=== PATIENT | female | born 1945 | race Caucasian/White ===

== ENCOUNTER 2022-12-27 10:17 | Emergency (ER) | payer MEDICARE, OTHER, SELFPAY ==
[2022-12-27 10:28] VITALS: BP 146/67; PULSE 82; RESP 16; TEMP 36.1; O2SAT 96; BMI 36.3
--- NOTE | 2022-12-27 10:46 | ED.GENADULT ---
HPI - General Adult General Chief complaint: Laceration/Wound Stated complaint: Gash on top of head Time Seen by Provider: 12/27/22 10:20 Source: patient Mode of arrival: ambulatory Limitations: no limitations History of Present Illness HPI narrative: 77-year-old female coming in today with laceration to the scalp. She states she was taking a nap when an object fell on her head. Patient has a shelf directly above her bed where she had a 5 lb concrete object on it. Her cat jumped on the shelf and not the object over falling directly on top of her head. This occurred approximately 2 hours ago. She has a mild headache at the site of the laceration, no dizziness, changes in vision or hearing. No speech changes. She denies any vomiting. She is not on any blood thinners. Related Data Home Medications Medication Instructions Recorded Confirmed atorvastatin 20 mg tablet 20 mg PO DAILY 12/27/22 12/27/22 bupropion HCl 100 mg tablet PO 12/27/22 cetirizine 5 mg tablet PO 12/27/22 cyanocobalamin (vitamin B-12) 2,000 mcg PO DAILY 12/27/22 12/27/22 1,000 mcg tablet diclofenac sodium 1 % topical gel 4 g topical QID PRN pain 12/27/22 12/27/22 docusate sodium 100 mg capsule 100 mg PO QPM 12/27/22 12/27/22 fluticasone propionate 50 1 spray intranasal BID 12/27/22 12/27/22 mcg/actuation nasal spray,suspension furosemide 20 mg tablet PO 12/27/22 gabapentin 600 mg tablet 1,200 mg PO BID 12/27/22 12/27/22 levothyroxine 137 mcg tablet 137 mcg PO DAILY 12/27/22 12/27/22 losartan 50 mg tablet 50 mg PO DAILY 12/27/22 12/27/22 melatonin 3 mg tablet 4.5 mg PO QPM insomnia 12/27/22 12/27/22 multivitamin with minerals-folic 1 tab PO DAILY 12/27/22 12/27/22 acid 80 mcg chewable tablet (Centrum Adult 50 Plus) omeprazole 40 mg capsule,delayed 40 mg PO DAILY 12/27/22 12/27/22 release tramadol 50 mg tablet 50 mg PO QAM 12/27/22 12/27/22 umeclidinium 62.5 mcg/actuation 1 inh inhalation DAILY 12/27/22 12/27/22 blister powder for inhalation (Incruse Ellipta) venlafaxine 75 mg tablet PO 12/27/22 Allergies Allergy/AdvReac Type Severity Reaction Status Date / Time droperidol Allergy Unknown Verified 12/27/22 10:25 Polyglactin Allergy Unknown Verified 12/27/22 10:25 Sulfa (Sulfonamide Allergy Unknown Verified 12/27/22 10:25 Antibiotics) Reglan Allergy Unknown Uncoded 01/24/22 11:09 Review of Systems Status of ROS: Reports: 10 or more systems reviewed and unremarkable except as noted in History and below [facility] Social History Smoking Status: Never smoker Do you use any of these nicotine containing products: None Second hand tobacco smoke exposure: No How often do you have a drink containing alcohol: monthly or less How many standard drinks containing alcohol do you have on a typical day: 1 or 2 AUDIT-C Alcohol total score: 1 Non-prescribed substance use: denies use service: No Exam Narrative: Exam Narrative: Well-nourished well-developed elderly patient in no acute distress. Alert and oriented x3. Answers questions appropriately. Mood and affect are appropriate. Thoughts are goal oriented and rational. No tangential or magical thinking noted. Patient speaks in full sentences without needing to catch her breath. Edentulous. HEENT: Normocephalic. Pupils are equally round reactive to light. Extraocular muscles are intact. Conjunctivae are moist without any icterus noted. Moist mucous membranes. On the left parietal scalp patient has a 1 in long laceration through the skin and into the subcutaneous tissue. No scalp is visible. Skin is not gaping open. Skin: Well perfused without any obvious rashes. Const: Vital Signs, click to edit/add: Vital Signs - 24 hr 12/27/22 10:28 Temperature 97.0 F L Pulse Rate [Pulse Oximeter] 82 Respiratory Rate 16 Blood Pressure [Ri ght Upper Arm] 146/67 H Pulse Oximetry 96 Oxygen Delivery Me thod Room Air Course Course Hospital Course: Wound was irrigated and anesthetized with lidocaine with epinephrine. Five miguelito were placed without complications or difficulty. Vital Signs Vital signs: Initial Vital Signs Temperature 97.0 F L 12/27/22 10:28 Temperature Source Temporal Artery Scan 12/27/22 10:28 Pulse Rate 82 12/27/22 10:28 Pulse Rhythm Regular 12/27/22 10:28 Pulse Strength 3+ Normal 12/27/22 10:28 Respiratory Rate 16 12/27/22 10:28 Blood Pressure 146/67 H 12/27/22 10:28 Blood Pressure Mean 93 12/27/22 10:28 Blood Pressure Position Sitting 12/27/22 10:28 Pulse Oximetry 96 12/27/22 10:28 Oxygen Delivery Method Room Air 12/27/22 10:28 Vital Signs Temperature 97.0 F L 12/27/22 10:28 Pulse Rate 82 12/27/22 10:28 Respiratory Rate 16 12/27/22 10:28 Blood Pressure 146/67 H 12/27/22 10:28 Pulse Oximetry 96 12/27/22 10:28 Oxygen Delivery Method Room Air 12/27/22 10:28 Temperature 97.0 F L 12/27/22 10:28 Pulse Rate 82 12/27/22 10:28 Respiratory Rate 16 12/27/22 10:28 Blood Pressure 146/67 H 12/27/22 10:28 Pulse Oximetry 96 12/27/22 10:28 Oxygen Delivery Method Room Air 12/27/22 10:28 Medical Decision Making MDM Narrative Medical decision making narrative: 77-year-old female laceration of the scalp treated per above. Tetanus shot was updated today as well. We discussed wound hygiene, signs and symptoms of infections reasons for follow-up. Stable removal in approximately 1 week. Discharge Plan Discharge Clinical Impression: Laceration Patient Disposition: Home, Self-Care Condition: Improved Additional Instructions: Keep head clean and dry. Okay to shower and wash her head like he normally would but avoid soaking such as going swimming. Watch for signs of infection which include redness of the area around the laceration, drainage. You should have your miguelito removed by your primary care provider in approximately 1 week. Prescriptions: No Action atorvastatin 20 mg tablet 20 mg PO DAILY bupropion HCl 100 mg tablet PO Centrum Adult 50 Plus 80 mcg tablet,chewable 1 tab PO DAILY losartan 50 mg tablet 50 mg PO DAILY levothyroxine 137 mcg tablet 137 mcg PO DAILY gabapentin 600 mg tablet 1,200 mg PO BID venlafaxine 75 mg tablet PO cetirizine 5 mg tablet PO cyanocobalamin (vitamin B-12) 1,000 mcg tablet 2,000 mcg PO DAILY melatonin 3 mg tablet 4.5 mg PO QPM omeprazole 40 mg capsule,delayed release(DR/EC) 40 mg PO DAILY tramadol 50 mg tablet 50 mg PO QAM docusate sodium 100 mg capsule 100 mg PO QPM furosemide 20 mg tablet PO fluticasone propionate 50 mcg/actuation spray,suspension 1 spray INTRANASAL BID diclofenac sodium 1 % gel 4 g topical QID PRN (Reason: pain) Incruse Ellipta 62.5 mcg/actuation blister with device 1 inh INHALATION DAILY Stand Alone Forms: [facility] Info Instructions
[2022-12-27] MEDS: TETANUS/DIPHTH/PERTUSSIS 0.5 ML SYRINGE IM (11:17)
== END 2022-12-27 11:42 | disposition home or self-care (01) ==
PROVIDERS: Emergency Provider Family Medicine
DX: S01.01XA Laceration without foreign body of scalp, initial encounter (principal); W22.8XXA Striking against or struck by other objects, initial encounter
CPT/HCPCS: 12001; 90471; 90715; 99283; 99284

== ENCOUNTER 2023-02-06 09:29 | Outpatient (CLI) | payer MEDICARE, OTHER, SELFPAY | END 2023-02-06 09:30 | disposition home or self-care (01) | PROVIDERS: PCP Family Medicine; Visit Provider Family Medicine | DX: I10 Essential (primary) hypertension (principal); E78.5 Hyperlipidemia, unspecified; E03.9 Hypothyroidism, unspecified | CPT/HCPCS: 80053; 80061; 84443 ==

== ENCOUNTER 2023-03-22 08:16 | Emergency (ER) | payer MEDICARE, OTHER, SELFPAY ==
[2023-03-22 08:28] VITALS: BP 139/62; PULSE 81; RESP 18; TEMP 36.2; O2SAT 98; BMI 36.0
--- NOTE | 2023-03-22 08:40 | CRLHL7_ITS ---
For Patients: As a result of the Century Cures Act, medical imaging exams and procedure reports are released immediately into your electronic medical record. You may view this report before your referring provider. If you have questions, please contact your health care provider. INDICATION: .DECREASED STOMA OUTPUT TECHNIQUE: CT abdomen and pelvis without contrast. COMPARISON: September 2021. FINDINGS: Lower chest: Calcified granuloma. Dense mitral calcification. ABDOMEN: Liver: Normal attenuation. Gallbladder and biliary: Cholecystectomy. Normal caliber bile ducts. Spleen: Normal size and attenuation. Pancreas: The noncontrast pancreas is homogeneous in attenuation without peripancreatic inflammatory changes or ductal dilatation. Adrenal glands: Normal adrenal glands. Kidneys and ureters: Normal attenuation. No radio-opaque calculi. No hydroureteronephrosis. GI tract: Iam-en-Y gastric bypass. Excluded stomach contains fluid. Fluid-filled distended and dilated loops of small bowel measuring up to 4.6 cm extending towards the patient`s right lower quadrant ileostomy. This becomes decompressed as the small-bowel traverses the ostomy site. Small amount of mesenteric edema abutting the bowel just prior to the ostomy. No pneumatosis Koko`s pouch. Vascular structures: Normal caliber aorta with atherosclerotic calcifications. Lymph nodes: No lymphadenopathy in the abdomen or pelvis by size criteria. Peritoneum: No free air or focal drainable collections. Diastasis of the rectus abdominis musculature. PELVIS: Genitourinary system: Urinary bladder is relatively decompressed. Atrophic uterus. SKELETAL STRUCTURES AND SOFT TISSUES: Lumbar spondylosis. IMPRESSION: Fluid-filled distended and dilated loops of small bowel measuring up to 4.6 cm extending towards the patient`s right lower quadrant ileostomy. This becomes decompressed as the small-bowel traverses the ostomy site. Small amount of mesenteric edema abutting the bowel just prior to the ostomy. 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 No pneumatosis. Please note that all CT scans at this facility use dose modulation, iterative reconstruction, and/or weight-based dosing when appropriate to reduce radiation dose to as low as reasonably achievable. Dictated by Hill Yen MD @ 03/22/2023 12:19:36 PM (Electronically Signed)
--- NOTE | 2023-03-22 08:57 | ED_ITS ---
HPI - General Adult General Date Seen: 03/22/23 Chief complaint: Abdominal Pain Stated complaint: Blockage, stoma pain Time Seen by Provider: 03/22/23 08:25 Source: patient and RN notes reviewed Mode of arrival: ambulatory Limitations: no limitations History of Present Illness HPI narrative: Patient is a 77-year-old woman with a history of ostomy. She notes for the past couple of days she has had worsening abdominal pain associated with no output from her stoma. She says she has had a blockage in the past, thought maybe if she took some stool softener she would improve but she is not improved. She does not believe she has had a fever, she has not had vomiting. Diffuse abdominal pain which she now describes as severe. History of atrial fibrillation although I do not see any anticoagulation. Other medical history and medications reviewed. She is status post total colectomy. She does not smoke or drink. Related Data Home Medications Medication Instructions Recorded Confirmed cyanocobalamin (vitamin B-12) 2,000 mcg PO DAILY@1200 12/27/22 03/22/23 1,000 mcg tablet diclofenac sodium 1 % topical gel 4 g topical QID PRN pain 12/27/22 03/22/23 docusate sodium 100 mg capsule 100 mg PO HS 12/27/22 03/22/23 fluticasone propionate 50 2 spray intranasal DAILY PRN 12/27/22 03/22/23 mcg/actuation nasal spray,suspension melatonin 3 mg tablet 4.5 mg PO HS insomnia 12/27/22 03/22/23 multivitamin with minerals-folic 2 tab PO DAILY@1200 12/27/22 03/22/23 acid 80 mcg chewable tablet (Centrum Adult 50 Plus) omeprazole 40 mg capsule,delayed 40 mg PO DAILY 12/27/22 03/22/23 release venlafaxine 75 mg tablet 75 mg PO TID 12/27/22 03/22/23 acetaminophen 500 mg tablet 1,000 mg PO 3XD 03/22/23 03/22/23 atorvastatin 20 mg tablet 20 mg PO HS 03/22/23 03/22/23 cetirizine 5 mg tablet 5 mg PO Q48H 03/22/23 03/22/23 cholecalciferol (vitamin D3) 50 50 mcg PO DAILY@1200 03/22/23 03/22/23 mcg (2,000 unit) capsule furosemide 20 mg tablet 20 mg PO MOFR 03/22/23 03/22/23 losartan 50 mg tablet 50 mg PO HS 03/22/23 03/22/23 Previous Rx's Medication Instructions Recorded bupropion HCl 100 mg tablet 100 mg PO BID #180 tabs 02/06/23 gabapentin 600 mg tablet 900 mg (1.5 x 600 mg) PO TID #405 02/06/23 tabs hydrocortisone 2.5 % topical cream 1 applic topical BID PRN rash #28 02/06/23 grams levothyroxine 137 mcg tablet 137 mcg PO DAILY #90 tabs 02/06/23 tramadol 50 mg tablet 50 mg PO QAM #90 tabs 02/06/23 Allergies Allergy/AdvReac Type Severity Reaction Status Date / Time droperidol Allergy Unknown Verified 03/22/23 08:38 metoclopramide [From Reglan] Allergy Unknown Verified 03/22/23 08:55 Polyglactin Allergy Unknown Verified 03/22/23 08:38 Sulfa (Sulfonamide Allergy Unknown Verified 03/22/23 08:38 Antibiotics) Review of Systems Status of ROS: Reports: 10 or more systems reviewed and unremarkable except as noted in History and below [facility] Medical History Small bowel obstruction ?K56.609 - Unspecified intestinal obstruction, unspecified as to partial versus complete obstruction (ICD-10) POLST (Physician Orders for Life-Sustaining Treatment) (~08/26/21) ?Z78.9 - Other specified health status (ICD-10) History of renal stone ?Z87.442 - Personal history of urinary calculi (ICD-10) History of DVT (deep vein thrombosis) ?Z86.718 - Personal history of other venous thrombosis and embolism (ICD-10) History of ischemic bowel disease (~2005) ?Z87.19 - Personal history of other diseases of the digestive system (ICD-10) Bleeding gastric varices (~2012) ?I86.4 - Gastric varices (ICD-10) Surgical History S/P bunionectomy ?Z98.890 - Other specified postprocedural states (ICD-10) S/P repair of ventral hernia ?Z98.890 - Other specified postprocedural states (ICD-10) ?Z87.19 - Personal history of other diseases of the digestive system (ICD-10) H/O thumb surgery ?Z98.890 - Other specified postprocedural states (ICD-10) S/P carpal tunnel release ?Z98.890 - Other specified postprocedural states (ICD-10) Status post bilateral knee replacements (~2014) ?Z96.653 - Presence of artificial knee joint, bilateral (ICD-10) S/P colectomy ?Z90.49 - Acquired absence of other specified parts of digestive tract (ICD- 10) S/P gastric bypass ?Z98.84 - Bariatric surgery status (ICD-10) Social History What is your current living situation?: I presently have a place to live Problems where you live: no known problems In the past 12 months, utilities in danger of being shut off: no In past 12 months, lack of transportation kept you from medical appts, meetings, work, or getting things needed for daily living: no In the past 12 mos, have been you worried that your food would run out before you had money to buy more?: never true In the past 12 mos, the food you bought just didn't last and you didn't have money to buy more?: sometimes true Smoking Status: Never smoker Do you use any of these nicotine containing products: None Second hand tobacco smoke exposure: No How often do you have a drink containing alcohol: monthly or less How many standard drinks containing alcohol do you have on a typical day: 1 or 2 AUDIT-C Alcohol total score: 1 Non-prescribed substance use: denies use How often does anyone, including family, friends and others, physically hurt you : never How often does anyone, including family, friends and others, insult or talk down to you: never How often does anyone, including family, friends and others, threaten you with harm: never How often does anyone, including family, friends and others, scream or curse at you: never Little interest or pleasure in doing things: several days Feeling down, depressed, or hopeless: several days service: No Exam Narrative: Exam Narrative: Vital signs as noted above. In general, an alert, nontoxic woman. Head: Normocephalic, atraumatic. Eyes: Pupils are equal reactive. Extraocular movements are full. Conjunctivae are normal. ENT: Mucous membranes are moist. Throat is normal. Neck: Supple without lymphadenopathy. Heart: Regular rate and rhythm. No murmur or rub. Lungs: Clear bilaterally. No increased work of breathing, crackles or wheezes. Abdomen: Nondistended. Diffuse tenderness without rebound guarding or rigidity. No ostomy output noted. Extremities: Well perfused. No edema. No calf tenderness. Pulses intact. Neurologic: Patient is alert and oriented to person and place. Speech is fluent. Face is symmetric. Moves all extremities equally. Affect: Normal. Skin: Warm and dry. Well perfused. Const: Vital Signs, click to edit/add: Vital Signs - 24 hr 03/22/23 08:28 03/22/23 10:12 03/22/23 12:33 Temperature 97.1 F L 98.2 F Pulse Rate [Right Pulse Oximeter] 81 86 84 Respiratory Rate 18 18 20 Blood Pressure [Ri ght Upper Arm] 139/62 137/65 129/56 L Pulse Oximetry 98 94 95 Oxygen Delivery Me thod Room Air Room Air Room Air Documenting provider has reviewed patient's vital signs: yes Course Course ED Course: Will place an IV, normal saline, Zofran, morphine. CT scan as well as labs ordered. Diagnostic considerations include likely bowel obstruction, rule out ischemic bowel or other acute process. Labs are fairly reassuring, white blood cell count is normal at 10.4, hemoglobin is 12.2. Metabolic panel is normal, LFT show mild elevations in transaminases, normal bilirubin and alk phos. CRP mildly elevated at 3.3, lipase is 292, TSH was elevated at 6.1 but free T4 is normal at 1.26. UA is unremarkable. Patient did have good pain control with the morphine, she did require a 2nd dose later in her ER stay. CT scan by my review showed fluid-filled dilated loops of small bowel with some air-fluid levels. Final radiology read is as follows:FINDINGS: Lower chest: Calcified granuloma. Dense mitral calcification. ABDOMEN: Liver: Normal attenuation. Gallbladder and biliary: Cholecystectomy. Normal caliber bile ducts. Spleen: Normal size and attenuation. Pancreas: The noncontrast pancreas is homogeneous in attenuation without peripancreatic inflammatory changes or ductal dilatation. Adrenal glands: Normal adrenal glands. Kidneys and ureters: Normal attenuation. No radio-opaque calculi. No hydroureteronephrosis. GI tract: Iam-en-Y gastric bypass. Excluded stomach contains fluid. Fluid- filled distended and dilated loops of small bowel measuring up to 4.6 cm extending towards the patient`s right lower quadrant ileostomy. This becomes decompressed as the small-bowel traverses the ostomy site. Small amount of mesenteric edema abutting the bowel just prior to the ostomy. No pneumatosis Koko`s pouch. Vascular structures: Normal caliber aorta with atherosclerotic calcifications. Lymph nodes: No lymphadenopathy in the abdomen or pelvis by size criteria. Peritoneum: No free air or focal drainable collections. Diastasis of the rectus abdominis musculature. PELVIS: Genitourinary system: Urinary bladder is relatively decompressed. Atrophic uterus. SKELETAL STRUCTURES AND SOFT TISSUES: Lumbar spondylosis. IMPRESSION: Fluid-filled distended and dilated loops of small bowel measuring up to 4.6 cm extending towards the patient`s right lower quadrant ileostomy. This becomes decompressed as the small-bowel traverses the ostomy site. Small amount of mesenteric edema abutting the bowel just prior to the ostomy. 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 No pneumatosis. Case was discussed with Dr. Lind concrete block maker for General surgery. She reviewed the images and patient's medical history, feels that she would be an overly complex surgical patient for our hospital and would be better served at a larger center with colorectal surgery. Patient's surgery was originally done at [place], they were on divert and do not anticipate beds in the near future. We were able to find a bed at [facility], I spoke with the on-call surgeon and colorectal surgery group who feel she is appropriate for transfer there. She has been hemodynamically stable, no vomiting, no other complaints. Stable for transfer. Vital Signs Vital signs: Initial Vital Signs Temperature 97.1 F L 03/22/23 08:28 Temperature Source Temporal Artery Scan 03/22/23 08:28 Pulse Rate 81 03/22/23 08:28 Pulse Rhythm Regular 03/22/23 08:28 Respiratory Rate 18 03/22/23 08:28 Blood Pressure 139/62 03/22/23 08:28 Blood Pressure Mean 87 03/22/23 08:28 Pulse Oximetry 98 03/22/23 08:28 Oxygen Delivery Method Room Air 03/22/23 08:28 Vital Signs Temperature 97.1 F L 03/22/23 08:28 Pulse Rate 81 03/22/23 08:28 Respiratory Rate 18 03/22/23 08:28 Blood Pressure 139/62 03/22/23 08:28 Pulse Oximetry 98 03/22/23 08:28 Oxygen Delivery Method Room Air 03/22/23 08:28 Temperature 98.2 F 03/22/23 10:12 Pulse Rate 84 03/22/23 12:33 Respiratory Rate 20 03/22/23 12:33 Blood Pressure 129/56 L 03/22/23 12:33 Pulse Oximetry 95 03/22/23 12:33 Oxygen Delivery Method Room Air 03/22/23 12:33 Medications Administered Medications: Discontinued Medications Generic Name Dose Route Start Last Admin Trade Name Freq PRN Reason Stop Dose Admin Sodium Chloride 1,000 mls @ 1,000 mls/hr 03/22/23 08:45 03/22/23 10:35 0.9 % Sodium Chloride 1000 Ml IV 03/22/23 09:44 Infused .Q1H CECILIA Infusion Morphine Sulfate 4 mg 03/22/23 08:46 03/22/23 09:22 Morphine 4 Mg/Ml Inj IVP 03/22/23 08:47 4 mg ONCE ONE Administration Morphine Sulfate 4 mg 03/22/23 13:47 03/22/23 13:55 Morphine 4 Mg/Ml Inj IVP 03/22/23 13:48 4 mg ONCE ONE Administration Ondansetron HCl 4 mg 03/22/23 08:46 03/22/23 09:22 Ondansetron 2 Mg/Ml Inj IVP 03/22/23 08:47 4 mg ONCE ONE Administration Medical Decision Making Lab Data Labs: Lab Results 03/22/23 03/22/23 Range/Units 09:26 11:40 WBC 10.37 (4.50-11.00) K/uL RBC 3.91 L (4.00-5.20) m/uL Hgb 12.2 (12.0-16.0) gm/dL Hct 37.6 (33.0-51.0) % MCV 96 (80-100) fL MCH 31 (26-34) pg MCHC 32 (32-36) gm/dL RDW Coeff of [place] 13.5 (11.5-15.5) % Plt Count 268 (140-440) K/uL Neut % (Auto) 84.4 H (42.0-72.0) % Lymph % (Auto) 8.9 L (20-44) % [place] % (Auto) 6.2 (0.0-11.0) % Eos % (Auto) 0.2 (0.0-7.0) % Baso % (Auto) 0.2 (0.0-3.0) % Neut # (Auto) 8.80 H (1.7-7.0) K/uL Lymph # (Auto) 0.90 (0.90-2.90) K/uL [place] # (Auto) 0.60 (0.00-0.90) K/UL Eos # (Auto) 0.02 (0.00-0.50) K/uL Baso # (Auto) 0.02 (0.00-0.30) K/uL Abs Immat Gran (auto) 0.01 (0.00-0.30) K/uL Imm/Tot Granulo (auto) 0.1 % Sodium 138 (135-149) mmol/L Potassium 4.5 (3.6-5.1) mmol/L Chloride 101 (96-114) mmol/L Carbon Dioxide 28 (20-32) mmol/L Anion Gap 9 (7-15) mEq/L BUN 21 (7-30) mg/dL Creatinine 0.8 (0.5-1.5) mg/dL Estimated Creat Clear 41.33 Estimated GFR 76 ml/min Glucose 136 H (60-115) mg/dL Lactate 1.1 (0.5-1.9) mmol/L Calcium 9.1 (8.4-10.6) mg/dL Total Bilirubin 0.6 (0.1-1.5) mg/dL Direct Bilirubin 0.0 (0.0-0.5) mg/dL AST 53 H (12-35) U/L ALT 44 H (4-35) U/L Alkaline Phosphatase 97 (40-150) U/L C-Reactive Protein 3.3 H (0.5-1.0) mg/dL Total Protein 7.5 (6.0-8.3) g/dL Albumin 4.2 (3.3-5.0) g/dL Lipase 292 (23-300) U/L TSH 6.130 H (0.270-4.200) uIU/mL Free T4 1.26 (0.70-1.85) ng/dL Urine Color Yellow (Yellow) Urine Appearance Clear (Clear) Urine pH 5.5 (5.0-8.5) Ur Specific [place] >= 1.030 (1.000-1.030) Urine Protein Negative (Negative) Urine Glucose (UA) Negative (Negative) Urine Ketones Negative (Negative) Urine Blood Negative (Negative) Urine Nitrite Negative (Negative) Urine Bilirubin Negative (Negative) Urine Urobilinogen 0.2 (0.2-1.0) Ur Leukocyte Esterase Negative (Negative) Urine RBC 2-5 A (0-2) Urine WBC 2-5 (0-5) Ur Squamous Epith Cells Few (None-Few) Urine Bacteria None (None) Discharge Plan Discharge Clinical Impression: Complication of ostomy, SBO (small bowel obstruction) Patient Disposition: Xfer Other Discharge Location: [facility] Condition: Improved Prescriptions: No Action bupropion HCl 100 mg tablet 100 mg PO BID Qty: 180 3RF gabapentin 600 mg tablet 900 mg PO TID Qty: 405 3RF hydrocortisone 2.5 % cream 1 applic topical BID PRN (Reason: rash) Qty: 28 3RF levothyroxine 137 mcg tablet 137 mcg PO DAILY Qty: 90 3RF tramadol 50 mg tablet 50 mg PO QAM Qty: 90 1RF acetaminophen 500 mg tablet 1,000 mg PO 3XD cetirizine 5 mg tablet 5 mg PO Q48H Rx Instructions: EVERY OTHER DAY AT HS cholecalciferol (vitamin D3) 50 mcg (2,000 unit) capsule 50 mcg PO DAILY@1200 losartan 50 mg tablet 50 mg PO HS atorvastatin 20 mg tablet 20 mg PO HS furosemide 20 mg tablet 20 mg PO MOFR Rx Instructions: MON AND FRI Centrum Adult 50 Plus 80 mcg tablet,chewable 2 tab PO DAILY@1200 venlafaxine 75 mg tablet 75 mg PO TID cyanocobalamin (vitamin B-12) 1,000 mcg tablet 2,000 mcg PO DAILY@1200 melatonin 3 mg tablet 4.5 mg PO HS omeprazole 40 mg capsule,delayed release(DR/EC) 40 mg PO DAILY docusate sodium 100 mg capsule 100 mg PO HS fluticasone propionate 50 mcg/actuation spray,suspension 2 spray INTRANASAL DAILY PRN diclofenac sodium 1 % gel 4 g topical QID PRN (Reason: pain) Stand Alone Forms: MyHealth Info Instructions
[2023-03-22] MEDS: 0.9 % SODIUM CHLORIDE 1000 ml 1,000 ML IV (09:17)
[2023-03-22] MEDS: MORPHINE 4 MG/ML INJ IVP ×2 (09:22→13:55)
[2023-03-22] MEDS: ONDANSETRON 2 MG/ML inj 4 MG IVP (09:22)
[2023-03-22 09:30] LABS: Lactate Sepsis w/Reflex* 1.1 mmol/L (0.5-1.9)
[2023-03-22 09:37] LABS: Basophils Absolute Auto 0.02 K/uL (0.00-0.30); Basophils Percent Auto 0.2 % (0.0-3.0); Eosinophils Absolute Auto 0.02 K/uL (0.00-0.50); Eosinophils Percent Auto 0.2 % (0.0-7.0); Hematocrit 37.6 % (33.0-51.0); Hemoglobin* 12.2 gm/dL (12.0-16.0); Immature Granulocytes Abs Auto 0.01 K/uL (0.00-0.30); Immature Granulocytes Pct Auto 0.1 %; Lymphocytes Percent Auto 8.9 % (20-44); Mean Corpuscular HGB Conc 32 gm/dL (32-36); Mean Corpuscular Hemoglobin 31 pg (26-34); Mean Corpuscular Volume 96 fL (80-100); Monocytes Percent Auto 6.2 % (0.0-11.0); Neutrophils Percent Auto 84.4 % (42.0-72.0); Platelet Count* 268 K/uL (140-440); RDW Coefficient of Variation % 13.5 % (11.5-15.5); Red Blood Count 3.91 m/uL (4.00-5.20); White Blood Count* 10.37 K/uL (4.50-11.00)
[2023-03-22 09:40] LABS: Slide Review Reflex No
--- NOTE | 2023-03-22 09:48 | ED.NURSE ---
pt had IV that infiltrated in right AC, was complaining of pain.
[2023-03-22 09:52] LABS: Albumin* 4.2 g/dL (3.3-5.0); Chloride* 101 mmol/L (96-114); Sodium* 138 mmol/L (135-149)
[2023-03-22 09:53] LABS: Potassium* 4.5 mmol/L (3.6-5.1)
[2023-03-22 09:54] LABS: Anion Gap 9 mEq/L (7-15); Carbon Dioxide* 28 mmol/L (20-32); Creatinine* 0.8 mg/dL (0.5-1.5); Est. Creatinine Clearance* 41.33; Estimated Glomerular Filt Rate 76 ml/min
[2023-03-22 09:55] LABS: Alkaline Phosphatase* 97 U/L (40-150); Aspartate Amino Transferase* 53 U/L (12-35); Bilirubin Total* 0.6 mg/dL (0.1-1.5); Blood Urea Nitrogen* 21 mg/dL (7-30); Lipase* 292 U/L (23-300); Total Protein* 7.5 g/dL (6.0-8.3)
[2023-03-22 09:56] LABS: Alanine Aminotransferase* 44 U/L (4-35); Calcium* 9.1 mg/dL (8.4-10.6); Glucose* 136 mg/dL (60-115)
[2023-03-22 09:58] LABS: C Reactive Protein* 3.3 mg/dL (0.5-1.0)
[2023-03-22 10:12] VITALS: BP 137/65; PULSE 86; RESP 18; TEMP 36.8; O2SAT 94
[2023-03-22 11:20] LABS: Free T4 Free Thyroxine* 1.26 ng/dL (0.70-1.85)
[2023-03-22 12:09] LABS: Appearance Urine Clear (Clear); Bilirubin Urine Negative (Negative); Blood Urine Negative (Negative); Color Urine Yellow (Yellow); Glucose Urine Negative (Negative); Ketones Urine Negative (Negative); Leukocyte Esterase Urine Negative (Negative); Nitrite Urine Negative (Negative); Protein Urine Negative (Negative); Specific Gravity Urine >= 1.030 (1.000-1.030); Urobilinogen Urine 0.2 (0.2-1.0); pH Urine 5.5 (5.0-8.5)
[2023-03-22 12:32] LABS: Squamous Epithelial Cell Urine Few (None-Few)
[2023-03-22 12:33] VITALS: BP 129/56; PULSE 84; RESP 20; O2SAT 95
[2023-03-22 14:25] VITALS: BP 119/65; PULSE 82; RESP 20; TEMP 36.7; O2SAT 95
--- NOTE | 2023-03-22 15:34 | ED.NURSE ---
Pt report given to EMS.
--- NOTE | 2023-03-22 15:57 | ED.NURSE ---
Pt report given to med surg nurse at [place].
== END 2023-03-22 15:20 | disposition other institution (70) ==
PROVIDERS: Emergency Provider Emergency Medicine; PCP Family Medicine
DX: K56.609 Unspecified intestinal obstruction, unspecified as to partial versus complete obstruction (principal); T85.698A Other mechanical complication of other specified internal prosthetic devices, implants and grafts, initial encounter
CPT/HCPCS: 36415; 74176; 80048; 80076; 81001; 83605; 83690; 84439; 84443; 85025; 86140; 99284; 99285; J2270; J2405; J7030

== ENCOUNTER 2023-03-22 15:04 | Outpatient (CLI) | payer MEDICARE, OTHER, SELFPAY | END 2023-03-22 15:05 | disposition home or self-care (01) | LOC: AMB 03-23 14:26 | PROVIDERS: PCP Family Medicine; Visit Provider Emergency Medicine | DX: K56.609 Unspecified intestinal obstruction, unspecified as to partial versus complete obstruction (principal) | CPT/HCPCS: A0425; A0426 ==

== ENCOUNTER 2023-05-24 15:09 | Emergency (ER) | payer MEDICARE, OTHER, SELFPAY ==
[2023-05-24] VITALS (27 sets, daily range): BP systolic 115–178; BP diastolic 65–115; PULSE 77–87; RESP 18–20; TEMP 36.1; O2SAT 87–99; BMI 37.2
--- NOTE | 2023-05-24 16:19 | CRLHL7_ITS ---
For Patients: As a result of the Century Cures Act, medical imaging exams and procedure reports are released immediately into your electronic medical record. You may view this report before your referring provider. If you have questions, please contact your health care provider. INDICATION: MID ABD PAIN, HX OBSTRUCTION. TECHNIQUE: CT abdomen and pelvis acquired with 100 cc Isovue 370 IV contrast. COMPARISON: None. FINDINGS: Lower chest: The right lower lobe calcified granuloma. Liver: Unremarkable. Normal in size and attenuation. No suspicious masses. Gallbladder and bile ducts: Gallbladder is absent. Mild intra and extrahepatic ductal dilatation likely related to reservoir effect. Pancreas: Unremarkable. No mass or inflammation. Spleen: Unremarkable. Normal in size. No masses. Adrenal glands: Unremarkable. No nodules. Kidneys: Unremarkable. No suspicious masses, stones, or hydronephrosis. GI tract: Status post gastric bypass. Postsurgical changes from colectomy. Right lower quadrant ileostomy. There is abrupt narrowing of the small bowel at the right abdominal wall at the site of the ileostomy. Proximally there is dilated loops of bowel with fecalization of the bowel content consistent with delayed transit. Bowel loops measure up to 4.7 centimeters in diameter. Gradual tapering to normal diameter proximally. Vasculature: Abdominal aorta is normal in caliber. Mesenteric arteries are patent. Lymph nodes: No lymphadenopathy. Peritoneum/Abdominal Wall: mild mesenteric edema is noted. Midline surgical scar. Ventral abdominal fat and bowel containing hernia. Small parastomal fat containing hernia. No intra-abdominal free air or free fluid. The Pelvis: Unremarkable. Bones: Scoliosis. Diffuse degenerative changes. IMPRESSION: 1. small-bowel obstruction with transition point at the right lower quadrant abdominal wall at the site of the ileostomy. There is fecalization of the bowel contents proximal to this with mild dilation of the small bowel loops consistent with delayed transit. 2. Postsurgical changes from gastric bypass and colectomy. Please note that all CT scans at this facility use dose modulation, iterative reconstruction, and/or weight-based dosing when appropriate to reduce radiation dose to as low as reasonably achievable. Dictated by Rick Barnett MD @ 05/24/2023 7:00:07 PM (Electronically Signed)
--- NOTE | 2023-05-24 16:23 | ED.GENADULT ---
HPI - General Adult General Chief complaint: Abdominal Pain <Tala Bell MD - Last Filed: 05/29/23 10:51> Stated complaint: Stoma pain <Tala Bell MD - Last Filed: 05/29/23 10:51> Time Seen by Provider: 05/24/23 15:56 <Tala Bell MD - Last Filed: 05/29/23 10:51> Source: patient <Tala Bell MD - Last Filed: 05/29/23 10:51> Mode of arrival: ambulatory <Tala Bell MD - Last Filed: 05/29/23 10:51> Limitations: no limitations <Tala Bell MD - Last Filed: 05/29/23 10:51> History of Present Illness HPI narrative: [age] Year old female presenting today with abdominal pain. States that she had potato soup for dinner last night and that it caused abdominal discomfort located across the middle of the abdomen. She states that since then the pain has been getting worse. She feels nauseated, denies vomiting. States that she has not eaten anything today. Also states that there has been no output from her ileostomy bag since 8:00 a.m. today which is now a total of 8 hours. She states that this is unusual. She denies any urinary symptoms. No fevers or chills. No seems to make the abdominal pain better or worse. Patient does state that she had a bowel obstruction last March which required surgical intervention, this feels very similar to that. At that time, she was transferred to [facility] due to her complex city and our lack of a colorectal surgeon. She has gotten care at [place] in the past but [place] was on divert at that time. She has been having intermittent abdominal discomfort on and off and was seen in the clinic in the [address] was done. I did review the results of that scan, no acute findings were found at that time. It sounds like in the early 1999s patient had a colectomy secondary to ischemic bowel with placement of ileostomy. 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 At [facility] she had an open lysis of adhesions and removal of a bezoar and a mesh that was causing part of the obstruction. It sounds like she may need a probable ileostomy revision at this time. Lastly, she has also had a gastric bypass. <Tala Bell MD - Last Filed: 05/29/23 10:51> Related Data Home medications: Home Medications Medication Instructions Recorded Confirmed cyanocobalamin (vitamin B-12) 2,000 mcg PO DAILY@1200 12/27/22 03/22/23 1,000 mcg tablet diclofenac sodium 1 % topical gel 4 g topical QID PRN pain 12/27/22 03/22/23 docusate sodium 100 mg capsule 100 mg PO HS 12/27/22 03/22/23 fluticasone propionate 50 2 spray intranasal DAILY PRN 12/27/22 03/22/23 mcg/actuation nasal spray,suspension melatonin 3 mg tablet 4.5 mg PO HS insomnia 12/27/22 03/22/23 multivitamin with minerals-folic 2 tab PO DAILY@1200 12/27/22 03/22/23 acid 80 mcg chewable tablet (Centrum Adult 50 Plus) omeprazole 40 mg capsule,delayed 40 mg PO DAILY 12/27/22 03/22/23 release venlafaxine 75 mg tablet 75 mg PO TID 12/27/22 03/22/23 acetaminophen 500 mg tablet 1,000 mg PO 3XD 03/22/23 03/22/23 atorvastatin 20 mg tablet 20 mg PO HS 03/22/23 03/22/23 cetirizine 5 mg tablet 5 mg PO Q48H 03/22/23 03/22/23 cholecalciferol (vitamin D3) 50 50 mcg PO DAILY@1200 03/22/23 03/22/23 mcg (2,000 unit) capsule furosemide 20 mg tablet 20 mg PO MOFR 03/22/23 03/22/23 losartan 50 mg tablet 50 mg PO HS 03/22/23 03/22/23 Previous Rx's Medication Instructions Recorded bupropion HCl 100 mg tablet 100 mg PO BID #180 tabs 02/06/23 gabapentin 600 mg tablet 900 mg (1.5 x 600 mg) PO TID #405 02/06/23 tabs hydrocortisone 2.5 % topical cream 1 applic topical BID PRN rash #28 02/06/23 grams levothyroxine 137 mcg tablet 137 mcg PO DAILY #90 tabs 02/06/23 tramadol 50 mg tablet 50 mg PO QAM #90 tabs 02/06/23 <Tala Bell MD - Last Filed: 05/29/23 10:51> Allergies/adverse reactions: Allergies Allergy/AdvReac Type Severity Reaction Status Date / Time droperidol Allergy Unknown Verified 05/24/23 17:29 metoclopramide [From Reglan] Allergy Unknown Verified 05/24/23 17:29 Polyglactin Allergy Unknown Verified 05/24/23 17:29 Sulfa (Sulfonamide Allergy Unknown Verified 05/24/23 17:29 Antibiotics) <Tala Bell MD - Last Filed: 05/29/23 10:51> Review of Systems Status of ROS: Reports: 10 or more systems reviewed and unremarkable except as noted in History and below <Tala Bell MD - Last Filed: 05/29/23 10:51> [facility] Medical History: Medical History Small bowel obstruction ?K56.609 - Unspecified intestinal obstruction, unspecified as to partial versus complete obstruction (ICD-10) POLST (Physician Orders for Life-Sustaining Treatment) (~08/26/21) ?Z78.9 - Other specified health status (ICD-10) History of renal stone ?Z87.442 - Personal history of urinary calculi (ICD-10) History of DVT (deep vein thrombosis) ?Z86.718 - Personal history of other venous thrombosis and embolism (ICD-10) History of ischemic bowel disease (~2005) ?Z87.19 - Personal history of other diseases of the digestive system (ICD-10) Bleeding gastric varices (~2012) ?I86.4 - Gastric varices (ICD-10) <Tala Bell MD - Last Filed: 05/29/23 10:51> Surgical History: Surgical History S/P bunionectomy ?Z98.890 - Other specified postprocedural states (ICD-10) S/P repair of ventral hernia ?Z98.890 - Other specified postprocedural states (ICD-10) ?Z87.19 - Personal history of other diseases of the digestive system (ICD-10) H/O thumb surgery ?Z98.890 - Other specified postprocedural states (ICD-10) S/P carpal tunnel release ?Z98.890 - Other specified postprocedural states (ICD-10) Status post bilateral knee replacements (~2015) ?Z96.653 - Presence of artificial knee joint, bilateral (ICD-10) S/P colectomy ?Z90.49 - Acquired absence of other specified parts of digestive tract (ICD-10) S/P gastric bypass ?Z98.84 - Bariatric surgery status (ICD-10) <Tala Bell MD - Last Filed: 05/29/23 10:51> Social History: Social History What is your current living situation?: I presently have a place to live Problems where you live: no known problems In the past 12 months, utilities in danger of being shut off: no In past 12 months, lack of transportation kept you from medical appts, meetings, work, or getting things needed for daily living: no In the past 12 mos, have been you worried that your food would run out before you had money to buy more?: never true In the past 12 mos, the food you bought just didn't last and you didn't have money to buy more?: sometimes true Smoking Status: Never smoker Do you use any of these nicotine containing products: None Second hand tobacco smoke exposure: No How often do you have a drink containing alcohol: monthly or less How many standard drinks containing alcohol do you have on a typical day: 1 or 2 AUDIT-C Alcohol total score: 1 Non-prescribed substance use: denies use How often does anyone, including family, friends and others, physically hurt you: never How often does anyone, including family, friends and others, insult or talk down to you: never How often does anyone, including family, friends and others, threaten you with harm: never How often does anyone, including family, friends and others, scream or curse at you: never Little interest or pleasure in doing things: several days Feeling down, depressed, or hopeless: several days service: No <Tala Bell MD - Last Filed: 05/29/23 10:51> Exam Narrative: Exam Narrative: Well-nourished well-developed patient in no acute distress. Alert and oriented x3. Answers questions appropriately. Mood and affect are appropriate. Thoughts are goal oriented and rational. No tangential or magical thinking noted. Patient speaks in full sentences without needing to catch her breath. Speech is slightly slurred. HEENT: Normocephalic atraumatic. Pupils are equally round reactive to light. Extraocular muscles are intact. Conjunctivae are moist without any icterus noted. Moist mucous membranes. Neck is soft. Cardiovascular: Heart is regular rate and rhythm S1 and S2 are present with a loud 4/6 systolic murmur. Lungs: Clear to auscultation bilaterally no wheezes rhonchi or rales are appreciated. Patient takes deep breaths without any discomfort. Abdomen: Soft and nondistended with hypoactive bowel sounds. No guarding or rebound. No masses or organomegaly appreciated. She has diffuse tenderness in the periumbilical region, around the stoma. Stoma is in place without any evidence of infection. There is a minimal amount of stool in the bag. Extremities: Bilateral lower extremities are without edema. Skin: Well perfused without any obvious rashes. <Tala Bell MD - Last Filed: 05/29/23 10:51> Const: Vital Signs, click to edit/add: Vital Signs - 24 hr 05/25/23 00:01 05/25/23 00:01 05/25/23 00:01 Pulse Rate Respiratory Rate Blood Pressure 160/74 H 160/74 H 160/74 H Pulse Oximetry Oxygen Delivery Me thod Oxygen Flow Rate 05/25/23 00:01 05/25/23 00:19 05/25/23 00:21 Pulse Rate 80 79 Respiratory Rate Blood Pressure 160/74 H 172/75 H Pulse Oximetry 99 98 Oxygen Delivery Me thod Oxygen Flow Rate 05/25/23 00:30 05/25/23 00:41 05/25/23 00:45 Pulse Rate 80 81 78 Respiratory Rate Blood Pressure Pulse Oximetry 99 95 94 Oxygen Delivery Me thod Oxygen Flow Rate 05/25/23 01:00 05/25/23 01:01 05/25/23 01:01 Pulse Rate 82 83 83 Respiratory Rate Blood Pressure 183/77 H 183/77 H Pulse Oximetry 94 92 92 Oxygen Delivery Me thod Oxygen Flow Rate 05/25/23 01:01 05/25/23 01:01 05/25/23 01:15 Pulse Rate 83 83 79 Respiratory Rate Blood Pressure 183/77 H 183/77 H Pulse Oximetry 92 92 93 Oxygen Delivery Me thod Oxygen Flow Rate 05/25/23 01:22 05/25/23 01:42 05/25/23 01:45 Pulse Rate 81 87 78 Respiratory Rate Blood Pressure 139/56 L Pulse Oximetry 94 97 98 Oxygen Delivery Me thod Oxygen Flow Rate 05/25/23 02:00 05/25/23 02:02 05/25/23 02:15 Pulse Rate 76 76 77 Respiratory Rate Blood Pressure 137/51 L Pulse Oximetry 98 98 99 Oxygen Delivery Me thod Oxygen Flow Rate 05/25/23 02:30 05/25/23 02:31 05/25/23 02:45 Pulse Rate 78 80 76 Respiratory Rate Blood Pressure 140/66 H Pulse Oximetry 99 99 99 Oxygen Delivery Me thod Oxygen Flow Rate 05/25/23 03:00 05/25/23 03:02 05/25/23 03:15 Pulse Rate 80 79 78 Respiratory Rate Blood Pressure 123/113 H Pulse Oximetry 97 99 98 Oxygen Delivery Me thod Oxygen Flow Rate 05/25/23 03:30 05/25/23 03:32 05/25/23 03:45 Pulse Rate 78 80 78 Respiratory Rate Blood Pressure 168/93 H Pulse Oximetry 98 99 100 Oxygen Delivery Me thod Oxygen Flow Rate 05/25/23 04:00 05/25/23 04:02 05/25/23 04:15 Pulse Rate 78 78 79 Respiratory Rate Blood Pressure 193/103 H Pulse Oximetry 99 99 94 Oxygen Delivery Me thod Oxygen Flow Rate 05/25/23 04:30 05/25/23 04:32 05/25/23 04:45 Pulse Rate 78 79 82 Respiratory Rate Blood Pressure 165/62 H Pulse Oximetry 94 94 94 Oxygen Delivery Me thod Nasal Cannula Oxygen Flow Rate 2 05/25/23 05:30 05/25/23 05:35 05/25/23 05:45 Pulse Rate 82 85 83 Respiratory Rate Blood Pressure 135/72 Pulse Oximetry 91 91 91 Oxygen Delivery Me thod Oxygen Flow Rate 05/25/23 06:00 05/25/23 06:02 05/25/23 06:15 Pulse Rate 87 85 81 Respiratory Rate Blood Pressure 120/55 L Pulse Oximetry 90 91 91 Oxygen Delivery Me thod Oxygen Flow Rate 05/25/23 06:30 05/25/23 06:31 05/25/23 06:32 Pulse Rate 82 83 84 Respiratory Rate Blood Pressure 97/57 L Pulse Oximetry 92 95 94 Oxygen Delivery Me thod Oxygen Flow Rate 05/25/23 06:45 05/25/23 07:00 05/25/23 07:03 Pulse Rate 83 82 83 Respiratory Rate 18 Blood Pressure 125/59 L Pulse Oximetry 90 89 91 Oxygen Delivery Me thod Nasal Cannula Oxygen Flow Rate 2 05/25/23 07:15 05/25/23 07:43 05/25/23 07:45 Pulse Rate 84 84 88 Respiratory Rate Blood Pressure Pulse Oximetry 91 96 96 Oxygen Delivery Me thod Oxygen Flow Rate 05/25/23 08:05 05/25/23 08:07 05/25/23 08:42 Pulse Rate 92 81 Respiratory Rate Blood Pressure 151/74 H Pulse Oximetry 96 100 Oxygen Delivery Me thod Oxygen Flow Rate 05/25/23 08:45 05/25/23 09:00 05/25/23 09:04 Pulse Rate 82 84 78 Respiratory Rate Blood Pressure 138/60 Pulse Oximetry 100 99 98 Oxygen Delivery Me thod Oxygen Flow Rate 05/25/23 09:09 05/25/23 09:15 Pulse Rate 76 80 Respiratory Rate 16 Blood Pressure 130/53 L Pulse Oximetry 99 98 Oxygen Delivery Me thod Nasal Cannula Oxygen Flow Rate 2 <Tala Bell MD - Last Filed: 05/29/23 10:51> Vital Signs, click to edit/add: Vital Signs - 24 hr 05/25/23 00:01 05/25/23 00:01 05/25/23 00:01 Pulse Rate Respiratory Rate Blood Pressure 160/74 H 160/74 H 160/74 H Pulse Oximetry Oxygen Delivery Me thod Oxygen Flow Rate 05/25/23 00:01 05/25/23 00:19 05/25/23 00:21 Pulse Rate 80 79 Respiratory Rate Blood Pressure 160/74 H 172/75 H Pulse Oximetry 99 98 Oxygen Delivery Me thod Oxygen Flow Rate 05/25/23 00:30 05/25/23 00:41 05/25/23 00:45 Pulse Rate 80 81 78 Respiratory Rate Blood Pressure Pulse Oximetry 99 95 94 Oxygen Delivery Me thod Oxygen Flow Rate 05/25/23 01:00 05/25/23 01:01 05/25/23 01:01 Pulse Rate 82 83 83 Respiratory Rate Blood Pressure 183/77 H 183/77 H Pulse Oximetry 94 92 92 Oxygen Delivery Me thod Oxygen Flow Rate 05/25/23 01:01 05/25/23 01:01 05/25/23 01:15 Pulse Rate 83 83 79 Respiratory Rate Blood Pressure 183/77 H 183/77 H Pulse Oximetry 92 92 93 Oxygen Delivery Me thod Oxygen Flow Rate 05/25/23 01:22 05/25/23 01:42 05/25/23 01:45 Pulse Rate 81 87 78 Respiratory Rate Blood Pressure 139/56 L Pulse Oximetry 94 97 98 Oxygen Delivery Me thod Oxygen Flow Rate 05/25/23 02:00 05/25/23 02:02 05/25/23 02:15 Pulse Rate 76 76 77 Respiratory Rate Blood Pressure 137/51 L Pulse Oximetry 98 98 99 Oxygen Delivery Me thod Oxygen Flow Rate 05/25/23 02:30 05/25/23 02:31 05/25/23 02:45 Pulse Rate 78 80 76 Respiratory Rate Blood Pressure 140/66 H Pulse Oximetry 99 99 99 Oxygen Delivery Me thod Oxygen Flow Rate 05/25/23 03:00 05/25/23 03:02 05/25/23 03:15 Pulse Rate 80 79 78 Respiratory Rate Blood Pressure 123/113 H Pulse Oximetry 97 99 98 Oxygen Delivery Me thod Oxygen Flow Rate 05/25/23 03:30 05/25/23 03:32 05/25/23 03:45 Pulse Rate 78 80 78 Respiratory Rate Blood Pressure 168/93 H Pulse Oximetry 98 99 100 Oxygen Delivery Me thod Oxygen Flow Rate 05/25/23 04:00 05/25/23 04:02 05/25/23 04:15 Pulse Rate 78 78 79 Respiratory Rate Blood Pressure 193/103 H Pulse Oximetry 99 99 94 Oxygen Delivery Me thod Oxygen Flow Rate 05/25/23 04:30 05/25/23 04:32 05/25/23 04:45 Pulse Rate 78 79 82 Respiratory Rate Blood Pressure 165/62 H Pulse Oximetry 94 94 94 Oxygen Delivery Me thod Nasal Cannula Oxygen Flow Rate 2 05/25/23 05:30 05/25/23 05:35 05/25/23 05:45 Pulse Rate 82 85 83 Respiratory Rate Blood Pressure 135/72 Pulse Oximetry 91 91 91 Oxygen Delivery Me thod Oxygen Flow Rate 05/25/23 06:00 05/25/23 06:02 05/25/23 06:15 Pulse Rate 87 85 81 Respiratory Rate Blood Pressure 120/55 L Pulse Oximetry 90 91 91 Oxygen Delivery Me thod Oxygen Flow Rate 05/25/23 06:30 05/25/23 06:31 05/25/23 06:32 Pulse Rate 82 83 84 Respiratory Rate Blood Pressure 97/57 L Pulse Oximetry 92 95 94 Oxygen Delivery Me thod Oxygen Flow Rate 05/25/23 06:45 05/25/23 07:00 05/25/23 07:03 Pulse Rate 83 82 83 Respiratory Rate 18 Blood Pressure 125/59 L Pulse Oximetry 90 89 91 Oxygen Delivery Me thod Nasal Cannula Oxygen Flow Rate 2 05/25/23 07:15 05/25/23 07:43 05/25/23 07:45 Pulse Rate 84 84 88 Respiratory Rate Blood Pressure Pulse Oximetry 91 96 96 Oxygen Delivery Me thod Oxygen Flow Rate 05/25/23 08:05 05/25/23 08:07 05/25/23 08:42 Pulse Rate 92 81 Respiratory Rate Blood Pressure 151/74 H Pulse Oximetry 96 100 Oxygen Delivery Me thod Oxygen Flow Rate 05/25/23 08:45 05/25/23 09:00 05/25/23 09:04 Pulse Rate 82 84 78 Respiratory Rate Blood Pressure 138/60 Pulse Oximetry 100 99 98 Oxygen Delivery Me thod Oxygen Flow Rate 05/25/23 09:09 05/25/23 09:15 Pulse Rate 76 80 Respiratory Rate 16 Blood Pressure 130/53 L Pulse Oximetry 99 98 Oxygen Delivery Me thod Nasal Cannula Oxygen Flow Rate 2 <Tiara Yousif MD - Last Filed: 05/25/23 23:52> Vital Signs, click to edit/add: Vital Signs - 24 hr 05/25/23 00:01 05/25/23 00:01 05/25/23 00:01 Pulse Rate Respiratory Rate Blood Pressure 160/74 H 160/74 H 160/74 H Pulse Oximetry Oxygen Delivery Me thod Oxygen Flow Rate 05/25/23 00:01 05/25/23 00:19 05/25/23 00:21 Pulse Rate 80 79 Respiratory Rate Blood Pressure 160/74 H 172/75 H Pulse Oximetry 99 98 Oxygen Delivery Me thod Oxygen Flow Rate 05/25/23 00:30 05/25/23 00:41 05/25/23 00:45 Pulse Rate 80 81 78 Respiratory Rate Blood Pressure Pulse Oximetry 99 95 94 Oxygen Delivery Me thod Oxygen Flow Rate 05/25/23 01:00 05/25/23 01:01 05/25/23 01:01 Pulse Rate 82 83 83 Respiratory Rate Blood Pressure 183/77 H 183/77 H Pulse Oximetry 94 92 92 Oxygen Delivery Me thod Oxygen Flow Rate 05/25/23 01:01 05/25/23 01:01 05/25/23 01:15 Pulse Rate 83 83 79 Respiratory Rate Blood Pressure 183/77 H 183/77 H Pulse Oximetry 92 92 93 Oxygen Delivery Me thod Oxygen Flow Rate 05/25/23 01:22 05/25/23 01:42 05/25/23 01:45 Pulse Rate 81 87 78 Respiratory Rate Blood Pressure 139/56 L Pulse Oximetry 94 97 98 Oxygen Delivery Me thod Oxygen Flow Rate 05/25/23 02:00 05/25/23 02:02 05/25/23 02:15 Pulse Rate 76 76 77 Respiratory Rate Blood Pressure 137/51 L Pulse Oximetry 98 98 99 Oxygen Delivery Me thod Oxygen Flow Rate 05/25/23 02:30 05/25/23 02:31 05/25/23 02:45 Pulse Rate 78 80 76 Respiratory Rate Blood Pressure 140/66 H Pulse Oximetry 99 99 99 Oxygen Delivery Me thod Oxygen Flow Rate 05/25/23 03:00 05/25/23 03:02 05/25/23 03:15 Pulse Rate 80 79 78 Respiratory Rate Blood Pressure 123/113 H Pulse Oximetry 97 99 98 Oxygen Delivery Me thod Oxygen Flow Rate 05/25/23 03:30 05/25/23 03:32 05/25/23 03:45 Pulse Rate 78 80 78 Respiratory Rate Blood Pressure 168/93 H Pulse Oximetry 98 99 100 Oxygen Delivery Me thod Oxygen Flow Rate 05/25/23 04:00 05/25/23 04:02 05/25/23 04:15 Pulse Rate 78 78 79 Respiratory Rate Blood Pressure 193/103 H Pulse Oximetry 99 99 94 Oxygen Delivery Me thod Oxygen Flow Rate 05/25/23 04:30 05/25/23 04:32 05/25/23 04:45 Pulse Rate 78 79 82 Respiratory Rate Blood Pressure 165/62 H Pulse Oximetry 94 94 94 Oxygen Delivery Me thod Nasal Cannula Oxygen Flow Rate 2 05/25/23 05:30 05/25/23 05:35 05/25/23 05:45 Pulse Rate 82 85 83 Respiratory Rate Blood Pressure 135/72 Pulse Oximetry 91 91 91 Oxygen Delivery Me thod Oxygen Flow Rate 05/25/23 06:00 05/25/23 06:02 05/25/23 06:15 Pulse Rate 87 85 81 Respiratory Rate Blood Pressure 120/55 L Pulse Oximetry 90 91 91 Oxygen Delivery Me thod Oxygen Flow Rate 05/25/23 06:30 05/25/23 06:31 05/25/23 06:32 Pulse Rate 82 83 84 Respiratory Rate Blood Pressure 97/57 L Pulse Oximetry 92 95 94 Oxygen Delivery Me thod Oxygen Flow Rate 05/25/23 06:45 05/25/23 07:00 05/25/23 07:03 Pulse Rate 83 82 83 Respiratory Rate 18 Blood Pressure 125/59 L Pulse Oximetry 90 89 91 Oxygen Delivery Me thod Nasal Cannula Oxygen Flow Rate 2 05/25/23 07:15 05/25/23 07:43 05/25/23 07:45 Pulse Rate 84 84 88 Respiratory Rate Blood Pressure Pulse Oximetry 91 96 96 Oxygen Delivery Me thod Oxygen Flow Rate 05/25/23 08:05 05/25/23 08:07 05/25/23 08:42 Pulse Rate 92 81 Respiratory Rate Blood Pressure 151/74 H Pulse Oximetry 96 100 Oxygen Delivery Me thod Oxygen Flow Rate 05/25/23 08:45 05/25/23 09:00 05/25/23 09:04 Pulse Rate 82 84 78 Respiratory Rate Blood Pressure 138/60 Pulse Oximetry 100 99 98 Oxygen Delivery Me thod Oxygen Flow Rate 05/25/23 09:09 05/25/23 09:15 Pulse Rate 76 80 Respiratory Rate 16 Blood Pressure 130/53 L Pulse Oximetry 99 98 Oxygen Delivery Me thod Nasal Cannula Oxygen Flow Rate 2 <Prabha Michaud MD - Last Filed: 05/25/23 09:30> Course Course ED Course: IV is established and patient given IV morphine and Zofran. UA shows 1+ leukocyte esterase and wbc's. Normal lactate. CBC and chemistries unremarkable. LFTs unremarkable. She Normal CRP. Normal lipase at 180. Abdominal CT done showing small-bowel obstruction with a transition point at the site of the ileostomy. Because of this I did insert my sterile, gloved finger into the ileostomy and found no obvious evidence of obstruction. Discussed this case with Dr. Garcia, surgeon on-call today, who recommends the patient be transferred secondary to complexity. We have called every major hospital system in the [facility] including [facility], [place], [facility], [place], [facility], [facility], [facility], hospitals in [place] and [place] - and there are no beds available to transfer the patient to. I did speak to Dr. Montenegro at [facility] - she is aware that the patient is on their wait list. In the meantime we have started her on Dilaudid every 2 hours, maintenance normal saline and she has been NPO. We did attempt an NG tube unfortunately, her nose is so tortuous that we were unsuccessful despite more than 1 attempt. Patient has been hemodynamically stable, after dose of the lot her oxygen saturation did drop into the upper 80s so she was placed on oxygen. Her lab work will be repeated at the 8 hour elisa to make sure she is not developing infection. <Tala Bell MD - Last Filed: 05/29/23 10:51> Reevaluation(s) Time of Reevaluation #1: 01:11 <Tiara Yousif MD - Last Filed: 05/25/23 23:52> Reevaluation #1: Dr. Yousif- I assumed care from Dr. Bell. Shortly after my acceptance, there seemed to call from Dr. Escoto from [place], hospitalist. After discussion, patient has been accepted for transfer. Anticipate call in 10-15 minutes. We will arrange ALS ground transfer. Patient is complaining of increased pain. I reviewed her pain control orders and do find that they would be underdosed for someone her age and size. I have ordered a 0.5 mg IV x1 bolus of Dilaudid and have increased her p.r.n. dosing from point to every 2 hours to 0.5 mg every 2 hours. Labs and imaging reviewed. I have also reviewed the repeat labs that were ordered and have not detected any major abnormalities other than a mild increase in CRP level. No significant leukocytosis or signs of hemorrhage. [id number]: I have received word from our EMS team that due to road conditions, transfers being planned at 10:00 a.m.. Will transfer care to incoming day shift partner. No additional issues overnight, pain control did improve with increased Dilaudid. Continues on maintenance fluid. <Tiara Yousif MD - Last Filed: 05/25/23 23:52> Reevaluation #2: Dr. Michaud: I assumed care from Dr. Yousif. Patient currently awaiting transfer to [facility] for management of recurrent small-bowel obstruction. Patient's pain has been controlled with Dilaudid. Patient is now departing at 0925. EMS will use fentanyl if needed for discomfort. <Prabha Michaud MD - Last Filed: 05/25/23 09:30> Vital Signs Vital signs: Initial Vital Signs Temperature 97.0 F L 05/24/23 15:18 Temperature Source Temporal Artery Scan 05/24/23 15:18 Pulse Rate 81 05/24/23 15:18 Respiratory Rate 20 05/24/23 15:18 Blood Pressure 144/76 H 05/24/23 15:18 Blood Pressure Mean 98 05/24/23 15:18 Blood Pressure Position Sitting 05/24/23 15:18 Pulse Oximetry 97 05/24/23 15:18 Oxygen Delivery Method Room Air 05/24/23 15:18 Vital Signs Temperature 97.0 F L 05/24/23 15:18 Pulse Rate 81 05/24/23 15:18 Respiratory Rate 20 05/24/23 15:18 Blood Pressure 144/76 H 05/24/23 15:18 Pulse Oximetry 97 05/24/23 15:18 Oxygen Delivery Method Room Air 05/24/23 15:18 Temperature 97.0 F L 05/24/23 15:18 Pulse Rate 80 05/25/23 09:15 Respiratory Rate 16 05/25/23 09:09 Blood Pressure 130/53 L 05/25/23 09:09 Pulse Oximetry 98 05/25/23 09:15 Oxygen Delivery Method Nasal Cannula 05/25/23 09:09 Oxygen Flow Rate 2 05/25/23 09:09 <Tala Bell MD - Last Filed: 05/29/23 10:51> Initial Vital Signs Temperature 97.0 F L 05/24/23 15:18 Temperature Source Temporal Artery Scan 05/24/23 15:18 Pulse Rate 81 05/24/23 15:18 Respiratory Rate 20 05/24/23 15:18 Blood Pressure 144/76 H 05/24/23 15:18 Blood Pressure Mean 98 05/24/23 15:18 Blood Pressure Position Sitting 05/24/23 15:18 Pulse Oximetry 97 05/24/23 15:18 Oxygen Delivery Method Room Air 05/24/23 15:18 Vital Signs Temperature 97.0 F L 05/24/23 15:18 Pulse Rate 81 05/24/23 15:18 Respiratory Rate 20 05/24/23 15:18 Blood Pressure 144/76 H 05/24/23 15:18 Pulse Oximetry 97 05/24/23 15:18 Oxygen Delivery Method Room Air 05/24/23 15:18 Temperature 97.0 F L 05/24/23 15:18 Pulse Rate 80 05/25/23 09:15 Respiratory Rate 16 05/25/23 09:09 Blood Pressure 130/53 L 05/25/23 09:09 Pulse Oximetry 98 05/25/23 09:15 Oxygen Delivery Method Nasal Cannula 05/25/23 09:09 Oxygen Flow Rate 2 05/25/23 09:09 <Tiara Yousif MD - Last Filed: 05/25/23 23:52> Initial Vital Signs Temperature 97.0 F L 05/24/23 15:18 Temperature Source Temporal Artery Scan 05/24/23 15:18 Pulse Rate 81 05/24/23 15:18 Respiratory Rate 20 05/24/23 15:18 Blood Pressure 144/76 H 05/24/23 15:18 Blood Pressure Mean 98 05/24/23 15:18 Blood Pressure Position Sitting 05/24/23 15:18 Pulse Oximetry 97 05/24/23 15:18 Oxygen Delivery Method Room Air 05/24/23 15:18 Vital Signs Temperature 97.0 F L 05/24/23 15:18 Pulse Rate 81 05/24/23 15:18 Respiratory Rate 20 05/24/23 15:18 Blood Pressure 144/76 H 05/24/23 15:18 Pulse Oximetry 97 05/24/23 15:18 Oxygen Delivery Method Room Air 05/24/23 15:18 Temperature 97.0 F L 05/24/23 15:18 Pulse Rate 80 05/25/23 09:15 Respiratory Rate 16 05/25/23 09:09 Blood Pressure 130/53 L 05/25/23 09:09 Pulse Oximetry 98 05/25/23 09:15 Oxygen Delivery Method Nasal Cannula 05/25/23 09:09 Oxygen Flow Rate 2 05/25/23 09:09 <Prabha Michaud MD - Last Filed: 05/25/23 09:30> Medications Administered Medications: Discontinued Medications Generic Name Dose Route Start Last Admin Trade Name Freq PRN Reason Stop Dose Admin Hydromorphone HCl 0.2 mg 05/24/23 21:25 05/24/23 23:58 Hydromorphone 0.5 Mg/0.5 Ml Inj IVP 0.2 mg Q2H PRN Administration Pain Hydromorphone HCl 0.5 mg 05/25/23 01:10 05/25/23 07:42 Hydromorphone 0.5 Mg/0.5 Ml Inj IVP 0.5 mg Q2H PRN Administration Pain Hydromorphone HCl 0.5 mg 05/25/23 01:10 05/25/23 01:45 Hydromorphone 0.5 Mg/0.5 Ml Inj IVP 05/25/23 01:11 0.5 mg ONCE ONE Administration Sodium Chloride 1,000 mls @ 125 mls/hr 05/24/23 21:25 05/25/23 06:30 0.9 % Sodium Chloride 1000 Ml IV 125 mls/hr .Q8H CECILIA Administration Morphine Sulfate 2 mg 05/24/23 16:19 05/24/23 17:26 Morphine 2 Mg/Ml Inj IVP 05/24/23 16:20 2 mg ONCE ONE Administration Morphine Sulfate 2 mg 05/24/23 19:51 05/24/23 20:27 Morphine 2 Mg/Ml Inj IVP 05/24/23 19:52 2 mg ONCE ONE Administration Ondansetron HCl 4 mg 05/24/23 16:19 05/24/23 17:26 Ondansetron 2 Mg/Ml Inj IVP 05/24/23 16:20 4 mg ONCE ONE Administration <Tala Bell MD - Last Filed: 05/29/23 10:51> Discontinued Medications Generic Name Dose Route Start Last Admin Trade Name Freq PRN Reason Stop Dose Admin Hydromorphone HCl 0.2 mg 05/24/23 21:25 05/24/23 23:58 Hydromorphone 0.5 Mg/0.5 Ml Inj IVP 0.2 mg Q2H PRN Administration Pain Hydromorphone HCl 0.5 mg 05/25/23 01:10 05/25/23 07:42 Hydromorphone 0.5 Mg/0.5 Ml Inj IVP 0.5 mg Q2H PRN Administration Pain Hydromorphone HCl 0.5 mg 05/25/23 01:10 05/25/23 01:45 Hydromorphone 0.5 Mg/0.5 Ml Inj IVP 05/25/23 01:11 0.5 mg ONCE ONE Administration Sodium Chloride 1,000 mls @ 125 mls/hr 05/24/23 21:25 05/25/23 06:30 0.9 % Sodium Chloride 1000 Ml IV 125 mls/hr .Q8H CECILIA Administration Morphine Sulfate 2 mg 05/24/23 16:19 05/24/23 17:26 Morphine 2 Mg/Ml Inj IVP 05/24/23 16:20 2 mg ONCE ONE Administration Morphine Sulfate 2 mg 05/24/23 19:51 05/24/23 20:27 Morphine 2 Mg/Ml Inj IVP 05/24/23 19:52 2 mg ONCE ONE Administration Ondansetron HCl 4 mg 05/24/23 16:19 05/24/23 17:26 Ondansetron 2 Mg/Ml Inj IVP 05/24/23 16:20 4 mg ONCE ONE Administration <Tiara Yousif MD - Last Filed: 05/25/23 23:52> Discontinued Medications Generic Name Dose Route Start Last Admin Trade Name Freq PRN Reason Stop Dose Admin Hydromorphone HCl 0.2 mg 05/24/23 21:25 05/24/23 23:58 Hydromorphone 0.5 Mg/0.5 Ml Inj IVP 0.2 mg Q2H PRN Administration Pain Hydromorphone HCl 0.5 mg 05/25/23 01:10 05/25/23 07:42 Hydromorphone 0.5 Mg/0.5 Ml Inj IVP 0.5 mg Q2H PRN Administration Pain Hydromorphone HCl 0.5 mg 05/25/23 01:10 05/25/23 01:45 Hydromorphone 0.5 Mg/0.5 Ml Inj IVP 05/25/23 01:11 0.5 mg ONCE ONE Administration Sodium Chloride 1,000 mls @ 125 mls/hr 05/24/23 21:25 05/25/23 06:30 0.9 % Sodium Chloride 1000 Ml IV 125 mls/hr .Q8H CECILIA Administration Morphine Sulfate 2 mg 05/24/23 16:19 05/24/23 17:26 Morphine 2 Mg/Ml Inj IVP 05/24/23 16:20 2 mg ONCE ONE Administration Morphine Sulfate 2 mg 05/24/23 19:51 05/24/23 20:27 Morphine 2 Mg/Ml Inj IVP 05/24/23 19:52 2 mg ONCE ONE Administration Ondansetron HCl 4 mg 05/24/23 16:19 05/24/23 17:26 Ondansetron 2 Mg/Ml Inj IVP 05/24/23 16:20 4 mg ONCE ONE Administration <Prabha Michaud MD - Last Filed: 05/25/23 09:30> Medical Decision Making MDM Narrative Medical decision making narrative: Asymptomatic UTI <Tala Bell MD - Last Filed: 05/29/23 10:51> Lab Data Labs: Lab Results 05/24/23 05/24/23 05/24/23 Range/Units 16:30 16:45 23:54 WBC 7.49 7.71 (4.50-11.00) K/uL RBC 3.72 L 3.53 L (4.00-5.20) m/uL Hgb 11.3 L 11.0 L (12.0-16.0) gm/dL Hct 35.3 33.7 (33.0-51.0) % MCV 95 96 (80-100) fL MCH 30 31 (26-34) pg MCHC 32 33 (32-36) gm/dL RDW Coeff of [place]ed[place] 14.8 14.8 (11.5-15.5) % Plt Count 293 262 (140-440) K/uL Neut % (Auto) 73.3 H 70.2 (42.0-72.0) % Lymph % (Auto) 18.6 L 20.2 (20-44) % [place] % (Auto) 7.2 8.4 (0.0-11.0) % Eos % (Auto) 0.3 0.3 (0.0-7.0) % Baso % (Auto) 0.5 0.3 (0.0-3.0) % Neut # (Auto) 5.50 5.41 (1.7-7.0) K/uL Lymph # (Auto) 1.40 1.56 (0.90-2.90) K/uL [place] # (Auto) 0.50 0.60 (0.00-0.90) K/UL Eos # (Auto) 0.02 0.02 (0.00-0.50) K/uL Baso # (Auto) 0.04 0.02 (0.00-0.30) K/uL Abs Immat Gran (auto) 0.01 0.05 (0.00-0.30) K/uL Imm/Tot Granulo (auto) 0.1 0.6 % Sodium 136 (135-149) mmol/L Potassium 4.4 (3.6-5.1) mmol/L Chloride 105 (96-114) mmol/L Carbon Dioxide 23 (20-32) mmol/L Anion Gap 8 (7-15) mEq/L BUN 16 (7-30) mg/dL Creatinine 1.0 (0.5-1.5) mg/dL Estimated Creat Clear 39.59 Estimated GFR 58 ml/min Glucose 108 (60-115) mg/dL Lactate 1.0 (0.5-1.9) mmol/L Calcium 9.3 (8.4-10.6) mg/dL Total Bilirubin 0.4 (0.1-1.5) mg/dL Direct Bilirubin 0.1 (0.0-0.5) mg/dL AST 42 H (12-35) U/L ALT 26 (4-35) U/L Alkaline Phosphatase 99 (40-150) U/L C-Reactive Protein 0.8 1.8 H (0.5-1.0) mg/dL Total Protein 7.6 (6.0-8.3) g/dL Albumin 4.2 (3.3-5.0) g/dL Lipase 180 (23-300) U/L Urine Color Yellow (Yellow) Urine Appearance Clear (Clear) Urine pH 5.0 (5.0-8.5) Ur Specific [place] 1.025 (1.000-1.030) Urine Protein Negative (Negative) Urine Glucose (UA) Negative (Negative) Urine Ketones Negative (Negative) Urine Blood Negative (Negative) Urine Nitrite Negative (Negative) Urine Bilirubin Negative (Negative) Urine Urobilinogen 0.2 (0.2-1.0) Ur Leukocyte Esterase 1+ A (Negative) Urine RBC 0-2 (0-2) Urine WBC 5-10 A (0-5) Urine WBC Clumps Few A (None) Ur Squamous Epith Cells Few (None-Few) Urine Bacteria Few A (None) Hyaline Casts Few (None-Few) <Tala Bell MD - Last Filed: 05/29/23 10:51> Lab Results 05/24/23 05/24/23 05/24/23 Range/Units 16:30 16:45 23:54 WBC 7.49 7.71 (4.50-11.00) K/uL RBC 3.72 L 3.53 L (4.00-5.20) m/uL Hgb 11.3 L 11.0 L (12.0-16.0) gm/dL Hct 35.3 33.7 (33.0-51.0) % MCV 95 96 (80-100) fL MCH 30 31 (26-34) pg MCHC 32 33 (32-36) gm/dL RDW Coeff of [place]ed[place] 14.8 14.8 (11.5-15.5) % Plt Count 293 262 (140-440) K/uL Neut % (Auto) 73.3 H 70.2 (42.0-72.0) % Lymph % (Auto) 18.6 L 20.2 (20-44) % [place] % (Auto) 7.2 8.4 (0.0-11.0) % Eos % (Auto) 0.3 0.3 (0.0-7.0) % Baso % (Auto) 0.5 0.3 (0.0-3.0) % Neut # (Auto) 5.50 5.41 (1.7-7.0) K/uL Lymph # (Auto) 1.40 1.56 (0.90-2.90) K/uL [place] # (Auto) 0.50 0.60 (0.00-0.90) K/UL Eos # (Auto) 0.02 0.02 (0.00-0.50) K/uL Baso # (Auto) 0.04 0.02 (0.00-0.30) K/uL Abs Immat Gran (auto) 0.01 0.05 (0.00-0.30) K/uL Imm/Tot Granulo (auto) 0.1 0.6 % Sodium 136 (135-149) mmol/L Potassium 4.4 (3.6-5.1) mmol/L Chloride 105 (96-114) mmol/L Carbon Dioxide 23 (20-32) mmol/L Anion Gap 8 (7-15) mEq/L BUN 16 (7-30) mg/dL Creatinine 1.0 (0.5-1.5) mg/dL Estimated Creat Clear 39.59 Estimated GFR 58 ml/min Glucose 108 (60-115) mg/dL Lactate 1.0 (0.5-1.9) mmol/L Calcium 9.3 (8.4-10.6) mg/dL Total Bilirubin 0.4 (0.1-1.5) mg/dL Direct Bilirubin 0.1 (0.0-0.5) mg/dL AST 42 H (12-35) U/L ALT 26 (4-35) U/L Alkaline Phosphatase 99 (40-150) U/L C-Reactive Protein 0.8 1.8 H (0.5-1.0) mg/dL Total Protein 7.6 (6.0-8.3) g/dL Albumin 4.2 (3.3-5.0) g/dL Lipase 180 (23-300) U/L Urine Color Yellow (Yellow) Urine Appearance Clear (Clear) Urine pH 5.0 (5.0-8.5) Ur Specific [place] 1.025 (1.000-1.030) Urine Protein Negative (Negative) Urine Glucose (UA) Negative (Negative) Urine Ketones Negative (Negative) Urine Blood Negative (Negative) Urine Nitrite Negative (Negative) Urine Bilirubin Negative (Negative) Urine Urobilinogen 0.2 (0.2-1.0) Ur Leukocyte Esterase 1+ A (Negative) Urine RBC 0-2 (0-2) Urine WBC 5-10 A (0-5) Urine WBC Clumps Few A (None) Ur Squamous Epith Cells Few (None-Few) Urine Bacteria Few A (None) Hyaline Casts Few (None-Few) <Tiara Yousif MD - Last Filed: 05/25/23 23:52> Lab Results 05/24/23 05/24/23 05/24/23 Range/Units 16:30 16:45 23:54 WBC 7.49 7.71 (4.50-11.00) K/uL RBC 3.72 L 3.53 L (4.00-5.20) m/uL Hgb 11.3 L 11.0 L (12.0-16.0) gm/dL Hct 35.3 33.7 (33.0-51.0) % MCV 95 96 (80-100) fL MCH 30 31 (26-34) pg MCHC 32 33 (32-36) gm/dL RDW Coeff of [place]ed[place] 14.8 14.8 (11.5-15.5) % Plt Count 293 262 (140-440) K/uL Neut % (Auto) 73.3 H 70.2 (42.0-72.0) % Lymph % (Auto) 18.6 L 20.2 (20-44) % [place] % (Auto) 7.2 8.4 (0.0-11.0) % Eos % (Auto) 0.3 0.3 (0.0-7.0) % Baso % (Auto) 0.5 0.3 (0.0-3.0) % Neut # (Auto) 5.50 5.41 (1.7-7.0) K/uL Lymph # (Auto) 1.40 1.56 (0.90-2.90) K/uL [place] # (Auto) 0.50 0.60 (0.00-0.90) K/UL Eos # (Auto) 0.02 0.02 (0.00-0.50) K/uL Baso # (Auto) 0.04 0.02 (0.00-0.30) K/uL Abs Immat Gran (auto) 0.01 0.05 (0.00-0.30) K/uL Imm/Tot Granulo (auto) 0.1 0.6 % Sodium 136 (135-149) mmol/L Potassium 4.4 (3.6-5.1) mmol/L Chloride 105 (96-114) mmol/L Carbon Dioxide 23 (20-32) mmol/L Anion Gap 8 (7-15) mEq/L BUN 16 (7-30) mg/dL Creatinine 1.0 (0.5-1.5) mg/dL Estimated Creat Clear 39.59 Estimated GFR 58 ml/min Glucose 108 (60-115) mg/dL Lactate 1.0 (0.5-1.9) mmol/L Calcium 9.3 (8.4-10.6) mg/dL Total Bilirubin 0.4 (0.1-1.5) mg/dL Direct Bilirubin 0.1 (0.0-0.5) mg/dL AST 42 H (12-35) U/L ALT 26 (4-35) U/L Alkaline Phosphatase 99 (40-150) U/L C-Reactive Protein 0.8 1.8 H (0.5-1.0) mg/dL Total Protein 7.6 (6.0-8.3) g/dL Albumin 4.2 (3.3-5.0) g/dL Lipase 180 (23-300) U/L Urine Color Yellow (Yellow) Urine Appearance Clear (Clear) Urine pH 5.0 (5.0-8.5) Ur Specific [place] 1.025 (1.000-1.030) Urine Protein Negative (Negative) Urine Glucose (UA) Negative (Negative) Urine Ketones Negative (Negative) Urine Blood Negative (Negative) Urine Nitrite Negative (Negative) Urine Bilirubin Negative (Negative) Urine Urobilinogen 0.2 (0.2-1.0) Ur Leukocyte Esterase 1+ A (Negative) Urine RBC 0-2 (0-2) Urine WBC 5-10 A (0-5) Urine WBC Clumps Few A (None) Ur Squamous Epith Cells Few (None-Few) Urine Bacteria Few A (None) Hyaline Casts Few (None-Few) <Prabha Michaud MD - Last Filed: 05/25/23 09:30> Imaging Data CT scan - abdomen: Attestation: I have reviewed the pertinent imaging results. <Tala Bell MD - Last Filed: 05/29/23 10:51> Radiologist's impression: CT abdomen and pelvis acquired with 100 cc Isovue 370 IV contrast. COMPARISON: None. FINDINGS: Lower chest: The right lower lobe calcified granuloma. Liver: Unremarkable. Normal in size and attenuation. No suspicious masses. Gallbladder and bile ducts: Gallbladder is absent. Mild intra and extrahepatic ductal dilatation likely related to reservoir effect. Pancreas: Unremarkable. No mass or inflammation. Spleen: Unremarkable. Normal in size. No masses. Adrenal glands: Unremarkable. No nodules. Kidneys: Unremarkable. No suspicious masses, stones, or hydronephrosis. GI tract: Status post gastric bypass. Postsurgical changes from colectomy. Right lower quadrant ileostomy. There is abrupt narrowing of the small bowel at the right abdominal wall at the site of the ileostomy. Proximally there is dilated loops of bowel with fecalization of the bowel content consistent with delayed transit. Bowel loops measure up to 4.7 centimeters in diameter. Gradual tapering to normal diameter proximally. Vasculature: Abdominal aorta is normal in caliber. Mesenteric arteries are patent. Lymph nodes: No lymphadenopathy. Peritoneum/Abdominal Wall: mild mesenteric edema is noted. Midline surgical scar. Ventral abdominal fat and bowel containing hernia. Small parastomal fat containing hernia. No intra-abdominal free air or free fluid. The Pelvis: Unremarkable. Bones: Scoliosis. Diffuse degenerative changes. IMPRESSION: 1. small-bowel obstruction with transition point at the right lower quadrant abdominal wall at the site of the ileostomy. There is fecalization of the bowel contents proximal to this with mild dilation of the small bowel loops consistent with delayed transit. 2. Postsurgical changes from gastric bypass and colectomy. <Tala Bell MD - Last Filed: 05/29/23 10:51> Discharge Plan Discharge Patient Disposition: Xfer Other <Tala Bell MD - Last Filed: 05/29/23 10:51> Discharge Location: [facility] <Tala Bell MD - Last Filed: 05/29/23 10:51> Prescriptions: No Action bupropion HCl 100 mg tablet 100 mg PO BID Qty: 180 3RF gabapentin 600 mg tablet 900 mg PO TID Qty: 405 3RF hydrocortisone 2.5 % cream 1 applic topical BID PRN (Reason: rash) Qty: 28 3RF levothyroxine 137 mcg tablet 137 mcg PO DAILY Qty: 90 3RF tramadol 50 mg tablet 50 mg PO QAM Qty: 90 1RF acetaminophen 500 mg tablet 1,000 mg PO 3XD cetirizine 5 mg tablet 5 mg PO Q48H Rx Instructions: EVERY OTHER DAY AT HS cholecalciferol (vitamin D3) 50 mcg (2,000 unit) capsule 50 mcg PO DAILY@1200 losartan 50 mg tablet 50 mg PO HS atorvastatin 20 mg tablet 20 mg PO HS furosemide 20 mg tablet 20 mg PO MOFR Rx Instructions: MON AND FRI Centrum Adult 50 Plus 80 mcg tablet,chewable 2 tab PO DAILY@1200 venlafaxine 75 mg tablet 75 mg PO TID cyanocobalamin (vitamin B-12) 1,000 mcg tablet 2,000 mcg PO DAILY@1200 melatonin 3 mg tablet 4.5 mg PO HS omeprazole 40 mg capsule,delayed release(DR/EC) 40 mg PO DAILY docusate sodium 100 mg capsule 100 mg PO HS fluticasone propionate 50 mcg/actuation spray,suspension 2 spray INTRANASAL DAILY PRN diclofenac sodium 1 % gel 4 g topical QID PRN (Reason: pain) <Tala Bell MD - Last Filed: 05/29/23 10:51> Stand Alone Forms: MyHealth Info Instructions <Tala Bell MD - Last Filed: 05/29/23 10:51>
--- OUTSIDE RECORDS SUMMARY | 2023-05-24 16:32 | XMS_ITS | Encounter Summary ---
Author Name Unknown Organization [place] Address [address] [place] [address] Care Team Providers Care Traffic Agent Name Role Phone Juan Rojas MD Primary Care Provider Reason for Visit * Reason Onset Date Comments Post-Op - General Surgery 04/04/2023 Can [facility] remove miguelito? Encounter Details Date Type Department Care Team (Late st Contact Info) Description 04/04/2023 Telephone [facility] [place] [address] [place] [address] Cody Villarreal MD [address] [place] [address] Post-Op - General Surgery (Can home health remove miguelito? ) Social History Tobacco Use Types Packs/Day Years Used Date Smoking Tobacco: Never Alcohol Use Standard Drinks/Week Comments Yes 0 (1 standard drink = 0.6 oz pur e alcohol) rare Adolescent Education Answer Date Record ed Getting School Help Needed Not on file 03/22 Sex and Gender Information Value Date Recorded Sex Assigned at Not on file Gender Identity Not on file Sexual Orientation Not on file documented as of this encounter Miscellaneous Notes * Telephone Encounter - Katherin Alan RN - 04/04/2023 10:58 AM CST Called Radha back with PA recommendations: Ok for home care to remove miguelito on 04/06. Replace with full length 1/2 steri- strips; leave in place for one week. THOMAS Mcfarland verbalizes understanding and agrees to the play. She/patient will call PRN Katherin Alna, RN-BSN ING TECHNICIAN * Telephone Encounter - Carol Acuna - 04/04/2023 9:20 AM CST Name of caller: Patient and Radha Home care Nurse Reason for Call: Wants to get an order for home care to remove miguelito Surgeon: Dr. Villarreal Recent Surgery: Yes. If yes, when & what type: Diagnostic laparoscopy, converted to open laparostomy, extensive lysis of adhesions, removal of small bowel phytobezoar through small bowel enterotomy, repair of small bowel enterotomy, revision of ileostomy fascial exit, peritoneal lavage, 03/23 Best phone number to reach pt at is: [phone] Ok to leave a message with medical info? Yes. Pharmacy preferred (if calling for a refill): N/A ING TECHNICIAN documented in this encounter Plan of Treatment Not on file documented as of this encounter Visit Diagnoses Not on filedocumented in this encounter Care Teams Traffic Agent Relationship Specialty Start Date End Date Juan Rojas MD [facility] - [address] [facility] [place] [id number] PCP - General Family Medicine 03/23/23 documented as of this encounter
--- OUTSIDE RECORDS SUMMARY | 2023-05-24 16:32 | XMS_ITS | Encounter Summary ---
Author Name Unknown Organization [place] Address [address] [facility] [place] [address] Care Team Providers Care Fitness Attendant Name Role Phone Juan Rojas MD Primary Care Provider [phone] Reason for Visit * Reason Onset Date Comments Post-Op - General Surgery 03/28/2023 Need w ound vac supplies and orders. Encounter Details Date Type Department Care Team (Late st Contact Info) Description 03/28/2023 Telephone [facility] [address] [facility] [place] [address] Cody Villarreal MD [address] [place] [address] Post-Op - General Surgery (Need wound vac supplies and orders. ) Social History Tobacco Use Types Packs/Day [...] Telephone Encounter - Katherin Alan RN - 03/28/2023 10:59 AM CST Called Jyoti to discuss. Per AVS and chart note from Daisy Pedraza PA-C: Wound care and dressings Instructions to care for your wound at home: Leave Provena wound vac (purple dressing) in place until Sat. Then gently removed entire dressing. Cover you staple line incision with gauze and tape if you haveany drainage after removal. If you need to replace your Ostomy bag before Sat, you may need to also remove the Provena vac as well. Reiterated that the current provena vac should stay in place until Monday, unless the bag needs to be changed (full). Remove on Monday and then continue to cover incision with gauze and tape, if still draining. Call PRN She verbalized understanding of this and agree to call PRN Katherin Aaln RN-BSN ETING INSTRUCTOR * Telephone Encounter - Carol Acuna - 03/28/2023 9:09 AM CST Name of caller: caregiver, Jyoti [facility] home care Reason for Call: Need orders for care of wound vac and supplies. I will fax hospital records per her request. Surgeon: Dr. Villarreal Recent Surgery: Yes. If yes, when & what type: Diagnostic laparoscopy, converted to open laparostomy, extensive lysis of adhesions, removal of small bowel phytobezoar through small bowel enterotomy, repair of small bowel enterotomy, revision of ileostomy fascial exit, peritoneal lavage 03/23/23 Best phone number to reach pt at is: [phone] Ok to leave a message with medical info? Yes. Pharmacy preferred (if calling for a refill): [facility] mail order. ETING INSTRUCTOR documented in this encounter Plan of Treatment Not on file documented as of this encounter Visit Diagnoses Not on filedocumented in this encounter Care Teams Fitness Attendant Relationship Specialty Start Date End Date Juan Rojas MD [facility] [place] [id number] [address] [place] [id number] PCP - General Family Medicine 03/23/23 documented as of this encounter
--- OUTSIDE RECORDS SUMMARY | 2023-05-24 16:32 | XMS_ITS | Referral Summary ---
Author Name Unknown Organization [facility] Address [address] [place] [address] Care Team Providers Care Family Nurse Practitioner Name Role Phone Juan Rojas MD Primary Care Provider [phone] Encounters Date Type Department Care Team Description 04/10/2023 Telephone [facility] [address] [place] [phone] Daisy Pedraza PA-C 04/04/2023 Telephone [facility] [address] [place] [phone] Cody Villarreal MD Post-Op - General Surgery (Can home health remove miguelito? ) 03/28/2023 Telephone [facility] [address] [place] [phone] Cody Villarreal MD Post-Op - General Surgery (Need wound vac supplies and orders. ) 03/22/2023 3:53 PM DIRECTOR OF MARKETING OPERATIONS - 03/27/2023 1:40 PM DIRECTOR OF MARKETING OPERATIONS Hospital Encounter [facility] Ortho Spine [address] [place] [phone] Fransisco Licea MD Dorn, Karen T, MD SBO (small bowel obstruction) (H) (Primary Dx) Discharge Disposition: Home or Self Care 03/23/2023 6:26 PM DIRECTOR OF MARKETING OPERATIONS Anesthesia Event [facility] PeriOp [facility] [address] [place] [phone] Richy Scott MD Osborn, Ronald D, DO 03/23/2023 5:30 PM DIRECTOR OF MARKETING OPERATIONS - 03/23/2023 7:25 PM DIRECTOR OF MARKETING OPERATIONS Surgery [facility] [address] [place] [address] Cody Villarreal MD LAPAROSCOPY, DIAGNOSTIC, BY GENERAL SURGERY, convert to open, lysis of adhesions, partial mesh explantation, repair of small bowel enterotomy 03/22/2023 Telephone [facility] - General Medicine & Pediatrics [address] [place] [phone] Louise Younger PA-C from Last 3 Months Allergies Active Allergy Reactions Criticality Noted Date Comments Droperidol Hallucination 03/22/2023 Metoclopramide Hallucination 03/22/2023 Sulfa Antibiotics Rash Low 03/22/2023 Patient experienced a rash while using Sulfa-cream product 5 or 6 years ago Medications Medication Sig Dispensed Refills Start Date End Date Status atorvastatin (LIPITOR) 20 MG tablet Take 20 mg by mouth daily 0 Active buPROPion (WELLBUTRIN) 100 MG tablet Take 100 mg by mouth 2 times daily 0 Active cetirizine (ZYRTEC) 10 MG tablet Take 10 mg by mouth daily 0 Active levothyroxine (SYNTHROID/LEVOTHROI D) 137 MCG tablet Take 137 mcg by mouth daily 0 Active gabapentin (NEURONTIN) 300 MG capsule Take 900 mg by mouth 3 times daily 0 Active losartan (COZAAR) 25 MG tablet Take 50 mg by mouth daily 0 Active omeprazole (PRILOSEC) [address] capsule Take 40 mg by mouth daily 0 Active venlafaxine (EFFEXOR) 75 MG tablet Take 75 mg by mouth 3 times daily 0 Active cyanocobalamin (VITAMIN B-12) 1000 MCG tablet Take 2,000 mcg by mouth daily 0 Active vitamin D3 (CHOLECALCIFEROL) 50 mcg (2000 units) tablet Take 1 tablet by mouth daily 0 Active traMADol (ULTRAM) 25 mg TABS half-tab Take 25 mg by mouth every 6 hours as needed for moderate to severe pain 0 Active hydrochlorothiazide (HYDRODIURIL) 12.5 MG tablet Take 12.5 mg by mouth daily 0 Active multivitamin (CENTRUM SILVER) tablet Take 2 tablets by mouth daily 0 Active acetaminophen (TYLENOL) 500 MG tablet Take 500 mg by mouth every 8 hours as needed for mild pain 0 Active oxyCODONE (ROXICODONE) 5 MG tabletIndications:SB O (small bowel obstruction) (H) Take 0.5-1 tablets (2.5-5 mg) by mouth every 4 hours as needed for severe pain 10 tablet 0 03/27/2023 Active Active Problems Problem Noted Date Diagnosed Date Acute kidney failure, unspecified 03/25/2023 SBO (small bowel obstruction) 03/22/2023 Social History Tobacco Use Types Packs/Day Years Used Date Smoking Tobacco: Never Tobacco Cessation:Counseling Given: Not Answered Alcohol Use Standard Drinks/Week Comments Yes 0 (1 standard drink = 0.6 oz pur e alcohol) rare Adolescent Education Answer Date Record ed Getting School Help Needed Not on file 03/22 Sex and Gender Information Value Date Recorded Sex Assigned at Not on file Gender Identity Not on file Sexual Orientation Not on file Last Filed Vital Signs Vital Sign Reading Time Taken Comments Blood Pressure 155/66 03/27/2023 8:11 AM DIRECTOR OF MARKETING OPERATIONS Pulse 90 03/27/2023 8:11 AM DIRECTOR OF MARKETING OPERATIONS Temperature 36.5 ??C (97.7 ??F) 03/27/2023 8:11 AM CS T Respiratory Rate 18 03/27/2023 8:11 AM DIRECTOR OF MARKETING OPERATIONS Oxygen Saturation 93% 03/27/2023 8:11 AM DIRECTOR OF MARKETING OPERATIONS Inhaled Oxygen Concentration - - Weight 98.3 kg (216 lb 11.4 oz) 03/22/2023 3:57 PM DIRECTOR OF MARKETING OPERATIONS Height 160 cm (5' 3) 03/22/2023 5:00 PM DIRECTOR OF MARKETING OPERATIONS Body Mass Index 38.39 03/22/2023 3:57 PM DIRECTOR OF MARKETING OPERATIONS Plan of Treatment Not on file Procedures Procedure Name Priority Date/Time Associated Diagnosis Comments CBC WITH PLATELETS & DIFFERENTIAL Routine 03/27/2023 6:31 AM DIRECTOR OF MARKETING OPERATIONS RBC AND PLATELET MORPHOLOGY Routine 03/27/2023 6:31 AM DIRECTOR OF MARKETING OPERATIONS CBC WITH PLATELETS AND DIFFERENTIAL Routine 03/27/2023 6:31 AM DIRECTOR OF MARKETING OPERATIONS BASIC METABOLIC PANEL Routine 03/27/2023 6:31 AM DIRECTOR OF MARKETING OPERATIONS MAGNESIUM Routine 03/27/2023 6:31 AM DIRECTOR OF MARKETING OPERATIONS CBC WITH PLATELETS & DIFFERENTIAL Routine 03/26/2023 6:54 AM DIRECTOR OF MARKETING OPERATIONS CBC WITH PLATELETS AND DIFFERENTIAL Routine 03/26/2023 6:54 AM DIRECTOR OF MARKETING OPERATIONS MAGNESIUM Routine 03/26/2023 6:54 AM DIRECTOR OF MARKETING OPERATIONS BASIC METABOLIC PANEL Routine 03/26/2023 6:54 AM DIRECTOR OF MARKETING OPERATIONS GLUCOSE BY METER Routine 03/25/2023 4:56 PM DIRECTOR OF MARKETING OPERATIONS US RENAL COMPLETE NON-VASCULAR Routine 03/25/2023 11:14 AM DIRECTOR OF MARKETING OPERATIONS CBC WITH PLATELETS & DIFFERENTIAL Routine 03/25/2023 6:54 AM DIRECTOR OF MARKETING OPERATIONS CBC WITH PLATELETS AND DIFFERENTIAL Routine 03/25/2023 6:54 AM DIRECTOR OF MARKETING OPERATIONS BASIC METABOLIC PANEL Routine 03/25/2023 6:54 AM DIRECTOR OF MARKETING OPERATIONS MAGNESIUM Routine 03/25/2023 6:54 AM DIRECTOR OF MARKETING OPERATIONS EKG 12-LEAD, TRACING ONLY Routine 03/24/2023 3:35 PM DIRECTOR OF MARKETING OPERATIONS CBC WITH PLATELETS & DIFFERENTIAL Routine 03/24/2023 7:04 AM DIRECTOR OF MARKETING OPERATIONS CBC WITH PLATELETS AND DIFFERENTIAL Routine 03/24/2023 7:04 AM DIRECTOR OF MARKETING OPERATIONS PHOSPHORUS Routine 03/24/2023 7:04 AM DIRECTOR OF MARKETING OPERATIONS HEPATIC FUNCTION PANEL Routine 7:04 AM DIRECTOR OF MARKETING OPERATIONS BASIC METABOLIC PANEL Routine 03/24/2023 7:04 AM DIRECTOR OF MARKETING OPERATIONS MAGNESIUM Routine 03/24/2023 7:04 AM DIRECTOR OF MARKETING OPERATIONS XR ABDOMEN PORT 1 VIEW Routine 12:29 AM DIRECTOR OF MARKETING OPERATIONS ANE AIRWAY ETT PERFORMABLE Routine 03/23/2023 6:36 PM DIRECTOR OF MARKETING OPERATIONS LAPAROSCOPY, DIAGNOSTIC, BY GENERAL SURGERY 03/23/2023 6:19 PM DIRECTOR OF MARKETING OPERATIONS SBO (small bowel obstruction) (H) POTASSIUM Routine 03/23/2023 6:19 AM DIRECTOR OF MARKETING OPERATIONS MAGNESIUM Routine 03/23/2023 6:19 AM DIRECTOR OF MARKETING OPERATIONS CBC WITH PLATELETS Routine 03/23/2023 6: 19 AM DIRECTOR OF MARKETING OPERATIONS COMPREHENSIVE METABOLIC PANEL Routine 03/23/2023 6:19 AM DIRECTOR OF MARKETING OPERATIONS LACTIC ACID WHOLE BLOOD STAT 03/22/2023 5:05 PM DIRECTOR OF MARKETING OPERATIONS CBC WITH PLATELETS STAT 03/22/2023 5: 05 PM DIRECTOR OF MARKETING OPERATIONS BASIC METABOLIC PANEL STAT 03/22/2023 5:05 PM DIRECTOR OF MARKETING OPERATIONS LAB RESULT - HIM SCAN 03/22/2023 12:00 AM DIRECTOR OF MARKETING OPERATIONS CT IMAGING - HIM SCAN 03/22/2023 12:00 AM DIRECTOR OF MARKETING OPERATIONS from Last 3 Months Results * (ABNORMAL) RBC and Platelet Morphology (03/27/2023 6:31 AM DIRECTOR OF MARKETING OPERATIONS) Platelet Assessment Platelets Clumped(A) Automated Count Confirmed. Platelet morphology is normal. 03/27/2023 7:27 AM DIRECTOR OF MARKETING OPERATIONS [facility] Acanthocytes 03/27/2023 7:27 AM DIRECTOR OF MARKETING OPERATIONS [facility] Merrill Rods 03/27/2023 7:27 AM DIRECTOR OF MARKETING OPERATIONS [facility] Basophilic Stippling 03/27/2023 7:27 AM DIRECTOR OF MARKETING OPERATIONS [facility] Bite Cells 03/27/2023 7:27 AM DIRECTOR OF MARKETING OPERATIONS [facility] Blister Cells 03/27/2023 7:27 AM DIRECTOR OF MARKETING OPERATIONS [facility] Raya Cells 03/27/2023 7:27 AM DIRECTOR OF MARKETING OPERATIONS [facility] Elliptocytes 03/27/2023 7:27 AM DIRECTOR OF MARKETING OPERATIONS [facility] Hgb C Crystals 03/27/2023 7:27 AM DIRECTOR OF MARKETING OPERATIONS [facility] Bagley-Manti Bodies 03/27/2023 7:27 AM DIRECTOR OF MARKETING OPERATIONS [facility] Hypersegmented Neutrophils 03/27/2023 7:27 AM DIRECTOR OF MARKETING OPERATIONS [facility] Polychromasia 03/27/2023 7:27 AM DIRECTOR OF MARKETING OPERATIONS [facility] RBC agglutination 023 7:27 AM DIRECTOR OF MARKETING OPERATIONS [facility] RBC Fragments 03/27/2023 7:27 AM DIRECTOR OF MARKETING OPERATIONS [facility] Reactive Lymphocytes 03/27/2023 7:27 AM DIRECTOR OF MARKETING OPERATIONS [facility] Rouleaux 03/27/2023 7:27 AM DIRECTOR OF MARKETING OPERATIONS [facility] Sickle Cells 03/27/2023 7:27 AM DIRECTOR OF MARKETING OPERATIONS [facility] Smudge Cells 03/27/2023 7:27 AM DIRECTOR OF MARKETING OPERATIONS [facility] Spherocytes 03/27/2023 7:27 AM DIRECTOR OF MARKETING OPERATIONS [facility] Stomatocytes 03/27/2023 7:27 AM DIRECTOR OF MARKETING OPERATIONS [facility] Target Cells 03/27/2023 7:27 AM DIRECTOR OF MARKETING OPERATIONS [facility] Teardrop Cells 03/27/2023 7:27 AM DIRECTOR OF MARKETING OPERATIONS [facility] Toxic Neutrophils 023 7:27 AM DIRECTOR OF MARKETING OPERATIONS [facility] RBC Morphology Confirmed RBC Indices 03/27/2023 7:27 AM DIRECTOR OF MARKETING OPERATIONS [facility] Blood STRUCTURE OF RIGHT UPPER LIMB / Unknown Venipuncture / Unknown 03/27/2023 6:31 AM DIRECTOR OF MARKETING OPERATIONS 03/27/2023 6:39 AM DIRECTOR OF MARKETING OPERATIONS Bernice Stearns MD LAB - BLOOD ORDER MILE [facility] Acute Care Lab [address] Lab (1st floor, no room number) [place] [address] [phone] * (ABNORMAL) CBC with platelets and differential (03/27/2023 6:31 AM DIRECTOR OF MARKETING OPERATIONS) Only the most recent of4 resultswithin the time period is included. WBC Count 6.9 4.0 - 11.0 10e3/uL 03/27/2023 7:29 AM DIRECTOR OF MARKETING OPERATIONS [facility] RBC Count 2.95(L) 3.80 - 5.20 10e6/uL 03/27/2023 7:29 AM DIRECTOR OF MARKETING OPERATIONS [facility] Hemoglobin 9.2(L) 11.7 - 15.7 g/dL 03/27/2023 7:29 AM DIRECTOR OF MARKETING OPERATIONS [facility] Hematocrit 29.6(L) 35.0 - 47.0 % 03/27/2023 7:29 AM DIRECTOR OF MARKETING OPERATIONS [facility] MCV 100 78 - 100 fL 03/27/2023 7:29 AM DIRECTOR OF MARKETING OPERATIONS [facility] MCH 31.2 26.5 - 33.0 pg 03/27/2023 7:29 AM DIRECTOR OF MARKETING OPERATIONS [facility] MCHC 31.1(L) 31.5 - 36.5 g/dL 03/27/2023 7:29 AM DIRECTOR OF MARKETING OPERATIONS [facility] RDW 13.9 10.0 - 15.0 % 03/27/2023 7:29 AM DIRECTOR OF MARKETING OPERATIONS LABORATORY Platelet Count 03/27/2023 7:29 AM DIRECTOR OF MARKETING OPERATIONS [facility] Comment:Platelets Clumped-Pl atelet Count Not Available % Neutrophils 62 % 03/27/2023 7:29 AM DIRECTOR OF MARKETING OPERATIONS [facility] % Lymphocytes 21 % 03/27/2023 7:29 AM DIRECTOR OF MARKETING OPERATIONS [facility] % Monocytes 14 % 03/27/2023 7:29 AM DIRECTOR OF MARKETING OPERATIONS LABORATORY % Eosinophils 1 % 03/27/2023 7:29 AM DIRECTOR OF MARKETING OPERATIONS LABORATORY % Basophils 1 % 03/27/2023 7:29 AM DIRECTOR OF MARKETING OPERATIONS [facility] % Immature Granulocytes 1 % 03/27/2023 7:29 AM DIRECTOR OF MARKETING OPERATIONS LABORATORY NRBCs per 100 WBC 0 <1 /100 023 7:29 AM DIRECTOR OF MARKETING OPERATIONS LABORATORY Absolute Neutrophils 4.4 1.6 - 8.3 10e3/uL 03/27/2023 7:29 AM DIRECTOR OF MARKETING OPERATIONS LABORATORY Absolute Lymphocytes 1.4 0.8 - 5.3 10e3/uL 03/27/2023 7:29 AM DIRECTOR OF MARKETING OPERATIONS LABORATORY Absolute Monocytes 0.9 0.0 - 1.3 10e3/uL 03/27/2023 7:29 AM DIRECTOR OF MARKETING OPERATIONS LABORATORY Absolute Eosinophils 0.0 0.0 - 0.7 10e3/uL 03/27/2023 7:29 AM DIRECTOR OF MARKETING OPERATIONS LABORATORY Absolute Basophils 0.0 0.0 - 0.2 10e3/uL 03/27/2023 7:29 AM [facility] Absolute Immature Granulocytes 0.1 <=0.4 10e3/uL 03/27/2023 7:29 AM [facility] Absolute NRBCs 0.0 10e3/uL 03/27/2023 7:29 AM [facility] Blood STRUCTURE OF RIGHT UPPER LIMB / Unknown Venipuncture / Unknown 03/27/2023 6:31 AM DIRECTOR OF MARKETING OPERATIONS 03/27/2023 6:39 AM DIRECTOR OF MARKETING OPERATIONS Bernice Stearns MD LAB - BLOOD ORDER MILE LAB[facility] Acute Care Lab [address] Lab (1st floor, no room number) [place] [address], [facility] [phone] * (ABNORMAL) Magnesium (03/27/2023 6:31 AM DIRECTOR OF MARKETING OPERATIONS) Only the most recent of5 resultswithin the time period is included. Magnesium 1.6(L) 1.7 - 2.3 mg/dL 03/27/2023 6:59 AM DIRECTOR OF MARKETING OPERATIONS LABORATORY Blood STRUCTURE OF RIGHT UPPER LIMB / Unknown Venipuncture / Unknown 03/27/2023 6:31 AM DIRECTOR OF MARKETING OPERATIONS 03/27/2023 6:39 AM DIRECTOR OF MARKETING OPERATIONS Fransisco Licea MD LAB - BLOOD ORDERA BLES Performing Organization Address City/[facility]/ZIP Co de Phone Number [facility] Acute Care Lab [address] Lab (1st floor, no room number) [place] [address], [facility] [phone] * (ABNORMAL) Basic metabolic panel (03/27/2023 6:31 AM DIRECTOR OF MARKETING OPERATIONS) Only the most recent of5 resultswithin the time period is included. Sodium 134(L) 135 - 145 mmol/L 03/27/2023 6:59 AM DIRECTOR OF MARKETING OPERATIONS LABORATORY Comment:Reference intervals for this test were updated on 01/24/2023 to more accurately reflect our healthy population. There may be differences in the flagging of prior results with similar values performed with this method. Interpretation of those prior results can be made in the context of the updated reference intervals. Potassium 4.1 3.4 - 5.3 mmol/L 03/27/2023 6:59 AM DIRECTOR OF MARKETING OPERATIONS LABORATORY Chloride 101 98 - 107 mmol/L 03/27/2023 6:59 AM DIRECTOR OF MARKETING OPERATIONS LABORATORY Carbon Dioxide (CO2) 24 22 - 29 mmol/L 03/27/2023 6:59 AM [facility] Anion Gap 9 7 - 15 mmol/L 03/27/2023 6:59 AM [facility] Urea Nitrogen 15.5 8.0 - 23.0 mg/dL 03/27/2023 6:59 AM [facility] Creatinine 0.84 0.51 - 0.95 mg/dL 03/27/2023 6:59 AM [facility] GFR Estimate 72 >60 mL/min/1. 73m2 03/27/2023 6:59 AM [facility] Calcium 8.5(L) 8.8 - 10.2 mg/dL 03/27/2023 6:59 AM [facility] Glucose 102(H) 70 - 99 mg/dL 03/27/2023 6:59 AM [facility] Blood STRUCTURE OF RIGHT UPPER LIMB / Unknown Venipuncture / Unknown 03/27/2023 6:31 AM DIRECTOR OF MARKETING OPERATIONS 03/27/2023 6:39 AM DIRECTOR OF MARKETING OPERATIONS Bernice Stearns MD LAB - BLOOD ORDER MILE [facility] Care [facility] [address] Lab (1st floor, no room number) [place] [address], [facility] [phone] * (ABNORMAL) Glucose by meter (03/25/2023 4:56 PM DIRECTOR OF MARKETING OPERATIONS) [facility] GLUCOSE BY METER POCT 119(H) 70 - 99 mg/dL 03/25/2023 5:04 PM DIRECTOR OF MARKETING OPERATIONS LABORATORY POC Blood, Capillary BLOOD SPECIMEN / Unknown 03/25/2023 4:56 PM DIRECTOR OF MARKETING OPERATIONS 03/25/2023 5:04 PM DIRECTOR OF MARKETING OPERATIONS Fransisco Licea MD LAB - BEAKER POCT [facility] Acute Care Lab [address] Lab (1st floor, no room number) [place] [address], [place] [phone] * US Renal Complete Non-Vascular (03/25/2023 11:14 AM DIRECTOR OF MARKETING OPERATIONS) Anatomical Region Laterality Modality Abdomen/Pelvis Ultrasound 03/25/2023 11:1 4 AM DIRECTOR OF MARKETING OPERATIONS Impressions 03/25/2023 3:04 PM DIRECTOR OF MARKETING OPERATIONS IMPRESSION: 1. ??Normal kidney ultrasound. Narrative 03/25/2023 3:04 PM DIRECTOR OF MARKETING OPERATIONS EXAM: US RENAL COMPLETE NON-VASCULAR LOCATION: [facility] DATE: 03/25/2023 INDICATION: BRICE post op abdominal surgery, rule out obstruction COMPARISON: None. TECHNIQUE: Routine Bilateral Renal and Bladder Ultrasound. FINDINGS: RIGHT KIDNEY: 10.2 cm. Normal without hydronephrosis or masses. LEFT KIDNEY: 11.1 cm. Normal without hydronephrosis or masses. BLADDER: Normal. Procedure Note Kirby Diamond MD - 03/25/2023 EXAM: US RENAL COMPLETE NON-VASCULAR LOCATION: [facility] DATE: 03/25/2023 INDICATION: BRICE post op abdominal surgery, rule out obstruction COMPARISON: None. TECHNIQUE: Routine Bilateral Renal and Bladder Ultrasound. FINDINGS: RIGHT KIDNEY: 10.2 cm. Normal without hydronephrosis or masses. LEFT KIDNEY: 11.1 cm. Normal without hydronephrosis or masses. BLADDER: Normal. IMPRESSION: 1. Normal kidney ultrasound. Bernice Stearns MD IMG US ORDERABLES * EKG 12-lead, tracing only (03/24/2023 3:35 PM DIRECTOR OF MARKETING OPERATIONS) Systolic Blood Pressure mmHg RADIOLOGY RESULTS Diastolic Blood Pressure mmHg RADIOLOGY RESULTS Ventricular Rate 102 BPM RAD IOLOGY RESULTS Atrial Rate 102 BPM RADIOLOG Y RESULTS CO Interval 178 ms RADIOLOG Y RESULTS QRS Duration 88 ms RADIOLO GY RESULTS QT 354 ms RADIOLOGY RESULTS QTc 461 ms RADIOLOGY RESULTS P [place] 72 degrees RADIOLOGY RESULTS R AXIS 75 degrees RADIOLOGY RESULTS T [place] 74 degrees RADIOLOGY RESULTS Interpretation ECG Sinus tachycardia Possible Left atrial enlargement Cannot rule out Anterior infarct , age undetermined Abnormal ECG No previous ECGs available IVCD in inferior leads Confirmed by MD TERRI, MERRILL ([id number]), make up editor Tremaine Brown ([id number]) on 03/27/2023 11:15:18 AM RADIOLOGY RESULTS 03/24/2023 3:35 PM DIRECTOR OF MARKETING OPERATIONS 03/27/2023 11:15 AM DIRECTOR OF MARKETING OPERATIONS Bernice Stearns MD ECG ORDERABLES RADIOLOGY RESULTS * (ABNORMAL) Phosphorus (03/24/2023 7:04 AM DIRECTOR OF MARKETING OPERATIONS) Phosphorus 4.7(H) 2.5 - 4.5 mg/dL 03/24/2023 7:44 AM DIRECTOR OF MARKETING OPERATIONS [facility] Blood BLOOD SPECIMEN / Unknown Venipuncture / Unknown 03/24/2023 7:04 AM DIRECTOR OF MARKETING OPERATIONS 03/24/2023 7:22 AM DIRECTOR OF MARKETING OPERATIONS Cody Villarreal MD LAB - BLOOD ORDERABL ES [facility] Acute Care Lab [address] Lab (1st floor, no room number) [place] [address], [facility] [phone] * (ABNORMAL) Hepatic function panel (03/24/2023 7:04 AM DIRECTOR OF MARKETING OPERATIONS) Protein Total 6.1(L) 6.4 - 8.3 g/dL 03/24/2023 7:44 AM DIRECTOR OF MARKETING OPERATIONS [facility] Albumin 3.2(L) 3.5 - 5.2 g/dL 03/24/2023 7:44 AM DIRECTOR OF MARKETING OPERATIONS [facility] Bilirubin Total 0.8 <=1.2 mg/dL 03/24/2023 7:44 AM DIRECTOR OF MARKETING OPERATIONS [facility] Alkaline Phosphatase 113 40 - 150 U/L 03/24/2023 7:44 AM DIRECTOR OF MARKETING OPERATIONS [facility] Comment:Reference intervals for this test were updated on 03/14/2023 to more accurately reflect our healthy population. There may be differences in the flagging of prior results with similar values performed with this method. Interpretation of those prior results can be made in the context of the updated reference intervals. AST 64(H) 0 - 45 U/L 03/24/2023 7:44 AM DIRECTOR OF MARKETING OPERATIONS [facility] Comment:Reference intervals for this test were updated on 10/10/2022 to more accurately reflect our healthy population. There may be differences in the flagging of prior results with similar values performed with this method. Interpretation of those prior results can be made in the context of the updated reference intervals. ALT 58(H) 0 - 50 U/L 03/24/2023 7:44 AM DIRECTOR OF MARKETING OPERATIONS [facility] Comment:Reference intervals for this test were updated on 10/10/2022 to more accurately reflect our healthy population. There may be differences in the flagging of prior results with similar values performed with this method. Interpretation of those prior results can be made in the context of the updated reference intervals. Bilirubin Direct 0.35(H) 0.00 - 0.30 mg/dL 03/24/2023 7:44 AM DIRECTOR OF MARKETING OPERATIONS [facility] Blood BLOOD SPECIMEN / Unknown Venipuncture / Unknown 03/24/2023 7:04 AM DIRECTOR OF MARKETING OPERATIONS 03/24/2023 7:22 AM DIRECTOR OF MARKETING OPERATIONS Cody Villarreal MD LAB - BLOOD ORDERABL ES LAB[facility]AT[facility] [address] [facility], no room number) [place] [address], [facility] [phone] * XR Abdomen Port 1 View (03/24/2023 12:29 AM DIRECTOR OF MARKETING OPERATIONS) Anatomical Region Laterality Modality Abdomen/Pelvis Digital Radiogra phy 03/24/2023 12:2 9 AM DIRECTOR OF MARKETING OPERATIONS Impressions 03/24/2023 12:31 AM DIRECTOR OF MARKETING OPERATIONS IMPRESSION: NG tube side-port is at the EG junction and should be advanced approximately 8 cm. Prior postoperative changes. Normal bowel gas pattern. Significant thoracolumbar curvature convex to the left. Narrative 03/24/2023 12:31 AM DIRECTOR OF MARKETING OPERATIONS EXAM: XR ABDOMEN PORT 1 VIEW LOCATION: [facility] DATE: 03/24/2023 INDICATION: confirm NG placement for decompression COMPARISON: None. Procedure Note Davy Arnold MD - 03/24/2023 EXAM: XR ABDOMEN PORT 1 VIEW LOCATION: [facility] DATE: 03/24/2023 INDICATION: confirm NG placement for decompression COMPARISON: None. IMPRESSION: NG tube side-port is at the EG junction and should be advancedapproximately 8 cm. Prior postoperative changes. Normal bowel gas pattern.Significant thoracolumbar curvature convex to the left. Cody Villarreal MD IMG DIAGNOSTIC IMAGI NG ORDERABLES * ANE AIRWAY ETT PERFORMABLE (03/23/2023 6:36 PM DIRECTOR OF MARKETING OPERATIONS) Narrative Nura Garces APRN AUTO BODY STRAIGHTENER - 03/23/2023 6:36 PM DIRECTOR OF MARKETING OPERATIONS uNra Garces APRN AUTO BODY STRAIGHTENER ? 03/23/2023 ??6:48 PM Airway ? Patient location during procedure: OR ? Procedure Start/Stop Times: 03/23/2023 6:36 PM Staff - ? AUTO BODY STRAIGHTENER: Nura Garces APRN CRNA ? Performed By: AUTO BODY STRAIGHTENER Consent for Airway ? Urgency: elective Indications and Patient Condition ? Indications for airway management: jaswant-procedural ? Induction type:intravenous ? Mask difficulty assessment: 0 - not attempted Final Airway Details ? Final airway type: endotracheal airway ? Successful airway: ETT - single and Oral Endotracheal Airway Details ? ETT size (mm): 7.0 ? Cuffed: yes ? Successful intubation technique: direct laryngoscopy ? DL Blade Type: Prakash 2 ? Grade View of Cords: 1 ? Adjucts: stylet ? Position: Right ? Measured from: lips ? Secured at (cm): 22 ? Bite block used: None Post intubation assessment ? Placement verified by: capnometry, equal breath sounds and chest rise ? Number of attempts at approach: 1 ? Secured with: tape ? Ease of procedure: easy ? Dentition: Intact and Unchanged Medication(s) Administered Medication Administration Time: 03/23/2023 6:36 PM Richy Scott MD CO ANESTHESIA * Potassium (03/23/2023 6:19 AM DIRECTOR OF MARKETING OPERATIONS) Potassium 4.3 3.4 - 5.3 mmol/L 03/23/2023 7:32 AM DIRECTOR OF MARKETING OPERATIONS [facility] Blood STRUCTURE OF LEFT UPPER LIMB / Unknown Venipuncture / Unknown 03/23/2023 6:19 AM DIRECTOR OF MARKETING OPERATIONS 03/23/2023 6:34 AM DIRECTOR OF MARKETING OPERATIONS Bernice Stearns MD LAB - BLOOD ORDER [facility] [address] Lab (1st floor, no room number) [place] [address], [facility] [phone] * (ABNORMAL) Comprehensive metabolic panel (03/23/2023 6:19 AM DIRECTOR OF MARKETING OPERATIONS) Sodium 137 135 - 145 mmol/L 03/23/2023 6:55 AM [facility] Comment:Reference intervals for this test were updated on 01/24/2023 to more accurately reflect our healthy population. There may be differences in the flagging of prior results with similar values performed with this method. Interpretation of those prior results can be made in the context of the updated reference intervals. Potassium 4.3 3.4 - 5.3 mmol/L 03/23/2023 6:55 AM [facility] Carbon Dioxide (CO2) 24 22 - 29 mmol/L 03/23/2023 6:55 AM [facility] Anion Gap 10 7 - 15 mmol/L 03/23/2023 6:55 AM [facility] Urea Nitrogen 20.3 8.0 - 23.0 mg/dL 03/23/2023 6:55 AM [facility] Creatinine 0.91 0.51 - 0.95 mg/dL 03/23/2023 6:55 AM [facility] GFR Estimate 65 >60 mL/min/1. 73m2 03/23/2023 6:55 AM [facility] Calcium 8.4(L) 8.8 - 10.2 mg/dL 03/23/2023 6:55 AM [facility] Chloride 103 98 - 107 mmol/L 03/23/2023 6:55 AM [facility] Glucose 102(H) 70 - 99 mg/dL 03/23/2023 6:55 AM [facility] Alkaline Phosphatase 140 40 - 150 U/L 03/23/2023 6:55 AM [facility] Comment:Reference intervals for this test were updated on 03/14/2023 to more accurately reflect our healthy population. There may be differences in the flagging of prior results with similar values performed with this method. Interpretation of those prior results can be made in the context of the updated reference intervals. AST 114(H) 0 - 45 U/L 03/23/2023 6:55 AM DIRECTOR OF MARKETING OPERATIONS [facility] Comment:Reference intervals for this test were updated on 10/10/2022 to more accurately reflect our healthy population. There may be differences in the flagging of prior results with similar values performed with this method. Interpretation of those prior results can be made in the context of the updated reference intervals. ALT 95(H) 0 - 50 U/L 03/23/2023 6:55 AM DIRECTOR OF MARKETING OPERATIONS [facility] Comment:Reference intervals for this test were updated on 10/10/2022 to more accurately reflect our healthy population. There may be differences in the flagging of prior results with similar values performed with this method. Interpretation of those prior results can be made in the context of the updated reference intervals. Protein Total 6.7 6.4 - 8.3 g/dL 03/23/2023 6:55 AM DIRECTOR OF MARKETING OPERATIONS [facility] Albumin 3.7 3.5 - 5.2 g/dL 03/23/2023 6:55 AM DIRECTOR OF MARKETING OPERATIONS [facility] Bilirubin Total 0.7 <=1.2 mg/dL 03/23/2023 6:55 AM DIRECTOR OF MARKETING OPERATIONS [facility] Blood STRUCTURE OF LEFT UPPER LIMB / Unknown Venipuncture / Unknown 03/23/2023 6:19 AM DIRECTOR OF MARKETING OPERATIONS 03/23/2023 6:34 AM DIRECTOR OF MARKETING OPERATIONS Radha Blood MD LAB - BLOOD ORDERABL ES [facility] [address] [facility] Lab (1st floor, no room number) [place] [address], [facility] [phone] * (ABNORMAL) CBC with platelets (03/23/2023 6:19 AM DIRECTOR OF MARKETING OPERATIONS) Only the most recent of2 resultswithin the time period is included. WBC Count 9.4 4.0 - 11.0 10e3/uL 03/23/2023 6:37 AM DIRECTOR OF MARKETING OPERATIONS [facility] RBC Count 3.76(L) 3.80 - 5.20 10e6/uL 03/23/2023 6:37 AM DIRECTOR OF MARKETING OPERATIONS [facility] Hemoglobin 11.8 11.7 - 15.7 g/dL 03/23/2023 6:37 AM DIRECTOR OF MARKETING OPERATIONS [facility] Hematocrit 36.6 35.0 - 47.0 % 03/23/2023 6:37 AM DIRECTOR OF MARKETING OPERATIONS [facility] MCV 97 78 - 100 fL 03/23/2023 6:37 AM DIRECTOR OF MARKETING OPERATIONS [facility] MCH 31.4 26.5 - 33.0 pg 03/23/2023 6:37 AM DIRECTOR OF MARKETING OPERATIONS [facility] MCHC 32.2 31.5 - 36.5 g/dL 03/23/2023 6:37 AM DIRECTOR OF MARKETING OPERATIONS [facility] RDW 13.6 10.0 - 15.0 % 03/23/2023 6:37 AM DIRECTOR OF MARKETING OPERATIONS [facility] Platelet Count 256 150 - 450 10e3/uL 03/23/2023 6:37 AM DIRECTOR OF MARKETING OPERATIONS [facility] Blood STRUCTURE OF LEFT UPPER LIMB / Unknown Venipuncture / Unknown 03/23/2023 6:19 AM DIRECTOR OF MARKETING OPERATIONS 03/23/2023 6:34 AM DIRECTOR OF MARKETING OPERATIONS Radha Blood MD LAB - BLOOD ORDERABL ES [facility] Acute [facility] Lab [address] Lab (1st floor, no room number) [place] [address], [facility] [phone] * Lactic acid whole blood (03/22/2023 5:05 PM DIRECTOR OF MARKETING OPERATIONS) Lactic Acid 0.9 0.7 - 2.0 mmol/L 03/22/2023 5:22 PM DIRECTOR OF MARKETING OPERATIONS [facility] Blood STRUCTURE OF RIGHT UPPER LIMB / Unknown Venipuncture / Unknown 03/22/2023 5:05 PM DIRECTOR OF MARKETING OPERATIONS 03/22/2023 5:11 PM DIRECTOR OF MARKETING OPERATIONS Radha Blood MD LAB - BLOOD ORDERABL ES [facility] Acute [facility] Lab [address] Lab (1st floor, no room number) [place] [address], [facility] [phone] * LAB RESULT - HIM SCAN (03/22/2023 12:00 AM DIRECTOR OF MARKETING OPERATIONS) 03/22/2023 Provider Outside NON-BEAKER LAB TE STING * CT IMAGING - HIM SCAN (03/22/2023 12:00 AM DIRECTOR OF MARKETING OPERATIONS) Anatomical Region Laterality Modality Computed Tomogra phy 03/22/[address] ORDERABLES from Last 3 Months Advance Directives For more information, please contact: [phone] Latest Code Status on File Code Status Date Activated Date Inactivated Comments Full Code 03/22/2023 6:21 PM 03/27/2023 3:49 PM All basic and advanced life-sustaining interventions are performed as appropriate Question Answer Comments Code status determined by: Discussion with patient/ legal decision maker Care Teams Family Nurse Practitioner Relationship Specialty Start Date End Date Juan Rojas MD [facility] [address] [place] [address] PCP - General Family Medicine 03/23/23
--- OUTSIDE RECORDS SUMMARY | 2023-05-24 16:32 | XMS_ITS | Encounter Summary ---
Author Name Unknown Organization [facility] Address [address] [place] [address] Care Team Providers Care Aquaculturist Name Role Phone Juan Rojas MD Primary Care Provider [phone] Encounter Details Date Type Department Care Team (Late st Contact Info) Description 04/10/2023 Telephone [facility] [place] [address] [place] [id number] Daisy Pedraza PA-C [address] [place], [place] [id number] Social History Tobacco Use Types Packs/Day Years [...] encounter Miscellaneous Notes * Telephone Encounter - Daisy Pedraza PA-C - 04/10/2023 12:44 PM MEDICAL RECORD CLERK [facility] Post op call note Gail Huynh was called for an update regarding her recovery. She underwent Diagnostic laparoscopy, converted to open laparostomy, extensive lysis of adhesions, removal of small bowel phytobezoar through small bowel enterotomy, repair of small bowel enterotomy, revision of ileostomy fascial exit, peritoneal lavage by Dr Villarreal on 03/23/2023. She is still very tired but otherwise is doing well. She is eating a normal diet and has good output from her ostomy. She had no issues with her Provena wound vac and had her miguelito removed by Home Health Rn. She states her wounds are healing well. She was instructed to slowly and gradually resume all normal activities. She states all of her questions were answered. She understands our discussion. She agrees to follow up as needed or to call our office with any concerns. Daisy Pedraza PA-C CAL RECORD CLERK documented in this encounter Plan of Treatment Not on file documented as of this encounter Visit Diagnoses Not on filedocumented in this encounter Care Teams Aquaculturist Relationship Specialty Start Date End Date Juan Rojas MD [place] [address] [place] [address] PCP - General Family Medicine 03/23/23 documented as of this encounter
--- OUTSIDE RECORDS SUMMARY | 2023-05-24 16:32 | XMS_ITS | Clinical Summary ---
Author Name Unknown Organization [facility] Address [facility] [place] [place] [address] Care Team Providers Care Trainer Name Role Phone Juan Rojas MD Primary Care Provider [phone] Allergies Active Allergy Reactions Criticality Noted Date [...] unspecified 03/25/2023 SBO (small bowel obstruction) 03/22/2023 Encounters Date Type Department Care Team Description 04/10/2023 Telephone [facility] [address] [place] [phone] Daisy Pedraza PA-C 04/04/2023 Telephone [facility] [address] [place] [phone] Cody Villarreal MD Post-Op - General Surgery (Can home health remove miguelito? ) 03/28/2023 Telephone [facility] [address], [address] [place] [phone] Cody Villarreal MD Post-Op - General Surgery (Need wound vac supplies and orders. ) 03/23/2023 6:26 PM FIELD OPERATIONS MANAGER Anesthesia Event [facility] [address] [place] [phone] Richy Scott MD Osborn, Ronald D, DO 03/23/2023 5:30 PM FIELD OPERATIONS MANAGER - 03/23/2023 7:25 PM FIELD OPERATIONS MANAGER Surgery [facility] [address] [place] [phone] Cody Villarreal MD LAPAROSCOPY, DIAGNOSTIC, BY GENERAL SURGERY, convert to open, lysis of adhesions, partial mesh explantation, repair of small bowel enterotomy 03/22/2023 3:53 PM FIELD OPERATIONS MANAGER - 03/27/2023 1:40 PM FIELD OPERATIONS MANAGER Hospital Encounter [facility] [address] [place] [address] Fransisco Licea MD Dorn, Karen T, MD SBO (small bowel obstruction) (H) (Primary Dx) Discharge Disposition: Home or Self Care 03/22/2023 Telephone [facility] Services - General Medicine & Pediatrics Critical access hospital[facility] [place] [address] Louise Younger PA-C from Last 3 Months Family History Medical History Relation Comments Ulcerative Colitis Brother Cataracts Father Cataracts Mother Ulcerative Colitis Mother Relation Status Comments Brother Father Mother Social History Tobacco Use Types Packs/Day Years [...] Comments Blood Pressure 155/66 03/27/2023 8:11 AM FIELD OPERATIONS MANAGER Pulse 90 03/27/2023 8:11 AM FIELD OPERATIONS MANAGER Temperature 36.5 ??C (97.7 ??F) 03/27/2023 8:11 AM CS T Respiratory Rate 18 03/27/2023 8:11 AM FIELD OPERATIONS MANAGER Oxygen Saturation 93% 03/27/2023 8:11 AM FIELD OPERATIONS MANAGER Inhaled Oxygen Concentration - - Weight 98.3 kg (216 lb 11.4 oz) 03/22/2023 3:57 PM FIELD OPERATIONS MANAGER Height 160 cm (5' 3) 03/22/2023 5:00 PM FIELD OPERATIONS MANAGER Body Mass Index 38.39 03/22/2023 3:57 PM FIELD OPERATIONS MANAGER Plan of Treatment Health Maintenance Due Date Last Done Comments ADVANCE CARE PLANNING 1945 ANNUAL REVIEW OF HM ORDERS 1946 DEXA 1946 TSH W/FREE T4 REFLEX 1946 HEPATITIS C SCREENING 1964 LIPID 1991 RSV VACCINE ( & 60+) (1 - 1-dose 60+ series) 2006 FALL RISK ASSESSMENT 2011 ZOSTER IMMUNIZATION (1 of 2) 09/03/2013 07/09/2013 Pneumococcal Vaccine: 65+ Years (4 of 4 - PPSV23 or PCV20) 11/12/2015 11/11/2014, 09/28/2009, 05/01/2007 MEDICARE ANNUAL WELLNESS VISIT 02/22/2022 02/22/2021 COVID-19 Vaccine ( season) 2022 03/09/2022, 02/22/2021, 07/29/2020, Additional history exists PHQ-2 (once per calendar year) 2023 DTAP/TDAP/TD IMMUNIZATION (3 - Td or Tdap) 12/27/2032 12/27/2022, 03/21/2012, 09/28/2009, Additional history exists INFLUENZA VACCINE Completed 02/06/2023, , 02/15/2021, Additional history exists HPV IMMUNIZATION Aged Out No longer e ligible based on patient's age to complete this topic IPV IMMUNIZATION Aged Out No longer e ligible based on patient's age to complete this topic MENINGITIS IMMUNIZATION Aged Out No l onger eligible based on patient's age to complete this topic RSV MONOCLONAL ANTIBODY Aged Out No l onger eligible based on patient's age to complete this topic Procedures Procedure Name Priority Date/Time Associated Diagnosis Comments CBC WITH PLATELETS & DIFFERENTIAL Routine 03/27/2023 6:31 AM FIELD OPERATIONS MANAGER RBC AND PLATELET MORPHOLOGY Routine 03/27/2023 6:31 AM FIELD OPERATIONS MANAGER CBC WITH PLATELETS AND DIFFERENTIAL Routine 03/27/2023 6:31 AM FIELD OPERATIONS MANAGER BASIC METABOLIC PANEL Routine 03/27/2023 6:31 AM FIELD OPERATIONS MANAGER MAGNESIUM Routine 03/27/2023 6:31 AM FIELD OPERATIONS MANAGER CBC WITH PLATELETS & DIFFERENTIAL Routine 03/26/2023 6:54 AM FIELD OPERATIONS MANAGER CBC WITH PLATELETS AND DIFFERENTIAL Routine 03/26/2023 6:54 AM FIELD OPERATIONS MANAGER MAGNESIUM Routine 03/26/2023 6:54 AM FIELD OPERATIONS MANAGER BASIC METABOLIC PANEL Routine 03/26/2023 6:54 AM FIELD OPERATIONS MANAGER GLUCOSE BY METER Routine 03/25/2023 4:56 PM FIELD OPERATIONS MANAGER US RENAL COMPLETE NON-VASCULAR Routine 03/25/2023 11:14 AM FIELD OPERATIONS MANAGER CBC WITH PLATELETS & DIFFERENTIAL Routine 03/25/2023 6:54 AM FIELD OPERATIONS MANAGER CBC WITH PLATELETS AND DIFFERENTIAL Routine 03/25/2023 6:54 AM FIELD OPERATIONS MANAGER BASIC METABOLIC PANEL Routine 03/25/2023 6:54 AM FIELD OPERATIONS MANAGER MAGNESIUM Routine 03/25/2023 6:54 AM FIELD OPERATIONS MANAGER EKG 12-LEAD, TRACING ONLY Routine 03/24/2023 3:35 PM FIELD OPERATIONS MANAGER CBC WITH PLATELETS & DIFFERENTIAL Routine 03/24/2023 7:04 AM FIELD OPERATIONS MANAGER CBC WITH PLATELETS AND DIFFERENTIAL Routine 03/24/2023 7:04 AM FIELD OPERATIONS MANAGER PHOSPHORUS Routine 03/24/2023 7:04 AM FIELD OPERATIONS MANAGER HEPATIC FUNCTION PANEL Routine 7:04 AM FIELD OPERATIONS MANAGER BASIC METABOLIC PANEL Routine 03/24/2023 7:04 AM FIELD OPERATIONS MANAGER MAGNESIUM Routine 03/24/2023 7:04 AM FIELD OPERATIONS MANAGER XR ABDOMEN PORT 1 VIEW Routine 12:29 AM FIELD OPERATIONS MANAGER ANE AIRWAY ETT PERFORMABLE Routine 03/23/2023 6:36 PM FIELD OPERATIONS MANAGER LAPAROSCOPY, DIAGNOSTIC, BY GENERAL SURGERY 03/23/2023 6:19 PM FIELD OPERATIONS MANAGER SBO (small bowel obstruction) (H) POTASSIUM Routine 03/23/2023 6:19 AM FIELD OPERATIONS MANAGER MAGNESIUM Routine 03/23/2023 6:19 AM FIELD OPERATIONS MANAGER CBC WITH PLATELETS Routine 03/23/2023 6: 19 AM FIELD OPERATIONS MANAGER COMPREHENSIVE METABOLIC PANEL Routine 03/23/2023 6:19 AM FIELD OPERATIONS MANAGER LACTIC ACID WHOLE BLOOD STAT 03/22/2023 5:05 PM FIELD OPERATIONS MANAGER CBC WITH PLATELETS STAT 03/22/2023 5: 05 PM FIELD OPERATIONS MANAGER BASIC METABOLIC PANEL STAT 03/22/2023 5:05 PM FIELD OPERATIONS MANAGER LAB RESULT - HIM SCAN 03/22/2023 12:00 [address] FIELD OPERATIONS MANAGER CT IMAGING - HIM SCAN 03/22/2023 12:00 AM FIELD OPERATIONS MANAGER from Last 3 Months Results * (ABNORMAL) RBC and Platelet Morphology (03/27/2023 6:31 AM FIELD OPERATIONS MANAGER) Platelet Assessment Platelets Clumped(A) Automated Count Confirmed. Platelet morphology is normal. 03/27/2023 7:27 AM FIELD OPERATIONS MANAGER [facility] Acanthocytes 03/27/2023 7:27 AM FIELD OPERATIONS MANAGER [facility] Merrill Rods 03/27/2023 7:27 AM FIELD OPERATIONS MANAGER [facility] Basophilic Stippling 03/27/2023 7:27 AM FIELD OPERATIONS MANAGER [facility] Bite Cells 03/27/2023 7:27 AM FIELD OPERATIONS MANAGER [facility] Blister Cells 03/27/2023 7:27 AM FIELD OPERATIONS MANAGER [facility] [place] Cells 03/27/2023 7:27 AM FIELD OPERATIONS MANAGER [facility] Elliptocytes 03/27/2023 7:27 AM FIELD OPERATIONS MANAGER [facility] Hgb C Crystals 03/27/2023 7:27 AM FIELD OPERATIONS MANAGER [facility] [place] Bodies 03/27/2023 7:27 AM FIELD OPERATIONS MANAGER [facility] Hypersegmented Neutrophils 03/27/2023 7:27 AM FIELD OPERATIONS MANAGER [facility] Polychromasia 03/27/2023 7:27 AM FIELD OPERATIONS MANAGER [facility] RBC agglutination 023 7:27 AM FIELD OPERATIONS MANAGER [facility] RBC Fragments 03/27/2023 7:27 AM FIELD OPERATIONS MANAGER [facility] Reactive Lymphocytes 03/27/2023 7:27 AM FIELD OPERATIONS MANAGER [facility] Rouleaux 03/27/2023 7:27 AM FIELD OPERATIONS MANAGER [facility] Sickle Cells 03/27/2023 7:27 AM FIELD OPERATIONS MANAGER [facility] Smudge Cells 03/27/2023 7:27 AM FIELD OPERATIONS MANAGER [facility] Spherocytes 03/27/2023 7:27 AM FIELD OPERATIONS MANAGER [facility] Stomatocytes 03/27/2023 7:27 AM FIELD OPERATIONS MANAGER [facility] Target Cells 03/27/2023 7:27 AM FIELD OPERATIONS MANAGER [facility] Teardrop Cells 03/27/2023 7:27 AM FIELD OPERATIONS MANAGER [facility] Toxic Neutrophils 023 7:27 AM FIELD OPERATIONS MANAGER [facility] RBC Morphology Confirmed RBC Indices 03/27/2023 7:27 AM FIELD OPERATIONS MANAGER [facility] Blood STRUCTURE OF RIGHT UPPER LIMB / Unknown Venipuncture / Unknown 03/27/2023 6:31 AM FIELD OPERATIONS MANAGER 03/27/2023 6:39 AM FIELD OPERATIONS MANAGER Bernice Stearns MD LAB - BLOOD ORDER MILE [facility] Lab [address] Lab (1st floor, no room number) [place] [address] [place] [phone] * (ABNORMAL) CBC with platelets and differential (03/27/2023 6:31 AM FIELD OPERATIONS MANAGER) Only the most recent of4 resultswithin the time period is included. WBC Count 6.9 4.0 - 11.0 10e3/uL 03/27/2023 7:29 AM FIELD OPERATIONS MANAGER [facility] RBC Count 2.95(L) 3.80 - 5.20 10e6/uL 03/27/2023 7:29 AM FIELD OPERATIONS MANAGER [facility] Hemoglobin 9.2(L) 11.7 - 15.7 g/dL 03/27/2023 7:29 AM FIELD OPERATIONS MANAGER [facility] Hematocrit 29.6(L) 35.0 - 47.0 % 03/27/2023 7:29 AM FIELD OPERATIONS MANAGER [facility] MCV 100 78 - 100 fL 03/27/2023 7:29 AM FIELD OPERATIONS MANAGER [facility] MCH 31.2 26.5 - 33.0 pg 03/27/2023 7:29 AM FIELD OPERATIONS MANAGER [facility] MCHC 31.1(L) 31.5 - 36.5 g/dL 03/27/2023 7:29 AM FIELD OPERATIONS MANAGER LABORATORY RDW 13.9 10.0 - 15.0 % 03/27/2023 7:29 AM FIELD OPERATIONS MANAGER [facility] Platelet Count 03/27/2023 7:29 AM FIELD OPERATIONS MANAGER [facility] Comment:Platelets Clumped-Pl atelet Count Not Available % Neutrophils 62 % 03/27/2023 7:29 AM FIELD OPERATIONS MANAGER [facility] % Lymphocytes 21 % 03/27/2023 7:29 AM FIELD OPERATIONS MANAGER [facility] % Monocytes 14 % 03/27/2023 7:29 AM FIELD OPERATIONS MANAGER [facility] % Eosinophils 1 % 03/27/2023 7:29 AM FIELD OPERATIONS MANAGER LABORATORY % Basophils 1 % 03/27/2023 7:29 AM FIELD OPERATIONS MANAGER [facility] % Immature Granulocytes 1 % 03/27/2023 7:29 AM FIELD OPERATIONS MANAGER LABORATORY NRBCs per 100 WBC 0 <1 /100 023 7:29 AM FIELD OPERATIONS MANAGER LABORATORY Absolute Neutrophils 4.4 1.6 - 8.3 10e3/uL 03/27/2023 7:29 AM FIELD OPERATIONS MANAGER LABORATORY Absolute Lymphocytes 1.4 0.8 - 5.3 10e3/uL 03/27/2023 7:29 AM FIELD OPERATIONS MANAGER LABORATORY Absolute Monocytes 0.9 0.0 - 1.3 10e3/uL 03/27/2023 7:29 AM FIELD OPERATIONS MANAGER LABORATORY Absolute Eosinophils 0.0 0.0 - 0.7 10e3/uL 03/27/2023 7:29 AM FIELD OPERATIONS MANAGER LABORATORY Absolute Basophils 0.0 0.0 - 0.2 10e3/uL 03/27/2023 7:29 AM FIELD OPERATIONS MANAGER LABORATORY Absolute Immature Granulocytes 0.1 <=0.4 10e3/uL 03/27/2023 7:29 AM FIELD OPERATIONS MANAGER LABORATORY Absolute NRBCs 0.0 10e3/uL 03/27/2023 7:29 AM FIELD OPERATIONS MANAGER LABORATORY Blood STRUCTURE OF RIGHT UPPER LIMB / Unknown Venipuncture / Unknown 03/27/2023 6:31 AM FIELD OPERATIONS MANAGER 03/27/2023 6:39 AM FIELD OPERATIONS MANAGER Bernice Stearns MD LAB - BLOOD ORDER MILE [facility] Acute [facility] Lab [address] Lab (1st floor, no room number) [place] [address], [facility] [phone] * (ABNORMAL) Magnesium (03/27/2023 6:31 AM FIELD OPERATIONS MANAGER) Only the most recent of5 resultswithin the time period is included. Magnesium 1.6(L) 1.7 - 2.3 mg/dL 03/27/2023 6:59 AM FIELD OPERATIONS MANAGER LABORATORY Blood STRUCTURE OF RIGHT UPPER LIMB / Unknown Venipuncture / Unknown 03/27/2023 6:31 AM FIELD OPERATIONS MANAGER 03/27/2023 6:39 AM FIELD OPERATIONS MANAGER Fransisco Licea MD LAB - BLOOD ORDERA BLES LABORATORY [facility] Acute [facility] Lab [address] [facility] Lab (1st floor, no room number) [place] [address], [facility] [phone] * (ABNORMAL) Basic metabolic panel (03/27/2023 6:31 AM FIELD OPERATIONS MANAGER) Only the most recent of5 resultswithin the time period is included. Sodium 134(L) 135 - 145 mmol/L 03/27/2023 6:59 AM [facility] Comment:Reference intervals for this test were updated on 01/24/2023 to more accurately reflect our healthy population. There may be differences in the flagging of prior results with similar values performed with this method. Interpretation of those prior results can be made in the context of the updated reference intervals. Potassium 4.1 3.4 - 5.3 mmol/L 03/27/2023 6:59 AM [facility] Chloride 101 98 - 107 mmol/L 03/27/2023 6:59 AM [facility] Carbon Dioxide (CO2) 24 22 - 29 mmol/L 03/27/2023 6:59 AM [facility] Anion Gap 9 7 - 15 mmol/L 03/27/2023 6:59 AM [facility] Urea Nitrogen 15.5 8.0 - 23.0 mg/dL 03/27/2023 6:59 AM [facility] Creatinine 0.84 0.51 - 0.95 mg/dL 03/27/2023 6:59 AM [facility] GFR Estimate 72 >60 mL/min/1. 73m2 03/27/2023 6:59 AM FIELD OPERATIONS MANAGER LABORATORY Calcium 8.5(L) 8.8 - 10.2 mg/dL 03/27/2023 6:59 AM FIELD OPERATIONS MANAGER LABORATORY Glucose 102(H) 70 - 99 mg/dL 03/27/2023 6:59 AM FIELD OPERATIONS MANAGER LABORATORY Blood STRUCTURE OF RIGHT UPPER LIMB / Unknown Venipuncture / Unknown 03/27/2023 6:31 AM FIELD OPERATIONS MANAGER 03/27/2023 6:39 AM FIELD OPERATIONS MANAGER Bernice Stearns MD LAB - BLOOD ORDER MILE LABORATORY [facility] Lab [id number] Lab (1st floor, no room number) [place] [address], [place] [phone] * (ABNORMAL) Glucose by meter (03/25/2023 4:56 PM FIELD OPERATIONS MANAGER) [facility] GLUCOSE BY METER POCT 119(H) 70 - 99 mg/dL 03/25/2023 5:04 PM FIELD OPERATIONS MANAGER LABORATORY POC Blood, Capillary BLOOD SPECIMEN / Unknown 03/25/2023 4:56 PM FIELD OPERATIONS MANAGER 03/25/2023 5:04 PM FIELD OPERATIONS MANAGER Fransisco Licea MD LAB - BEAKER POCT LABORATORY [facility] Lab [address] Lab (1st floor, no room number) [place] [address], [place] [phone] * US Renal Complete Non-Vascular (03/25/2023 11:14 AM FIELD OPERATIONS MANAGER) Anatomical Region Laterality Modality Abdomen/Pelvis Ultrasound 03/25/2023 11:1 4 AM FIELD OPERATIONS MANAGER Impressions 03/25/2023 3:04 PM FIELD OPERATIONS MANAGER IMPRESSION: 1. ??Normal kidney ultrasound. Narrative 03/25/2023 3:04 PM FIELD OPERATIONS MANAGER EXAM: US RENAL COMPLETE NON-VASCULAR LOCATION: [facility] DATE: 03/25/2023 INDICATION: BRICE post op abdominal surgery, rule out obstruction COMPARISON: None. TECHNIQUE: Routine Bilateral Renal and Bladder Ultrasound. FINDINGS: RIGHT KIDNEY: 10.2 cm. Normal without hydronephrosis or masses. LEFT KIDNEY: 11.1 cm. Normal without hydronephrosis or masses. BLADDER: Normal. Procedure Note Kirby Diamond MD - 03/25/2023 EXAM: US RENAL COMPLETE NON-VASCULAR LOCATION: [facility] DATE: 03/25/2023 INDICATION: BRICE post op abdominal surgery, rule out obstruction COMPARISON: None. TECHNIQUE: Routine Bilateral Renal and Bladder Ultrasound. FINDINGS: RIGHT KIDNEY: 10.2 cm. Normal without hydronephrosis or masses. LEFT KIDNEY: 11.1 cm. Normal without hydronephrosis or masses. BLADDER: Normal. IMPRESSION: 1. Normal kidney ultrasound. Bernice Stearns MD IMG US ORDERABLES * EKG 12-lead, tracing only (03/24/2023 3:35 PM FIELD OPERATIONS MANAGER) Systolic Blood Pressure mmHg RADIOLOGY RESULTS Diastolic Blood Pressure mmHg RADIOLOGY RESULTS Ventricular Rate 102 BPM RAD IOLOGY RESULTS Atrial Rate 102 BPM RADIOLOG Y RESULTS IN Interval 178 ms RADIOLOG Y RESULTS QRS Duration 88 ms RADIOLO GY RESULTS QT 354 ms RADIOLOGY RESULTS QTc 461 ms RADIOLOGY RESULTS P [place] 72 degrees RADIOLOGY RESULTS R AXIS 75 degrees RADIOLOGY RESULTS T [place] 74 degrees RADIOLOGY RESULTS Interpretation ECG Sinus tachycardia Possible Left atrial enlargement Cannot rule out Anterior infarct , age undetermined Abnormal ECG No previous ECGs available IVCD in inferior leads Confirmed by MD TERRI, MERRILL ([id number]), primer expeditor and drier Tremaine Brown ([id number]) on 03/27/2023 11:15:18 AM RADIOLOGY RESULTS 03/24/2023 3:35 PM FIELD OPERATIONS MANAGER 03/27/2023 11:15 AM FIELD OPERATIONS MANAGER Bernice Stearns MD ECG ORDERABLES RADIOLOGY RESULTS * (ABNORMAL) Phosphorus (03/24/2023 7:04 AM FIELD OPERATIONS MANAGER) Phosphorus 4.7(H) 2.5 - 4.5 mg/dL 03/24/2023 7:44 AM FIELD OPERATIONS MANAGER [facility] Blood BLOOD SPECIMEN / Unknown Venipuncture / Unknown 03/24/2023 7:04 AM FIELD OPERATIONS MANAGER 03/24/2023 7:22 AM FIELD OPERATIONS MANAGER Cody Villarreal MD LAB - BLOOD ORDERABL ES [facility] Acute Care Lab [address] Lab (1st floor, no room number) [place] [address], [facility] [phone] * (ABNORMAL) Hepatic function panel (03/24/2023 7:04 AM FIELD OPERATIONS MANAGER) Pathologist [facility] [place] Protein Total 6.1(L) 6.4 - 8.3 g/dL 03/24/2023 7:44 AM FIELD OPERATIONS MANAGER [facility] Albumin 3.2(L) 3.5 - 5.2 g/dL 03/24/2023 7:44 AM FIELD OPERATIONS MANAGER [facility] Bilirubin Total 0.8 <=1.2 mg/dL 03/24/2023 7:44 AM FIELD OPERATIONS MANAGER [facility] Alkaline Phosphatase 113 40 - 150 U/L 03/24/2023 7:44 AM FIELD OPERATIONS MANAGER [facility] Comment:Reference intervals for this test were updated on 03/14/2023 to more accurately reflect our healthy population. There may be differences in the flagging of prior results with similar values performed with this method. Interpretation of those prior results can be made in the context of the updated reference intervals. AST 64(H) 0 - 45 U/L 03/24/2023 7:44 AM FIELD OPERATIONS MANAGER [facility] Comment:Reference intervals for this test were updated on 10/10/2022 to more accurately reflect our healthy population. There may be differences in the flagging of prior results with similar values performed with this method. Interpretation of those prior results can be made in the context of the updated reference intervals. ALT 58(H) 0 - 50 U/L 03/24/2023 7:44 AM FIELD OPERATIONS MANAGER [facility] Comment:Reference intervals for this test were updated on 10/10/2022 to more accurately reflect our healthy population. There may be differences in the flagging of prior results with similar values performed with this method. Interpretation of those prior results can be made in the context of the updated reference intervals. Bilirubin Direct 0.35(H) 0.00 - 0.30 mg/dL 03/24/2023 7:44 AM FIELD OPERATIONS MANAGER LABORATORY Blood BLOOD SPECIMEN / Unknown Venipuncture / Unknown 03/24/2023 7:04 AM FIELD OPERATIONS MANAGER 03/24/2023 7:22 AM FIELD OPERATIONS MANAGER Cody Villarreal MD LAB - BLOOD ORDERABL ES [facility] Acute Care Lab [address] Lab (1st floor, no room number) [place] [address], [facility] [phone] * XR Abdomen Port 1 View (03/24/2023 12:29 AM FIELD OPERATIONS MANAGER) Anatomical Region Laterality Modality Abdomen/Pelvis Digital Radiogra phy 03/24/2023 12:2 9 AM FIELD OPERATIONS MANAGER Impressions 03/24/2023 12:31 AM FIELD OPERATIONS MANAGER IMPRESSION: NG tube side-port is at the EG junction and should be advanced approximately 8 cm. Prior postoperative changes. Normal bowel gas pattern. Significant thoracolumbar curvature convex to the left. Narrative 03/24/2023 12:31 AM FIELD OPERATIONS MANAGER EXAM: XR ABDOMEN PORT 1 VIEW LOCATION: [facility] DATE: 03/24/2023 INDICATION: confirm NG placement for decompression COMPARISON: None. Procedure Note Davy Arnold MD - 03/24/2023 EXAM: XR ABDOMEN PORT 1 VIEW LOCATION: [facility] DATE: 03/24/2023 INDICATION: confirm NG placement for decompression COMPARISON: None. IMPRESSION: NG tube side-port is at the EG junction and should be advancedapproximately 8 cm. Prior postoperative changes. Normal bowel gas pattern.Significant thoracolumbar curvature convex to the left. Cody Villarreal MD IMG DIAGNOSTIC IMAGI NG ORDERABLES * ANE AIRWAY ETT PERFORMABLE (03/23/2023 6:36 PM FIELD OPERATIONS MANAGER) Narrative Nura Garces APRN ASSISTANT STORE MANAGER SALES - 03/23/2023 6:36 PM FIELD OPERATIONS MANAGER Nura Garces APRN ASSISTANT STORE MANAGER SALES ? 03/23/2023 ??6:48 PM Airway ? Patient location during procedure: OR ? Procedure Start/Stop Times: 03/23/2023 6:36 PM Staff - ? ASSISTANT STORE MANAGER SALES: Nura Garces APRN CRNA ? Performed By: ASSISTANT STORE MANAGER SALES Consent for Airway ? Urgency: elective Indications [...] Time: 03/23/2023 6:36 PM Richy Scott MD IN ANESTHESIA * Potassium (03/23/2023 6:19 AM FIELD OPERATIONS MANAGER) Potassium 4.3 3.4 - 5.3 mmol/L 03/23/2023 7:32 AM FIELD OPERATIONS MANAGER LABORATORY Blood STRUCTURE OF LEFT UPPER LIMB / Unknown Venipuncture / Unknown 03/23/2023 6:19 AM FIELD OPERATIONS MANAGER 03/23/2023 6:34 AM FIELD OPERATIONS MANAGER Bernice Stearns MD LAB - BLOOD ORDER MILE RH LAB[facility]ATORY [facility] Lab [address] Lab (1st floor, no room number) [place] [address] [place] [phone] * (ABNORMAL) Comprehensive metabolic panel (03/23/2023 6:19 AM FIELD OPERATIONS MANAGER) [facility] Sodium 137 135 - 145 mmol/L 03/23/2023 6:55 AM [facility] Comment:Reference intervals for this test were updated on 01/24/2023 to more accurately reflect our healthy population. There may be differences in the flagging of prior results with similar values performed with this method. Interpretation of those prior results can be made in the context of the updated reference intervals. Potassium 4.3 3.4 - 5.3 mmol/L 03/23/2023 6:55 AM [facility] Carbon Dioxide (CO2) 24 22 - 29 mmol/L 03/23/2023 6:55 AM [facility] Anion Gap 10 7 - 15 mmol/L 03/23/2023 6:55 AM [facility] Urea Nitrogen 20.3 8.0 - 23.0 mg/dL 03/23/2023 6:55 AM [facility] Creatinine 0.91 0.51 - 0.95 mg/dL 03/23/2023 6:55 AM [facility] GFR Estimate 65 >60 mL/min/1. 73m2 03/23/2023 6:55 AM [facility] Calcium 8.4(L) 8.8 - 10.2 mg/dL 03/23/2023 6:55 AM [facility] Chloride 103 98 - 107 mmol/L 03/23/2023 6:55 AM [facility] Glucose 102(H) 70 - 99 mg/dL 03/23/2023 6:55 AM [facility] Alkaline Phosphatase 140 40 - 150 U/L 03/23/2023 6:55 AM [facility] Comment:Reference intervals for this test were updated on 03/14/2023 to more accurately reflect our healthy population. There may be differences in the flagging of prior results with similar values performed with this method. Interpretation of those prior results can be made in the context of the updated reference intervals. AST 114(H) 0 - 45 U/L 03/23/2023 6:55 AM [facility] Comment:Reference intervals for this test were updated on 10/10/2022 to more accurately reflect our healthy population. There may be differences in the flagging of prior results with similar values performed with this method. Interpretation of those prior results can be made in the context of the updated reference intervals. ALT 95(H) 0 - 50 U/L 03/23/2023 6:55 AM FIELD OPERATIONS MANAGER [facility] Comment:Reference intervals for this test were updated on 10/10/2022 to more accurately reflect our healthy population. There may be differences in the flagging of prior results with similar values performed with this method. Interpretation of those prior results can be made in the context of the updated reference intervals. Protein Total 6.7 6.4 - 8.3 g/dL 03/23/2023 6:55 AM FIELD OPERATIONS MANAGER [facility] Albumin 3.7 3.5 - 5.2 g/dL 03/23/2023 6:55 AM FIELD OPERATIONS MANAGER [facility] Bilirubin Total 0.7 <=1.2 mg/dL 03/23/2023 6:55 AM FIELD OPERATIONS MANAGER [facility] Blood STRUCTURE OF LEFT UPPER LIMB / Unknown Venipuncture / Unknown 03/23/2023 6:19 AM FIELD OPERATIONS MANAGER 03/23/2023 6:34 AM FIELD OPERATIONS MANAGER Radha Blood MD LAB - BLOOD ORDERABL ES [facility] [address] [facility] (1st floor, no room number) [place] [address], [facility] [phone] * (ABNORMAL) CBC with platelets (03/23/2023 6:19 AM FIELD OPERATIONS MANAGER) Only the most recent of2 resultswithin the time period is included. WBC Count 9.4 4.0 - 11.0 10e3/uL 03/23/2023 6:37 AM FIELD OPERATIONS MANAGER [facility] RBC Count 3.76(L) 3.80 - 5.20 10e6/uL 03/23/2023 6:37 AM FIELD OPERATIONS MANAGER [facility] Hemoglobin 11.8 11.7 - 15.7 g/dL 03/23/2023 6:37 AM FIELD OPERATIONS MANAGER [facility] Hematocrit 36.6 35.0 - 47.0 % 03/23/2023 6:37 AM FIELD OPERATIONS MANAGER [facility] MCV 97 78 - 100 fL 03/23/2023 6:37 AM FIELD OPERATIONS MANAGER [facility] MCH 31.4 26.5 - 33.0 pg 03/23/2023 6:37 AM FIELD OPERATIONS MANAGER [facility] MCHC 32.2 31.5 - 36.5 g/dL 03/23/2023 6:37 AM FIELD OPERATIONS MANAGER [facility] RDW 13.6 10.0 - 15.0 % 03/23/2023 6:37 AM FIELD OPERATIONS MANAGER [facility] Platelet Count 256 150 - 450 10e3/uL 03/23/2023 6:37 AM FIELD OPERATIONS MANAGER [facility] Blood STRUCTURE OF LEFT UPPER LIMB / Unknown Venipuncture / Unknown 03/23/2023 6:19 AM FIELD OPERATIONS MANAGER 03/23/2023 6:34 AM FIELD OPERATIONS MANAGER Radha Blood MD LAB - BLOOD ORDERABL ES [facility] [id number] (1st floor, no room number) [place] [address], [facility] [phone] * Lactic acid whole blood (03/22/2023 5:05 PM FIELD OPERATIONS MANAGER) Lactic Acid 0.9 0.7 - 2.0 mmol/L 03/22/2023 5:22 PM FIELD OPERATIONS MANAGER [facility] Blood STRUCTURE OF RIGHT UPPER LIMB / Unknown Venipuncture / Unknown 03/22/2023 5:05 PM FIELD OPERATIONS MANAGER 03/22/2023 5:11 PM FIELD OPERATIONS MANAGER Radha Blood MD LAB - BLOOD ORDERABL ES [facility] [id number] (1st floor, no room number) [place] [address], [place] [phone] * LAB RESULT - HIM SCAN (03/22/2023 12:00 AM FIELD OPERATIONS MANAGER) 03/22/2023 Provider Outside NON-BEAKER LAB TE STING * CT IMAGING - HIM SCAN (03/22/2023 12:00 AM FIELD OPERATIONS MANAGER) Anatomical Region Laterality Modality Computed Tomogra phy 03/22/[address] ORDERABLES from Last 3 Months Advance Directives For more information, please contact: [phone] Latest Code Status on File Code Status Date Activated Date Inactivated Comments Full Code 03/22/2023 6:21 PM 03/27/2023 3:49 PM All basic and advanced life-sustaining interventions are performed as appropriate Question Answer Comments Code status determined by: Discussion with patient/ legal decision maker Care Teams Trainer Relationship Specialty Start Date End Date Juan Rojas MD [address] [place] [id number] PCP - General Family Medicine 03/23/23
--- OUTSIDE RECORDS SUMMARY | 2023-05-24 16:33 | XMS_ITS | Encounter Summary ---
Author Name Unknown Organization [place] Address [facility] [place] [address] Care Team Providers Care Ladle Puller Name Role Phone Juan Rojas MD Primary Care Provider [phone] Reason for Visit * Auth/Cert (Routine) Specialty Diagnoses / Procedures Referred By Sundar t Referred To Contact Orthopedics Diagnoses SBO (small bowel obstruction) (H) Bowel obstruction SBO (small bowel obstruction) (H) Ortho Spine [address] [place] [address] Referral ID Status Reason Start Date Expiration Date Visits Re quested Visits Authorized [id number] 1 1 Encounter Details Date Type Department Care Team (Late st Contact Info) Description 03/23/2023 5:30 PM TRIMMING OPERATOR - 03/23/2023 7:25 PM TRIMMING OPERATOR Surgery [facility] PeriOp Services [address] [place] [address] Cody Villarreal MD [address] [place] [address] LAPAROSCOPY, DIAGNOSTIC, BY GENERAL SURGERY, convert to open, lysis of adhesions, partial mesh explantation, repair of small bowel enterotomy Surgery Details Date/Time Status Location OR Service Patient Class Case Cl ass Case Type Trauma Case? 03/23/23 5:30 PM Posted [facility] OR OR 02 General Inpatient NEST 3 - Urgent (within 4hrs) Panel 1 Procedure LRB Anes Op Region Wound Class Comments LAPAROSCOPY, DIAGNOSTIC, BY GENERAL SURGERY, convert to open, lysis of adhesions, partial mesh explantation, repair of small bowel enterotomy N/A General Abdomen III-Cont aminated Surgeon Surgeon Role Service Panel Daisy Pedraza PA-C Assisting Reception Centre Manager A uthorization 1 Cody Villarreal MD Primary General 1 documented in this encounter Social History Tobacco Use Types Packs/Day Years [...] on file documented as of this encounter Last Filed Vital Signs Vital Sign Reading Time Taken Comments Blood Pressure 150/78 03/23/2023 5:15 PM TRIMMING OPERATOR Pulse 95 03/23/2023 5:15 PM TRIMMING OPERATOR Temperature 36.5 ??C (97.7 ??F) 03/23/2023 5:15 PM CS T Respiratory Rate 16 03/23/2023 5:15 PM TRIMMING OPERATOR Oxygen Saturation 91% 03/23/2023 5:15 PM TRIMMING OPERATOR Inhaled Oxygen Concentration - - Weight 98.3 kg (216 lb 11.4 oz) 03/22/2023 3:57 PM TRIMMING OPERATOR Height 160 cm (5' 3) 03/22/2023 5:00 PM TRIMMING OPERATOR Body Mass Index 38.39 03/22/2023 3:57 PM TRIMMING OPERATOR documented in this encounter Discharge Summaries * Darshan Simmons MD - 03/27/2023 1:40 PM CST [facility] Hospitalist Discharge Summary Date of Admission: 03/22/2023 Date of Discharge: 03/27/2023 1:40 PM Discharging Provider: Darshan Simmons MD Discharge Service: Hospitalist Service Discharge Diagnoses Partial small bowel obstruction Previous abdominal surgeries with ileostomy Acute kidney injury, resolved Clinically Significant Risk Factors # Obesity: Estimated body mass index is 38.39 kg/m?? as calculated from the following: Height as of this encounter: 1.6 m (5' 3). Weight as of this encounter: 98.3 kg (216 lb 11.4 oz). Follow-ups Needed After Discharge Follow-up Appointments Follow-up and recommended labs and tests Follow up with surgery clinic or PCP in about 10 days to have miguelito removed. If you have any questions or concerns or need to make appointment to have your miguelito removed, please call us at [phone] and ask to speak with our nurse. We are located at [address], [place] [address] Follow-up and recommended labs and tests With primary care within 7 days and check BP, BMP, hemoglobin. Discharge Disposition Discharged to home Condition at discharge: Stable Hospital Course Gail Huynh is a 77 year old woman who was admitted on 03/22/2023. PMH significant for hypertension, hyperlipidemia, MVS/AVS, fibromuscular dysplasia of the renal arteries, hypothyroidism, GERD, asthma/COPD, CORAL, pulmonary hypertension, Hx of Adilson en Y gastric bypass, hx colectomy with ileostomy 2/2 ischemic bowel, and hx of recurrent SBOs admitted on 03/22/2023 via direct admission from [place] ER with at least partial SBO and suspicion for ostomy stricture (she has had a prior stricture requiring dilation at [facility] 3 years ago). Patient reported low grade abdominal discomfort for past weeks and then 03/20 noted bilateral lower quadrant pain. She noted no output from her ostomy site and decreased her PO intake, though denied nausea or emesis. CT Imaging without contrast noted fluid filled and distended loops of small bowel leading to site of RLQ ileostomy. 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 Patient underwent 03/23/23 laparoscopy converted to open with lysis of adhesions, partial mesh explantation, and repair of small bowel enterotomy after finding of phytobezoar. -Bowel function returned and she is tolerating regular diet well at discharge. BRICE, resolved - Creatinine increased from baseline 0.9 to 1.62 on 03/25. - on 03/25 post op, patient noted difficulty urinating, having to push. Had good urine output thereafter. Renal US normal. - Postvoid residuals not elevated. - BRICE resolved with IV fluids and creatinine is 0.8 prior to discharge Tachycardia, resolved Noted post-op. EKG sinus tach. No symptoms. See Holter report from 09/2021 without note of arrhythmia. - Improved with IV fluids and pain control. COPD/asthma CORAL-patient denies and is not on any nocturnal device Pulmonary hypertension She is not on any inhalers at home. No wheezing on exam. Monitor closely Fibromuscular dysplasia of the renal arteries Hypertension Mussel Opener medications include losartan, furosemide, and recently ordered hydrochlorothiazide (which was not yet started). -Resumed at the anti-hypertensives at discharge GERD/hypothyroidism Resuming COATER CARBON PAPER levothyroxine. Acute blood loss and dilutional anemia -Hgb dropped from 11-8 after IV hydration and surgery. Follow as outpatient. Prediabetic Hgb A1c 03/2022 was 5.9%. Hx of mitral valve stenosis Hx of aortic valve stenosis Hx of cLVH No e/o decompensation. Peripheral neuropathy Continue po gabapentin Remote hx of a DVT Hyperlipidemia Can resume COATER CARBON PAPER atorvastatin on discharge. Depression Continue COATER CARBON PAPER bupropion and venlafaxine as tolerated. History of COVID 19 vaccination S/p 3 shot pfizer series followed by moderna booster 03/2022 (biv) Consultations This Hospital Stay COLORECTAL SURGERY IP CONSULT SURGERY GENERAL IP CONSULT CARE MANAGEMENT / SOCIAL WORK IP CONSULT Code Status Prior Time Spent on this Encounter I, Darshan Simmons MD, personally saw the patient today and spent greater than 30 minutes discharging this patient. Darshan Simmons MD [facility] ORTHO SPINE [address] [facility] [address] Physical Exam Vital Signs: Weight: 216 lbs 11.39 oz Primary Care Physician Juan Rojas Discharge Orders Follow-up and recommended labs and tests Follow up with surgery clinic or PCP in about 10 days to have miguelito removed. If you have any questions or concerns or need to make appointment to have your miguelito removed, please call us at [phone] and ask to speak with our nurse. We are located at [address], [place] [address] Activity Your activity upon discharge: activity as tolerated Wound care and dressings Instructions to care for your wound at home: Leave Provena wound vac (purple dressing) in place until Sat. Then gently removed entire dressing. Cover you staple line incision with gauze and tape if you have any drainage after removal. If you need to replace your Ostomy bag before Sat, you may need to also remove the Provena vac as well. Reason for your hospital stay Small bowel obstruction Follow-up and recommended labs and tests With primary care within 7 days and check BP, BMP, hemoglobin. Diet Follow this diet upon discharge: Regular Significant Results and Procedures Most Recent 3 CBC's: Recent Labs Lab Test 03/27/23 0631 03/26/23 0654 03/25/23 0654 03/24/23 0704 WBC 6.9 8.1 11.0 14.8* HGB 9.2* 8.8* 9.1* 10.8* MCV 100 96 98 99 PLT -- 257 220 210 Most Recent 3 BMP's: Recent Labs Lab Test 03/27/23 0631 03/26/23 0654 03/25/23 1656 03/25/23 0654 NA 134* 135 -- 133* POTASSIUM 4.1 4.6 -- 4.6 CHLORIDE 101 101 -- 98 CO2 24 26 -- 25 BUN 15.5 21.8 -- 42.9* CR 0.84 0.99* -- 1.62* ANIONGAP 9 8 -- 10 TIO 8.5* 8.9 -- 8.6* GLC 102* 121* 119* 106* , Results for orders placed or performed during the hospital encounter of 03/22/23 XR Abdomen Port 1 View Narrative EXAM: XR ABDOMEN PORT 1 VIEW LOCATION: [facility] DATE: 03/24/2023 INDICATION: confirm NG placement for decompression COMPARISON: None. Impression IMPRESSION: NG tube side-port is at the EG junction and should be advanced approximately 8 cm. Prior postoperative changes. Normal bowel gas pattern. Significant thoracolumbar curvature convex to theleft. US Renal Complete Non-Vascular Narrative EXAM: US RENAL COMPLETE NON-VASCULAR LOCATION: [facility] DATE: 03/25/2023 INDICATION: BRICE post op abdominal surgery, rule out obstruction COMPARISON: None. TECHNIQUE: Routine Bilateral Renal and Bladder Ultrasound. FINDINGS: RIGHT KIDNEY: 10.2 cm. Normal without hydronephrosis or masses. LEFT KIDNEY: 11.1 cm. Normal without hydronephrosis or masses. BLADDER: Normal. Impression IMPRESSION: 1. Normal kidney ultrasound. Discharge Medications Discharge Medication List as of 03/27/2023 11:53 AM START taking these medications Details oxyCODONE (ROXICODONE) 5 MG tablet Take 0.5-1 tablets (2.5-5 mg) by mouth every 4 hours as needed for severe pain, Disp-10 tablet, R-0, E-Prescribe CONTINUE these medications which have NOT CHANGED Details acetaminophen (TYLENOL) 500 MG tablet Take 500 mg by mouth every 8 hours as needed for mild pain, Historical atorvastatin (LIPITOR) 20 MG tablet Take 20 mg by mouth daily, Historical buPROPion (WELLBUTRIN) 100 MG tablet Take 100 mg by mouth 2 times daily, Historical cetirizine (ZYRTEC) 10 MG tablet Take 10 mg by mouth daily, Historical cyanocobalamin (VITAMIN B-12) 1000 MCG tablet Take 2,000 mcg by mouth daily, Historical gabapentin (NEURONTIN) 300 MG capsule Take 900 mg by mouth 3 times daily, Historical hydrochlorothiazide (HYDRODIURIL) 12.5 MG tablet Take 12.5 mg by mouth daily, Historical levothyroxine (SYNTHROID/LEVOTHROID) 137 MCG tablet Take 137 mcg by mouth daily, Historical losartan (COZAAR) 25 MG tablet Take 50 mg by mouth daily, Historical multivitamin (CENTRUM SILVER) tablet Take 2 tablets by mouth daily, Historical omeprazole (PRILOSEC) [address] capsule Take 40 mg by mouth daily, Historical traMADol (ULTRAM) 25 mg TABS half-tab Take 25 mg by mouth every 6 hours as needed for moderate to severe pain, Historical venlafaxine (EFFEXOR) 75 MG tablet Take 75 mg by mouth 3 times daily, Historical vitamin D3 (CHOLECALCIFEROL) 50 mcg (2000 units) tablet Take 1 tablet by mouth daily, Historical Allergies Allergies Allergen Reactions Droperidol Hallucination Reglan [Metoclopramide] Hallucination Sulfa Antibiotics Rash Patient experienced a rash while using Sulfa-cream product 5 or 6 years ago MING OPERATOR documented in this encounter Medications at Time of Discharge Medication Sig Dispensed Refills Start Date End Date acetaminophen (TYLENOL) 500 MG tablet Take 500 mg by mouth every 8 hours as needed for mild pain 0 atorvastatin (LIPITOR) 20 MG tablet Take 20 mg by mouth daily 0 buPROPion (WELLBUTRIN) 100 MG tablet Take 100 mg by mouth 2 times daily 0 cetirizine (ZYRTEC) 10 MG tablet Take 10 mg by mouth daily 0 cyanocobalamin (VITAMIN B-12) 1000 MCG tablet Take 2,000 mcg by mouth daily 0 gabapentin (NEURONTIN) 300 MG capsule Take 900 mg by mouth 3 times daily 0 hydrochlorothiazide (HYDRODIURIL) 12.5 MG tablet Take 12.5 mg by mouth daily 0 levothyroxine (SYNTHROID/LEVOTHROID) 137 MCG tablet Take 137 mcg by mouth daily 0 losartan (COZAAR) 25 MG tablet Take 50 mg by mouth daily 0 multivitamin (CENTRUM SILVER) tablet Take 2 tablets by mouth daily 0 omeprazole (PRILOSEC) [address] capsule Take 40 mg by mouth daily 0 oxyCODONE (ROXICODONE) 5 MG tabletIndications:SBO (small bowel obstruction) (H) Take 0.5-1 tablets (2.5-5 mg) by mouth every 4 hours as needed for severe pain 10 tablet 0 03/27/2023 traMADol (ULTRAM) 25 mg TABS half-tab Take 25 mg by mouth every 6 hours as needed for moderate to severe pain 0 venlafaxine (EFFEXOR) 75 MG tablet Take 75 mg by mouth 3 times daily 0 vitamin D3 (CHOLECALCIFEROL) 50 mcg (2000 units) tablet Take 1 tablet by mouth daily 0 documented as of this encounter Progress Notes * Suzy Ballesteros RN - 03/27/2023 1:40 PM CST Patient discharged to home via cab. Had left discharge med, oxycodone in room. Nurse had reviewed med and patient signed pharmacy slip. Patient called, unable to get transportation back to hospital. Dr. Simmons notified and med escripted to [place] pharmacy, per patient request. Oxycodone returned to discharge pharmacy. Patient also left Provena pump charging chord. Will send via vice president investor relations to patients home. MING OPERATOR * Darshan Simmons MD - 03/27/2023 11:48 AM CST 40 minutes spent on discharge. I discussed with Ms. Huynh. MING OPERATOR * Daisy Pedraza PA-C - 03/27/2023 9:57 AM CST [facility] General Surgery Progress Note Assessment and Plan: Assessment: Gail Huynh is a 77 year old female 4 Days Post-Op from Procedure(s): LAPAROSCOPY, DIAGNOSTIC, BY GENERAL SURGERY, convert to open, lysis of adhesions, partial mesh explantation, repair of small bowel enterotomy Plan: Pain mgmt: IV dilaudid, Oxycodone, Tylenol available prn Diet: regular diet IVFs: LR @75 mL/hr Activity: as tolerated Prophylaxis: IV Protonix, lovenox Dispo: ok to discharge home today from surgical perspective Provena wound vac to stay in place until Sat or when pt needs to change ostomy bag Interval History: Pt up shower. Feeling good. Tolerating regular diet. Has gas and stool in ostomy bag. Discharge instructions discussed. Physical Exam: Temp: 97.7 ??F (36.5 ??C) Temp src: Temporal BP: (!) 155/66 Pulse: 90 Resp: 18 SpO2: 93 % O2 Device: None (Room air) I/O last 3 completed shifts: In: 5314 [I.V.:5314] Out: 380 [Stool:380] Constitutional: alert and no distress Abdomen: soft non tender. Ostomy: viable, gas and liquid stool in bag Incisions: Provena wound vac in place Data: Data Recent Labs Lab 03/27/23 0631 03/26/23 0654 03/25/23 1656 03/25/23 0654 03/24/23 0704 03/23/23 0619 WBC 6.9 8.1 -- 11.0 14.8* 9.4 HGB 9.2* 8.8* -- 9.1* 10.8* 11.8 MCV 100 96 -- 98 99 97 PLT -- 257 -- 220 210 256 NA 134* 135 -- 133* 136 137 POTASSIUM 4.1 4.6 -- 4.6 4.5 4.3 4.3 CHLORIDE 101 101 -- 98 101 103 CO2 24 26 -- 25 24 24 BUN 15.5 21.8 -- 42.9* 26.1* 20.3 CR 0.84 0.99* -- 1.62* 1.06* 0.91 ANIONGAP 9 8 -- 10 11 10 TIO 8.5* 8.9 -- 8.6* 8.3* 8.4* GLC 102* 121* 119* 106* 89 102* ALBUMIN -- -- -- -- 3.2* 3.7 PROTTOTAL -- -- -- -- 6.1* 6.7 BILITOTAL -- -- -- -- 0.8 0.7 ALKPHOS -- -- -- -- 113 140 ALT -- -- -- -- 58* 95* AST -- -- -- -- 64* 114* Daisy Pedraza PA-C MING OPERATOR * Bernice Stearns MD - 03/26/2023 7:25 PM CST [facility] Hospitalist Progress Note Assessment & Plan Gail Huynh is a 77 year old woman who was admitted on 03/22/2023. PMH significant for hypertension, hyperlipidemia, MVS/AVS, fibromuscular dysplasia of the renal arteries, hypothyroidism, GERD, asthma/COPD, CORAL, pulmonary hypertension, Hx of Adilson en Y gastric bypass, hx colectomy with ileostomy 2/2 ischemic bowel, and hx of recurrent SBOs admitted on 03/22/2023 via direct admission from [place] ER with at least partial SBO and suspicion for ostomy stricture (she has had a prior stricture requiring dilation at [facility] 3 years ago). Patient reported low grade abdominal discomfort for past weeks and then 03/20 noted bilateral lower quadrant pain. She noted no output from her ostomy site and decreased her PO intake, though denied nausea or emesis. CT Imaging without contrast noted fluid filled and distended loops of small bowel leading to site of RLQ ileostomy. Patient was given IV fluids and admitted for further evaluation. Colorectal surgeryinitially consulted, followed by general surgery. 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 Patient underwent 03/23/23 laparoscopy converted to open with lysis of adhesions, partial mesh explantation, and repair of small bowel enterotomy after finding of phytobezoar. - Diet per surgery. - Surgery started Miralax BID for next couple days to ensure enteric fibrous contents are cleared out. - IV fluids being discontinued 03/26. - Continue to have IV hydromorphone available PRN pain. - Possible discharge as soon as 03/27. BRICE, resolved - Creatinine increased from baseline 0.9 to 1.62 on 03/25. - on 03/25 post op, patient noted difficulty urinating, having to push. Had good urine output thereafter. Renal US normal. - Postvoid residuals not elevated. - BRICE resolved with IV fluids, which discontinued 03/26. - Avoid nephrotoxins and renally dose medications. Tachycardia, resolved Noted post-op. EKG sinus tach. No symptoms. See Holter report from 09/2021 without note of arrhythmia. - Improved with IV fluids and pain control. COPD with components of asthma CORAL-patient denies and is not on any nocturnal device Pulmonary hypertension She is not on any inhalers at home. No wheezing on exam. Monitor closely Fibromuscular dysplasia of the renal arteries Hypertension Mussel Opener medications include losartan, furosemide, and recently ordered hydrochlorothiazide (which was not yet started). - BP remains low / well controlled and have not yet resumed. - Continue to monitor. GERD/hypothyroidism Resuming COATER CARBON PAPER levothyroxine. Continue PPI by IV. Prediabetic Hgb A1c 03/2022 was 5.9%. Hx of mitral valve stenosis Hx of aortic valve stenosis Hx of cLVH No e/o decompensation. Peripheral neuropathy Continue po gabapentin Remote hx of a DVT Continue SCDs. Considered subQ heparin addition, however, Hgb trending down slightly and likely discharge as soon as 03/27. Encourage ambulation and follow. Hyperlipidemia Can resume COATER CARBON PAPER atorvastatin on discharge. Depression Continue COATER CARBON PAPER bupropion and venlafaxine as tolerated. History of COVID 19 vaccination S/p 3 shot pfizer series followed by moderna booster 03/2022 (biv) DVT Prophylaxis: Pneumatic Compression Devices Code Status: Full Code Expected discharge: Anticipate hospital stay at least 1 more day pending post-op course. Bernice Stearns MD FACP Hospitalist Service [facility] Securely message with 3nder (more info) Interval History Diet being advanced per surgery. Abdominal pain improving. Has been having some output in ostomy. Renal function improved after BRICE 03/25. Stopping IV fluids. No new complaints, but patient hoping togo home soon. -Data reviewed today: I reviewed all new labs and imaging results over the last 24 hours. Physical Exam Temp: 97.7 ??F (36.5 ??C) Temp src: Temporal BP: 125/54 Pulse: 91 Resp: 16 SpO2: 94 % O2 Device: None (Room air) Vitals: 03/22/23 1557 Weight: 98.3 kg (216 lb 11.4 oz) Vital Signs with Ranges Temp: [97.7 ??F (36.5 ??C)-98.3 ??F (36.8 ??C)] 97.7 ??F (36.5 ??C) Pulse: [91-101] 91 Resp: [16-18] 16 BP: (125-144)/(48-56) 125/54 SpO2: [91 %-95 %] 94 % I/O last 3 completed shifts: In: - Out: 2350 [Urine:700; Stool:1650] Constitutional: Pleasant woman seen resting in bed and watching [email or web address] movie. No acute distress. Alert and oriented. Appears comfortable. HEENT: NCAT. EOMI. Moist oral mucosa. Respiratory: Clear to auscultation bilaterally. No crackles. No wheezes. Cardiovascular: Regular rate and rhythm. Systolic murmur. GI: Soft, appropriately tender post-op. Wound vac in place. Ostomy with air in bag. Normoactive bowel sounds noted. Musculoskeletal: No gross deformities. Neurologic: Alert and oriented x3. No focal neurologic deficits. Did not assess gait. Medications lactated ringers 75 mL/hr at 03/26/23 0734 buPROPion 100 mg Oral BID enoxaparin ANTICOAGULANT 40 mg Subcutaneous Q24H gabapentin 900 mg Oral TID pantoprazole 40 mg Intravenous Daily with breakfast polyethylene glycol 17 g Oral BID sodium chloride (PF) 3 mL Intracatheter Q8H sodium chloride (PF) 3 mL Intracatheter Q8H venlafaxine 75 mg Oral TID Data Recent Labs Lab 03/26/23 0654 03/25/23 1656 03/25/23 0654 03/24/23 0704 03/23/23 0619 WBC 8.1 -- 11.0 14.8* 9.4 HGB 8.8* -- 9.1* 10.8* 11.8 MCV 96 -- 98 99 97 PLT 257 -- 220 210 256 NA 135 -- 133* 136 137 POTASSIUM 4.6 -- 4.6 4.5 4.3 4.3 CHLORIDE 101 -- 98 101 103 CO2 26 -- 25 24 24 BUN 21.8 -- 42.9* 26.1* 20.3 CR 0.99* -- 1.62* 1.06* 0.91 ANIONGAP 8 -- 10 11 10 TIO 8.9 -- 8.6* 8.3* 8.4* GLC 121* 119* 106* 89 102* ALBUMIN -- -- -- 3.2* 3.7 PROTTOTAL -- -- -- 6.1* 6.7 BILITOTAL -- -- -- 0.8 0.7 ALKPHOS -- -- -- 113 140 ALT -- -- -- 58* 95* AST -- -- -- 64* 114* No results found for this or any previous visit (from the past 24 hour(s)). MING OPERATOR * Og Baum RN - 03/26/2023 12:09 PM CST Temp: 97.8 ??F (36.6 ??C) Temp src: Temporal BP: (!) 144/56 Pulse: 99 Resp: 16 SpO2: 91 % O2 Device: None (Room air) Orientation: A&O x4. Forgetful. VS: VSS Pain: Denies pain. Activity: A1 GB walker Resp: RA. Denies SOB GI: Denies nausea and vomiting : Voiding without difficulty Skin: WDL Lines: PIV SL Diet: Regular Labs: Potassium and Mag active Plan: TBD Discharge: TBD MING OPERATOR * Daisy Pedraza PA-C - 03/26/2023 10:43 AM CST [facility] General Surgery Progress Note Assessment and Plan: Assessment: Gail Huynh is a 77 year old female 3 Days Post-Op from Procedure(s): LAPAROSCOPY, DIAGNOSTIC, BY GENERAL SURGERY, convert to open, lysis of adhesions, partial mesh explantation, repair of small bowel enterotomy Plan: Pain mgmt: IV dilaudid, Oxycodone, Tylenol available prn Bowel: miralax bid for 2 days Diet: regular diet IVFs: LR @75 mL/hr Activity: as tolerated Prophylaxis: IV Protonix, lovenox Dispo: doing well surgically, hopefully home tomorrow if continues to tolerate diet and bowel activity Interval History: Pt up in chair. Feeling good today. Reports she typically has to change position to urinate which is normal for her. She has pain with movements which is well controlled. She is tolerating diet with no nausea. She has gas in her ostomy and emptied her bag at least 4 x yesterday. Physical Exam: Temp: 97.8 ??F (36.6 ??C) Temp src: Temporal BP: (!) 144/56 Pulse: 99 Resp: 16 SpO2: 91 % O2 Device: None (Room air) I/O last 3 completed shifts: In: 720 [P.O.:720] Out: 3050 [Urine:1300; Stool:1750] Constitutional: alert and no distress Abdomen: soft non tender. Ostomy: viable, gas in bag, remnants of liquid stool Incisions: Provena wound vac in place Data: Data Recent Labs Lab 03/26/23 0654 03/25/23 1656 03/25/23 0654 03/24/23 0704 03/23/23 0619 WBC 8.1 -- 11.0 14.8* 9.4 HGB 8.8* -- 9.1* 10.8* 11.8 MCV 96 -- 98 99 97 PLT 257 -- 220 210 256 NA 135 -- 133* 136 137 POTASSIUM 4.6 -- 4.6 4.5 4.3 4.3 CHLORIDE 101 -- 98 101 103 CO2 26 -- 25 24 24 BUN 21.8 -- 42.9* 26.1* 20.3 CR 0.99* -- 1.62* 1.06* 0.91 ANIONGAP 8 -- 10 11 10 TIO 8.9 -- 8.6* 8.3* 8.4* GLC 121* 119* 106* 89 102* ALBUMIN -- -- -- 3.2* 3.7 PROTTOTAL -- -- -- 6.1* 6.7 BILITOTAL -- -- -- 0.8 0.7 ALKPHOS -- -- -- 113 140 ALT -- -- -- 58* 95* AST -- -- -- 64* 114* Daisy Pedraza PA-C MING OPERATOR * Bernice Stearns MD - 03/25/2023 9:45 AM CST [facility] Hospitalist Progress Note Assessment & Plan Gail Huynh is a 77 year old woman who was admitted on 03/22/2023. PMH significant for hypertension, hyperlipidemia, MVS/AVS, fibromuscular dysplasia of the renal arteries, hypothyroidism, GERD, asthma/COPD, CORAL, pulmonary hypertension, Hx of Adilson en Y gastric bypass, hx colectomy with ileostomy 2/2 ischemic bowel, and hx of recurrent SBOs admitted on 03/22/2023 via direct admission from [place] [facility] with at least partial SBO and suspicion for ostomy stricture (she has had a prior stricture requiring dilation at [facility] 3 years ago). Patient reported low grade abdominal discomfort for past weeks and then 03/20 noted bilateral lower quadrant pain. She noted no output from her ostomy site and decreased her PO intake, though denied nausea or emesis. CT Imaging without contrast noted fluid filled and distended loops of small bowel leading to site of RLQ ileostomy. Patient was given IV fluids and admitted for further evaluation. Colorectal surgeryinitially consulted, followed by general surgery. 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 Patient underwent 03/23/23 laparoscopy converted to open with lysis of adhesions, partial mesh explantation, and repair of small bowel enterotomy after finding of phytobezoar. - Diet per surgery. Diet has been advanced to clear liquids. - Surgery started Miralax BID for next couple days to ensure enteric fibrous contents are cleared out. - Will continue IV fluids. - Continue to have IV hydromorphone available PRN pain. BRICE - Creatinine has increased from baseline 0.9 to 1.62 on 03/25. - Patient does note that she urinated a good amount this morning. Starting to monitor with strict ins/outs. - She also notes difficulty urinating, having to push. Will obtain renal US to rule out obstruction. Can place Hughes catheter if needed. - PRN bladder scans to assess postvoid residuals. Consider Flomax if evidence of post-op retention. - Continue IV fluids. - Avoid nephrotoxins and renally dose medications. Tachycardia, resolved Noted post-op. Obtaining EKG. No symptoms. See Holter report from 09/2021 without note of arrhythmia. - EKG is sinus tach. Rates have been in low 100s. Will continue IV fluids and pain control at this time. COPD with components of asthma CORAL-patient denies and is not on any nocturnal device Pulmonary hypertension She is not on any inhalers at home. No wheezing on exam. Monitor closely Fibromuscular dysplasia of the renal arteries Hypertension Mussel Opener medications include losartan, furosemide, and recently started hydrochlorothiazide. - BP on low side so will hold at this time. GERD/hypothyroidism Ok to hold levothyroxine for bowel rest temporarily, if becomes prolonged and still not able to take medications easily consider IV at half dosing. Continue PPI by IV. Prediabetic Hgb A1c 03/2022 was 5.9%. Hx of mitral valve stenosis Hx of aortic valve stenosis Hx of cLVH No e/o decompensation. Peripheral neuropathy Cont with po gabapentin as tolerated (pt request) Remote hx of a DVT Continue SCDs. Can discuss addition of subQ heparin tomorrow if OK with surgery. Will monitor Hgb at this time. Hyperlipidemia Will hold her atorvastatin for bowel rest Depression Continue COATER CARBON PAPER bupropion and venlafaxine as tolerated. History of COVID 19 vaccination S/p 3 shot pfizer series followed by moderna booster 03/2022 (biv) DVT Prophylaxis: Pneumatic Compression Devices Code Status: Full Code Expected discharge: Anticipate hospital stay at least several more days pending post-op course and surgery recommendations. Bernice Stearns MD FACP Hospitalist Service [facility] Securely message with 3nder (more info) Interval History Patient's diet has been advanced to clear liquids and she has placed order for breakfast. Reports difficulty urinating and having to push. Abdominal pain is improving. Less output in ostomy since yesterday. Air present in ostomy today. New BRICE with Cr up to 1.62. Otherwise no new complaints or acute events. -Data reviewed today: I reviewed all new labs and imaging results over the last 24 hours. Physical Exam Temp: 97.2 ??F (36.2 ??C) Temp src: Temporal BP: 131/44 Pulse: 96 Resp: 20 SpO2: 93 % O2 Device: None (Room air) Vitals: 03/22/23 1557 Weight: 98.3 kg (216 lb 11.4 oz) Vital Signs with Ranges Temp: [97.2 ??F (36.2 ??C)-97.9 ??F (36.6 ??C)] 97.2 ??F (36.2 ??C) Pulse: [89-100] 96 Resp: [18-20] 20 BP: (128-131)/(44-47) 131/44 SpO2: [93 %-97 %] 93 % I/O last 3 completed shifts: In: - Out: 850 [Stool:850] Constitutional: Pleasant woman seen sitting up in chair waiting for clear liquid breakfast to arrive. Watching TV. Alert and oriented. Appears comfortable. HEENT: NCAT. EOMI. Dry oral mucosa. Respiratory: Clear to auscultation bilaterally. No crackles. No wheezes. Cardiovascular: Regular rate and rhythm. Systolic murmur. GI: Soft, appropriately tender post-op. Wound vac in place. Ostomy with air in bag. Normoactive bowel sounds noted. Musculoskeletal: No gross deformities. Neurologic: Alert and oriented x3. No focal neurologic deficits. Did not assess gait. Medications lactated ringers 75 mL/hr at 03/25/23 0444 buPROPion 100 mg Oral BID gabapentin 900 mg Oral TID pantoprazole 40 mg Intravenous Daily with breakfast polyethylene glycol 17 g Oral BID sodium chloride (PF) 3 mL Intracatheter Q8H sodium chloride (PF) 3 mL Intracatheter Q8H venlafaxine 75 mg Oral TID Data Recent Labs Lab 03/25/23 0654 03/24/23 0704 03/23/23 0619 WBC 11.0 14.8* 9.4 HGB 9.1* 10.8* 11.8 MCV 98 99 97 PLT 220 210 256 NA 133* 136 137 POTASSIUM 4.6 4.5 4.3 4.3 CHLORIDE 98 101 103 CO2 24 BUN 42.9* 26.1* 20.3 CR 1.62* 1.06* 0.91 ANIONGAP 10 11 10 TIO 8.6* 8.3* 8.4* GLC 106* 89 102* ALBUMIN -- 3.2* 3.7 PROTTOTAL -- 6.1* 6.7 BILITOTAL -- 0.8 0.7 ALKPHOS -- 113 140 ALT -- 58* 95* AST -- 64* 114* No results found for this or any previous visit (from the past 24 hour(s)). MING OPERATOR * Tiara Lai MD - 03/25/2023 9:10 AM CST [facility] General Surgery Progress Note Assessment and Plan: Assessment: Gail Huynh is a 77 year old female 2 Days Post-Op from Procedure(s): LAPAROSCOPY, DIAGNOSTIC, BY GENERAL SURGERY, convert to open, lysis of adhesions, partial mesh explantation, repair of small bowel enterotomy Plan: Pain mgmt: IV dilaudid available prn Bowel: miralax bid for 2 days Diet: clear liquid IVFs: LR @75 mL/hr Activity: as tolerated Prophylaxis: IV Protonix, added lovenox 40mg daily Dispo: several days Appears to be doing excellent. Tolerated clears without nausea, interested in more. Will advance tofull liquids Tiara Lai MD Interval History: Pt up in bathroom. Complains of burning with urination, having to bear down/push to urinate. Abdominal pain improved. Had a lot of gas and loose in ostomy yesterday, now slowing down. Denies nausea. Physical Exam: Temp: 97.2 ??F (36.2 ??C) Temp src: Temporal BP: 131/44 Pulse: 96 Resp: 20 SpO2: 93 % O2 Device: None (Room air) I/O last 3 completed shifts: In: - Out: 850 [Stool:850] Constitutional: alert and no distress Abdomen: not examined, on commode, ostomy bag visualize with gas in bag Incisions: Provena wound vac in place Data: Data Recent Labs Lab 03/25/23 0654 03/24/23 0704 03/23/23 0619 WBC 11.0 14.8* 9.4 HGB 9.1* 10.8* 11.8 MCV 98 99 97 PLT 220 210 256 NA 133* 136 137 POTASSIUM 4.6 4.5 4.3 4.3 CHLORIDE 98 101 103 CO2 25 24 24 BUN 42.9* 26.1* 20.3 CR 1.62* 1.06* 0.91 ANIONGAP 10 11 10 TIO 8.6* 8.3* 8.4* GLC 106* 89 102* ALBUMIN -- 3.2* 3.7 PROTTOTAL -- 6.1* 6.7 BILITOTAL -- 0.8 0.7 ALKPHOS -- 113 140 ALT -- 58* 95* AST -- 64* 114* Daisy Jacklyn Pedraza PA-C MING OPERATOR * eBrnice Stearns MD - 03/24/2023 2:00 PM CST [facility] Hospitalist Progress Note Assessment & Plan Gail Huynh is a 77 year old woman who was admitted on 03/22/2023. PMH significant for hypertension, hyperlipidemia, MVS/AVS, fibromuscular dysplasia of the renal arteries, hypothyroidism, GERD, asthma/COPD, CORAL, pulmonary hypertension, Hx of Adilson en Y gastric bypass, hx colectomy with ileostomy 2/2 ischemic bowel, and hx of recurrent SBOs admitted on 03/22/2023 via direct admission from [place] [facility] with at least partial SBO and suspicion for ostomy stricture (she has had a prior stricture requiring dilation at [place] perhaps 3 years ago). Patient reported low grade abdominal discomfort for past weeks and then 03/20 noted bilateral lower quadrant pain. She noted no output from her ostomy site and decreased her PO intake, though denied nausea or emesis. CT Imaging without contrast noted fluid filled and distended loops of small bowel leading to site of RLQ ileostomy. Patient was given IV fluids and admitted for further evaluation. Colorectal surgeryinitially consulted, followed by general surgery. 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 Patient underwent 03/23/23 laparoscopy converted to open with lysis of adhesions, partial mesh explantation, and repair of small bowel enterotomy after finding of phytobezoar. - Diet per surgery. Currently NPO except ice chips with surgery noting that they may advance tomorrow. - Surgery started Miralax BID for next couple days to ensure enteric fibrous contents are cleared out. - Will continue IV fluids. - Continue to have IV hydromorphone available PRN pain. Tachycardia Noted post-op. Obtaining EKG. No symptoms. See Holter report from 09/2021 without note of arrhythmia. - EKG is sinus tach. Rates have been in low 100s. Will continue IV fluids and pain control at this time. COPD with components of asthma CORAL-patient denies and is not on any nocturnal device Pulmonary hypertension She is not on any inhalers at home. No wheezing on exam. Monitor closely Fibromuscular dysplasia of the renal arteries Hypertension Mussel Opener medications include losartan, furosemide, and recently started hydrochlorothiazide. - BP on low side so will hold at this time. GERD/hypothyroidism Ok to hold levothyroxine for bowel rest temporarily, if becomes prolonged and still not able to take medications easily consider IV at half dosing. Continue PPI by IV. Prediabetic Hgb A1c 03/2022 was 5.9%. Hx of mitral valve stenosis Hx of aortic valve stenosis Hx of cLVH No e/o decompensation. Peripheral neuropathy Cont with po gabapentin as tolerated (pt request) Remote hx of a DVT Continue SCDs. Can discuss addition of subQ heparin in coming days post op. Hyperlipidemia Will hold her atorvastatin for bowel rest Depression Continue COATER CARBON PAPER bupropion and venlafaxine as tolerated. History of COVID 19 vaccination S/p 3 shot pfizer series followed by moderna booster 03/2022 (biv) DVT Prophylaxis: Pneumatic Compression Devices Code Status: Full Code Expected discharge: Anticipate hospital stay at least several more days pending post-op course. Bernice Stearns MD FACP Hospitalist Service [facility] Securely message with 3nder (more info) Interval History Post op overnight from extensive surgery with Dr. Villarreal. See op note. Phytobezoar found. Wound vac in place. Pain improved significantly following surgery, though abdomen reported to be sore. Otherwise no acute events or new complaints. Diet per surgery. -Data reviewed today: I reviewed all new labs and imaging results over the last 24 hours. Physical Exam Temp: 97.5 ??F (36.4 ??C) Temp src: Temporal BP: (!) 109/35 Pulse: 103 Resp: 18 SpO2: 94 % O2 Device: None (Room air) Oxygen Delivery: 2 LPM Vitals: 03/22/23 1557 Weight: 98.3 kg (216 lb 11.4 oz) Vital Signs with Ranges Temp: [97.2 ??F (36.2 ??C)-98.7 ??F (37.1 ??C)] 97.5 ??F (36.4 ??C) Pulse: [88-103] 103 Resp: [-] 18 BP: (103-150)/(35-83) 109/35 SpO2: [91 %-100 %] 94 % I/O last 3 completed shifts: In: 1700 [I.V.:1700] Out: - Constitutional: Pleasant woman seen resting in bed and watching [employer] movie. Alert and oriented.Appears much more comfortable than yesterday. HEENT: NCAT. EOMI. Dry oral mucosa. Respiratory: Clear to auscultation bilaterally. No crackles or wheezes. Cardiovascular: Tachycardic, but sounded regular at time of exam. Obtaining EKG. Systolic murmur. GI: Soft, appropriately tender post-op. Wound vac in place. Ostomy with liquid output noted. Normoactive bowel sounds noted. Musculoskeletal: No gross deformities. Neurologic: Alert and oriented x3. No focal neurologic deficits. Did not assess gait. Medications lactated ringers 75 mL/hr at 03/24/23 1136 buPROPion 100 mg Oral BID gabapentin 900 mg Oral TID pantoprazole 40 mg Intravenous Daily with breakfast sodium chloride (PF) 3 mL Intracatheter Q8H sodium chloride (PF) 3 mL Intracatheter Q8H venlafaxine 75 mg Oral TID Data Recent Labs Lab 03/24/23 0704 03/23/23 0619 03/22/23 1705 WBC 14.8* 9.4 8.1 HGB 10.8* 11.8 11.2* MCV 99 97 97 PLT 210 256 231 NA 136 137 134* POTASSIUM 4.5 4.3 4.3 4.4 CHLORIDE 101 103 101 CO2 24 24 28 BUN 26.1* 20.3 21.3 CR 1.06* 0.91 0.93 ANIONGAP 11 10 5* TIO 8.3* 8.4* 8.3* GLC 89 102* 106* ALBUMIN 3.2* 3.7 -- PROTTOTAL 6.1* 6.7 -- BILITOTAL 0.8 0.7 -- ALKPHOS 113 140 -- ALT 58* 95* -- AST 64* 114* -- Recent Results (from the past 24 hour(s)) XR Abdomen Port 1 View Narrative EXAM: XR ABDOMEN PORT 1 VIEW LOCATION: [facility] DATE: 03/24/2023 INDICATION: confirm NG placement for decompression COMPARISON: None. Impression IMPRESSION: NG tube side-port is at the EG junction and should be advanced approximately 8 cm. Prior postoperative changes. Normal bowel gas pattern. Significant thoracolumbar curvature convex to theleft. MING OPERATOR * Cody Villarreal MD - 03/24/2023 9:35 AM CST [facility] General Surgery Progress Note Assessment and Plan: Assessment: Gail Huynh is a 77 year old female 1 Day Post-Op from Procedure(s): LAPAROSCOPY, DIAGNOSTIC, BY GENERAL SURGERY, convert to open, lysis of adhesions, partial mesh explantation, repair of small bowel enterotomy Plan: Pain mgmt: IV dilaudid available prn Diet: NPO except ice chips IVFs: LR @75 mL/hr Activity: as tolerated Prophylaxis: IV Protonix Dispo: several days NG out today. Ice chips ok will advance diet tomorrow if continues to have ostomy output. Start BID miralax for next two days to ensure enteric fibrous contents are cleared out. Interval History: Pt resting in bed. Complains of pain at incision site and some right sided abdominal cramping pain.No nausea. She does have gas and loose stool in her ostomy bag. Physical Exam: Temp: 97.5 ??F (36.4 ??C) Temp src: Temporal BP: (!) 109/35 Pulse: 103 Resp: 18 SpO2: 94 % O2 Device: None (Room air) Oxygen Delivery: 2 LPM I/O last 3 completed shifts: In: 1700 [I.V.:1700] Out: - Constitutional: alert and no distress Abdomen: soft, tenderness along right side of abdomen and incision site Incisions: Provena wound vac in place Data: Data Recent Labs Lab 03/24/23 0704 03/23/23 0619 03/22/23 1705 WBC 14.8* 9.4 8.1 HGB 10.8* 11.8 11.2* MCV 99 97 97 PLT 210 256 231 NA 136 137 134* POTASSIUM 4.5 4.3 4.3 4.4 CHLORIDE 101 103 101 CO2 24 24 28 BUN 26.1* 20.3 21.3 CR 1.06* 0.91 0.93 ANIONGAP 11 10 5* TIO 8.3* 8.4* 8.3* GLC 89 102* 106* ALBUMIN 3.2* 3.7 -- PROTTOTAL 6.1* 6.7 -- BILITOTAL 0.8 0.7 -- ALKPHOS 113 140 -- ALT 58* 95* -- AST 64* 114* -- Daisy Pedraza PA-C MING OPERATOR * Abdirizak Mullins RN - 03/23/2023 11:10 PM CST Pt arrived from PACU via cart around 2230. On 2L O2. Reoriented to room. MING OPERATOR * Bernice Stearns MD - 03/23/2023 9:54 AM CST [facility] Hospitalist Progress Note Assessment & Plan Gali Huynh is a 77 year old woman who was admitted on 03/22/2023. PMH significant for hypertension, hyperlipidemia, MVS/AVS, fibromuscular dysplasia of the renal arteries, hypothyroidism, GERD, asthma/COPD, CORAL, pulmonary hypertension, Hx of Adilson en Y gastric bypass, hx colectomy with ileostomy 2/2 ischemic bowel, and hx of recurrent SBOs admitted on 03/22/2023 via direct admission from [place] [facility] with at least partial SBO and suspicion for ostomy stricture (she has had a prior stricture requiring dilation at [facility] 3 years ago). Patient reported low grade abdominal discomfort for past weeks and then 03/20 noted bilateral lower quadrant pain. She noted no output from her ostomy site and decreased her PO intake, though denied nausea or emesis. CT Imaging without contrast noted fluid filled and distended loops of small bowel leading to site of RLQ ileostomy. Patient was given IV fluids and admitted for further evaluation. Colorectal surgeryinitially consulted, followed by general surgery. Problem List: SBO, concern for ostomy stricture/obstruction Hx of Adilson en Y gastric bypass Hx of colectomy complicated by recurrent SBOs related to adhesions CT findings suggest that the area at issue is her ostomy site and may require dilation. - Appreciate general surgery evaluation. - Continue NPO at this time. - LR at 75 ml/hour. - NG per surgery. - Increasing PRN IV hydromorphone to 0.6 mg IV every 2 hours PRN severe pain at this time. COPD with components of asthma CORAL-patient denies and is not on any nocturnal device Pulmonary hypertension She is not on any inhalers at home. No wheezing on exam. Monitor closely Fibromuscular dysplasia of the renal arteries Htn Mussel Opener medications include losartan, furosemide, and recently started hydrochlorothiazide. - BP on low side so will hold at this time. GERD/hypothyroidism Ok to hold levothyroxine for bowel rest temporarily, if becomes prolonged and still not able to take medications easily consider IV at half dosing. Continue PPI by IV. Prediabetic Hgb A1c 03/2022 was 5.9%. Hx of mitral valve stenosis Hx of aortic valve stenosis Hx of cLVH No e/o decompensation. Peripheral neuropathy Cont with po gabapentin as tolerated (pt request) Remote hx of a DVT PCDs for ppx in case surgery warranted Hlp Will hold her atorvastatin for bowel rest Depression Continue COATER CARBON PAPER bupropion and venlafaxine as tolerated. History of COVID 19 vaccination S/p 3 shot pfizer series followed by moderna booster 03/2022 (biv) DVT Prophylaxis: Pneumatic Compression Devices Code Status: Full Code Expected discharge: Anticipate hospital stay at least several more days pending clinical improvement. Bernice Stearns MD FACP Hospitalist Service [facility] Securely message with 3nder (more info) Interval History Patient with increased pain this morning. Serosanguinous output from ostomy with red rubber tube inplace. Increasing available PRN IV hydromorphone and general surgery is evaluating. Continue NPO status. -Data reviewed today: I reviewed all new labs and imaging results over the last 24 hours. Physical Exam Temp: 97.3 ??F (36.3 ??C) Temp src: Temporal BP: 131/48 Pulse: 93 Resp: 16 SpO2: 93 % O2 Device: None (Room air) Vitals: 03/22/23 1557 Weight: 98.3 kg (216 lb 11.4 oz) Vital Signs with Ranges Temp: [97.2 ??F (36.2 ??C)-97.6 ??F (36.4 ??C)] 97.3 ??F (36.3 ??C) Pulse: [75-98] 93 Resp: [16-18] 16 BP: (100-131)/(47-80) 131/48 SpO2: [93 %-94 %] 93 % I/O last 3 completed shifts: In: 483 [P.O.:55; IV Piggyback:428] Out: - Constitutional: Pleasant woman seen this morning. Alert and oriented x3. Appears to be in significant pain at time of exam. HEENT: NCAT. EOMI. Moist oral mucosa. Respiratory: Clear to auscultation bilaterally. No crackles or wheezes. Cardiovascular: Regular rate and rhythm. Systolic murmur. GI: Abdomen diffusely tender this morning with an episode of severe pain. Not particularly distended, but areas of firmness in epigastric and right side. Red rubber noted in ostomy with serosanguinous output noted. Hypoactive bowel sounds. Musculoskeletal: No gross deformities. Neurologic: Alert and oriented x3. No focal neurologic deficits. Did not assess gait. Medications lactated ringers 75 mL/hr at 03/23/23 0933 buPROPion 100 mg Oral BID gabapentin 900 mg Oral TID pantoprazole 40 mg Intravenous Daily with breakfast sodium chloride (PF) 3 mL Intracatheter Q8H venlafaxine 75 mg Oral TID Data Recent Labs Lab 03/23/23 0619 03/22/23 1705 WBC 9.4 8.1 HGB 11.8 11.2* MCV 97 97 PLT 256 231 NA 137 134* POTASSIUM 4.3 4.3 4.4 CHLORIDE 103 101 CO2 24 28 BUN 20.3 21.3 CR 0.91 0.93 ANIONGAP 10 5* TIO 8.4* 8.3* GLC 102* 106* ALBUMIN 3.7 -- PROTTOTAL 6.7 -- BILITOTAL 0.7 -- ALKPHOS 140 -- ALT 95* -- AST 114* -- No results found for this or any previous visit (from the past 24 hour(s)). MING OPERATOR * Josey Jefferson MD - 03/22/2023 6:06 PM CST Ms. Huynh was transferred for CRS evaluation. In brief, she is a 77 year old woman with a complex past surgical history presenting with presumed recurrent SBO. I do not have any of her records, but she tells me in 2004 she had a total abdominal colectomy for colon twisting with an end ileostomy. Subsequently, she underwent a Adilson en Y gastric bypass for weight loss, and 1 or 2 ventral hernia repairs. She is well-appearing and comfortable at my evaluation. She is not nauseous nor has she vomited. She has colicky abdominal pain, but her abdomen is soft, she is minimally tender and not peritoneal. Ostomy is pink, and I am able to traverse the lumen down to the fascia. I left a red rubber in place.She reports last ostomy output was 1-2 days ago. She has been told in the past that she has a stricture at her ileum, by a physician at [place], and that she may need dilation. Her imaging is not available for review. No urgent surgical needs identified. Additionally, no colorectal surgery needs identified, as the patient has a possible small bowel obstruction, more likely to be associated with her prior RNYGB, and as such will defer management to general surgery. Discussed with colorectal surgery attending, Dr. Fabian. Josey Jefferson MD Colorectal Surgery Fellow MING OPERATOR documented in this encounter H&P Notes * Radha Blood MD - 03/22/2023 4:25 PM CST History and Physical Gail Huynh Date of : 1945 Age: [age] year old Date of Admission: 03/22/2023 Primary care provider: No primary care provider on file. Assessment and Plan: Summary of Stay: Gail Huynh is a 77 year old female with a history of hlp/htn, MVS/AVS, fibromuscular dysplasia of the renal arteries,hypothyroidism, GERd, asthma/COPD, CORAL, pulmonary hypertension, Hx of Adilson en Y gastric bypass, hx colectomy with ileostomy 2/2 ischemic bowel, and hx of recurrent SBOs admitted on 03/22/2023 via direct admission from [place] ER with at least partial SBO and suspicion for ostomy stricture (she has had a prior stricture requiring dilation at [place] perhaps 3years ago) She had been in her usual state of health up until about 2 days ago when she noticed some bilateralLQ pain. She had decreased po without n/v (she doesn't do that) and no output from her ostomy site. She denies any f/c/s, no cp/sob, no other concerns ER VSS Per report that accompanies patient belly with diffuse tenderness without rebound or guarding BMP: wnl with bun/creat 21/0.8 LFTs mildly elevated with ast/alt 53/44. Lipase 292 (wnl) CBC wnl UA negative CT abd/pelvis without contrast: stomach and small bowel with fluid filled distended and dilated loops measuring up to 4.6 cm extending towards the RLQ ileostomy. This becomes decompressed as the small bowel traverses the ostomy site. Small about of mesenteric edema abutting the bowel just prior to the ostomy. 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 She is transferred to our facility for CRS consultation. She's quite pleasant although abdominal exam is concerning- it' is relatively soft but she clearly has some rebound to the RLQ and is exquisitely tender Problem List: SBO, concern for ostomy stricture/obstruction Hx of Adilson en Y gastric bypass Hx of colectomy complicated by recurrent SBOs related to adhesions CT findings suggest that the area at issue is her ostomy site and it probably needs dilation. -admit to IP -CRS consult -NPO x meds, IV pain control, IV antiemetics, IVF -belly exam appears to have progressed- senthil bmp/lactate/cbc tonight - f/unit(s) labs reassuring, lactate 0.9, BMP and CBC normal/stable COPD/asthma CORAL-patient denies and is not on any nocturnal device Pulmonary hypertension She is not on any inhalers at home. No wheezing on exam. Monitor closely Fibromuscular dysplasia of the renal arteries Htn Mussel Opener looks to be on both losartan, furosemide, and to start hydrochlorothiazide recently -hold all, BPs on the low side and would hold diuretics in the setting of NPO/recent poor po GERD/hypothyroidism Ok to hold levothyroxine for bowel rest temporarily, if becomes prolonged and still not able to take medications easily consider IV at half dosing Resumed PPI by IV Prediabetic BGs look good -ck BG bid x 4 and notify MD if > 180 Hx of mitral valve stenosis Hx of aortic valve stenosis Hx of cLVH No e/o decompensation Peripheral neuropathy Cont with po gabapentin as tolerated (pt request) Remote hx of a DVT PCDs for ppx in case surgery warranted Hlp Will hold her atorvastatin for bowel rest Depression 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 Ambulates on her own Hughes: not needed Access: PIV Time spent 79 minutes reviewing notes/labs/prior hx, current medications. 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 She had decreased po without n/v (she doesn't do that) and no output from her ostomy site. She denies any f/c/s, no cp/sob, no other concerns ER VSS Per report that accompanies patient belly with diffuse tenderness without rebound or guarding BMP: wnl with bun/creat 21/0.8 LFTs mildly elevated with ast/alt 53/44. Lipase 292 (wnl) CBC wnl UA negative CT abd/pelvis without contrast: stomach and small bowel with fluid filled distended and dilated loops measuring up to 4.6 cm extending towards the RLQ ileostomy. This becomes decompressed as the small bowel traverses the ostomy site. Small about of mesenteric edema abutting the bowel just prior to the ostomy. 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 She is transferred to our facility for CRS consultation. She's quite pleasant although abdominal exam is concerning- it' is relatively soft but she clearly has some rebound to the RLQ and is exquisitely tender The history is obtained in discussion with the patient Epic and Care everywhere were extensively reviewed Past Medical History: Past Medical History: Diagnosis Date Aortic stenosis Benign essential hypertension COPD (chronic obstructive pulmonary disease) (H) Depression DVT (deep venous thrombosis) (H) 1972 details unknown Fibromuscular dysplasia of renal artery (H24) Gastric varices hx of bleeding, no hx of liver dz, alcohol misuse Gastroesophageal reflux disease with esophagitis History of Adilson-en-Y gastric bypass Hyperlipidemia LDL goal <100 Hypothyroidism Mitral valve stenosis, non-rheumatic CORAL (obstructive sleep apnea) pt denies, is not on CPAP PMR (polymyalgia rheumatica) (H24) not on treatment Pre-diabetes Past Surgical History: Past Surgical History: Procedure Laterality Date CARPAL TUNNEL RELEASE RT/LT COLECTOMY TOTAL ? ischemic bowel LAP VENTRAL HERNIA REPAIR REPLACEMENT TOTAL KNEE Bilateral ADILSON EN Y BOWEL Social History: Social History Tobacco Use Smoking status: Never Smokeless tobacco: Not on file Substance Use Topics Alcohol use: Yes Comment: rare Family History: Family History Problem Relation Age of Onset Cataracts Mother Ulcerative Colitis Mother Cataracts Father Ulcerative Colitis Brother Allergies: Allergies Allergen Reactions Droperidol Hallucination Reglan [Metoclopramide] Hallucination Sulfa Antibiotics Rash Patient experienced a rash while using Sulfa-cream product 5 or 6 years ago Medications: Prior to Admission medications Medication Sig Last Dose Taking? Auth Provider Hand Shaker End Date acetaminophen (TYLENOL) 500 MG tablet Take 500 mg by mouth every 8 hours as needed for mild pain 03/22/2023 at AM Yes Unknown, Entered By History atorvastatin (LIPITOR) 20 MG tablet Take 20 mg by mouth daily 03/21/2023 at PM Yes Unknown, EnteredBy History Yes buPROPion (WELLBUTRIN) 100 MG tablet Take 100 mg by mouth 2 times daily 03/22/2023 at AM Yes Unknown, Entered By History Yes cetirizine (ZYRTEC) 10 MG tablet Take 10 mg by mouth daily 03/21/2023 Yes Unknown, Entered By History cyanocobalamin (VITAMIN B-12) 1000 MCG tablet Take 2,000 mcg by mouth daily 03/21/2023 at Noon Yes Unknown, Entered By History gabapentin (NEURONTIN) 300 MG capsule Take 900 mg by mouth 3 times daily 03/22/2023 at AM Yes Unknown, Entered By History Yes HYDROCHLOROTHIAZIDE PO Take by mouth daily New RX has not taken yet Yes Unknown, Entered By HistoryYes levothyroxine (SYNTHROID/LEVOTHROID) 137 MCG tablet Take 137 mcg by mouth daily 03/22/2023 at AM Yes Unknown, Entered By History Yes losartan (COZAAR) 25 MG tablet Take 50 mg by mouth daily 03/21/2023 at PM Yes Unknown, Entered By History Yes multivitamin (CENTRUM SILVER) tablet Take 2 tablets by mouth daily 03/21/2023 Yes Unknown, Entered By History omeprazole (PRILOSEC) [address] capsule Take 40 mg by mouth daily 03/22/2023 at AM Yes Unknown, Entered By History traMADol (ULTRAM) 25 mg TABS half-tab Take 25 mg by mouth every 6 hours as needed for moderate to severe pain Yes Unknown, Entered By History venlafaxine (EFFEXOR) 75 MG tablet Take 75 mg by mouth 3 times daily 03/22/2023 at AM Yes Unknown, Entered By History Yes vitamin D3 (CHOLECALCIFEROL) 50 mcg (2000 units) tablet Take 1 tablet by mouth daily 03/21/2023 at Noon Yes Unknown, Entered By History Review of Systems: A Comprehensive greater than 10 system review of systems was carried out. Pertinent positives and negatives are noted above. Otherwise negative for contributory information. Physical Exam: Blood pressure 100/80, pulse 75, temperature 97.6 ??F (36.4 ??C), temperature source Temporal, resp. rate 18, weight 98.3 kg (216 lb 11.4 oz), SpO2 94%. Exam: General: Pleasant nad looks stated age HEENT: Head nc/at sclera clear PERRL O/P: Moist mucus membranes no posterior pharyngeal erythema orexudate. Neck is supple Lungs: cta b nl effort CV: RRR 2/'6 brisk LAKISHA no r/g at most trace le edema Abd: belly is soft in the TLQ, when I push around the umbilicus it rebounds to the RLQ. She is exquisitely tender just to the right of her ostomy site Neuro: Cn 2-12 grossly intact and strength is intact in b ue and le Alert and oriented affect appropriate Skin: W/d no c/c Data: See HPI for condensed version of labs obtained at [facility] MING OPERATOR documented in this encounter Consult Notes * Lisa Rivas RN - 03/27/2023 11:05 AM CSTAssociated Order(s): CARE MANAGEMENT / SOCIAL WORK IP CONSULT Care Management Discharge Note Discharge Date: 03/27/2023 Discharge Disposition: home Discharge Services: Discharge DME: Discharge Transportation: [employer] Private pay costs discussed: transportation costs Education Provided on the Discharge Plan: yes Persons Notified of Discharge Plans: patient Patient/Family in Agreement with the Plan: yes Additional Information: CM was informed patient needs assistance with transportation home at discharge. Per transmitter engineer in charge, patient is anticipated to discharge today. Per bedside RN patient is appropriate for taxi transport. CM met with patient at the bedside who denied having any family/friends that can provide transportationback to her home. She denied ability to pay for taxi transportation. She confirmed her residence [facility] in [place] and stated she will be able to get into facility when she returns. She stated moreno is planning to stay with her for a couple nights. CM will assist with [employer] set up, bedside RN informed. Addendum 1328: CM confirmed patient's home address in [place] and set up [employer] to patient's home address. CM reinforced importance of attending follow up appts and patient verbalized understanding and stated she can arrange transport to get to follow up appts. Lisa Rivas RN, BSN Inpatient Care Coordination [facility] [phone] MING OPERATOR * Cody Villarreal MD - 03/23/2023 4:51 PM CSTAssociated Order(s): SURGERY GENERAL IP CONSULT General Surgery Consultation Gail Huynh Age: [age] year old Date of : 1945 Date of Admission: 03/22/2023 Reason for consult: Small bowel obstruction Requesting physician: Dr. Blood Assessment and Plan: Assessment: Gail Huynh is a 77 year old female with history of total colectomy with end ileostomy, multiple ventral hernia repairs, previous adilson-en-y bypass , now admitted with a small bowel obstruction. Comorbidities: has a past medical history of Aortic stenosis, Benign essential hypertension, COPD (chronic obstructive pulmonary disease) (H), Depression, DVT (deep venous thrombosis) (H) (1972), Fibromuscular dysplasia of renal artery (H2), Gastric varices, Gastroesophageal reflux disease with esophagitis, History of Adilson-en-Y gastric bypass, Hyperlipidemia LDL goal <100, Hypothyroidism, Mitral valve stenosis, non-rheumatic, CORAL (obstructive sleep apnea), PMR (polymyalgia rheumatica) (H24), and Pre-diabetes. Plan: NG was placed Patient with significant SB dilation seen on imaging. Due to dilation and significant distention and tenderness seen on exam will proceed urgently to the operating room for diagnostic laparoscopy possible laparotomy and possible bowel resection as well as other indicated procedures. Lengthy discussion with patient regarding possible operative findings including /necrotic bowel. If small portion and able to resect will perform this. If large segment which would essentially benon-compatible with life would close and provide comfort. Patient has transition point on CT and hopeuflly will be able to fix this spot with minimal disturbance. Patient aware of risks of surgery and potential prolonged hospitalization post op and risks of complications. She would like to proceed. Chief Complaint: Abdominal pain History is obtained from the patient and medical chart History of Present Illness: Gail Huynh is a 77 year old female presented with recurrent SBO. Patient states this is much more severe pain zavala that previous SBO have been. She states any movement causes severe pain. Patient states this is a change from earlier in her admission when pain was present but not as severe. Shefeels like it has grown significantly without relief. She has had no ostomy output. Red rubber catheter was placed per colorectal surgery when seen at admission.No nausea/vomiting but states she doesn't have much of that since her bypass. Past Medical History: Past Medical History: Diagnosis Date Aortic stenosis Benign essential hypertension COPD (chronic obstructive pulmonary disease) (H) Depression DVT (deep venous thrombosis) (H) 1972 details unknown Fibromuscular dysplasia of renal artery (H24) Gastric varices hx of bleeding, no hx of liver dz, alcohol misuse Gastroesophageal reflux disease with esophagitis History of Adilson-en-Y gastric bypass Hyperlipidemia LDL goal <100 Hypothyroidism Mitral valve stenosis, non-rheumatic CORAL (obstructive sleep apnea) pt denies, is not on CPAP PMR (polymyalgia rheumatica) (H24) not on treatment Pre-diabetes Past Surgical History: Past Surgical History: Procedure Laterality Date CARPAL TUNNEL RELEASE RT/LT COLECTOMY TOTAL ? ischemic bowel LAP VENTRAL HERNIA REPAIR REPLACEMENT TOTAL KNEE Bilateral ADILSON EN Y BOWEL Social History: Social History Tobacco Use Smoking status: Never Smokeless tobacco: Not on file Substance Use Topics Alcohol use: Yes Comment: rare Family History: Family History Problem Relation Age of Onset Cataracts Mother Ulcerative Colitis Mother Cataracts Father Ulcerative Colitis Brother Allergies: Allergies Allergen Reactions Droperidol Hallucination Reglan [Metoclopramide] Hallucination Sulfa Antibiotics Rash Patient experienced a rash while using Sulfa-cream product 5 or 6 years ago Medications: No current facility-administered medications on file prior to encounter. acetaminophen (TYLENOL) 500 MG tablet, Take 500 mg by mouth every 8 hours as needed for mild pain atorvastatin (LIPITOR) 20 MG tablet, Take 20 mg by mouth daily buPROPion (WELLBUTRIN) 100 MG tablet, Take 100 mg by mouth 2 times daily cetirizine (ZYRTEC) 10 MG tablet, Take 10 mg by mouth daily cyanocobalamin (VITAMIN B-12) 1000 MCG tablet, Take 2,000 mcg by mouth daily gabapentin (NEURONTIN) 300 MG capsule, Take 900 mg by mouth 3 times daily HYDROCHLOROTHIAZIDE PO, Take by mouth daily levothyroxine (SYNTHROID/LEVOTHROID) 137 MCG tablet, Take 137 mcg by mouth daily losartan (COZAAR) 25 MG tablet, Take 50 mg by mouth daily multivitamin (CENTRUM SILVER) tablet, Take 2 tablets by mouth daily omeprazole (PRILOSEC) [address] capsule, Take 40 mg by mouth daily traMADol (ULTRAM) 25 mg TABS half-tab, Take 25 mg by mouth every 6 hours as needed for moderate to severe pain venlafaxine (EFFEXOR) 75 MG tablet, Take 75 mg by mouth 3 times daily vitamin D3 (CHOLECALCIFEROL) 50 mcg (2000 units) tablet, Take 1 tablet by mouth daily buPROPion 100 mg Oral BID cefOXitin 1 g Intravenous Half Section Ironer to OR gabapentin 900 mg Oral TID pantoprazole 40 mg Intravenous Daily with breakfast sodium chloride (PF) 3 mL Intracatheter Q8H venlafaxine 75 mg Oral TID Review of Systems: The 10 point review of systems is negative other than noted in the HPI. Physical Exam: BP 130/52 (BP Location: Right arm) Pulse 91 Temp 97.6 ??F (36.4 ??C) (Temporal) Resp 18 Ht 1.6 m (5' 3) Wt 98.3 kg (216 lb 11.4 oz) SpO2 91% BMI 38.39 kg/m?? General - Well developed, well nourished female in no apparent distress Eyes: no scleral icterus or redness Lymphatic: No cervical, or supraclavicular lymphadenopathy Lungs: Clear to auscultation bilaterally Heart: regular rate and rhythm, no murmurs Abdomen:tense, distended, distended with severe tenderness noted diffusely. Well healed surgical scars and ileostomy with minimal serosanguinous output MSK: Extremities warm without edema Neurologic: nonfocal Psychiatric: Mood and affect appropriate Skin: Without lesions, rashes, or jaundice Data: Labs reviewed Imaging: All imaging studies reviewed by me and my interpretation of the CT abd/pelvis is: significant SB dilation with transition point and fecalization of the SB with mesenteric edema. S/p colectomy/gastricbypass Cody Villarreal MD 03/23/2023 4:36 PM Time spent with the patient, reviewing the EMR, reviewing laboratory and imaging studies, counseling and coordinating care: 92 minutes. MING OPERATOR documented in this encounter Miscellaneous Notes * Care Plan - Clemencia Ballesteros RN - 03/27/2023 12:04 PM CST Discharge instructions given, iv removed. Filled meds given for home use. Patient will take taxi home arranged through . MING OPERATOR * Plan of Care - Danielle Jimenez RN - 03/27/2023 6:07 AM CST Goal Outcome Evaluation: Plan of Care Reviewed With: patient Overall Patient Progress: improving A&O x 4. Ambulating in hallway with SBA, GB, walker. Abdominal incision CDI. Prevena wound vac.VSS on RA. Voiding, PVR 188 ml. Soft, formed output + gas in ostomy. + bowel sounds. Tolerating regular diet. No nausea or vomiting. Minimal pain- PRN Oxy. IV fluids stopped. K+, mag protocol. Possible discharge today-pt states she needs assistance with transportation home. MING OPERATOR * Plan of Care - Danielle Jimenez RN - 03/26/2023 7:01 AM CST Goal Outcome Evaluation: Plan of Care Reviewed With: patient Overall Patient Progress: improving A&O x 4. Tolerating full liquid diet. No complaints of pain. LR at 75 ml/hr. VSS on RA. Afebrile. Prevena wound vac. Colostomy. 1A, GB, walker. Straight cath for 700 x 1. Last PVR 180 ml. Discharge plan pending. MING OPERATOR * Care Plan - Kushal Hickman RN - 03/25/2023 11:19 PM CST Time of Care: [id number] Orientation: A/O x 4 VS: BP 100/41 (BP Location: Right arm) Pulse 104 Temp 96.9 ??F (36.1 ??C) (Temporal) Resp 18 Ht 1.6 m (5' 3) Wt 98.3 kg (216 lb 11.4 oz) SpO2 94% BMI 38.39 kg/m?? Activity: Ax 1 w & GB Resp: WNL GI: Pt. Has colostomy emptied x2 : voided, Bladder scan for 292, Straight cath 600ml. Lines: PIV- Infusing LR @ 75ml/hr Diet: Full Liquids Discharge: TBD MING OPERATOR * Plan of Care - Serenity Morataya RN - 03/25/2023 11:24 AM CST Aox4. Able to communicate needs well. VSS. On RA. Rated abdominal pain 4/10 but declined intervention at this time. Abdomen soft. Tender. Abdominal incision intact. Prevena drain in place with no output. Colostomy in place with good output. No N/V or chest pain. On clear liquid. Had renal ultra sound today. Up with A1 gait belt and walker. Calm and pleasant with cares. Will continue to provide supportive care. MING OPERATOR * Plan of Care - Danielle Jimenez RN - 03/25/2023 6:41 AM CST Goal Outcome Evaluation: Plan of Care Reviewed With: patient Overall Patient Progress: improving A&O x 4. NPO w/ exception of ice chips. LR at 75 ml/hr. VSS on RA. Afebrile. Midline abdominal incision CDI. Prevena wound vac in place. Ambulating with 1A, GB, walker. No nausea or vomiting. Good bowel sounds. Gas and liquid brown stool in ostomy- 400 ml. Voiding. Pain managed with PRN IV dilaudid. Discharge plan pending. MING OPERATOR * Plan of Care - Nevin Rizvi RN - 03/24/2023 5:44 PM CST Goal Outcome Evaluation: Plan of Care Reviewed With: patient Overall Patient Progress: improving A & Ox4, able to make needs known. NPO ice chips ok. A1 w/walker and gait belt. Colostomy with good output. Pain minimal today, only one dose of 0.2 dilaudid given. Provena wound vac in place. LRrunning at 75ml/hr. Miralax started today for two days. NG removed. Tachycardic, provider ordered EKG, done today. MING OPERATOR * Plan of Care - Abdirizak Mullins RN - 03/24/2023 12:45 AM CST Goal Outcome Evaluation: Plan of Care Reviewed With: patient Overall Patient Progress: improvingOverall Patient Progress: improving Pt A\Ox4, VSS on 2L O2. Pain managed with PRN IV dilaudid x2. Not OOB this shift d/t pain. Prevena wound vac on abd incision. 1x lap site covered in bandaid. BS hypoactive, not passing gas. Purewick in place, no void, bl scan for 205 at 0500. NG tube clamped. LR at 75. NPO with ice chips. Plan TBD. MING OPERATOR * Op Note - Cody Villarreal MD - 03/23/2023 6:58 PM CST General Surgery Operative Note Pre-operative diagnosis: SBO Post-operative diagnosis: same Procedure: Diagnostic laparoscopy, converted to open laparostomy, extensive lysis of adhesions, removal of small bowel phytobezoar through small bowel enterotomy, repair of small bowel enterotomy, revision of ileostomy fascial exit, peritoneal lavage Surgeon: Cody Villarreal MD Reception Centre Manager(s): Daisy Pedraza PA-C The Physician Reception Centre Manager was medically necessary for their expertise in prepping, suctioning, suturing and retraction. Anesthesia: General Estimated blood loss: 50 cc Specimens: None FINDINGS: Significant adhesions, frozen abdomen requiring extensive adhesiolysis to locate small bowel, knuckle of small bowel just proximal to ileostomy with phytobezoar and tight stricture at fascial exit of ostomy. INDICATIONS: 77 yo female with hx of total colectomy, adilson-en-y gastric bypass and prior incisionalhernia repair admitted with SBO. CT showing significant SB dilation with twist at ostomy. Patient throughout morning developed increasing pain until severe without relief. Due to increased pain and firm abdomen decision was made to take urgently to OR. DESCRIPTION OF PROCEDURE: The patient was taken to the operating room and placed on the table in supine position and secured to the table with safety straps. General anesthesia was induced and the abdomen was prepped and draped in standard sterile fashion. A small incision was made at palmers point. A 5mm visiport was used to gain access to the abdomen. There were no apparent injuries and the abdomen was insuflated to 12mmHg. A wall of omentum and small bowel which was adhered to the anterior abdominal wall was encountered. After multiple attempts were were unable to clear space for a second trocar to gain access. Thus a longitudinal incision was made with a ten blade in the upper abdomen. The incision was carried down to the fascia. The fascia was incised with the Bovie electrocautery. A mesh was encountered that was incorporated into the patient tissue. The was cut through using a #10 blade. We entered theperitoneal cavity slowly and encountered significant adhesions. These adhesions required over hour of lysis just to locate a few short segments of small bowel. We were able to trace one significantlydilated loop up to a knuckle that was kinked upon itself just proximal to the ileostomy. All the visible bowel did appear healthy as viable. We did try milking the small bowel to the ileostomy but the contents were firm and unable to be expelled. We digitized the ostomy and again were unable to expel the small bowel contents. The fascial opening was significantly strictured and therefore the fascial defect was enlarged allowing easy passage of two finger breaths through the defect. A small bowel enterotomy was made and the contents which appeared to be a phytobezoar were removed. We emptied roughly 600mL -1L of contents until the small bowel contents were of liquid consistency. We then changed gloves and closed the enterotomy. Thecontents were all emptied into a kidney basin and thus had minimal contamination. The wound/abdomenwas irrigated with 2L of saline. As this seemed to relieve pressure and all visible bowel appeared intact a decision was made to close, rather than risk unwanted bowel injury as we felt the issue wasresolved. The abdomen was closed with running prolene suture as we were suturing mesh to mesh. We infiltrated the wound with local anesthetic. And closed the wound with miguelito. A prevena wound vac was placed over the stapled incision and a fresh ileostomy bag was placed over her pink stoma. The patient tolerated the procedure well. Sponge and instrument counts were correct at the end of the case. Cody Villarreal MD MING OPERATOR * Plan of Care - Nevin Rizvi RN - 03/23/2023 5:16 PM CST Goal Outcome Evaluation: Plan of Care Reviewed With: patient Overall Patient Progress: no change A & Ox4, able to make needs known. NPO except meds. A1 w/walker & gait belt. Voiding adequately. Small amount of clear-blood tinged liquid in colostomy this am. Surgery consult done, ordered NG for decompression set to LIS. NG placed, marked at 50cm. Reporting severe pain 8-9/10 in lower abdomen, PRN dilaudid given 0.6 Q2. Surgery scheduled for this evening, bath/CHG wipes done. Report given to pre-op, pt transferred down @ 1630. MING OPERATOR * Plan of Care - Malinda Graves RN - 03/23/2023 6:16 AM CST Goal Outcome Evaluation: Plan of Care Reviewed With: patient Overall Patient Progress: no changeOverall Patient Progress: no change Pt A/O x4. VSS. PIV SL. Pain managed with IV dilaudid. Assist x1 with walker and gait belt. Voidingwell. NPO status. CMS at baseline. Baseline neuropathy in BLE. Stoma to RLQ pink; some mucus outputover night. Plan TBD, colorectal and general surgery consulted. MING OPERATOR * Provider Notification - Malinda Graves RN - 03/23/2023 4:53 AM TRIMMING OPERATOR 0453: Provider notified that pt have increase abd pain. Receiving IV dilaudid. Due to frequency unable to give dose at this time. Pt c/o gas pain. NPO. Orders? MING OPERATOR * Plan of Care - Daksha Mejia RN - 03/22/2023 10:06 PM CST Goal Outcome Evaluation: Vital signs stable. Bowel sounds absent, no flatus, no stool in ostomy appliance. Denies nausea, iv infusing.Npo. Pain controlled with iv dilaudid. Colorectal surgery consult in am. Care plan reviewed with pt. MING OPERATOR * Pharmacy-Admission Medication History - Souleymane Naylor - 03/22/2023 4:54 PM TRIMMING OPERATOR Transit Proof Machine Operator Admission Medication History Admission medication history is complete. The information provided in this note is only as accurateas the sources available at the time of the update. Information Source(s): Patient and CareEverywhere/SureScripts via in-person Pertinent Information: None Changes made to [employer] medication list: Added: All Deleted: None Changed: None Medication Affordability:No Allergies reviewed with patient and updates made in EHR: yes Medication History Completed By: Souleymane Naylor 03/22/2023 4:54 PM Prior to Admission medications Medication Sig Last Dose Taking? Auth Provider Hand Shaker End Date acetaminophen (TYLENOL) 500 MG tablet Take 500 mg by mouth every 8 hours as needed for mild pain 03/22/2023 at AM Yes Unknown, Entered By History atorvastatin (LIPITOR) 20 MG tablet Take 20 mg by mouth daily 03/21/2023 at PM Yes Unknown, EnteredBy History Yes buPROPion (WELLBUTRIN) 100 MG tablet Take 100 mg by mouth 2 times daily 03/22/2023 at AM Yes Unknown, Entered By History Yes cetirizine (ZYRTEC) 10 MG tablet Take 10 mg by mouth daily 03/21/2023 Yes Unknown, Entered By History cyanocobalamin (VITAMIN B-12) 1000 MCG tablet Take 2,000 mcg by mouth daily 03/21/2023 at Noon Yes Unknown, Entered By History gabapentin (NEURONTIN) 300 MG capsule Take 900 mg by mouth 3 times daily 03/22/2023 at AM Yes Unknown, Entered By History Yes HYDROCHLOROTHIAZIDE PO Take by mouth daily New RX has not taken yet Yes Unknown, Entered By HistoryYes levothyroxine (SYNTHROID/LEVOTHROID) 137 MCG tablet Take 137 mcg by mouth daily 03/22/2023 at AM Yes Unknown, Entered By History Yes losartan (COZAAR) 25 MG tablet Take 50 mg by mouth daily 03/21/2023 at PM Yes Unknown, Entered By History Yes multivitamin (CENTRUM SILVER) tablet Take 2 tablets by mouth daily 03/21/2023 Yes Unknown, Entered By History omeprazole (PRILOSEC) [address] capsule Take 40 mg by mouth daily 03/22/2023 at AM Yes Unknown, Entered By History traMADol (ULTRAM) 25 mg TABS half-tab Take 25 mg by mouth every 6 hours as needed for moderate to severe pain Yes Unknown, Entered By History venlafaxine (EFFEXOR) 75 MG tablet Take 75 mg by mouth 3 times daily 03/22/2023 at AM Yes Unknown, Entered By History Yes vitamin D3 (CHOLECALCIFEROL) 50 mcg (2000 units) tablet Take 1 tablet by mouth daily 03/21/2023 at Noon Yes Unknown, Entered By History MING OPERATOR Associated attestation - Azeem Tomlin RPH - 03/22/2023 6:34 PM TRIMMING OPERATOR Although I was not present for the interview, nor did I personally see the patient, to my knowledgethe manager of internal has compiled the [employer] medication list to the best of their ability given the information available at the time. Patient has NEW med that she hasn't started taking yet hydrochlorothiazide (will call pharmacy to find dose/sig). Azeem Tomlin RPH documented in this encounter Plan of Treatment Not on file documented as of this encounter Procedures Procedure Name Priority Date/Time Associated Diagnosis Comments RBC AND PLATELET MORPHOLOGY Routine 03/27/2023 6:31 AM TRIMMING OPERATOR CBC WITH PLATELETS AND DIFFERENTIAL Routine 03/27/2023 6:31 AM TRIMMING OPERATOR CBC WITH PLATELETS & DIFFERENTIAL Routine 03/27/2023 6:31 AM TRIMMING OPERATOR MAGNESIUM Routine 03/27/2023 6:31 AM TRIMMING OPERATOR BASIC METABOLIC PANEL Routine 03/27/2023 6:31 AM TRIMMING OPERATOR CBC WITH PLATELETS AND DIFFERENTIAL Routine 03/26/2023 6:54 AM TRIMMING OPERATOR CBC WITH PLATELETS & DIFFERENTIAL Routine 03/26/2023 6:54 AM TRIMMING OPERATOR MAGNESIUM Routine 03/26/2023 6:54 AM TRIMMING OPERATOR BASIC METABOLIC PANEL Routine 03/26/2023 6:54 AM TRIMMING OPERATOR GLUCOSE BY METER Routine 03/25/2023 4:56 PM TRIMMING OPERATOR US RENAL COMPLETE NON-VASCULAR Routine 03/25/2023 11:14 AM TRIMMING OPERATOR CBC WITH PLATELETS AND DIFFERENTIAL Routine 03/25/2023 6:54 AM TRIMMING OPERATOR CBC WITH PLATELETS & DIFFERENTIAL Routine 03/25/2023 6:54 AM TRIMMING OPERATOR MAGNESIUM Routine 03/25/2023 6:54 AM TRIMMING OPERATOR BASIC METABOLIC PANEL Routine 03/25/2023 6:54 AM TRIMMING OPERATOR EKG 12-LEAD, TRACING ONLY Routine 03/24/2023 3:35 PM TRIMMING OPERATOR CBC WITH PLATELETS AND DIFFERENTIAL Routine 03/24/2023 7:04 AM TRIMMING OPERATOR CBC WITH PLATELETS & DIFFERENTIAL Routine 03/24/2023 7:04 AM TRIMMING OPERATOR PHOSPHORUS Routine 03/24/2023 7:04 AM TRIMMING OPERATOR MAGNESIUM Routine 03/24/2023 7:04 AM TRIMMING OPERATOR HEPATIC FUNCTION PANEL Routine 7:04 AM TRIMMING OPERATOR BASIC METABOLIC PANEL Routine 03/24/2023 7:04 AM TRIMMING OPERATOR XR ABDOMEN PORT 1 VIEW Routine 12:29 AM TRIMMING OPERATOR LAPAROSCOPY, DIAGNOSTIC, BY GENERAL SURGERY 03/23/2023 6:19 PM TRIMMING OPERATOR SBO (small bowel obstruction) (H) POTASSIUM Routine 03/23/2023 6:19 AM TRIMMING OPERATOR MAGNESIUM Routine 03/23/2023 6:19 AM TRIMMING OPERATOR COMPREHENSIVE METABOLIC PANEL Routine 03/23/2023 6:19 AM TRIMMING OPERATOR CBC WITH PLATELETS Routine 03/23/2023 6: 19 AM TRIMMING OPERATOR LACTIC ACID WHOLE BLOOD STAT 03/22/2023 5:05 PM TRIMMING OPERATOR BASIC METABOLIC PANEL STAT 03/22/2023 5:05 PM TRIMMING OPERATOR CBC WITH PLATELETS STAT 03/22/2023 5: 05 PM TRIMMING OPERATOR documented in this encounter Results * (ABNORMAL) RBC and Platelet Morphology (03/27/2023 6:31 AM TRIMMING OPERATOR) Platelet Assessment Platelets Clumped(A) Automated Count Confirmed. Platelet morphology is normal. 03/27/2023 7:27 AM TRIMMING OPERATOR [facility] Acanthocytes 03/27/2023 7:27 AM TRIMMING OPERATOR [facility] Merrill Rods 03/27/2023 7:27 AM TRIMMING OPERATOR [facility] Basophilic Stippling 03/27/2023 7:27 AM TRIMMING OPERATOR [facility] Bite Cells 03/27/2023 7:27 AM TRIMMING OPERATOR [facility] Blister Cells 03/27/2023 7:27 AM TRIMMING OPERATOR [facility] Monroe Cells 03/27/2023 7:27 AM TRIMMING OPERATOR [facility] Elliptocytes 03/27/2023 7:27 AM TRIMMING OPERATOR [facility] Hgb C Crystals 03/27/2023 7:27 AM TRIMMING OPERATOR [facility] [place] Bodies 03/27/2023 7:27 AM TRIMMING OPERATOR [facility] Hypersegmented Neutrophils 03/27/2023 7:27 AM TRIMMING OPERATOR [facility] Polychromasia 03/27/2023 7:27 AM TRIMMING OPERATOR [facility] RBC agglutination 023 7:27 AM TRIMMING OPERATOR [facility] RBC Fragments 03/27/2023 7:27 AM TRIMMING OPERATOR [facility] Reactive Lymphocytes 03/27/2023 7:27 AM TRIMMING OPERATOR [facility] Rouleaux 03/27/2023 7:27 AM TRIMMING OPERATOR [facility] Sickle Cells 03/27/2023 7:27 AM TRIMMING OPERATOR [facility] Smudge Cells 03/27/2023 7:27 AM TRIMMING OPERATOR [facility] Spherocytes 03/27/2023 7:27 AM TRIMMING OPERATOR [facility] Stomatocytes 03/27/2023 7:27 AM TRIMMING OPERATOR [facility] Target Cells 03/27/2023 7:27 AM TRIMMING OPERATOR [facility] Teardrop Cells 03/27/2023 7:27 AM TRIMMING OPERATOR [facility] Toxic Neutrophils 023 7:27 AM TRIMMING OPERATOR [facility] RBC Morphology Confirmed RBC Indices 03/27/2023 7:27 AM TRIMMING OPERATOR [facility] Blood STRUCTURE OF RIGHT UPPER LIMB / Unknown Venipuncture / Unknown 03/27/2023 6:31 AM TRIMMING OPERATOR 03/27/2023 6:39 AM TRIMMING OPERATOR Bernice Stearns MD LAB - BLOOD ORDER MILE [facility] Acute Care Lab [address] Lab (1st floor, no room number) [place] [address], [facility] [phone] * (ABNORMAL) CBC with platelets and differential (03/27/2023 6:31 AM TRIMMING OPERATOR) WBC Count 6.9 4.0 - 11.0 10e3/uL 03/27/2023 7:29 AM TRIMMING OPERATOR [facility] RBC Count 2.95(L) 3.80 - 5.20 10e6/uL 03/27/2023 7:29 AM TRIMMING OPERATOR [facility] Hemoglobin 9.2(L) 11.7 - 15.7 g/dL 03/27/2023 7:29 AM TRIMMING OPERATOR [facility] Hematocrit 29.6(L) 35.0 - 47.0 % 03/27/2023 7:29 AM TRIMMING OPERATOR [facility] MCV 100 78 - 100 fL 03/27/2023 7:29 AM TRIMMING OPERATOR [facility] MCH 31.2 26.5 - 33.0 pg 03/27/2023 7:29 AM TRIMMING OPERATOR [facility] MCHC 31.1(L) 31.5 - 36.5 g/dL 03/27/2023 7:29 AM TRIMMING OPERATOR [facility] RDW 13.9 10.0 - 15.0 % 03/27/2023 7:29 AM TRIMMING OPERATOR [facility] Platelet Count 03/27/2023 7:29 AM TRIMMING OPERATOR [facility] Comment:Platelets Clumped-Pl atelet Count Not Available % Neutrophils 62 % 03/27/2023 7:29 AM TRIMMING OPERATOR [facility] % Lymphocytes 21 % 03/27/2023 7:29 AM TRIMMING OPERATOR [facility] % Monocytes 14 % 03/27/2023 7:29 AM TRIMMING OPERATOR [facility] % Eosinophils 1 % 03/27/2023 7:29 AM TRIMMING OPERATOR [facility] % Basophils 1 % 03/27/2023 7:29 AM TRIMMING OPERATOR [facility] % Immature Granulocytes 1 % 03/27/2023 7:29 AM TRIMMING OPERATOR [facility] NRBCs per 100 WBC 0 <1 /100 023 7:29 AM TRIMMING OPERATOR [facility] Absolute Neutrophils 4.4 1.6 - 8.3 10e3/uL 03/27/2023 7:29 AM TRIMMING OPERATOR [facility] Absolute Lymphocytes 1.4 0.8 - 5.3 10e3/uL 03/27/2023 7:29 AM TRIMMING OPERATOR [facility] Absolute Monocytes 0.9 0.0 - 1.3 10e3/uL 03/27/2023 7:29 AM TRIMMING OPERATOR [facility] Absolute Eosinophils 0.0 0.0 - 0.7 10e3/uL 03/27/2023 7:29 AM TRIMMING OPERATOR [facility] Absolute Basophils 0.0 0.0 - 0.2 10e3/uL 03/27/2023 7:29 AM TRIMMING OPERATOR [facility] Absolute Immature Granulocytes 0.1 <=0.4 10e3/uL 03/27/2023 7:29 AM TRIMMING OPERATOR [facility] Absolute NRBCs 0.0 10e3/uL 03/27/2023 7:29 AM TRIMMING OPERATOR [facility] Blood STRUCTURE OF RIGHT UPPER LIMB / Unknown Venipuncture / Unknown 03/27/2023 6:31 AM TRIMMING OPERATOR 03/27/2023 6:39 AM TRIMMING OPERATOR Bernice Stearns MD LAB - BLOOD ORDER MILE [facility] Acute Care Lab [address] Lab (1st floor, no room number) [place] [address], [facility] [phone] * (ABNORMAL) Basic metabolic panel (03/27/2023 6:31 AM TRIMMING OPERATOR) Sodium 134(L) 135 - 145 mmol/L 03/27/2023 6:59 AM TRIMMING OPERATOR [facility] Comment:Reference intervals for this test were updated on 01/24/2023 to more accurately reflect our healthy population. There may be differences in the flagging of prior results with similar values performed with this method. Interpretation of those prior results can be made in the context of the updated reference intervals. Potassium 4.1 3.4 - 5.3 mmol/L 03/27/2023 6:59 AM [facility] Chloride 101 98 - 107 mmol/L 03/27/2023 6:59 AM [facility] Carbon Dioxide (CO2) 24 22 - 29 mmol/L 03/27/2023 6:59 AM [facility] Anion Gap 9 7 - 15 mmol/L 03/27/2023 6:59 AM [facility] Urea Nitrogen 15.5 8.0 - 23.0 mg/dL 03/27/2023 6:59 AM [facility] Creatinine 0.84 0.51 - 0.95 mg/dL 03/27/2023 6:59 AM [facility] GFR Estimate 72 >60 mL/min/1. 73m2 03/27/2023 6:59 AM [facility] Calcium 8.5(L) 8.8 - 10.2 mg/dL 03/27/2023 6:59 AM [facility] Glucose 102(H) 70 - 99 mg/dL 03/27/2023 6:59 AM TRIMMING OPERATOR LABORATORY Blood STRUCTURE OF RIGHT UPPER LIMB / Unknown Venipuncture / Unknown 03/27/2023 6:31 AM TRIMMING OPERATOR 03/27/2023 6:39 AM TRIMMING OPERATOR Bernice Stearns MD LAB - BLOOD ORDER MILE [facility] Acute Care Lab [address] [facility] Lab (1st floor, no room number) [place] [address] [phone] * (ABNORMAL) Magnesium (03/27/2023 6:31 AM TRIMMING OPERATOR) Magnesium 1.6(L) 1.7 - 2.3 mg/dL 03/27/2023 6:59 AM TRIMMING OPERATOR LABORATORY Blood STRUCTURE OF RIGHT UPPER LIMB / Unknown Venipuncture / Unknown 03/27/2023 6:31 AM TRIMMING OPERATOR 03/27/2023 6:39 AM TRIMMING OPERATOR Fransisco Licea MD LAB - BLOOD ORDERA BLES [facility] Acute Care Lab [address] Lab (1st floor, no room number) [place] [address], [facility] [phone] * (ABNORMAL) CBC with platelets and differential (03/26/2023 6:54 AM TRIMMING OPERATOR) WBC Count 8.1 4.0 - 11.0 10e3/uL 03/26/2023 7:06 AM TRIMMING OPERATOR [facility] RBC Count 2.80(L) 3.80 - 5.20 10e6/uL 03/26/2023 7:06 AM TRIMMING OPERATOR [facility] Hemoglobin 8.8(L) 11.7 - 15.7 g/dL 03/26/2023 7:06 AM TRIMMING OPERATOR [facility] Hematocrit 27.0(L) 35.0 - 47.0 % 03/26/2023 7:06 AM TRIMMING OPERATOR [facility] MCV 96 78 - 100 fL 03/26/2023 7:06 AM TRIMMING OPERATOR [facility] MCH 31.4 26.5 - 33.0 pg 03/26/2023 7:06 AM TRIMMING OPERATOR [facility] MCHC 32.6 31.5 - 36.5 g/dL 03/26/2023 7:06 AM TRIMMING OPERATOR [facility] RDW 13.6 10.0 - 15.0 % 03/26/2023 7:06 AM TRIMMING OPERATOR [facility] Platelet Count 257 150 - 450 10e3/uL 03/26/2023 7:06 AM TRIMMING OPERATOR [facility] % Neutrophils 73 % 03/26/2023 7:06 AM TRIMMING OPERATOR [facility] % Lymphocytes 14 % 03/26/2023 7:06 AM TRIMMING OPERATOR [facility] % Monocytes 12 % 03/26/2023 7:06 AM TRIMMING OPERATOR [facility] % Eosinophils 0 % 03/26/2023 7:06 AM TRIMMING OPERATOR [facility] % Basophils 0 % 03/26/2023 7:06 AM TRIMMING OPERATOR [facility] % Immature Granulocytes 1 % 03/26/2023 7:06 AM TRIMMING OPERATOR [facility] NRBCs per 100 WBC 0 <1 /100 023 7:06 AM TRIMMING OPERATOR [facility] Absolute Neutrophils 5.9 1.6 - 8.3 10e3/uL 03/26/2023 7:06 AM TRIMMING OPERATOR [facility] Absolute Lymphocytes 1.1 0.8 - 5.3 10e3/uL 03/26/2023 7:06 AM TRIMMING OPERATOR [facility] Absolute Monocytes 0.9 0.0 - 1.3 10e3/uL 03/26/2023 7:06 AM TRIMMING OPERATOR [facility] Absolute Eosinophils 0.0 0.0 - 0.7 10e3/uL 03/26/2023 7:06 AM TRIMMING OPERATOR [facility] Absolute Basophils 0.0 0.0 - 0.2 10e3/uL 03/26/2023 7:06 AM TRIMMING OPERATOR [facility] Absolute Immature Granulocytes 0.1 <=0.4 10e3/uL 03/26/2023 7:06 AM TRIMMING OPERATOR LABORATORY Absolute NRBCs 0.0 10e3/uL 03/26/2023 7:06 AM TRIMMING OPERATOR LABORATORY Blood STRUCTURE OF RIGHT UPPER LIMB / Unknown Venipuncture / Unknown 03/26/2023 6:54 AM TRIMMING OPERATOR 03/26/2023 7:02 AM TRIMMING OPERATOR Bernice Stearns MD LAB - BLOOD ORDER MILE [facility] Lab [address] Lab (1st floor, no room number) [place] [address], [facility] [phone] * Magnesium (03/26/2023 6:54 AM TRIMMING OPERATOR) Magnesium 1.8 1.7 - 2.3 mg/dL 03/26/2023 7:22 AM TRIMMING OPERATOR LABORATORY Blood STRUCTURE OF RIGHT UPPER LIMB / Unknown Venipuncture / Unknown 03/26/2023 6:54 AM TRIMMING OPERATOR 03/26/2023 7:02 AM TRIMMING OPERATOR Bernice Stearns MD LAB - BLOOD ORDER MILE [facility] Acute Care Lab [address] Lab (1st floor, no room number) [place] [address], [facility] [phone] * (ABNORMAL) Basic metabolic panel (03/26/2023 6:54 AM TRIMMING OPERATOR) Sodium 135 135 - 145 mmol/L 03/26/2023 7:22 AM [facility] Comment:Reference intervals for this test were updated on 01/24/2023 to more accurately reflect our healthy population. There may be differences in the flagging of prior results with similar values performed with this method. Interpretation of those prior results can be made in the context of the updated reference intervals. Potassium 4.6 3.4 - 5.3 mmol/L 03/26/2023 7:22 AM [facility] Chloride 101 98 - 107 mmol/L 03/26/2023 7:22 AM [facility] Carbon Dioxide (CO2) 26 22 - 29 mmol/L 03/26/2023 7:22 AM [facility] Anion Gap 8 7 - 15 mmol/L 03/26/2023 7:22 AM [facility] Urea Nitrogen 21.8 8.0 - 23.0 mg/dL 03/26/2023 7:22 AM [facility] Creatinine 0.99(H) 0.51 - 0.95 mg/dL 03/26/2023 7:22 AM [facility] GFR Estimate 59(L) >60 mL/min/1. 73m2 03/26/2023 7:22 AM [facility] Calcium 8.9 8.8 - 10.2 mg/dL 03/26/2023 7:22 AM [facility] Glucose 121(H) 70 - 99 mg/dL 03/26/2023 7:22 AM [facility] Blood STRUCTURE OF RIGHT UPPER LIMB / Unknown Venipuncture / Unknown 03/26/2023 6:54 AM TRIMMING OPERATOR 03/26/2023 7:02 AM [facility] Bernice Stearns MD LAB - BLOOD ORDER MILE LAB[facility] Acute Care Lab [address] [facility] Lab (1st floor, no room number) [place] [address], [facility] [phone] * (ABNORMAL) Glucose by meter (03/25/2023 4:56 PM TRIMMING OPERATOR) GLUCOSE BY METER POCT 119(H) 70 - 99 mg/dL 03/25/2023 5:04 PM TRIMMING OPERATOR LABORATORY POC Blood, Capillary BLOOD SPECIMEN / Unknown 03/25/2023 4:56 PM TRIMMING OPERATOR 03/25/2023 5:04 PM TRIMMING OPERATOR Fransisco Licea MD LAB - [facility] POCT [facility] Acute Care Lab [address] Lab (1st floor, no room number) [place] [address], [facility] [phone] * US Renal Complete Non-Vascular (03/25/2023 11:14 AM TRIMMING OPERATOR) Anatomical Region Laterality Modality Abdomen/Pelvis Ultrasound 03/25/2023 11:1 4 AM TRIMMING OPERATOR Impressions 03/25/2023 3:04 PM TRIMMING OPERATOR IMPRESSION: 1. ??Normal kidney ultrasound. Narrative 03/25/2023 3:04 PM TRIMMING OPERATOR EXAM: US RENAL COMPLETE NON-VASCULAR LOCATION: [facility] DATE: 03/25/2023 INDICATION: BRICE post op abdominal surgery, rule out obstruction COMPARISON: None. TECHNIQUE: Routine Bilateral Renal and Bladder Ultrasound. FINDINGS: RIGHT KIDNEY: 10.2 cm. Normal without hydronephrosis or masses. LEFT KIDNEY: 11.1 cm. Normal without hydronephrosis or masses. BLADDER: Normal. Procedure Note Kirby Diamond MD - 03/25/2023 EXAM: US RENAL COMPLETE NON-VASCULAR LOCATION: [facility] DATE: 03/25/2023 INDICATION: BRICE post op abdominal surgery, rule out obstruction COMPARISON: None. TECHNIQUE: Routine Bilateral Renal and Bladder Ultrasound. FINDINGS: RIGHT KIDNEY: 10.2 cm. Normal without hydronephrosis or masses. LEFT KIDNEY: 11.1 cm. Normal without hydronephrosis or masses. BLADDER: Normal. IMPRESSION: 1. Normal kidney ultrasound. Bernice Stearns MD IMG US ORDERABLES * (ABNORMAL) CBC with platelets and differential (03/25/2023 6:54 AM TRIMMING OPERATOR) WBC Count 11.0 4.0 - 11.0 10e3/uL 03/25/2023 7:25 AM TRIMMING OPERATOR [facility] RBC Count 2.90(L) 3.80 - 5.20 10e6/uL 03/25/2023 7:25 AM TRIMMING OPERATOR [facility] Hemoglobin 9.1(L) 11.7 - 15.7 g/dL 03/25/2023 7:25 AM TRIMMING OPERATOR [facility] Hematocrit 28.3(L) 35.0 - 47.0 % 03/25/2023 7:25 AM TRIMMING OPERATOR [facility] MCV 98 78 - 100 fL 03/25/2023 7:25 AM TRIMMING OPERATOR [facility] MCH 31.4 26.5 - 33.0 pg 03/25/2023 7:25 AM TRIMMING OPERATOR [facility] MCHC 32.2 31.5 - 36.5 g/dL 03/25/2023 7:25 AM TRIMMING OPERATOR [facility] RDW 13.8 10.0 - 15.0 % 03/25/2023 7:25 AM TRIMMING OPERATOR [facility] Platelet Count 220 150 - 450 10e3/uL 03/25/2023 7:25 AM TRIMMING OPERATOR [facility] % Neutrophils 74 % 03/25/2023 7:25 AM TRIMMING OPERATOR [facility] % Lymphocytes 11 % 03/25/2023 7:25 AM TRIMMING OPERATOR [facility] % Monocytes 14 % 03/25/2023 7:25 AM TRIMMING OPERATOR [facility] % Eosinophils 0 % 03/25/2023 7:25 AM TRIMMING OPERATOR [facility] % Basophils 0 % 03/25/2023 7:25 AM TRIMMING OPERATOR [facility] % Immature Granulocytes 1 % 03/25/2023 7:25 AM TRIMMING OPERATOR [facility] NRBCs per 100 WBC 0 <1 /100 023 7:25 AM TRIMMING OPERATOR [facility] Absolute Neutrophils 8.2 1.6 - 8.3 10e3/uL 03/25/2023 7:25 AM TRIMMING OPERATOR [facility] Absolute Lymphocytes 1.2 0.8 - 5.3 10e3/uL 03/25/2023 7:25 AM TRIMMING OPERATOR [facility] Absolute Monocytes 1.5(H) 0.0 - 1.3 10e3/uL 03/25/2023 7:25 AM TRIMMING OPERATOR [facility] Absolute Eosinophils 0.0 0.0 - 0.7 10e3/uL 03/25/2023 7:25 AM TRIMMING OPERATOR [facility] Absolute Basophils 0.0 0.0 - 0.2 10e3/uL 03/25/2023 7:25 AM TRIMMING OPERATOR [facility] Absolute Immature Granulocytes 0.1 <=0.4 10e3/uL 03/25/2023 7:25 AM TRIMMING OPERATOR [facility] Absolute NRBCs 0.0 10e3/uL 03/25/2023 7:25 AM TRIMMING OPERATOR LABORATORY Blood STRUCTURE OF RIGHT HAND / Unknown Venipuncture / Unknown 03/25/2023 6:54 AM TRIMMING OPERATOR 03/25/2023 7:22 AM TRIMMING OPERATOR Bernice Stearns MD LAB - BLOOD ORDER MILE LABORATORY [facility] Acute Care Lab [address] [facility] Lab (1st floor, no room number) [place] [address], [facility] [phone] * (ABNORMAL) Basic metabolic panel (03/25/2023 6:54 AM TRIMMING OPERATOR) Sodium 133(L) 135 - 145 mmol/L 03/25/2023 7:41 AM [facility] Comment:Reference intervals for this test were updated on 01/24/2023 to more accurately reflect our healthy population. There may be differences in the flagging of prior results with similar values performed with this method. Interpretation of those prior results can be made in the context of the updated reference intervals. Potassium 4.6 3.4 - 5.3 mmol/L 03/25/2023 7:41 AM [facility] Chloride 98 98 - 107 mmol/L 03/25/2023 7:41 AM [facility] Carbon Dioxide (CO2) 25 22 - 29 mmol/L 03/25/2023 7:41 AM [facility] Anion Gap 10 7 - 15 mmol/L 03/25/2023 7:41 AM [facility] Urea Nitrogen 42.9(H) 8.0 - 23.0 mg/dL 03/25/2023 7:41 AM [facility] Creatinine 1.62(H) 0.51 - 0.95 mg/dL 03/25/2023 7:41 AM [facility] GFR Estimate 33(L) >60 mL/min/1. 73m2 03/25/2023 7:41 AM [facility] Calcium 8.6(L) 8.8 - 10.2 mg/dL 03/25/2023 7:41 AM [facility] Glucose 106(H) 70 - 99 mg/dL 03/25/2023 7:41 AM [facility] Blood STRUCTURE OF RIGHT HAND / Unknown Venipuncture / Unknown 03/25/2023 6:54 AM TRIMMING OPERATOR 03/25/2023 7:22 AM TRIMMING OPERATOR Bernice Stearns MD LAB - BLOOD ORDER MILE [facility] [address] Lab (1st floor, no room number) [place] [address], [facility] [phone] * Magnesium (03/25/2023 6:54 AM TRIMMING OPERATOR) Magnesium 1.8 1.7 - 2.3 mg/dL 03/25/2023 7:42 AM [facility] Blood STRUCTURE OF RIGHT HAND / Unknown Venipuncture / Unknown 03/25/2023 6:54 AM TRIMMING OPERATOR 03/25/2023 7:22 AM TRIMMING OPERATOR Bernice Stearns MD LAB - BLOOD ORDER MILE Performing Organization Address City/[facility]/ZIP Co de Phone Number [facility] [address] Lab (1st floor, no room number) [place] [address], [facility] [phone] * EKG 12-lead, tracing only (03/24/2023 3:35 PM TRIMMING OPERATOR) Systolic Blood Pressure mmHg RADIOLOGY RESULTS Diastolic Blood Pressure mmHg RADIOLOGY RESULTS Ventricular Rate 102 BPM RAD IOLOGY RESULTS Atrial Rate 102 BPM RADIOLOG Y RESULTS [place] Interval 178 ms RADIOLOG Y RESULTS QRS Duration 88 ms RADIOLO GY RESULTS QT 354 ms RADIOLOGY RESULTS QTc 461 ms RADIOLOGY RESULTS P [place] 72 degrees RADIOLOGY RESULTS R AXIS 75 degrees RADIOLOGY RESULTS T [place] 74 degrees RADIOLOGY RESULTS Interpretation ECG Sinus tachycardia Possible Left atrial enlargement Cannot rule out Anterior infarct , age undetermined Abnormal ECG No previous ECGs available IVCD in inferior leads Confirmed by MD TERRI, MERRILL ([id number]), newspaper managing editor Tremaine Brown ([id number]) on 03/27/2023 11:15:18 AM RADIOLOGY RESULTS 03/24/2023 3:35 PM TRIMMING OPERATOR 03/27/2023 11:15 AM TRIMMING OPERATOR Bernice Stearns MD ECG ORDERABLES RADIOLOGY RESULTS * (ABNORMAL) CBC with platelets and differential (03/24/2023 7:04 AM TRIMMING OPERATOR) WBC Count 14.8(H) 4.0 - 11.0 10e3/uL 03/24/2023 7:25 AM TRIMMING OPERATOR [facility] RBC Count 3.40(L) 3.80 - 5.20 10e6/uL 03/24/2023 7:25 AM TRIMMING OPERATOR [facility] Hemoglobin 10.8(L) 11.7 - 15.7 g/dL 03/24/2023 7:25 AM TRIMMING OPERATOR [facility] Hematocrit 33.7(L) 35.0 - 47.0 % 03/24/2023 7:25 AM TRIMMING OPERATOR [facility] MCV 99 78 - 100 fL 03/24/2023 7:25 AM TRIMMING OPERATOR [facility] MCH 31.8 26.5 - 33.0 pg 03/24/2023 7:25 AM TRIMMING OPERATOR [facility] MCHC 32.0 31.5 - 36.5 g/dL 03/24/2023 7:25 AM TRIMMING OPERATOR [facility] RDW 13.6 10.0 - 15.0 % 03/24/2023 7:25 AM TRIMMING OPERATOR [facility] Platelet Count 210 150 - 450 10e3/uL 03/24/2023 7:25 AM TRIMMING OPERATOR [facility] % Neutrophils 85 % 03/24/2023 7:25 AM TRIMMING OPERATOR [facility] % Lymphocytes 5 % 03/24/2023 7:25 AM TRIMMING OPERATOR [facility] % Monocytes 10 % 03/24/2023 7:25 AM TRIMMING OPERATOR [facility] % Eosinophils 0 % 03/24/2023 7:25 AM TRIMMING OPERATOR [facility] % Basophils 0 % 03/24/2023 7:25 AM TRIMMING OPERATOR [facility] % Immature Granulocytes 0 % 03/24/2023 7:25 AM TRIMMING OPERATOR [facility] NRBCs per 100 WBC 0 <1 /100 11/24/2 023 7:25 AM TRIMMING OPERATOR [facility] Absolute Neutrophils 12.6(H) 1.6 - 8.3 10e3/uL 03/24/2023 7:25 AM TRIMMING OPERATOR [facility] Absolute Lymphocytes 0.7(L) 0.8 - 5.3 10e3/uL 03/24/2023 7:25 AM TRIMMING OPERATOR [facility] Absolute Monocytes 1.5(H) 0.0 - 1.3 10e3/uL 03/24/2023 7:25 AM TRIMMING OPERATOR [facility] Absolute Eosinophils 0.0 0.0 - 0.7 10e3/uL 03/24/2023 7:25 AM TRIMMING OPERATOR [facility] Absolute Basophils 0.0 0.0 - 0.2 10e3/uL 03/24/2023 7:25 AM TRIMMING OPERATOR [facility] Absolute Immature Granulocytes 0.1 <=0.4 10e3/uL 03/24/2023 7:25 AM TRIMMING OPERATOR [facility] Absolute NRBCs 0.0 10e3/uL 03/24/2023 7:25 AM TRIMMING OPERATOR [facility] Blood BLOOD SPECIMEN / Unknown Venipuncture / Unknown 03/24/2023 7:04 AM TRIMMING OPERATOR 03/24/2023 7:22 AM TRIMMING OPERATOR Cody Villarreal MD LAB - BLOOD ORDERABL ES [facility] [address] Lab (1st floor, no room number) [place] [address], [facility] [phone] * (ABNORMAL) Phosphorus (03/24/2023 7:04 AM TRIMMING OPERATOR) Phosphorus 4.7(H) 2.5 - 4.5 mg/dL 03/24/2023 7:44 AM TRIMMING OPERATOR [facility] Blood BLOOD SPECIMEN / Unknown Venipuncture / Unknown 03/24/2023 7:04 AM TRIMMING OPERATOR 03/24/2023 7:22 AM TRIMMING OPERATOR Cody Villarreal MD LAB - BLOOD ORDERABL ES [facility] [address] Lab (1st floor, no room number) [place] [address] [phone] * (ABNORMAL) Hepatic function panel (03/24/2023 7:04 AM TRIMMING OPERATOR) Protein Total 6.1(L) 6.4 - 8.3 g/dL 03/24/2023 7:44 AM TRIMMING OPERATOR [facility] Albumin 3.2(L) 3.5 - 5.2 g/dL 03/24/2023 7:44 AM TRIMMING OPERATOR [facility] Bilirubin Total 0.8 <=1.2 mg/dL 03/24/2023 7:44 AM TRIMMING OPERATOR [facility] Alkaline Phosphatase 113 40 - 150 U/L 03/24/2023 7:44 AM TRIMMING OPERATOR [facility] Comment:Reference intervals for this test were updated on 03/14/2023 to more accurately reflect our healthy population. There may be differences in the flagging of prior results with similar values performed with this method. Interpretation of those prior results can be made in the context of the updated reference intervals. AST 64(H) 0 - 45 U/L 03/24/2023 7:44 AM TRIMMING OPERATOR [facility] Comment:Reference intervals for this test were updated on 10/10/2022 to more accurately reflect our healthy population. There may be differences in the flagging of prior results with similar values performed with this method. Interpretation of those prior results can be made in the context of the updated reference intervals. ALT 58(H) 0 - 50 U/L 03/24/2023 7:44 AM TRIMMING OPERATOR [facility] Comment:Reference intervals for this test were updated on 10/10/2022 to more accurately reflect our healthy population. There may be differences in the flagging of prior results with similar values performed with this method. Interpretation of those prior results can be made in the context of the updated reference intervals. Bilirubin Direct 0.35(H) 0.00 - 0.30 mg/dL 03/24/2023 7:44 AM TRIMMING OPERATOR [facility] Blood BLOOD SPECIMEN / Unknown Venipuncture / Unknown 03/24/2023 7:04 AM TRIMMING OPERATOR 03/24/2023 7:22 AM TRIMMING OPERATOR Cody Villarreal MD LAB - BLOOD ORDERABL ES LABORATORY [facility] [address] Lab (1st floor, no room number) [place] [address], [facility] [phone] * (ABNORMAL) Basic metabolic panel (03/24/2023 7:04 AM TRIMMING OPERATOR) Sodium 136 135 - 145 mmol/L 03/24/2023 7:44 AM TRIMMING OPERATOR LABORATORY Comment:Reference intervals for this test were updated on 01/24/2023 to more accurately reflect our healthy population. There may be differences in the flagging of prior results with similar values performed with this method. Interpretation of those prior results can be made in the context of the updated reference intervals. Potassium 4.5 3.4 - 5.3 mmol/L 03/24/2023 7:44 AM [facility] Chloride 101 98 - 107 mmol/L 03/24/2023 7:44 AM [facility] Carbon Dioxide (CO2) 24 22 - 29 mmol/L 03/24/2023 7:44 AM [facility] Anion Gap 11 7 - 15 mmol/L 03/24/2023 7:44 AM [facility] Urea Nitrogen 26.1(H) 8.0 - 23.0 mg/dL 03/24/2023 7:44 AM [facility] Creatinine 1.06(H) 0.51 - 0.95 mg/dL 03/24/2023 7:44 AM [facility] GFR Estimate 54(L) >60 mL/min/1. 73m2 03/24/2023 7:44 AM [facility] Calcium 8.3(L) 8.8 - 10.2 mg/dL 03/24/2023 7:44 AM [facility] Glucose 89 70 - 99 mg/dL 03/24/2023 7:44 AM [facility] Blood BLOOD SPECIMEN / Unknown Venipuncture / Unknown 03/24/2023 7:04 AM TRIMMING OPERATOR 03/24/2023 7:22 AM TRIMMING OPERATOR Cody Villarreal MD LAB - BLOOD ORDERABL ES [facility] [address] Lab (1st floor, no room number) [place] [address], [facility] [phone] * Magnesium (03/24/2023 7:04 AM TRIMMING OPERATOR) Magnesium 1.7 1.7 - 2.3 mg/dL 03/24/2023 7:46 AM TRIMMING OPERATOR LABORATORY Blood BLOOD SPECIMEN / Unknown Venipuncture / Unknown 03/24/2023 7:04 AM TRIMMING OPERATOR 03/24/2023 7:22 AM TRIMMING OPERATOR Cody Villarreal MD LAB - BLOOD ORDERABL ES LABORATORY [facility] [address] [facility] Lab (1st floor, no room number) [place] [address], [facility] [phone] * XR Abdomen Port 1 View (03/24/2023 12:29 AM TRIMMING OPERATOR) Anatomical Region Laterality Modality Abdomen/Pelvis Digital Radiogra phy 03/24/2023 12:2 9 AM TRIMMING OPERATOR Impressions 03/24/2023 12:31 AM TRIMMING OPERATOR IMPRESSION: NG tube side-port is at the EG junction and should be advanced approximately 8 cm. Prior postoperative changes. Normal bowel gas pattern. Significant thoracolumbar curvature convex to the left. Narrative 03/24/2023 12:31 AM TRIMMING OPERATOR EXAM: XR ABDOMEN PORT 1 VIEW LOCATION: [facility] DATE: 03/24/2023 INDICATION: confirm NG placement for decompression COMPARISON: None. Procedure Note Davy Arnold MD - 03/24/2023 EXAM: XR ABDOMEN PORT 1 VIEW LOCATION: [facility] DATE: 03/24/2023 INDICATION: confirm NG placement for decompression COMPARISON: None. IMPRESSION: NG tube side-port is at the EG junction and should be advancedapproximately 8 cm. Prior postoperative changes. Normal bowel gas pattern.Significant thoracolumbar curvature convex to the left. Cody Villarreal MD IMG DIAGNOSTIC IMAGI NG ORDERABLES * Magnesium (03/23/2023 6:19 AM TRIMMING OPERATOR) Magnesium 1.8 1.7 - 2.3 mg/dL 03/23/2023 7:44 AM TRIMMING OPERATOR [facility] Blood STRUCTURE OF LEFT UPPER LIMB / Unknown Venipuncture / Unknown 03/23/2023 6:19 AM TRIMMING OPERATOR 03/23/2023 6:34 AM TRIMMING OPERATOR Bernice Stearns MD LAB - BLOOD ORDER MILE [facility] [address] Lab (1st floor, no room number) [place] [address], [place] [phone] * Potassium (03/23/2023 6:19 AM TRIMMING OPERATOR) Pathologist [facility] Potassium 4.3 3.4 - 5.3 mmol/L 03/23/2023 7:32 AM TRIMMING OPERATOR [facility] Blood STRUCTURE OF LEFT UPPER LIMB / Unknown Venipuncture / Unknown 03/23/2023 6:19 AM TRIMMING OPERATOR 03/23/2023 6:34 AM TRIMMING OPERATOR Bernice Stearns MD LAB - BLOOD ORDER MILE [facility] [address] Lab (1st floor, no room number) [place] [address], [facility] [phone] * (ABNORMAL) CBC with platelets (03/23/2023 6:19 AM TRIMMING OPERATOR) WBC Count 9.4 4.0 - 11.0 10e3/uL 03/23/2023 6:37 AM TRIMMING OPERATOR [facility] RBC Count 3.76(L) 3.80 - 5.20 10e6/uL 03/23/2023 6:37 AM TRIMMING OPERATOR [facility] Hemoglobin 11.8 11.7 - 15.7 g/dL 03/23/2023 6:37 AM TRIMMING OPERATOR [facility] Hematocrit 36.6 35.0 - 47.0 % 03/23/2023 6:37 AM TRIMMING OPERATOR [facility] MCV 97 78 - 100 fL 03/23/2023 6:37 AM TRIMMING OPERATOR [facility] MCH 31.4 26.5 - 33.0 pg 03/23/2023 6:37 AM TRIMMING OPERATOR LABORATORY MCHC 32.2 31.5 - 36.5 g/dL 03/23/2023 6:37 AM [facility] RDW 13.6 10.0 - 15.0 % 03/23/2023 6:37 AM [facility] Platelet Count 256 150 - 450 10e3/uL 03/23/2023 6:37 AM [facility] Blood STRUCTURE OF LEFT UPPER LIMB / Unknown Venipuncture / Unknown 03/23/2023 6:19 AM TRIMMING OPERATOR 03/23/2023 6:34 AM TRIMMING OPERATOR Radha Blood MD LAB - BLOOD ORDERABL ES LABORATORY [facility] [address] [facility] Lab (1st floor, no room number) [place] [address], [facility] [phone] * (ABNORMAL) Comprehensive metabolic panel (03/23/2023 6:19 AM TRIMMING OPERATOR) Sodium 137 135 - 145 mmol/L 03/23/2023 6:55 AM [facility] Comment:Reference intervals for this test were updated on 01/24/2023 to more accurately reflect our healthy population. There may be differences in the flagging of prior results with similar values performed with this method. Interpretation of those prior results can be made in the context of the updated reference intervals. Potassium 4.3 3.4 - 5.3 mmol/L 03/23/2023 6:55 AM [facility] Carbon Dioxide (CO2) 24 22 - 29 mmol/L 03/23/2023 6:55 AM [facility] Anion Gap 10 7 - 15 mmol/L 03/23/2023 6:55 AM [facility] Urea Nitrogen 20.3 8.0 - 23.0 mg/dL 03/23/2023 6:55 AM [facility] Creatinine 0.91 0.51 - 0.95 mg/dL 03/23/2023 6:55 AM [facility] GFR Estimate 65 >60 mL/min/1. 73m2 03/23/2023 6:55 AM [facility] Calcium 8.4(L) 8.8 - 10.2 mg/dL 03/23/2023 6:55 AM TRIMMING OPERATOR [facility] Chloride 103 98 - 107 mmol/L 03/23/2023 6:55 AM TRIMMING OPERATOR [facility] Glucose 102(H) 70 - 99 mg/dL 03/23/2023 6:55 AM TRIMMING OPERATOR [facility] Alkaline Phosphatase 140 40 - 150 U/L 03/23/2023 6:55 AM TRIMMING OPERATOR [facility] Comment:Reference intervals for this test were updated on 03/14/2023 to more accurately reflect our healthy population. There may be differences in the flagging of prior results with similar values performed with this method. Interpretation of those prior results can be made in the context of the updated reference intervals. AST 114(H) 0 - 45 U/L 03/23/2023 6:55 AM TRIMMING OPERATOR [facility] Comment:Reference intervals for this test were updated on 10/10/2022 to more accurately reflect our healthy population. There may be differences in the flagging of prior results with similar values performed with this method. Interpretation of those prior results can be made in the context of the updated reference intervals. ALT 95(H) 0 - 50 U/L 03/23/2023 6:55 AM TRIMMING OPERATOR [facility] Comment:Reference intervals for this test were updated on 10/10/2022 to more accurately reflect our healthy population. There may be differences in the flagging of prior results with similar values performed with this method. Interpretation of those prior results can be made in the context of the updated reference intervals. Protein Total 6.7 6.4 - 8.3 g/dL 03/23/2023 6:55 AM TRIMMING OPERATOR [facility] Albumin 3.7 3.5 - 5.2 g/dL 03/23/2023 6:55 AM TRIMMING OPERATOR [facility] Bilirubin Total 0.7 <=1.2 mg/dL 03/23/2023 6:55 AM TRIMMING OPERATOR [facility] Blood STRUCTURE OF LEFT UPPER LIMB / Unknown Venipuncture / Unknown 03/23/2023 6:19 AM TRIMMING OPERATOR 03/23/2023 6:34 AM TRIMMING OPERATOR Radha Blood MD LAB - BLOOD ORDERABL ES [facility] [address] Lab (1st floor, no room number) [place] [address], [facility] [phone] * Lactic acid whole blood (03/22/2023 5:05 PM TRIMMING OPERATOR) [facility] Lactic Acid 0.9 0.7 - 2.0 mmol/L 03/22/2023 5:22 PM TRIMMING OPERATOR [facility] Blood STRUCTURE OF RIGHT UPPER LIMB / Unknown Venipuncture / Unknown 03/22/2023 5:05 PM TRIMMING OPERATOR 03/22/2023 5:11 PM TRIMMING OPERATOR Radha Blood MD LAB - BLOOD ORDERABL ES [facility] [address] Lab (1st floor, no room number) [place] [address], [facility] [phone] * (ABNORMAL) CBC with platelets (03/22/2023 5:05 PM TRIMMING OPERATOR) [facility] WBC Count 8.1 4.0 - 11.0 10e3/uL 03/22/2023 5:15 PM TRIMMING OPERATOR [facility] RBC Count 3.57(L) 3.80 - 5.20 10e6/uL 03/22/2023 5:15 PM TRIMMING OPERATOR [facility] Hemoglobin 11.2(L) 11.7 - 15.7 g/dL 03/22/2023 5:15 PM TRIMMING OPERATOR [facility] Hematocrit 34.5(L) 35.0 - 47.0 % 03/22/2023 5:15 PM TRIMMING OPERATOR [facility] MCV 97 78 - 100 fL 03/22/2023 5:15 PM TRIMMING OPERATOR [facility] MCH 31.4 26.5 - 33.0 pg 03/22/2023 5:15 PM TRIMMING OPERATOR [facility] MCHC 32.5 31.5 - 36.5 g/dL 03/22/2023 5:15 PM TRIMMING OPERATOR [facility] RDW 13.4 10.0 - 15.0 % 03/22/2023 5:15 PM TRIMMING OPERATOR [facility] Platelet Count 231 150 - 450 10e3/uL 03/22/2023 5:15 PM TRIMMING OPERATOR [facility] Blood STRUCTURE OF RIGHT UPPER LIMB / Unknown Venipuncture / Unknown 03/22/2023 5:05 PM TRIMMING OPERATOR 03/22/2023 5:11 PM TRIMMING OPERATOR Radha Blood MD LAB - BLOOD ORDERABL ES [facility] [address] Lab (1st floor, no room number) [place] [address], [facility] [phone] * (ABNORMAL) Basic metabolic panel (03/22/2023 5:05 PM TRIMMING OPERATOR) [facility] Sodium 134(L) 135 - 145 mmol/L 03/22/2023 5:41 PM [facility] Comment:Reference intervals for this test were updated on 01/24/2023 to more accurately reflect our healthy population. There may be differences in the flagging of prior results with similar values performed with this method. Interpretation of those prior results can be made in the context of the updated reference intervals. Potassium 4.4 3.4 - 5.3 mmol/L 03/22/2023 5:41 PM [facility] Chloride 101 98 - 107 mmol/L 03/22/2023 5:41 PM [facility] Carbon Dioxide (CO2) 28 22 - 29 mmol/L 03/22/2023 5:41 PM [facility] Anion Gap 5(L) 7 - 15 mmol/L 03/22/2023 5:41 PM [facility] Urea Nitrogen 21.3 8.0 - 23.0 mg/dL 03/22/2023 5:41 PM [facility] Creatinine 0.93 0.51 - 0.95 mg/dL 03/22/2023 5:41 PM [facility] GFR Estimate 63 >60 mL/min/1. 73m2 03/22/2023 5:41 PM [facility] Calcium 8.3(L) 8.8 - 10.2 mg/dL 03/22/2023 5:41 PM [facility] Glucose 106(H) 70 - 99 mg/dL 03/22/2023 5:41 PM [facility] Blood STRUCTURE OF RIGHT UPPER LIMB / Unknown Venipuncture / Unknown 03/22/2023 5:05 PM TRIMMING OPERATOR 03/22/2023 5:11 PM TRIMMING OPERATOR Radha Blood MD LAB - BLOOD ORDERABL ES [facility] Lab [address] Lab (1st floor, no room number) [place] [address], [facility] [phone] documented in this encounter Visit Diagnoses Diagnosis SBO (small bowel obstruction) (H)- Primary Unspecified intestinal obstruction SBO (small bowel obstruction) (H) Unspecified intestinal obstruction SBO (small bowel obstruction) (H) Unspecified intestinal obstruction documented in this encounter Admitting Diagnoses Diagnosis SBO (small bowel obstruction) (H) Unspecified intestinal obstruction documented in this encounter Administered Medications Inactive Administered Medications - up to 3 most recent administrations Medication Order MAR Action Action Date Dose Rate Site acetaminophen (TYLENOL) tablet 650 mg 650 mg, Oral, EVERY 6 HOURS PRN, fever, mild pain, Starting on 03/26/23 at 1612, Maximum acetaminophen dose from all sources = 75 mg/kg/day not to exceed 4 grams/day. artificial saliva (BIOTENE MT) solution 1 spray 1 spray, Swish & Spit, 4 TIMES DAILY PRN, dry mouth, Starting on Mon03/24/23 at 0419 $Given 03/25/2023 1:45 AM TRIMMING OPERATOR 1 spray $Given 03/24/2023 7:04 PM TRIMMING OPERATOR 1 spray $Given 03/24/2023 11:49 AM TRIMMING OPERATOR 1 spray bupivacaine (MARCAINE) 0.25% preservative free injection PRN, Starting on Heidi 03/23/23 at 2040, Intra-procedure $Given 03/23/2023 8:40 PM TRIMMING OPERATOR 30 mLs Operative Site/Surgi tio Site buPROPion (WELLBUTRIN) tablet 100 mg 100 mg, Oral, 2 TIMES DAILY, First dose on Mon03/22/23 at 2000 $Given 03/27/2023 8:26 AM TRIMMING OPERATOR 100 mg $Given 03/26/2023 7:41 PM TRIMMING OPERATOR 100 mg $Given 03/26/2023 8:09 AM TRIMMING OPERATOR 100 mg enoxaparin ANTICOAGULANT (LOVENOX) injection 40 mg 40 mg, Subcutaneous, EVERY 24 HOURS, First dose on 03/25/23 at 1200 $Given 03/26/2023 12:05 PM TRIMMING OPERATOR 40 mg $Given 03/25/2023 11:58 AM TRIMMING OPERATOR 40 mg gabapentin (NEURONTIN) capsule 900 mg 900 mg, Oral, 3 TIMES DAILY, First dose on Mon03/22/23 at 2000 $Given 03/27/2023 8:26 AM TRIMMING OPERATOR 900 mg $Given 03/26/2023 7:41 PM TRIMMING OPERATOR 900 mg $Given 03/26/2023 1:49 PM TRIMMING OPERATOR 900 mg HYDROmorphone (DILAUDID) injection 0.2 mg 0.2 mg, Intravenous, EVERY 2 HOURS PRN, moderate pain, Starting on Heidi 03/23/23 at 0530 $Given 03/25/2023 11:58 AM TRIMMING OPERATOR 0.2 mg $Given 03/25/2023 1:42 AM TRIMMING OPERATOR 0.2 mg $Given 03/24/2023 1:28 PM TRIMMING OPERATOR 0.2 mg HYDROmorphone (DILAUDID) injection 0.4 mg 0.4 mg, Intravenous, EVERY 2 HOURS PRN, severe pain, Starting on Mon03/24/23 at 1400 $Given 03/24/2023 7:05 PM TRIMMING OPERATOR 0.4 mg levothyroxine (SYNTHROID/LEVOTHROID) tablet 137 mcg 137 mcg, Oral, EVERY MORNING BEFORE BREAKFAST, First dose on Mon03/27/23 at 0730, Separate oral administration of iron- or calcium-containing products and levothyroxine by at least 4 hours. $Given 03/27/2023 6:53 AM TRIMMING OPERATOR 137 mcg naloxone (NARCAN) injection 0.2 mg 0.2 mg, Intravenous, EVERY 2 MIN PRN, opioid reversal, Starting on Mon03/22/23 at 1629, Administer intravenous route when available and notify provider when administered. For unintended sedation or respiratory depression if all of the below criteria are met: ~ respiratory rate LESS than or EQUAL to 8. ~SaO2 less than 92% and or/end-tidal CO2 is greater than 50. ~ the patient is receiving an opioid, has unintended sedations assessed as RASS (-3), and is currently not on mechanical ventilation. RASS scale moderate (-3) is movement or eye opening to voice but no eye contact. Patient Monitoring Once the patient has demonstrated a response to the naloxone, continue to monitor respiratory rate, depth, oxygen saturation and end-tidal CO2 (if available) every 15 minutes x 2, then every 30 minutes x 2, then every 1 hour x 1 after each naloxone dose. Consider transfer to ICU if patient respiratory parameters have not improved after 4 naloxone doses. naloxone (NARCAN) injection 0.2 mg 0.2 mg, Intramuscular, EVERY 2 MIN PRN, opioid reversal, Starting on Mon03/22/23 at 1629, Administer intramuscular if an intravenous route is not available and notify provider when administered. For unintended sedation or respiratory depression if all of the below criteria are met: ~ respiratory rate LESS than or EQUAL to 8. ~SaO2 less than 92% and or/end-tidal CO2 is greater than 50. ~ the patient is receiving an opioid, has unintended sedations assessed as RASS (-3), and is currently not on mechanical ventilation. RASS scale moderate (-3) is movement or eye opening to voice but no eye contact. Patient Monitoring Once the patient has demonstrated a response to the naloxone, continue to monitor respiratory rate, depth, oxygen saturation and end-tidal CO2 (if available) every 15 minutes x 2, then every 30 minutes x 2, then every 1 hour x 1 after each naloxone dose. Consider transfer to ICU if patient respiratory parameters have not improved after 4 naloxone doses. naloxone (NARCAN) injection 0.4 mg 0.4 mg, Intravenous, EVERY 2 MIN PRN, opioid reversal, Starting on Mon03/22/23 at 1629, Administer intravenous route when available and notify provider when administered. For unintended sedation or respiratory depression if all of the below criteria are met: ~ respiratory rate LESS than or EQUAL to 8. ~ SaO2 less than 92% and or/end-tidal CO2 is greater than 50. ~ the patient is receiving an opioid, has unintended sedation assessed as RASS (-4) or (-5) and patient is currently not on mechanical ventilation. RASS scale (-4) is deep sedation with no response to voice but movement or eye opening to physical stimulation. RASS scale (-5) is unarousable. Patient Monitoring Once the patient has demonstrated a response to the naloxone, continue to monitor respiratory rate, depth, oxygen saturation and end-tidal CO2 (if available) every 15 minutes x 2, then every 30 minutes x 2, then every 1 hour x 1 after each naloxone dose. Consider transfer to ICU if patient respiratory parameters have not improved after 4 naloxone doses. naloxone (NARCAN) injection 0.4 mg 0.4 mg, Intramuscular, EVERY 2 MIN PRN, opioid reversal, Starting on Mon03/22/23 at 1629, Administer intramuscular if an intravenous route is not available and notify provider when administered. For unintended sedation or respiratory depression if all of the below criteria are met: ~ respiratory rate LESS than or EQUAL to 8. ~ SaO2 less than 92% and or/end-tidal CO2 is greater than 50. ~ the patient is receiving an opioid, has unintended sedation assessed as RASS (-4) or (-5) and patient is currently not on mechanical ventilation. RASS scale (-4) is deep sedation with no response to voice but movement or eye opening to physical stimulation. RASS scale (-5) is unarousable. Patient Monitoring Once the patient has demonstrated a response to the naloxone, continue to monitor respiratory rate, depth, oxygen saturation and end-tidal CO2 (if available) every 15 minutes x 2, then every 30 minutes x 2, then every 1 hour x 1 after each naloxone dose. Consider transfer to ICU if patient respiratory parameters have not improved after 4 naloxone doses. ondansetron (ZOFRAN) injection 4 mg 4 mg, Intravenous, EVERY 6 HOURS PRN, nausea, vomiting, Administer over 2-5 Minutes, Starting on Mon03/22/23 at 1612, Irritant. oxyCODONE (ROXICODONE) tablet 5 mg 5 mg, Oral, EVERY 4 HOURS PRN, severe pain, Starting on Mon03/26/23 at 1136 oxyCODONE IR (ROXICODONE) half-tab 2.5 mg 2.5 mg, Oral, EVERY 4 HOURS PRN, moderate pain, Starting on Mon03/26/23 at 1137 $Given 03/27/2023 6:53 AM TRIMMING OPERATOR 2.5 m g $Given 03/27/2023 1:58 AM TRIMMING OPERATOR 2.5 mg pantoprazole (PROTONIX) IV push injection 40 mg 40 mg, Intravenous, DAILY WITH BREAKFAST, First dose on Mon03/22/23 at 1930, Irritant. $Given 03/27/2023 8:2 5 AM TRIMMING OPERATOR 40 mg $Given 03/26/2023 8:09 AM TRIMMING OPERATOR 40 mg $Given 03/25/2023 9:17 AM TRIMMING OPERATOR 40 mg polyethylene glycol (MIRALAX) Packet 17 g 17 g, Oral, 2 TIMES DAILY, First dose (after last reorder) on Mon03/24/23 at 1430, 1 Packet = 17 grams. Mix each gram with at least 1/2 ounce (15 mL) of water - 8 ounces for 17 g dose, 4 ounces for 8.5 g dose, 2 ounces for 4 g dose. Follow with the same volume of water. Hold for loose stools unless being administered as part of a bowel prep regimen or bowel clean out. $Given 03/27/2023 8:26 AM TRIMMING OPERATOR 17 g $Given 03/26/2023 7:42 PM TRIMMING OPERATOR 17 g $Given 03/26/2023 8:09 AM TRIMMING OPERATOR 17 g prochlorperazine (COMPAZINE) injection 5 mg 5 mg, Intravenous, EVERY 6 HOURS PRN, nausea, vomiting, Administer over 1-2 Minutes, Starting on Mon03/22/23 at 1612 prochlorperazine (COMPAZINE) suppository 12.5 mg 12.5 mg, Rectal, EVERY 12 HOURS PRN, nausea, vomiting, Starting on Mon03/22/23 at 1612 prochlorperazine (COMPAZINE) tablet 5 mg 5 mg, Oral, EVERY 6 HOURS PRN, nausea, vomiting, Starting on Mon03/22/23 at 1612 senna-docusate (SENOKOT-S/PERICOLACE) 8.6-50 MG per tablet 1 tablet 1 tablet, Oral, 2 TIMES DAILY PRN, constipation, Starting on Mon03/22/23 at 1820, If no bowel movement in 24 hours, increase to 2 tablets by mouth. IF more than 1 constipation PRN medication is ordered, administer step-zavala as indicated, moving to the next step ONLY if prior step ineffective. Step 1: senna-docusate (SENOKOT-S; PERICOLACE) OR bisacodyl (DULCOLAX) EC tablet Step 2: polyethylene glycol (MIRALAX/GLYCOLAX) Step 3: bisacodyl (DULCOLAX) suppository Step 4: enema Hold for loose stools. senna-docusate (SENOKOT-S/PERICOLACE) 8.6-50 MG per tablet 2 tablet 2 tablet, Oral, 2 TIMES DAILY PRN, constipation, Starting on Mon03/22/23 at 1820, IF more than 1 constipation PRN medication is ordered, administer step-zavala as indicated, moving to the next step ONLY if prior step ineffective. Step 1: senna-docusate (SENOKOT-S; PERICOLACE) OR bisacodyl (DULCOLAX) EC tablet Step 2: polyethylene glycol (MIRALAX/GLYCOLAX) Step 3: bisacodyl (DULCOLAX) suppository Step 4: enema Hold for loose stools. sodium chloride (PF) 0.9% PF flush 3 mL 3 mL, Intracatheter, EVERY 8 HOURS, First dose on Mon03/23/23 at 2230, to lock peripheral IV dormant line $Given 03/26/2023 1:51 PM TRIMMING OPERATOR 3 mLs sodium chloride (PF) 0.9% PF flush 3 mL 3 mL, Intracatheter, EVERY 1 MIN PRN, line flush, other, to ensure patency or to lock dormant line, Starting on Mon03/23/23 at 2223 $Given 03/27/2023 8:26 AM TRIMMING OPERATOR 3 mLs sodium chloride 0.9% irrigation (bag) PRN, Starting on Mon03/23/23 at 2040, Intra-procedure $Given 03/23/2023 8:40 PM TRIMMING OPERATOR 1,000 mLs Operative Site/Surgi tio Site vancomycin (VANCOCIN) topical powder PRN, Starting on Mon03/23/23 at 2038, Intra-procedure $Given 03/23/2023 8:38 PM TRIMMING OPERATOR 1 g Operative Site/Surgi tio Site venlafaxine (EFFEXOR) tablet 75 mg 75 mg, Oral, 3 TIMES DAILY, First dose on Mon03/22/23 at 1999 $Given 03/27/2023 8:26 AM TRIMMING OPERATOR 75 mg $Given 03/26/2023 7:41 PM TRIMMING OPERATOR 75 mg $Given 03/26/2023 1:49 PM TRIMMING OPERATOR 75 mg documented in this encounter Active and Recently Administered Medications Times are shown in TRIMMING OPERATOR. Scheduled Medication Order 03/25/2023 03/26/2023 03/27/2023 buPROPion (WELLBUTRIN) tablet 100 mg 100 mg, Oral, 2 TIMES DAILY, First dose on Mon03/22/23 at 1999 0917 ($Given - Provider: Serenity Morataya RN)1910 ($Given - Provider: Kushal Hickman RN) 0809 ($Given - Provider: Og Baum RN)194 ($Given - Provider: Danielle Jimenez RN) 0826 ($Given - Provider: Clemencia Ballesteros RN) enoxaparin ANTICOAGULANT (LOVENOX) injection 40 mg 40 mg, Subcutaneous, EVERY 24 HOURS, First dose on Mon03/25/23 at 1200 1158 ($Given - Provider: Kushal Hickman RN) 1205 ($Given - Provider: Og Baum RN) 1200 (Canceled Entry - Provider: Orders Generic Provider - Comment: Automatically canceled at discontinue of medication order) gabapentin (NEURONTIN) capsule 900 mg 900 mg, Oral, 3 TIMES DAILY, First dose on Mon03/22/23 at 2000 0917 ($Given - Provider: Serenity Morataya RN)1407 ($Given - Provider: Kushal Hickman RN)1909 ($Given - Provider: Kushal Hickman RN) 0809 ($Given - Provider: Og Baum RN)1349 ($Given - Provider: Og Baum RN)1941 ($Given - Provider: Danielle Jimenez RN) 0826 ($Given - Provider: Clemencia Ballesteros RN)1400 (Canceled Entry - Provider: Orders Generic Provider - Comment: Automatically canceled at discontinue of medication order) levothyroxine (SYNTHROID/LEVOTHROID) tablet 137 mcg 137 mcg, Oral, EVERY MORNING BEFORE BREAKFAST, First dose on Mon03/27/23 at 0730, Separate oral administration of iron- or calcium-containing products and levothyroxine by at least 4 hours. 0653 ($Given - Provider: Danielle Jimenez RN) pantoprazole (PROTONIX) IV push injection 40 mg 40 mg, Intravenous, DAILY WITH BREAKFAST, First dose on Mon03/22/23 at 1930, Irritant. 0917 ($Given - Provider: Serenity Morataya RN) 0809 ($Given - Provider: Og Baum RN) 0825 ($Given - Provider: Clemencia Ballesteros, TONY) polyethylene glycol (MIRALAX) Packet 17 g 17 g, Oral, 2 TIMES DAILY, First dose (after last reorder) on Mon03/24/23 at 1430, 1 Packet = 17 grams. Mix each gram with at least 1/2 ounce (15 mL) of water - 8 ounces for 17 g dose, 4 ounces for 8.5 g dose, 2 ounces for 4 g dose. Follow with the same volume of water. Hold for loose stools unless being administered as part of a bowel prep regimen or bowel clean out. 0918 ($Given - Provider: Serenity Morataya RN)191 ($Given - Provider: Kushal Hickman RN) 0809 ($Given - Provider: Og Baum RN)194 ($Given - Provider: Danielle Jimenez RN) 0826 ($Given - Provider: Clemencia Ballesteros, TONY) sodium chloride (PF) 0.9% PF flush 3 mL (CANCELED) 3 mL, Intracatheter, EVERY 8 HOURS, First dose on Mon03/22/23 at 1830, to lock peripheral IV dormant line 0143 ($Given - Provider: Danielle Jimenez RN)0956 (Not Given - Provider: Serenity Morataya RN - Reason: IV Infusing)1739 (Not Given - Provider: Kushal Hickman RN - Reason: IV Infusing) 0239 (Not Given - Provider: Danielle Jimenez RN - Reason: IV Infusing)1030 (Not Given - Provider: Og Baum RN - Reason: IV Infusing)1855 (Not Given - Provider: Austen Watt RN - Reason: IV Infusing) 0301 (Not Given - Provider: Danielle Jimenez RN - Reason: Other)1030 (Canceled Entry - Provider: Clemencia Ballesteros, TONY) sodium chloride (PF) 0.9% PF flush 3 mL 3 mL, Intracatheter, EVERY 8 HOURS, First dose on Heidi 03/23/23 at 2230, to lock peripheral IV dormant line 0553 (Not Given - Provider: Danielle Jimenez RN - Reason: IV Infusing)1409 (Not Given - Provider: Kushal Hickman RN - Reason: IV Infusing)2219 (Not Given - Provider: Kushal Hickman RN - Reason: IV Infusing) 0650 (Not Given - Provider: Danielle Jimenez RN - Reason: IV Infusing)1351 ($Given - Provider: Og Baum RN)2155 (Not Given - Provider: Danielle Jimenez RN - Reason: Other) 0606 (Not Given - Provider: Danielle Jimenez RN - Reason: Patient sleeping)1430 (Canceled Entry - Provider: Orders Generic Provider - Comment: Automatically canceled at discontinue of medication order) venlafaxine (EFFEXOR) tablet 75 mg 75 mg, Oral, 3 TIMES DAILY, First dose on Mon03/22/23 at 1999 0917 ($Given - Provider: Serenity Morataya RN)1407 ($Given - Provider: Kushal Hickman RN)1910 ($Given - Provider: Kushal Hickman RN) 0809 ($Given - Provider: Og Baum RN)1349 ($Given - Provider: Og Baum RN)1941 ($Given - Provider: Danielle Jimenez RN) 0826 ($Given - Provider: Clemencia aBllesteros RN)1400 (Canceled Entry - Provider: Orders Generic Provider - Comment: Automatically canceled at discontinue of medication order) Continuous Medication Order 03/25/2023 03/26/2023 03/27/2023 lactated ringers infusion (CANCELED) at 75 mL/hr, Intravenous, CONTINUOUS, Starting on Heidi 03/23/23 at 0900, Until 03/26/23 at 1933 0444 ($New Bag - Provider: Danielle Jimenez RN)1845 ($New Bag - Provider: Stacey Trimble RN) 0734 ($New Bag - Provider: Danielle Jimenez RN)1941 (Stopped - Provider: Danielle Jimenez RN) PRN Medication Order 03/25/2023 03/26/2023 03/27/2023 acetaminophen (TYLENOL) tablet 650 mg (CANCELED) 650 mg, Oral, EVERY 6 HOURS PRN, fever, Starting on 03/26/23 at 1137, Maximum acetaminophen dose from all sources = 75 mg/kg/day not to exceed 4 grams/day. 1349 ($Given - Provider: Og Baum RN) acetaminophen (TYLENOL) tablet 650 mg 650 mg, Oral, EVERY 6 HOURS PRN, fever, mild pain, Starting on Mon03/26/23 at 1612, Maximum acetaminophen dose from all sources = 75 mg/kg/day not to exceed 4 grams/day. artificial saliva (BIOTENE MT) solution 1 spray 1 spray, Swish & Spit, 4 TIMES DAILY PRN, dry mouth, Starting on Mon03/24/23 at 0419 0145 ($Given - Provider: Danielle Jimenez RN) calcium carbonate (TUMS) chewable tablet 1,000 mg 1,000 mg, Oral, 4 TIMES DAILY PRN, heartburn, Starting on Mon03/22/23 at 1820 HYDROmorphone (DILAUDID) injection 0.2 mg 0.2 mg, Intravenous, EVERY 2 HOURS PRN, moderate pain, Starting on Mon03/23/23 at 0530 0142 ($Given - Provider: Danielle Jimenez RN)1158 ($Given - Provider: Kushal Hickman RN) HYDROmorphone (DILAUDID) injection 0.4 mg 0.4 mg, Intravenous, EVERY 2 HOURS PRN, severe pain, Starting on Mon03/24/23 at 1400 lidocaine (LMX4) cream Topical, EVERY 1 HOUR PRN, pain, with VAD insertion, Starting on Mon03/23/23 at 2223, Apply at least 30 minutes prior to VAD insertion in divided doses as needed for size of site for insertion. MAX Dose: 2.5 g (?? of 5 g tube) Do NOT give if patient has a history of allergy to any local anesthetic or any liz product. Do NOT use both lidocaine intradermal/subcutaneous injection and the lidocaine cream on the same site. lidocaine 1 % 0.1-1 mL 0.1-1 mL, Other, EVERY 1 HOUR PRN, mild pain with VAD insertion, Starting on Mon03/23/23 at 2223, MAX dose 1 mL subcutaneous OR intradermal along the side of the vein in divided doses as needed for VAD insertion. Do NOT give if patient has a history of allergy to any local anesthetic or any liz product. Do NOT use both lidocaine intradermal/subcutaneous injection and the lidocaine cream on the same site. naloxone (NARCAN) injection 0.2 mg(Linked Group 1) 0.2 mg, Intravenous, EVERY 2 MIN PRN, opioid reversal, Starting on Mon03/22/23 at 1629, Administer intravenous route when available and notify provider when administered. For unintended sedation or respiratory depression if all of the below criteria are met: ~ respiratory rate LESS than or EQUAL to 8. ~SaO2 less than 92% and or/end-tidal CO2 is greater than 50. ~ the patient is receiving an opioid, has unintended sedations assessed as RASS (-3), and is currently not on mechanical ventilation. RASS scale moderate (-3) is movement or eye opening to voice but no eye contact. Patient Monitoring Once the patient has demonstrated a response to the naloxone, continue to monitor respiratory rate, depth, oxygen saturation and end-tidal CO2 (if available) every 15 minutes x 2, then every 30 minutes x 2, then every 1 hour x 1 after each naloxone dose. Consider transfer to ICU if patient respiratory parameters have not improved after 4 naloxone doses. naloxone (NARCAN) injection 0.2 mg(Linked Group 1) 0.2 mg, Intramuscular, EVERY 2 MIN PRN, opioid reversal, Starting on Mon03/22/23 at 1629, Administer intramuscular if an intravenous route is not available and notify provider when administered. For unintended sedation or respiratory depression if all of the below criteria are met: ~ respiratory rate LESS than or EQUAL to 8. ~SaO2 less than 92% and or/end-tidal CO2 is greater than 50. ~ the patient is receiving an opioid, has unintended sedations assessed as RASS (-3), and is currently not on mechanical ventilation. RASS scale moderate (-3) is movement or eye opening to voice but no eye contact. Patient Monitoring Once the patient has demonstrated a response to the naloxone, continue to monitor respiratory rate, depth, oxygen saturation and end-tidal CO2 (if available) every 15 minutes x 2, then every 30 minutes x 2, then every 1 hour x 1 after each naloxone dose. Consider transfer to ICU if patient respiratory parameters have not improved after 4 naloxone doses. naloxone (NARCAN) injection 0.4 mg(Linked Group 1) 0.4 mg, Intravenous, EVERY 2 MIN PRN, opioid reversal, Starting on Mon03/22/23 at 1629, Administer intravenous route when available and notify provider when administered. For unintended sedation or respiratory depression if all of the below criteria are met: ~ respiratory rate LESS than or EQUAL to 8. ~ SaO2 less than 92% and or/end-tidal CO2 is greater than 50. ~ the patient is receiving an opioid, has unintended sedation assessed as RASS (-4) or (-5) and patient is currently not on mechanical ventilation. RASS scale (-4) is deep sedation with no response to voice but movement or eye opening to physical stimulation. RASS scale (-5) is unarousable. Patient Monitoring Once the patient has demonstrated a response to the naloxone, continue to monitor respiratory rate, depth, oxygen saturation and end-tidal CO2 (if available) every 15 minutes x 2, then every 30 minutes x 2, then every 1 hour x 1 after each naloxone dose. Consider transfer to ICU if patient respiratory parameters have not improved after 4 naloxone doses. naloxone (NARCAN) injection 0.4 mg(Linked Group 1) 0.4 mg, Intramuscular, EVERY 2 MIN PRN, opioid reversal, Starting on Mon03/22/23 at 1629, Administer intramuscular if an intravenous route is not available and notify provider when administered. For unintended sedation or respiratory depression if all of the below criteria are met: ~ respiratory rate LESS than or EQUAL to 8. ~ SaO2 less than 92% and or/end-tidal CO2 is greater than 50. ~ the patient is receiving an opioid, has unintended sedation assessed as RASS (-4) or (-5) and patient is currently not on mechanical ventilation. RASS scale (-4) is deep sedation with no response to voice but movement or eye opening to physical stimulation. RASS scale (-5) is unarousable. Patient Monitoring Once the patient has demonstrated a response to the naloxone, continue to monitor respiratory rate, depth, oxygen saturation and end-tidal CO2 (if available) every 15 minutes x 2, then every 30 minutes x 2, then every 1 hour x 1 after each naloxone dose. Consider transfer to ICU if patient respiratory parameters have not improved after 4 naloxone doses. ondansetron (ZOFRAN) injection 4 mg 4 mg, Intravenous, EVERY 6 HOURS PRN, nausea, vomiting, Administer over 2-5 Minutes, Starting on Mon03/22/23 at 1612, Irritant. oxyCODONE (ROXICODONE) tablet 5 mg 5 mg, Oral, EVERY 4 HOURS PRN, severe pain, Starting on 03/26/23 at 1136 oxyCODONE IR (ROXICODONE) half-tab 2.5 mg 2.5 mg, Oral, EVERY 4 HOURS PRN, moderate pain, Starting on Mon03/26/23 at 1137 0158 ($Given - Provider: Danielle Jimenez RN)0653 ($Given - Provider: Danielle Jimenez RN) prochlorperazine (COMPAZINE) injection 5 mg(Linked Group 2) 5 mg, Intravenous, EVERY 6 HOURS PRN, nausea, vomiting, Administer over 1-2 Minutes, Starting on Mon03/22/23 at 1612 prochlorperazine (COMPAZINE) suppository 12.5 mg(Linked Group 2) 12.5 mg, Rectal, EVERY 12 HOURS PRN, nausea, vomiting, Starting on Mon03/22/23 at 1612 prochlorperazine (COMPAZINE) tablet 5 mg(Linked Group 2) 5 mg, Oral, EVERY 6 HOURS PRN, nausea, vomiting, Starting on Mon03/22/23 at 1612 senna-docusate (SENOKOT-S/PERICOLACE) 8.6-50 MG per tablet 1 tablet(Linked Group 3) 1 tablet, Oral, 2 TIMES DAILY PRN, constipation, Starting on Mon03/22/23 at 1820, If no bowel movement in 24 hours, increase to 2 tablets by mouth. IF more than 1 constipation PRN medication is ordered, administer step-zavala as indicated, moving to the next step ONLY if prior step ineffective. Step 1: senna-docusate (SENOKOT-S; PERICOLACE) OR bisacodyl (DULCOLAX) EC tablet Step 2: polyethylene glycol (MIRALAX/GLYCOLAX) Step 3: bisacodyl (DULCOLAX) suppository Step 4: enema Hold for loose stools. senna-docusate (SENOKOT-S/PERICOLACE) 8.6-50 MG per tablet 2 tablet(Linked Group 3) 2 tablet, Oral, 2 TIMES DAILY PRN, constipation, Starting on Mon03/22/23 at 1820, IF more than 1 constipation PRN medication is ordered, administer step-zavala as indicated, moving to the next step ONLY if prior step ineffective. Step 1: senna-docusate (SENOKOT-S; PERICOLACE) OR bisacodyl (DULCOLAX) EC tablet Step 2: polyethylene glycol (MIRALAX/GLYCOLAX) Step 3: bisacodyl (DULCOLAX) suppository Step 4: enema Hold for loose stools. sodium chloride (PF) 0.9% PF flush 3 mL 3 mL, Intracatheter, EVERY 1 MIN PRN, line flush, other, to ensure patency or to lock dormant line, Starting on Heidi 03/23/23 at 2223 0826 ($Given - Provider: Clemencia Ballesteros RN) Linked Groups Order Group 1: naloxone (NARCAN) injection 0.2 mgJump to med 0.2 mg, Intravenous, EVERY 2 MIN PRN, opioid reversal, Starting on Mon03/22/23 at 1629, Administer intravenous route when available and notify provider when administered. For unintended sedation or respiratory depression if all of the below criteria are met: ~ respiratory rate LESS than or EQUAL to 8. ~SaO2 less than 92% and or/end-tidal CO2 is greater than 50. ~ the patient is receiving an opioid, has unintended sedations assessed as RASS (-3), and is currently not on mechanical ventilation. RASS scale moderate (-3) is movement or eye opening to voice but no eye contact. Patient Monitoring Once the patient has demonstrated a response to the naloxone, continue to monitor respiratory rate, depth, oxygen saturation and end-tidal CO2 (if available) every 15 minutes x 2, then every 30 minutes x 2, then every 1 hour x 1 after each naloxone dose. Consider transfer to ICU if patient respiratory parameters have not improved after 4 naloxone doses. Or naloxone (NARCAN) injection 0.4 mgJump to med 0.4 mg, Intravenous, EVERY 2 MIN PRN, opioid reversal, Starting on Mon03/22/23 at 1629, Administer intravenous route when available and notify provider when administered. For unintended sedation or respiratory depression if all of the below criteria are met: ~ respiratory rate LESS than or EQUAL to 8. ~ SaO2 less than 92% and or/end-tidal CO2 is greater than 50. ~ the patient is receiving an opioid, has unintended sedation assessed as RASS (-4) or (-5) and patient is currently not on mechanical ventilation. RASS scale (-4) is deep sedation with no response to voice but movement or eye opening to physical stimulation. RASS scale (-5) is unarousable. Patient Monitoring Once the patient has demonstrated a response to the naloxone, continue to monitor respiratory rate, depth, oxygen saturation and end-tidal CO2 (if available) every 15 minutes x 2, then every 30 minutes x 2, then every 1 hour x 1 after each naloxone dose. Consider transfer to ICU if patient respiratory parameters have not improved after 4 naloxone doses. Or naloxone (NARCAN) injection 0.2 mgJump to med 0.2 mg, Intramuscular, EVERY 2 MIN PRN, opioid reversal, Starting on Mon03/22/23 at 1629, Administer intramuscular if an intravenous route is not available and notify provider when administered. For unintended sedation or respiratory depression if all of the below criteria are met: ~ respiratory rate LESS than or EQUAL to 8. ~SaO2 less than 92% and or/end-tidal CO2 is greater than 50. ~ the patient is receiving an opioid, has unintended sedations assessed as RASS (-3), and is currently not on mechanical ventilation. RASS scale moderate (-3) is movement or eye opening to voice but no eye contact. Patient Monitoring Once the patient has demonstrated a response to the naloxone, continue to monitor respiratory rate, depth, oxygen saturation and end-tidal CO2 (if available) every 15 minutes x 2, then every 30 minutes x 2, then every 1 hour x 1 after each naloxone dose. Consider transfer to ICU if patient respiratory parameters have not improved after 4 naloxone doses. Or naloxone (NARCAN) injection 0.4 mgJump to med 0.4 mg, Intramuscular, EVERY 2 MIN PRN, opioid reversal, Starting on Mon03/22/23 at 1629, Administer intramuscular if an intravenous route is not available and notify provider when administered. For unintended sedation or respiratory depression if all of the below criteria are met: ~ respiratory rate LESS than or EQUAL to 8. ~ SaO2 less than 92% and or/end-tidal CO2 is greater than 50. ~ the patient is receiving an opioid, has unintended sedation assessed as RASS (-4) or (-5) and patient is currently not on mechanical ventilation. RASS scale (-4) is deep sedation with no response to voice but movement or eye opening to physical stimulation. RASS scale (-5) is unarousable. Patient Monitoring Once the patient has demonstrated a response to the naloxone, continue to monitor respiratory rate, depth, oxygen saturation and end-tidal CO2 (if available) every 15 minutes x 2, then every 30 minutes x 2, then every 1 hour x 1 after each naloxone dose. Consider transfer to ICU if patient respiratory parameters have not improved after 4 naloxone doses. Group 2: prochlorperazine (COMPAZINE) injection 5 mgJump to med 5 mg, Intravenous, EVERY 6 HOURS PRN, nausea, vomiting, Administer over 1-2 Minutes, Starting on Mon03/22/23 at 1612 Or prochlorperazine (COMPAZINE) tablet 5 mgJump to med 5 mg, Oral, EVERY 6 HOURS PRN, nausea, vomiting, Starting on Mon03/22/23 at 1612 Or prochlorperazine (COMPAZINE) suppository 12.5 mgJump to med 12.5 mg, Rectal, EVERY 12 HOURS PRN, nausea, vomiting, Starting on Mon03/22/23 at 1612 Group 3: senna-docusate (SENOKOT-S/PERICOLACE) 8.6-50 MG per tablet 1 tabletJump to med 1 tablet, Oral, 2 TIMES DAILY PRN, constipation, Starting on Mon03/22/23 at 1820, If no bowel movement in 24 hours, increase to 2 tablets by mouth. IF more than 1 constipation PRN medication is ordered, administer step-zavala as indicated, moving to the next step ONLY if prior step ineffective. Step 1: senna-docusate (SENOKOT-S; PERICOLACE) OR bisacodyl (DULCOLAX) EC tablet Step 2: polyethylene glycol (MIRALAX/GLYCOLAX) Step 3: bisacodyl (DULCOLAX) suppository Step 4: enema Hold for loose stools. Or senna-docusate (SENOKOT-S/PERICOLACE) 8.6-50 MG per tablet 2 tabletJump to med 2 tablet, Oral, 2 TIMES DAILY PRN, constipation, Starting on Mon03/22/23 at 1820, IF more than 1 constipation PRN medication is ordered, administer step-zavala as indicated, moving to the next step ONLY if prior step ineffective. Step 1: senna-docusate (SENOKOT-S; PERICOLACE) OR bisacodyl (DULCOLAX) EC tablet Step 2: polyethylene glycol (MIRALAX/GLYCOLAX) Step 3: bisacodyl (DULCOLAX) suppository Step 4: enema Hold for loose stools. documented in this encounter Care Teams Ladle Puller Relationship Specialty Start Date End Date Juan Rojas MD [id number] [place] [address] PCP - General Family Medicine 03/23/23 documented as of this encounter
--- OUTSIDE RECORDS SUMMARY | 2023-05-24 16:33 | XMS_ITS | Encounter Summary ---
Author Name Unknown Organization [facility] Address [address] [place] [address]. 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 Connor, [facility] Gail Huynh 77 yo F presents with abd pain. Hx ostomy, total colectomy at [facility]. No output for couple days, partial SBO on CT, maybe stricture at ostomy site. VSS, labs unremarkable. General surgery and CRS at [facility] contacted by ED provider prior to direct admit. Louise Younger PA-C [facility] documented in this encounter Plan of Treatment Not on file documented as of this encounter Visit Diagnoses Not on filedocumented in this encounter
--- OUTSIDE RECORDS SUMMARY | 2023-05-24 16:33 | XMS_ITS | Encounter Summary ---
Author Name Unknown Organization [place] Address [address] [place] [address] Care Team Providers Care Insulation Engineman Name Role Phone Juan Rojas MD Primary Care Provider [phone] Reason for Visit * Auth/Cert (Routine) Specialty Diagnoses / Procedures Referred By Sundar daivson Referred To Contact Orthopedics Diagnoses SBO (small bowel obstruction) (H) Bowel obstruction SBO (small bowel obstruction) (H) Orth[facility] Spine [address] [place] [address] Referral ID Status Reason Start Date Expiration Date Visits Re quested Visits Authorized [id number] 1 1 Encounter Details Date Type Department Care Team (Latest Contact Info) Description 03/22/2023 3:53 PM AGENCY SALES DIRECTOR - 03/27/2023 1:40 PM AGENCY SALES DIRECTOR Hospital Encounter [facility] [address] [place] [address] Fransisco Licea MD [address] [place] [address] Radha Blood MD [address] [place] [address] SBO (small bowel obstruction) (H) (Primary Dx) Discharge Disposition: Home or Self Care Social History Tobacco Use Types Packs/Day Years [...] Comments Blood Pressure 155/66 03/27/2023 8:11 AM AGENCY SALES DIRECTOR Pulse 90 03/27/2023 8:11 AM AGENCY SALES DIRECTOR Temperature 36.5 ??C (97.7 ??F) 03/27/2023 8:11 AM CS T Respiratory Rate 18 03/27/2023 8:11 AM AGENCY SALES DIRECTOR Oxygen Saturation 93% 03/27/2023 8:11 AM AGENCY SALES DIRECTOR Inhaled Oxygen Concentration - - Weight 98.3 kg (216 lb 11.4 oz) 03/22/2023 3:57 PM AGENCY SALES DIRECTOR Height 160 cm (5' 3) 03/22/2023 5:00 PM AGENCY SALES DIRECTOR Body Mass Index 38.39 03/22/2023 3:57 PM AGENCY SALES DIRECTOR documented in this encounter Discharge Summaries * Darshan Simmons MD - 03/27/2023 1:40 PM CST [facility] Hospitalist Discharge Summary Date of Admission: [...] your miguelito removed, please call us at [phone] and ask to speak with our nurse. We are located at [address] [facility] [address], [place] [address] Follow-up and recommended labs and tests With [...] admitted on 03/22/2023 via direct admission from [facility] with at least partial SBO and suspicion for ostomy stricture (she has had a prior stricture requiring dilation at [facility] 3 years ago). Patient reported low [...] Fibromuscular dysplasia of the renal arteries Hypertension Grey Goods Examiner medications include losartan, furosemide, and recently ordered hydrochlorothiazide (which was not yet started). 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 Acute blood loss and dilutional anemia -Hgb dropped from 11-8 after IV hydration and surgery. Follow as outpatient. Prediabetic Hgb A1c 03/2022 was 5.9%. Hx of mitral valve stenosis Hx of aortic valve stenosis Hx of cLVH No e/o decompensation. Peripheral neuropathy Continue po gabapentin Remote hx of a DVT Hyperlipidemia Can resume METAL FABRICATION SUPERVISOR atorvastatin on discharge. Depression Continue METAL FABRICATION SUPERVISOR bupropion and venlafaxine as tolerated. History of [...] minutes discharging this patient. Darshan Simmons MD [facility] [address] [facility] [address] Physical Exam Vital Signs: Weight: 216 lbs 11.39 oz Primary Care Physician Juan Rojas Discharge Orders Follow-up and recommended labs and tests Follow up with surgery clinic or PCP in about 10 days to have miguelito removed. If you have any questions or concerns or need to make appointment to have your miguelito removed, please call us at [phone] and ask to speak with our nurse. We are located at [address] [facility] [facility] [address], [place] [address] Activity Your activity upon discharge: activity as [...] EXAM: XR ABDOMEN PORT 1 VIEW LOCATION: [facility] DATE: 03/24/2023 INDICATION: confirm NG placement for decompression COMPARISON: None. Impression IMPRESSION: NG tube side-port is at the EG junction and should be advanced approximately 8 cm. Prior postoperative changes. Normal bowel gas pattern. Significant thoracolumbar curvature convex to theleft. US Renal Complete Non-Vascular Narrative EXAM: US RENAL COMPLETE NON-VASCULAR LOCATION: [facility] DATE: 03/25/2023 INDICATION: BRICE post op [...] Sulfa-cream product 5 or 6 years ago CY SALES DIRECTOR documented in this encounter Medications at Time [...] Dr. Simmons notified and med escripted to [facility], per patient request. Oxycodone returned to discharge pharmacy. Patient also left Provena pump charging chord. Will send via granulator to patients home. CY SALES DIRECTOR * Darshan Simmons MD - 03/27/2023 11:48 AM CST 40 minutes spent on discharge. I discussed with Dayron Huynh. 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 Patient reported low [...] Fibromuscular dysplasia of the renal arteries Hypertension Grey Goods Examiner medications include losartan, furosemide, and recently ordered hydrochlorothiazide (which was not yet started). - BP remains low / well controlled and have not yet resumed. - Continue to monitor. 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 Continue PPI by IV. Prediabetic Hgb A1c 03/2022 was 5.9%. Hx of mitral valve stenosis Hx of aortic valve stenosis Hx of cLVH No e/o decompensation. Peripheral neuropathy Continue po gabapentin Remote hx of a DVT Continue SCDs. Considered subQ heparin addition, however, Hgb trending down slightly and likely discharge as soon as 03/27. Encourage ambulation and follow. Hyperlipidemia Can resume METAL FABRICATION SUPERVISOR atorvastatin on discharge. Depression Continue METAL FABRICATION SUPERVISOR bupropion and venlafaxine as tolerated. History of COVID 19 vaccination S/p 3 shot pfizer series followed by moderna booster 03/2022 (biv) DVT Prophylaxis: Pneumatic Compression Devices Code Status: Full Code Expected discharge: Anticipate hospital stay at least 1 more day pending post-op course. Bernice Stearns MD FACP Hospitalist Service [facility] Securely message with [employer] (more info) Interval History Diet being advanced [...] resting in bed and watching Hallmark movie. No acute distress. Alert and oriented. [...] previous visit (from the past 24 hour(s)). CY SALES DIRECTOR * Og Baum RN - 03/26/2023 12:09 [...] and Mag active Plan: TBD Discharge: TBD CY SALES DIRECTOR * Daisy Pedraza PA-C - 03/26/2023 10:43 AM CST [facility] General Surgery Progress Note Assessment and [...] -- -- 64* 114* Daisy Pedraza PA-C CY SALES DIRECTOR * Bernice Stearns MD - 03/25/2023 9:45 AM CST [facility] Hospitalist Progress Note Assessment & Plan [...] admitted on 03/22/2023 via direct admission from [facility] with at least partial SBO and suspicion for ostomy stricture (she has had a prior stricture requiring dilation at [facility] 3 years ago). Patient reported low [...] Fibromuscular dysplasia of the renal arteries Hypertension Grey Goods Examiner medications include losartan, furosemide, and recently started [...] her atorvastatin for bowel rest Depression Continue METAL FABRICATION SUPERVISOR bupropion and venlafaxine as tolerated. History of COVID 19 vaccination S/p 3 shot pfizer series followed by moderna booster 03/2022 (biv) DVT Prophylaxis: Pneumatic Compression Devices Code Status: Full Code Expected discharge: Anticipate hospital stay at least several more days pending post-op course and surgery recommendations. Bernice Stearns MD FACP Hospitalist Service [facility] Securely message with [employer] (more info) Interval History Patient's diet has [...] previous visit (from the past 24 hour(s)). CY SALES DIRECTOR * Tiara Lai MD - 03/25/2023 9:10 AM CST [facility] General Surgery Progress Note Assessment and [...] 4.3 CHLORIDE 98 101 103 CO2 24 24 BUN 42.9* 26.1* 20.3 CR 1.62* 1.06* 0.91 ANIONGAP 10 11 10 TIO 8.6* 8.3* 8.4* GLC 106* 89 102* ALBUMIN -- 3.2* 3.7 PROTTOTAL -- 6.1* 6.7 BILITOTAL -- 0.8 0.7 ALKPHOS -- 113 140 ALT -- 58* 95* AST -- 64* 114* Daisy Pedraza PA-C CY SALES DIRECTOR * Bernice Stearns MD - 03/24/2023 2:00 PM CST [facility] Hospitalist Progress Note Assessment & Plan [...] admitted on 03/22/2023 via direct admission from [facility] with at least partial SBO and suspicion for ostomy stricture (she has had a prior stricture requiring dilation at [facility] 3 years ago). Patient reported low [...] Fibromuscular dysplasia of the renal arteries Hypertension Grey Goods Examiner medications include losartan, furosemide, and recently started [...] her atorvastatin for bowel rest Depression Continue METAL FABRICATION SUPERVISOR bupropion and venlafaxine as tolerated. History of COVID 19 vaccination S/p 3 shot pfizer series followed by moderna booster 03/2022 (biv) DVT Prophylaxis: Pneumatic Compression Devices Code Status: Full Code Expected discharge: Anticipate hospital stay at least several more days pending post-op course. Bernice Stearns MD FACP Hospitalist Service [facility] Securely message with [employer] (more info) Interval History Post op overnight [...] ??F (36.4 ??C) Pulse: [88-103] 103 Resp: [11-22] 18 BP: (103-150)/(35-83) 109/35 SpO2: [91 %-100 [...] EXAM: XR ABDOMEN PORT 1 VIEW LOCATION: [facility] DATE: 03/24/2023 INDICATION: confirm NG placement for decompression COMPARISON: None. Impression IMPRESSION: NG tube side-port is at the EG junction and should be advanced approximately 8 cm. Prior postoperative changes. Normal bowel gas pattern. Significant thoracolumbar curvature convex to theleft. CY SALES DIRECTOR * Cody Villarreal MD - 03/24/2023 9:35 AM CST [facility] General Surgery Progress Note Assessment and [...] AST 64* 114* -- Daisy Pedraza PA-C CY SALES DIRECTOR * Abdirizak Mullins RN - 03/23/2023 11:10 PM CST Pt arrived from PACU via cart around 2230. On 2L O2. Reoriented to room. CY SALES DIRECTOR * Bernice Stearns MD - 03/23/2023 9:54 AM CST [facility] Hospitalist Progress Note Assessment & Plan [...] admitted on 03/22/2023 via direct admission from [facility] with at least partial SBO and suspicion for ostomy stricture (she has had a prior stricture requiring dilation at [facility] 3 years ago). Patient reported low [...] Fibromuscular dysplasia of the renal arteries Htn Grey Goods Examiner medications include losartan, furosemide, and recently started [...] her atorvastatin for bowel rest Depression Continue METAL FABRICATION SUPERVISOR bupropion and venlafaxine as tolerated. History of COVID 19 vaccination S/p 3 shot pfizer series followed by moderna booster 03/2022 (biv) DVT Prophylaxis: Pneumatic Compression Devices Code Status: Full Code Expected discharge: Anticipate hospital stay at least several more days pending clinical improvement. Bernice Stearns MD FACP Hospitalist Service [facility] Securely message with [employer] (more info) Interval History Patient with increased [...] previous visit (from the past 24 hour(s)). CY SALES DIRECTOR * Josey Jefferson MD - 03/22/2023 6:06 [...] at her ileum, by a physician at [place], and that she may need dilation. Her [...] Fabian. 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 Auth Provider [employer] Volleyball Coach End Date acetaminophen (TYLENOL) 500 MG tablet [...] condensed version of labs obtained at OSH CY SALES DIRECTOR documented in this encounter Consult Notes * [...] assistance with transportation home at discharge. Per charge preparation technician, patient is anticipated to discharge today. Per bedside RN patient is appropriate for taxi transport. CM met with patient at the bedside who denied having any family/friends that can provide transportationback to her home. She denied ability to pay for taxi transportation. She confirmed her residence [place] [facility] in [place] and stated she will be able to get into facility when she returns. She stated moreno is planning to stay with her for a couple nights. CM will assist with [employer] taxi set up, bedside RN informed. Addendum 1328: CM confirmed patient's home address in [place] and set up [employer] taxi to patient's home address. CM reinforced importance of attending follow up appts and patient verbalized understanding and stated she can arrange transport to get to follow up appts. 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 CY SALES DIRECTOR documented in this encounter Miscellaneous Notes * Care Plan - Clemencia Ballesteros RN - 03/27/2023 12:04 PM CST Discharge instructions given, iv removed. Filled meds given for home use. Patient will take taxi home arranged through . CY SALES DIRECTOR * Plan of Care - Danielle Jimenez [...] states she needs assistance with transportation home. CY SALES DIRECTOR * Plan of Care - Danielle Jimenez [...] Last PVR 180 ml. Discharge plan pending. CY SALES DIRECTOR * Care Plan - Kushal Hickman RN - 03/25/2023 11:19 PM CST Time of Care: [id number] Orientation: A/O x 4 VS: BP 100/41 [...] @ 75ml/hr Diet: Full Liquids Discharge: TBD CY SALES DIRECTOR * Plan of Care - Serenity Morataya [...] cares. Will continue to provide supportive care. CY SALES DIRECTOR * Plan of Care - Danielle Jimenez [...] with PRN IV dilaudid. Discharge plan pending. CY SALES DIRECTOR * Plan of Care - Nevin Rizvi [...] removed. Tachycardic, provider ordered EKG, done today. CY SALES DIRECTOR * Plan of Care - Abdirizak Mullins [...] 75. NPO with ice chips. Plan TBD. CY SALES DIRECTOR * Op Note - Cody Villarreal MD - 03/23/2023 6:58 PM CST General Surgery Operative Note Pre-operative diagnosis: SBO Post-operative diagnosis: same Procedure: Diagnostic laparoscopy, converted to open laparostomy, extensive lysis of adhesions, removal of small bowel phytobezoar through small bowel enterotomy, repair of small bowel enterotomy, revision of ileostomy fascial exit, peritoneal lavage Surgeon: Cody Villarreal MD Cancer Genetics Assistant(s): Daisy Pedraza PA-C The Physician Cancer Genetics Assistant was medically necessary for their expertise in [...] end of the case. Cody Villarreal MD CY SALES DIRECTOR * Plan of Care - Nevin Rizvi [...] to pre-op, pt transferred down @ 1630. CY SALES DIRECTOR * Plan of Care - Malinda Graves [...] Plan TBD, colorectal and general surgery consulted. CY SALES DIRECTOR * Provider Notification - Malinda Graves RN - 03/23/2023 4:53 AM AGENCY SALES DIRECTOR 0453: Provider notified that pt have increase abd pain. Receiving IV dilaudid. Due to frequency unable to give dose at this time. Pt c/o gas pain. NPO. Orders? CY SALES DIRECTOR * Plan of Care - Daksha Mejia RN - 03/22/2023 10:06 PM CST Goal Outcome Evaluation: Vital signs stable. Bowel sounds absent, no flatus, no stool in ostomy appliance. Denies nausea, iv infusing.Npo. Pain controlled with iv dilaudid. Colorectal surgery consult in am. Care plan reviewed with pt. CY SALES DIRECTOR * Pharmacy-Admission Medication History - Souleymane Naylor - 03/22/2023 4:54 PM AGENCY SALES DIRECTOR Teletypewriter Operator Admission Medication History Admission medication history is complete. The information provided in this note is only as accurateas the sources available at the time of the update. Information Source(s): Patient and CareEverywhere/SureScripts via in-person Pertinent Information: None Changes made to METAL FABRICATION SUPERVISOR medication list: Added: All Deleted: None Changed: None Medication Affordability:No Allergies reviewed with patient and updates made in EHR: yes Medication History Completed By: Souleymane Naylor 03/22/2023 4:54 PM Prior to Admission medications Medication Sig Last Dose Taking? Auth Provider Snf End Date acetaminophen (TYLENOL) 500 MG tablet [...] at Noon Yes Unknown, Entered By History CY SALES DIRECTOR Associated attestation - Azeem Tomlin RPH - 03/22/2023 6:34 PM AGENCY SALES DIRECTOR Although I was not present for the interview, nor did I personally see the patient, to my knowledgethe intelligence intern has compiled the METAL FABRICATION SUPERVISOR medication list to the best of their [...] AND PLATELET MORPHOLOGY Routine 03/27/2023 6:31 AM AGENCY SALES DIRECTOR CBC WITH PLATELETS AND DIFFERENTIAL Routine 03/27/2023 6:31 AM AGENCY SALES DIRECTOR CBC WITH PLATELETS & DIFFERENTIAL Routine 03/27/2023 6:31 AM AGENCY SALES DIRECTOR MAGNESIUM Routine 03/27/2023 6:31 AM AGENCY SALES DIRECTOR BASIC METABOLIC PANEL Routine 03/27/2023 6:31 AM AGENCY SALES DIRECTOR CBC WITH PLATELETS AND DIFFERENTIAL Routine 03/26/2023 6:54 AM AGENCY SALES DIRECTOR CBC WITH PLATELETS & DIFFERENTIAL Routine 03/26/2023 6:54 AM AGENCY SALES DIRECTOR MAGNESIUM Routine 03/26/2023 6:54 AM AGENCY SALES DIRECTOR BASIC METABOLIC PANEL Routine 03/26/2023 6:54 AM AGENCY SALES DIRECTOR GLUCOSE BY METER Routine 03/25/2023 4:56 PM AGENCY SALES DIRECTOR US RENAL COMPLETE NON-VASCULAR Routine 03/25/2023 11:14 AM AGENCY SALES DIRECTOR CBC WITH PLATELETS AND DIFFERENTIAL Routine 03/25/2023 6:54 AM AGENCY SALES DIRECTOR CBC WITH PLATELETS & DIFFERENTIAL Routine 03/25/2023 6:54 AM AGENCY SALES DIRECTOR MAGNESIUM Routine 03/25/2023 6:54 AM AGENCY SALES DIRECTOR BASIC METABOLIC PANEL Routine 03/25/2023 6:54 AM AGENCY SALES DIRECTOR EKG 12-LEAD, TRACING ONLY Routine 03/24/2023 3:35 PM AGENCY SALES DIRECTOR CBC WITH PLATELETS AND DIFFERENTIAL Routine 03/24/2023 7:04 AM AGENCY SALES DIRECTOR CBC WITH PLATELETS & DIFFERENTIAL Routine 03/24/2023 7:04 AM AGENCY SALES DIRECTOR PHOSPHORUS Routine 03/24/2023 7:04 AM AGENCY SALES DIRECTOR MAGNESIUM Routine 03/24/2023 7:04 AM AGENCY SALES DIRECTOR HEPATIC FUNCTION PANEL Routine 7:04 AM AGENCY SALES DIRECTOR BASIC METABOLIC PANEL Routine 03/24/2023 7:04 AM AGENCY SALES DIRECTOR XR ABDOMEN PORT 1 VIEW Routine 12:29 AM AGENCY SALES DIRECTOR LAPAROSCOPY, DIAGNOSTIC, BY GENERAL SURGERY 03/23/2023 6:19 PM AGENCY SALES DIRECTOR SBO (small bowel obstruction) (H) POTASSIUM Routine 03/23/2023 6:19 AM AGENCY SALES DIRECTOR MAGNESIUM Routine 03/23/2023 6:19 AM AGENCY SALES DIRECTOR COMPREHENSIVE METABOLIC PANEL Routine 03/23/2023 6:19 AM AGENCY SALES DIRECTOR CBC WITH PLATELETS Routine 03/23/2023 6: 19 AM AGENCY SALES DIRECTOR LACTIC ACID WHOLE BLOOD STAT 03/22/2023 5:05 PM AGENCY SALES DIRECTOR BASIC METABOLIC PANEL STAT 03/22/2023 5:05 PM AGENCY SALES DIRECTOR CBC WITH PLATELETS STAT 03/22/2023 5: 05 PM AGENCY SALES DIRECTOR documented in this encounter Results * (ABNORMAL) RBC and Platelet Morphology (03/27/2023 6:31 AM AGENCY SALES DIRECTOR) Platelet Assessment Platelets Clumped(A) Automated Count Confirmed. Platelet morphology is normal. 03/27/2023 7:27 AM AGENCY SALES DIRECTOR [facility] Acanthocytes 03/27/2023 7:27 AM AGENCY SALES DIRECTOR [facility] Merrill Rods 03/27/2023 7:27 AM AGENCY SALES DIRECTOR [facility] Basophilic Stippling 03/27/2023 7:27 AM AGENCY SALES DIRECTOR [facility] Bite Cells 03/27/2023 7:27 AM AGENCY SALES DIRECTOR [facility] Blister Cells 03/27/2023 7:27 AM AGENCY SALES DIRECTOR [facility] Raya Cells 03/27/2023 7:27 AM AGENCY SALES DIRECTOR [facility] Elliptocytes 03/27/2023 7:27 AM AGENCY SALES DIRECTOR [facility] Hgb C Crystals 03/27/2023 7:27 AM AGENCY SALES DIRECTOR [facility] [place] Bodies 03/27/2023 7:27 AM AGENCY SALES DIRECTOR [facility] Hypersegmented Neutrophils 03/27/2023 7:27 AM AGENCY SALES DIRECTOR [facility] Polychromasia 03/27/2023 7:27 AM AGENCY SALES DIRECTOR [facility] RBC agglutination 023 7:27 AM AGENCY SALES DIRECTOR [facility] RBC Fragments 03/27/2023 7:27 AM AGENCY SALES DIRECTOR [facility] Reactive Lymphocytes 03/27/2023 7:27 AM AGENCY SALES DIRECTOR [facility] Rouleaux 03/27/2023 7:27 AM AGENCY SALES DIRECTOR [facility] Sickle Cells 03/27/2023 7:27 AM AGENCY SALES DIRECTOR [facility] Smudge Cells 03/27/2023 7:27 AM AGENCY SALES DIRECTOR [facility] Spherocytes 03/27/2023 7:27 AM AGENCY SALES DIRECTOR [facility] Stomatocytes 03/27/2023 7:27 AM AGENCY SALES DIRECTOR [facility] Target Cells 03/27/2023 7:27 AM AGENCY SALES DIRECTOR [facility] Teardrop Cells 03/27/2023 7:27 AM AGENCY SALES DIRECTOR [facility] Toxic Neutrophils 023 7:27 AM AGENCY SALES DIRECTOR [facility] RBC Morphology Confirmed RBC Indices 03/27/2023 7:27 AM AGENCY SALES DIRECTOR [facility] Blood STRUCTURE OF RIGHT UPPER LIMB / Unknown Venipuncture / Unknown 03/27/2023 6:31 AM AGENCY SALES DIRECTOR 03/27/2023 6:39 AM AGENCY SALES DIRECTOR Bernice Stearns MD LAB - BLOOD ORDER MILE [facility] [address] Lab (1st floor, no room number) [place] [address], [facility] [phone] * (ABNORMAL) CBC with platelets and differential (03/27/2023 6:31 AM AGENCY SALES DIRECTOR) WBC Count 6.9 4.0 - 11.0 10e3/uL 03/27/2023 7:29 AM AGENCY SALES DIRECTOR [facility] RBC Count 2.95(L) 3.80 - 5.20 10e6/uL 03/27/2023 7:29 AM AGENCY SALES DIRECTOR [facility] Hemoglobin 9.2(L) 11.7 - 15.7 g/dL 03/27/2023 7:29 AM AGENCY SALES DIRECTOR [facility] Hematocrit 29.6(L) 35.0 - 47.0 % 03/27/2023 7:29 AM AGENCY SALES DIRECTOR LABORATORY MCV 100 78 - 100 fL 03/27/2023 7:29 AM AGENCY SALES DIRECTOR LABORATORY MCH 31.2 26.5 - 33.0 pg 03/27/2023 7:29 AM AGENCY SALES DIRECTOR LABORATORY MCHC 31.1(L) 31.5 - 36.5 g/dL 03/27/2023 7:29 AM AGENCY SALES DIRECTOR LABORATORY RDW 13.9 10.0 - 15.0 % 03/27/2023 7:29 AM AGENCY SALES DIRECTOR [facility] Platelet Count 03/27/2023 7:29 AM AGENCY SALES DIRECTOR [facility] Comment:Platelets Clumped-Pl atelet Count Not Available % Neutrophils 62 % 03/27/2023 7:29 AM AGENCY SALES DIRECTOR [facility] % Lymphocytes 21 % 03/27/2023 7:29 AM AGENCY SALES DIRECTOR [facility] % Monocytes 14 % 03/27/2023 7:29 AM AGENCY SALES DIRECTOR [facility] % Eosinophils 1 % 03/27/2023 7:29 AM AGENCY SALES DIRECTOR [facility] % Basophils 1 % 03/27/2023 7:29 AM AGENCY SALES DIRECTOR [facility] % Immature Granulocytes 1 % 03/27/2023 7:29 AM AGENCY SALES DIRECTOR [facility] NRBCs per 100 WBC 0 <1 /100 023 7:29 AM AGENCY SALES DIRECTOR [facility] Absolute Neutrophils 4.4 1.6 - 8.3 10e3/uL 03/27/2023 7:29 AM AGENCY SALES DIRECTOR LABORATORY Absolute Lymphocytes 1.4 0.8 - 5.3 10e3/uL 03/27/2023 7:29 AM AGENCY SALES DIRECTOR LABORATORY Absolute Monocytes 0.9 0.0 - 1.3 10e3/uL 03/27/2023 7:29 AM AGENCY SALES DIRECTOR LABORATORY Absolute Eosinophils 0.0 0.0 - 0.7 10e3/uL 03/27/2023 7:29 AM AGENCY SALES DIRECTOR LABORATORY Absolute Basophils 0.0 0.0 - 0.2 10e3/uL 03/27/2023 7:29 AM AGENCY SALES DIRECTOR LABORATORY Absolute Immature Granulocytes 0.1 <=0.4 10e3/uL 03/27/2023 7:29 AM AGENCY SALES DIRECTOR LABORATORY Absolute NRBCs 0.0 10e3/uL 03/27/2023 7:29 AM AGENCY SALES DIRECTOR LABORATORY Blood STRUCTURE OF RIGHT UPPER LIMB / Unknown Venipuncture / Unknown 03/27/2023 6:31 AM AGENCY SALES DIRECTOR 03/27/2023 6:39 AM AGENCY SALES DIRECTOR Bernice Stearns MD LAB - BLOOD ORDER MILE LABORATORY [facility] [address] [facility] Lab (1st floor, no room number) [place] [address] [phone] * (ABNORMAL) Basic metabolic panel (03/27/2023 6:31 AM AGENCY SALES DIRECTOR) [facility] Sodium 134(L) 135 - 145 mmol/L 03/27/2023 6:59 AM [facility] Comment:Reference intervals for this test were updated on 01/24/2023 to more accurately reflect our healthy population. There may be differences in the flagging of prior results with similar values performed with this method. Interpretation of those prior results can be made in the context of the updated reference intervals. Potassium 4.1 3.4 - 5.3 mmol/L 03/27/2023 6:59 AM AGENCY SALES DIRECTOR LABORATORY Chloride 101 98 - 107 mmol/L 03/27/2023 6:59 AM [facility] Carbon Dioxide (CO2) 24 22 - 29 mmol/L 03/27/2023 6:59 AM AGENCY SALES DIRECTOR LABORATORY Anion Gap 9 7 - 15 mmol/L 03/27/2023 6:59 AM AGENCY SALES DIRECTOR LABORATORY Urea Nitrogen 15.5 8.0 - 23.0 mg/dL 03/27/2023 6:59 AM AGENCY SALES DIRECTOR LABORATORY Creatinine 0.84 0.51 - 0.95 mg/dL 03/27/2023 6:59 AM AGENCY SALES DIRECTOR LABORATORY GFR Estimate 72 >60 mL/min/1. 73m2 03/27/2023 6:59 AM AGENCY SALES DIRECTOR LABORATORY Calcium 8.5(L) 8.8 - 10.2 mg/dL 03/27/2023 6:59 AM AGENCY SALES DIRECTOR LABORATORY Glucose 102(H) 70 - 99 mg/dL 03/27/2023 6:59 AM AGENCY SALES DIRECTOR LABORATORY Blood STRUCTURE OF RIGHT UPPER LIMB / Unknown Venipuncture / Unknown 03/27/2023 6:31 AM AGENCY SALES DIRECTOR 03/27/2023 6:39 AM AGENCY SALES DIRECTOR Bernice Stearns MD LAB - BLOOD ORDER MILE [facility] [address] Lab (1st floor, no room number) [place] [address], [facility] [phone] * (ABNORMAL) Magnesium (03/27/2023 6:31 AM AGENCY SALES DIRECTOR) [facility] Signature Magnesium 1.6(L) 1.7 - 2.3 mg/dL 03/27/2023 6:59 AM AGENCY SALES DIRECTOR LABORATORY Blood STRUCTURE OF RIGHT UPPER LIMB / Unknown Venipuncture / Unknown 03/27/2023 6:31 AM AGENCY SALES DIRECTOR 03/27/2023 6:39 AM AGENCY SALES DIRECTOR Fransisco Licea MD LAB - BLOOD ORDERA BLES [facility] [address] Lab (1st floor, no room number) [place] [address], [facility] [phone] * (ABNORMAL) CBC with platelets and differential (03/26/2023 6:54 AM AGENCY SALES DIRECTOR) [facility] WBC Count 8.1 4.0 - 11.0 10e3/uL 03/26/2023 7:06 AM AGENCY SALES DIRECTOR RH LABORATORY RBC Count 2.80(L) 3.80 - 5.20 10e6/uL 03/26/2023 7:06 AM AGENCY SALES DIRECTOR RH LABORATORY Hemoglobin 8.8(L) 11.7 - 15.7 g/dL 03/26/2023 7:06 AM AGENCY SALES DIRECTOR RH LABORATORY Hematocrit 27.0(L) 35.0 - 47.0 % 03/26/2023 7:06 AM AGENCY SALES DIRECTOR RH LABORATORY MCV 96 78 - 100 fL 03/26/2023 7:06 AM AGENCY SALES DIRECTOR RH LABORATORY MCH 31.4 26.5 - 33.0 pg 03/26/2023 7:06 AM AGENCY SALES DIRECTOR RH LABORATORY MCHC 32.6 31.5 - 36.5 g/dL 03/26/2023 7:06 AM AGENCY SALES DIRECTOR RH LABORATORY RDW 13.6 10.0 - 15.0 % 03/26/2023 7:06 AM AGENCY SALES DIRECTOR RH LABORATORY Platelet Count 257 150 - 450 10e3/uL 03/26/2023 7:06 AM AGENCY SALES DIRECTOR RH LABORATORY % Neutrophils 73 % 03/26/2023 7:06 AM AGENCY SALES DIRECTOR RH LABORATORY % Lymphocytes 14 % 03/26/2023 7:06 AM AGENCY SALES DIRECTOR RH LABORATORY % Monocytes 12 % 03/26/2023 7:06 AM AGENCY SALES DIRECTOR RH LABORATORY % Eosinophils 0 % 03/26/2023 7:06 AM AGENCY SALES DIRECTOR RH LABORATORY % Basophils 0 % 03/26/2023 7:06 AM AGENCY SALES DIRECTOR RH LABORATORY % Immature Granulocytes 1 % 03/26/2023 7:06 AM AGENCY SALES DIRECTOR RH LABORATORY NRBCs per 100 WBC 0 <1 /100 023 7:06 AM AGENCY SALES DIRECTOR RH LABORATORY Absolute Neutrophils 5.9 1.6 - 8.3 10e3/uL 03/26/2023 7:06 AM AGENCY SALES DIRECTOR RH LABORATORY Absolute Lymphocytes 1.1 0.8 - 5.3 10e3/uL 03/26/2023 7:06 AM AGENCY SALES DIRECTOR RH LABORATORY Absolute Monocytes 0.9 0.0 - 1.3 10e3/uL 03/26/2023 7:06 AM AGENCY SALES DIRECTOR RH LABORATORY Absolute Eosinophils 0.0 0.0 - 0.7 10e3/uL 03/26/2023 7:06 AM AGENCY SALES DIRECTOR RH LABORATORY Absolute Basophils 0.0 0.0 - 0.2 10e3/uL 03/26/2023 7:06 AM AGENCY SALES DIRECTOR RH LABORATORY Absolute Immature Granulocytes 0.1 <=0.4 10e3/uL 03/26/2023 7:06 AM AGENCY SALES DIRECTOR RH LABORATORY Absolute NRBCs 0.0 10e3/uL 03/26/2023 7:06 AM AGENCY SALES DIRECTOR RH LABORATORY Blood STRUCTURE OF RIGHT UPPER LIMB / Unknown Venipuncture / Unknown 03/26/2023 6:54 AM AGENCY SALES DIRECTOR 03/26/2023 7:02 AM AGENCY SALES DIRECTOR Bernice Stearns MD LAB - BLOOD ORDER MILE LABORATORY [facility] Lab [address] Lab (1st floor, no room number) [place] [phone], [facility] [phone] * Magnesium (03/26/2023 6:54 AM AGENCY SALES DIRECTOR) Magnesium 1.8 1.7 - 2.3 mg/dL 03/26/2023 7:22 AM AGENCY SALES DIRECTOR RH LABORATORY Blood STRUCTURE OF RIGHT UPPER LIMB / Unknown Venipuncture / Unknown 03/26/2023 6:54 AM AGENCY SALES DIRECTOR 03/26/2023 7:02 AM AGENCY SALES DIRECTOR Bernice Stearns MD LAB - BLOOD ORDER MILE LABORATORY [facility] Lab [address] Lab (1st floor, no room number) [place] [phone], [place] [phone] * (ABNORMAL) Basic metabolic panel (03/26/2023 6:54 AM AGENCY SALES DIRECTOR) Sodium 135 135 - 145 mmol/L 03/26/2023 7:22 AM AGENCY SALES DIRECTOR RH LABORATORY Comment:Reference intervals for this test were updated on 01/24/2023 to more accurately reflect our healthy population. There may be differences in the flagging of prior results with similar values performed with this method. Interpretation of those prior results can be made in the context of the updated reference intervals. Potassium 4.6 3.4 - 5.3 mmol/L 03/26/2023 7:22 AM [facility] Chloride 101 98 - 107 mmol/L 03/26/2023 7:22 AM [facility] Carbon Dioxide (CO2) 26 22 - 29 mmol/L 03/26/2023 7:22 AM [facility] Anion Gap 8 7 - 15 mmol/L 03/26/2023 7:22 AM [facility] Urea Nitrogen 21.8 8.0 - 23.0 mg/dL 03/26/2023 7:22 AM [facility] Creatinine 0.99(H) 0.51 - 0.95 mg/dL 03/26/2023 7:22 AM [facility] GFR Estimate 59(L) >60 mL/min/1. 73m2 03/26/2023 7:22 AM [facility] Calcium 8.9 8.8 - 10.2 mg/dL 03/26/2023 7:22 AM [facility] Glucose 121(H) 70 - 99 mg/dL 03/26/2023 7:22 AM [facility] Blood STRUCTURE OF RIGHT UPPER LIMB / Unknown Venipuncture / Unknown 03/26/2023 6:54 AM AGENCY SALES DIRECTOR 03/26/2023 7:02 AM AGENCY SALES DIRECTOR Bernice Stearns MD LAB - BLOOD ORDER MILE [facility] Lab [address] [facility] Lab (1st floor, no room number) [place] [address], [facility] [phone] * (ABNORMAL) Glucose by meter (03/25/2023 4:56 PM AGENCY SALES DIRECTOR) [facility] GLUCOSE BY METER POCT 119(H) 70 - 99 mg/dL 03/25/2023 5:04 PM AGENCY SALES DIRECTOR LABORATORY POC Blood, Capillary BLOOD SPECIMEN / Unknown 03/25/2023 4:56 PM AGENCY SALES DIRECTOR 03/25/2023 5:04 PM AGENCY SALES DIRECTOR Fransisco Licea MD LAB - BEAKER POCT [facility] Acute Care Lab [address] Lab (1st floor, no room number) [place] [address], [facility] [phone] * US Renal Complete Non-Vascular (03/25/2023 11:14 AM AGENCY SALES DIRECTOR) Anatomical Region Laterality Modality Abdomen/Pelvis Ultrasound 03/25/2023 11:1 4 AM AGENCY SALES DIRECTOR Impressions 03/25/2023 3:04 PM AGENCY SALES DIRECTOR IMPRESSION: 1. ??Normal kidney ultrasound. Narrative 03/25/2023 3:04 PM AGENCY SALES DIRECTOR EXAM: US RENAL COMPLETE NON-VASCULAR LOCATION: [facility] DATE: 03/25/2023 INDICATION: BRICE post op abdominal surgery, rule out obstruction COMPARISON: None. TECHNIQUE: Routine Bilateral Renal and Bladder Ultrasound. FINDINGS: RIGHT KIDNEY: 10.2 cm. Normal without hydronephrosis or masses. LEFT KIDNEY: 11.1 cm. Normal without hydronephrosis or masses. BLADDER: Normal. Procedure Note Kirby Diamond MD - 03/25/2023 EXAM: US RENAL COMPLETE NON-VASCULAR LOCATION: [facility] DATE: 03/25/2023 INDICATION: BRICE post op abdominal surgery, rule out obstruction COMPARISON: None. TECHNIQUE: Routine Bilateral Renal and Bladder Ultrasound. FINDINGS: RIGHT KIDNEY: 10.2 cm. Normal without hydronephrosis or masses. LEFT KIDNEY: 11.1 cm. Normal without hydronephrosis or masses. BLADDER: Normal. IMPRESSION: 1. Normal kidney ultrasound. Bernice Stearns MD IMG US ORDERABLES * (ABNORMAL) CBC with platelets and differential (03/25/2023 6:54 AM AGENCY SALES DIRECTOR) WBC Count 11.0 4.0 - 11.0 10e3/uL 03/25/2023 7:25 AM AGENCY SALES DIRECTOR RH LABORATORY RBC Count 2.90(L) 3.80 - 5.20 10e6/uL 03/25/2023 7:25 AM AGENCY SALES DIRECTOR RH LABORATORY Hemoglobin 9.1(L) 11.7 - 15.7 g/dL 03/25/2023 7:25 AM AGENCY SALES DIRECTOR RH LABORATORY Hematocrit 28.3(L) 35.0 - 47.0 % 03/25/2023 7:25 AM AGENCY SALES DIRECTOR RH LABORATORY MCV 98 78 - 100 fL 03/25/2023 7:25 AM AGENCY SALES DIRECTOR RH LABORATORY MCH 31.4 26.5 - 33.0 pg 03/25/2023 7:25 AM AGENCY SALES DIRECTOR RH LABORATORY MCHC 32.2 31.5 - 36.5 g/dL 03/25/2023 7:25 AM AGENCY SALES DIRECTOR RH LABORATORY RDW 13.8 10.0 - 15.0 % 03/25/2023 7:25 AM AGENCY SALES DIRECTOR RH LABORATORY Platelet Count 220 150 - 450 10e3/uL 03/25/2023 7:25 AM AGENCY SALES DIRECTOR RH LABORATORY % Neutrophils 74 % 03/25/2023 7:25 AM AGENCY SALES DIRECTOR RH LABORATORY % Lymphocytes 11 % 03/25/2023 7:25 AM AGENCY SALES DIRECTOR RH LABORATORY % Monocytes 14 % 03/25/2023 7:25 AM AGENCY SALES DIRECTOR RH LABORATORY % Eosinophils 0 % 03/25/2023 7:25 AM AGENCY SALES DIRECTOR RH LABORATORY % Basophils 0 % 03/25/2023 7:25 AM AGENCY SALES DIRECTOR RH LABORATORY % Immature Granulocytes 1 % 03/25/2023 7:25 AM AGENCY SALES DIRECTOR RH LABORATORY NRBCs per 100 WBC 0 <1 /100 023 7:25 AM AGENCY SALES DIRECTOR RH LABORATORY Absolute Neutrophils 8.2 1.6 - 8.3 10e3/uL 03/25/2023 7:25 AM AGENCY SALES DIRECTOR RH LABORATORY Absolute Lymphocytes 1.2 0.8 - 5.3 10e3/uL 03/25/2023 7:25 AM AGENCY SALES DIRECTOR RH LABORATORY Absolute Monocytes 1.5(H) 0.0 - 1.3 10e3/uL 03/25/2023 7:25 AM AGENCY SALES DIRECTOR RH LABORATORY Absolute Eosinophils 0.0 0.0 - 0.7 10e3/uL 03/25/2023 7:25 AM AGENCY SALES DIRECTOR RH LABORATORY Absolute Basophils 0.0 0.0 - 0.2 10e3/uL 03/25/2023 7:25 AM AGENCY SALES DIRECTOR RH LABORATORY Absolute Immature Granulocytes 0.1 <=0.4 10e3/uL 03/25/2023 7:25 AM AGENCY SALES DIRECTOR RH LABORATORY Absolute NRBCs 0.0 10e3/uL 03/25/2023 7:25 AM AGENCY SALES DIRECTOR RH LABORATORY Blood STRUCTURE OF RIGHT HAND / Unknown Venipuncture / Unknown 03/25/2023 6:54 AM AGENCY SALES DIRECTOR 03/25/2023 7:22 AM AGENCY SALES DIRECTOR Bernice Stearns MD LAB - BLOOD ORDER MILE RH LABORATORY [facility] Lab [address] [facility] Lab (1st floor, no room number) [place] [address], [facility] [phone] * (ABNORMAL) Basic metabolic panel (03/25/2023 6:54 AM AGENCY SALES DIRECTOR) Sodium 133(L) 135 - 145 mmol/L 03/25/2023 7:41 AM [facility] Comment:Reference intervals for this test were updated on 01/24/2023 to more accurately reflect our healthy population. There may be differences in the flagging of prior results with similar values performed with this method. Interpretation of those prior results can be made in the context of the updated reference intervals. Potassium 4.6 3.4 - 5.3 mmol/L 03/25/2023 7:41 AM [facility] Chloride 98 98 - 107 mmol/L 03/25/2023 7:41 AM [facility] Carbon Dioxide (CO2) 25 22 - 29 mmol/L 03/25/2023 7:41 AM [facility] Anion Gap 10 7 - 15 mmol/L 03/25/2023 7:41 AM [facility] Urea Nitrogen 42.9(H) 8.0 - 23.0 mg/dL 03/25/2023 7:41 AM [facility] Creatinine 1.62(H) 0.51 - 0.95 mg/dL 03/25/2023 7:41 AM [facility] GFR Estimate 33(L) >60 mL/min/1. 73m2 03/25/2023 7:41 AM [facility] Calcium 8.6(L) 8.8 - 10.2 mg/dL 03/25/2023 7:41 AM [facility] Glucose 106(H) 70 - 99 mg/dL 03/25/2023 7:41 AM [facility] Blood STRUCTURE OF RIGHT HAND / Unknown Venipuncture / Unknown 03/25/2023 6:54 AM AGENCY SALES DIRECTOR 03/25/2023 7:22 AM AGENCY SALES DIRECTOR Bernice Stearns MD LAB - BLOOD ORDER MILE [facility] Lab [address] Lab (1st floor, no room number) [place] [address], [place] [phone] * Magnesium (03/25/2023 6:54 AM AGENCY SALES DIRECTOR) Magnesium 1.8 1.7 - 2.3 mg/dL 03/25/2023 7:42 AM AGENCY SALES DIRECTOR LABORATORY Blood STRUCTURE OF RIGHT HAND / Unknown Venipuncture / Unknown 03/25/2023 6:54 AM AGENCY SALES DIRECTOR 03/25/2023 7:22 AM AGENCY SALES DIRECTOR Bernice Stearns MD LAB - BLOOD ORDER MILE Performing Organization Address [facility] Co de Phone Number [facility] [address] Lab (1st floor, no room number) [place] [address], [place] [phone] * EKG 12-lead, tracing only (03/24/2023 3:35 PM AGENCY SALES DIRECTOR) Systolic Blood Pressure mmHg RADIOLOGY RESULTS Diastolic Blood Pressure mmHg RADIOLOGY RESULTS Ventricular Rate 102 BPM RAD IOLOGY RESULTS Atrial Rate 102 BPM RADIOLOG Y RESULTS NE Interval 178 ms RADIOLOG Y RESULTS QRS Duration 88 ms RADIOLO GY RESULTS QT 354 ms RADIOLOGY RESULTS QTc 461 ms RADIOLOGY RESULTS P [place] 72 degrees RADIOLOGY RESULTS R AXIS 75 degrees RADIOLOGY RESULTS T [place] 74 degrees RADIOLOGY RESULTS Interpretation ECG Sinus tachycardia Possible Left atrial enlargement Cannot rule out Anterior infarct , age undetermined Abnormal ECG No previous ECGs available IVCD in inferior leads Confirmed by MD TERRI, MERRILL ([id number]), film editor Tremaine Brown ([id number]) on 03/27/2023 11:15:18 AM RADIOLOGY RESULTS 03/24/2023 3:35 PM AGENCY SALES DIRECTOR 03/27/2023 11:15 AM AGENCY SALES DIRECTOR Bernice Stearns MD ECG ORDERABLES RADIOLOGY RESULTS * (ABNORMAL) CBC with platelets and differential (03/24/2023 7:04 AM AGENCY SALES DIRECTOR) WBC Count 14.8(H) 4.0 - 11.0 10e3/uL 03/24/2023 7:25 AM AGENCY SALES DIRECTOR [facility] LAB[facility]AT[facility] RBC Count 3.40(L) 3.80 - 5.20 10e6/uL 03/24/2023 7:25 AM AGENCY SALES DIRECTOR [facility] LABORAT[facility] Hemoglobin 10.8(L) 11.7 - 15.7 g/dL 03/24/2023 7:25 AM AGENCY SALES DIRECTOR [facility] LABORATORY Hematocrit 33.7(L) 35.0 - 47.0 % 03/24/2023 7:25 AM AGENCY SALES DIRECTOR [facility] LABORATORY MCV 99 78 - 100 fL 03/24/2023 7:25 AM AGENCY SALES DIRECTOR [facility] LABORATORY MCH 31.8 26.5 - 33.0 pg 03/24/2023 7:25 AM AGENCY SALES DIRECTOR [facility] LABORATORY MCHC 32.0 31.5 - 36.5 g/dL 03/24/2023 7:25 AM AGENCY SALES DIRECTOR [facility] LABORATORY RDW 13.6 10.0 - 15.0 % 03/24/2023 7:25 AM AGENCY SALES DIRECTOR [facility] LABORAT[facility] Platelet Count 210 150 - 450 10e3/uL 03/24/2023 7:25 AM AGENCY SALES DIRECTOR [facility] LABORAT[facility] % Neutrophils 85 % 03/24/2023 7:25 AM AGENCY SALES DIRECTOR [facility] LABORAT[facility] % Lymphocytes 5 % 03/24/2023 7:25 AM AGENCY SALES DIRECTOR [facility] LAB[facility]AT[facility] % Monocytes 10 % 03/24/2023 7:25 AM AGENCY SALES DIRECTOR [facility] LAB[facility]AT[facility] % Eosinophils 0 % 03/24/2023 7:25 AM AGENCY SALES DIRECTOR [facility] LAB[facility]AT[facility] % Basophils 0 % 03/24/2023 7:25 AM AGENCY SALES DIRECTOR [facility] LAB[facility]AT[facility] % Immature Granulocytes 0 % 03/24/2023 7:25 AM AGENCY SALES DIRECTOR [facility] LABORATORY NRBCs per 100 WBC 0 <1 /100 023 7:25 AM AGENCY SALES DIRECTOR [facility] LABORAT[facility] Absolute Neutrophils 12.6(H) 1.6 - 8.3 10e3/uL 03/24/2023 7:25 AM AGENCY SALES DIRECTOR [facility] LABORAT[facility] Absolute Lymphocytes 0.7(L) 0.8 - 5.3 10e3/uL 03/24/2023 7:25 AM AGENCY SALES DIRECTOR [facility] LABORAT[facility] Absolute Monocytes 1.5(H) 0.0 - 1.3 10e3/uL 03/24/2023 7:25 AM AGENCY SALES DIRECTOR [facility] LABORAT[facility] Absolute Eosinophils 0.0 0.0 - 0.7 10e3/uL 03/24/2023 7:25 AM AGENCY SALES DIRECTOR [facility] LABORAT[facility] Absolute Basophils 0.0 0.0 - 0.2 10e3/uL 03/24/2023 7:25 AM AGENCY SALES DIRECTOR [facility] LABORAT[facility] Absolute Immature Granulocytes 0.1 <=0.4 10e3/uL 03/24/2023 7:25 AM AGENCY SALES DIRECTOR [facility] LABORAT[facility] Absolute NRBCs 0.0 10e3/uL 03/24/2023 7:25 AM AGENCY SALES DIRECTOR [facility] LAB[facility] Blood BLOOD SPECIMEN / Unknown Venipuncture / Unknown 03/24/2023 7:04 AM AGENCY SALES DIRECTOR 03/24/2023 7:22 AM AGENCY SALES DIRECTOR Cody Villarreal MD LAB - BLOOD ORDERABL ES [facility] [address] Lab (1st floor, no room number) [place] [address], [facility] [phone] * (ABNORMAL) Phosphorus (03/24/2023 7:04 AM AGENCY SALES DIRECTOR) Phosphorus 4.7(H) 2.5 - 4.5 mg/dL 03/24/2023 7:44 AM AGENCY SALES DIRECTOR LABORATORY Blood BLOOD SPECIMEN / Unknown Venipuncture / Unknown 03/24/2023 7:04 AM AGENCY SALES DIRECTOR 03/24/2023 7:22 AM AGENCY SALES DIRECTOR Cody Villarreal MD LAB - BLOOD ORDERABL ES [facility] Lab [address] Lab (1st floor, no room number) [place] [address], [facility] [phone] * (ABNORMAL) Hepatic function panel (03/24/2023 7:04 AM AGENCY SALES DIRECTOR) Protein Total 6.1(L) 6.4 - 8.3 g/dL 03/24/2023 7:44 AM AGENCY SALES DIRECTOR LABORATORY Albumin 3.2(L) 3.5 - 5.2 g/dL 03/24/2023 7:44 AM AGENCY SALES DIRECTOR [facility] LAB[facility] Bilirubin Total 0.8 <=1.2 mg/dL 03/24/2023 7:44 AM AGENCY SALES DIRECTOR [facility] Alkaline Phosphatase 113 40 - 150 U/L 03/24/2023 7:44 AM AGENCY SALES DIRECTOR [facility] Comment:Reference intervals for this test were updated on 03/14/2023 to more accurately reflect our healthy population. There may be differences in the flagging of prior results with similar values performed with this method. Interpretation of those prior results can be made in the context of the updated reference intervals. AST 64(H) 0 - 45 U/L 03/24/2023 7:44 AM AGENCY SALES DIRECTOR [facility] Comment:Reference intervals for this test were updated on 10/10/2022 to more accurately reflect our healthy population. There may be differences in the flagging of prior results with similar values performed with this method. Interpretation of those prior results can be made in the context of the updated reference intervals. ALT 58(H) 0 - 50 U/L 03/24/2023 7:44 AM AGENCY SALES DIRECTOR [facility] Comment:Reference intervals for this test were updated on 10/10/2022 to more accurately reflect our healthy population. There may be differences in the flagging of prior results with similar values performed with this method. Interpretation of those prior results can be made in the context of the updated reference intervals. Bilirubin Direct 0.35(H) 0.00 - 0.30 mg/dL 03/24/2023 7:44 AM AGENCY SALES DIRECTOR [facility] Blood BLOOD SPECIMEN / Unknown Venipuncture / Unknown 03/24/2023 7:04 AM AGENCY SALES DIRECTOR 03/24/2023 7:22 AM AGENCY SALES DIRECTOR Cody Villarreal MD LAB - BLOOD ORDERABL ES LABORATORY [facility] [address] (1st floor, no room number) [place] [address], [facility] [phone] * (ABNORMAL) Basic metabolic panel (03/24/2023 7:04 AM AGENCY SALES DIRECTOR) Sodium 136 135 - 145 mmol/L 03/24/2023 7:44 AM AGENCY SALES DIRECTOR [facility] Comment:Reference intervals for this test were updated on 01/24/2023 to more accurately reflect our healthy population. There may be differences in the flagging of prior results with similar values performed with this method. Interpretation of those prior results can be made in the context of the updated reference intervals. Potassium 4.5 3.4 - 5.3 mmol/L 03/24/2023 7:44 AM [facility] Chloride 101 98 - 107 mmol/L 03/24/2023 7:44 AM [facility] Carbon Dioxide (CO2) 24 22 - 29 mmol/L 03/24/2023 7:44 AM [facility] Anion Gap 11 7 - 15 mmol/L 03/24/2023 7:44 AM [facility] Urea Nitrogen 26.1(H) 8.0 - 23.0 mg/dL 03/24/2023 7:44 AM [facility] Creatinine 1.06(H) 0.51 - 0.95 mg/dL 03/24/2023 7:44 AM [facility] GFR Estimate 54(L) >60 mL/min/1. 73m2 03/24/2023 7:44 AM [facility] Calcium 8.3(L) 8.8 - 10.2 mg/dL 03/24/2023 7:44 AM [facility] Glucose 89 70 - 99 mg/dL 03/24/2023 7:44 AM [facility] Blood BLOOD SPECIMEN / Unknown Venipuncture / Unknown 03/24/2023 7:04 AM AGENCY SALES DIRECTOR 03/24/2023 7:22 AM AGENCY SALES DIRECTOR Cody Villarreal MD LAB - BLOOD ORDERABL ES [facility] LABORATORY [facility] Lab [address] Lab (1st floor, no room number) [place] [address], [facility] [phone] * Magnesium (03/24/2023 7:04 AM AGENCY SALES DIRECTOR) Magnesium 1.7 1.7 - 2.3 mg/dL 03/24/2023 7:46 AM [facility] Blood BLOOD SPECIMEN / Unknown Venipuncture / Unknown 03/24/2023 7:04 AM AGENCY SALES DIRECTOR 03/24/2023 7:22 AM AGENCY SALES DIRECTOR Cody Villarreal MD LAB - BLOOD ORDERABL ES [facility] [address] Lab (1st floor, no room number) [place] [address], [facility] [phone] * XR Abdomen Port 1 View (03/24/2023 12:29 AM AGENCY SALES DIRECTOR) Anatomical Region Laterality Modality Abdomen/Pelvis Digital Radiogra phy 03/24/2023 12:2 9 AM AGENCY SALES DIRECTOR Impressions 03/24/2023 12:31 AM AGENCY SALES DIRECTOR IMPRESSION: NG tube side-port is at the EG junction and should be advanced approximately 8 cm. Prior postoperative changes. Normal bowel gas pattern. Significant thoracolumbar curvature convex to the left. Narrative 03/24/2023 12:31 AM AGENCY SALES DIRECTOR EXAM: XR ABDOMEN PORT 1 VIEW LOCATION: [facility] DATE: 03/24/2023 INDICATION: confirm NG placement for decompression COMPARISON: None. Procedure Note Davy Arnold MD - 03/24/2023 EXAM: XR ABDOMEN PORT 1 VIEW LOCATION: [facility] DATE: 03/24/2023 INDICATION: confirm NG placement for decompression COMPARISON: None. IMPRESSION: NG tube side-port is at the EG junction and should be advancedapproximately 8 cm. Prior postoperative changes. Normal bowel gas pattern.Significant thoracolumbar curvature convex to the left. Cody Villarreal MD IMG DIAGNOSTIC IMAGI NG ORDERABLES * Magnesium (03/23/2023 6:19 AM AGENCY SALES DIRECTOR) Magnesium 1.8 1.7 - 2.3 mg/dL 03/23/2023 7:44 AM AGENCY SALES DIRECTOR LABORATORY Blood STRUCTURE OF LEFT UPPER LIMB / Unknown Venipuncture / Unknown 03/23/2023 6:19 AM AGENCY SALES DIRECTOR 03/23/2023 6:34 AM AGENCY SALES DIRECTOR Bernice Stearns MD LAB - BLOOD ORDER MILE RH LABORATORY [facility] [address] Lab (1st floor, no room number) [place] [address], [facility] [phone] * Potassium (03/23/2023 6:19 AM AGENCY SALES DIRECTOR) Potassium 4.3 3.4 - 5.3 mmol/L 03/23/2023 7:32 AM AGENCY SALES DIRECTOR [facility] LABORATORY Blood STRUCTURE OF LEFT UPPER LIMB / Unknown Venipuncture / Unknown 03/23/2023 6:19 AM AGENCY SALES DIRECTOR 03/23/2023 6:34 AM AGENCY SALES DIRECTOR Bernice Stearns MD LAB - BLOOD ORDER MILE Performing Organization Address [facility]/State/ZIP Co de Phone Number LABORATORY [facility] [address] Lab (1st floor, no room number) [place] [address], [facility] [phone] * (ABNORMAL) CBC with platelets (03/23/2023 6:19 AM AGENCY SALES DIRECTOR) WBC Count 9.4 4.0 - 11.0 10e3/uL 03/23/2023 6:37 AM AGENCY SALES DIRECTOR [facility] LABORATORY RBC Count 3.76(L) 3.80 - 5.20 10e6/uL 03/23/2023 6:37 AM AGENCY SALES DIRECTOR [facility] LABORATORY Hemoglobin 11.8 11.7 - 15.7 g/dL 03/23/2023 6:37 AM AGENCY SALES DIRECTOR [facility] LABORATORY Hematocrit 36.6 35.0 - 47.0 % 03/23/2023 6:37 AM AGENCY SALES DIRECTOR RH LABORATORY MCV 97 78 - 100 fL 03/23/2023 6:37 AM AGENCY SALES DIRECTOR RH LABORATORY MCH 31.4 26.5 - 33.0 pg 03/23/2023 6:37 AM AGENCY SALES DIRECTOR RH LABORATORY MCHC 32.2 31.5 - 36.5 g/dL 03/23/2023 6:37 AM AGENCY SALES DIRECTOR RH LABORATORY RDW 13.6 10.0 - 15.0 % 03/23/2023 6:37 AM AGENCY SALES DIRECTOR RH LABORATORY Platelet Count 256 150 - 450 10e3/uL 03/23/2023 6:37 AM [facility] Blood STRUCTURE OF LEFT UPPER LIMB / Unknown Venipuncture / Unknown 03/23/2023 6:19 AM AGENCY SALES DIRECTOR 03/23/2023 6:34 AM AGENCY SALES DIRECTOR Radha Blood MD LAB - BLOOD ORDERABL ES RH LABORATORY [facility] [address] Lab (1st floor, no room number) [place] [address] [phone] * (ABNORMAL) Comprehensive metabolic panel (03/23/2023 6:19 AM AGENCY SALES DIRECTOR) Pathologist [facility] Sodium 137 135 - 145 mmol/L 03/23/2023 6:55 AM [facility] Comment:Reference intervals for this test were updated on 01/24/2023 to more accurately reflect our healthy population. There may be differences in the flagging of prior results with similar values performed with this method. Interpretation of those prior results can be made in the context of the updated reference intervals. Potassium 4.3 3.4 - 5.3 mmol/L 03/23/2023 6:55 AM [facility] Carbon Dioxide (CO2) 24 22 - 29 mmol/L 03/23/2023 6:55 AM [facility] Anion Gap 10 7 - 15 mmol/L 03/23/2023 6:55 AM [facility] Urea Nitrogen 20.3 8.0 - 23.0 mg/dL 03/23/2023 6:55 AM [facility] Creatinine 0.91 0.51 - 0.95 mg/dL 03/23/2023 6:55 AM [facility] GFR Estimate 65 >60 mL/min/1. 73m2 03/23/2023 6:55 AM [facility] Calcium 8.4(L) 8.8 - 10.2 mg/dL 03/23/2023 6:55 AM [facility] Chloride 103 98 - 107 mmol/L 03/23/2023 6:55 AM [facility] Glucose 102(H) 70 - 99 mg/dL 03/23/2023 6:55 AM [facility] Alkaline Phosphatase 140 40 - 150 U/L 03/23/2023 6:55 AM AGENCY SALES DIRECTOR RH LABORATORY Comment:Reference intervals for this test were updated on 03/14/2023 to more accurately reflect our healthy population. There may be differences in the flagging of prior results with similar values performed with this method. Interpretation of those prior results can be made in the context of the updated reference intervals. AST 114(H) 0 - 45 U/L 03/23/2023 6:55 AM AGENCY SALES DIRECTOR [facility] LABORATORY Comment:Reference intervals for this test were updated on 10/10/2022 to more accurately reflect our healthy population. There may be differences in the flagging of prior results with similar values performed with this method. Interpretation of those prior results can be made in the context of the updated reference intervals. ALT 95(H) 0 - 50 U/L 03/23/2023 6:55 AM AGENCY SALES DIRECTOR [facility] LAB[facility] Comment:Reference intervals for this test were updated on 10/10/2022 to more accurately reflect our healthy population. There may be differences in the flagging of prior results with similar values performed with this method. Interpretation of those prior results can be made in the context of the updated reference intervals. Protein Total 6.7 6.4 - 8.3 g/dL 03/23/2023 6:55 AM AGENCY SALES DIRECTOR [facility] LABORAT[facility] Albumin 3.7 3.5 - 5.2 g/dL 03/23/2023 6:55 AM AGENCY SALES DIRECTOR [facility] LABORAT[facility] Bilirubin Total 0.7 <=1.2 mg/dL 03/23/2023 6:55 AM AGENCY SALES DIRECTOR [facility] LAB[facility] Blood STRUCTURE OF LEFT UPPER LIMB / Unknown Venipuncture / Unknown 03/23/2023 6:19 AM AGENCY SALES DIRECTOR 03/23/2023 6:34 AM AGENCY SALES DIRECTOR Radha Blood MD LAB - BLOOD ORDERABL ES RH LABORATORY [facility] [address] [facility] Lab (1st floor, no room number) [place] [address], [facility] [phone] * Lactic acid whole blood (03/22/2023 5:05 PM AGENCY SALES DIRECTOR) Lactic Acid 0.9 0.7 - 2.0 mmol/L 03/22/2023 5:22 PM AGENCY SALES DIRECTOR RH LABORATORY Blood STRUCTURE OF RIGHT UPPER LIMB / Unknown Venipuncture / Unknown 03/22/2023 5:05 PM AGENCY SALES DIRECTOR 03/22/2023 5:11 PM AGENCY SALES DIRECTOR Radha Blood MD LAB - BLOOD ORDERABL ES RH LABORATORY [facility] [address] Lab (1st floor, no room number) [place] [address], [facility] [phone] * (ABNORMAL) CBC with platelets (03/22/2023 5:05 PM AGENCY SALES DIRECTOR) WBC Count 8.1 4.0 - 11.0 10e3/uL 03/22/2023 5:15 PM AGENCY SALES DIRECTOR [facility] LABORAT[facility] RBC Count 3.57(L) 3.80 - 5.20 10e6/uL 03/22/2023 5:15 PM AGENCY SALES DIRECTOR [facility] LAB[facility] Hemoglobin 11.2(L) 11.7 - 15.7 g/dL 03/22/2023 5:15 PM AGENCY SALES DIRECTOR [facility] LAB[facility] Hematocrit 34.5(L) 35.0 - 47.0 % 03/22/2023 5:15 PM AGENCY SALES DIRECTOR [facility] LAB[facility] MCV 97 78 - 100 fL 03/22/2023 5:15 PM AGENCY SALES DIRECTOR [facility] LAB[facility] MCH 31.4 26.5 - 33.0 pg 03/22/2023 5:15 PM AGENCY SALES DIRECTOR [facility] LAB[facility]AT[facility] MCHC 32.5 31.5 - 36.5 g/dL 03/22/2023 5:15 PM AGENCY SALES DIRECTOR [facility] LABORAT[facility] RDW 13.4 10.0 - 15.0 % 03/22/2023 5:15 PM AGENCY SALES DIRECTOR [facility] LAB[facility]AT[facility] Platelet Count 231 150 - 450 10e3/uL 03/22/2023 5:15 PM AGENCY SALES DIRECTOR [facility] LAB[facility]AT[facility] Blood STRUCTURE OF RIGHT UPPER LIMB / Unknown Venipuncture / Unknown 03/22/2023 5:05 PM AGENCY SALES DIRECTOR 03/22/2023 5:11 PM AGENCY SALES DIRECTOR Radha Blood MD LAB - BLOOD ORDERABL ES LABORATORY [facility] [address] Lab (1st floor, no room number) [place] [address], [facility] [phone] * (ABNORMAL) Basic metabolic panel (03/22/2023 5:05 PM AGENCY SALES DIRECTOR) Sodium 134(L) 135 - 145 mmol/L 03/22/2023 5:41 PM [facility] Comment:Reference intervals for this test were updated on 01/24/2023 to more accurately reflect our healthy population. There may be differences in the flagging of prior results with similar values performed with this method. Interpretation of those prior results can be made in the context of the updated reference intervals. Potassium 4.4 3.4 - 5.3 mmol/L 03/22/2023 5:41 PM [facility] Chloride 101 98 - 107 mmol/L 03/22/2023 5:41 PM [facility] Carbon Dioxide (CO2) 28 22 - 29 mmol/L 03/22/2023 5:41 PM [facility] Anion Gap 5(L) 7 - 15 mmol/L 03/22/2023 5:41 PM [facility] Urea Nitrogen 21.3 8.0 - 23.0 mg/dL 03/22/2023 5:41 PM [facility] Creatinine 0.93 0.51 - 0.95 mg/dL 03/22/2023 5:41 PM [facility] GFR Estimate 63 >60 mL/min/1. 73m2 03/22/2023 5:41 PM [facility] Calcium 8.3(L) 8.8 - 10.2 mg/dL 03/22/2023 5:41 PM [facility] Glucose 106(H) 70 - 99 mg/dL 03/22/2023 5:41 PM [facility] Blood STRUCTURE OF RIGHT UPPER LIMB / Unknown Venipuncture / Unknown 03/22/2023 5:05 PM AGENCY SALES DIRECTOR 03/22/2023 5:11 PM AGENCY SALES DIRECTOR Radha Blood MD LAB - BLOOD ORDERABL ES LABORATORY [facility] [address] Lab (1st floor, no room number) [place] [address], [facility] [phone] documented in this encounter Visit Diagnoses Diagnosis SBO (small bowel obstruction) (H)- Primary Unspecified intestinal obstruction SBO (small bowel obstruction) (H) Unspecified intestinal obstruction Acute kidney failure, unspecified (H) Acute kidney failure, unspecified documented in this encounter Admitting Diagnoses Diagnosis SBO (small bowel obstruction) (H) Unspecified intestinal obstruction documented in this encounter Administered Medications Inactive Administered Medications - up to 3 most recent administrations Medication Order MAR Action Action Date Dose Rate Site acetaminophen (TYLENOL) tablet 650 mg 650 mg, Oral, EVERY 6 HOURS PRN, fever, Starting on Mon03/26/23 at 1137, Maximum acetaminophen dose from all sources = 75 mg/kg/day not to exceed 4 grams/day. $Given 03/26/2023 1:49 PM AGENCY SALES DIRECTOR 650 mg acetaminophen (TYLENOL) tablet 650 mg 650 mg, Oral, EVERY 6 HOURS PRN, fever, mild pain, Starting on 03/26/23 at 1612, Maximum acetaminophen dose from all sources = 75 mg/kg/day not to exceed 4 grams/day. artificial saliva (BIOTENE MT) solution 1 spray 1 spray, Swish & Spit, 4 TIMES DAILY PRN, dry mouth, Starting on Mon03/24/23 at 0419 $Given 03/25/2023 1:45 AM AGENCY SALES DIRECTOR 1 spray $Given 03/24/2023 7:04 PM AGENCY SALES DIRECTOR 1 spray $Given 03/24/2023 11:49 AM AGENCY SALES DIRECTOR 1 spray buPROPion (WELLBUTRIN) tablet 100 mg 100 mg, Oral, 2 TIMES DAILY, First dose on Mon03/22/23 at 2000 $Given 03/27/2023 8:26 AM AGENCY SALES DIRECTOR 100 mg $Given 03/26/2023 7:41 PM AGENCY SALES DIRECTOR 100 mg $Given 03/26/2023 8:09 AM AGENCY SALES DIRECTOR 100 mg enoxaparin ANTICOAGULANT (LOVENOX) injection 40 mg 40 mg, Subcutaneous, EVERY 24 HOURS, First dose on 03/25/23 at 1200 $Given 03/26/2023 12:05 PM AGENCY SALES DIRECTOR 40 mg $Given 03/25/2023 11:58 AM AGENCY SALES DIRECTOR 40 mg fentaNYL (PF) (SUBLIMAZE) injection 50 mcg 50 mcg, Intravenous, EVERY 5 MIN PRN, severe pain, Give fentaNYL (SUBLIMAZE) first if HYDROmorphone (DILAUDID) also ordered., Starting on Heidi 03/23/23 at 2113, Administer fentaNYL (SUBLIMAZE) for acute pain control. Move to HYDROmorphone (DILAUDID): - IF patient has received up to 200 mcg of fentaNYL (SUBLIMAZE), OR - IF patient has received 2 doses of fentaNYL (SUBLIMAZE) AND continues to have severe pain (pain score greater than or equal to seven (7) or is unable to participate in post op recovery due to pain. Wait 5 minutes AFTER last fentaNYL (SUBLIMAZE) dose before administering HYDROmorphone (DILADUDID). Postop Anesthesia Phase I only. Notify Provider to assess for uncontrolled pain or analgesic side effects. DO NOT revert back to fentanyl (SUBLIMAZE) after administering HYDROmorphone (DILAUDID)., PACU $Given 03/23/2023 9:44 PM AGENCY SALES DIRECTOR 50 mcg gabapentin (NEURONTIN) capsule 900 mg 900 mg, Oral, 3 TIMES DAILY, First dose on Mon03/22/23 at 2000 $Given 03/27/2023 8:26 AM AGENCY SALES DIRECTOR 900 mg $Given 03/26/2023 7:41 PM AGENCY SALES DIRECTOR 900 mg $Given 03/26/2023 1:49 PM AGENCY SALES DIRECTOR 900 mg HYDROmorphone (DILAUDID) injection 0.2 mg 0.2 mg, Intravenous, EVERY 3 HOURS PRN, moderate pain, Starting on Mon03/22/23 at 1612 $Given 03/23/2023 2:59 AM AGENCY SALES DIRECTOR 0.2 mg $Given 03/22/2023 11:17 PM AGENCY SALES DIRECTOR 0.2 mg $Given 03/22/2023 7:30 PM AGENCY SALES DIRECTOR 0.2 mg HYDROmorphone (DILAUDID) injection 0.2 mg 0.2 mg, Intravenous, EVERY 2 HOURS PRN, moderate pain, Starting on Heidi 03/23/23 at 0530 $Given 03/25/2023 11:58 AM AGENCY SALES DIRECTOR 0.2 mg $Given 03/25/2023 1:42 AM AGENCY SALES DIRECTOR 0.2 mg $Given 03/24/2023 1:28 PM AGENCY SALES DIRECTOR 0.2 mg HYDROmorphone (DILAUDID) injection 0.4 mg 0.4 mg, Intravenous, EVERY 4 HOURS PRN, severe pain, Starting on Mon03/22/23 at 1612 $Given 03/23/2023 5:59 AM AGENCY SALES DIRECTOR 0.4 mg HYDROmorphone (DILAUDID) injection 0.4 mg 0.4 mg, Intravenous, EVERY 2 HOURS PRN, severe pain, Starting on Mon03/24/23 at 1400 $Given 03/24/2023 7:05 PM AGENCY SALES DIRECTOR 0.4 mg HYDROmorphone (PF) (DILAUDID) injection 0.6 mg 0.6 mg, Intravenous, EVERY 2 HOURS PRN, severe pain, Starting on Heidi 03/23/23 at 0930 $Given 03/24/2023 12:58 AM AGENCY SALES DIRECTOR 0.6 mg $Given 03/23/2023 10:49 PM AGENCY SALES DIRECTOR 0.6 mg $Given 03/23/2023 2:16 PM AGENCY SALES DIRECTOR 0.6 mg lactated ringers infusion at 75 mL/hr, Intravenous, CONTINUOUS, Starting on Heidi 03/23/23 at 0900, Until 03/26/23 at 1933 $New Bag 03/26/2023 7:34 AM AGENCY SALES DIRECTOR 75 mL/hr $New Bag 03/25/2023 6:45 PM AGENCY SALES DIRECTOR 75 mL/hr $New Bag 03/25/2023 4:44 AM AGENCY SALES DIRECTOR 75 mL/hr levothyroxine (SYNTHROID/LEVOTHROID) tablet 137 mcg 137 mcg, Oral, EVERY MORNING BEFORE BREAKFAST, First dose on Mon03/27/23 at 0730, Separate oral administration of iron- or calcium-containing products and levothyroxine by at least 4 hours. $Given 03/27/2023 6:53 AM AGENCY SALES DIRECTOR 137 mcg naloxone (NARCAN) injection 0.2 mg [...] Mon03/26/23 at 1137 $Given 03/27/2023 6:53 AM AGENCY SALES DIRECTOR 2.5 m g $Given 03/27/2023 1:58 AM AGENCY SALES DIRECTOR 2.5 mg pantoprazole (PROTONIX) IV push injection 40 mg 40 mg, Intravenous, DAILY WITH BREAKFAST, First dose on Mon03/22/23 at 1930, Irritant. $Given 03/27/2023 8:2 5 AM AGENCY SALES DIRECTOR 40 mg $Given 03/26/2023 8:09 AM AGENCY SALES DIRECTOR 40 mg $Given 03/25/2023 9:17 AM AGENCY SALES DIRECTOR 40 mg polyethylene glycol (MIRALAX) Packet 17 [...] bowel clean out. $Given 03/27/2023 8:26 AM AGENCY SALES DIRECTOR 17 g $Given 03/26/2023 7:42 PM AGENCY SALES DIRECTOR 17 g $Given 03/26/2023 8:09 AM AGENCY SALES DIRECTOR 17 g prochlorperazine (COMPAZINE) injection 5 mg [...] 1830, to lock peripheral IV dormant line $Given 03/25/2023 1:43 AM AGENCY SALES DIRECTOR 3 mLs $Given 03/23/2023 9:37 AM AGENCY SALES DIRECTOR 3 mLs $Given 03/23/2023 3:00 AM AGENCY SALES DIRECTOR 3 mLs sodium chloride (PF) 0.9% PF flush 3 mL 3 mL, Intracatheter, EVERY 8 HOURS, First dose on Heidi 03/23/23 at 2230, to lock peripheral IV dormant line $Given 03/26/2023 1:51 PM AGENCY SALES DIRECTOR 3 mLs sodium chloride (PF) 0.9% PF flush 3 mL 3 mL, Intracatheter, EVERY 1 MIN PRN, line flush, other, to ensure patency or to lock dormant line, Starting on Mon03/23/23 at 2223 $Given 03/27/2023 8:26 AM AGENCY SALES DIRECTOR 3 mLs sodium chloride 0.9% BOLUS 1,000 mL Intravenous, 1,000 mL, ONCE, at 100 mL/hr, Administer over 10 Hours, On Mon03/22/23 at 1630, For 1 dose $New Bag 03/22/2023 5:20 PM AGENCY SALES DIRECTOR 1,000 mLs 100 mL/hr venlafaxine (EFFEXOR) tablet 75 mg 75 mg, Oral, 3 TIMES DAILY, First dose on Mon03/22/23 at 2000 $Given 03/27/2023 8:26 AM AGENCY SALES DIRECTOR 75 mg $Given 03/26/2023 7:41 PM AGENCY SALES DIRECTOR 75 mg $Given 03/26/2023 1:49 PM AGENCY SALES DIRECTOR 75 mg documented in this encounter Active and Recently Administered Medications Times are shown in AGENCY SALES DIRECTOR. Scheduled Medication Order 03/25/2023 03/26/2023 03/27/2023 buPROPion (WELLBUTRIN) tablet 100 mg 100 mg, Oral, 2 TIMES DAILY, First dose on Mon03/22/23 at 1999 0917 ($Given - Provider: Serenity Morataya RN)1910 ($Given - Provider: Kushal Hickman RN) 0809 ($Given - Provider: Og Baum RN)194 ($Given - Provider: Danielle Jimenez RN) 0826 ($Given - Provider: Clemencia Ballesteros, TONY) enoxaparin ANTICOAGULANT (LOVENOX) injection 40 mg 40 [...] Baum RN)1349 ($Given - Provider: Og Baum RN)194 ($Given - Provider: Danielle Jimenez RN) 0826 ($Given - Provider: Clemencia Ballesteros, TONY)1400 (Canceled Entry - Provider: Orders Generic Provider [...] RN) 0825 ($Given - Provider: Clemencia Ballesteros, RN) polyethylene glycol (MIRALAX) Packet 17 g 17 [...] out. 0918 ($Given - Provider: Serenity Morataya RN)1910 ($Given - Provider: Kushal Hickman RN) 0809 ($Given - Provider: Og Baum, TONY)194 ($Given - Provider: Danielle Jimenez, TONY) 0826 ($Given - Provider: Clemencia Ballesteros, TONY) [...] Infusing) 0239 (Not Given - Provider: Danielle Jimneez RN - Reason: IV Infusing)1030 (Not Given [...] Reason: Patient sleeping)1430 (Canceled Entry - Provider: Stu Generic Provider - Comment: Automatically canceled at [...] 1933 0444 ($New Bag - Provider: Danielle Jimeenz RN)1845 ($New Bag - Provider: Stacey Trimble [...] mild pain with VAD insertion, Starting on Mon23 at 2223, MAX dose 1 mL subcutaneous [...] 2 MIN PRN, opioid reversal, Starting on [facility] 03/22/23 at 1629, Administer intravenous route when available [...] 2 MIN PRN, opioid reversal, Starting on [facility] 03/22/23 at 1629, Administer intramuscular if an intravenous [...] stools. documented in this encounter Care Teams Insulation Engineman Relationship Specialty Start Date End Date Juan Rojas MD [id number] [place] [address] PCP - General Family Medicine 03/23/23 documented as of this encounter
--- OUTSIDE RECORDS SUMMARY | 2023-05-24 16:33 | XMS_ITS | Encounter Summary ---
Author Name Unknown Organization [place] Address [address] [facility] [place] [address] Care Team Providers Care Coil Inspector Name Role Phone Juan Rojas MD Primary Care Provider [phone] Reason for Visit * Auth/Cert (Routine) Specialty Diagnoses / Procedures Referred By Sundar daivson Referred To Contact Orthopedics Diagnoses SBO (small bowel obstruction) (H) Bowel obstruction SBO (small bowel obstruction) (H) Ortho Spine [address] [place] [address] Referral ID Status Reason Start Date Expiration Date Visits Re quested Visits Authorized [id number] 1 1 Encounter Details Date Type Department Care Team (Late st Contact Info) Description 03/23/2023 6:26 PM TUMBLING AND ROLLING SUPERVISOR Anesthesia Event [facility]Op [facility] [address] [place] [address] Richy Scott MD [facility] ANESTHESIA [address] [place] [address] Mckay Sheppard DO [facility] [address] [place] [address] Anesthesia Record Procedure Summary Procedure Name Responsible Anesthesiologist Anesthesia Start Time Anesthesia Stop Time LAPAROSCOPY, DIAGNOSTIC, BY GENERAL SURGERY, convert to open, lysis of adhesions, partial mesh explantation, repair of small bowel enterotomy (Abdomen) Richy Scott MD 03/23/23182503/23/232113 Events Date Time Event Comment 03/23/20231821 182 An Start 1828 An Start Data 1828 AN REASSESS I attest that I have identified and re-evaluated the patient immediately before the induction of anesthesia and I am satisfied that the anesthetic plan is suitable for the patient's condition and procedure. The first vital signs recorded are pre- induction. Nura Garces APRN CHANDELIER MAKER 183 An Induction 183 An Intubation 184 Anesthesia Ready for Procedu re 184 MD Present Present from st art of case 193 MD Present 1957 MD Present 2045 MD Present 2105 AN Extubation All extubation criteria met prior to removal. 2105 an stop data 2106 Present 2113 An Stop Electronically signed by Nura Garces APRN CRNA on March 23, 2023 9:13 PM Meds Name Total fentaNYL 50 mcg/mL 150 mcg lidocaine 2% 20 mg propofol 10 mg/mL 120 mg rocuronium 10 mg/mL 50 mg succinylcholine 20 mg/mL 40 mg phenylephrine (RENATE-SYNEPHRINE) injection 400 mcg dexamethasone (DECADRON) 4 mg/mL 4 mg ondansetron 2 mg/mL 4 mg glycopyrrolate 0.2 mg/mL 0.1 mg sugammadex (BRIDION) 200mg/2mL 200 mg cefOXitin (MEFOXIN) 1 g vial to attach to NS 100 mL bag for ADULTS or 25 mL bag for PEDS 1 g lactated ringers infusion 1,700 mL * Agents Name NO HELIOX O2 N2O Air Exp Sevoflurane Exp Isoflurane Exp Desflurane Exp N2O Ins Sevoflurane Ins Isoflurane Ins Desflurane O2 Auxiliary * Blood No blood administrations on file. Lines, Drains, and Airways Type Details Placement Removal Colostomy (placed 2005); RLQ; Permanent 03/22/23 1706 by Daksha Mejia RN Incision/Surgical Site 03/23/23; 2119; M idline; Abdomen (one midline incision, one laparoscopic site LUQ) 03/23/232119 by Eloy Moncada RN Negative Pressure Wound Therapy 03/23/23; 2120; Abdomen; Midline 03/23/232120 by Eloy Moncada RN Peripheral IV 03/22/23; 1400; 24 G ; Right, Dorsal; Hand 03/22/23 1400 by Daksha Mejia RN 03/24/23 1155 by Eloy Campo RN Gastric Tube 03/23/23; 1200; Decompression; 18 fr; Aspiration of gastric content 03/23/23 1200 by Nevin Rizvi RN 03/24/23 1440 by Eloy Campo RN ETT Placement Date: 03/23/23; Placement Time: 1835 (created via procedure documentation); Mask Ventilation: 0; Induction Type: Intravenous; Ease of Intubation: Easy; Technique: Direct laryngoscopy; Tube Size: 7 mm; DL Blade Size: Prakash 2; Grade View: 1; Adjucts: Stylet; Placement Person: CHANDELIER MAKER; Attempts: 1 03/23/231835 by Nura Garces APRN CHANDELIER MAKER 03/23/232105 by Nura Garces APRN CHANDELIER MAKER Urethral Catheter 03/23/23; 2104; No; Other (Comment) (bladder scan volume > 300mL); 14 fr 03/23/232104 by Eloy Moncada RN 03/23/232107 by Eloy Moncada RN Peripheral IV 03/23/23; 2109 (pres ent upon arrival); 20 G; B Oates; Anterior, Left; Wrist 03/23/232109 by Jr Westbrook RN 03/24/232217 by Danielle Jimenez RN documented in this encounter Social History Tobacco [...] on file documented as of this encounter OR Notes * Anesthesia Postprocedure Evaluation - Richy Scott MD - 03/23/2023 9:43 PM CST Patient: Gail Malcolm Vagt Procedure: Procedure(s): LAPAROSCOPY, DIAGNOSTIC, BY GENERAL SURGERY, convert to open, lysis of adhesions, partial mesh explantation, repair of small bowel enterotomy Anesthesia Type: General Note: Disposition: Inpatient Postop Pain Control: Uneventful Sign Out: Well controlled pain PONV: No Neuro/Psych: Uneventful Sign Out: Acceptable/Baseline neuro status Airway/Respiratory: Uneventful Sign Out: Acceptable/Baseline resp. status CV/Hemodynamics: Uneventful Sign Out: Acceptable CV status; No obvious hypovolemia; No obvious fluid overload Other NRE: NONE DID A NON-ROUTINE EVENT OCCUR? No Last vitals: Vitals Value Taken Time BP 143/65 03/23/232139 Temp 98.7 ??F (37.1 ??C) 03/23/232114 Pulse 87 03/23/232141 Resp 34 03/23/232141 SpO2 86 % 03/23/232141 Vitals shown include unfiled device data. Electronically Signed By: Richy Scott MD March 23, 2023 9:43 PM LING AND ROLLING SUPERVISOR * Anesthesia Procedure Notes - Nura Garces APRN CRNA - 03/23/2023 6:47 PM CSTAssociated Order(s): Airway Airway Patient location during procedure: OR Procedure Start/Stop Times: 03/23/2023 6:36 PM Staff - CHANDELIER MAKER: Nura Garces APRN CRNA Performed By: CHANDELIER MAKER Consent for Airway Urgency: elective Indications and Patient Condition Indications for airway management: jaswant-procedural Induction type:intravenous Mask difficulty assessment: 0 - not attempted Final Airway Details Final airway type: endotracheal airway Successful airway: ETT - single and Oral Endotracheal Airway Details ETT size (mm): 7.0 Cuffed: yes Successful intubation technique: direct laryngoscopy DL Blade Type: Prakash 2 Grade View of Cords: 1 Adjucts: stylet Position: Right Measured from: lips Secured at (cm): 22 Bite block used: None Post intubation assessment Placement verified by: capnometry, equal breath sounds and chest rise Number of attempts at approach: 1 Secured with: tape Ease of procedure: easy Dentition: Intact and Unchanged Medication(s) Administered Medication Administration Time: 03/23/2023 6:36 PM LING AND ROLLING SUPERVISOR * Anesthesia Preprocedure Evaluation - Richy Scott MD - 03/23/2023 5:07 PM CST Anesthesia Pre-Procedure Evaluation Patient: Gail Huynh : 1945 Procedure : Procedure(s): LAPAROSCOPY, DIAGNOSTIC, BY GENERAL SURGERY, possible bowel resection, possible open, possible ostomy revision Past Medical History: Diagnosis Date Aortic stenosis [...] not on treatment Pre-diabetes Past Surgical History: Procedure Laterality Date CARPAL TUNNEL RELEASE RT/LT COLECTOMY TOTAL ? ischemic bowel LAP VENTRAL HERNIA REPAIR REPLACEMENT TOTAL KNEE Bilateral ADILSON EN Y BOWEL Allergies Allergen Reactions Droperidol Hallucination Reglan [Metoclopramide] Hallucination Sulfa Antibiotics Rash Patient experienced a rash while using Sulfa-cream product 5 or 6 years ago Social History Tobacco Use Smoking status: Never Smokeless tobacco: Not on file Substance Use Topics Alcohol use: Yes Comment: rare Wt Readings from Last 1 Encounters: 03/22/23 98.3 kg (216 lb 11.4 oz) Anesthesia Evaluation ROS/MED HX ENT/Pulmonary: (+) sleep apnea, doesn't use CPAP, mild, COPD, Neurologic: - neg neurologic ROS Cardiovascular: Comment: Fibromuscular dysplagia of renal arteries (+) hypertension- - - - - valvular problems/murmurs type: MV stenosis. pulmonary hypertension, METS/Exercise Tolerance: >4 METS Hematologic: - neg hematologic ROS Musculoskeletal: Comment: Polymyalgia Rheumatica, not treated - neg musculoskeletal ROS GI/Hepatic: Comment: Small bowel obstruction R en Y gastric bypass (+) GERD, Renal/Genitourinary: - neg Renal ROS Endo: Comment: Pre-DM (+) thyroid problem, Psychiatric/Substance Use: (+) psychiatric history depression Infectious Disease: - neg infectious disease ROS Malignancy: - neg malignancy ROS Other: - neg other ROS Physical Exam Airway Mallampati: II Neck ROM: full Respiratory Devices and Support Dental (+) Edentulous Cardiovascular cardiovascular exam normal Rhythm and rate: regular Pulmonary pulmonary exam normal OUTSIDE LABS: CBC: Lab Results Component Value Date WBC 9.4 03/23/2023 WBC 8.1 03/22/2023 HGB 11.8 03/23/2023 HGB 11.2 (L) 03/22/2023 HCT 36.6 03/23/2023 HCT 34.5 (L) 03/22/2023 PLT 256 03/23/2023 PLT 231 03/22/2023 BMP: Lab Results Component Value Date NA 137 03/23/2023 NA 134 (L) 03/22/2023 POTASSIUM 4.3 03/23/2023 POTASSIUM 4.3 03/23/2023 CHLORIDE 103 03/23/2023 CHLORIDE 101 03/22/2023 CO2 24 03/23/2023 CO2 28 03/22/2023 BUN 20.3 03/23/2023 BUN 21.3 03/22/2023 CR 0.91 03/23/2023 CR 0.93 03/22/2023 GLC 102 (H) 03/23/2023 GLC 106 (H) 03/22/2023 COAGS: No results found for: PTT, INR, FIBR POC: No results found for: BGM, HCG, HCGS HEPATIC: Lab Results Component Value Date ALBUMIN 3.7 03/23/2023 PROTTOTAL 6.7 03/23/2023 ALT 95 (H) 03/23/2023 AST 114 (H) 03/23/2023 ALKPHOS 140 03/23/2023 BILITOTAL 0.7 03/23/2023 OTHER: Lab Results Component Value Date LACT 0.9 03/22/2023 TIO 8.4 (L) 03/23/2023 MAG 1.8 03/23/2023 Anesthesia Plan ASA Status: 3, emergent Anesthesia Type: General. - Airway: ETT Induction: Intravenous, Propofol. Maintenance: Balanced. Consents Anesthesia Plan(s) and associated risks, benefits, and realistic alternatives discussed. Questions answered and patient/brewery representative(s) expressed understanding. - Discussed: - Discussed with: Patient Postoperative Care Pain management: IV analgesics, Oral pain medications, Multi-modal analgesia. PONV prophylaxis: Ondansetron (or other 5HT-3), Dexamethasone or Solumedrol Comments: Mckay Sheppard DO LING AND ROLLING SUPERVISOR documented in this encounter Miscellaneous Notes * Anesthesia Care Transfer Note - Nura Garces APRN CRNA - 03/23/2023 9:13 PM CST Patient: Gail Malcolm Vagt Procedure: Procedure(s): LAPAROSCOPY, DIAGNOSTIC, BY GENERAL SURGERY, convert to open, lysis of adhesions, partial mesh explantation, repair of small bowel enterotomy Diagnosis: SBO (small bowel obstruction) (H) [K56.609] Diagnosis Additional Information: No value filed. Anesthesia Type: General Note: Oropharynx: oropharynx clear of all foreign objects Level of Consciousness: awake Oxygen Supplementation: face mask Level of Supplemental Oxygen (L/min / FiO2): 6 Independent Airway: airway patency satisfactory and stable Dentition: dentition unchanged Vital Signs Stable: post-procedure vital signs reviewed and stable Report to RN Given: handoff report given Patient transferred to: PACU Handoff Report: Identifed the Patient, Identified the Reponsible Provider, Reviewed the pertinent medical history, Discussed the surgical course, Reviewed Intra-OP anesthesia mangement and issues during anesthesia, Set expectations for post-procedure period and Allowed opportunity for questions andacknowledgement of understanding Vitals: Vitals Value Taken Time BP 122/65 03/23/232110 Temp Pulse 90 03/23/232112 Resp 18 03/23/232112 SpO2 100 % 03/23/232112 Vitals shown include unfiled device data. Electronically Signed By: Nura Garces APRN CRNA March 23, 2023 9:13 PM LING AND ROLLING SUPERVISOR documented in this encounter Plan of Treatment Not on file documented as of this encounter Procedures Procedure Name Priority Date/Time Associated Diagnosis Comments ANE AIRWAY ETT PERFORMABLE Routine 03/23/2023 6:36 PM TUMBLING AND ROLLING SUPERVISOR documented in this encounter Results * ANE AIRWAY ETT PERFORMABLE (03/23/2023 6:36 PM TUMBLING AND ROLLING SUPERVISOR) Narrative Nura Garces APRN CRNA - 03/23/2023 6:36 PM TUMBLING AND ROLLING SUPERVISOR Nura Garces APRN CRNA ? 03/23/2023 ??6:48 PM Airway ? Patient location during procedure: OR ? Procedure Start/Stop Times: 03/23/2023 6:36 PM Staff - ? CHANDELIER MAKER: Nura Garces APRN CRNA ? Performed By: CHANDELIER MAKER Consent for Airway ? Urgency: elective Indications [...] Time: 03/23/2023 6:36 PM Richy Scott MD [place] [facility] documented in this encounter Visit Diagnoses Not on filedocumented in this encounter Administered Medications Inactive Administered Medications - up to 3 most recent administrations Medication Order MAR Action Action Date Dose Rate Site cefOXitin (MEFOXIN) 1 g vial to attach to NS 100 mL bag for ADULTS or 25 mL bag for PEDS 1 g, Intravenous, SURVEYOR HELPER TO O.R., Starting on Heidi 03/23/23 at 1506, For 1 dose, Indications: Intra-Abdominal Infection $Given 03/23/2023 6:32 PM TUMBLING AND ROLLING SUPERVISOR 1 g dexAMETHasone (DECADRON) injection Intravenous, PRN, Administer over 1 Minutes, Starting on Heidi 03/23/23 at 1832, Anesthesia Intra-op $Given 03/23/2023 6:32 PM TUMBLING AND ROLLING SUPERVISOR 4 mg fentaNYL (PF) (SUBLIMAZE) injection Intravenous, PRN, Administer over 3-5 Minutes, Starting on Heidi 03/23/23 at 1832, Anesthesia Intra-op $Given 03/23/2023 7:46 PM TUMBLING AND ROLLING SUPERVISOR 50 mcg $Given 03/23/2023 6:32 PM TUMBLING AND ROLLING SUPERVISOR 100 mcg glycopyrrolate (ROBINUL) injection Intravenous, PRN, Administer over 1-2 Minutes, Starting on Heidi 03/23/23 at 1832, Anesthesia Intra-op $Given 03/23/2023 6:32 PM TUMBLING AND ROLLING SUPERVISOR 0.1 mg lactated ringers infusion at 75 mL/hr, Intravenous, CONTINUOUS, Starting on Heidi 03/23/23 at 0900, Until 03/26/23 at 1933 $New Bag 03/26/2023 7:34 AM TUMBLING AND ROLLING SUPERVISOR 75 mL/hr $New Bag 03/25/2023 6:45 PM TUMBLING AND ROLLING SUPERVISOR 75 mL/hr $New Bag 03/25/2023 4:44 AM TUMBLING AND ROLLING SUPERVISOR 75 mL/hr lidocaine 2% injection (MDV) Intravenous, PRN, Starting on Heidi 03/23/23 at 1832, Anesthesia Intra-op $Given 03/23/2023 6:32 PM TUMBLING AND ROLLING SUPERVISOR 20 mg ondansetron (ZOFRAN) injection Intravenous, PRN, Administer over 2-5 Minutes, Starting on Heidi 03/23/23 at 2006, Anesthesia Intra-op $Given 03/23/2023 8:06 PM TUMBLING AND ROLLING SUPERVISOR 4 mg phenylephrine (RENATE-SYNEPHRINE) injection Intravenous, CONTINUOUS PRN, Starting on Heidi 03/23/23 at 1845, Anesthesia Intra-op $Bolus 03/23/2023 6:55 PM TUMBLING AND ROLLING SUPERVISOR 100 mcg $Bolus 03/23/2023 6:51 PM TUMBLING AND ROLLING SUPERVISOR 150 mcg $New Bag 03/23/2023 6:45 PM TUMBLING AND ROLLING SUPERVISOR 150 mcg propofol (DIPRIVAN) injection 10 mg/mL vial Intravenous, PRN, Starting on Heidi 03/23/23 at 1832, Anesthesia Intra-op $Given 03/23/2023 6:32 PM TUMBLING AND ROLLING SUPERVISOR 120 mg rocuronium injection Intravenous, PRN, Starting on Heidi 03/23/23 at 1855, Anesthesia Intra-op $Given 03/23/2023 7:09 PM TUMBLING AND ROLLING SUPERVISOR 20 mg $Given 03/23/2023 6:55 PM TUMBLING AND ROLLING SUPERVISOR 30 mg succinylcholine (ANECTINE) injection Intravenous, PRN, Starting on Heidi 03/23/23 at 1832, Anesthesia Intra-op $Given 03/23/2023 6:32 PM TUMBLING AND ROLLING SUPERVISOR 40 mg sugammadex (BRIDION) injection Intravenous, PRN, Starting on Heidi 03/23/23 at 2054, Anesthesia Intra-op $Given 03/23/2023 8:54 PM TUMBLING AND ROLLING SUPERVISOR 200 mg documented in this encounter Care Teams Coil Inspector Relationship Specialty Start Date End Date Juan Rojas MD [address] [place] [address] PCP - General Family Medicine 03/23/23 documented as of this encounter
--- OUTSIDE RECORDS SUMMARY | 2023-05-24 16:34 | XMS_ITS | Encounter Summary ---
Author Name Unknown Organization [facility] Address [address] [place] [address] Care Team Providers Care Business Systems Analyst Name Role Phone Unavailable Primary Care Provider Unavailabl e Encounter Details Date Type Department Care Team (Late st Contact Info) Description 07/18/2022 Clinical Communication Division of Colon and Rectal Surgery in [place], [place] [address] [place] [address] Prescheduling, Provider Social History Tobacco Use Types Packs/Day Years Used Date Smoking Tobacco: Never Nutrition Answer Date Recorded Nutrition: EVOO Fat Source Unknown 06/29 Nutrition: Servings of Fruits/Vegetables per Day Not on file 06/29/2020 Dental Answer Date Recorded Dental: Regular Dentist Unknown 06/30/19 21 Sex and Gender Information Value Date Recorded Sex Assigned at Not on file Gender Identity Not on file Sexual Orientation Not on file documented as of this encounter Plan of Treatment Not on file documented as of this encounter Visit Diagnoses Not on filedocumented in this encounter Additional Health Concerns Assessment Noted Time PHQ-9 Depression Total Score: 6 10/16/19 17 10:35 AM CDT documented as of this encounter
--- OUTSIDE RECORDS SUMMARY | 2023-05-24 16:34 | XMS_ITS | Continuity of Care Document ---
Author Name [facility] Organization [facility] Care Team Providers Care Drapery Maker Name Role Phone [facility] Unavailable Unavailable Medications Combined list of outpatient medications from Department of Defense and Veterans Affairs facilities.Medications provided include 1) outpatient medications from the last 15 months, and 2) patient-reported medications. Medication Details Route Status Patient Instructions Prescription Expires Prescription Number Last Dispense Date Ordering Provider Order Date Source atorvastati n calcium ([employer],) 1000 TABLET in 1 BOTTLE Active [id number] 4 2023 Pharmac y Data Transac tion Service Facilit y BUPROPION HCL (BUPROPION HCL), 100MG, TABLET, ORAL, APOTEX ORION, 100 ea. BOTTLE Active [id number] 2023 Pharmac y Data Transac tion Service Facilit y CETIRIZINE HCL (CETIRIZINE HCL), 5MG, TABLET, ORAL, MYLAN, 100 ea. BOTTLE Active [id number] 4 2023 Pharmac y Data Transac tion Service Facilit y FUROSEMIDE (FUROSEMIDE ), 20MG, TABLET, ORAL, [facility] 1000 ea. BOTTLE Active [id number] 2023 Pharmac y Data Transac tion Service Facilit y GABAPENTIN (gabapentin ), 600 MG, TABLET, ORAL, [facility], 500 ea. BOTTLE Active [id number] 2023 Pharmac y Data Transac tion Service Facilit y HYDROCHLORO THIAZIDE (HYDROCHLOR OTHIAZIDE), 12.5 MG, TABLET, ORAL, [facility], 1000 ea. BOTTLE Active [id number] 2023 Pharmac y Data Transac tion Service Facilit y LEVOTHYROXI NE SODIUM (levothyrox ine sodium), 137 MCG, TABLET, ORAL, [facility], 1000 ea. BOTTLE Active [id number] 01/12/ 2024 Pharmac y Data Transac tion Service Facilit y LOSARTAN POTASSIUM (LOSARTAN POTASSIUM), 100 MG, TABLET, ORAL, [employer], 1000 ea. BOTTLE Active [id number] 2023 Pharmac y Data Transac tion Service Facilit y OMEPRAZOLE (omeprazole ), 40 MG, CAPSULE DR, ORAL, Occasion [facility], 1000 ea. BOTTLE Active [id number] 2023 Pharmac y Data Transac tion Service Facilit y TRAMADOL HCL (tramadol HCl), 50 MG, TABLET, ORAL, [facility], 500 ea. BOTTLE Active [id number] 2023 Pharmac y Data Transac tion Service Facilit y VENLAFAXINE HCL (venlafaxin e HCl), 75 MG, TABLET, ORAL, [facility], 100 ea. BOTTLE Active [id number] 4 2023 Pharmac y Data Transac tion Service Facilit y Social History Combined list of available smoking, tobacco, and other social history from Department of Defense and Veterans Affairs facilities. Social History Type Response Date Comment Sour e This section is an empty social history section. [employer]
--- OUTSIDE RECORDS SUMMARY | 2023-05-24 16:34 | XMS_ITS | Clinical Summary ---
Author Name Unknown Organization [facility] Address [place], [place] [address] Care Team Providers Care Sharepoint Admin Name Role Phone Prahba Nice Primary Care Provider [phone] Allergies Active Allergy Reactions Criticality Noted Date Comments Droperidol Rash 02/22/2021 Polyglactin 370 Rash 04/29/2011 Vicryl sutures--rash, itching Metoclopramide Rash 02/22/2021 Sulfa (Sulfonamide Antibiotics) Rash 02/22/2021 Sulfamethoxazole-Trimethoprim Rash Medium 2011 Medications Medication Sig Dispensed Refills Start Date End Date Status atorvastatin (LIPITOR) 20 mg tablet Take 1 Tablet (20 mg) by mouth at bedtime. 90 Tablet 3 02/22/2021 Active buPROPion (WELLBUTRIN) 100 mg tablet Take 1 Tablet (100 mg) by mouth 3 times daily. Based on updated ISMP guidelines, DO NOT crush or chew. 0 02/22/2021 Active multivitamin (MVI) tablet Take 1 Tablet by mouth once daily. 0 02/22/2021 Active cetirizine (ZYRTEC) 10 mg tablet Take 1 Tablet (10 mg) by mouth once daily. 0 02/22/2021 Active docusate (COLACE) 100 mg capsule Take 1 Capsule (100 mg) by mouth once daily. 0 02/22/2021 Active gabapentin (NEURONTIN) 600 mg tablet Take 0.5 Tablets (300 mg) by mouth 3 times daily. 0 02/22/2021 Active gabapentin (NEURONTIN) 600 mg tablet Take 1 Tablet (600 mg) by mouth at bedtime. 0 02/22/2021 Active levothyroxine (SYNTHROID) 137 mcg tablet Take 1 Tablet (137 mcg) by mouth before breakfast. 90 Tablet 3 02/22/2021 Active losartan (COZAAR) 25 mg tablet Take 100 mg by mouth once daily. 90 Tablet 3 02/22/2021 Active melatonin 3 mg tablet Take 1.5 Tablets (4.5 mg) by mouth at bedtime. 0 02/22/2021 Active omeprazole (PRILOSEC) 40 mg Delayed-Release capsule Take 1 Capsule (40 mg) by mouth once daily before a meal. 0 02/22/2021 Active venlafaxine (EFFEXOR) 75 mg tablet Take 1 Tablet (75 mg) by mouth 3 times daily. 180 Tablet 3 02/22/2021 Active cyanocobalamin (Vitamin B-12) 1,000 mcg tablet Take 2 Tablets (2,000 mcg) by mouth once daily. 90 Tablet 3 02/22/2021 Active cholecalciferol (Vitamin D-3) 2,000 unit capsule Take 1 Capsule (2,000 units) by mouth once daily. 0 02/22/2021 Active furosemide (LASIX) 20 mg tablet TAKE ONE TABLET BY MOUTH EVERY MONDAY AND MONDAY 0 04/12/2023 Active traMADoL (ULTRAM) 50 mg tablet Take 50 mg by mouth. 0 04/12/2023 Active fluticasone (50 mcg per actuation) nasal solution (FLONASE) Inhale 2 Sprays to both nostrils once daily. 0 05/11/2023 Active hydroCHLOROthiazide 12.5 mg tablet Take 12.5 mg by mouth every morning. 0 Active Lidocaine-Hydrocort isone Lamont 3-0.5 % topical creamIndications:Pe ripheral sensory neuropathy Apply topically to affected area(s) at bedtime if needed (nerupathy in feet). 28.3 g 2 05/11/2023 Active Active Problems Problem Noted Date Diagnosed Date Neuropathy due to chemotherapeutic drug 05/14/19 24 Paroxysmal A-fib 05/14/2023 Stage 3a chronic kidney disease 05/14/2023 PMR (polymyalgia rheumatica) 02/22/2021 Mild persistent asthma without complication 01/30 Overview: PFT 06/2017 The patient underwent spirometry testing. Spirometry testing does show evidence of a mild restrictive process. FEV1 to FVC shows 0.74. FEV1 74% of predicted, FVC is 76% of predicted. Small airway is 69% of predicted. Post-bronchodilator, small global improvement in lung flow. FVC improves by 10% and FEV1 by 11%. Fibromuscular dysplasia of renal artery 02/23/20 21 Overview: diagnosed day 2010 HTN (hypertension) 02/22/2021 Hypothyroidism (acquired) 02/22/2021 CORAL (obstructive sleep apnea) 02/22/2021 Ileostomy status 02/22/2021 Gastroesophageal reflux disease without esophagi tis 02/22/2021 Overview: EGD 11/15: GE junction @ 40 cm. No endoscopic evidence of reflux or Bermeo's. The pouch measured 4-5 cm in size with a widely patent gastro-enteral anastomosis. No anastomotic ulcers. No strictures no narrowing.biopsies were taken.. Intention tremor 02/22/2021 BIENVENIDO (generalized anxiety disorder) 02/22/2021 COPD (chronic obstructive pulmonary disease) Concentric left ventricular hypertrophy 07/05/19 21 Nonrheumatic mitral valve stenosis 07/04/2020 Aortic stenosis 06/06/2018 Pulmonary HTN 05/18/2018 Overview: Echo 05/2018: RVSP 52, increased intracavitary gradient, mild aortic and mitral stenosis. Dyslipidemia (high LDL; low HDL) 03/01/2018 History of gastric bypass 03/01/2018 Overview: Iam en y. Prediabetes 03/01/2018 Major depressive disorder, recurrent episode, mo derate 02/06/2018 Bursitis of shoulder 01/14/2014 Encounters Date Type Department Care Team Description 05/24/2023 Nurse Triage [facility] [address] [place] [address] Prabha Nice PA Abdominal Pain 05/24/2023 Telephone [facility] [address] [place] [address] Prabha Nice PA Error-please disregard 05/19/2023 1:00 PM TAPE SEWING MACHINE OPERATOR Ancillary Procedure [facility] [address] [facility] [address] Arrived 05/19/2023 Travel 05/11/2023 9:50 AM TAPE SEWING MACHINE OPERATOR Office Visit [facility] [address] [facility] [address] Prabha Nice PA Gi Problem (Having trouble with stomach-taking Lactaid tabs-can't eat very well-also has an ostomy bag that keeps getting plugged) 05/11/2023 Travel 04/28/2023 Telephone [facility] [address] [facility] [address] Prabha Nice PA Appointment Request (NOT FEELING WELL AFTER SURGERY) from Last 3 Months Immunizations Name Administration Dates Next Due COVID-19 Vaccine Spikevax (M oderna 50mcg/0.5mL) 12YO+ [id number] Formula PF 05/11/2023 COVID-19 vaccine ([employer] 30mcg/0.3mL) PF, MDV 02/22/2021 Influenza, High-dose Quadriv alent Inactivated 02/06/2023,02/17/2022,02/15/2021,2019,02/21/2019,03/01/2018,01/19/2017,1 ,03/20/2015,02/17/2015, 015,01/14/2014,01/14/2013 Pneumococcal Poly,23-Valent (Pneumovax) 09/28/2009,05/01/2007 Pneumococcal conj 13-Valent (Prevnar 13) 11/11/2014 Td, Preservative Free (age > = 7 Years) 09/28/2009 Tdap 12/27/2022,03/21/2012 Zoster (Zostavax-ZVL, live) 07/09/2013 Family History Medical History Relation Name Comments Ulcerative colitis Brother Cataracts Father Stroke Father Cancer Maternal Grandmother Cataracts Mother Ulcerative colitis Mother Cancer Paternal Grandfather Relation Name Status Comments Brother Father Maternal Grandmother Mother Paternal Grandfather Social History Tobacco Use Types Packs/Day Years Used Date Smoking Tobacco: Never Smokeless Tobacco: Never Tobacco Cessation:Counseling Given: Not Answered PHQ-2 Answer Date Recorded PHQ-2 TOTAL SCORE 1 05/11/2023 Social Connections Answer Date Recorded Frequency of Communication with Friends and Fami ly Not on file 05/11/2023 Financial Resource Strain Answer Date R ecorded Difficulty of Paying Living Expenses Not on file 05/01/2021 Difficulty of Paying Living Expenses Not on file 05/01/2021 Sex and Gender Information Value Date Recorded Sex Assigned at Not on file Gender Identity Not on file Sexual Orientation Not on file Obstetrics History Last Filed Vital Signs Vital Sign Reading Time Taken Comments Blood Pressure 132/78 05/11/2023 10:00 AM TAPE SEWING MACHINE OPERATOR Pulse 81 05/11/2023 10:00 AM TAPE SEWING MACHINE OPERATOR Temperature - - Respiratory Rate - - Oxygen Saturation 99% 05/11/2023 10:00 AM TAPE SEWING MACHINE OPERATOR Inhaled Oxygen Concentration - - Weight 91.6 kg (202 lb) 05/11/2023 10:00 AM TAPE SEWING MACHINE OPERATOR Height 158.5 cm (5' 2.4) 05/11/2023 10:00 AM CS T Body Mass Index 36.47 05/11/2023 10:00 AM TAPE SEWING MACHINE OPERATOR Plan of Treatment Upcoming Encounters Date Type Department Care Team (Late st Contact Info) Description 06/05/2023 11:00 AM TAPE SEWING MACHINE OPERATOR Office Visit [facility] [address], [place] [id number] Health Maintenance Due Date Last Done Comments Hepatitis C screening for age 18-79 1963 Zoster (shingles) series for age 50+ (2 of 3) 09/03/2013 07/09/2013 Pneumococcal series for age 65+ (3 of 3 - PPSV23 or PCV20) 11/12/2015 11/11/2014, 09/28/2009, 05/01/2007 Medicare Wellness for age 65+ 02/22/2022 02/22/2021 BMI (ht and wt on same day) for age 18+ 05/11/2024 05/11/2023, 02/22/2021 Depression screening for age 12+ 05/11/2024 05/11/2023, 02/23/2021, 02/22/2021 Tetanus booster 12/27/2032 12/27/2022, 03/02, 09/28/2009 DEXA/DXA scan for age 65+ Addressed 2015 (Verified in Care Everywhere or Patient Record) Overridden with the intention of not completing the topic Tdap Completed 12/27/2022, 03/21/2012 Influenza for age 65+ Completed 02/06/2023 , 02/17/2022, 02/15/2021, Additional history exists COVID-19 vaccine series Completed 05/11/19 24, 03/09/2022, 02/22/2021, Additional history exists Procedures Procedure Name Priority Date/Time Associated Diagnosis Comments CT ABDOMEN PELVIS WO Routine 05/19/2023 1:36 PM TAPE SEWING MACHINE OPERATOR Ileostomy status (HC) Abdominal pain, RLQ (right lower quadrant) CBC WITH AUTO DIFFERENTIAL Routine 05/11/2023 10:57 AM TAPE SEWING MACHINE OPERATOR Ileostomy status (HC) Abdominal pain, RLQ (right lower quadrant) C-REACTIVE PROTEIN Routine 05/11/2023 10 :57 AM TAPE SEWING MACHINE OPERATOR Ileostomy status (HC) Abdominal pain, RLQ (right lower quadrant) LIPASE Routine 05/11/2023 10:57 AM TAPE SEWING MACHINE OPERATOR Ileostomy status (HC) Abdominal pain, RLQ (right lower quadrant) COMP METABOLIC PANEL Routine 05/11/2023 10:57 AM TAPE SEWING MACHINE OPERATOR Ileostomy status (HC) Abdominal pain, RLQ (right lower quadrant) CBC WITH AUTO DIFFERENTIAL Routine 05/11/2023 10:57 AM TAPE SEWING MACHINE OPERATOR Ileostomy status (HC) Abdominal pain, RLQ (right lower quadrant) from Last 3 Months Results * CT ABDOMEN PELVIS WO (05/19/2023 1:36 PM TAPE SEWING MACHINE OPERATOR) Anatomical Region Laterality Modality Abdomen, Pelvis, AORTA, LIVER, SPLEEN Computed Tomography 05/19/2023 2:14 PM TAPE SEWING MACHINE OPERATOR Narrative 05/19/2023 2:14 PM TAPE SEWING MACHINE OPERATOR For Patients: ??As a result of the Cures Act, medical imaging exams and procedure reports are released immediately into your electronic medical record. ??You may view this report before your referring provider. ??If you have questions, please contact your health care provider. Indication: Right lower quadrant pain Technique: Noncontrast CT abdomen and pelvis Please note that all CT scans at this facility use dose modulation, iterative reconstruction, and/or weight-based dosing when appropriate to reduce radiation dose to as low as reasonably achievable. Comparison: None Findings: 3 millimeter noncalcified nodule left lower lobe. Calcified nodule right lower lobe measures 6.7 millimeters. Adjacent linear scarring noted. No pleural effusion. Mitral annular calcification. Noncontrast enhanced liver appears normal. Gallbladder absent. Spleen not enlarged. No adrenal nodule. Calcification associated with the anterior right kidney measuring 4 millimeters. No hydronephrosis. Left kidney unremarkable. Bladder normal. No pelvic soft tissue mass. Midline abdominal wall postop changes including right lower quadrant ostomy. No hernia defect or abscess. Postop changes of colectomy. No small bowel obstruction. Incidental subcortical density at the right iliac bone adjacent to the SI joint. Degenerative disc disease and facet degeneration lumbar spine. Leftward curvature of the lumbar spine noted. Impression: No bowel obstruction or inflammatory changes. Right lower quadrant ostomy appears intact. No acute findings. Please note that all CT scans at this facility use dose modulation, iterative reconstruction, and/or weight-based dosing when appropriate to reduce radiation dose to as low as reasonably achievable. Dictated by Hill Roth MD @ May 19 2023 ??2:14PM (Electronically Signed) ?? Procedure Note Hill Roth MD - 05/19/2023 For Patients: As a result of the 21st Century Cures Act, medical imagingexams and procedure reports are released immediately into your electronicmedical record. You may view this report before your referring provider.If you have questions, please contact your health care provider. Indication: Right lower quadrant pain Technique: Noncontrast CT abdomen and pelvis Please note that all CT scans at this facility use dose modulation,iterative reconstruction, and/or weight-based dosing when appropriate toreduce radiation dose to as low as reasonably achievable. Comparison: None Findings: 3 millimeter noncalcified nodule left lower lobe. Calcified nodule rightlower lobe measures 6.7 millimeters. Adjacent linear scarring noted. Nopleural effusion. Mitral annular calcification. Noncontrast enhanced liverappears normal. Gallbladder absent. Spleen not enlarged. No adrenalnodule. Calcification associated with the anterior right kidney measuring4 millimeters. No hydronephrosis. Left kidney unremarkable. Bladdernormal. No pelvic soft tissue mass. Midline abdominal wall postop changesincluding right lower quadrant ostomy. No hernia defect or abscess. Postopchanges of colectomy. No small bowel obstruction. Incidental subcorticaldensity at the right iliac bone adjacent to the SI joint. Degenerativedisc disease and facet degeneration lumbar spine. Leftward curvature ofthe lumbar spine noted. Impression: No bowel obstruction or inflammatory changes. Right lower quadrant ostomyappears intact. No acute findings. Please note that all CT scans at this facility use dose modulation,iterative reconstruction, and/or weight-based dosing when appropriate toreduce radiation dose to as low as reasonably achievable. Dictated by Hill Roth MD @ May 19 2023 2:14PM (Electronically Signed) Prabha GORE CT * (ABNORMAL) CBC WITH AUTO DIFFERENTIAL (05/11/2023 10:57 AM [facility]) [facility] WHITE BLOOD COUNT 7.5 4.5 - 11.0 thou/cu mm 05/11/2023 11:03 AM [facility] RED BLOOD COUNT 3.90(L) 4.00 - 5.20 mil/cu mm 05/11/2023 11:03 AM [facility] HEMOGLOBIN 12.1 12.0 - 16.0 g/dL 05/11/2023 11:03 AM [facility] HEMATOCRIT 37.1 33.0 - 51.0 % 05/11/2023 11:03 AM [facility] MCV 95 80 - 100 fL 05/11/2023 11:03 AM [facility] MCH 31.0 26.0 - 34.0 pg 05/11/2023 11:03 AM [facility] MCHC 32.6 32.0 - 36.0 g/dL 05/11/2023 11:03 AM [facility] RDW 15.2 11.5 - 15.5 % 05/11/2023 11:03 AM [facility] PLATELET COUNT 367 140 - 440 thou/cu mm 05/11/2023 11:03 AM [facility] MPV 9.1 6.5 - 11.0 fL 05/11/2023 11:03 AM [facility] % NEUT 51.3 % 05/11/2023 11:03 AM [facility] % LYMPH 35.9 % 05/11/2023 11:03 AM [facility] % MONO 11.2 % 05/11/2023 11:03 AM [facility] % EOS 0.7 % 05/11/2023 11:03 AM [facility] % BASO 0.9 % 05/11/2023 11:03 AM [facility] ABSOLUTE NEUTROPHILS 3.8 1.7 - 7.0 thou/cu mm 05/11/2023 11:03 AM [facility] ABSOLUTE LYMPHOCYTES 2.7 0.9 - 2.9 thou/cu mm 05/11/2023 11:03 AM [facility] ABSOLUTE MONOCYTES 0.8 <0.9 thou/cu mm 05/11/2023 11:03 AM [facility] ABSOLUTE EOSINOPHILS 0.1 <0.5 thou/cu mm 05/11/2023 11:03 AM [facility] ABSOLUTE BASOPHILS 0.1 <0.3 thou/cu mm 05/11/2023 11:03 AM [facility] Blood BLOOD SPECIMEN / Unknown Venipuncture / Unknown 05/11/2023 10:57 AM TAPE SEWING MACHINE OPERATOR 05/11/2023 10:59 AM [facility] Prabha GORE HEMATOLOGY [facility] [address] [place] [address], * C-REACTIVE PROTEIN (05/11/2023 10:57 AM TAPE SEWING MACHINE OPERATOR) C-REACTIVE PROTEIN <0.3 <0.5 mg/dL 05/11/2023 5:10 PM [facility] Blood BLOOD SPECIMEN / Unknown Venipuncture / Unknown 05/11/2023 10:57 AM TAPE SEWING MACHINE OPERATOR 05/11/2023 10:59 AM TAPE SEWING MACHINE OPERATOR Prabha GORE CHEMISTRY Performing Organization Address City/[facility]/ZIP Co de Phone Number [facility] [address] * (ABNORMAL) LIPASE (05/11/2023 10:57 AM TAPE SEWING MACHINE OPERATOR) LIPASE 65.4(H) 13.0 - 60.0 IU/L 05/11/2023 3:41 PM TAPE SEWING MACHINE OPERATOR [facility] Blood BLOOD SPECIMEN / Unknown Venipuncture / Unknown 05/11/2023 10:57 AM TAPE SEWING MACHINE OPERATOR 05/11/2023 10:59 AM TAPE SEWING MACHINE OPERATOR Prabha GORE CHEMISTRY Performing Organization Address [facility] Co de Phone Number [facility] [address] * (ABNORMAL) COMP METABOLIC PANEL (05/11/2023 10:57 AM TAPE SEWING MACHINE OPERATOR) SODIUM 137 136 - 145 mmol/L 05/11/2023 3:41 PM TAPE SEWING MACHINE OPERATOR [facility] POTASSIUM 5.3(H) 3.5 - 5.1 mmol/L 05/11/2023 3:41 PM TAPE SEWING MACHINE OPERATOR [facility] CHLORIDE 98 98 - 107 mmol/L 05/11/2023 3:41 PM TAPE SEWING MACHINE OPERATOR [facility] CO2,TOTAL 28 22 - 29 mmol/L 05/11/2023 3:41 PM TAPE SEWING MACHINE OPERATOR [facility] ANION GAP 11 5 - 18 05/11/2023 3:41 PM TAPE SEWING MACHINE OPERATOR [facility] GLUCOSE 120(H) 70 - 99 mg/dL 05/11/2023 3:41 PM TAPE SEWING MACHINE OPERATOR [facility] CALCIUM 10.0 8.8 - 10.2 mg/dL 05/11/2023 3:41 PM TAPE SEWING MACHINE OPERATOR [facility] BUN 22 8 - 23 mg/dL 05/11/2023 3:41 PM [facility] CREATININE 1.40(H) 0.50 - 0.90 mg/dL 05/11/2023 3:41 PM [facility] BUN/CREAT RATIO 16 10 - 20 3:41 PM TAPE SEWING MACHINE OPERATOR [facility] eGFR 39(L) >90 mL/min/1.7 3m2 05/11/2023 3:41 PM [facility] Comment:As of 2021, eG FR is calculated by the CKD-EPI creatinine equation without race adjustment. ??eGFR can be influenced by muscle mass, exercise, and diet. ??The reported eGFR is an estimation only and is only applicable if the renal function is stable. ALBUMIN 4.5 4.0 - 4.9 g/dL 05/11/2023 3:41 PM TAPE SEWING MACHINE OPERATOR [facility] PROTEIN,TOTAL 7.4 6.0 - 8.0 g/dL 05/11/2023 3:41 PM TAPE SEWING MACHINE OPERATOR [facility] BILIRUBIN,TOTAL 0.4 0.0 - 1.2 mg/dL 05/11/2023 3:41 PM TAPE SEWING MACHINE OPERATOR [facility] ALK PHOSPHATASE 111(H) 35 - 104 IU/L 05/11/2023 3:41 PM TAPE SEWING MACHINE OPERATOR [facility] ALT (SGPT) 24 10 - 35 IU/L 05/11/2023 3:41 PM TAPE SEWING MACHINE OPERATOR [facility] AST (SGOT) 34 10 - 35 IU/L 05/11/2023 3:41 PM TAPE SEWING MACHINE OPERATOR [facility] Blood BLOOD SPECIMEN / Unknown Venipuncture / Unknown 05/11/2023 10:57 AM TAPE SEWING MACHINE OPERATOR 05/11/2023 10:59 AM TAPE SEWING MACHINE OPERATOR Prabha GORE CHEMISTRY [facility] [address] [place] [address], [place] from Last 3 Months Care Teams Sharepoint Admin Relationship Specialty Start Date End Date Prabha Nice PA [address] [place] [address] PCP - General Physician Business Unit Leader 05/18/23
--- OUTSIDE RECORDS SUMMARY | 2023-05-24 16:34 | XMS_ITS | Clinical Summary ---
Author Name Unknown Organization [facility] Address [address] [place] [id number] Care Team Providers Care Senior Media Director Name Role Phone Unavailable Primary Care Provider Unavailabl e Source Comments Patient records contain information from all sites at [facility]. For routine questions regarding patient records, call [phone] during business hours, M-F 8:00 AM - 5:00 PM Central Time. Record requests for emergency care only can be directed to [phone] at any time.[facility] Allergies Active Allergy Reactions Criticality Noted Date Comments Droperidol Other (see comments) 10/28/2004 Intolerance Metoclopramide Other (see comments) 10/28/2004 Intolerance Metoclopramide Hcl Anxiety 04/29/2011 Suture (Absorbable) Rash 04/29/2011 Vicryl sutures--rash, itching Medications Medication Sig Dispensed Refills Start Date End Date Status acetaminophen (TYLENOL 8 HR) 650 mg ER tablet Take 1-2 tablets by mouth 2 (two) times a day. 1 tab in AM, 2 tabs in PM 0 10/13/2016 Active buPROPion (WELLBUTRIN) 100 mg tablet Take 1 tablet by mouth 3 (three) times a day. (in the morning and at 5 PM) 0 07/05/2015 Active folic acid/multivit-mi n/lutein (CENTRUM SILVER ORAL) Take 2 tablets by mouth daily. 0 05/06/2011 Active cetirizine (ZyrTEC) 10 mg tablet Take 1 tablet by mouth daily. 0 07/05/2015 Active cholecalciferol (VITAMIN D3) 1,000 Unit tablet Take 1 tablet by mouth daily. 0 12/23/2009 Active docusate sodium (COLACE) 100 mg capsule Take 1 capsule by mouth 2 (two) times a day. (bowel regimen) 0 10/13/2016 Active ipratropium-albu terol (COMBIVENT RESPIMAT) 20-100 mcg/actuation inhaler 2 puffs 4 (four) times a day as needed. For asthma symptoms, shortness of breath 0 07/05/2015 Active albuterol (ACCUNEB) 2.5 mg /3 mL nebulizer solution Inhale 3 mL 4 (four) times a day as needed. For asthma symptoms, shortness of breath 0 07/05/2015 Active cyanocobalamin (VITAMIN B12) 500 mcg tablet Take 2 tablets by mouth daily. 0 07/05/2015 Active gabapentin (NEURONTIN) 800 mg tablet Take 1 tablet by mouth 4 (four) times a day. 0 12/22/2009 Active levothyroxine (SYNTHROID, LEVOTHROID) 150 mcg tablet Take 1 tablet by mouth daily. 0 07/05/2015 Active atorvastatin (LIPITOR) 10 mg tablet Take 1 tablet by mouth every evening. 0 09/06/2011 Active nystatin (NYSTOP) 100,000 unit/gram powder Apply topically 2 (two) times a day as needed. Apply to affected skin with appliance changes and to armpits/folds as needed 0 07/05/2015 Active polyethylene glycol (GLYCOLAX) 17 gram/dose oral powder Take 17 g by mouth 2 (two) times a day as needed. To prevent constipation 0 02/26/2016 Active metoprolol succinate (TOPROL XL) 25 mg 24 hr tablet Take 1 tablet by mouth daily. Takes 1/2 tab in evening also 0 07/05/2015 Active RESTASIS 0.05 % ophthalmic emulsion 0 11/13/2017 Active escitalopram (LEXAPRO) 10 mg tablet Take 0.5 tablets by mouth at bedtime. 0 12/14/2017 Active SYNTHROID 137 mcg tablet 1 tablet every morning. 0 11/22/2017 Active losartan (COZAAR) 25 mg tablet Take 1 tablet by mouth 2 (two) times a day. 0 11/22/2017 Active omeprazole (PriLOSEC) 40 mg capsule Take 1 capsule by mouth daily. 0 10/10/2017 Active raNITIdine (ZANTAC) 150 mg tablet Take 1 tablet by mouth 2 (two) times a day. 0 11/22/2017 Active simethicone (MYLICON,GAS-X) 125 mg capsule Take 125 mg by mouth every 6 (six) hours as needed for flatulence. 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 Pulse 87 10/15/2016 6:15 AM CDT Value from [facility]. Temperature - - Respiratory Rate 18 10/15/2016 6:00 AM CDT Value from [facility]. Oxygen Saturation - - Inhaled Oxygen Concentration - - Weight 104 kg (229 lb 8 oz) 01/17/2018 2:30 PM CDT Height 160.7 cm (5' 3.27) 01/17/2018 2 :30 PM CDT Body Mass Index 40.31 01/17/2018 2:30 PM CDT Plan of Treatment Health Maintenance Due Date Last Done Comments Zoster Vaccines (2 of 3) 09/03/2013 07/09/2013 Pneumococcal vaccine (65+ ye ars) (3 of 3 - PPSV23 or PCV20) 11/12/2015 11/11/2014, 09/28/2009, 05/01/2007 Depression Screening (Annual PHQ-2) 05/01/2023 Fall Risk Screen (Annual) 05/01/2023 Thyroid Stimulating Hormone (TSH) test for thyroid function 08/31/2023 08/30/2022, 11/26/2020, 02/07/2020, Additional history exists Creatinine Level (Kidney Fun ction Test) 05/11/2024 05/11/2023, 03/27/2023, 03/26/2023, Additional history exists Potassium Level 05/11/2024 05/11/2023, 03/02, 03/26/2023, Additional history exists Sodium Level 05/11/2024 05/11/2023, 03/02, 03/26/2023, Additional history exists DTaP,Tdap,and Td Vaccines (3 - Td or Tdap) 12/27/2032 12/27/2022, 03/21/2012, 09/28/2009 Hepatitis C Screening Completed 01/01/2006 Mammogram Discontinued 02/28/2011, 04/01 (Performed elsewhere), 02/25/2010, Additional history exists Influenza Vaccine Completed 02/06/2023, , 02/15/2021, Additional history exists COVID-19 Vaccine Completed 05/11/2023, 12/2021, 02/22/2021, Additional history exists Medical Devices Implanted Type Area Program Medical Director Device Identifier Shelf Expiration Date Model / Serial / Lot Patch Strattice Mesh Pilable 8x16 - [place] [id number] Implanted:Qty: 1 on 11/19/2009 Mesh or Patch Other/Legacy - See Implant Description [employer] (Use Allergan) Description:Device Manufactu rer - Seesmic. Body Location - Other. Not Applicable. Device Status Text - [id number]. Mesh Ultrapro 12 X12 In ([id number]) - [place] [id number] Implanted:Qty: 2 on 05/09/2011 Mesh or Patch [employer] Description:Device Manufactu rer - [employer]. Device Status Text - [id number]. Conversions - Default Historical Implant Device Implanted:08/2015 (Quantity not on file) Orthopedic Other Right: First Toe Description:Body Location - Thumb R. Knees. GreatToe R. Device Status Text - OrthoOthr. Advance Directives For more information, please contact: [phone] Documents on File Type Date Recorded Patient Processor Inspector Expl anation Advance Directives 01/18/2017 12:00 AM Leg acy document. See document viewer. Advance Directives 07/13/2015 12:00 AM Leg acy document. See document viewer.
--- OUTSIDE RECORDS SUMMARY | 2023-05-24 16:34 | XMS_ITS ---
Author Name Unknown Organization [facility] Address [address] [place] [address] Care Team Providers Care Excel Expert Name Role Phone Unavailable Unavailable Unavailable Surgery Details Not on file Complications Check Surgery Details section. Procedure Estimated Blood Loss Check Surgery Details section. Procedure Findings Check Surgery Details section. Procedure Specimens Taken Check Surgery Details section.
--- OUTSIDE RECORDS SUMMARY | 2023-05-24 16:34 | XMS_ITS | Referral Summary ---
Author Name Unknown Organization [facility] Address [address] [place] [id number] Care Team Providers Care Veterinary X Ray Operator Name Role Phone Unavailable Primary Care Provider Unavailabl e Source Comments Patient records contain information from all sites at [facility]. For routine questions regarding patient records, call [phone] during business hours, M-F 8:00 AM - 5:00 PM Central Time. Record requests for emergency care only can be directed to [phone] at any time.[facility] Allergies Active Allergy Reactions Criticality Noted Date [...] 01/17/2018 2:30 PM CDT Plan of Treatment Not on file Medical Devices Implanted Type Area Arboriculture Teacher Device Identifier Shelf Expiration Date Model / Serial / Lot Patch Strattice Mesh Pilable 8x16 - [place] [id number] Implanted:Qty: 1 on 11/19/2009 Mesh or Patch Other/Legacy - See Implant Description Exim[employer]-Trianz (Use Allergan) Description:Device Manufactu rer - Nuvotron[employer]. Body Location - Other. Not Applicable. Device Status Text - [id number]. Mesh Ultrapro 12 X12 In ([id number]) - [place] [id number] Implanted:Qty: 2 on 05/09/2011 Mesh or Patch [employer] Description:Device Manufactu rer - [employer]. Device Status Text - [id number]. Conversions - Default Historical Implant Device Implanted:08/2015 (Quantity not on file) Orthopedic Other Right: First Toe Description:Body Location - Thumb R. Knees. GreatToe R. Device Status Text - OrthoOthr. Advance Directives For more information, please contact: [phone] Documents on File Type Date Recorded Patient Product Safety Technical Assistant Expl anation Advance Directives 01/18/2017 12:00 AM Leg acy document. See document viewer. Advance Directives 07/13/2015 12:00 AM Leg acy document. See document viewer.
[2023-05-24 16:55] LABS: Appearance Urine Clear (Clear); Bilirubin Urine Negative (Negative); Blood Urine Negative (Negative); Color Urine Yellow (Yellow); Glucose Urine Negative (Negative); Ketones Urine Negative (Negative); Protein Urine Negative (Negative); Specific Gravity Urine 1.025 (1.000-1.030); Urobilinogen Urine 0.2 (0.2-1.0)
[2023-05-24 16:56] LABS: Basophils Absolute Auto 0.04 K/uL (0.00-0.30); Basophils Percent Auto 0.5 % (0.0-3.0); Eosinophils Absolute Auto 0.02 K/uL (0.00-0.50); Eosinophils Percent Auto 0.3 % (0.0-7.0); Hematocrit 35.3 % (33.0-51.0); Hemoglobin* 11.3 gm/dL (12.0-16.0); Immature Granulocytes Abs Auto 0.01 K/uL (0.00-0.30); Immature Granulocytes Pct Auto 0.1 %; Lymphocytes Percent Auto 18.6 % (20-44); Mean Corpuscular HGB Conc 32 gm/dL (32-36); Mean Corpuscular Hemoglobin 30 pg (26-34); Mean Corpuscular Volume 95 fL (80-100); Monocytes Percent Auto 7.2 % (0.0-11.0); Neutrophils Percent Auto 73.3 % (42.0-72.0); Platelet Count* 293 K/uL (140-440); RDW Coefficient of Variation % 14.8 % (11.5-15.5); Red Blood Count 3.72 m/uL (4.00-5.20); White Blood Count* 7.49 K/uL (4.50-11.00)
[2023-05-24 16:56] LABS: Bacteria Urine Few; Hyaline Casts Urine Few (None-Few); Leukocyte Esterase Urine 1+ (Negative); Nitrite Urine Negative (Negative); RBC Urine 0-2 (0-2); Squamous Epithelial Cell Urine Few (None-Few); WBC Clumps Urine Few
[2023-05-24 16:58] LABS: Slide Review Reflex No
[2023-05-24 17:21] LABS: Albumin* 4.2 g/dL (3.3-5.0); Chloride* 105 mmol/L (96-114); Potassium* 4.4 mmol/L (3.6-5.1); Sodium* 136 mmol/L (135-149)
[2023-05-24 17:23] LABS: Est. Creatinine Clearance* 39.59; Estimated Glomerular Filt Rate 58 ml/min
[2023-05-24 17:24] LABS: Alanine Aminotransferase* 26 U/L (4-35); Alkaline Phosphatase* 99 U/L (40-150); Anion Gap 8 mEq/L (7-15); Aspartate Amino Transferase* 42 U/L (12-35); Bilirubin Direct* 0.1 mg/dL (0.0-0.5); Bilirubin Total* 0.4 mg/dL (0.1-1.5); Blood Urea Nitrogen* 16 mg/dL (7-30); Calcium* 9.3 mg/dL (8.4-10.6); Carbon Dioxide* 23 mmol/L (20-32); Glucose* 108 mg/dL (60-115); Lipase* 180 U/L (23-300); Total Protein* 7.6 g/dL (6.0-8.3)
[2023-05-24] MEDS: ONDANSETRON 2 MG/ML inj 4 MG IVP (17:26)
[2023-05-24] MEDS: MORPHINE 2 MG/ML inj IVP ×2 (17:26→20:27)
[2023-05-24 17:27] LABS: C Reactive Protein* 0.8 mg/dL (0.5-1.0)
--- NOTE | 2023-05-24 20:26 | ED.NURSE ---
Two nurses attempted NG insertion with no advancement past 10 cm elisa. Did not see tube in the back of her throat.
[2023-05-24] MEDS: 0.9 % SODIUM CHLORIDE 1000 ml 1,000 ML 125 ML IV (21:49)
[2023-05-24] MEDS: HYDROmorphone 0.5 mg/0.5 ml inj 0.2 MG IVP ×2 (21:54→23:58)
--- NOTE | 2023-05-24 22:11 | ED.NURSE ---
oxygen applied for low saturations after dilaudid administration.
[2023-05-25] VITALS (53 sets, daily range): BP systolic 97–193; BP diastolic 51–113; PULSE 76–92; RESP 16–18; O2SAT 89–100
[2023-05-25] LABS: Basophils Absolute Auto 0.02 K/uL (0.00-0.30); Basophils Percent Auto 0.3 % (0.0-3.0); Eosinophils Absolute Auto 0.02 K/uL (0.00-0.50); Eosinophils Percent Auto 0.3 % (0.0-7.0); Hematocrit 33.7 % (33.0-51.0); Immature Granulocytes Abs Auto 0.05 K/uL (0.00-0.30); Immature Granulocytes Pct Auto 0.6 %; Lymphocytes Absolute Auto 1.56 K/uL (0.90-2.90); Lymphocytes Percent Auto 20.2 % (20-44); Mean Corpuscular HGB Conc 33 gm/dL (32-36); Mean Corpuscular Hemoglobin 31 pg (26-34); Mean Corpuscular Volume 96 fL (80-100); Monocytes Percent Auto 8.4 % (0.0-11.0); Neutrophils Absolute Auto 5.41 K/uL (1.7-7.0); Neutrophils Percent Auto 70.2 % (42.0-72.0); Platelet Count* 262 K/uL (140-440); RDW Coefficient of Variation % 14.8 % (11.5-15.5); Red Blood Count 3.53 m/uL (4.00-5.20); White Blood Count* 7.71 K/uL (4.50-11.00)
[2023-05-25 00:07] LABS: Slide Review Reflex No
[2023-05-25 00:26] LABS: C Reactive Protein* 1.8 mg/dL (0.5-1.0)
--- NOTE | 2023-05-25 01:09 | ED.NURSE ---
patient accepted at [facility] by Dr. Suarez
--- NOTE | 2023-05-25 01:36 | ED.NURSE ---
patient transport set up with dispatch, dispatch stated that a crew would be out in 15 minutes to transport patient to [place]. Dispatch called back and stated that they will not be traveling due to the dense fog advisory and patient being a routine transfer.
[2023-05-25] MEDS: HYDROmorphone 0.5 mg/0.5 ml inj IVP ×3 (01:45→07:42)
[2023-05-25] MEDS: 0.9 % SODIUM CHLORIDE 1000 ml 1,000 ML 125 ML IV (06:30)
--- NOTE | 2023-05-25 06:36 | ED.NURSE ---
Patient report called to [facility] 0 [phone]) to the charge nurse.
--- NOTE | 2023-05-25 08:21 | ED.NURSE ---
With Pt sitting upright in a chair, sports writer did attempt a 16F to R nostril which would not advance. 14F to L nostril passed easily with Pt head tipped forward and drinking with a straw. Pt dropped water and pulled tube out when tip was at throat area. NG passed easily however Pt did experience spasm. Pt prefers to sit upright in chair, Pt perspires, bedding changed. Pt does not have constant pain, is intermittent. Pt has pleasant demeanor.
== END 2023-05-25 09:34 | disposition other institution (70) ==
PROVIDERS: Emergency Provider Family Medicine; PCP Physician Assistant
DX: K56.609 Unspecified intestinal obstruction, unspecified as to partial versus complete obstruction (principal)
CPT/HCPCS: 36415; 74177; 80048; 80076; 81001; 83605; 83690; 85025; 86140; 87086; 93005; 94761; 96374; 96375; 96376; 99285; J1170; J2270; J2405; J7030; Q9967

== ENCOUNTER 2023-05-25 09:18 | Outpatient (CLI) | payer MEDICARE, OTHER, SELFPAY ==
--- OUTSIDE RECORDS SUMMARY | 2023-05-26 16:12 | XMS_ITS | Clinical Summary ---
Author Name Unknown Organization [facility] Address [facility] [place] [address] Care Team Providers Care Woods Superintendent Name Role Phone Juan Rojas MD Primary Care Provider [phone] Allergies Active Allergy Reactions Criticality Noted Date [...] Type Department Care Team Description 04/10/2023 Telephone [facility] [address] [place] [phone] Daisy Pedraza PA-C 04/04/2023 Telephone [facility] [address] [place] [phone] Cody Villarreal MD Post-Op - General Surgery (Can home health remove miguelito? ) 03/28/2023 Telephone [facility] [email or web address] [place] [phone] Cody Villarreal MD Post-Op - General Surgery (Need wound vac supplies and orders. ) 03/23/2023 6:26 PM MOTORCOACH DRIVER Anesthesia Event [facility] PeriOp Services [address] [place] [phone] Richy Scott MD Osborn, Ronald D, DO 03/23/2023 5:30 PM MOTORCOACH DRIVER - 03/23/2023 7:25 PM MOTORCOACH DRIVER Surgery [facility]Op [facility] [address] [place] [phone] Cody Villarreal MD LAPAROSCOPY, DIAGNOSTIC, BY GENERAL SURGERY, convert to open, lysis of adhesions, partial mesh explantation, repair of small bowel enterotomy 03/22/2023 3:53 PM MOTORCOACH DRIVER - 03/27/2023 1:40 PM MOTORCOACH DRIVER Hospital Encounter [facility] Ortho Spine [address] [place] [address] Fransisco Licea MD Dorn, Karen T, MD SBO (small bowel obstruction) (H) (Primary Dx) Discharge Disposition: Home or Self Care 03/22/2023 Telephone [facility] Services - General Medicine & Pediatrics [facility] [place] [address] Louise Younger PA-C from Last [...] Comments Blood Pressure 155/66 03/27/2023 8:11 AM MOTORCOACH DRIVER Pulse 90 03/27/2023 8:11 AM MOTORCOACH DRIVER Temperature 36.5 ??C (97.7 ??F) 03/27/2023 8:11 AM CS T Respiratory Rate 18 03/27/2023 8:11 AM MOTORCOACH DRIVER Oxygen Saturation 93% 03/27/2023 8:11 AM MOTORCOACH DRIVER Inhaled Oxygen Concentration - - Weight 98.3 kg (216 lb 11.4 oz) 03/22/2023 3:57 PM MOTORCOACH DRIVER Height 160 cm (5' 3) 03/22/2023 5:00 PM MOTORCOACH DRIVER Body Mass Index 38.39 03/22/2023 3:57 PM MOTORCOACH DRIVER Plan of Treatment Health Maintenance Due Date [...] PLATELETS & DIFFERENTIAL Routine 03/27/2023 6:31 AM MOTORCOACH DRIVER RBC AND PLATELET MORPHOLOGY Routine 03/27/2023 6:31 AM MOTORCOACH DRIVER CBC WITH PLATELETS AND DIFFERENTIAL Routine 03/27/2023 6:31 AM MOTORCOACH DRIVER BASIC METABOLIC PANEL Routine 03/27/2023 6:31 AM MOTORCOACH DRIVER MAGNESIUM Routine 03/27/2023 6:31 AM MOTORCOACH DRIVER CBC WITH PLATELETS & DIFFERENTIAL Routine 03/26/2023 6:54 AM MOTORCOACH DRIVER CBC WITH PLATELETS AND DIFFERENTIAL Routine 03/26/2023 6:54 AM MOTORCOACH DRIVER MAGNESIUM Routine 03/26/2023 6:54 AM MOTORCOACH DRIVER BASIC METABOLIC PANEL Routine 03/26/2023 6:54 AM MOTORCOACH DRIVER GLUCOSE BY METER Routine 03/25/2023 4:56 PM MOTORCOACH DRIVER US RENAL COMPLETE NON-VASCULAR Routine 03/25/2023 11:14 AM MOTORCOACH DRIVER CBC WITH PLATELETS & DIFFERENTIAL Routine 03/25/2023 6:54 AM MOTORCOACH DRIVER CBC WITH PLATELETS AND DIFFERENTIAL Routine 03/25/2023 6:54 AM MOTORCOACH DRIVER BASIC METABOLIC PANEL Routine 03/25/2023 6:54 AM MOTORCOACH DRIVER MAGNESIUM Routine 03/25/2023 6:54 AM MOTORCOACH DRIVER EKG 12-LEAD, TRACING ONLY Routine 03/24/2023 3:35 PM MOTORCOACH DRIVER CBC WITH PLATELETS & DIFFERENTIAL Routine 03/24/2023 7:04 AM MOTORCOACH DRIVER CBC WITH PLATELETS AND DIFFERENTIAL Routine 03/24/2023 7:04 AM MOTORCOACH DRIVER PHOSPHORUS Routine 03/24/2023 7:04 AM MOTORCOACH DRIVER HEPATIC FUNCTION PANEL Routine 7:04 AM MOTORCOACH DRIVER BASIC METABOLIC PANEL Routine 03/24/2023 7:04 AM MOTORCOACH DRIVER MAGNESIUM Routine 03/24/2023 7:04 AM MOTORCOACH DRIVER XR ABDOMEN PORT 1 VIEW Routine 12:29 AM MOTORCOACH DRIVER ANE AIRWAY ETT PERFORMABLE Routine 03/23/2023 6:36 PM MOTORCOACH DRIVER LAPAROSCOPY, DIAGNOSTIC, BY GENERAL SURGERY 03/23/2023 6:19 PM MOTORCOACH DRIVER SBO (small bowel obstruction) (H) POTASSIUM Routine 03/23/2023 6:19 AM MOTORCOACH DRIVER MAGNESIUM Routine 03/23/2023 6:19 AM MOTORCOACH DRIVER CBC WITH PLATELETS Routine 03/23/2023 6: 19 AM MOTORCOACH DRIVER COMPREHENSIVE METABOLIC PANEL Routine 03/23/2023 6:19 AM MOTORCOACH DRIVER LACTIC ACID WHOLE BLOOD STAT 03/22/2023 5:05 PM MOTORCOACH DRIVER CBC WITH PLATELETS STAT 03/22/2023 5: 05 PM MOTORCOACH DRIVER BASIC METABOLIC PANEL STAT 03/22/2023 5:05 PM MOTORCOACH DRIVER LAB RESULT - HIM SCAN 03/22/2023 12:[address] IMAGING - HIM SCAN 03/22/2023 12:00 AM MOTORCOACH DRIVER from Last 3 Months Results * (ABNORMAL) RBC and Platelet Morphology (03/27/2023 6:31 AM MOTORCOACH DRIVER) Platelet Assessment Platelets Clumped(A) Automated Count Confirmed. Platelet morphology is normal. 03/27/2023 7:27 AM MOTORCOACH DRIVER [facility] Acanthocytes 03/27/2023 7:27 AM MOTORCOACH DRIVER [facility] Merrill Rods 03/27/2023 7:27 AM MOTORCOACH DRIVER [facility] Basophilic Stippling 03/27/2023 7:27 AM MOTORCOACH DRIVER [facility] Bite Cells 03/27/2023 7:27 AM MOTORCOACH DRIVER [facility] Blister Cells 03/27/2023 7:27 AM MOTORCOACH DRIVER [facility] Como Cells 03/27/2023 7:27 AM MOTORCOACH DRIVER [facility] Elliptocytes 03/27/2023 7:27 AM MOTORCOACH DRIVER [facility] Hgb C Crystals 03/27/2023 7:27 AM MOTORCOACH DRIVER [facility] Bagley-Chaumont Bodies 03/27/2023 7:27 AM MOTORCOACH DRIVER [facility] Hypersegmented Neutrophils 03/27/2023 7:27 AM MOTORCOACH DRIVER [facility] Polychromasia 03/27/2023 7:27 AM MOTORCOACH DRIVER [facility] RBC agglutination 023 7:27 AM MOTORCOACH DRIVER [facility] RBC Fragments 03/27/2023 7:27 AM MOTORCOACH DRIVER [facility] Reactive Lymphocytes 03/27/2023 7:27 AM MOTORCOACH DRIVER [facility] Rouleaux 03/27/2023 7:27 AM MOTORCOACH DRIVER [facility] Sickle Cells 03/27/2023 7:27 AM MOTORCOACH DRIVER [facility] Smudge Cells 03/27/2023 7:27 AM MOTORCOACH DRIVER [facility] Spherocytes 03/27/2023 7:27 AM MOTORCOACH DRIVER [facility] Stomatocytes 03/27/2023 7:27 AM MOTORCOACH DRIVER [facility] Target Cells 03/27/2023 7:27 AM MOTORCOACH DRIVER [facility] Teardrop Cells 03/27/2023 7:27 AM MOTORCOACH DRIVER [facility] Toxic Neutrophils 023 7:27 AM MOTORCOACH DRIVER [facility] RBC Morphology Confirmed RBC Indices 03/27/2023 7:27 AM MOTORCOACH DRIVER [facility] Blood STRUCTURE OF RIGHT UPPER LIMB / Unknown Venipuncture / Unknown 03/27/2023 6:31 AM MOTORCOACH DRIVER 03/27/2023 6:39 AM MOTORCOACH DRIVER Bernice Stearns MD LAB - BLOOD ORDER MILE [facility] Lab [address] Lab (1st floor, no room number) [place] [address] [phone] * (ABNORMAL) CBC with platelets and differential (03/27/2023 6:31 AM MOTORCOACH DRIVER) Only the most recent of4 resultswithin the time period is included. WBC Count 6.9 4.0 - 11.0 10e3/uL 03/27/2023 7:29 AM MOTORCOACH DRIVER [facility] RBC Count 2.95(L) 3.80 - 5.20 10e6/uL 03/27/2023 7:29 AM MOTORCOACH DRIVER [facility] Hemoglobin 9.2(L) 11.7 - 15.7 g/dL 03/27/2023 7:29 AM MOTORCOACH DRIVER [facility] Hematocrit 29.6(L) 35.0 - 47.0 % 03/27/2023 7:29 AM MOTORCOACH DRIVER [facility] MCV 100 78 - 100 fL 03/27/2023 7:29 AM MOTORCOACH DRIVER [facility] MCH 31.2 26.5 - 33.0 pg 03/27/2023 7:29 AM MOTORCOACH DRIVER [facility] MCHC 31.1(L) 31.5 - 36.5 g/dL 03/27/2023 7:29 AM MOTORCOACH DRIVER LABORATORY RDW 13.9 10.0 - 15.0 % 03/27/2023 7:29 AM MOTORCOACH DRIVER [facility] Platelet Count 03/27/2023 7:29 AM MOTORCOACH DRIVER [facility] Comment:Platelets Clumped-Pl atelet Count Not Available % Neutrophils 62 % 03/27/2023 7:29 AM MOTORCOACH DRIVER [facility] % Lymphocytes 21 % 03/27/2023 7:29 AM MOTORCOACH DRIVER [facility] % Monocytes 14 % 03/27/2023 7:29 AM MOTORCOACH DRIVER [facility] % Eosinophils 1 % 03/27/2023 7:29 AM MOTORCOACH DRIVER LABORATORY % Basophils 1 % 03/27/2023 7:29 AM MOTORCOACH DRIVER [facility] % Immature Granulocytes 1 % 03/27/2023 7:29 AM MOTORCOACH DRIVER LABORATORY NRBCs per 100 WBC 0 <1 /100 023 7:29 AM MOTORCOACH DRIVER LABORATORY Absolute Neutrophils 4.4 1.6 - 8.3 10e3/uL 03/27/2023 7:29 AM MOTORCOACH DRIVER LABORATORY Absolute Lymphocytes 1.4 0.8 - 5.3 10e3/uL 03/27/2023 7:29 AM MOTORCOACH DRIVER LABORATORY Absolute Monocytes 0.9 0.0 - 1.3 10e3/uL 03/27/2023 7:29 AM MOTORCOACH DRIVER LABORATORY Absolute Eosinophils 0.0 0.0 - 0.7 10e3/uL 03/27/2023 7:29 AM MOTORCOACH DRIVER LABORATORY Absolute Basophils 0.0 0.0 - 0.2 10e3/uL 03/27/2023 7:29 AM MOTORCOACH DRIVER LABORATORY Absolute Immature Granulocytes 0.1 <=0.4 10e3/uL 03/27/2023 7:29 AM MOTORCOACH DRIVER LABORATORY Absolute NRBCs 0.0 10e3/uL 03/27/2023 7:29 AM MOTORCOACH DRIVER LABORATORY Blood STRUCTURE OF RIGHT UPPER LIMB / Unknown Venipuncture / Unknown 03/27/2023 6:31 AM MOTORCOACH DRIVER 03/27/2023 6:39 AM MOTORCOACH DRIVER Bernice Stearns MD LAB - BLOOD ORDER MILE [facility] Acute Care Lab [address] Lab (1st floor, no room number) [place] [address], [facility] [phone] * (ABNORMAL) Magnesium (03/27/2023 6:31 AM MOTORCOACH DRIVER) Only the most recent of5 resultswithin the time period is included. Magnesium 1.6(L) 1.7 - 2.3 mg/dL 03/27/2023 6:59 AM MOTORCOACH DRIVER LABORATORY Blood STRUCTURE OF RIGHT UPPER LIMB / Unknown Venipuncture / Unknown 03/27/2023 6:31 AM MOTORCOACH DRIVER 03/27/2023 6:39 AM MOTORCOACH DRIVER Fransisco Licea MD LAB - BLOOD ORDERA BLES LABORATORY [facility] Lab [address] [facility] Lab (1st floor, no room number) [place] [address], [facility] [phone] * (ABNORMAL) Basic metabolic panel (03/27/2023 6:31 AM MOTORCOACH DRIVER) Only the most recent of5 resultswithin the time period is included. Sodium 134(L) 135 - 145 mmol/L 03/27/2023 6:59 AM [facility] Comment:Reference intervals for this test were updated on 01/24/2023 to more accurately reflect our healthy population. There may be differences in the flagging of prior results with similar values performed with this method. Interpretation of those prior results can be made in the context of the updated reference intervals. Potassium 4.1 3.4 - 5.3 mmol/L 03/27/2023 6:59 AM [facility] Chloride 101 98 - 107 mmol/L 03/27/2023 6:59 AM [facility] Carbon Dioxide (CO2) 24 22 - 29 mmol/L 03/27/2023 6:59 AM [facility] Anion Gap 9 7 - 15 mmol/L 03/27/2023 6:59 AM [facility] Urea Nitrogen 15.5 8.0 - 23.0 mg/dL 03/27/2023 6:59 AM [facility] Creatinine 0.84 0.51 - 0.95 mg/dL 03/27/2023 6:59 AM [facility] GFR Estimate 72 >60 mL/min/1. 73m2 03/27/2023 6:59 AM MOTORCOACH DRIVER LABORATORY Calcium 8.5(L) 8.8 - 10.2 mg/dL 03/27/2023 6:59 AM MOTORCOACH DRIVER LABORATORY Glucose 102(H) 70 - 99 mg/dL 03/27/2023 6:59 AM MOTORCOACH DRIVER LABORATORY Blood STRUCTURE OF RIGHT UPPER LIMB / Unknown Venipuncture / Unknown 03/27/2023 6:31 AM MOTORCOACH DRIVER 03/27/2023 6:39 AM MOTORCOACH DRIVER Bernice Stearns MD LAB - BLOOD ORDER MILE LABORATORY [facility] [address] Lab (1st floor, no room number) [place] [address], [place] [phone] * (ABNORMAL) Glucose by meter (03/25/2023 4:56 PM MOTORCOACH DRIVER) [facility] GLUCOSE BY METER POCT 119(H) 70 - 99 mg/dL 03/25/2023 5:04 PM MOTORCOACH DRIVER LABORATORY POC Blood, Capillary BLOOD SPECIMEN / Unknown 03/25/2023 4:56 PM MOTORCOACH DRIVER 03/25/2023 5:04 PM MOTORCOACH DRIVER Fransisco Licea MD LAB - BEAKER POCT LABORATORY [facility] [address] Lab (1st floor, no room number) [place] [address], [place] [phone] * US Renal Complete Non-Vascular (03/25/2023 11:14 AM MOTORCOACH DRIVER) Anatomical Region Laterality Modality Abdomen/Pelvis Ultrasound 03/25/2023 11:1 4 AM MOTORCOACH DRIVER Impressions 03/25/2023 3:04 PM MOTORCOACH DRIVER IMPRESSION: 1. ??Normal kidney ultrasound. Narrative 03/25/2023 3:04 PM MOTORCOACH DRIVER EXAM: US RENAL COMPLETE NON-VASCULAR LOCATION: [facility] DATE: 03/25/2023 INDICATION: BRICE post op abdominal surgery, rule out obstruction COMPARISON: None. TECHNIQUE: Routine Bilateral Renal and Bladder Ultrasound. FINDINGS: RIGHT KIDNEY: 10.2 cm. Normal without hydronephrosis or masses. LEFT KIDNEY: 11.1 cm. Normal without hydronephrosis or masses. BLADDER: Normal. Procedure Note Kirby Diamond MD - 03/25/2023 EXAM: US RENAL COMPLETE NON-VASCULAR LOCATION: [facility] DATE: 03/25/2023 INDICATION: BRICE post op abdominal surgery, rule out obstruction COMPARISON: None. TECHNIQUE: Routine Bilateral Renal and Bladder Ultrasound. FINDINGS: RIGHT KIDNEY: 10.2 cm. Normal without hydronephrosis or masses. LEFT KIDNEY: 11.1 cm. Normal without hydronephrosis or masses. BLADDER: Normal. IMPRESSION: 1. Normal kidney ultrasound. Bernice Stearns MD IMG US ORDERABLES * EKG 12-lead, tracing only (03/24/2023 3:35 PM MOTORCOACH DRIVER) Systolic Blood Pressure mmHg RADIOLOGY RESULTS Diastolic Blood Pressure mmHg RADIOLOGY RESULTS Ventricular Rate 102 BPM RAD IOLOGY RESULTS Atrial Rate 102 BPM RADIOLOG Y RESULTS MS Interval 178 ms RADIOLOG Y RESULTS QRS Duration 88 ms RADIOLO GY RESULTS QT 354 ms RADIOLOGY RESULTS QTc 461 ms RADIOLOGY RESULTS P [place] 72 degrees RADIOLOGY RESULTS R AXIS 75 degrees RADIOLOGY RESULTS T [place] 74 degrees RADIOLOGY RESULTS Interpretation ECG Sinus tachycardia Possible Left atrial enlargement Cannot rule out Anterior infarct , age undetermined Abnormal ECG No previous ECGs available IVCD in inferior leads Confirmed by MD TERRI, MERRILL ([id number]), editorial clerk Tremaine Brown ([id number]) on 03/27/2023 11:15:18 AM RADIOLOGY RESULTS 03/24/2023 3:35 PM MOTORCOACH DRIVER 03/27/2023 11:15 AM MOTORCOACH DRIVER Bernice Stearns MD ECG ORDERABLES RADIOLOGY RESULTS * (ABNORMAL) Phosphorus (03/24/2023 7:04 AM MOTORCOACH DRIVER) Phosphorus 4.7(H) 2.5 - 4.5 mg/dL 03/24/2023 7:44 AM MOTORCOACH DRIVER [facility] Blood BLOOD SPECIMEN / Unknown Venipuncture / Unknown 03/24/2023 7:04 AM MOTORCOACH DRIVER 03/24/2023 7:22 AM MOTORCOACH DRIVER Cody Villarreal MD LAB - BLOOD ORDERABL ES [facility] Lab [address] Lab (1st floor, no room number) [place] [address], [facility] [phone] * (ABNORMAL) Hepatic function panel (03/24/2023 7:04 AM MOTORCOACH DRIVER) Pathologist [facility] Protein Total 6.1(L) 6.4 - 8.3 g/dL 03/24/2023 7:44 AM MOTORCOACH DRIVER [facility] Albumin 3.2(L) 3.5 - 5.2 g/dL 03/24/2023 7:44 AM MOTORCOACH DRIVER [facility] Bilirubin Total 0.8 <=1.2 mg/dL 03/24/2023 7:44 AM MOTORCOACH DRIVER [facility] Alkaline Phosphatase 113 40 - 150 U/L 03/24/2023 7:44 AM MOTORCOACH DRIVER [facility] Comment:Reference intervals for this test were updated on 03/14/2023 to more accurately reflect our healthy population. There may be differences in the flagging of prior results with similar values performed with this method. Interpretation of those prior results can be made in the context of the updated reference intervals. AST 64(H) 0 - 45 U/L 03/24/2023 7:44 AM MOTORCOACH DRIVER [facility] Comment:Reference intervals for this test were updated on 10/10/2022 to more accurately reflect our healthy population. There may be differences in the flagging of prior results with similar values performed with this method. Interpretation of those prior results can be made in the context of the updated reference intervals. ALT 58(H) 0 - 50 U/L 03/24/2023 7:44 AM MOTORCOACH DRIVER [facility] Comment:Reference intervals for this test were updated on 10/10/2022 to more accurately reflect our healthy population. There may be differences in the flagging of prior results with similar values performed with this method. Interpretation of those prior results can be made in the context of the updated reference intervals. Bilirubin Direct 0.35(H) 0.00 - 0.30 mg/dL 03/24/2023 7:44 AM MOTORCOACH DRIVER LABORATORY Blood BLOOD SPECIMEN / Unknown Venipuncture / Unknown 03/24/2023 7:04 AM MOTORCOACH DRIVER 03/24/2023 7:22 AM MOTORCOACH DRIVER Cody Villarreal MD LAB - BLOOD ORDERABL ES [facility] Acute Care Lab [address] Lab (1st floor, no room number) [place] [address], [facility] [phone] * XR Abdomen Port 1 View (03/24/2023 12:29 AM MOTORCOACH DRIVER) Anatomical Region Laterality Modality Abdomen/Pelvis Digital Radiogra phy 03/24/2023 12:2 9 AM MOTORCOACH DRIVER Impressions 03/24/2023 12:31 AM MOTORCOACH DRIVER IMPRESSION: NG tube side-port is at the EG junction and should be advanced approximately 8 cm. Prior postoperative changes. Normal bowel gas pattern. Significant thoracolumbar curvature convex to the left. Narrative 03/24/2023 12:31 AM MOTORCOACH DRIVER EXAM: XR ABDOMEN PORT 1 VIEW LOCATION: [facility] DATE: 03/24/2023 INDICATION: confirm NG placement for decompression COMPARISON: None. Procedure Note Davy Arnold MD - 03/24/2023 EXAM: XR ABDOMEN PORT 1 VIEW LOCATION: [facility] DATE: 03/24/2023 INDICATION: confirm NG placement for decompression COMPARISON: None. IMPRESSION: NG tube side-port is at the EG junction and should be advancedapproximately 8 cm. Prior postoperative changes. Normal bowel gas pattern.Significant thoracolumbar curvature convex to the left. Cody Villarreal MD IMG DIAGNOSTIC IMAGI NG ORDERABLES * ANE AIRWAY ETT PERFORMABLE (03/23/2023 6:36 PM MOTORCOACH DRIVER) Narrative Nura Garces APRN ENVIRONMENTAL MONITORING TECHNICIAN - 03/23/2023 6:36 PM MOTORCOACH DRIVER Nura Garces APRN ENVIRONMENTAL MONITORING TECHNICIAN ? 03/23/2023 ??6:48 PM Airway ? Patient location during procedure: OR ? Procedure Start/Stop Times: 03/23/2023 6:36 PM Staff - ? ENVIRONMENTAL MONITORING TECHNICIAN: Nura Garces APRN CRNA ? Performed By: ENVIRONMENTAL MONITORING TECHNICIAN Consent for Airway ? Urgency: elective Indications [...] Time: 03/23/2023 6:36 PM Richy Scott MD MS ANESTHESIA * Potassium (03/23/2023 6:19 AM MOTORCOACH DRIVER) Potassium 4.3 3.4 - 5.3 mmol/L 03/23/2023 7:32 AM MOTORCOACH DRIVER LABORATORY Blood STRUCTURE OF LEFT UPPER LIMB / Unknown Venipuncture / Unknown 03/23/2023 6:19 AM MOTORCOACH DRIVER 03/23/2023 6:34 AM MOTORCOACH DRIVER Bernice Stearns MD LAB - BLOOD ORDER MILE RH LAB[facility]ATORY [facility] Lab [address] Lab (1st floor, no room number) [place] [address] [phone] * (ABNORMAL) Comprehensive metabolic panel (03/23/2023 6:19 AM MOTORCOACH DRIVER) [facility] Sodium 137 135 - 145 mmol/L 03/23/2023 6:55 AM [facility] Comment:Reference intervals for this test were updated on 01/24/2023 to more accurately reflect our healthy population. There may be differences in the flagging of prior results with similar values performed with this method. Interpretation of those prior results can be made in the context of the updated reference intervals. Potassium 4.3 3.4 - 5.3 mmol/L 03/23/2023 6:55 AM [facility] Carbon Dioxide (CO2) 24 22 - 29 mmol/L 03/23/2023 6:55 AM [facility] Anion Gap 10 7 - 15 mmol/L 03/23/2023 6:55 AM [facility] Urea Nitrogen 20.3 8.0 - 23.0 mg/dL 03/23/2023 6:55 AM [facility] Creatinine 0.91 0.51 - 0.95 mg/dL 03/23/2023 6:55 AM [facility] GFR Estimate 65 >60 mL/min/1. 73m2 03/23/2023 6:55 AM [facility] Calcium 8.4(L) 8.8 - 10.2 mg/dL 03/23/2023 6:55 AM [facility] Chloride 103 98 - 107 mmol/L 03/23/2023 6:55 AM [facility] Glucose 102(H) 70 - 99 mg/dL 03/23/2023 6:55 AM [facility] Alkaline Phosphatase 140 40 - 150 U/L 03/23/2023 6:55 AM [facility] Comment:Reference intervals for this test were updated on 03/14/2023 to more accurately reflect our healthy population. There may be differences in the flagging of prior results with similar values performed with this method. Interpretation of those prior results can be made in the context of the updated reference intervals. AST 114(H) 0 - 45 U/L 03/23/2023 6:55 AM [facility] Comment:Reference intervals for this test were updated on 10/10/2022 to more accurately reflect our healthy population. There may be differences in the flagging of prior results with similar values performed with this method. Interpretation of those prior results can be made in the context of the updated reference intervals. ALT 95(H) 0 - 50 U/L 03/23/2023 6:55 AM MOTORCOACH DRIVER [facility] Comment:Reference intervals for this test were updated on 10/10/2022 to more accurately reflect our healthy population. There may be differences in the flagging of prior results with similar values performed with this method. Interpretation of those prior results can be made in the context of the updated reference intervals. Protein Total 6.7 6.4 - 8.3 g/dL 03/23/2023 6:55 AM MOTORCOACH DRIVER [facility] Albumin 3.7 3.5 - 5.2 g/dL 03/23/2023 6:55 AM MOTORCOACH DRIVER [facility] Bilirubin Total 0.7 <=1.2 mg/dL 03/23/2023 6:55 AM MOTORCOACH DRIVER [facility] Blood STRUCTURE OF LEFT UPPER LIMB / Unknown Venipuncture / Unknown 03/23/2023 6:19 AM MOTORCOACH DRIVER 03/23/2023 6:34 AM MOTORCOACH DRIVER Radha Blood MD LAB - BLOOD ORDERABL ES RH LABORATORY [facility] Lab [address] [facility] Lab (1st floor, no room number) [place] [address], [facility] [phone] * (ABNORMAL) CBC with platelets (03/23/2023 6:19 AM MOTORCOACH DRIVER) Only the most recent of2 resultswithin the time period is included. WBC Count 9.4 4.0 - 11.0 10e3/uL 03/23/2023 6:37 AM MOTORCOACH DRIVER [facility] RBC Count 3.76(L) 3.80 - 5.20 10e6/uL 03/23/2023 6:37 AM MOTORCOACH DRIVER [facility] Hemoglobin 11.8 11.7 - 15.7 g/dL 03/23/2023 6:37 AM MOTORCOACH DRIVER [facility] Hematocrit 36.6 35.0 - 47.0 % 03/23/2023 6:37 AM MOTORCOACH DRIVER [facility] MCV 97 78 - 100 fL 03/23/2023 6:37 AM MOTORCOACH DRIVER [facility] MCH 31.4 26.5 - 33.0 pg 03/23/2023 6:37 AM MOTORCOACH DRIVER [facility] MCHC 32.2 31.5 - 36.5 g/dL 03/23/2023 6:37 AM MOTORCOACH DRIVER [facility] RDW 13.6 10.0 - 15.0 % 03/23/2023 6:37 AM MOTORCOACH DRIVER [facility] Platelet Count 256 150 - 450 10e3/uL 03/23/2023 6:37 AM MOTORCOACH DRIVER [facility] Blood STRUCTURE OF LEFT UPPER LIMB / Unknown Venipuncture / Unknown 03/23/2023 6:19 AM MOTORCOACH DRIVER 03/23/2023 6:34 AM MOTORCOACH DRIVER Radha Blood MD LAB - BLOOD ORDERABL ES [facility] Lab [address] Lab (1st floor, no room number) [place] [address], [facility] [phone] * Lactic acid whole blood (03/22/2023 5:05 PM MOTORCOACH DRIVER) Lactic Acid 0.9 0.7 - 2.0 mmol/L 03/22/2023 5:22 PM MOTORCOACH DRIVER [facility] Blood STRUCTURE OF RIGHT UPPER LIMB / Unknown Venipuncture / Unknown 03/22/2023 5:05 PM MOTORCOACH DRIVER 03/22/2023 5:11 PM MOTORCOACH DRIVER Radha Blood MD LAB - BLOOD ORDERABL ES [facility] [address] (1st floor, no room number) [place] [address], [place] [phone] * LAB RESULT - HIM SCAN (03/22/2023 12:00 AM MOTORCOACH DRIVER) 03/22/2023 Provider Outside NON-BEAKER LAB TE STING * CT IMAGING - HIM SCAN (03/22/2023 12:00 AM MOTORCOACH DRIVER) Anatomical Region Laterality Modality Computed Tomogra phy 03/22/[address] ORDERABLES from Last 3 Months Advance Directives For more information, please contact: [phone] Latest Code Status on File Code Status Date Activated Date Inactivated Comments Full Code 03/22/2023 6:21 PM 03/27/2023 3:49 PM All basic and advanced life-sustaining interventions are performed as appropriate Question Answer Comments Code status determined by: Discussion with patient/ legal decision maker Care Teams [employer] Superintendent Relationship Specialty Start Date End Date Juan Rojas MD [address] [place] [address] PCP - General Family Medicine 03/23/23
--- OUTSIDE RECORDS SUMMARY | 2023-05-26 16:12 | XMS_ITS | Referral Summary ---
Author Name Unknown Organization [facility] Address [address] [place] [address] Care Team Providers Care Cloth Packer Name Role Phone Juan Rojas MD Primary Care Provider [phone] Encounters Date Type Department Care Team Description 04/10/2023 Telephone [facility] [address] [place] [phone] Daisy Pedraza PA-C 04/04/2023 Telephone [facility] [address] [place] [phone] Cody Villarreal MD Post-Op - General Surgery (Can home health remove miguelito? ) 03/28/2023 Telephone [facility] [address] [place] [phone] Cody Villarreal MD Post-Op - General Surgery (Need wound vac supplies and orders. ) 03/22/2023 3:53 PM PAPER MILL SUPERVISOR - 03/27/2023 1:40 PM PAPER MILL SUPERVISOR Hospital Encounter [facility] Ortho Spine [address] [place] [phone] Fransisco Licea MD Dorn, Karen T, MD SBO (small bowel obstruction) (H) (Primary Dx) Discharge Disposition: Home or Self Care 03/23/2023 6:26 PM PAPER MILL SUPERVISOR Anesthesia Event [facility] PeriOp Services [address] [place] [phone] Richy Scott MD Osborn, Ronald D, DO 03/23/2023 5:30 PM PAPER MILL SUPERVISOR - 03/23/2023 7:25 PM PAPER MILL SUPERVISOR Surgery [facility] Services [address] [place] [phone] Cody Villarreal MD LAPAROSCOPY, DIAGNOSTIC, BY GENERAL SURGERY, convert to open, lysis of adhesions, partial mesh explantation, repair of small bowel enterotomy 03/22/2023 Telephone [facility] - General Medicine & Pediatrics [address] [place] [phone] Louise Younger PA-C from Last 3 [...] Comments Blood Pressure 155/66 03/27/2023 8:11 AM PAPER MILL SUPERVISOR Pulse 90 03/27/2023 8:11 AM PAPER MILL SUPERVISOR Temperature 36.5 ??C (97.7 ??F) 03/27/2023 8:11 AM CS T Respiratory Rate 18 03/27/2023 8:11 AM PAPER MILL SUPERVISOR Oxygen Saturation 93% 03/27/2023 8:11 AM PAPER MILL SUPERVISOR Inhaled Oxygen Concentration - - Weight 98.3 kg (216 lb 11.4 oz) 03/22/2023 3:57 PM PAPER MILL SUPERVISOR Height 160 cm (5' 3) 03/22/2023 5:00 PM PAPER MILL SUPERVISOR Body Mass Index 38.39 03/22/2023 3:57 PM PAPER MILL SUPERVISOR Plan of Treatment Not on file Procedures Procedure Name Priority Date/Time Associated Diagnosis Comments CBC WITH PLATELETS & DIFFERENTIAL Routine 03/27/2023 6:31 AM PAPER MILL SUPERVISOR RBC AND PLATELET MORPHOLOGY Routine 03/27/2023 6:31 AM PAPER MILL SUPERVISOR CBC WITH PLATELETS AND DIFFERENTIAL Routine 03/27/2023 6:31 AM PAPER MILL SUPERVISOR BASIC METABOLIC PANEL Routine 03/27/2023 6:31 AM PAPER MILL SUPERVISOR MAGNESIUM Routine 03/27/2023 6:31 AM PAPER MILL SUPERVISOR CBC WITH PLATELETS & DIFFERENTIAL Routine 03/26/2023 6:54 AM PAPER MILL SUPERVISOR CBC WITH PLATELETS AND DIFFERENTIAL Routine 03/26/2023 6:54 AM PAPER MILL SUPERVISOR MAGNESIUM Routine 03/26/2023 6:54 AM PAPER MILL SUPERVISOR BASIC METABOLIC PANEL Routine 03/26/2023 6:54 AM PAPER MILL SUPERVISOR GLUCOSE BY METER Routine 03/25/2023 4:56 PM PAPER MILL SUPERVISOR US RENAL COMPLETE NON-VASCULAR Routine 03/25/2023 11:14 AM PAPER MILL SUPERVISOR CBC WITH PLATELETS & DIFFERENTIAL Routine 03/25/2023 6:54 AM PAPER MILL SUPERVISOR CBC WITH PLATELETS AND DIFFERENTIAL Routine 03/25/2023 6:54 AM PAPER MILL SUPERVISOR BASIC METABOLIC PANEL Routine 03/25/2023 6:54 AM PAPER MILL SUPERVISOR MAGNESIUM Routine 03/25/2023 6:54 AM PAPER MILL SUPERVISOR EKG 12-LEAD, TRACING ONLY Routine 03/24/2023 3:35 PM PAPER MILL SUPERVISOR CBC WITH PLATELETS & DIFFERENTIAL Routine 03/24/2023 7:04 AM PAPER MILL SUPERVISOR CBC WITH PLATELETS AND DIFFERENTIAL Routine 03/24/2023 7:04 AM PAPER MILL SUPERVISOR PHOSPHORUS Routine 03/24/2023 7:04 AM PAPER MILL SUPERVISOR HEPATIC FUNCTION PANEL Routine 7:04 AM PAPER MILL SUPERVISOR BASIC METABOLIC PANEL Routine 03/24/2023 7:04 AM PAPER MILL SUPERVISOR MAGNESIUM Routine 03/24/2023 7:04 AM PAPER MILL SUPERVISOR XR ABDOMEN PORT 1 VIEW Routine 12:29 AM PAPER MILL SUPERVISOR ANE AIRWAY ETT PERFORMABLE Routine 03/23/2023 6:36 PM PAPER MILL SUPERVISOR LAPAROSCOPY, DIAGNOSTIC, BY GENERAL SURGERY 03/23/2023 6:19 PM PAPER MILL SUPERVISOR SBO (small bowel obstruction) (H) POTASSIUM Routine 03/23/2023 6:19 AM PAPER MILL SUPERVISOR MAGNESIUM Routine 03/23/2023 6:19 AM PAPER MILL SUPERVISOR CBC WITH PLATELETS Routine 03/23/2023 6: 19 AM PAPER MILL SUPERVISOR COMPREHENSIVE METABOLIC PANEL Routine 03/23/2023 6:19 AM PAPER MILL SUPERVISOR LACTIC ACID WHOLE BLOOD STAT 03/22/2023 5:05 PM PAPER MILL SUPERVISOR CBC WITH PLATELETS STAT 03/22/2023 5: 05 PM PAPER MILL SUPERVISOR BASIC METABOLIC PANEL STAT 03/22/2023 5:05 PM PAPER MILL SUPERVISOR LAB RESULT - HIM SCAN 03/22/2023 12:[address] IMAGING - HIM SCAN 03/22/2023 12:00 AM PAPER MILL SUPERVISOR from Last 3 Months Results * (ABNORMAL) RBC and Platelet Morphology (03/27/2023 6:31 AM PAPER MILL SUPERVISOR) Platelet Assessment Platelets Clumped(A) Automated Count Confirmed. Platelet morphology is normal. 03/27/2023 7:27 AM PAPER MILL SUPERVISOR [facility] Acanthocytes 03/27/2023 7:27 AM PAPER MILL SUPERVISOR [facility] Merrill Rods 03/27/2023 7:27 AM PAPER MILL SUPERVISOR [facility] Basophilic Stippling 03/27/2023 7:27 AM PAPER MILL SUPERVISOR [facility] Bite Cells 03/27/2023 7:27 AM PAPER MILL SUPERVISOR [facility] Blister Cells 03/27/2023 7:27 AM PAPER MILL SUPERVISOR [facility] Raya Cells 03/27/2023 7:27 AM PAPER MILL SUPERVISOR [facility] Elliptocytes 03/27/2023 7:27 AM PAPER MILL SUPERVISOR [facility] Hgb C Crystals 03/27/2023 7:27 AM PAPER MILL SUPERVISOR [facility] [place] Bodies 03/27/2023 7:27 AM PAPER MILL SUPERVISOR [facility] Hypersegmented Neutrophils 03/27/2023 7:27 AM PAPER MILL SUPERVISOR [facility] Polychromasia 03/27/2023 7:27 AM PAPER MILL SUPERVISOR [facility] RBC agglutination 023 7:27 AM PAPER MILL SUPERVISOR [facility] RBC Fragments 03/27/2023 7:27 AM PAPER MILL SUPERVISOR [facility] Reactive Lymphocytes 03/27/2023 7:27 AM PAPER MILL SUPERVISOR [facility] Rouleaux 03/27/2023 7:27 AM PAPER MILL SUPERVISOR [facility] Sickle Cells 03/27/2023 7:27 AM PAPER MILL SUPERVISOR [facility] Smudge Cells 03/27/2023 7:27 AM PAPER MILL SUPERVISOR [facility] Spherocytes 03/27/2023 7:27 AM PAPER MILL SUPERVISOR [facility] Stomatocytes 03/27/2023 7:27 AM PAPER MILL SUPERVISOR [facility] Target Cells 03/27/2023 7:27 AM PAPER MILL SUPERVISOR [facility] Teardrop Cells 03/27/2023 7:27 AM PAPER MILL SUPERVISOR [facility] Toxic Neutrophils 023 7:27 AM PAPER MILL SUPERVISOR [facility] RBC Morphology Confirmed RBC Indices 03/27/2023 7:27 AM PAPER MILL SUPERVISOR [facility] Blood STRUCTURE OF RIGHT UPPER LIMB / Unknown Venipuncture / Unknown 03/27/2023 6:31 AM PAPER MILL SUPERVISOR 03/27/2023 6:39 AM PAPER MILL SUPERVISOR Berncie Stearns MD LAB - BLOOD ORDER MILE [facility] [address] Lab (1st floor, no room number) [place] [address] [phone] * (ABNORMAL) CBC with platelets and differential (03/27/2023 6:31 AM PAPER MILL SUPERVISOR) Only the most recent of4 resultswithin the time period is included. WBC Count 6.9 4.0 - 11.0 10e3/uL 03/27/2023 7:29 AM PAPER MILL SUPERVISOR [facility] RBC Count 2.95(L) 3.80 - 5.20 10e6/uL 03/27/2023 7:29 AM PAPER MILL SUPERVISOR [facility] Hemoglobin 9.2(L) 11.7 - 15.7 g/dL 03/27/2023 7:29 AM PAPER MILL SUPERVISOR [facility] Hematocrit 29.6(L) 35.0 - 47.0 % 03/27/2023 7:29 AM PAPER MILL SUPERVISOR [facility] MCV 100 78 - 100 fL 03/27/2023 7:29 AM PAPER MILL SUPERVISOR [facility] MCH 31.2 26.5 - 33.0 pg 03/27/2023 7:29 AM PAPER MILL SUPERVISOR [facility] MCHC 31.1(L) 31.5 - 36.5 g/dL 03/27/2023 7:29 AM PAPER MILL SUPERVISOR [facility] RDW 13.9 10.0 - 15.0 % 03/27/2023 7:29 AM PAPER MILL SUPERVISOR LABORATORY Platelet Count 03/27/2023 7:29 AM PAPER MILL SUPERVISOR [facility] Comment:Platelets Clumped-Pl atelet Count Not Available % Neutrophils 62 % 03/27/2023 7:29 AM PAPER MILL SUPERVISOR [facility] % Lymphocytes 21 % 03/27/2023 7:29 AM PAPER MILL SUPERVISOR [facility] % Monocytes 14 % 03/27/2023 7:29 AM PAPER MILL SUPERVISOR LABORATORY % Eosinophils 1 % 03/27/2023 7:29 AM PAPER MILL SUPERVISOR LABORATORY % Basophils 1 % 03/27/2023 7:29 AM PAPER MILL SUPERVISOR [facility] % Immature Granulocytes 1 % 03/27/2023 7:29 AM PAPER MILL SUPERVISOR LABORATORY NRBCs per 100 WBC 0 <1 /100 023 7:29 AM PAPER MILL SUPERVISOR LABORATORY Absolute Neutrophils 4.4 1.6 - 8.3 10e3/uL 03/27/2023 7:29 AM PAPER MILL SUPERVISOR LABORATORY Absolute Lymphocytes 1.4 0.8 - 5.3 10e3/uL 03/27/2023 7:29 AM PAPER MILL SUPERVISOR LABORATORY Absolute Monocytes 0.9 0.0 - 1.3 10e3/uL 03/27/2023 7:29 AM PAPER MILL SUPERVISOR LABORATORY Absolute Eosinophils 0.0 0.0 - 0.7 10e3/uL 03/27/2023 7:29 AM PAPER MILL SUPERVISOR LABORATORY Absolute Basophils 0.0 0.0 - 0.2 10e3/uL 03/27/2023 7:29 AM [facility] Absolute Immature Granulocytes 0.1 <=0.4 10e3/uL 03/27/2023 7:29 AM [facility] Absolute NRBCs 0.0 10e3/uL 03/27/2023 7:29 AM [facility] Blood STRUCTURE OF RIGHT UPPER LIMB / Unknown Venipuncture / Unknown 03/27/2023 6:31 AM PAPER MILL SUPERVISOR 03/27/2023 6:39 AM PAPER MILL SUPERVISOR Bernice Stearns MD LAB - BLOOD ORDER MILE LABORATORY [facility] Lab [address] Lab (1st floor, no room number) [place] [address], [facility] [phone] * (ABNORMAL) Magnesium (03/27/2023 6:31 AM PAPER MILL SUPERVISOR) Only the most recent of5 resultswithin the time period is included. Magnesium 1.6(L) 1.7 - 2.3 mg/dL 03/27/2023 6:59 AM PAPER MILL SUPERVISOR LABORATORY Blood STRUCTURE OF RIGHT UPPER LIMB / Unknown Venipuncture / Unknown 03/27/2023 6:31 AM PAPER MILL SUPERVISOR 03/27/2023 6:39 AM PAPER MILL SUPERVISOR Fransisco Licea MD LAB - BLOOD ORDERA BLES Performing Organization Address City/[facility]/ZIP Co de Phone Number [facility] Acute Care Lab [address] Lab (1st floor, no room number) [place] [address], [facility] [phone] * (ABNORMAL) Basic metabolic panel (03/27/2023 6:31 AM PAPER MILL SUPERVISOR) Only the most recent of5 resultswithin the time period is included. Sodium 134(L) 135 - 145 mmol/L 03/27/2023 6:59 AM PAPER MILL SUPERVISOR LABORATORY Comment:Reference intervals for this test were updated on 01/24/2023 to more accurately reflect our healthy population. There may be differences in the flagging of prior results with similar values performed with this method. Interpretation of those prior results can be made in the context of the updated reference intervals. Potassium 4.1 3.4 - 5.3 mmol/L 03/27/2023 6:59 AM PAPER MILL SUPERVISOR LABORATORY Chloride 101 98 - 107 mmol/L 03/27/2023 6:59 AM PAPER MILL SUPERVISOR LABORATORY Carbon Dioxide (CO2) 24 22 - 29 mmol/L 03/27/2023 6:59 AM [facility] Anion Gap 9 7 - 15 mmol/L 03/27/2023 6:59 AM [facility] Urea Nitrogen 15.5 8.0 - 23.0 mg/dL 03/27/2023 6:59 AM [facility] Creatinine 0.84 0.51 - 0.95 mg/dL 03/27/2023 6:59 AM [facility] GFR Estimate 72 >60 mL/min/1. 73m2 03/27/2023 6:59 AM [facility] Calcium 8.5(L) 8.8 - 10.2 mg/dL 03/27/2023 6:59 AM [facility] Glucose 102(H) 70 - 99 mg/dL 03/27/2023 6:59 AM [facility] Blood STRUCTURE OF RIGHT UPPER LIMB / Unknown Venipuncture / Unknown 03/27/2023 6:31 AM PAPER MILL SUPERVISOR 03/27/2023 6:39 AM PAPER MILL SUPERVISOR Bernice Stearns MD LAB - BLOOD ORDER MILE [facility] [address] Lab (1st floor, no room number) [place] [address], [facility] [phone] * (ABNORMAL) Glucose by meter (03/25/2023 4:56 PM PAPER MILL SUPERVISOR) [facility] GLUCOSE BY METER POCT 119(H) 70 - 99 mg/dL 03/25/2023 5:04 PM PAPER MILL SUPERVISOR LABORATORY POC Blood, Capillary BLOOD SPECIMEN / Unknown 03/25/2023 4:56 PM PAPER MILL SUPERVISOR 03/25/2023 5:04 PM PAPER MILL SUPERVISOR Fransisco Licea MD LAB - BEAKER POCT [facility] Acute [facility] Lab [address] Lab (1st floor, no room number) [place] [address], [place] [phone] * US Renal Complete Non-Vascular (03/25/2023 11:14 AM PAPER MILL SUPERVISOR) Anatomical Region Laterality Modality Abdomen/Pelvis Ultrasound 03/25/2023 11:1 4 AM PAPER MILL SUPERVISOR Impressions 03/25/2023 3:04 PM PAPER MILL SUPERVISOR IMPRESSION: 1. ??Normal kidney ultrasound. Narrative 03/25/2023 3:04 PM PAPER MILL SUPERVISOR EXAM: US RENAL COMPLETE NON-VASCULAR LOCATION: [facility] DATE: 03/25/2023 INDICATION: BRICE post op abdominal surgery, rule out obstruction COMPARISON: None. TECHNIQUE: Routine Bilateral Renal and Bladder Ultrasound. FINDINGS: RIGHT KIDNEY: 10.2 cm. Normal without hydronephrosis or masses. LEFT KIDNEY: 11.1 cm. Normal without hydronephrosis or masses. BLADDER: Normal. Procedure Note Kirby Diamond MD - 03/25/2023 EXAM: US RENAL COMPLETE NON-VASCULAR LOCATION: [facility] DATE: 03/25/2023 INDICATION: BRICE post op abdominal surgery, rule out obstruction COMPARISON: None. TECHNIQUE: Routine Bilateral Renal and Bladder Ultrasound. FINDINGS: RIGHT KIDNEY: 10.2 cm. Normal without hydronephrosis or masses. LEFT KIDNEY: 11.1 cm. Normal without hydronephrosis or masses. BLADDER: Normal. IMPRESSION: 1. Normal kidney ultrasound. Bernice Stearns MD IMG US ORDERABLES * EKG 12-lead, tracing only (03/24/2023 3:35 PM PAPER MILL SUPERVISOR) Systolic Blood Pressure mmHg RADIOLOGY RESULTS Diastolic Blood Pressure mmHg RADIOLOGY RESULTS Ventricular Rate 102 BPM RAD IOLOGY RESULTS Atrial Rate 102 BPM RADIOLOG Y RESULTS WI Interval 178 ms RADIOLOG Y RESULTS QRS Duration 88 ms RADIOLO GY RESULTS QT 354 ms RADIOLOGY RESULTS QTc 461 ms RADIOLOGY RESULTS P [place] 72 degrees RADIOLOGY RESULTS R AXIS 75 degrees RADIOLOGY RESULTS T [place] 74 degrees RADIOLOGY RESULTS Interpretation ECG Sinus tachycardia Possible Left atrial enlargement Cannot rule out Anterior infarct , age undetermined Abnormal ECG No previous ECGs available IVCD in inferior leads Confirmed by MD TERRI, MERRILL ([id number]), editor greeting card Tremaine Brown ([id number]) on 03/27/2023 11:15:18 AM RADIOLOGY RESULTS 03/24/2023 3:35 PM PAPER MILL SUPERVISOR 03/27/2023 11:15 AM PAPER MILL SUPERVISOR Bernice Stearns MD ECG ORDERABLES RADIOLOGY RESULTS * (ABNORMAL) Phosphorus (03/24/2023 7:04 AM PAPER MILL SUPERVISOR) Phosphorus 4.7(H) 2.5 - 4.5 mg/dL 03/24/2023 7:44 AM PAPER MILL SUPERVISOR [facility] Blood BLOOD SPECIMEN / Unknown Venipuncture / Unknown 03/24/2023 7:04 AM PAPER MILL SUPERVISOR 03/24/2023 7:22 AM PAPER MILL SUPERVISOR Cody Villarreal MD LAB - BLOOD ORDERABL ES [facility] [address] Lab (1st floor, no room number) [place] [address], [facility] [phone] * (ABNORMAL) Hepatic function panel (03/24/2023 7:04 AM PAPER MILL SUPERVISOR) Protein Total 6.1(L) 6.4 - 8.3 g/dL 03/24/2023 7:44 AM PAPER MILL SUPERVISOR [facility] Albumin 3.2(L) 3.5 - 5.2 g/dL 03/24/2023 7:44 AM PAPER MILL SUPERVISOR [facility] Bilirubin Total 0.8 <=1.2 mg/dL 03/24/2023 7:44 AM PAPER MILL SUPERVISOR [facility] Alkaline Phosphatase 113 40 - 150 U/L 03/24/2023 7:44 AM PAPER MILL SUPERVISOR [facility] Comment:Reference intervals for this test were updated on 03/14/2023 to more accurately reflect our healthy population. There may be differences in the flagging of prior results with similar values performed with this method. Interpretation of those prior results can be made in the context of the updated reference intervals. AST 64(H) 0 - 45 U/L 03/24/2023 7:44 AM PAPER MILL SUPERVISOR [facility] Comment:Reference intervals for this test were updated on 10/10/2022 to more accurately reflect our healthy population. There may be differences in the flagging of prior results with similar values performed with this method. Interpretation of those prior results can be made in the context of the updated reference intervals. ALT 58(H) 0 - 50 U/L 03/24/2023 7:44 AM PAPER MILL SUPERVISOR [facility] Comment:Reference intervals for this test were updated on 10/10/2022 to more accurately reflect our healthy population. There may be differences in the flagging of prior results with similar values performed with this method. Interpretation of those prior results can be made in the context of the updated reference intervals. Bilirubin Direct 0.35(H) 0.00 - 0.30 mg/dL 03/24/2023 7:44 AM PAPER MILL SUPERVISOR [facility] Blood BLOOD SPECIMEN / Unknown Venipuncture / Unknown 03/24/2023 7:04 AM PAPER MILL SUPERVISOR 03/24/2023 7:22 AM PAPER MILL SUPERVISOR Cody Villarreal MD LAB - BLOOD ORDERABL ES LABORATORY [facility] [address] [facility] Lab (1st floor, no room number) [place] [address], [facility] [phone] * XR Abdomen Port 1 View (03/24/2023 12:29 AM PAPER MILL SUPERVISOR) Anatomical Region Laterality Modality Abdomen/Pelvis Digital Radiogra phy 03/24/2023 12:2 9 AM PAPER MILL SUPERVISOR Impressions 03/24/2023 12:31 AM PAPER MILL SUPERVISOR IMPRESSION: NG tube side-port is at the EG junction and should be advanced approximately 8 cm. Prior postoperative changes. Normal bowel gas pattern. Significant thoracolumbar curvature convex to the left. Narrative 03/24/2023 12:31 AM PAPER MILL SUPERVISOR EXAM: XR ABDOMEN PORT 1 VIEW LOCATION: [facility] DATE: 03/24/2023 INDICATION: confirm NG placement for decompression COMPARISON: None. Procedure Note Davy Arnold MD - 03/24/2023 EXAM: XR ABDOMEN PORT 1 VIEW LOCATION: [facility] DATE: 03/24/2023 INDICATION: confirm NG placement for decompression COMPARISON: None. IMPRESSION: NG tube side-port is at the EG junction and should be advancedapproximately 8 cm. Prior postoperative changes. Normal bowel gas pattern.Significant thoracolumbar curvature convex to the left. Cody Villarreal MD IMG DIAGNOSTIC IMAGI NG ORDERABLES * ANE AIRWAY ETT PERFORMABLE (03/23/2023 6:36 PM PAPER MILL SUPERVISOR) Narrative Nura Garces APRN [employer]ER - 03/23/2023 6:36 PM PAPER MILL SUPERVISOR Nura Garces APRN [employer] TE[employer]ER ? 03/23/2023 ??6:48 PM Airway ? Patient location during procedure: OR ? Procedure Start/Stop Times: 03/23/2023 6:36 PM Staff - ? [employer]ER: Nura Garces APRN CRNA ? Performed By: [employer] TE[employer]ER Consent for Airway ? Urgency: elective Indications [...] Time: 03/23/2023 6:36 PM Richy Scott MD [place] ANESTHESIA * Potassium (03/23/2023 6:19 AM PAPER MILL SUPERVISOR) Potassium 4.3 3.4 - 5.3 mmol/L 03/23/2023 7:32 AM PAPER MILL SUPERVISOR [facility] Blood STRUCTURE OF LEFT UPPER LIMB / Unknown Venipuncture / Unknown 03/23/2023 6:19 AM PAPER MILL SUPERVISOR 03/23/2023 6:34 AM PAPER MILL SUPERVISOR Bernice Stearns MD LAB - BLOOD ORDER MILE LABORATORY [facility] [address] Lab (1st floor, no room number) [place] [address], [facility] [phone] * (ABNORMAL) Comprehensive metabolic panel (03/23/2023 6:19 AM PAPER MILL SUPERVISOR) Sodium 137 135 - 145 mmol/L 03/23/2023 6:55 AM [facility] Comment:Reference intervals for this test were updated on 01/24/2023 to more accurately reflect our healthy population. There may be differences in the flagging of prior results with similar values performed with this method. Interpretation of those prior results can be made in the context of the updated reference intervals. Potassium 4.3 3.4 - 5.3 mmol/L 03/23/2023 6:55 AM [facility] Carbon Dioxide (CO2) 24 22 - 29 mmol/L 03/23/2023 6:55 AM [facility] Anion Gap 10 7 - 15 mmol/L 03/23/2023 6:55 AM [facility] Urea Nitrogen 20.3 8.0 - 23.0 mg/dL 03/23/2023 6:55 AM [facility] Creatinine 0.91 0.51 - 0.95 mg/dL 03/23/2023 6:55 AM [facility] GFR Estimate 65 >60 mL/min/1. 73m2 03/23/2023 6:55 AM [facility] Calcium 8.4(L) 8.8 - 10.2 mg/dL 03/23/2023 6:55 AM [facility] Chloride 103 98 - 107 mmol/L 03/23/2023 6:55 AM [facility] Glucose 102(H) 70 - 99 mg/dL 03/23/2023 6:55 AM [facility] Alkaline Phosphatase 140 40 - 150 U/L 03/23/2023 6:55 AM [facility] Comment:Reference intervals for this test were updated on 03/14/2023 to more accurately reflect our healthy population. There may be differences in the flagging of prior results with similar values performed with this method. Interpretation of those prior results can be made in the context of the updated reference intervals. AST 114(H) 0 - 45 U/L 03/23/2023 6:55 AM PAPER MILL SUPERVISOR [facility] Comment:Reference intervals for this test were updated on 10/10/2022 to more accurately reflect our healthy population. There may be differences in the flagging of prior results with similar values performed with this method. Interpretation of those prior results can be made in the context of the updated reference intervals. ALT 95(H) 0 - 50 U/L 03/23/2023 6:55 AM PAPER MILL SUPERVISOR [facility] Comment:Reference intervals for this test were updated on 10/10/2022 to more accurately reflect our healthy population. There may be differences in the flagging of prior results with similar values performed with this method. Interpretation of those prior results can be made in the context of the updated reference intervals. Protein Total 6.7 6.4 - 8.3 g/dL 03/23/2023 6:55 AM PAPER MILL SUPERVISOR [facility] Albumin 3.7 3.5 - 5.2 g/dL 03/23/2023 6:55 AM PAPER MILL SUPERVISOR [facility] Bilirubin Total 0.7 <=1.2 mg/dL 03/23/2023 6:55 AM PAPER MILL SUPERVISOR [facility] Blood STRUCTURE OF LEFT UPPER LIMB / Unknown Venipuncture / Unknown 03/23/2023 6:19 AM PAPER MILL SUPERVISOR 03/23/2023 6:34 AM PAPER MILL SUPERVISOR Radha Blood MD LAB - BLOOD ORDERABL ES [facility] LAB[facility]ATORY [facility] [address] Lab (1st floor, no room number) [place] [address], [facility] [phone] * (ABNORMAL) CBC with platelets (03/23/2023 6:19 AM PAPER MILL SUPERVISOR) Only the most recent of2 resultswithin the time period is included. WBC Count 9.4 4.0 - 11.0 10e3/uL 03/23/2023 6:37 AM PAPER MILL SUPERVISOR [facility] RBC Count 3.76(L) 3.80 - 5.20 10e6/uL 03/23/2023 6:37 AM PAPER MILL SUPERVISOR [facility] Hemoglobin 11.8 11.7 - 15.7 g/dL 03/23/2023 6:37 AM P[employer] [facility] Hematocrit 36.6 35.0 - 47.0 % 03/23/2023 6:37 AM [employer] [facility] MCV 97 78 - 100 fL 03/23/2023 6:37 AM [employer] [facility] MCH 31.4 26.5 - 33.0 pg 03/23/2023 6:37 AM [employer] [facility] MCHC 32.2 31.5 - 36.5 g/dL 03/23/2023 6:37 AM [employer] [facility] RDW 13.6 10.0 - 15.0 % 03/23/2023 6:37 AM [employer] Platelet Count 256 150 - 450 10e3/uL 03/23/2023 6:37 AM [employer] [facility] Blood STRUCTURE OF LEFT UPPER LIMB / Unknown Venipuncture / Unknown 03/23/2023 6:19 AM [employer] 03/23/2023 6:34 AM [employer] Radha Blood MD LAB - BLOOD ORDERABL ES [facility] [address] [facility] (1st floor, no room number) [place] [address], [facility] [phone] * Lactic acid whole blood (03/22/2023 5:05 PM [employer]) Lactic Acid 0.9 0.7 - 2.0 mmol/L 03/22/2023 5:22 PM [employer] [facility] Blood STRUCTURE OF RIGHT UPPER LIMB / Unknown Venipuncture / Unknown 03/22/2023 5:05 PM PAPER MILL SUPERVISOR 03/22/2023 5:11 PM PAPER MILL SUPERVISOR Radha Blood MD LAB - BLOOD ORDERABL ES [facility] Lab [address] Lab (1st floor, no room number) [place] [address], [facility] [phone] * LAB RESULT - HIM SCAN (03/22/2023 12:00 AM PAPER MILL SUPERVISOR) 03/22/2023 Provider Outside NON-BEAKER LAB TE STING * CT IMAGING - HIM SCAN (03/22/2023 12:00 AM PAPER MILL SUPERVISOR) Anatomical Region Laterality Modality Computed Tomogra phy 03/22/[address] ORDERABLES from Last 3 Months Advance Directives For more information, please contact: [phone] Latest Code Status on File Code Status Date Activated Date Inactivated Comments Full Code 03/22/2023 6:21 PM 03/27/2023 3:49 PM All basic and advanced life-sustaining interventions are performed as appropriate Question Answer Comments Code status determined by: Discussion with patient/ legal decision maker Care Teams Cloth Packer Relationship Specialty Start Date End Date uJan Rojas MD [facility] [address] [place] [address] PCP - General Family Medicine 03/23/23
--- OUTSIDE RECORDS SUMMARY | 2023-05-26 16:12 | XMS_ITS | Encounter Summary ---
Author Name Unknown Organization [place] Address [address] [place] [address] Care Team Providers Care Communications Administrator Name Role Phone Juan Rojas MD Primary Care Provider [phone] Encounter Details Date Type Department Care Team (Late st Contact Info) Description 04/10/2023 Telephone [facility] Surgery Clinic [place] [address] [place] [phone] Daisy Pedraza PA-C [address] [place], [place] [id number] Social History Tobacco Use Types Packs/Day Years [...] Daisy Pedraza PA-C - 04/10/2023 12:44 PM [facility] Post op call note Gail [...] office with any concerns. Daisy Pedraza PA-C ROLLER documented in this encounter Plan of Treatment Not on file documented as of this encounter Visit Diagnoses Not on filedocumented in this encounter Care Teams Communications Administrator Relationship Specialty Start Date End Date Juan Rojas MD [place] [address] [place] [address] PCP - General Family Medicine 03/23/23 documented as of this encounter
--- OUTSIDE RECORDS SUMMARY | 2023-05-26 16:12 | XMS_ITS | Encounter Summary ---
Author Name Unknown Organization [place] Address [address] [facility] [place] [address] Care Team Providers Care Ship'S Captain Name Role Phone Juan Rojas MD Primary Care Provider [phone] Reason for Visit * Reason Onset Date Comments Post-Op - General Surgery 03/28/2023 Need w ound vac supplies and orders. Encounter Details Date Type Department Care Team (Late st Contact Info) Description 03/28/2023 Telephone [facility] Surgery [facility] [address] [facility] [address] [place] [address] Cody Villarreal MD [address] [place] [address] Post-Op - General Surgery (Need [...] this and agree to call PRN Katherin Alan RN-BSN ARE AIDE * Telephone Encounter - Carol Acuna - [...] phone number to reach pt at is: [phone] Ok to leave a message with medical info? Yes. Pharmacy preferred (if calling for a refill): [facility] mail order. ARE AIDE documented in this encounter Plan of Treatment Not on file documented as of this encounter Visit Diagnoses Not on filedocumented in this encounter Care Teams Ship'S Captain Relationship Specialty Start Date End Date Juan Rojas MD [facility] [place] [address] [id number] PCP - General Family Medicine 03/23/23 documented as of this encounter
--- OUTSIDE RECORDS SUMMARY | 2023-05-26 16:12 | XMS_ITS | Encounter Summary ---
Author Name Unknown Organization [place] Address [address] [place] [address] Care Team Providers Care Book Jogger Name Role Phone Juan Rojas MD Primary Care Provider [phone] Reason for Visit * Reason Onset Date Comments Post-Op - General Surgery 04/04/2023 Can [facility] remove miguelito? Encounter Details Date Type Department Care Team (Late st Contact Info) Description 04/04/2023 Telephone [facility] Surgery [facility] [place] [address] [facility] [address] [place] [address] Cody Villarreal MD [address] [place] [address] Post-Op - General Surgery (Can [...] the play. She/patient will call PRN Katherin Alan, RN-BSN OR IT ENGINEER * Telephone Encounter - Carol Acuna - [...] phone number to reach pt at is: [phone] Ok to leave a message with medical info? Yes. Pharmacy preferred (if calling for a refill): N/A OR IT ENGINEER documented in this encounter Plan of Treatment Not on file documented as of this encounter Visit Diagnoses Not on filedocumented in this encounter Care Teams Book Jogger Relationship Specialty Start Date End Date Juan Rojas MD [facility] [address] [facility] [place] [address] PCP - General Family Medicine 03/23/23 documented as of this encounter
--- OUTSIDE RECORDS SUMMARY | 2023-05-26 16:13 | XMS_ITS | Encounter Summary ---
Author Name Unknown Organization [facility] Address [facility] [place] [address] Care Team Providers Care Parts Assembler Name Role Phone Juan Rojas MD Primary Care Provider [phone] Reason for Visit * Auth/Cert (Routine) Specialty Diagnoses / Procedures Referred By Sundar t Referred To Contact Orthopedics Diagnoses SBO (small bowel obstruction) (H) Bowel obstruction SBO (small bowel obstruction) (H) Ortho Spine [address] [place] [address] Referral ID Status Reason Start Date Expiration Date Visits Re quested Visits Authorized [id number] 1 1 Encounter Details Date Type Department Care Team (Late st Contact Info) Description 03/23/2023 5:30 PM FIBER DESIGN ENGINEER - 03/23/2023 7:25 PM FIBER DESIGN ENGINEER Surgery [facility] PeriOp Services [address] [place] [address] Cody Villarreal MD [address] [place] [address] LAPAROSCOPY, DIAGNOSTIC, BY GENERAL SURGERY, [...] Role Service Panel Daisy Pedraza PA-C Assisting Metal Hanger A uthorization 1 Cody Villarreal MD Primary [...] Comments Blood Pressure 150/78 03/23/2023 5:15 PM FIBER DESIGN ENGINEER Pulse 95 03/23/2023 5:15 PM FIBER DESIGN ENGINEER Temperature 36.5 ??C (97.7 ??F) 03/23/2023 5:15 PM CS T Respiratory Rate 16 03/23/2023 5:15 PM FIBER DESIGN ENGINEER Oxygen Saturation 91% 03/23/2023 5:15 PM FIBER DESIGN ENGINEER Inhaled Oxygen Concentration - - Weight 98.3 kg (216 lb 11.4 oz) 03/22/2023 3:57 PM FIBER DESIGN ENGINEER Height 160 cm (5' 3) 03/22/2023 5:00 PM FIBER DESIGN ENGINEER Body Mass Index 38.39 03/22/2023 3:57 PM FIBER DESIGN ENGINEER documented in this encounter Discharge Summaries * Darshan Simmons MD - 03/27/2023 1:40 PM CST [facility] Hospitalist Discharge Summary Date of Admission: [...] your miguelito removed, please call us at [phone] and ask to speak with our nurse. We are located at [address] [address], [place] [address] Follow-up and recommended labs and tests With [...] admitted on 03/22/2023 via direct admission from [facility] with at least partial SBO and suspicion for ostomy stricture (she has had a prior stricture requiring dilation at [facility] 3 years ago). 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 -Resumed at the anti-hypertensives at discharge GERD/hypothyroidism Resuming ROCK CUTTER levothyroxine. Acute blood loss and dilutional anemia -Hgb dropped from 11-8 after IV hydration and surgery. Follow as outpatient. Prediabetic Hgb A1c 03/2022 was 5.9%. Hx of mitral valve stenosis Hx of aortic valve stenosis Hx of cLVH No e/o decompensation. Peripheral neuropathy Continue po gabapentin Remote hx of a DVT Hyperlipidemia Can resume ROCK CUTTER atorvastatin on discharge. Depression Continue ROCK CUTTER bupropion and venlafaxine as tolerated. History of [...] minutes discharging this patient. Darshan Simmons MD [facility] ORTHO SPINE [address] [facility] [address] Physical Exam Vital Signs: Weight: 216 lbs 11.39 oz Primary Care Physician Juan Rojas Discharge Orders Follow-up and recommended labs and tests Follow up with surgery clinic or PCP in about 10 days to have miguelito removed. If you have any questions or concerns or need to make appointment to have your miguelito removed, please call us at [phone] and ask to speak with our nurse. We are located at [address] [address], [place] [address] Activity Your activity upon discharge: activity as [...] EXAM: XR ABDOMEN PORT 1 VIEW LOCATION: [facility] DATE: 03/24/2023 INDICATION: confirm NG placement for decompression COMPARISON: None. Impression IMPRESSION: NG tube side-port is at the EG junction and should be advanced approximately 8 cm. Prior postoperative changes. Normal bowel gas pattern. Significant thoracolumbar curvature convex to theleft. US Renal Complete Non-Vascular Narrative EXAM: US RENAL COMPLETE NON-VASCULAR LOCATION: [facility] DATE: 03/25/2023 INDICATION: BRICE post op [...] Sulfa-cream product 5 or 6 years ago R DESIGN ENGINEER documented in this encounter Medications at Time [...] Dr. Simmons notified and med escripted to [facility], per patient request. Oxycodone returned to discharge pharmacy. Patient also left Provena pump charging chord. Will send via paint sprayer sandblaster to patients home. R DESIGN ENGINEER * Darshan Simmons MD - 03/27/2023 11:48 AM CST 40 minutes spent on discharge. I discussed with Ms. Huynh. R DESIGN ENGINEER * Daisy Pedraza PA-C - 03/27/2023 9:57 AM CST [facility] General Surgery Progress Note Assessment and [...] -- -- 64* 114* Daisy Pedraza PA-C R DESIGN ENGINEER * Bernice Stearns MD - 03/26/2023 7:25 PM CST [facility] Hospitalist Progress Note Assessment & Plan [...] admitted on 03/22/2023 via direct admission from [facility] with at least partial SBO and suspicion for ostomy stricture (she has had a prior stricture requiring dilation at [facility] 3 years ago). 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 - BP remains low / well controlled and have not yet resumed. - Continue to monitor. GERD/hypothyroidism Resuming ROCK CUTTER levothyroxine. Continue PPI by IV. Prediabetic Hgb A1c 03/2022 was 5.9%. Hx of mitral valve stenosis Hx of aortic valve stenosis Hx of cLVH No e/o decompensation. Peripheral neuropathy Continue po gabapentin Remote hx of a DVT Continue SCDs. Considered subQ heparin addition, however, Hgb trending down slightly and likely discharge as soon as 03/27. Encourage ambulation and follow. Hyperlipidemia Can resume ROCK CUTTER atorvastatin on discharge. Depression Continue ROCK CUTTER bupropion and venlafaxine as tolerated. History of COVID 19 vaccination S/p 3 shot pfizer series followed by moderna booster 03/2022 (biv) DVT Prophylaxis: Pneumatic Compression Devices Code Status: Full Code Expected discharge: Anticipate hospital stay at least 1 more day pending post-op course. Bernice Stearns MD FACP Hospitalist Service [facility] Securely message with Talking Data (more info) Interval History Diet being advanced [...] woman seen resting in bed and watching Hyperfair movie. No acute distress. Alert and oriented. [...] previous visit (from the past 24 hour(s)). R DESIGN ENGINEER * Og Baum RN - 03/26/2023 12:09 [...] and Mag active Plan: TBD Discharge: TBD R DESIGN ENGINEER * Daisy Pedraza PA-C - 03/26/2023 10:43 AM CST [facility] General Surgery Progress Note Assessment and [...] -- -- 64* 114* Daisy Pedraza PA-C R DESIGN ENGINEER * Bernice Stearns MD - 03/25/2023 9:45 AM CST [facility] Hospitalist Progress Note Assessment & Plan [...] admitted on 03/22/2023 via direct admission from [facility] with at least partial SBO and suspicion for ostomy stricture (she has had a prior stricture requiring dilation at [facility] 3 years ago). 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 History of COVID 19 vaccination S/p 3 shot pfizer series followed by moderna booster 03/2022 (biv) DVT Prophylaxis: Pneumatic Compression Devices Code Status: Full Code Expected discharge: Anticipate hospital stay at least several more days pending post-op course and surgery recommendations. Bernice Stearns MD FACP Hospitalist Service [facility] Securely message with Talking Data (more info) Interval History Patient's diet has [...] previous visit (from the past 24 hour(s)). R DESIGN ENGINEER * Tiara Lai MD - 03/25/2023 9:10 AM CST [facility] General Surgery Progress Note Assessment and [...] -- 64* 114* Daisy Jacklyn Pedraza PA-C R DESIGN ENGINEER * Bernice Stearns MD - 03/24/2023 2:00 PM CST [facility] Hospitalist Progress Note Assessment & Plan [...] admitted on 03/22/2023 via direct admission from [facility] with at least partial SBO and suspicion for ostomy stricture (she has had a prior stricture requiring dilation at [facility] perhaps 3 years ago). 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 History of COVID 19 vaccination S/p 3 shot pfizer series followed by moderna booster 03/2022 (biv) DVT Prophylaxis: Pneumatic Compression Devices Code Status: Full Code Expected discharge: Anticipate hospital stay at least several more days pending post-op course. Bernice Stearns MD FACP Hospitalist Service [facility] Securely message with Talking Data (more info) Interval History Post op overnight [...] EXAM: XR ABDOMEN PORT 1 VIEW LOCATION: [facility] DATE: 03/24/2023 INDICATION: confirm NG placement for decompression COMPARISON: None. Impression IMPRESSION: NG tube side-port is at the EG junction and should be advanced approximately 8 cm. Prior postoperative changes. Normal bowel gas pattern. Significant thoracolumbar curvature convex to theleft. R DESIGN ENGINEER * Cody Villarreal MD - 03/24/2023 9:35 AM CST [facility] General Surgery Progress Note Assessment and [...] AST 64* 114* -- Daisy Pedraza PA-C R DESIGN ENGINEER * Abdirizak Mullins RN - 03/23/2023 11:10 PM CST Pt arrived from PACU via cart around 2230. On 2L O2. Reoriented to room. R DESIGN ENGINEER * Bernice Stearns MD - 03/23/2023 9:54 AM CST [facility] Hospitalist Progress Note Assessment & Plan [...] admitted on 03/22/2023 via direct admission from [facility] with at least partial SBO and suspicion for ostomy stricture (she has had a prior stricture requiring dilation at [facility] 3 years ago). 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 History of COVID 19 vaccination S/p 3 shot pfizer series followed by moderna booster 03/2022 (biv) DVT Prophylaxis: Pneumatic Compression Devices Code Status: Full Code Expected discharge: Anticipate hospital stay at least several more days pending clinical improvement. Bernice Stearns MD FACP Hospitalist Service [facility] Securely message with Talking Data (more info) Interval History Patient with increased [...] previous visit (from the past 24 hour(s)). R DESIGN ENGINEER * Josey Jefferson MD - 03/22/2023 6:06 [...] at her ileum, by a physician at [facility], and that she may need dilation. Her [...] Fabian. Josey Jefferson MD Colorectal Surgery Fellow R DESIGN ENGINEER documented in this encounter H&P Notes * [...] admitted on 03/22/2023 via direct admission from [facility] with at least partial SBO and suspicion for ostomy stricture (she has had a prior stricture requiring dilation at [facility] perhaps 3years ago) She had been in [...] Fibromuscular dysplasia of the renal arteries Htn Automotive Paint Technician looks to be on both losartan, furosemide, [...] for bowel rest Depression I've cont her window covering sales consultant bupropion and venlafaxine COVID 19 S/p 3 [...] SBOs admittedon 03/22/2023 via direct admission from [facility] with at least partial SBO and suspicion for ostomy stricture (she has had a prior stricture requiring dilation at [facility] perhaps 3 years ago) She had been [...] Medication Sig Last Dose Taking? Auth Provider Anodize Machine Operator End Date acetaminophen (TYLENOL) 500 MG tablet [...] condensed version of labs obtained at OSH R DESIGN ENGINEER documented in this encounter Consult Notes * [...] assistance with transportation home at discharge. Per supercharger repair supervisor, patient is anticipated to discharge today. Per bedside RN patient is appropriate for taxi transport. CM met with patient at the bedside who denied having any family/friends that can provide transportationback to her home. She denied ability to pay for taxi transportation. She confirmed her residence [facility] in [place] and stated she will be able to get into facility when she returns. She stated moreno is planning to stay with her for a couple nights. CM will assist with [employer] taxi set up, bedside RN informed. Addendum 1328: CM confirmed patient's home address in [place] and set up [employer] taxi to patient's home address. CM reinforced importance of attending follow up appts and patient verbalized understanding and stated she can arrange transport to get to follow up appts. Lisa Rivas RN, BSN Inpatient Care Coordination [facility] [phone] R DESIGN ENGINEER * Cody Villarreal MD - 03/23/2023 4:51 [...] mg Oral BID cefOXitin 1 g Intravenous Peanut Blancher to OR gabapentin 900 mg Oral TID [...] studies, counseling and coordinating care: 92 minutes. R DESIGN ENGINEER documented in this encounter Miscellaneous Notes * Care Plan - Clemencia Ballesteros RN - 03/27/2023 12:04 PM CST Discharge instructions given, iv removed. Filled meds given for home use. Patient will take taxi home arranged through . R DESIGN ENGINEER * Plan of Care - Danielle Jimenez [...] states she needs assistance with transportation home. R DESIGN ENGINEER * Plan of Care - Danielle Jimenez [...] Last PVR 180 ml. Discharge plan pending. R DESIGN ENGINEER * Care Plan - Kushal Hickman RN - 03/25/2023 11:19 PM CST Time of Care: [id number] Orientation: A/O x 4 VS: BP 100/41 [...] @ 75ml/hr Diet: Full Liquids Discharge: TBD R DESIGN ENGINEER * Plan of Care - Serenity Morataya [...] cares. Will continue to provide supportive care. R DESIGN ENGINEER * Plan of Care - Danielle Jimenez [...] with PRN IV dilaudid. Discharge plan pending. R DESIGN ENGINEER * Plan of Care - Nevin Rizvi [...] removed. Tachycardic, provider ordered EKG, done today. R DESIGN ENGINEER * Plan of Care - Abdirizak Mullins [...] 75. NPO with ice chips. Plan TBD. R DESIGN ENGINEER * Op Note - Cody Villarreal MD - 03/23/2023 6:58 PM CST General Surgery Operative Note Pre-operative diagnosis: SBO Post-operative diagnosis: same Procedure: Diagnostic laparoscopy, converted to open laparostomy, extensive lysis of adhesions, removal of small bowel phytobezoar through small bowel enterotomy, repair of small bowel enterotomy, revision of ileostomy fascial exit, peritoneal lavage Surgeon: Cody Villarreal MD Metal Hanger(s): Daisy Pedraza PA-C The Physician Metal Hanger was medically necessary for their expertise in [...] end of the case. Cody Villarreal MD R DESIGN ENGINEER * Plan of Care - Nevin Rizvi [...] to pre-op, pt transferred down @ 1630. R DESIGN ENGINEER * Plan of Care - Malinda Graves [...] Plan TBD, colorectal and general surgery consulted. R DESIGN ENGINEER * Provider Notification - Malinda Graves RN - 03/23/2023 4:53 AM FIBER DESIGN ENGINEER 0453: Provider notified that pt have increase abd pain. Receiving IV dilaudid. Due to frequency unable to give dose at this time. Pt c/o gas pain. NPO. Orders? R DESIGN ENGINEER * Plan of Care - Daksha Mejia RN - 03/22/2023 10:06 PM CST Goal Outcome Evaluation: Vital signs stable. Bowel sounds absent, no flatus, no stool in ostomy appliance. Denies nausea, iv infusing.Npo. Pain controlled with iv dilaudid. Colorectal surgery consult in am. Care plan reviewed with pt. R DESIGN ENGINEER * Pharmacy-Admission Medication History - Souleymane Naylor - 03/22/2023 4:54 PM FIBER DESIGN ENGINEER Retail Stock Clerk Admission Medication History Admission medication history is complete. The information provided in this note is only as accurateas the sources available at the time of the update. Information Source(s): Patient and CareEverywhere/SureScripts via in-person Pertinent Information: None Changes made to ROCK CUTTER medication list: Added: All Deleted: None Changed: None Medication Affordability:No Allergies reviewed with patient and updates made in EHR: yes Medication History Completed By: Souleymane Naylor 03/22/2023 4:54 PM Prior to Admission medications Medication Sig Last Dose Taking? Auth Provider Anodize Machine Operator End Date acetaminophen (TYLENOL) 500 MG tablet [...] at Noon Yes Unknown, Entered By History R DESIGN ENGINEER Associated attestation - Azeem Tomlin RPH - 03/22/2023 6:34 PM FIBER DESIGN ENGINEER Although I was not present for the interview, nor did I personally see the patient, to my knowledgethe undergraduate intern has compiled the ROCK CUTTER medication list to the best of their [...] AND PLATELET MORPHOLOGY Routine 03/27/2023 6:31 AM FIBER DESIGN ENGINEER CBC WITH PLATELETS AND DIFFERENTIAL Routine 03/27/2023 6:31 AM FIBER DESIGN ENGINEER CBC WITH PLATELETS & DIFFERENTIAL Routine 03/27/2023 6:31 AM FIBER DESIGN ENGINEER MAGNESIUM Routine 03/27/2023 6:31 AM FIBER DESIGN ENGINEER BASIC METABOLIC PANEL Routine 03/27/2023 6:31 AM FIBER DESIGN ENGINEER CBC WITH PLATELETS AND DIFFERENTIAL Routine 03/26/2023 6:54 AM FIBER DESIGN ENGINEER CBC WITH PLATELETS & DIFFERENTIAL Routine 03/26/2023 6:54 AM FIBER DESIGN ENGINEER MAGNESIUM Routine 03/26/2023 6:54 AM FIBER DESIGN ENGINEER BASIC METABOLIC PANEL Routine 03/26/2023 6:54 AM FIBER DESIGN ENGINEER GLUCOSE BY METER Routine 03/25/2023 4:56 PM FIBER DESIGN ENGINEER US RENAL COMPLETE NON-VASCULAR Routine 03/25/2023 11:14 AM FIBER DESIGN ENGINEER CBC WITH PLATELETS AND DIFFERENTIAL Routine 03/25/2023 6:54 AM FIBER DESIGN ENGINEER CBC WITH PLATELETS & DIFFERENTIAL Routine 03/25/2023 6:54 AM FIBER DESIGN ENGINEER MAGNESIUM Routine 03/25/2023 6:54 AM FIBER DESIGN ENGINEER BASIC METABOLIC PANEL Routine 03/25/2023 6:54 AM FIBER DESIGN ENGINEER EKG 12-LEAD, TRACING ONLY Routine 03/24/2023 3:35 PM FIBER DESIGN ENGINEER CBC WITH PLATELETS AND DIFFERENTIAL Routine 03/24/2023 7:04 AM FIBER DESIGN ENGINEER CBC WITH PLATELETS & DIFFERENTIAL Routine 03/24/2023 7:04 AM FIBER DESIGN ENGINEER PHOSPHORUS Routine 03/24/2023 7:04 AM FIBER DESIGN ENGINEER MAGNESIUM Routine 03/24/2023 7:04 AM FIBER DESIGN ENGINEER HEPATIC FUNCTION PANEL Routine 7:04 AM FIBER DESIGN ENGINEER BASIC METABOLIC PANEL Routine 03/24/2023 7:04 AM FIBER DESIGN ENGINEER XR ABDOMEN PORT 1 VIEW Routine 12:29 AM FIBER DESIGN ENGINEER LAPAROSCOPY, DIAGNOSTIC, BY GENERAL SURGERY 03/23/2023 6:19 PM FIBER DESIGN ENGINEER SBO (small bowel obstruction) (H) POTASSIUM Routine 03/23/2023 6:19 AM FIBER DESIGN ENGINEER MAGNESIUM Routine 03/23/2023 6:19 AM FIBER DESIGN ENGINEER COMPREHENSIVE METABOLIC PANEL Routine 03/23/2023 6:19 AM FIBER DESIGN ENGINEER CBC WITH PLATELETS Routine 03/23/2023 6: 19 AM FIBER DESIGN ENGINEER LACTIC ACID WHOLE BLOOD STAT 03/22/2023 5:05 PM FIBER DESIGN ENGINEER BASIC METABOLIC PANEL STAT 03/22/2023 5:05 PM FIBER DESIGN ENGINEER CBC WITH PLATELETS STAT 03/22/2023 5: 05 PM FIBER DESIGN ENGINEER documented in this encounter Results * (ABNORMAL) RBC and Platelet Morphology (03/27/2023 6:31 AM FIBER DESIGN ENGINEER) Platelet Assessment Platelets Clumped(A) Automated Count Confirmed. Platelet morphology is normal. 03/27/2023 7:27 AM FIBER DESIGN ENGINEER [facility] Acanthocytes 03/27/2023 7:27 AM FIBER DESIGN ENGINEER [facility] Merrill Rods 03/27/2023 7:27 AM FIBER DESIGN ENGINEER [facility] Basophilic Stippling 03/27/2023 7:27 AM FIBER DESIGN ENGINEER [facility] Bite Cells 03/27/2023 7:27 AM FIBER DESIGN ENGINEER [facility] Blister Cells 03/27/2023 7:27 AM FIBER DESIGN ENGINEER [facility] Mercer Cells 03/27/2023 7:27 AM FIBER DESIGN ENGINEER [facility] Elliptocytes 03/27/2023 7:27 AM FIBER DESIGN ENGINEER [facility] Hgb C Crystals 03/27/2023 7:27 AM FIBER DESIGN ENGINEER [facility] [place] Bodies 03/27/2023 7:27 AM FIBER DESIGN ENGINEER [facility] Hypersegmented Neutrophils 03/27/2023 7:27 AM FIBER DESIGN ENGINEER [facility] Polychromasia 03/27/2023 7:27 AM FIBER DESIGN ENGINEER [facility] RBC agglutination 023 7:27 AM FIBER DESIGN ENGINEER [facility] RBC Fragments 03/27/2023 7:27 AM FIBER DESIGN ENGINEER [facility] Reactive Lymphocytes 03/27/2023 7:27 AM FIBER DESIGN ENGINEER [facility] Rouleaux 03/27/2023 7:27 AM FIBER DESIGN ENGINEER [facility] Sickle Cells 03/27/2023 7:27 AM FIBER DESIGN ENGINEER [facility] Smudge Cells 03/27/2023 7:27 AM FIBER DESIGN ENGINEER [facility] Spherocytes 03/27/2023 7:27 AM FIBER DESIGN ENGINEER [facility] Stomatocytes 03/27/2023 7:27 AM FIBER DESIGN ENGINEER [facility] Target Cells 03/27/2023 7:27 AM FIBER DESIGN ENGINEER [facility] Teardrop Cells 03/27/2023 7:27 AM FIBER DESIGN ENGINEER [facility] Toxic Neutrophils 023 7:27 AM FIBER DESIGN ENGINEER [facility] RBC Morphology Confirmed RBC Indices 03/27/2023 7:27 AM FIBER DESIGN ENGINEER [facility] Blood STRUCTURE OF RIGHT UPPER LIMB / Unknown Venipuncture / Unknown 03/27/2023 6:31 AM FIBER DESIGN ENGINEER 03/27/2023 6:39 AM FIBER DESIGN ENGINEER Bernice Stearns MD LAB - BLOOD ORDER MILE [facility] [address] (1st floor, no room number) [place] [address], [facility] [phone] * (ABNORMAL) CBC with platelets and differential (03/27/2023 6:31 AM FIBER DESIGN ENGINEER) WBC Count 6.9 4.0 - 11.0 10e3/uL 03/27/2023 7:29 AM FIBER DESIGN ENGINEER [facility] RBC Count 2.95(L) 3.80 - 5.20 10e6/uL 03/27/2023 7:29 AM FIBER DESIGN ENGINEER [facility] Hemoglobin 9.2(L) 11.7 - 15.7 g/dL 03/27/2023 7:29 AM FIBER DESIGN ENGINEER [facility] Hematocrit 29.6(L) 35.0 - 47.0 % 03/27/2023 7:29 AM FIBER DESIGN ENGINEER [facility] MCV 100 78 - 100 fL 03/27/2023 7:29 AM FIBER DESIGN ENGINEER [facility] MCH 31.2 26.5 - 33.0 pg 03/27/2023 7:29 AM FIBER DESIGN ENGINEER [facility] MCHC 31.1(L) 31.5 - 36.5 g/dL 03/27/2023 7:29 AM FIBER DESIGN ENGINEER [facility] RDW 13.9 10.0 - 15.0 % 03/27/2023 7:29 AM FIBER DESIGN ENGINEER [facility] Platelet Count 03/27/2023 7:29 AM FIBER DESIGN ENGINEER [facility] Comment:Platelets Clumped-Pl atelet Count Not Available % Neutrophils 62 % 03/27/2023 7:29 AM FIBER DESIGN ENGINEER [facility] % Lymphocytes 21 % 03/27/2023 7:29 AM FIBER DESIGN ENGINEER [facility] % Monocytes 14 % 03/27/2023 7:29 AM FIBER DESIGN ENGINEER [facility] % Eosinophils 1 % 03/27/2023 7:29 AM FIBER DESIGN ENGINEER [facility] % Basophils 1 % 03/27/2023 7:29 AM FIBER DESIGN ENGINEER [facility] % Immature Granulocytes 1 % 03/27/2023 7:29 AM FIBER DESIGN ENGINEER [facility] NRBCs per 100 WBC 0 <1 /100 023 7:29 AM FIBER DESIGN ENGINEER [facility] Absolute Neutrophils 4.4 1.6 - 8.3 10e3/uL 03/27/2023 7:29 AM FIBER DESIGN ENGINEER [facility] Absolute Lymphocytes 1.4 0.8 - 5.3 10e3/uL 03/27/2023 7:29 AM FIBER DESIGN ENGINEER [facility] Absolute Monocytes 0.9 0.0 - 1.3 10e3/uL 03/27/2023 7:29 AM FIBER DESIGN ENGINEER [facility] Absolute Eosinophils 0.0 0.0 - 0.7 10e3/uL 03/27/2023 7:29 AM FIBER DESIGN ENGINEER [facility] Absolute Basophils 0.0 0.0 - 0.2 10e3/uL 03/27/2023 7:29 AM FIBER DESIGN ENGINEER [facility] Absolute Immature Granulocytes 0.1 <=0.4 10e3/uL 03/27/2023 7:29 AM FIBER DESIGN ENGINEER [facility] Absolute NRBCs 0.0 10e3/uL 03/27/2023 7:29 AM FIBER DESIGN ENGINEER [facility] Blood STRUCTURE OF RIGHT UPPER LIMB / Unknown Venipuncture / Unknown 03/27/2023 6:31 AM FIBER DESIGN ENGINEER 03/27/2023 6:39 AM FIBER DESIGN ENGINEER Bernice Stearns MD LAB - BLOOD ORDER [facility] [address] Lab (1st floor, no room number) [place] [address], [facility] [phone] * (ABNORMAL) Basic metabolic panel (03/27/2023 6:31 AM FIBER DESIGN ENGINEER) Sodium 134(L) 135 - 145 mmol/L 03/27/2023 6:59 AM FIBER DESIGN ENGINEER [facility] LABORAT[facility] Comment:Reference intervals for this test were updated on 01/24/2023 to more accurately reflect our healthy population. There may be differences in the flagging of prior results with similar values performed with this method. Interpretation of those prior results can be made in the context of the updated reference intervals. Potassium 4.1 3.4 - 5.3 mmol/L 03/27/2023 6:59 AM [facility] Chloride 101 98 - 107 mmol/L 03/27/2023 6:59 AM [facility] Carbon Dioxide (CO2) 24 22 - 29 mmol/L 03/27/2023 6:59 AM [facility] Anion Gap 9 7 - 15 mmol/L 03/27/2023 6:59 AM [facility] Urea Nitrogen 15.5 8.0 - 23.0 mg/dL 03/27/2023 6:59 AM [facility] Creatinine 0.84 0.51 - 0.95 mg/dL 03/27/2023 6:59 AM [facility] GFR Estimate 72 >60 mL/min/1. 73m2 03/27/2023 6:59 AM [facility] Calcium 8.5(L) 8.8 - 10.2 mg/dL 03/27/2023 6:59 AM [facility] Glucose 102(H) 70 - 99 mg/dL 03/27/2023 6:59 AM FIBER DESIGN ENGINEER LABORATORY Blood STRUCTURE OF RIGHT UPPER LIMB / Unknown Venipuncture / Unknown 03/27/2023 6:31 AM FIBER DESIGN ENGINEER 03/27/2023 6:39 AM FIBER DESIGN ENGINEER Bernice Stearns MD LAB - BLOOD ORDER [facility] [address] [facility] Lab (1st floor, no room number) [place] [address] [phone] * (ABNORMAL) Magnesium (03/27/2023 6:31 AM FIBER DESIGN ENGINEER) Magnesium 1.6(L) 1.7 - 2.3 mg/dL 03/27/2023 6:59 AM FIBER DESIGN ENGINEER LABORATORY Blood STRUCTURE OF RIGHT UPPER LIMB / Unknown Venipuncture / Unknown 03/27/2023 6:31 AM FIBER DESIGN ENGINEER 03/27/2023 6:39 AM FIBER DESIGN ENGINEER Fransisco Licea MD LAB - BLOOD ORDERA BLES RH LABORATORY [facility] [address] Lab (1st floor, no room number) [place] [address], [facility] [phone] * (ABNORMAL) CBC with platelets and differential (03/26/2023 6:54 AM FIBER DESIGN ENGINEER) WBC Count 8.1 4.0 - 11.0 10e3/uL 03/26/2023 7:06 AM FIBER DESIGN ENGINEER RH LABORATORY RBC Count 2.80(L) 3.80 - 5.20 10e6/uL 03/26/2023 7:06 AM FIBER DESIGN ENGINEER [facility] LAB[facility] Hemoglobin 8.8(L) 11.7 - 15.7 g/dL 03/26/2023 7:06 AM FIBER DESIGN ENGINEER [facility] LAB[facility] Hematocrit 27.0(L) 35.0 - 47.0 % 03/26/2023 7:06 AM FIBER DESIGN ENGINEER [facility] LAB[facility] MCV 96 78 - 100 fL 03/26/2023 7:06 AM FIBER DESIGN ENGINEER [facility] LAB[facility]AT[facility] MCH 31.4 26.5 - 33.0 pg 03/26/2023 7:06 AM FIBER DESIGN ENGINEER [facility] LAB[facility]AT[facility] MCHC 32.6 31.5 - 36.5 g/dL 03/26/2023 7:06 AM FIBER DESIGN ENGINEER [facility] LAB[facility] RDW 13.6 10.0 - 15.0 % 03/26/2023 7:06 AM FIBER DESIGN ENGINEER [facility] LAB[facility] Platelet Count 257 150 - 450 10e3/uL 03/26/2023 7:06 AM FIBER DESIGN ENGINEER [facility] % Neutrophils 73 % 03/26/2023 7:06 AM FIBER DESIGN ENGINEER [facility] % Lymphocytes 14 % 03/26/2023 7:06 AM FIBER DESIGN ENGINEER [facility] % Monocytes 12 % 03/26/2023 7:06 AM FIBER DESIGN ENGINEER [facility] % Eosinophils 0 % 03/26/2023 7:06 AM FIBER DESIGN ENGINEER [facility] % Basophils 0 % 03/26/2023 7:06 AM FIBER DESIGN ENGINEER [facility] % Immature Granulocytes 1 % 03/26/2023 7:06 AM FIBER DESIGN ENGINEER [facility] LAB[facility] NRBCs per 100 WBC 0 <1 /100 023 7:06 AM FIBER DESIGN ENGINEER [facility] LAB[facility]AT[facility] Absolute Neutrophils 5.9 1.6 - 8.3 10e3/uL 03/26/2023 7:06 AM FIBER DESIGN ENGINEER [facility] LAB[facility] Absolute Lymphocytes 1.1 0.8 - 5.3 10e3/uL 03/26/2023 7:06 AM FIBER DESIGN ENGINEER [facility] Absolute Monocytes 0.9 0.0 - 1.3 10e3/uL 03/26/2023 7:06 AM FIBER DESIGN ENGINEER [facility] Absolute Eosinophils 0.0 0.0 - 0.7 10e3/uL 03/26/2023 7:06 AM FIBER DESIGN ENGINEER [facility] Absolute Basophils 0.0 0.0 - 0.2 10e3/uL 03/26/2023 7:06 AM FIBER DESIGN ENGINEER [facility] LAB[facility] Absolute Immature Granulocytes 0.1 <=0.4 10e3/uL 03/26/2023 7:06 AM FIBER DESIGN ENGINEER LABORATORY Absolute NRBCs 0.0 10e3/uL 03/26/2023 7:06 AM FIBER DESIGN ENGINEER LABORATORY Blood STRUCTURE OF RIGHT UPPER LIMB / Unknown Venipuncture / Unknown 03/26/2023 6:54 AM FIBER DESIGN ENGINEER 03/26/2023 7:02 AM FIBER DESIGN ENGINEER Bernice Stearns MD LAB - BLOOD ORDER MILE [facility] [address] Lab (1st floor, no room number) [place] [address], [facility] [phone] * Magnesium (03/26/2023 6:54 AM FIBER DESIGN ENGINEER) Magnesium 1.8 1.7 - 2.3 mg/dL 03/26/2023 7:22 AM FIBER DESIGN ENGINEER LABORATORY Blood STRUCTURE OF RIGHT UPPER LIMB / Unknown Venipuncture / Unknown 03/26/2023 6:54 AM FIBER DESIGN ENGINEER 03/26/2023 7:02 AM FIBER DESIGN ENGINEER Bernice Stearns MD LAB - BLOOD ORDER MILE [facility] [address] Lab (1st floor, no room number) [place] [address], [facility] [phone] * (ABNORMAL) Basic metabolic panel (03/26/2023 6:54 AM FIBER DESIGN ENGINEER) Sodium 135 135 - 145 mmol/L 03/26/2023 7:22 AM [facility] Comment:Reference intervals for this test were updated on 01/24/2023 to more accurately reflect our healthy population. There may be differences in the flagging of prior results with similar values performed with this method. Interpretation of those prior results can be made in the context of the updated reference intervals. Potassium 4.6 3.4 - 5.3 mmol/L 03/26/2023 7:22 AM [facility] Chloride 101 98 - 107 mmol/L 03/26/2023 7:22 AM [facility] Carbon Dioxide (CO2) 26 22 - 29 mmol/L 03/26/2023 7:22 AM [facility] Anion Gap 8 7 - 15 mmol/L 03/26/2023 7:22 AM [facility] Urea Nitrogen 21.8 8.0 - 23.0 mg/dL 03/26/2023 7:22 AM [facility] Creatinine 0.99(H) 0.51 - 0.95 mg/dL 03/26/2023 7:22 AM [facility] GFR Estimate 59(L) >60 mL/min/1. 73m2 03/26/2023 7:22 AM [facility] Calcium 8.9 8.8 - 10.2 mg/dL 03/26/2023 7:22 AM [facility] Glucose 121(H) 70 - 99 mg/dL 03/26/2023 7:22 AM [facility] Blood STRUCTURE OF RIGHT UPPER LIMB / Unknown Venipuncture / Unknown 03/26/2023 6:54 AM FIBER DESIGN ENGINEER 03/26/2023 7:[address] [facility] Bernice Stearns MD LAB - BLOOD ORDER [facility] [address] [facility] Lab (1st floor, no room number) [place] [address], [facility] [phone] * (ABNORMAL) Glucose by meter (03/25/2023 4:56 PM FIBER DESIGN ENGINEER) GLUCOSE BY METER POCT 119(H) 70 - 99 mg/dL 03/25/2023 5:04 PM FIBER DESIGN ENGINEER LABORATORY POC Blood, Capillary BLOOD SPECIMEN / Unknown 03/25/2023 4:56 PM FIBER DESIGN ENGINEER 03/25/2023 5:04 PM FIBER DESIGN ENGINEER Fransisco Licea MD LAB - [facility] POCT RH LABORATORY [facility] [address] Lab (1st floor, no room number) [place] [address], [facility] [phone] * US Renal Complete Non-Vascular (03/25/2023 11:14 AM FIBER DESIGN ENGINEER) Anatomical Region Laterality Modality Abdomen/Pelvis Ultrasound 03/25/2023 11:1 4 AM FIBER DESIGN ENGINEER Impressions 03/25/2023 3:04 PM FIBER DESIGN ENGINEER IMPRESSION: 1. ??Normal kidney ultrasound. Narrative 03/25/2023 3:04 PM FIBER DESIGN ENGINEER EXAM: US RENAL COMPLETE NON-VASCULAR LOCATION: [facility] DATE: 03/25/2023 INDICATION: BRICE post op abdominal surgery, rule out obstruction COMPARISON: None. TECHNIQUE: Routine Bilateral Renal and Bladder Ultrasound. FINDINGS: RIGHT KIDNEY: 10.2 cm. Normal without hydronephrosis or masses. LEFT KIDNEY: 11.1 cm. Normal without hydronephrosis or masses. BLADDER: Normal. Procedure Note Kirby Diamond MD - 03/25/2023 EXAM: US RENAL COMPLETE NON-VASCULAR LOCATION: [facility] DATE: 03/25/2023 INDICATION: BRICE post op abdominal surgery, rule out obstruction COMPARISON: None. TECHNIQUE: Routine Bilateral Renal and Bladder Ultrasound. FINDINGS: RIGHT KIDNEY: 10.2 cm. Normal without hydronephrosis or masses. LEFT KIDNEY: 11.1 cm. Normal without hydronephrosis or masses. BLADDER: Normal. IMPRESSION: 1. Normal kidney ultrasound. Bernice Stearns MD IMG US ORDERABLES * (ABNORMAL) CBC with platelets and differential (03/25/2023 6:54 AM FIBER DESIGN ENGINEER) WBC Count 11.0 4.0 - 11.0 10e3/uL 03/25/2023 7:25 AM FIBER DESIGN ENGINEER [facility] LAB[facility]AT[facility] RBC Count 2.90(L) 3.80 - 5.20 10e6/uL 03/25/2023 7:25 AM FIBER DESIGN ENGINEER [facility] Hemoglobin 9.1(L) 11.7 - 15.7 g/dL 03/25/2023 7:25 AM FIBER DESIGN ENGINEER [facility] Hematocrit 28.3(L) 35.0 - 47.0 % 03/25/2023 7:25 AM FIBER DESIGN ENGINEER [facility] MCV 98 78 - 100 fL 03/25/2023 7:25 AM FIBER DESIGN ENGINEER [facility] MCH 31.4 26.5 - 33.0 pg 03/25/2023 7:25 AM FIBER DESIGN ENGINEER [facility] LAB[facility] MCHC 32.2 31.5 - 36.5 g/dL 03/25/2023 7:25 AM FIBER DESIGN ENGINEER [facility] RDW 13.8 10.0 - 15.0 % 03/25/2023 7:25 AM FIBER DESIGN ENGINEER [facility] Platelet Count 220 150 - 450 10e3/uL 03/25/2023 7:25 AM FIBER DESIGN ENGINEER [facility] % Neutrophils 74 % 03/25/2023 7:25 AM FIBER DESIGN ENGINEER [facility] % Lymphocytes 11 % 03/25/2023 7:25 AM FIBER DESIGN ENGINEER [facility] % Monocytes 14 % 03/25/2023 7:25 AM FIBER DESIGN ENGINEER [facility] % Eosinophils 0 % 03/25/2023 7:25 AM FIBER DESIGN ENGINEER [facility] % Basophils 0 % 03/25/2023 7:25 AM FIBER DESIGN ENGINEER [facility] % Immature Granulocytes 1 % 03/25/2023 7:25 AM FIBER DESIGN ENGINEER [facility] NRBCs per 100 WBC 0 <1 /100 023 7:25 AM FIBER DESIGN ENGINEER [facility] Absolute Neutrophils 8.2 1.6 - 8.3 10e3/uL 03/25/2023 7:25 AM FIBER DESIGN ENGINEER [facility] Absolute Lymphocytes 1.2 0.8 - 5.3 10e3/uL 03/25/2023 7:25 AM FIBER DESIGN ENGINEER [facility] Absolute Monocytes 1.5(H) 0.0 - 1.3 10e3/uL 03/25/2023 7:25 AM FIBER DESIGN ENGINEER [facility] LAB[facility] Absolute Eosinophils 0.0 0.0 - 0.7 10e3/uL 03/25/2023 7:25 AM FIBER DESIGN ENGINEER [facility] Absolute Basophils 0.0 0.0 - 0.2 10e3/uL 03/25/2023 7:25 AM FIBER DESIGN ENGINEER [facility] Absolute Immature Granulocytes 0.1 <=0.4 10e3/uL 03/25/2023 7:25 AM FIBER DESIGN ENGINEER [facility] Absolute NRBCs 0.0 10e3/uL 03/25/2023 7:25 AM FIBER DESIGN ENGINEER LABORATORY Blood STRUCTURE OF RIGHT HAND / Unknown Venipuncture / Unknown 03/25/2023 6:54 AM FIBER DESIGN ENGINEER 03/25/2023 7:22 AM FIBER DESIGN ENGINEER Bernice Stearns MD LAB - BLOOD ORDER [facility] [address] [facility] Lab (1st floor, no room number) [place] [address], [facility] [phone] * (ABNORMAL) Basic metabolic panel (03/25/2023 6:54 AM FIBER DESIGN ENGINEER) Sodium 133(L) 135 - 145 mmol/L 03/25/2023 7:41 AM [facility] Comment:Reference intervals for this test were updated on 01/24/2023 to more accurately reflect our healthy population. There may be differences in the flagging of prior results with similar values performed with this method. Interpretation of those prior results can be made in the context of the updated reference intervals. Potassium 4.6 3.4 - 5.3 mmol/L 03/25/2023 7:41 AM [facility] Chloride 98 98 - 107 mmol/L 03/25/2023 7:41 AM [facility] Carbon Dioxide (CO2) 25 22 - 29 mmol/L 03/25/2023 7:41 AM [facility] Anion Gap 10 7 - 15 mmol/L 03/25/2023 7:41 AM [facility] Urea Nitrogen 42.9(H) 8.0 - 23.0 mg/dL 03/25/2023 7:41 AM [facility] Creatinine 1.62(H) 0.51 - 0.95 mg/dL 03/25/2023 7:41 AM [facility] GFR Estimate 33(L) >60 mL/min/1. 73m2 03/25/2023 7:41 AM [facility] Calcium 8.6(L) 8.8 - 10.2 mg/dL 03/25/2023 7:41 AM FIBER DESIGN ENGINEER [facility] Glucose 106(H) 70 - 99 mg/dL 03/25/2023 7:41 AM FIBER DESIGN ENGINEER [facility] Blood STRUCTURE OF RIGHT HAND / Unknown Venipuncture / Unknown 03/25/2023 6:54 AM FIBER DESIGN ENGINEER 03/25/2023 7:22 AM FIBER DESIGN ENGINEER Bernice Stearns MD LAB - BLOOD ORDER MILE [facility] [address] Lab (1st floor, no room number) [place] [address], [facility] [phone] * Magnesium (03/25/2023 6:54 AM FIBER DESIGN ENGINEER) Magnesium 1.8 1.7 - 2.3 mg/dL 03/25/2023 7:42 AM FIBER DESIGN ENGINEER RH LABORAT[facility] Blood STRUCTURE OF RIGHT HAND / Unknown Venipuncture / Unknown 03/25/2023 6:54 AM FIBER DESIGN ENGINEER 03/25/2023 7:22 AM FIBER DESIGN ENGINEER Bernice Stearns MD LAB - BLOOD ORDER MILE Performing Organization Address City/[facility]/ZIP Co de Phone Number [facility] [address] Lab (1st floor, no room number) [place] [address], [facility] [phone] * EKG 12-lead, tracing only (03/24/2023 3:35 PM FIBER DESIGN ENGINEER) Systolic Blood Pressure mmHg RADIOLOGY RESULTS Diastolic Blood Pressure mmHg RADIOLOGY RESULTS Ventricular Rate 102 BPM RAD IOLOGY RESULTS Atrial Rate 102 BPM RADIOLOG Y RESULTS MI Interval 178 ms RADIOLOG Y RESULTS QRS Duration 88 ms RADIOLO GY RESULTS QT 354 ms RADIOLOGY RESULTS QTc 461 ms RADIOLOGY RESULTS P [place] 72 degrees RADIOLOGY RESULTS R AXIS 75 degrees RADIOLOGY RESULTS T [place] 74 degrees RADIOLOGY RESULTS Interpretation ECG Sinus tachycardia Possible Left atrial enlargement Cannot rule out Anterior infarct , age undetermined Abnormal ECG No previous ECGs available IVCD in inferior leads Confirmed by MD TERRI, MERRILL ([id number]), communications editor Tremaine Brown ([id number]) on 03/27/2023 11:15:18 AM RADIOLOGY RESULTS 03/24/2023 3:35 PM FIBER DESIGN ENGINEER 03/27/2023 11:15 AM FIBER DESIGN ENGINEER Bernice Stearns MD ECG ORDERABLES RADIOLOGY RESULTS * (ABNORMAL) CBC with platelets and differential (03/24/2023 7:04 AM FIBER DESIGN ENGINEER) WBC Count 14.8(H) 4.0 - 11.0 10e3/uL 03/24/2023 7:25 AM FIBER DESIGN ENGINEER [facility] LAB[facility]AT[facility] RBC Count 3.40(L) 3.80 - 5.20 10e6/uL 03/24/2023 7:25 AM FIBER DESIGN ENGINEER [facility] Hemoglobin 10.8(L) 11.7 - 15.7 g/dL 03/24/2023 7:25 AM FIBER DESIGN ENGINEER [facility] Hematocrit 33.7(L) 35.0 - 47.0 % 03/24/2023 7:25 AM FIBER DESIGN ENGINEER [facility] LAB[facility]AT[facility] MCV 99 78 - 100 fL 03/24/2023 7:25 AM FIBER DESIGN ENGINEER RH LAB[facility]AT[facility] MCH 31.8 26.5 - 33.0 pg 03/24/2023 7:25 AM FIBER DESIGN ENGINEER RH LABORAT[facility] MCHC 32.0 31.5 - 36.5 g/dL 03/24/2023 7:25 AM FIBER DESIGN ENGINEER [facility] LAB[facility] RDW 13.6 10.0 - 15.0 % 03/24/2023 7:25 AM FIBER DESIGN ENGINEER [facility] Platelet Count 210 150 - 450 10e3/uL 03/24/2023 7:25 AM FIBER DESIGN ENGINEER [facility] % Neutrophils 85 % 03/24/2023 7:25 AM FIBER DESIGN ENGINEER [facility] % Lymphocytes 5 % 03/24/2023 7:25 AM FIBER DESIGN ENGINEER [facility] % Monocytes 10 % 03/24/2023 7:25 AM FIBER DESIGN ENGINEER [facility] % Eosinophils 0 % 03/24/2023 7:25 AM FIBER DESIGN ENGINEER [facility] % Basophils 0 % 03/24/2023 7:25 AM FIBER DESIGN ENGINEER [facility] % Immature Granulocytes 0 % 03/24/2023 7:25 AM FIBER DESIGN ENGINEER [facility] LAB[facility] NRBCs per 100 WBC 0 <1 /100 11/24/2 023 7:25 AM FIBER DESIGN ENGINEER [facility] LAB[facility]AT[facility] Absolute Neutrophils 12.6(H) 1.6 - 8.3 10e3/uL 03/24/2023 7:25 AM FIBER DESIGN ENGINEER [facility] LAB[facility]AT[facility] Absolute Lymphocytes 0.7(L) 0.8 - 5.3 10e3/uL 03/24/2023 7:25 AM FIBER DESIGN ENGINEER [facility] LAB[facility] Absolute Monocytes 1.5(H) 0.0 - 1.3 10e3/uL 03/24/2023 7:25 AM FIBER DESIGN ENGINEER [facility] LAB[facility] Absolute Eosinophils 0.0 0.0 - 0.7 10e3/uL 03/24/2023 7:25 AM FIBER DESIGN ENGINEER [facility] Absolute Basophils 0.0 0.0 - 0.2 10e3/uL 03/24/2023 7:25 AM FIBER DESIGN ENGINEER [facility] Absolute Immature Granulocytes 0.1 <=0.4 10e3/uL 03/24/2023 7:25 AM FIBER DESIGN ENGINEER [facility] LAB[facility] Absolute NRBCs 0.0 10e3/uL 03/24/2023 7:25 AM FIBER DESIGN ENGINEER [facility] LAB[facility] Blood BLOOD SPECIMEN / Unknown Venipuncture / Unknown 03/24/2023 7:04 AM FIBER DESIGN ENGINEER 03/24/2023 7:22 AM FIBER DESIGN ENGINEER Cody Villarreal MD LAB - BLOOD ORDERABL ES [facility] [address] Lab (1st floor, no room number) [place] [address], [facility] [phone] * (ABNORMAL) Phosphorus (03/24/2023 7:04 AM FIBER DESIGN ENGINEER) Phosphorus 4.7(H) 2.5 - 4.5 mg/dL 03/24/2023 7:44 AM FIBER DESIGN ENGINEER [facility] LABORAT[facility] Blood BLOOD SPECIMEN / Unknown Venipuncture / Unknown 03/24/2023 7:04 AM FIBER DESIGN ENGINEER 03/24/2023 7:22 AM FIBER DESIGN ENGINEER Cody Villarreal MD LAB - BLOOD ORDERABL ES [facility] [address] Lab (1st floor, no room number) [place] [address] [phone] * (ABNORMAL) Hepatic function panel (03/24/2023 7:04 AM FIBER DESIGN ENGINEER) Protein Total 6.1(L) 6.4 - 8.3 g/dL 03/24/2023 7:44 AM FIBER DESIGN ENGINEER [facility] LAB[facility] Albumin 3.2(L) 3.5 - 5.2 g/dL 03/24/2023 7:44 AM FIBER DESIGN ENGINEER [facility] Bilirubin Total 0.8 <=1.2 mg/dL 03/24/2023 7:44 AM FIBER DESIGN ENGINEER [facility] LAB[facility] Alkaline Phosphatase 113 40 - 150 U/L 03/24/2023 7:44 AM FIBER DESIGN ENGINEER [facility] Comment:Reference intervals for this test were updated on 03/14/2023 to more accurately reflect our healthy population. There may be differences in the flagging of prior results with similar values performed with this method. Interpretation of those prior results can be made in the context of the updated reference intervals. AST 64(H) 0 - 45 U/L 03/24/2023 7:44 AM FIBER DESIGN ENGINEER [facility] Comment:Reference intervals for this test were updated on 10/10/2022 to more accurately reflect our healthy population. There may be differences in the flagging of prior results with similar values performed with this method. Interpretation of those prior results can be made in the context of the updated reference intervals. ALT 58(H) 0 - 50 U/L 03/24/2023 7:44 AM FIBER DESIGN ENGINEER [facility] Comment:Reference intervals for this test were updated on 10/10/2022 to more accurately reflect our healthy population. There may be differences in the flagging of prior results with similar values performed with this method. Interpretation of those prior results can be made in the context of the updated reference intervals. Bilirubin Direct 0.35(H) 0.00 - 0.30 mg/dL 03/24/2023 7:44 AM FIBER DESIGN ENGINEER [facility] Blood BLOOD SPECIMEN / Unknown Venipuncture / Unknown 03/24/2023 7:04 AM FIBER DESIGN ENGINEER 03/24/2023 7:22 AM FIBER DESIGN ENGINEER Cody Villarreal MD LAB - BLOOD ORDERABL ES LABORATORY [facility] [address] Lab (1st floor, no room number) [place] [address], [facility] [phone] * (ABNORMAL) Basic metabolic panel (03/24/2023 7:04 AM FIBER DESIGN ENGINEER) Sodium 136 135 - 145 mmol/L 03/24/2023 7:44 AM FIBER DESIGN ENGINEER LABORATORY Comment:Reference intervals for this test were updated on 01/24/2023 to more accurately reflect our healthy population. There may be differences in the flagging of prior results with similar values performed with this method. Interpretation of those prior results can be made in the context of the updated reference intervals. Potassium 4.5 3.4 - 5.3 mmol/L 03/24/2023 7:44 AM [facility] Chloride 101 98 - 107 mmol/L 03/24/2023 7:44 AM [facility] Carbon Dioxide (CO2) 24 22 - 29 mmol/L 03/24/2023 7:44 AM [facility] Anion Gap 11 7 - 15 mmol/L 03/24/2023 7:44 AM [facility] Urea Nitrogen 26.1(H) 8.0 - 23.0 mg/dL 03/24/2023 7:44 AM [facility] Creatinine 1.06(H) 0.51 - 0.95 mg/dL 03/24/2023 7:44 AM [facility] GFR Estimate 54(L) >60 mL/min/1. 73m2 03/24/2023 7:44 AM [facility] Calcium 8.3(L) 8.8 - 10.2 mg/dL 03/24/2023 7:44 AM [facility] Glucose 89 70 - 99 mg/dL 03/24/2023 7:44 AM [facility] Blood BLOOD SPECIMEN / Unknown Venipuncture / Unknown 03/24/2023 7:04 AM FIBER DESIGN ENGINEER 03/24/2023 7:22 AM FIBER DESIGN ENGINEER Cody Villarreal MD LAB - BLOOD ORDERABL ES RH LABORATORY [facility] [address] Lab (1st floor, no room number) [place] [address], [facility] [phone] * Magnesium (03/24/2023 7:04 AM FIBER DESIGN ENGINEER) Magnesium 1.7 1.7 - 2.3 mg/dL 03/24/2023 7:46 AM FIBER DESIGN ENGINEER LABORATORY Blood BLOOD SPECIMEN / Unknown Venipuncture / Unknown 03/24/2023 7:04 AM FIBER DESIGN ENGINEER 03/24/2023 7:22 AM FIBER DESIGN ENGINEER Cody Villarreal MD LAB - BLOOD ORDERABL ES LABORATORY [facility] [address] [facility] Lab (1st floor, no room number) [place] [address], [facility] [phone] * XR Abdomen Port 1 View (03/24/2023 12:29 AM FIBER DESIGN ENGINEER) Anatomical Region Laterality Modality Abdomen/Pelvis Digital Radiogra phy 03/24/2023 12:2 9 AM FIBER DESIGN ENGINEER Impressions 03/24/2023 12:31 AM FIBER DESIGN ENGINEER IMPRESSION: NG tube side-port is at the EG junction and should be advanced approximately 8 cm. Prior postoperative changes. Normal bowel gas pattern. Significant thoracolumbar curvature convex to the left. Narrative 03/24/2023 12:31 AM FIBER DESIGN ENGINEER EXAM: XR ABDOMEN PORT 1 VIEW LOCATION: [facility] DATE: 03/24/2023 INDICATION: confirm NG placement for decompression COMPARISON: None. Procedure Note Davy Arnold MD - 03/24/2023 EXAM: XR ABDOMEN PORT 1 VIEW LOCATION: [facility] DATE: 03/24/2023 INDICATION: confirm NG placement for decompression COMPARISON: None. IMPRESSION: NG tube side-port is at the EG junction and should be advancedapproximately 8 cm. Prior postoperative changes. Normal bowel gas pattern.Significant thoracolumbar curvature convex to the left. Cody Villarreal MD IMG DIAGNOSTIC IMAGI NG ORDERABLES * Magnesium (03/23/2023 6:19 AM FIBER DESIGN ENGINEER) Magnesium 1.8 1.7 - 2.3 mg/dL 03/23/2023 7:44 AM FIBER DESIGN ENGINEER [facility] Blood STRUCTURE OF LEFT UPPER LIMB / Unknown Venipuncture / Unknown 03/23/2023 6:19 AM F[employer]ER DESIGN ENGINEER 03/23/2023 6:34 AM FIBER DESIGN ENGINEER Bernice Stearns MD LAB - BLOOD ORDER [facility] [address] Lab (1st floor, no room number) [place] [address], [place] [phone] * Potassium (03/23/2023 6:19 AM FIBER DESIGN ENGINEER) Pathologist [facility] Potassium 4.3 3.4 - 5.3 mmol/L 03/23/2023 7:32 AM F[employer]ER DESIGN ENGINEER [facility] Blood STRUCTURE OF LEFT UPPER LIMB / Unknown Venipuncture / Unknown 03/23/2023 6:19 AM FIBER DESIGN ENGINEER 03/23/2023 6:34 AM FIBER DESIGN ENGINEER Bernice Stearns MD LAB - BLOOD ORDER [facility] [address] Lab (1st floor, no room number) [place] [address], [facility] [phone] * (ABNORMAL) CBC with platelets (03/23/2023 6:19 AM FIBER DESIGN ENGINEER) WBC Count 9.4 4.0 - 11.0 10e3/uL 03/23/2023 6:37 AM F[employer] DESIGN ENGINEER [facility] RBC Count 3.76(L) 3.80 - 5.20 10e6/uL 03/23/2023 6:37 AM F[employer] DESIGN ENGINEER [facility] Hemoglobin 11.8 11.7 - 15.7 g/dL 03/23/2023 6:37 AM F[employer] DESIGN ENGINEER [facility] Hematocrit 36.6 35.0 - 47.0 % 03/23/2023 6:37 AM F[employer]ER DESIGN ENGINEER [facility] MCV 97 78 - 100 fL 03/23/2023 6:37 AM F[employer]ER DESIGN ENGINEER [facility] MCH 31.4 26.5 - 33.0 pg 03/23/2023 6:37 AM FIBER DESIGN ENGINEER LABORATORY MCHC 32.2 31.5 - 36.5 g/dL 03/23/2023 6:37 AM [facility] RDW 13.6 10.0 - 15.0 % 03/23/2023 6:37 AM [facility] Platelet Count 256 150 - 450 10e3/uL 03/23/2023 6:37 AM [facility] Blood STRUCTURE OF LEFT UPPER LIMB / Unknown Venipuncture / Unknown 03/23/2023 6:19 AM FIBER DESIGN ENGINEER 03/23/2023 6:34 AM FIBER DESIGN ENGINEER Radha Blood MD LAB - BLOOD ORDERABL ES LABORATORY [facility] [address] [facility] Lab (1st floor, no room number) [place] [address], [facility] [phone] * (ABNORMAL) Comprehensive metabolic panel (03/23/2023 6:19 AM FIBER DESIGN ENGINEER) Sodium 137 135 - 145 mmol/L 03/23/2023 6:55 AM [facility] Comment:Reference intervals for this test were updated on 01/24/2023 to more accurately reflect our healthy population. There may be differences in the flagging of prior results with similar values performed with this method. Interpretation of those prior results can be made in the context of the updated reference intervals. Potassium 4.3 3.4 - 5.3 mmol/L 03/23/2023 6:55 AM [facility] Carbon Dioxide (CO2) 24 22 - 29 mmol/L 03/23/2023 6:55 AM [facility] Anion Gap 10 7 - 15 mmol/L 03/23/2023 6:55 AM [facility] Urea Nitrogen 20.3 8.0 - 23.0 mg/dL 03/23/2023 6:55 AM [facility] Creatinine 0.91 0.51 - 0.95 mg/dL 03/23/2023 6:55 AM [facility] GFR Estimate 65 >60 mL/min/1. 73m2 03/23/2023 6:55 AM [facility] Calcium 8.4(L) 8.8 - 10.2 mg/dL 03/23/2023 6:55 AM FIBER DESIGN ENGINEER [facility] Chloride 103 98 - 107 mmol/L 03/23/2023 6:55 AM FIBER DESIGN ENGINEER [facility] Glucose 102(H) 70 - 99 mg/dL 03/23/2023 6:55 AM F[employer]ER DESIGN ENGINE[facility] Alkaline Phosphatase 140 40 - 150 U/L 03/23/2023 6:55 AM F[employer]ER DESIGN ENGINE[facility] Comment:Reference intervals for this test were updated on 03/14/2023 to more accurately reflect our healthy population. There may be differences in the flagging of prior results with similar values performed with this method. Interpretation of those prior results can be made in the context of the updated reference intervals. AST 114(H) 0 - 45 U/L 03/23/2023 6:55 AM FIBER DESIGN ENGINEER [facility] Comment:Reference intervals for this test were updated on 10/10/2022 to more accurately reflect our healthy population. There may be differences in the flagging of prior results with similar values performed with this method. Interpretation of those prior results can be made in the context of the updated reference intervals. ALT 95(H) 0 - 50 U/L 03/23/2023 6:55 AM F[employer]ER DESIGN ENGINE[facility] Comment:Reference intervals for this test were updated on 10/10/2022 to more accurately reflect our healthy population. There may be differences in the flagging of prior results with similar values performed with this method. Interpretation of those prior results can be made in the context of the updated reference intervals. Protein Total 6.7 6.4 - 8.3 g/dL 03/23/2023 6:55 AM F[employer]ER DESIGN ENGINE[facility] Albumin 3.7 3.5 - 5.2 g/dL 03/23/2023 6:55 AM F[employer]ER DESIGN ENGINE[facility] Bilirubin Total 0.7 <=1.2 mg/dL 03/23/2023 6:55 AM FIBER DESIGN ENGINEER [facility] Blood STRUCTURE OF LEFT UPPER LIMB / Unknown Venipuncture / Unknown 03/23/2023 6:19 AM FIBER DESIGN ENGINEER 03/23/2023 6:34 AM FIBER DESIGN ENGINEER Radha Blood MD LAB - BLOOD ORDERABL ES [facility] LABORATORY [facility] [address] Lab (1st floor, no room number) [place] [address], [facility] [phone] * Lactic acid whole blood (03/22/2023 5:05 PM FIBER DESIGN ENGINEER) [facility] Lactic Acid 0.9 0.7 - 2.0 mmol/L 03/22/2023 5:22 PM FIBER DESIGN ENGINEER [facility] Blood STRUCTURE OF RIGHT UPPER LIMB / Unknown Venipuncture / Unknown 03/22/2023 5:05 PM FIBER DESIGN ENGINEER 03/22/2023 5:11 PM FIBER DESIGN ENGINEER Radha Blood MD LAB - BLOOD ORDERABL ES [facility]ATORY [facility] [address] Lab (1st floor, no room number) [place] [address], [facility] [phone] * (ABNORMAL) CBC with platelets (03/22/2023 5:05 PM FIBER DESIGN ENGINEER) [facility] WBC Count 8.1 4.0 - 11.0 10e3/uL 03/22/2023 5:15 PM FIBER DESIGN ENGINEER [facility] RBC Count 3.57(L) 3.80 - 5.20 10e6/uL 03/22/2023 5:15 PM FIBER DESIGN ENGINEER [facility] Hemoglobin 11.2(L) 11.7 - 15.7 g/dL 03/22/2023 5:15 PM FIBER DESIGN ENGINEER [facility] Hematocrit 34.5(L) 35.0 - 47.0 % 03/22/2023 5:15 PM FIBER DESIGN ENGINEER [facility] MCV 97 78 - 100 fL 03/22/2023 5:15 PM FIBER DESIGN ENGINEER [facility] MCH 31.4 26.5 - 33.0 pg 03/22/2023 5:15 PM FIBER DESIGN ENGINEER [facility] MCHC 32.5 31.5 - 36.5 g/dL 03/22/2023 5:15 PM FIBER DESIGN ENGINE[facility] RDW 13.4 10.0 - 15.0 % 03/22/2023 5:15 PM FIBER DESIGN ENGINE[facility] Platelet Count 231 150 - 450 10e3/uL 03/22/2023 5:15 PM FIBER DESIGN ENGINE[facility] Blood STRUCTURE OF RIGHT UPPER LIMB / Unknown Venipuncture / Unknown 03/22/2023 5:05 PM FIBER DESIGN ENGINEER 03/22/2023 5:11 PM FIBER DESIGN ENGINEER Radha Blood MD LAB - BLOOD ORDERABL ES [facility] LABORATORY [facility] [address] Lab (1st floor, no room number) [place] [address], [facility] [phone] * (ABNORMAL) Basic metabolic panel (03/22/2023 5:05 PM FIBER DESIGN ENGINEER) [facility] Sodium 134(L) 135 - 145 mmol/L 03/22/2023 5:41 PM [facility] Comment:Reference intervals for this test were updated on 01/24/2023 to more accurately reflect our healthy population. There may be differences in the flagging of prior results with similar values performed with this method. Interpretation of those prior results can be made in the context of the updated reference intervals. Potassium 4.4 3.4 - 5.3 mmol/L 03/22/2023 5:41 PM [facility] Chloride 101 98 - 107 mmol/L 03/22/2023 5:41 PM [facility] Carbon Dioxide (CO2) 28 22 - 29 mmol/L 03/22/2023 5:41 PM [facility] Anion Gap 5(L) 7 - 15 mmol/L 03/22/2023 5:41 PM [facility] Urea Nitrogen 21.3 8.0 - 23.0 mg/dL 03/22/2023 5:41 PM [facility] Creatinine 0.93 0.51 - 0.95 mg/dL 03/22/2023 5:41 PM [facility] GFR Estimate 63 >60 mL/min/1. 73m2 03/22/2023 5:41 PM [facility] Calcium 8.3(L) 8.8 - 10.2 mg/dL 03/22/2023 5:41 PM [facility] Glucose 106(H) 70 - 99 mg/dL 03/22/2023 5:41 PM [facility] Blood STRUCTURE OF RIGHT UPPER LIMB / Unknown Venipuncture / Unknown 03/22/2023 5:05 PM FIBER DESIGN ENGINEER 03/22/2023 5:11 PM FIBER DESIGN ENGINEER Radha Blood MD LAB - BLOOD ORDERABL ES [facility] [address] Lab (1st floor, no room number) [place] [address], [facility] [phone] documented in this encounter Visit Diagnoses Diagnosis [...] Mon03/24/23 at 0419 $Given 03/25/2023 1:45 AM FIBER DESIGN ENGINEER 1 spray $Given 03/24/2023 7:04 PM FIBER DESIGN ENGINEER 1 spray $Given 03/24/2023 11:49 AM FIBER DESIGN ENGINEER 1 spray bupivacaine (MARCAINE) 0.25% preservative free injection PRN, Starting on Heidi 03/23/23 at 2040, Intra-procedure $Given 03/23/2023 8:40 PM FIBER DESIGN ENGINEER 30 mLs Operative Site/Surgi tio Site buPROPion (WELLBUTRIN) tablet 100 mg 100 mg, Oral, 2 TIMES DAILY, First dose on Mon03/22/23 at 2000 $Given 03/27/2023 8:26 AM FIBER DESIGN ENGINEER 100 mg $Given 03/26/2023 7:41 PM FIBER DESIGN ENGINEER 100 mg $Given 03/26/2023 8:09 AM FIBER DESIGN ENGINEER 100 mg enoxaparin ANTICOAGULANT (LOVENOX) injection 40 mg 40 mg, Subcutaneous, EVERY 24 HOURS, First dose on 03/25/23 at 1200 $Given 03/26/2023 12:05 PM FIBER DESIGN ENGINEER 40 mg $Given 03/25/2023 11:58 AM FIBER DESIGN ENGINEER 40 mg gabapentin (NEURONTIN) capsule 900 mg 900 mg, Oral, 3 TIMES DAILY, First dose on Mon03/22/23 at 2000 $Given 03/27/2023 8:26 AM FIBER DESIGN ENGINEER 900 mg $Given 03/26/2023 7:41 PM FIBER DESIGN ENGINEER 900 mg $Given 03/26/2023 1:49 PM FIBER DESIGN ENGINEER 900 mg HYDROmorphone (DILAUDID) injection 0.2 mg 0.2 mg, Intravenous, EVERY 2 HOURS PRN, moderate pain, Starting on Heidi 03/23/23 at 0530 $Given 03/25/2023 11:58 AM FIBER DESIGN ENGINEER 0.2 mg $Given 03/25/2023 1:42 AM FIBER DESIGN ENGINEER 0.2 mg $Given 03/24/2023 1:28 PM FIBER DESIGN ENGINEER 0.2 mg HYDROmorphone (DILAUDID) injection 0.4 mg 0.4 mg, Intravenous, EVERY 2 HOURS PRN, severe pain, Starting on Mon03/24/23 at 1400 $Given 03/24/2023 7:05 PM FIBER DESIGN ENGINEER 0.4 mg levothyroxine (SYNTHROID/LEVOTHROID) tablet 137 mcg 137 mcg, Oral, EVERY MORNING BEFORE BREAKFAST, First dose on Mon03/27/23 at 0730, Separate oral administration of iron- or calcium-containing products and levothyroxine by at least 4 hours. $Given 03/27/2023 6:53 AM FIBER DESIGN ENGINEER 137 mcg naloxone (NARCAN) injection 0.2 mg [...] Mon03/26/23 at 1137 $Given 03/27/2023 6:53 AM FIBER DESIGN ENGINEER 2.5 m g $Given 03/27/2023 1:58 AM FIBER DESIGN ENGINEER 2.5 mg pantoprazole (PROTONIX) IV push injection 40 mg 40 mg, Intravenous, DAILY WITH BREAKFAST, First dose on Mon03/22/23 at 1930, Irritant. $Given 03/27/2023 8:2 5 AM FIBER DESIGN ENGINEER 40 mg $Given 03/26/2023 8:09 AM FIBER DESIGN ENGINEER 40 mg $Given 03/25/2023 9:17 AM FIBER DESIGN ENGINEER 40 mg polyethylene glycol (MIRALAX) Packet 17 [...] bowel clean out. $Given 03/27/2023 8:26 AM FIBER DESIGN ENGINEER 17 g $Given 03/26/2023 7:42 PM FIBER DESIGN ENGINEER 17 g $Given 03/26/2023 8:09 AM FIBER DESIGN ENGINEER 17 g prochlorperazine (COMPAZINE) injection 5 mg [...] IV dormant line $Given 03/26/2023 1:51 PM FIBER DESIGN ENGINEER 3 mLs sodium chloride (PF) 0.9% PF flush 3 mL 3 mL, Intracatheter, EVERY 1 MIN PRN, line flush, other, to ensure patency or to lock dormant line, Starting on Mon03/23/23 at 2223 $Given 03/27/2023 8:26 AM FIBER DESIGN ENGINEER 3 mLs sodium chloride 0.9% irrigation (bag) PRN, Starting on Mon03/23/23 at 2040, Intra-procedure $Given 03/23/2023 8:40 PM FIBER DESIGN ENGINEER 1,000 mLs Operative Site/Surgi tio Site vancomycin (VANCOCIN) topical powder PRN, Starting on Mon03/23/23 at 2038, Intra-procedure $Given 03/23/2023 8:38 PM FIBER DESIGN ENGINEER 1 g Operative Site/Surgi tio Site venlafaxine (EFFEXOR) tablet 75 mg 75 mg, Oral, 3 TIMES DAILY, First dose on Mon03/22/23 at 1999 $Given 03/27/2023 8:26 AM FIBER DESIGN ENGINEER 75 mg $Given 03/26/2023 7:41 PM FIBER DESIGN ENGINEER 75 mg $Given 03/26/2023 1:49 PM FIBER DESIGN ENGINEER 75 mg documented in this encounter Active and Recently Administered Medications Times are shown in FIBER DESIGN ENGINEER. Scheduled Medication Order 03/25/2023 03/26/2023 03/27/2023 buPROPion [...] at 2000 0917 ($Given - Provider: Serenity Mortaaya RN)[phone] ($Given - Provider: Kushal Hickman RN)[id number] [...] Provider: Danielle Jimenez RN)[id number] ($Given - Provider: aDnielle Jimenez RN) prochlorperazine (COMPAZINE) injection 5 mg(Linked [...] stools. documented in this encounter Care Teams Parts Assembler Relationship Specialty Start Date End Date Juan Rojas MD [place] [address] [place] [address] PCP - General Family Medicine 03/23/23 documented as of this encounter
--- OUTSIDE RECORDS SUMMARY | 2023-05-26 16:13 | XMS_ITS | Encounter Summary ---
Author Name Unknown Organization [place] Address [address] [facility] [address] Care Team Providers Care Cable Splicer Name Role Phone Juan Rojas MD Primary Care Provider Reason for Visit * Auth/Cert (Routine) Specialty Diagnoses / Procedures Referred By Sundar davison Referred To Contact Orthopedics Diagnoses SBO (small bowel obstruction) (H) Bowel obstruction SBO (small bowel obstruction) (H) Ortho Spine [address] [place] [address] Referral ID Status Reason Start Date Expiration Date Visits Re quested Visits Authorized [id number] 1 1 Encounter Details Date Type Department Care Team (Late st Contact Info) Description 03/23/2023 6:26 PM SUPERVISING CHEF Anesthesia Event [facility] [address] [place] [address] Richy Scott MD [facility] ANESTHESIA [id number] [place] [address] Mckay Sheppard DO [facility] ANESTHESIA [id number] [place] [address] Anesthesia Record Procedure Summary Procedure Name Responsible [...] recorded are pre- induction. Nura Garces APRN GROUP EXERCISE CLASS INSTRUCTOR 183 An Induction 183 An Intubation 184 [...] Grade View: 1; Adjucts: Stylet; Placement Person: GROUP EXERCISE CLASS INSTRUCTOR; Attempts: 1 03/23/231835 by Nura Garces APRN GROUP EXERCISE CLASS INSTRUCTOR 03/23/232105 by Nura Garces APRN GROUP EXERCISE CLASS INSTRUCTOR Urethral Catheter 03/23/23; 2104; No; Other (Comment) [...] Scott MD March 23, 2023 9:43 PM RVISING CHEF * Anesthesia Procedure Notes - Nura Garces APRN CRNA - 03/23/2023 6:47 PM CSTAssociated Order(s): Airway Airway Patient location during procedure: OR Procedure Start/Stop Times: 03/23/2023 6:36 PM Staff - GROUP EXERCISE CLASS INSTRUCTOR: Nura Garces APRN CRNA Performed By: GROUP EXERCISE CLASS INSTRUCTOR Consent for Airway Urgency: elective Indications and [...] Administered Medication Administration Time: 03/23/2023 6:36 PM RVISING CHEF * Anesthesia Preprocedure Evaluation - Richy Scott [...] and realistic alternatives discussed. 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 - Discussed: - Discussed with: Patient Postoperative Care Pain management: IV analgesics, Oral pain medications, Multi-modal analgesia. PONV prophylaxis: Ondansetron (or other 5HT-3), Dexamethasone or Solumedrol Comments: Mckay Sheppard DO RVISING CHEF documented in this encounter Miscellaneous Notes * [...] APRN CRNA March 23, 2023 9:13 PM RVISING CHEF documented in this encounter Plan of Treatment Not on file documented as of this encounter Procedures Procedure Name Priority Date/Time Associated Diagnosis Comments ANE AIRWAY ETT PERFORMABLE Routine 03/23/2023 6:36 PM SUPERVISING CHEF documented in this encounter Results * ANE AIRWAY ETT PERFORMABLE (03/23/2023 6:36 PM SUPERVISING CHEF) Narrative Nura Garces APRN CRNA - 03/23/2023 6:36 PM SUPERVISING CHEF Nura Garces APRN CRNA ? 03/23/2023 ??6:48 PM Airway ? Patient location during procedure: OR ? Procedure Start/Stop Times: 03/23/2023 6:36 PM Staff - ? GROUP EXERCISE CLASS INSTRUCTOR: Nura Garces APRN CRNA ? Performed By: GROUP EXERCISE CLASS INSTRUCTOR Consent for Airway ? Urgency: elective Indications [...] Time: 03/23/2023 6:36 PM Richy Scott MD ID ANESTHESIA documented in this encounter Visit Diagnoses Not on filedocumented in this encounter Administered Medications Inactive Administered Medications - up to 3 most recent administrations Medication Order MAR Action Action Date Dose Rate Site cefOXitin (MEFOXIN) 1 g vial to attach to NS 100 mL bag for ADULTS or 25 mL bag for PEDS 1 g, Intravenous, POLE SETTER TO O.R., Starting on Heidi 03/23/23 at 1506, For 1 dose, Indications: Intra-Abdominal Infection $Given 03/23/2023 6:32 PM SUPERVISING CHEF 1 g dexAMETHasone (DECADRON) injection Intravenous, PRN, Administer over 1 Minutes, Starting on Heidi 03/23/23 at 1832, Anesthesia Intra-op $Given 03/23/2023 6:32 PM SUPERVISING CHEF 4 mg fentaNYL (PF) (SUBLIMAZE) injection Intravenous, PRN, Administer over 3-5 Minutes, Starting on Heidi 03/23/23 at 1832, Anesthesia Intra-op $Given 03/23/2023 7:46 PM SUPERVISING CHEF 50 mcg $Given 03/23/2023 6:32 PM SUPERVISING CHEF 100 mcg glycopyrrolate (ROBINUL) injection Intravenous, PRN, Administer over 1-2 Minutes, Starting on Heidi 03/23/23 at 1832, Anesthesia Intra-op $Given 03/23/2023 6:32 PM SUPERVISING CHEF 0.1 mg lactated ringers infusion at 75 mL/hr, Intravenous, CONTINUOUS, Starting on Heidi 03/23/23 at 0900, Until 03/26/23 at 1933 $New Bag 03/26/2023 7:34 AM SUPERVISING CHEF 75 mL/hr $New Bag 03/25/2023 6:45 PM SUPERVISING CHEF 75 mL/hr $New Bag 03/25/2023 4:44 AM SUPERVISING CHEF 75 mL/hr lidocaine 2% injection (MDV) Intravenous, PRN, Starting on Heidi 03/23/23 at 1832, Anesthesia Intra-op $Given 03/23/2023 6:32 PM SUPERVISING CHEF 20 mg ondansetron (ZOFRAN) injection Intravenous, PRN, Administer over 2-5 Minutes, Starting on Heidi 03/23/23 at 2006, Anesthesia Intra-op $Given 03/23/2023 8:06 PM SUPERVISING CHEF 4 mg phenylephrine (RENATE-SYNEPHRINE) injection Intravenous, CONTINUOUS PRN, Starting on Heidi 03/23/23 at 1845, Anesthesia Intra-op $Bolus 03/23/2023 6:55 PM SUPERVISING CHEF 100 mcg $Bolus 03/23/2023 6:51 PM SUPERVISING CHEF 150 mcg $New Bag 03/23/2023 6:45 PM SUPERVISING CHEF 150 mcg propofol (DIPRIVAN) injection 10 mg/mL vial Intravenous, PRN, Starting on Heidi 03/23/23 at 1832, Anesthesia Intra-op $Given 03/23/2023 6:32 PM SUPERVISING CHEF 120 mg rocuronium injection Intravenous, PRN, Starting on Heidi 03/23/23 at 1855, Anesthesia Intra-op $Given 03/23/2023 7:09 PM SUPERVISING CHEF 20 mg $Given 03/23/2023 6:55 PM SUPERVISING CHEF 30 mg succinylcholine (ANECTINE) injection Intravenous, PRN, Starting on Heidi 03/23/23 at 1832, Anesthesia Intra-op $Given 03/23/2023 6:32 PM SUPERVISING CHEF 40 mg sugammadex (BRIDION) injection Intravenous, PRN, Starting on Heidi 03/23/23 at 2054, Anesthesia Intra-op $Given 03/23/2023 8:54 PM SUPERVISING CHEF 200 mg documented in this encounter Care Teams Cable Splicer Relationship Specialty Start Date End Date Juan Rojas MD [address] [place] [address] PCP - General Family Medicine 03/23/23 documented as of this encounter
--- OUTSIDE RECORDS SUMMARY | 2023-05-26 16:13 | XMS_ITS | Encounter Summary ---
Author Name Unknown Organization [facility] Address [address] [place] [address] Care Team Providers Care Graduate Teacher Education Name Role Phone Juan Rojas MD Primary Care Provider [phone] Reason for Visit * Auth/Cert (Routine) Specialty Diagnoses / Procedures Referred By Sundar davison Referred To Contact Orthopedics Diagnoses SBO (small bowel obstruction) (H) Bowel obstruction SBO (small bowel obstruction) (H) Ortho Spine [address] [place] [address] Referral ID Status Reason Start Date Expiration Date Visits Re quested Visits Authorized [id number] 1 1 Encounter Details Date Type Department Care Team (Latest Contact Info) Description 03/22/2023 3:53 PM SAFETY FIRE BOSS - 03/27/2023 1:40 PM SAFETY FIRE BOSS Hospital Encounter [facility] Ortho Spine [address] [place] [address] Fransisco Licea MD [address] [place] [address] Radha Blood MD [address] [place] [address] SBO (small bowel obstruction) (H) [...] Comments Blood Pressure 155/66 03/27/2023 8:11 AM SAFETY FIRE BOSS Pulse 90 03/27/2023 8:11 AM SAFETY FIRE BOSS Temperature 36.5 ??C (97.7 ??F) 03/27/2023 8:11 AM CS T Respiratory Rate 18 03/27/2023 8:11 AM SAFETY FIRE BOSS Oxygen Saturation 93% 03/27/2023 8:11 AM SAFETY FIRE BOSS Inhaled Oxygen Concentration - - Weight 98.3 kg (216 lb 11.4 oz) 03/22/2023 3:57 PM SAFETY FIRE BOSS Height 160 cm (5' 3) 03/22/2023 5:00 PM SAFETY FIRE BOSS Body Mass Index 38.39 03/22/2023 3:57 PM SAFETY FIRE BOSS documented in this encounter Discharge Summaries * Darshan Simmons MD - 03/27/2023 1:40 PM CST [facility] Hospitalist Discharge Summary Date of Admission: [...] your miguelito removed, please call us at [phone] and ask to speak with our nurse. 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 Acute blood loss and dilutional anemia -Hgb dropped from 11-8 after IV hydration and surgery. Follow as outpatient. Prediabetic Hgb A1c 03/2022 was 5.9%. Hx of mitral valve stenosis Hx of aortic valve stenosis Hx of cLVH No e/o decompensation. Peripheral neuropathy Continue po gabapentin Remote hx of a DVT Hyperlipidemia Can resume COMPOUNDING AND FINISHING SUPERVISOR atorvastatin on discharge. Depression Continue COMPOUNDING AND FINISHING SUPERVISOR bupropion and venlafaxine as tolerated. History [...] minutes discharging this patient. Darshan Simmons MD [facility] ORTHO SPINE [address] [facility] [address] Physical Exam Vital Signs: Weight: 216 lbs 11.39 oz Primary Care Physician Juan Rojas Discharge Orders Follow-up and recommended labs and tests Follow up with surgery clinic or PCP in about 10 days to have miguelito removed. If you have any questions or concerns or need to make appointment to have your miguelito removed, please call us at [phone] and ask to speak with our nurse. We are located at [address] [facility] [address], [place] [address] Activity Your activity upon discharge: activity as [...] EXAM: XR ABDOMEN PORT 1 VIEW LOCATION: [facility] DATE: 03/24/2023 INDICATION: confirm NG placement for decompression COMPARISON: None. Impression IMPRESSION: NG tube side-port is at the EG junction and should be advanced approximately 8 cm. Prior postoperative changes. Normal bowel gas pattern. Significant thoracolumbar curvature convex to theleft. US Renal Complete Non-Vascular Narrative EXAM: US RENAL COMPLETE NON-VASCULAR LOCATION: [facility] DATE: 03/25/2023 INDICATION: BRICE post op [...] Sulfa-cream product 5 or 6 years ago TY FIRE BOSS documented in this encounter Medications at Time [...] Dr. Simmons notified and med escripted to [facility], per patient request. Oxycodone returned to discharge pharmacy. Patient also left Provena pump charging chord. Will send via telecommunications field engineer to patients home. TY FIRE BOSS * Darshan Simmons MD - 03/27/2023 11:48 AM CST 40 minutes spent on discharge. I discussed with Dayron Huynh. 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 - BP remains low / well controlled and have not yet resumed. - Continue to monitor. GERD/hypothyroidism Resuming COMPOUNDING AND FINISHING SUPERVISOR levothyroxine. Continue PPI by IV. Prediabetic Hgb A1c 03/2022 was 5.9%. Hx of mitral valve stenosis Hx of aortic valve stenosis Hx of cLVH No e/o decompensation. Peripheral neuropathy Continue po gabapentin Remote hx of a DVT Continue SCDs. Considered subQ heparin addition, however, Hgb trending down slightly and likely discharge as soon as 03/27. Encourage ambulation and follow. Hyperlipidemia Can resume COMPOUNDING AND FINISHING SUPERVISOR atorvastatin on discharge. Depression Continue COMPOUNDING AND FINISHING SUPERVISOR bupropion and venlafaxine as tolerated. History of COVID 19 vaccination S/p 3 shot pfizer series followed by moderna booster 03/2022 (biv) DVT Prophylaxis: Pneumatic Compression Devices Code Status: Full Code Expected discharge: Anticipate hospital stay at least 1 more day pending post-op course. Bernice Stearns MD FACP Hospitalist Service [facility] Securely message with [employer] (more info) Interval History Diet being advanced [...] previous visit (from the past 24 hour(s)). 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 History of COVID 19 vaccination S/p 3 shot pfizer series followed by moderna booster 03/2022 (biv) DVT Prophylaxis: Pneumatic Compression Devices Code Status: Full Code Expected discharge: Anticipate hospital stay at least several more days pending post-op course and surgery recommendations. Bernice Stearns MD FACP Hospitalist Service [facility] Securely message with [employer] (more info) Interval History Patient's diet has [...] previous visit (from the past 24 hour(s)). 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 History of COVID 19 vaccination S/p 3 shot pfizer series followed by moderna booster 03/2022 (biv) DVT Prophylaxis: Pneumatic Compression Devices Code Status: Full Code Expected discharge: Anticipate hospital stay at least several more days pending post-op course. Bernice Stearns MD FACP Hospitalist Service [facility] Securely message with [employer] (more info) Interval [...] EXAM: XR ABDOMEN PORT 1 VIEW LOCATION: [facility] DATE: 03/24/2023 INDICATION: confirm NG placement for decompression COMPARISON: None. Impression IMPRESSION: NG tube side-port is at the EG junction and should be advanced approximately 8 cm. Prior postoperative changes. Normal bowel gas pattern. Significant thoracolumbar curvature convex to theleft. TY FIRE BOSS * Cody Villarreal MD - 03/24/2023 9:35 AM CST [facility] General Surgery Progress Note Assessment and [...] AST 64* 114* -- Daisy Pedraza PA-C TY FIRE BOSS * Abdirizak Mullins RN - 03/23/2023 11:10 PM CST Pt arrived from PACU via cart around 2230. On 2L O2. Reoriented to room. 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 History of COVID 19 vaccination S/p 3 shot pfizer series followed by moderna booster 03/2022 (biv) DVT Prophylaxis: Pneumatic Compression Devices Code Status: Full Code Expected discharge: Anticipate hospital stay at least several more days pending clinical improvement. Bernice Stearns MD FACP Hospitalist Service [facility] Securely message with [employer] (more info) Interval History Patient with increased [...] previous visit (from the past 24 hour(s)). TY FIRE BOSS * Josey Jefferson MD - 03/22/2023 6:06 [...] at her ileum, by a physician at [facility], and that she may need dilation. Her [...] Fabian. 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 Auth Provider Superintendent Recreation End Date acetaminophen (TYLENOL) 500 MG tablet [...] condensed version of labs obtained at [facility] TY FIRE BOSS documented in this encounter Consult Notes * [...] assistance with transportation home at discharge. Per broker in charge, patient is anticipated to discharge today. Per bedside RN patient is appropriate for taxi transport. CM met with patient at the bedside who denied having any family/friends that can provide transportationback to her home. She denied ability to pay for taxi transportation. She confirmed her residence [facility] in [place] and stated she will be able to get into facility when she returns. She stated moreno is planning to stay with her for a couple nights. CM will assist with [employer] set up, bedside RN informed. Addendum 1328: CM confirmed patient's home address in [place] and set up [employer] taxi to patient's home address. CM reinforced importance of attending follow up appts and patient verbalized understanding and stated she can arrange transport to get to follow up appts. Lisa Rivas RN, BSN Inpatient Care Coordination [facility] [phone] TY FIRE BOSS * Cody Villarreal MD - 03/23/2023 4:51 [...] mg Oral BID cefOXitin 1 g Intravenous Transplant Surgeon to OR gabapentin 900 mg Oral TID [...] studies, counseling and coordinating care: 92 minutes. TY FIRE BOSS documented in this encounter Miscellaneous Notes * Care Plan - Clemencia Ballesteros RN - 03/27/2023 12:04 PM CST Discharge instructions given, iv removed. Filled meds given for home use. Patient will take taxi home arranged through . TY FIRE BOSS * Plan of Care - Danielle Jimenez [...] states she needs assistance with transportation home. TY FIRE BOSS * Plan of Care - Danielle Jimenez [...] Last PVR 180 ml. Discharge plan pending. TY FIRE BOSS * Care Plan - Kushal Hickman RN - 03/25/2023 11:19 PM CST Time of Care: [id number] Orientation: A/O x 4 VS: BP 100/41 [...] @ 75ml/hr Diet: Full Liquids Discharge: TBD TY FIRE BOSS * Plan of Care - Serenity Morataya [...] cares. Will continue to provide supportive care. TY FIRE BOSS * Plan of Care - Danielle Jimenez [...] with PRN IV dilaudid. Discharge plan pending. TY FIRE BOSS * Plan of Care - Nevin Rizvi [...] removed. Tachycardic, provider ordered EKG, done today. TY FIRE BOSS * Plan of Care - Abdirizak Mullins [...] 75. NPO with ice chips. Plan TBD. TY FIRE BOSS * Op Note - Cody Villarreal MD - 03/23/2023 6:58 PM CST General Surgery Operative Note Pre-operative diagnosis: SBO Post-operative diagnosis: same Procedure: Diagnostic laparoscopy, converted to open laparostomy, extensive lysis of adhesions, removal of small bowel phytobezoar through small bowel enterotomy, repair of small bowel enterotomy, revision of ileostomy fascial exit, peritoneal lavage Surgeon: Cody Villarreal MD Movie Actor(s): Daisy Pedraza PA-C The Physician Movie Actor was medically necessary for their expertise in [...] end of the case. Cody Villarreal MD TY FIRE BOSS * Plan of Care - Nevin Rizvi [...] to pre-op, pt transferred down @ 1630. TY FIRE BOSS * Plan of Care - Malinda Graves [...] Plan TBD, colorectal and general surgery consulted. TY FIRE BOSS * Provider Notification - Malinda Graves RN - 03/23/2023 4:53 AM SAFETY FIRE BOSS 0453: Provider notified that pt have increase abd pain. Receiving IV dilaudid. Due to frequency unable to give dose at this time. Pt c/o gas pain. NPO. Orders? TY FIRE BOSS * Plan of Care - Daksha Mejia RN - 03/22/2023 10:06 PM CST Goal Outcome Evaluation: Vital signs stable. Bowel sounds absent, no flatus, no stool in ostomy appliance. Denies nausea, iv infusing.Npo. Pain controlled with iv dilaudid. Colorectal surgery consult in am. Care plan reviewed with pt. TY FIRE BOSS * Pharmacy-Admission Medication History - Souleymane Naylor - 03/22/2023 4:54 PM SAFETY FIRE BOSS Degreasing Solution Mixer Admission Medication History Admission medication history is complete. The information provided in this note is only as accurateas the sources available at the time of the update. Information Source(s): Patient and CareEverywhere/SureScripts via in-person Pertinent Information: None Changes made to COMPOUNDING AND FINISHING SUPERVISOR medication list: Added: All Deleted: None Changed: None Medication Affordability:No Allergies reviewed with patient and updates made in EHR: yes Medication History Completed By: Souleymane Naylor 03/22/2023 4:54 PM Prior to Admission medications Medication Sig Last Dose Taking? Auth Provider Care Home End Date acetaminophen (TYLENOL) 500 MG tablet [...] at Noon Yes Unknown, Entered By History TY FIRE BOSS Associated attestation - Azeem Tomlin RPH - 03/22/2023 6:34 PM SAFETY FIRE BOSS Although I was not present for the interview, nor did I personally see the patient, to my knowledgethe commissioner of internal revenue has compiled the COMPOUNDING AND FINISHING SUPERVISOR medication list to the best of [...] AND PLATELET MORPHOLOGY Routine 03/27/2023 6:31 AM SAFETY FIRE BOSS CBC WITH PLATELETS AND DIFFERENTIAL Routine 03/27/2023 6:31 AM SAFETY FIRE BOSS CBC WITH PLATELETS & DIFFERENTIAL Routine 03/27/2023 6:31 AM SAFETY FIRE BOSS MAGNESIUM Routine 03/27/2023 6:31 AM SAFETY FIRE BOSS BASIC METABOLIC PANEL Routine 03/27/2023 6:31 AM SAFETY FIRE BOSS CBC WITH PLATELETS AND DIFFERENTIAL Routine 03/26/2023 6:54 AM SAFETY FIRE BOSS CBC WITH PLATELETS & DIFFERENTIAL Routine 03/26/2023 6:54 AM SAFETY FIRE BOSS MAGNESIUM Routine 03/26/2023 6:54 AM SAFETY FIRE BOSS BASIC METABOLIC PANEL Routine 03/26/2023 6:54 AM SAFETY FIRE BOSS GLUCOSE BY METER Routine 03/25/2023 4:56 PM SAFETY FIRE BOSS US RENAL COMPLETE NON-VASCULAR Routine 03/25/2023 11:14 AM SAFETY FIRE BOSS CBC WITH PLATELETS AND DIFFERENTIAL Routine 03/25/2023 6:54 AM SAFETY FIRE BOSS CBC WITH PLATELETS & DIFFERENTIAL Routine 03/25/2023 6:54 AM SAFETY FIRE BOSS MAGNESIUM Routine 03/25/2023 6:54 AM SAFETY FIRE BOSS BASIC METABOLIC PANEL Routine 03/25/2023 6:54 AM SAFETY FIRE BOSS EKG 12-LEAD, TRACING ONLY Routine 03/24/2023 3:35 PM SAFETY FIRE BOSS CBC WITH PLATELETS AND DIFFERENTIAL Routine 03/24/2023 7:04 AM SAFETY FIRE BOSS CBC WITH PLATELETS & DIFFERENTIAL Routine 03/24/2023 7:04 AM SAFETY FIRE BOSS PHOSPHORUS Routine 03/24/2023 7:04 AM SAFETY FIRE BOSS MAGNESIUM Routine 03/24/2023 7:04 AM SAFETY FIRE BOSS HEPATIC FUNCTION PANEL Routine 7:04 AM SAFETY FIRE BOSS BASIC METABOLIC PANEL Routine 03/24/2023 7:04 AM SAFETY FIRE BOSS XR ABDOMEN PORT 1 VIEW Routine 12:29 AM SAFETY FIRE BOSS LAPAROSCOPY, DIAGNOSTIC, BY GENERAL SURGERY 03/23/2023 6:19 PM SAFETY FIRE BOSS SBO (small bowel obstruction) (H) POTASSIUM Routine 03/23/2023 6:19 AM SAFETY FIRE BOSS MAGNESIUM Routine 03/23/2023 6:19 AM SAFETY FIRE BOSS COMPREHENSIVE METABOLIC PANEL Routine 03/23/2023 6:19 AM SAFETY FIRE BOSS CBC WITH PLATELETS Routine 03/23/2023 6: 19 AM SAFETY FIRE BOSS LACTIC ACID WHOLE BLOOD STAT 03/22/2023 5:05 PM SAFETY FIRE BOSS BASIC METABOLIC PANEL STAT 03/22/2023 5:05 PM SAFETY FIRE BOSS CBC WITH PLATELETS STAT 03/22/2023 5: 05 PM SAFETY FIRE BOSS documented in this encounter Results * (ABNORMAL) RBC and Platelet Morphology (03/27/2023 6:31 AM SAFETY FIRE BOSS) Platelet Assessment Platelets Clumped(A) Automated Count Confirmed. Platelet morphology is normal. 03/27/2023 7:27 AM SAFETY FIRE BOSS [facility] Acanthocytes 03/27/2023 7:27 AM SAFETY FIRE BOSS [facility] Merrill Rods 03/27/2023 7:27 AM SAFETY FIRE BOSS [facility] Basophilic Stippling 03/27/2023 7:27 AM SAFETY FIRE BOSS [facility] Bite Cells 03/27/2023 7:27 AM SAFETY FIRE BOSS [facility] Blister Cells 03/27/2023 7:27 AM SAFETY FIRE BOSS [facility] Raya Cells 03/27/2023 7:27 AM SAFETY FIRE BOSS [facility] Elliptocytes 03/27/2023 7:27 AM SAFETY FIRE BOSS [facility] Hgb C Crystals 03/27/2023 7:27 AM SAFETY FIRE BOSS [facility] Bagley-Terral Bodies 03/27/2023 7:27 AM SAFETY FIRE BOSS [facility] Hypersegmented Neutrophils 03/27/2023 7:27 AM SAFETY FIRE BOSS [facility] Polychromasia 03/27/2023 7:27 AM SAFETY FIRE BOSS [facility] RBC agglutination 023 7:27 AM SAFETY FIRE BOSS [facility] RBC Fragments 03/27/2023 7:27 AM SAFETY FIRE BOSS [facility] Reactive Lymphocytes 03/27/2023 7:27 AM SAFETY FIRE BOSS [facility] Rouleaux 03/27/2023 7:27 AM SAFETY FIRE BOSS [facility] Sickle Cells 03/27/2023 7:27 AM SAFETY FIRE BOSS [facility] Smudge Cells 03/27/2023 7:27 AM SAFETY FIRE BOSS [facility] Spherocytes 03/27/2023 7:27 AM SAFETY FIRE BOSS [facility] Stomatocytes 03/27/2023 7:27 AM SAFETY FIRE BOSS [facility] Target Cells 03/27/2023 7:27 AM SAFETY FIRE BOSS [facility] Teardrop Cells 03/27/2023 7:27 AM SAFETY FIRE BOSS [facility] Toxic Neutrophils 023 7:27 AM SAFETY FIRE BOSS [facility] RBC Morphology Confirmed RBC Indices 03/27/2023 7:27 AM SAFETY FIRE BOSS [facility] Blood STRUCTURE OF RIGHT UPPER LIMB / Unknown Venipuncture / Unknown 03/27/2023 6:31 AM SAFETY FIRE BOSS 03/27/2023 6:39 AM SAFETY FIRE BOSS Bernice Stearns MD LAB - BLOOD ORDER MILE [facility] Care Lab [address] Lab (1st floor, no room number) [place] [address], [facility] [phone] * (ABNORMAL) CBC with platelets and differential (03/27/2023 6:31 AM SAFETY FIRE BOSS) WBC Count 6.9 4.0 - 11.0 10e3/uL 03/27/2023 7:29 AM SAFETY FIRE BOSS [facility] RBC Count 2.95(L) 3.80 - 5.20 10e6/uL 03/27/2023 7:29 AM SAFETY FIRE BOSS [facility] Hemoglobin 9.2(L) 11.7 - 15.7 g/dL 03/27/2023 7:29 AM SAFETY FIRE BOSS [facility] Hematocrit 29.6(L) 35.0 - 47.0 % 03/27/2023 7:29 AM SAFETY FIRE BOSS LABORATORY MCV 100 78 - 100 fL 03/27/2023 7:29 AM SAFETY FIRE BOSS LABORATORY MCH 31.2 26.5 - 33.0 pg 03/27/2023 7:29 AM SAFETY FIRE BOSS LABORATORY MCHC 31.1(L) 31.5 - 36.5 g/dL 03/27/2023 7:29 AM SAFETY FIRE BOSS LABORATORY RDW 13.9 10.0 - 15.0 % 03/27/2023 7:29 AM SAFETY FIRE BOSS [facility] Platelet Count 03/27/2023 7:29 AM SAFETY FIRE BOSS [facility] Comment:Platelets Clumped-Pl atelet Count Not Available % Neutrophils 62 % 03/27/2023 7:29 AM SAFETY FIRE BOSS [facility] % Lymphocytes 21 % 03/27/2023 7:29 AM SAFETY FIRE BOSS [facility] % Monocytes 14 % 03/27/2023 7:29 AM SAFETY FIRE BOSS [facility] % Eosinophils 1 % 03/27/2023 7:29 AM SAFETY FIRE BOSS [facility] % Basophils 1 % 03/27/2023 7:29 AM SAFETY FIRE BOSS [facility] % Immature Granulocytes 1 % 03/27/2023 7:29 AM SAFETY FIRE BOSS [facility] NRBCs per 100 WBC 0 <1 /100 023 7:29 AM SAFETY FIRE BOSS [facility] Absolute Neutrophils 4.4 1.6 - 8.3 10e3/uL 03/27/2023 7:29 AM SAFETY FIRE BOSS LABORATORY Absolute Lymphocytes 1.4 0.8 - 5.3 10e3/uL 03/27/2023 7:29 AM SAFETY FIRE BOSS LABORATORY Absolute Monocytes 0.9 0.0 - 1.3 10e3/uL 03/27/2023 7:29 AM SAFETY FIRE BOSS LABORATORY Absolute Eosinophils 0.0 0.0 - 0.7 10e3/uL 03/27/2023 7:29 AM SAFETY FIRE BOSS LABORATORY Absolute Basophils 0.0 0.0 - 0.2 10e3/uL 03/27/2023 7:29 AM SAFETY FIRE BOSS LABORATORY Absolute Immature Granulocytes 0.1 <=0.4 10e3/uL 03/27/2023 7:29 AM SAFETY FIRE BOSS LABORATORY Absolute NRBCs 0.0 10e3/uL 03/27/2023 7:29 AM SAFETY FIRE BOSS LABORATORY Blood STRUCTURE OF RIGHT UPPER LIMB / Unknown Venipuncture / Unknown 03/27/2023 6:31 AM SAFETY FIRE BOSS 03/27/2023 6:39 AM SAFETY FIRE BOSS Bernice Stearns MD LAB - BLOOD ORDER [facility] Lab [address] [facility] Lab (1st floor, no room number) [place] [address] [phone] * (ABNORMAL) Basic metabolic panel (03/27/2023 6:31 AM SAFETY FIRE BOSS) [facility] Sodium 134(L) 135 - 145 mmol/L 03/27/2023 6:59 AM [facility] Comment:Reference intervals for this test were updated on 01/24/2023 to more accurately reflect our healthy population. There may be differences in the flagging of prior results with similar values performed with this method. Interpretation of those prior results can be made in the context of the updated reference intervals. Potassium 4.1 3.4 - 5.3 mmol/L 03/27/2023 6:59 AM SAFETY FIRE BOSS LABORATORY Chloride 101 98 - 107 mmol/L 03/27/2023 6:59 AM [facility] Carbon Dioxide (CO2) 24 22 - 29 mmol/L 03/27/2023 6:59 AM SAFETY FIRE BOSS LAB[facility]AT[facility] Anion Gap 9 7 - 15 mmol/L 03/27/2023 6:59 AM [facility] Urea Nitrogen 15.5 8.0 - 23.0 mg/dL 03/27/2023 6:59 AM SAFETY FIRE [facility]OSS [facility] Creatinine 0.84 0.51 - 0.95 mg/dL 03/27/2023 6:59 AM SAFETY [facility]RE [facility]OSS LAB[facility] GFR Estimate 72 >60 mL/min/1. 73m2 03/27/2023 6:59 AM [facility]AFET[facility]RE [facility] Calcium 8.5(L) 8.8 - 10.2 mg/dL 03/27/2023 6:59 [facility] Glucose 102(H) 70 - 99 mg/dL 03/27/2023 6:59 AM [facility] Blood STRUCTURE OF RIGHT UPPER LIMB / Unknown Venipuncture / Unknown 03/27/2023 6:31 AM [facility] 03/27/2023 6:39 AM [facility] Bernice Stearns MD LAB - BLOOD ORDER MILE [facility] Lab [address] Lab (1st floor, no room number) [place] [address], [facility] [phone] * (ABNORMAL) Magnesium (03/27/2023 6:31 AM SAFETY FIRE BOSS) [facility] Signature Magnesium 1.6(L) 1.7 - 2.3 mg/dL 03/27/2023 6:59 AM [facility] Blood STRUCTURE OF RIGHT UPPER LIMB / Unknown Venipuncture / Unknown 03/27/2023 6:31 AM [facility] 03/27/2023 6:39 AM [facility] Fransisco Licea MD LAB - BLOOD ORDERA BLES [facility] [address] Lab (1st floor, no room number) [place] [address], [facility] [phone] * (ABNORMAL) CBC with platelets and differential (03/26/2023 6:54 AM [facility]OSS) [facility] WBC Count 8.1 4.0 - 11.0 10e3/uL 03/26/2023 7:06 AM [facility] RBC Count 2.80(L) 3.80 - 5.20 10e6/uL 03/26/2023 7:06 AM [facility] Hemoglobin 8.8(L) 11.7 - 15.7 g/dL 03/26/2023 7:06 AM [facility] Hematocrit 27.0(L) 35.0 - 47.0 % 03/26/2023 7:06 AM [facility] MCV 96 78 - 100 fL 03/26/2023 7:06 AM [facility] MCH 31.4 26.5 - 33.0 pg 03/26/2023 7:06 AM [facility] MCHC 32.6 31.5 - 36.5 g/dL 03/26/2023 7:06 AM [facility] RDW 13.6 10.0 - 15.0 % 03/26/2023 7:06 AM [facility] Platelet Count 257 150 - 450 10e3/uL 03/26/2023 7:06 AM [facility] % Neutrophils 73 % 03/26/2023 7:06 AM [facility] % Lymphocytes 14 % 03/26/2023 7:06 AM [facility] % Monocytes 12 % 03/26/2023 7:06 AM [facility] % Eosinophils 0 % 03/26/2023 7:06 AM [facility] % Basophils 0 % 03/26/2023 7:06 AM [facility] % Immature Granulocytes 1 % 03/26/2023 7:06 AM [facility] NRBCs per 100 WBC 0 <1 /100 023 7:06 AM [facility] Absolute Neutrophils 5.9 1.6 - 8.3 10e3/uL 03/26/2023 7:06 AM [facility] Absolute Lymphocytes 1.1 0.8 - 5.3 10e3/uL 03/26/2023 7:06 AM [facility] Absolute Monocytes 0.9 0.0 - 1.3 10e3/uL 03/26/2023 7:06 AM [facility] Absolute Eosinophils 0.0 0.0 - 0.7 10e3/uL 03/26/2023 7:06 AM [facility] Absolute Basophils 0.0 0.0 - 0.2 10e3/uL 03/26/2023 7:06 AM [facility] Absolute Immature Granulocytes 0.1 <=0.4 10e3/uL 03/26/2023 7:06 AM [facility] Absolute NRBCs 0.0 10e3/uL 03/26/2023 7:06 AM [facility] Blood STRUCTURE OF RIGHT UPPER LIMB / Unknown Venipuncture / Unknown 03/26/2023 6:54 AM [facility] 03/26/2023 7:02 AM [facility] Bernice Stearns MD LAB - BLOOD ORDER MILE LABORATORY [facility] Lab [address] Lab (1st floor, no room number) [place] [phone], [facility] [phone] * Magnesium (03/26/2023 6:54 AM [facility] FI[facility]OSS) Magnesium 1.8 1.7 - 2.3 mg/dL 03/26/2023 7:22 AM [facility] Blood STRUCTURE OF RIGHT UPPER LIMB / Unknown Venipuncture / Unknown 03/26/2023 6:54 AM [facility] 03/26/2023 7:02 AM [facility] Bernice Stearns MD LAB - BLOOD ORDER MILE LABORATORY [facility] Care Lab [address] Lab (1st floor, no room number) [place] [phone], [place] [phone] * (ABNORMAL) Basic metabolic panel (03/26/2023 6:54 AM [facility]) Sodium 135 135 - 145 mmol/L 03/26/2023 7:22 AM [facility] Comment:Reference intervals for this test were updated on 01/24/2023 to more accurately reflect our healthy population. There may be differences in the flagging of prior results with similar values performed with this method. Interpretation of those prior results can be made in the context of the updated reference intervals. Potassium 4.6 3.4 - 5.3 mmol/L 03/26/2023 7:22 AM [facility] Chloride 101 98 - 107 mmol/L 03/26/2023 7:22 AM [facility] Carbon Dioxide (CO2) 26 22 - 29 mmol/L 03/26/2023 7:22 AM [facility] Anion Gap 8 7 - 15 mmol/L 03/26/2023 7:22 AM [facility] Urea Nitrogen 21.8 8.0 - 23.0 mg/dL 03/26/2023 7:22 AM [facility] Creatinine 0.99(H) 0.51 - 0.95 mg/dL 03/26/2023 7:22 AM [facility] GFR Estimate 59(L) >60 mL/min/1. 73m2 03/26/2023 7:22 AM [facility] Calcium 8.9 8.8 - 10.2 mg/dL 03/26/2023 7:22 AM [facility] Glucose 121(H) 70 - 99 mg/dL 03/26/2023 7:22 AM [facility] Blood STRUCTURE OF RIGHT UPPER LIMB / Unknown Venipuncture / Unknown 03/26/2023 6:54 AM [facility] 03/26/2023 7:02 AM [facility] Bernice Stearns MD LAB - BLOOD ORDER MILE [facility] Lab [address] [facility] Lab (1st floor, no room number) [place] [address], [facility] [phone] * (ABNORMAL) Glucose by meter (03/25/2023 4:56 PM SAFETY FIRE [facility]OSS) [facility] GLUCOSE BY METER POCT 119(H) 70 - 99 mg/dL 03/25/2023 5:04 PM [facility] POC Blood, Capillary BLOOD SPECIMEN / Unknown 03/25/2023 4:56 PM [facility]Y FI[facility]OSS 03/25/2023 5:04 PM [facility] FI[facility] Fransisco Licea MD LAB - BEAKER POCT [facility] Acute [facility] Lab [address] Lab (1st floor, no room number) [place] [address], [facility] [phone] * US Renal Complete Non-Vascular (03/25/2023 11:14 AM [facility]Y FI[facility]OSS) Anatomical Region Laterality Modality Abdomen/Pelvis Ultrasound 03/25/2023 11:1 4 AM [facility] Impressions 03/25/2023 3:04 PM [facility] IMPRESSION: 1. ??Normal kidney ultrasound. Narrative 03/25/2023 3:04 PM [facility] EXAM: US RENAL COMPLETE NON-VASCULAR LOCATION: [facility] DATE: 03/25/2023 INDICATION: BRICE post op abdominal surgery, rule out obstruction COMPARISON: None. TECHNIQUE: Routine Bilateral Renal and Bladder Ultrasound. FINDINGS: RIGHT KIDNEY: 10.2 cm. Normal without hydronephrosis or masses. LEFT KIDNEY: 11.1 cm. Normal without hydronephrosis or masses. BLADDER: Normal. Procedure Note Kirby Diamond MD - 03/25/2023 EXAM: US RENAL COMPLETE NON-VASCULAR LOCATION: [facility] DATE: 03/25/2023 INDICATION: BRICE post op abdominal surgery, rule out obstruction COMPARISON: None. TECHNIQUE: Routine Bilateral Renal and Bladder Ultrasound. FINDINGS: RIGHT KIDNEY: 10.2 cm. Normal without hydronephrosis or masses. LEFT KIDNEY: 11.1 cm. Normal without hydronephrosis or masses. BLADDER: Normal. IMPRESSION: 1. Normal kidney ultrasound. Bernice Stearns MD IMG US ORDERABLES * (ABNORMAL) CBC with platelets and differential (03/25/2023 6:54 AM [facility]) WBC Count 11.0 4.0 - 11.0 10e3/uL 03/25/2023 7:25 AM [facility] RBC Count 2.90(L) 3.80 - 5.20 10e6/uL 03/25/2023 7:25 AM [facility] Hemoglobin 9.1(L) 11.7 - 15.7 g/dL 03/25/2023 7:25 AM [facility] Hematocrit 28.3(L) 35.0 - 47.0 % 03/25/2023 7:25 AM [facility] MCV 98 78 - 100 fL 03/25/2023 7:25 AM [facility] MCH 31.4 26.5 - 33.0 pg 03/25/2023 7:25 AM [facility] MCHC 32.2 31.5 - 36.5 g/dL 03/25/2023 7:25 AM [facility] RDW 13.8 10.0 - 15.0 % 03/25/2023 7:25 AM [facility] Platelet Count 220 150 - 450 10e3/uL 03/25/2023 7:25 AM [facility] % Neutrophils 74 % 03/25/2023 7:25 AM [facility] % Lymphocytes 11 % 03/25/2023 7:25 AM [facility] % Monocytes 14 % 03/25/2023 7:25 AM [facility] % Eosinophils 0 % 03/25/2023 7:25 AM [facility] % Basophils 0 % 03/25/2023 7:25 AM [facility] % Immature Granulocytes 1 % 03/25/2023 7:25 AM [facility] NRBCs per 100 WBC 0 <1 /100 023 7:25 AM [facility] Absolute Neutrophils 8.2 1.6 - 8.3 10e3/uL 03/25/2023 7:25 AM [facility] Absolute Lymphocytes 1.2 0.8 - 5.3 10e3/uL 03/25/2023 7:25 AM [facility] Absolute Monocytes 1.5(H) 0.0 - 1.3 10e3/uL 03/25/2023 7:25 AM [facility] Absolute Eosinophils 0.0 0.0 - 0.7 10e3/uL 03/25/2023 7:25 AM [facility] Absolute Basophils 0.0 0.0 - 0.2 10e3/uL 03/25/2023 7:25 AM [facility] Absolute Immature Granulocytes 0.1 <=0.4 10e3/uL 03/25/2023 7:25 AM [facility] Absolute NRBCs 0.0 10e3/uL 03/25/2023 7:25 AM [facility] Blood STRUCTURE OF RIGHT HAND / Unknown Venipuncture / Unknown 03/25/2023 6:54 AM [facility] FI[facility]OSS 03/25/2023 7:22 AM [facility] Bernice Stearns MD LAB - BLOOD ORDER MILE [facility] LABORAT[facility] Lab [address] [facility] Lab (1st floor, no room number) [place] [address], [facility] [phone] * (ABNORMAL) Basic metabolic panel (03/25/2023 6:54 AM [facility]) Sodium 133(L) 135 - 145 mmol/L 03/25/2023 7:41 AM [facility] Comment:Reference intervals for this test were updated on 01/24/2023 to more accurately reflect our healthy population. There may be differences in the flagging of prior results with similar values performed with this method. Interpretation of those prior results can be made in the context of the updated reference intervals. Potassium 4.6 3.4 - 5.3 mmol/L 03/25/2023 7:41 AM [facility] Chloride 98 98 - 107 mmol/L 03/25/2023 7:41 AM [facility] Carbon Dioxide (CO2) 25 22 - 29 mmol/L 03/25/2023 7:41 AM [facility] Anion Gap 10 7 - 15 mmol/L 03/25/2023 7:41 AM [facility] Urea Nitrogen 42.9(H) 8.0 - 23.0 mg/dL 03/25/2023 7:41 AM [facility] Creatinine 1.62(H) 0.51 - 0.95 mg/dL 03/25/2023 7:41 AM [facility] GFR Estimate 33(L) >60 mL/min/1. 73m2 03/25/2023 7:41 AM [facility] Calcium 8.6(L) 8.8 - 10.2 mg/dL 03/25/2023 7:41 AM [facility] Glucose 106(H) 70 - 99 mg/dL 03/25/2023 7:41 AM [facility] Blood STRUCTURE OF RIGHT HAND / Unknown Venipuncture / Unknown 03/25/2023 6:54 AM [facility] FI[facility] 03/25/2023 7:22 AM [facility] Bernice Stearns MD LAB - BLOOD ORDER MILE [facility] Lab [address] Lab (1st floor, no room number) [place] [address], [place] [phone] * Magnesium (03/25/2023 6:54 AM [facility] FIRE [facility]OSS) Magnesium 1.8 1.7 - 2.3 mg/dL 03/25/2023 7:42 AM [facility] Blood STRUCTURE OF RIGHT HAND / Unknown Venipuncture / Unknown 03/25/2023 6:54 AM [facility]Y FIRE [facility]OSS 03/25/2023 7:22 AM [facility] Bernice Stearns MD LAB - BLOOD ORDER MILE Performing Organization Address [facility] Co de Phone Number [facility] Lab [address] Lab (1st floor, no room number) [place] [address], [place] [phone] * EKG 12-lead, tracing only (03/24/2023 3:35 PM SAF[facility]Y FIRE BOSS) Systolic Blood Pressure mmHg RADIOLOGY RESULTS Diastolic Blood Pressure mmHg RADIOLOGY RESULTS Ventricular Rate 102 BPM RAD IOLOGY RESULTS Atrial Rate 102 BPM RADIOLOG Y RESULTS ID Interval 178 ms RADIOLOG Y RESULTS QRS Duration 88 ms RADIOLO GY RESULTS QT 354 ms RADIOLOGY RESULTS QTc 461 ms RADIOLOGY RESULTS P [place] 72 degrees RADIOLOGY RESULTS R AXIS 75 degrees RADIOLOGY RESULTS T [place] 74 degrees RADIOLOGY RESULTS Interpretation ECG Sinus tachycardia Possible Left atrial enlargement Cannot rule out Anterior infarct , age undetermined Abnormal ECG No previous ECGs available IVCD in inferior leads Confirmed by MD TERRI, MERRILL ([id number]), publishing editor Tremaine Brown ([id number]) on 03/27/2023 11:15:18 AM RADIOLOGY RESULTS 03/24/2023 3:35 PM S[facility]Y FIRE BOSS 03/27/2023 11:15 AM [facility]OSS Bernice Stearns MD ECG ORDERABLES RADIOLOGY RESULTS * (ABNORMAL) CBC with platelets and differential (03/24/2023 7:04 AM SAFETY FIRE BOSS) WBC Count 14.8(H) 4.0 - 11.0 10e3/uL 03/24/2023 7:25 AM [facility] RBC Count 3.40(L) 3.80 - 5.20 10e6/uL 03/24/2023 7:25 AM [facility] Hemoglobin 10.8(L) 11.7 - 15.7 g/dL 03/24/2023 7:25 AM [facility] Hematocrit 33.7(L) 35.0 - 47.0 % 03/24/2023 7:25 AM [facility] MCV 99 78 - 100 fL 03/24/2023 7:25 AM [facility] MCH 31.8 26.5 - 33.0 pg 03/24/2023 7:25 AM [facility] MCHC 32.0 31.5 - 36.5 g/dL 03/24/2023 7:25 AM [facility] RDW 13.6 10.0 - 15.0 % 03/24/2023 7:25 AM [facility] Platelet Count 210 150 - 450 10e3/uL 03/24/2023 7:25 AM [facility] % Neutrophils 85 % 03/24/2023 7:25 AM [facility] % Lymphocytes 5 % 03/24/2023 7:25 AM [facility] % Monocytes 10 % 03/24/2023 7:25 AM [facility] % Eosinophils 0 % 03/24/2023 7:25 AM [facility] % Basophils 0 % 03/24/2023 7:25 AM [facility] % Immature Granulocytes 0 % 03/24/2023 7:25 AM [facility] NRBCs per 100 WBC 0 <1 /100 023 7:25 AM [facility] Absolute Neutrophils 12.6(H) 1.6 - 8.3 10e3/uL 03/24/2023 7:25 AM [facility] Absolute Lymphocytes 0.7(L) 0.8 - 5.3 10e3/uL 03/24/2023 7:25 AM [facility] Absolute Monocytes 1.5(H) 0.0 - 1.3 10e3/uL 03/24/2023 7:25 AM [facility] Absolute Eosinophils 0.0 0.0 - 0.7 10e3/uL 03/24/2023 7:25 AM [facility] Absolute Basophils 0.0 0.0 - 0.2 10e3/uL 03/24/2023 7:25 AM [facility] Absolute Immature Granulocytes 0.1 <=0.4 10e3/uL 03/24/2023 7:25 AM [facility] Absolute NRBCs 0.0 10e3/uL 03/24/2023 7:25 AM [facility] Blood BLOOD SPECIMEN / Unknown Venipuncture / Unknown 03/24/2023 7:04 AM SAFETY FIRE BOSS 03/24/2023 7:22 AM SAFETY FIRE BOSS Cody Villarreal MD LAB - BLOOD ORDERABL ES [facility] Lab [address] Lab (1st floor, no room number) [place] [address], [facility] [phone] * (ABNORMAL) Phosphorus (03/24/2023 7:04 AM SAFETY FIRE BOSS) Phosphorus 4.7(H) 2.5 - 4.5 mg/dL 03/24/2023 7:44 AM [facility] Blood BLOOD SPECIMEN / Unknown Venipuncture / Unknown 03/24/2023 7:04 AM S[facility]ETY FIRE BOSS 03/24/2023 7:22 AM [facility] FIRE BOSS Cody Villarreal MD LAB - BLOOD ORDERABL ES [facility] Lab [address] Lab (1st floor, no room number) [place] [address], [facility] [phone] * (ABNORMAL) Hepatic function panel (03/24/2023 7:04 AM SAFETY FIRE BOSS) Protein Total 6.1(L) 6.4 - 8.3 g/dL 03/24/2023 7:44 AM [facility] Albumin 3.2(L) 3.5 - 5.2 g/dL 03/24/2023 7:44 AM [facility] Bilirubin Total 0.8 <=1.2 mg/dL 03/24/2023 7:44 AM [facility] Alkaline Phosphatase 113 40 - 150 U/L 03/24/2023 7:44 AM [facility] Comment:Reference intervals for this test were updated on 03/14/2023 to more accurately reflect our healthy population. There may be differences in the flagging of prior results with similar values performed with this method. Interpretation of those prior results can be made in the context of the updated reference intervals. AST 64(H) 0 - 45 U/L 03/24/2023 7:44 AM [facility] Comment:Reference intervals for this test were updated on 10/10/2022 to more accurately reflect our healthy population. There may be differences in the flagging of prior results with similar values performed with this method. Interpretation of those prior results can be made in the context of the updated reference intervals. ALT 58(H) 0 - 50 U/L 03/24/2023 7:44 AM [facility] Comment:Reference intervals for this test were updated on 10/10/2022 to more accurately reflect our healthy population. There may be differences in the flagging of prior results with similar values performed with this method. Interpretation of those prior results can be made in the context of the updated reference intervals. Bilirubin Direct 0.35(H) 0.00 - 0.30 mg/dL 03/24/2023 7:44 AM [facility] Blood BLOOD SPECIMEN / Unknown Venipuncture / Unknown 03/24/2023 7:04 AM SAFETY FIRE BOSS 03/24/2023 7:22 AM SAFETY FIRE BOSS Cody Villarreal MD LAB - BLOOD ORDERABL ES LABORATORY [facility] [address] [facility] (1st floor, no room number) [place] [address], [facility] [phone] * (ABNORMAL) Basic metabolic panel (03/24/2023 7:04 AM SAFETY FIRE BOSS) Sodium 136 135 - 145 mmol/L 03/24/2023 7:44 AM [facility] Comment:Reference intervals for this test were updated on 01/24/2023 to more accurately reflect our healthy population. There may be differences in the flagging of prior results with similar values performed with this method. Interpretation of those prior results can be made in the context of the updated reference intervals. Potassium 4.5 3.4 - 5.3 mmol/L 03/24/2023 7:44 AM [facility] Chloride 101 98 - 107 mmol/L 03/24/2023 7:44 AM [facility] Carbon Dioxide (CO2) 24 22 - 29 mmol/L 03/24/2023 7:44 AM [facility] Anion Gap 11 7 - 15 mmol/L 03/24/2023 7:44 AM [facility] Urea Nitrogen 26.1(H) 8.0 - 23.0 mg/dL 03/24/2023 7:44 AM [facility] Creatinine 1.06(H) 0.51 - 0.95 mg/dL 03/24/2023 7:44 AM [facility] GFR Estimate 54(L) >60 mL/min/1. 73m2 03/24/2023 7:44 AM [facility] Calcium 8.3(L) 8.8 - 10.2 mg/dL 03/24/2023 7:44 AM [facility] Glucose 89 70 - 99 mg/dL 03/24/2023 7:44 AM [facility] Blood BLOOD SPECIMEN / Unknown Venipuncture / Unknown 03/24/2023 7:04 AM S[facility]ETY FIRE BOSS 03/24/2023 7:22 AM S[facility]ETY FIRE BOSS Cody Vlilarreal MD LAB - BLOOD ORDERABL ES RH LABORATORY [facility] Lab [address] Lab (1st floor, no room number) [place] [address], [facility] [phone] * Magnesium (03/24/2023 7:04 AM SAFETY FIRE BOSS) Magnesium 1.7 1.7 - 2.3 mg/dL 03/24/2023 7:46 AM [facility] Blood BLOOD SPECIMEN / Unknown Venipuncture / Unknown 03/24/2023 7:04 AM S[facility]ETY FIRE BOSS 03/24/2023 7:22 AM [facility]Y FIRE BOSS Cody Villarreal MD LAB - BLOOD ORDERABL ES [facility] Acute Care Lab [address] Lab (1st floor, no room number) [place] [address], [facility] [phone] * XR Abdomen Port 1 View (03/24/2023 12:29 AM SAFETY FIRE BOSS) Anatomical Region Laterality Modality Abdomen/Pelvis Digital Radiogra phy 03/24/2023 12:2 9 AM SAFETY FIRE BOSS Impressions 03/24/2023 12:31 AM SAFETY FIRE BOSS IMPRESSION: NG tube side-port is at the EG junction and should be advanced approximately 8 cm. Prior postoperative changes. Normal bowel gas pattern. Significant thoracolumbar curvature convex to the left. Narrative 03/24/2023 12:31 AM SAFETY FIRE BOSS EXAM: XR ABDOMEN PORT 1 VIEW LOCATION: [facility] DATE: 03/24/2023 INDICATION: confirm NG placement for decompression COMPARISON: None. Procedure Note Davy Arnold MD - 03/24/2023 EXAM: XR ABDOMEN PORT 1 VIEW LOCATION: [facility] DATE: 03/24/2023 INDICATION: confirm NG placement for decompression COMPARISON: None. IMPRESSION: NG tube side-port is at the EG junction and should be advancedapproximately 8 cm. Prior postoperative changes. Normal bowel gas pattern.Significant thoracolumbar curvature convex to the left. Cody Villarreal MD IMG DIAGNOSTIC IMAGI NG ORDERABLES * Magnesium (03/23/2023 6:19 AM SAFETY FIRE BOSS) Magnesium 1.8 1.7 - 2.3 mg/dL 03/23/2023 7:44 AM [facility] LABORATORY Blood STRUCTURE OF LEFT UPPER LIMB / Unknown Venipuncture / Unknown 03/23/2023 6:19 AM SAFETY FIRE BOSS 03/23/2023 6:34 AM SAFETY FIRE BOSS Bernice Stearns MD LAB - BLOOD ORDER MILE [facility] LAB[facility]AT[facility] Lab [address] Lab (1st floor, no room number) [place] [address], [facility] [phone] * Potassium (03/23/2023 6:19 AM SAFETY FIRE BOSS) Potassium 4.3 3.4 - 5.3 mmol/L 03/23/2023 7:32 AM [facility] FI[facility] Blood STRUCTURE OF LEFT UPPER LIMB / Unknown Venipuncture / Unknown 03/23/2023 6:19 AM SAFETY FIRE BOSS 03/23/2023 6:34 AM SAFETY FIRE BOSS Bernice Stearns MD LAB - BLOOD ORDER MILE Performing Organization Address [facility]/State/ZIP Co de Phone Number LABORATORY [facility] Lab [address] Lab (1st floor, no room number) [place] [address], [facility] [phone] * (ABNORMAL) CBC with platelets (03/23/2023 6:19 AM [employer]) WBC Count 9.4 4.0 - 11.0 10e3/uL 03/23/2023 6:37 AM [facility] RBC Count 3.76(L) 3.80 - 5.20 10e6/uL 03/23/2023 6:37 AM [facility] Hemoglobin 11.8 11.7 - 15.7 g/dL 03/23/2023 6:37 AM [facility] Hematocrit 36.6 35.0 - 47.0 % 03/23/2023 6:37 AM [facility] MCV 97 78 - 100 fL 03/23/2023 6:37 AM [facility] MCH 31.4 26.5 - 33.0 pg 03/23/2023 6:37 AM [facility] [facility] MCHC 32.2 31.5 - 36.5 g/dL 03/23/2023 6:37 AM [facility] RDW 13.6 10.0 - 15.0 % 03/23/2023 6:37 AM [facility] Platelet Count 256 150 - 450 10e3/uL 03/23/2023 6:37 AM [facility] Blood STRUCTURE OF LEFT UPPER LIMB / Unknown Venipuncture / Unknown 03/23/2023 6:19 AM [employer] 03/23/2023 6:34 AM [employer] Radha Blood MD LAB - BLOOD ORDERABL ES [facility] [address] Lab (1st floor, no room number) [place] [address] [phone] * (ABNORMAL) Comprehensive metabolic panel (03/23/2023 6:19 AM [employer]) Pathologist [facility] Sodium 137 135 - 145 mmol/L 03/23/2023 6:55 AM [facility] Comment:Reference intervals for this test were updated on 01/24/2023 to more accurately reflect our healthy population. There may be differences in the flagging of prior results with similar values performed with this method. Interpretation of those prior results can be made in the context of the updated reference intervals. Potassium 4.3 3.4 - 5.3 mmol/L 03/23/2023 6:55 AM [facility] Carbon Dioxide (CO2) 24 22 - 29 mmol/L 03/23/2023 6:55 AM [facility] Anion Gap 10 7 - 15 mmol/L 03/23/2023 6:55 AM [facility] Urea Nitrogen 20.3 8.0 - 23.0 mg/dL 03/23/2023 6:55 AM [facility] Creatinine 0.91 0.51 - 0.95 mg/dL 03/23/2023 6:55 AM [facility] GFR Estimate 65 >60 mL/min/1. 73m2 03/23/2023 6:55 AM [facility] Calcium 8.4(L) 8.8 - 10.2 mg/dL 03/23/2023 6:55 AM [facility] Chloride 103 98 - 107 mmol/L 03/23/2023 6:55 AM [facility] Glucose 102(H) 70 - 99 mg/dL 03/23/2023 6:55 AM [facility] Alkaline Phosphatase 140 40 - 150 U/L 03/23/2023 6:55 AM [facility] Comment:Reference intervals for this test were updated on 03/14/2023 to more accurately reflect our healthy population. There may be differences in the flagging of prior results with similar values performed with this method. Interpretation of those prior results can be made in the context of the updated reference intervals. AST 114(H) 0 - 45 U/L 03/23/2023 6:55 AM [facility] Comment:Reference intervals for this test were updated on 10/10/2022 to more accurately reflect our healthy population. There may be differences in the flagging of prior results with similar values performed with this method. Interpretation of those prior results can be made in the context of the updated reference intervals. ALT 95(H) 0 - 50 U/L 03/23/2023 6:55 AM [facility] Comment:Reference intervals for this test were updated on 10/10/2022 to more accurately reflect our healthy population. There may be differences in the flagging of prior results with similar values performed with this method. Interpretation of those prior results can be made in the context of the updated reference intervals. Protein Total 6.7 6.4 - 8.3 g/dL 03/23/2023 6:55 AM [facility] Albumin 3.7 3.5 - 5.2 g/dL 03/23/2023 6:55 AM [facility] Bilirubin Total 0.7 <=1.2 mg/dL 03/23/2023 6:55 AM [facility] Blood STRUCTURE OF LEFT UPPER LIMB / Unknown Venipuncture / Unknown 03/23/2023 6:19 AM [facility] 03/23/2023 6:34 AM [facility] Radha Blood MD LAB - BLOOD ORDERABL ES [facility] [address] Lab (1st floor, no room number) [place] [address], [facility] [phone] * Lactic acid whole blood (03/22/2023 5:05 PM SAFET[facility] FI[facility] B[facility]) Lactic Acid 0.9 0.7 - 2.0 mmol/L 03/22/2023 5:22 PM [facility] Blood STRUCTURE OF RIGHT UPPER LIMB / Unknown Venipuncture / Unknown 03/22/2023 5:05 PM [facility] 03/22/2023 5:11 PM [facility] Radha Blood MD LAB - BLOOD ORDERABL ES [facility] [address] Lab (1st floor, no room number) [place] [address], [facility] [phone] * (ABNORMAL) CBC with platelets (03/22/2023 5:05 PM [facility]) WBC Count 8.1 4.0 - 11.0 10e3/uL 03/22/2023 5:15 PM [facility] RBC Count 3.57(L) 3.80 - 5.20 10e6/uL 03/22/2023 5:15 PM [facility] Hemoglobin 11.2(L) 11.7 - 15.7 g/dL 03/22/2023 5:15 PM [facility] Hematocrit 34.5(L) 35.0 - 47.0 % 03/22/2023 5:15 PM [facility] MCV 97 78 - 100 fL 03/22/2023 5:15 PM [facility] MCH 31.4 26.5 - 33.0 pg 03/22/2023 5:15 PM [facility] MCHC 32.5 31.5 - 36.5 g/dL 03/22/2023 5:15 PM [facility] RDW 13.4 10.0 - 15.0 % 03/22/2023 5:15 PM [facility] Platelet Count 231 150 - 450 10e3/uL 03/22/2023 5:15 PM [facility] Blood STRUCTURE OF RIGHT UPPER LIMB / Unknown Venipuncture / Unknown 03/22/2023 5:05 PM [facility] 03/22/2023 5:11 PM [facility] Radha Blood MD LAB - BLOOD ORDERABL ES LAB[facility] [address] Lab (1st floor, no room number) [place] [address], [facility] [phone] * (ABNORMAL) Basic metabolic panel (03/22/2023 5:05 PM S[facility] FI[facility] B[facility]) Sodium 134(L) 135 - 145 mmol/L 03/22/2023 5:41 PM [facility] Comment:Reference intervals for this test were updated on 01/24/2023 to more accurately reflect our healthy population. There may be differences in the flagging of prior results with similar values performed with this method. Interpretation of those prior results can be made in the context of the updated reference intervals. Potassium 4.4 3.4 - 5.3 mmol/L 03/22/2023 5:41 PM [facility] Chloride 101 98 - 107 mmol/L 03/22/2023 5:41 PM [facility] Carbon Dioxide (CO2) 28 22 - 29 mmol/L 03/22/2023 5:41 PM [facility] Anion Gap 5(L) 7 - 15 mmol/L 03/22/2023 5:41 PM [facility] Urea Nitrogen 21.3 8.0 - 23.0 mg/dL 03/22/2023 5:41 PM [facility] Creatinine 0.93 0.51 - 0.95 mg/dL 03/22/2023 5:41 PM [facility] GFR Estimate 63 >60 mL/min/1. 73m2 03/22/2023 5:41 PM [facility] Calcium 8.3(L) 8.8 - 10.2 mg/dL 03/22/2023 5:41 PM [facility] Glucose 106(H) 70 - 99 mg/dL 03/22/2023 5:41 PM [facility] Blood STRUCTURE OF RIGHT UPPER LIMB / Unknown Venipuncture / Unknown 03/22/2023 5:05 PM [facility] 03/22/2023 5:11 PM [facility] Radha Blood MD LAB - BLOOD ORDERABL ES LAB[facility] [address] Lab (1st floor, no room number) [place] [address], [facility] [phone] documented in this encounter Visit Diagnoses Diagnosis [...] exceed 4 grams/day. $Given 03/26/2023 1:49 PM [facility] 650 mg acetaminophen (TYLENOL) tablet 650 mg 650 mg, Oral, EVERY 6 HOURS PRN, fever, mild pain, Starting on 03/26/23 at 1612, Maximum acetaminophen dose from all sources = 75 mg/kg/day not to exceed 4 grams/day. artificial saliva (BIOTENE MT) solution 1 spray 1 spray, Swish & Spit, 4 TIMES DAILY PRN, dry mouth, Starting on Mon03/24/23 at 0419 $Given 03/25/2023 1:45 AM [facility] 1 spray $Given 03/24/2023 7:04 PM [facility] 1 spray $Given 03/24/2023 11:49 AM [facility] 1 spray buPROPion (WELLBUTRIN) tablet 100 mg 100 mg, Oral, 2 TIMES DAILY, First dose on Mon03/22/23 at 2000 $Given 03/27/2023 8:26 AM [facility] 100 mg $Given 03/26/2023 7:41 PM [facility] 100 mg $Given 03/26/2023 8:09 AM [facility] 100 mg enoxaparin ANTICOAGULANT (LOVENOX) injection 40 mg 40 mg, Subcutaneous, EVERY 24 HOURS, First dose on 03/25/23 at 1200 $Given 03/26/2023 12:05 PM [facility] 40 mg $Given 03/25/2023 11:58 AM [facility] 40 mg fentaNYL (PF) (SUBLIMAZE) injection 50 [...] HYDROmorphone (DILAUDID)., PACU $Given 03/23/2023 9:44 PM [facility] 50 mcg gabapentin (NEURONTIN) capsule 900 mg 900 mg, Oral, 3 TIMES DAILY, First dose on Mon03/22/23 at 2000 $Given 03/27/2023 8:26 AM [facility] 900 mg $Given 03/26/2023 7:41 PM [facility] 900 mg $Given 03/26/2023 1:49 PM [facility] 900 mg HYDROmorphone (DILAUDID) injection 0.2 mg 0.2 mg, Intravenous, EVERY 3 HOURS PRN, moderate pain, Starting on Mon03/22/23 at 1612 $Given 03/23/2023 2:59 AM [facility] 0.2 mg $Given 03/22/2023 11:17 PM [facility] 0.2 mg $Given 03/22/2023 7:30 PM [facility] 0.2 mg HYDROmorphone (DILAUDID) injection 0.2 mg 0.2 mg, Intravenous, EVERY 2 HOURS PRN, moderate pain, Starting on Heidi 03/23/23 at 0530 $Given 03/25/2023 11:58 AM [facility] 0.2 mg $Given 03/25/2023 1:42 AM [facility] 0.2 mg $Given 03/24/2023 1:28 PM [facility] 0.2 mg HYDROmorphone (DILAUDID) injection 0.4 mg 0.4 mg, Intravenous, EVERY 4 HOURS PRN, severe pain, Starting on Mon03/22/23 at 1612 $Given 03/23/2023 5:59 AM [facility] 0.4 mg HYDROmorphone (DILAUDID) injection 0.4 mg 0.4 mg, Intravenous, EVERY 2 HOURS PRN, severe pain, Starting on Mon03/24/23 at 1400 $Given 03/24/2023 7:05 PM [facility] 0.4 mg HYDROmorphone (PF) (DILAUDID) injection 0.6 mg 0.6 mg, Intravenous, EVERY 2 HOURS PRN, severe pain, Starting on Heidi 03/23/23 at 0930 $Given 03/24/2023 12:58 AM [facility] 0.6 mg $Given 03/23/2023 10:49 PM [facility] 0.6 mg $Given 03/23/2023 2:16 PM [facility] 0.6 mg lactated ringers infusion at 75 mL/hr, Intravenous, CONTINUOUS, Starting on Heidi 03/23/23 at 0900, Until 03/26/23 at 1933 $New Bag 03/26/2023 7:34 AM [facility] 75 mL/hr $New Bag 03/25/2023 6:45 PM [facility] 75 mL/hr $New Bag 03/25/2023 4:44 AM [facility] 75 mL/hr levothyroxine (SYNTHROID/LEVOTHROID) tablet 137 mcg 137 mcg, Oral, EVERY MORNING BEFORE BREAKFAST, First dose on Mon03/27/23 at 0730, Separate oral administration of iron- or calcium-containing products and levothyroxine by at least 4 hours. $Given 03/27/2023 6:53 AM [facility] 137 mcg naloxone (NARCAN) injection 0.2 mg [...] Mon03/26/23 at 1137 $Given 03/27/2023 6:53 AM [facility] 2.5 m g $Given 03/27/2023 1:58 AM [facility] 2.5 mg pantoprazole (PROTONIX) IV push injection 40 mg 40 mg, Intravenous, DAILY WITH BREAKFAST, First dose on Mon03/22/23 at 1930, Irritant. $Given 03/27/2023 8:2 5 AM [facility] 40 mg $Given 03/26/2023 8:09 AM [facility] 40 mg $Given 03/25/2023 9:17 AM [facility] 40 mg polyethylene glycol (MIRALAX) Packet 17 [...] bowel clean out. $Given 03/27/2023 8:26 AM [facility] 17 g $Given 03/26/2023 7:42 PM [facility] 17 g $Given 03/26/2023 8:09 AM [facility] 17 g prochlorperazine (COMPAZINE) injection 5 mg [...] IV dormant line $Given 03/25/2023 1:43 AM [facility] 3 mLs $Given 03/23/2023 9:37 AM [facility] 3 mLs $Given 03/23/2023 3:00 AM [facility] 3 mLs sodium chloride (PF) 0.9% PF flush 3 mL 3 mL, Intracatheter, EVERY 8 HOURS, First dose on Heidi 03/23/23 at 2230, to lock peripheral IV dormant line $Given 03/26/2023 1:51 PM [facility] 3 mLs sodium chloride (PF) 0.9% PF flush 3 mL 3 mL, Intracatheter, EVERY 1 MIN PRN, line flush, other, to ensure patency or to lock dormant line, Starting on Mon03/23/23 at 2223 $Given 03/27/2023 8:26 AM [facility] 3 mLs sodium chloride 0.9% BOLUS 1,000 mL Intravenous, 1,000 mL, ONCE, at 100 mL/hr, Administer over 10 Hours, On Mon03/22/23 at 1630, For 1 dose $New Bag 03/22/2023 5:20 PM [facility] 1,000 mLs 100 mL/hr venlafaxine (EFFEXOR) tablet 75 mg 75 mg, Oral, 3 TIMES DAILY, First dose on Mon03/22/23 at 2000 $Given 03/27/2023 8:26 AM [facility] 75 mg $Given 03/26/2023 7:41 PM [facility] 75 mg $Given 03/26/2023 1:49 PM [facility] 75 mg documented in this encounter Active and Recently Administered Medications Times are shown in [facility]. Scheduled Medication Order 03/25/2023 03/26/2023 03/27/2023 buPROPion [...] 2 MIN PRN, opioid reversal, Starting on [facility] 03/22/23 at 1629, Administer intravenous route [...] 2 MIN PRN, opioid reversal, Starting on [facility] 03/22/23 at 1629, Administer intramuscular if [...] stools. documented in this encounter Care Teams Graduate Teacher Education Relationship Specialty Start Date End Date Juan Rojas MD [place] [id number] [place] [address] PCP - General Family Medicine 03/23/23 documented as of this encounter
--- OUTSIDE RECORDS SUMMARY | 2023-05-26 16:14 | XMS_ITS | Referral Summary ---
Author Name Unknown Organization [facility] Address [address] [place] [id number] Care Team Providers Care Resource Analyst Name Role Phone Unavailable Primary Care Provider Unavailabl e Source Comments Patient records contain information from all sites at [facility]. For routine questions regarding patient records, call [phone] during business hours, M-F 8:00 AM - 5:00 PM Central Time. Record requests for emergency care only can be directed to [phone] at any time.[facility] Allergies Active Allergy Reactions Criticality Noted [...] Sign Reading Time Taken Comments Blood Pressure 115/66 05/24/2023 8:16 PM MACHINE FORMER Pulse 87 05/24/2023 8:16 PM MACHINE FORMER Temperature - - Respiratory Rate 18 05/24/2023 8:16 PM MACHINE FORMER Oxygen Saturation 96% 05/24/2023 8:16 PM MACHINE FORMER Inhaled Oxygen Concentration - - Weight 104 kg (229 lb 8 oz) 01/17/2018 2:30 PM C DT Height 160.7 cm (5' 3.27) 01/17/2018 2:30 PM CD T Body Mass Index 40.31 01/17/2018 2:30 PM CDT Plan of Treatment Not on file Medical Devices Implanted Type Area Automatic Dispenser Mechanic Device Identifier Shelf Expiration Date Model / Serial / Lot Patch Strattice Mesh Pilable 8x16 - [employer] [id number] Implanted:Qty: 1 on 11/19/2009 Mesh or Patch Other/Legacy - See Implant Description EdRover (Use Allergan) Description:Device Manufactu rer - GrowBLOX. Body Location - Other. Not Applicable. Device Status Text - [id number]. Mesh Ultrapro 12 X12 In ([id number]) - [place] [id number] Implanted:Qty: 2 on 05/09/2011 Mesh or Patch Paperless Post Description:Device Manufactu rer - eoSemi. Device Status Text - [id number]. Conversions - Default Historical Implant Device Implanted:08/2015 (Quantity not on file) Orthopedic Other Right: First Toe Description:Body Location - Thumb R. Knees. GreatToe R. Device Status Text - OrthoOthr. Procedures Procedure Name Priority Date/Time Associated Diagnosis Comments OUTSIDE CT BODY Routine 05/24/2023 5:30 PM MACHINE FORMER from Last 3 Months Results * CT ABDOMEN PELVIS W CON-Outside CT Body (05/24/2023 5:30 PM MACHINE FORMER) 05/24/2023 5:27 PM MACHINE FORMER Narrative [facility] - 05/24/2023 7:57 PM MACHINE FORMER This order has been created and auto-finalized to support the import of outside images. If available, original interpretation can be found on the Media Tab in Chart Review, in Document Viewer, or as an image in QREADS. If a re-interpretation or overread is required please follow defined workflow. ?? 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 See document viewer. Advance Directives 07/13/2015 12:00 AM Leg acy document. See document viewer.
--- OUTSIDE RECORDS SUMMARY | 2023-05-26 16:14 | XMS_ITS ---
Author Name Unknown Organization [facility] Address [address] [place] [address] Care Team Providers Care Marina Porter Name Role Phone Unavailable Unavailable Unavailable Surgery Details Not on file Complications Check Surgery Details section. Procedure Estimated Blood Loss Check Surgery Details section. Procedure Findings Check Surgery Details section. Procedure Specimens Taken Check Surgery Details section.
--- OUTSIDE RECORDS SUMMARY | 2023-05-26 16:14 | XMS_ITS | Encounter Summary ---
Author Name Unknown Organization [facility] Address [address] [place] [address]. [place] [address] Care Team Providers Care Hat And Cap Parts Cutter Hand Name Role Phone Unavailable Primary Care Provider Unavailabl e Encounter Details Date Type Department Care Team (Late st Contact Info) Description 03/22/2023 Telephone [facility] Services - General Medicine & Pediatrics [address] [place] [phone] Louise Younger PA-C [address] [place], [place] [id number] Social History Tobacco Use Types Packs/Day Years [...] Louise Younger PA-C - 03/22/2023 2:11 PM DIGITAL MEDIA SPECIALIST Direct admit from Dr. Connor, [place] [facility] Gail Huynh 77 yo F presents with abd pain. Hx ostomy, total colectomy at [place]. No output for couple days, partial SBO on CT, maybe stricture at ostomy site. VSS, labs unremarkable. General surgery and CRS at [facility] contacted by ED provider prior to direct admit. Louise Younger PA-C TAL MEDIA SPECIALIST documented in this encounter Plan of Treatment Not on file documented as of this encounter Visit Diagnoses Not on filedocumented in this encounter
--- OUTSIDE RECORDS SUMMARY | 2023-05-26 16:14 | XMS_ITS | Clinical Summary ---
Author Name Unknown Organization [employer] [facility] Address [place], [place] [address] Care Team Providers Care Inventory Analyst Name Role Phone Prabah Nice Primary Care Provider [phone] Allergies Active Allergy Reactions Criticality Noted Date [...] Date Type Department Care Team Description 05/24/2023 Orders Only [facility] Scanner 1 scan: (1-Ord) [facility], CT ABDOMEN PELVIS W CON, 05/24/2023 05/24/2023 Nurse Triage [facility] [address] [place] [address] Prabha Nice PA Abdominal Pain 05/24/2023 Telephone [facility] [address] [facility] [address] Prabha Nice PA Error-please disregard 05/19/2023 1:00 PM [facility] SEWER Ancillary Procedure [facility] [address] [place] [address] 05/19/2023 Travel 05/11/2023 9:50 AM BRIEFCASE SEWER Office Visit [facility] [address] [facility] [address] Prabha Nice PA Gi Problem (Having trouble with stomach-taking Lactaid tabs-can't eat very well-also has an ostomy bag that keeps getting plugged) 05/11/2023 Travel 04/28/2023 Telephone [facility] [address] [place] [address] Prabha Nice PA Appointment Request (NOT FEELING WELL AFTER SURGERY) from Last 3 Months Immunizations Name Administration Dates Next Due COVID-19 Vaccine Spikevax (M oderna 50mcg/0.5mL) 12YO+ [id number] Formula PF 05/11/2023 COVID-19 vaccine (Crowdfynd-Bio NTech 30mcg/0.3mL) PF, MDV 02/22/2021 Influenza, High-dose [...] Comments Blood Pressure 132/78 05/11/2023 10:00 AM B[facility]EFCASE SEWER Pulse 81 05/11/2023 10:00 AM B[facility]EFCASE SEWER Temperature - - Respiratory Rate - - Oxygen Saturation 99% 05/11/2023 10:00 AM B[facility]EFCASE SEWER Inhaled Oxygen Concentration - - Weight 91.6 kg (202 lb) 05/11/2023 10:00 AM B[facility]EFCASE SEWER Height 158.5 cm (5' 2.4) 05/11/2023 10:00 AM CS T Body Mass Index 36.47 05/11/2023 10:00 AM BRIEFCASE SEWER Plan of Treatment Upcoming Encounters Date Type Department Care Team (Late st Contact Info) Description 06/05/2023 11:00 AM BRIEFCASE SEWER Office Visit [facility] [address] [place] [address] Health Maintenance Due Date Last Done Comments [...] Additional history exists COVID-19 vaccine series Completed 05/11/19, 03/09/2022, 02/22/2021, Additional history exists Procedures Procedure Name Priority Date/Time Associated Diagnosis Comments SCAN-CT INTERPRETATION 12:[address] ABDOMEN PELVIS WO Routine 05/19/2023 1:36 PM BRIEFCASE SEWER Ileostomy status (HC) Abdominal pain, RLQ (right lower quadrant) CBC WITH AUTO DIFFERENTIAL Routine 05/11/2023 10:57 AM BRIEFCASE SEWER Ileostomy status (HC) Abdominal pain, RLQ (right lower quadrant) C-REACTIVE PROTEIN Routine 05/11/2023 10 :57 AM BRIEFCASE SEWER Ileostomy status (HC) Abdominal pain, RLQ (right lower quadrant) LIPASE Routine 05/11/2023 10:57 AM BRIEFCASE SEWER Ileostomy status (HC) Abdominal pain, RLQ (right lower quadrant) COMP METABOLIC PANEL Routine 05/11/2023 10:57 AM BRIEFCASE SEWER Ileostomy status (HC) Abdominal pain, RLQ (right lower quadrant) CBC WITH AUTO DIFFERENTIAL Routine 05/11/2023 10:57 AM BRIEFCASE SEWER Ileostomy status (HC) Abdominal pain, RLQ (right lower quadrant) from Last 3 Months Results * SCAN-CT INTERPRETATION (05/24/2023 12:00 AM BRIEFCASE SEWER) Anatomical Region Laterality Modality Other Scanner OTHER * CT ABDOMEN PELVIS WO (05/19/2023 1:36 PM BRIEFCASE SEWER) Anatomical Region Laterality Modality Abdomen, Pelvis, AORTA, LIVER, SPLEEN Computed Tomography 05/19/2023 2:14 PM BRIEFCASE SEWER Narrative 05/19/2023 2:14 PM BRIEFCASE SEWER For Patients: ??As a result of the [...] For Patients: As a result of the Cures Act, medical imagingexams and procedure reports [...] CBC WITH AUTO DIFFERENTIAL (05/11/2023 10:57 AM BRIEFCASE SEWER) WHITE BLOOD COUNT 7.5 4.5 - 11.0 thou/cu mm 05/11/2023 11:03 AM [facility] RED BLOOD COUNT 3.90(L) 4.00 - 5.20 mil/cu mm 05/11/2023 11:03 AM [facility] HEMOGLOBIN 12.1 12.0 - 16.0 g/dL 05/11/2023 11:03 AM [facility] HEMATOCRIT 37.1 33.0 - 51.0 % 05/11/2023 11:03 AM [facility] MCV 95 80 - 100 fL 05/11/2023 11:03 AM [facility] MCH 31.0 26.0 - 34.0 pg 05/11/2023 11:03 AM [facility] MCHC 32.6 32.0 - 36.0 g/dL 05/11/2023 11:03 AM [facility] RDW 15.2 11.5 - 15.5 % 05/11/2023 11:03 AM [facility] PLATELET COUNT 367 140 - 440 thou/cu mm 05/11/2023 11:03 AM [facility] MPV 9.1 6.5 - 11.0 fL 05/11/2023 11:03 AM [facility] % NEUT 51.3 % 05/11/2023 11:03 AM [facility] % LYMPH 35.9 % 05/11/2023 11:03 AM [facility] % MONO 11.2 % 05/11/2023 11:03 AM [facility] % EOS 0.7 % 05/11/2023 11:03 AM [facility] % BASO 0.9 % 05/11/2023 11:03 AM [facility] ABSOLUTE NEUTROPHILS 3.8 1.7 - 7.0 thou/cu mm 05/11/2023 11:03 AM [facility] ABSOLUTE LYMPHOCYTES 2.7 0.9 - 2.9 thou/cu mm 05/11/2023 11:03 AM [facility] ABSOLUTE MONOCYTES 0.8 <0.9 thou/cu mm 05/11/2023 11:03 AM [facility] ABSOLUTE EOSINOPHILS 0.1 <0.5 thou/cu mm 05/11/2023 11:03 AM [facility] ABSOLUTE BASOPHILS 0.1 <0.3 thou/cu mm 05/11/2023 11:03 AM [facility] Blood BLOOD SPECIMEN / Unknown Venipuncture / Unknown 05/11/2023 10:57 AM B[facility]EFCASE SEWER 05/11/2023 10:59 AM BRIEFCASE SEWER Prabha GORE HEMATOLOGY [address] [address], * C-REACTIVE PROTEIN (05/11/2023 10:57 AM BRIEFCASE SEWER) [facility] C-REACTIVE PROTEIN <0.3 <0.5 mg/dL 05/11/2023 5:10 PM BRIEFCASE SEWER [facility] Blood BLOOD SPECIMEN / Unknown Venipuncture / Unknown 05/11/2023 10:57 AM B[facility]EFCASE SEWER 05/11/2023 10:59 AM BRIEFCASE SEWER Prabha GORE CHEMISTRY [facility] [address] [place] [address], * (ABNORMAL) LIPASE (05/11/2023 10:57 AM BRIEFCASE SEWER) [facility] LIPASE 65.4(H) 13.0 - 60.0 IU/L 05/11/2023 3:41 PM BRIEFCASE SEWER [facility] Blood BLOOD SPECIMEN / Unknown Venipuncture / Unknown 05/11/2023 10:57 AM B[facility]EFCASE SEWER 05/11/2023 10:59 AM BRIEFCASE SEWER Prabha GORE CHEMISTRY [facility] [address] [place] [address], * (ABNORMAL) COMP METABOLIC PANEL (05/11/2023 10:57 AM BRIEFCASE SEWER) [facility] SODIUM 137 136 - 145 mmol/L 05/11/2023 3:41 PM BRIEFCASE SEWER [facility] POTASSIUM 5.3(H) 3.5 - 5.1 mmol/L 05/11/2023 3:41 PM BRIEFCASE SEWER [facility] CHLORIDE 98 98 - 107 mmol/L 05/11/2023 3:41 PM BRIEFCASE SEWER [facility] CO2,TOTAL 28 22 - 29 mmol/L 05/11/2023 3:41 PM BRIEFCASE SEWER [facility] ANION GAP 11 5 - 18 05/11/2023 3:41 PM [facility] GLUCOSE 120(H) 70 - 99 mg/dL 05/11/2023 3:41 PM [facility] CALCIUM 10.0 8.8 - 10.2 mg/dL 05/11/2023 3:41 PM [facility] BUN 22 8 - 23 mg/dL 05/11/2023 3:41 PM [facility] CREATININE 1.40(H) 0.50 - 0.90 mg/dL 05/11/2023 3:41 PM [facility] BUN/CREAT RATIO 16 10 - 20 3:41 PM [facility] eGFR 39(L) >90 mL/min/1.7 3m2 05/11/2023 3:41 PM [facility] Comment:As of 2021, eG FR is calculated by the CKD-EPI creatinine equation without race adjustment. ??eGFR can be influenced by muscle mass, exercise, and diet. ??The reported eGFR is an estimation only and is only applicable if the renal function is stable. ALBUMIN 4.5 4.0 - 4.9 g/dL 05/11/2023 3:41 PM [facility] PROTEIN,TOTAL 7.4 6.0 - 8.0 g/dL 05/11/2023 3:41 PM [facility] BILIRUBIN,TOTAL 0.4 0.0 - 1.2 mg/dL 05/11/2023 3:41 PM [facility] ALK PHOSPHATASE 111(H) 35 - 104 IU/L 05/11/2023 3:41 PM [facility] ALT (SGPT) 24 10 - 35 IU/L 05/11/2023 3:41 PM [facility] AST (SGOT) 34 10 - 35 IU/L 05/11/2023 3:41 PM [facility] Blood BLOOD SPECIMEN / Unknown Venipuncture / Unknown 05/11/2023 10:57 AM BRIEFCASE SEWER 05/11/2023 10:59 AM BRIEFCASE SEWER Prabha GORE CHEMISTRY [facility] [address] [place] [address], from Last 3 Months Care Teams Inventory Analyst Relationship Specialty Start Date End Date Prabha Nice PA [address] [place] [address] PCP - General Physician Hay Baler 05/18/23
--- OUTSIDE RECORDS SUMMARY | 2023-05-26 16:14 | XMS_ITS | Continuity of Care Document ---
Author Name [facility] Organization [facility] Care Team Providers Care Cabana Attendant Name Role Phone [facility] Unavailable Unavailable Medications Combined list of outpatient medications from Department of Defense and Veterans Affairs facilities.Medications provided include 1) outpatient medications from the last 15 months, and 2) patient-reported medications. Medication Details Route Status Patient Instructions Prescription Expires Prescription Number Last Dispense Date Ordering Provider Order Date Source atorvastati n calcium ([email or web address]) 1000 TABLET in 1 BOTTLE Active [id number] 2023 Pharmac y Data Transac tion Service Facilit y BUPROPION HCL (BUPROPION HCL), 100MG, TABLET, ORAL, APOTEX ORION, 100 ea. BOTTLE Active [id number] 2023 Pharmac y Data Transac tion Service Facilit y CETIRIZINE HCL (CETIRIZINE HCL), 5MG, TABLET, ORAL, MYLAN, 100 ea. BOTTLE Active [id number] 2023 Pharmac y Data Transac tion Service Facilit y FUROSEMIDE (FUROSEMIDE ), 20MG, TABLET, ORAL, [facility] 1000 ea. BOTTLE Active [id number] 2023 Pharmac y Data Transac tion Service Facilit y GABAPENTIN (gabapentin ), 600 MG, TABLET, ORAL, [facility], 500 ea. BOTTLE Active [id number] 2023 Pharmac y Data Transac tion Service Facilit y HYDROCHLORO THIAZIDE (HYDROCHLOR OTHIAZIDE), 12.5 MG, TABLET, ORAL, [facility], 1000 ea. BOTTLE Active [id number] 2023 Pharmac y Data Transac tion Service Facilit y LEVOTHYROXI NE SODIUM (levothyrox ine sodium), 137 MCG, TABLET, ORAL, [facility], 1000 ea. BOTTLE Active [id number] 01/12/ 2024 Pharmac y Data Transac tion Service Facilit y LOSARTAN POTASSIUM (LOSARTAN POTASSIUM), 100 MG, TABLET, ORAL, [facility], 1000 ea. BOTTLE Active [id number] 2023 Pharmac y Data Transac tion Service Facilit y OMEPRAZOLE (omeprazole ), 40 MG, CAPSULE DR, ORAL, [employer] [facility], 1000 ea. BOTTLE Active [id number] 2023 Pharmac y Data Transac tion Service Facilit y TRAMADOL HCL (tramadol HCl), 50 MG, TABLET, ORAL, [facility], 500 ea. BOTTLE Active [id number] 2023 Pharmac y Data Transac tion Service Facilit y VENLAFAXINE HCL (venlafaxin e HCl), 75 MG, TABLET, ORAL, [facility], 100 ea. BOTTLE Active [id number] 2023 Pharmac y Data Transac tion Service Facilit y Social History Combined list of available smoking, tobacco, and other social history from Department of Defense and Veterans Affairs facilities. Social History Type Response Date Comment Sour e This section is an empty social history section. DoD
--- OUTSIDE RECORDS SUMMARY | 2023-05-26 16:14 | XMS_ITS | Encounter Summary ---
Author Name Unknown Organization [facility] Address [address] [place] [address] Care Team Providers Care Machinist Bench Name Role Phone Unavailable Primary Care Provider Unavailabl e Encounter Details Date Type Department Care Team (Late st Contact Info) Description 07/18/2022 Clinical Communication Division of Colon and Rectal Surgery in [place], [place] [address] [place] [address] Prescheduling, Provider Social History Tobacco Use Types [...]
--- OUTSIDE RECORDS SUMMARY | 2023-05-26 16:14 | XMS_ITS | Clinical Summary ---
Author Name Unknown Organization [facility] Address [address] [place] [address] Care Team Providers Care Bible Reader Name Role Phone Unavailable Primary Care Provider Unavailabl e Source Comments Patient records contain information from all sites at [facility]. For routine questions regarding patient records, call [phone] during business hours, M-F 8:00 AM - 5:00 PM Central Time. Record requests for emergency care only can be directed to [phone] at any time.[facility] Allergies Active Allergy Reactions Criticality Noted [...] Comments Blood Pressure 115/66 05/24/2023 8:16 PM [facility] Pulse 87 05/24/2023 8:16 PM [facility] Temperature - - Respiratory Rate 18 05/24/2023 8:16 PM [facility] Oxygen Saturation 96% 05/24/2023 8:16 PM [facility] Inhaled Oxygen Concentration - - Weight 104 [...] Hepatitis C Screening Completed 01/01/2006 Mammogram Discontinued 06/23/2020, 05/01, 04/19/2018, Additional history exists Influenza Vaccine Completed 02/06/2023, , 02/15/2021, Additional history exists COVID-19 Vaccine Completed 05/11/2023, 12/2021, 02/22/2021, Additional history exists Medical Devices Implanted Type Area Construction Supervisor/Carpenter Device Identifier Shelf Expiration Date Model / Serial / Lot Patch Strattice Mesh Pilable 8x16 - [employer] [id number] Implanted:Qty: 1 on 11/19/2009 Mesh or Patch Other/Legacy - See Implant Description RPost (Use Allergan) Description:Device Manufactu rer - [id number]. Body Location - Other. Not Applicable. Device Status Text - [id number]. Mesh Ultrapro 12 X12 In ([id number]) - [place] [id number] Implanted:Qty: 2 on 05/09/2011 Mesh or Patch e-SENS Description:Device Manufactu rer - [employer]ash[employer]. Device Status Text - [id number]. Conversions - Default Historical Implant Device Implanted:08/2015 (Quantity not on file) Orthopedic Other Right: First Toe Description:Body Location - Thumb R. Knees. GreatToe R. Device Status Text - OrthoOthr. Procedures Procedure Name Priority Date/Time Associated Diagnosis Comments OUTSIDE CT BODY Routine 05/24/2023 5:30 PM [facility] from Last 3 Months Results * CT ABDOMEN PELVIS W CON-Outside CT Body (05/24/2023 5:30 PM [facility]) 05/24/2023 5:27 PM [facility] Narrative IIMS - 05/24/2023 7:57 PM [facility] This order has been created and auto-finalized [...] Advance Directives For more information, please contact: [phone] Documents on File Type Date Recorded Patient Silk Top Hat Body Maker Expl anation Advance Directives 01/18/2017 12:00 AM Leg acy document. See document viewer. Advance Directives 07/13/2015 12:00 AM Leg acy document. See document viewer.
== END 2023-05-25 09:19 | disposition home or self-care (01) ==
LOC: AMB 05-26 16:11
PROVIDERS: PCP Physician Assistant; Visit Provider Family Medicine
DX: K56.609 Unspecified intestinal obstruction, unspecified as to partial versus complete obstruction (principal)
CPT/HCPCS: A0425; A0427

== ENCOUNTER 2023-08-02 09:43 | Outpatient (CLI) | payer MEDICARE, OTHER, SELFPAY | END 2023-08-02 09:44 | disposition home or self-care (01) | LOC: WOUND 09:43 | PROVIDERS: PCP Physician Assistant; Visit Provider Surgery | DX: T81.31XA Disruption of external operation (surgical) wound, not elsewhere classified, initial encounter (principal); S31.000A Unspecified open wound of lower back and pelvis without penetration into retroperitoneum, initial encounter; K94.23 Gastrostomy malfunction | CPT/HCPCS: 97597; 97602; G0463 ==

== ENCOUNTER 2023-08-09 09:10 | Outpatient (CLI) | payer MEDICARE, OTHER, SELFPAY ==
--- OUTSIDE RECORDS SUMMARY | 2023-08-09 09:12 | XMS_ITS | Referral Summary ---
Author Name Unknown Organization [facility] Address [facility] [place] [address] Care Team Providers Care Chief Accounting Officer Name Role Phone Juan Rojas MD Primary Care Provider [phone] Allergies Active Allergy Reactions Criticality Noted Date Comments Droperidol Hallucination 03/22/2023 Metoclopramide Hallucination 03/22/2023 Sulfa Antibiotics Rash Low 03/22/2023 Patient experienced a rash while using Sulfa-cream product 5 or 6 years ago Medications Medication Sig Dispensed Refills Start Date End Date Status atorvastatin (LIPITOR) 20 MG tablet Take 20 mg by mouth daily Active buPROPion (WELLBUTRIN) 100 MG tablet Take 100 mg by mouth 2 times daily Active cetirizine (ZYRTEC) 10 MG tablet Take 10 mg by mouth daily Active levothyroxine (SYNTHROID/LEVOTHROI D) 137 MCG tablet Take 137 mcg by mouth daily Active gabapentin (NEURONTIN) 300 MG capsule Take 900 mg by mouth 3 times daily Active losartan (COZAAR) 25 MG tablet Take 50 mg by mouth daily Active omeprazole (PRILOSEC) [address] capsule Take 40 mg by mouth daily Active venlafaxine (EFFEXOR) 75 MG tablet Take 75 mg by mouth 3 times daily Active cyanocobalamin (VITAMIN B-12) 1000 MCG tablet Take 2,000 mcg by mouth daily Active vitamin D3 (CHOLECALCIFEROL) 50 mcg (2000 units) tablet Take 1 tablet by mouth daily Active traMADol (ULTRAM) 25 mg TABS half-tab Take 25 mg by mouth every 6 hours as needed for moderate to severe pain Active hydrochlorothiazide (HYDRODIURIL) 12.5 MG tablet Take 12.5 mg by mouth daily Active multivitamin (CENTRUM SILVER) tablet Take 2 tablets by mouth daily Active acetaminophen (TYLENOL) 500 MG tablet Take 500 mg by mouth every 8 hours as needed for mild pain Active oxyCODONE (ROXICODONE) 5 MG tabletIndications:SB O (small bowel obstruction) (H) Take 0.5-1 tablets (2.5-5 mg) by mouth every 4 hours as needed for severe pain 10 tablet 03/27/2023 Active Active Problems Problem Noted Date [...] Comments Blood Pressure 155/66 03/27/2023 8:11 AM PHYSICIANS ASSISTANT Pulse 90 03/27/2023 8:11 AM [facility]YSICI[facility] ASSISTANT Temperature 36.5 ??C (97.7 ??F) 03/27/2023 8:11 AM CS T Respiratory Rate 18 03/27/2023 8:11 AM PHYSICIANS ASSISTANT Oxygen Saturation 93% 03/27/2023 8:11 AM PHYSICIANS ASSISTANT Inhaled Oxygen Concentration - - Weight 98.3 kg (216 lb 11.4 oz) 03/22/2023 3:57 PM PHYSICIANS ASSISTANT Height 160 cm (5' 3) 03/22/2023 5:00 PM PHYSICIANS ASSISTANT Body Mass Index 38.39 03/22/2023 3:57 PM PHYSICIANS ASSISTANT Plan of Treatment Not on file Procedures Procedure Name Priority Date/Time Associated Diagnosis Comments BASIC METABOLIC PANEL Routine 03/27/2023 6:31 AM PHYSICIANS ASSISTANT from Last 3 Months or Most Recently Relevant to Health Maintenance Results * (ABNORMAL) Basic metabolic panel (03/27/2023 6:31 AM PHYSICIANS ASSISTANT) [facility] Sodium 134(L) 135 - 145 mmol/L 03/27/2023 6:59 AM PHYSICIANS ASSISTANT [facility] Comment:Reference intervals for this test were updated on 01/24/2023 to more accurately reflect our healthy population. There may be differences in the flagging of prior results with similar values performed with this method. Interpretation of those prior results can be made in the context of the updated reference intervals. Potassium 4.1 3.4 - 5.3 mmol/L 03/27/2023 6:59 AM [facility] Chloride 101 98 - 107 mmol/L 03/27/2023 6:59 AM [facility] Carbon Dioxide (CO2) 24 22 - 29 mmol/L 03/27/2023 6:59 AM [facility] Anion Gap 9 7 - 15 mmol/L 03/27/2023 6:59 AM [facility] Urea Nitrogen 15.5 8.0 - 23.0 mg/dL 03/27/2023 6:59 AM [facility] Creatinine 0.84 0.51 - 0.95 mg/dL 03/27/2023 6:59 AM [facility] GFR Estimate 72 >60 mL/min/1. 73m2 03/27/2023 6:59 AM [facility] Calcium 8.5(L) 8.8 - 10.2 mg/dL 03/27/2023 6:59 AM [facility] Glucose 102(H) 70 - 99 mg/dL 03/27/2023 6:59 AM [facility] Blood STRUCTURE OF RIGHT UPPER LIMB / Unknown Venipuncture / Unknown 03/27/2023 6:31 AM PHYSICIANS ASSISTANT 03/27/2023 6:39 AM PHYSICIANS ASSISTANT Bernice Stearns MD LAB - BLOOD ORDER [facility] [address] Lab (1st floor, no room number) [place] [address], [place] [phone] from Last 3 Months or Most Recently Relevant to Health Maintenance Advance Directives For more information, please contact: [phone] * Full Code (Latest Code Status on File) Date Activated Date Inactivated Comments 03/22/2023 6:21 PM 03/27/2023 3:49 PM All basic and advanced life-sustaining interventions are performed as appropriate Question Answer Comments Code status determined by: Discussion with patie nt/ legal decision maker Care Teams Chief Accounting Officer Relationship Specialty Start Date End Date Juan Rojas MD [facility] [address] [place] [address] PCP - General Family Medicine 03/23/23
--- OUTSIDE RECORDS SUMMARY | 2023-08-09 09:12 | XMS_ITS | Clinical Summary ---
Author Name Unknown Organization [facility] Address [place], [place] [address] Care Team Providers Care Drafting Engineer Name Role Phone Prabha Nice Primary Care Provider [phone] Allergies Active Allergy Reactions Criticality Noted Date [...] ONE TABLET BY MOUTH EVERY MONDAY AND Monday04/12/2023 Active traMADoL (ULTRAM) 50 mg tablet Take 50 mg by mouth. 04/12/2023 Active fluticasone (50 mcg per actuation) nasal solution (FLONASE) Inhale 2 Sprays to both nostrils once daily. 05/11/2023 Active hydroCHLOROthiaz cheryle 12.5 mg tablet Take 12.5 mg by mouth every morning. Active Lidocaine-Hydroc ortisone Lamont 3-0.5 % topical creamIndications :Peripheral sensory neuropathy Apply topically to affected area(s) at bedtime if needed (nerupathy in feet). 28.3 g 2 05/11/2023 Active gabapentin (NEURONTIN) 600 mg tabletIndication s:Other chronic pain Take 1.5 Tablets (900 mg) by mouth three times daily. 405 Tablet 3 07/27/2023 Active gabapentin (NEURONTIN) 600 mg tablet Take 0.5 Tablets (300 mg) by mouth 3 times daily. 0 02/22/2021 07/25/2023 Discontinued (Reorder (E-cancel not sent)) fluconazole (DIFLUCAN) 100 mg tabletIndication s:Candidiasis Take 1 Tablet (100 mg) by mouth once daily for 14 days. 14 Tablet 07/13/2023 07/27/2023 Active Problems Problem Noted Date Diagnosed Date [...] renal artery 02/23/20 21 Overview: diagnosed day 2009 HTN (hypertension) 02/22/2021 Hypothyroidism (acquired) 02/22/2021 CORAL [...] pulmonary disease) Concentric left ventricular hypertrophy 07/05/19 Nonrheumatic mitral valve stenosis 07/04/2020 Aortic stenosis 06/06/2018 Pulmonary HTN 05/18/2018 Overview: Echo 05/2018: RVSP 52, increased intracavitary gradient, mild aortic and mitral stenosis. Dyslipidemia (high LDL; low HDL) 03/01/2018 History of gastric bypass 03/01/2018 Overview: Iam en y. Prediabetes 03/01/2018 Major depressive disorder, recurrent episode, mo derate 02/06/2018 Bursitis of shoulder 01/14/2014 Encounters Date Type Department Care Team Description 07/25/2023 Refill [facility] [address] [place] [address] Prabha Nice PA Refill Request (gabapentin (NEURONTIN) 600 mg tablet) 07/21/2023 Telephone [facility] [address] [place] [address] Prabha Nice PA Medication Management (Oxybutynin) 07/19/2023 4:15 PM CDT Office Visit [facility] [address] [place] [address] Anahi Lind MD Consult (Check J tube) 07/19/2023 Travel 07/13/2023 11:15 AM CDT Office Visit [address] [place] [address] 07/13/2023 10:30 AM CDT Office Visit [facility] [address] [place] [address] Prabha Nice PA Hospital F/U (Had a plug in her stoma-was in hospital for 44 days-has several abdominal wounds she is having trouble with-also slid off the end of her bed and has a scrape on her back -also has a rash) 07/13/2023 Telephone [facility] [address] [place] [address] Prabha Nice PA left message for provider (has questions for provider regarding appoinment) 07/13/2023 Travel 07/07/2023 Lab Requisition [facility] [phone] Westley Orta MD 06/19/2023 Lab Requisition [facility] [phone] Westley Orta MD 06/19/2023 Lab Requisition [facility] [phone] Westley Orta MD 05/29/2023 Orders Only [facility] Scanner 1 scan: (1-Ord) [facility], 05/29/2023 05/24/2023 Orders Only [facility] Scanner 1 scan: (1-Ord) [facility], CT ABDOMEN PELVIS W CON, 05/24/2023 05/24/2023 Nurse Triage [facility] [address] [place] [address] Prabha Nice PA Abdominal Pain 05/24/2023 Telephone [facility] [address] [place] [address] Prabha Nice PA Error-please disregard 05/19/2023 1:00 PM SEISMOGRAPH COMPUTER Ancillary Procedure [facility] [address] [place] [address] 05/19/2023 Travel 05/11/2023 9:50 AM SEISMOGRAPH COMPUTER Office Visit [facility] [address] [place] [address] Prabha Nice PA Gi Problem (Having trouble with stomach-taking Lactaid tabs-can't eat very well-also has an ostomy bag that keeps getting plugged) 05/11/2023 Travel from Last 3 Months Immunizations Name Administration Dates Next Due COVID-19 Vaccine Spikevax (M oderna 50mcg/0.5mL) 12YO+ [id number] Formula PF 05/11/2023 COVID-19 vaccine (Clixtr-Bio NTech 30mcg/0.3mL) PF, MDV 02/22/2021 Influenza, High-dose [...] Not Answered Alcohol Use Standard Drinks/Week Comments Not Currently 0 (1 standard drink = 0.6 oz pur e alcohol) occ wine PHQ-2 Answer Date Recorded PHQ-2 TOTAL SCORE [...] Sign Reading Time Taken Comments Blood Pressure 150/81 07/19/2023 4:17 PM CDT Pulse 89 07/19/2023 4:17 PM CDT Temperature - - Respiratory Rate - - Oxygen Saturation 99% 07/19/2023 4:1 7 PM CDT Inhaled Oxygen Concentration - - Weight 87.7 kg (193 lb 6.4 oz) 07/19/2023 4:17 PM CDT with slippers Height 158.5 cm (5' 2.4) 05/11/2023 10 :00 AM SEISMOGRAPH COMPUTER Body Mass Index 34.92 05/11/2023 10:00 AM SEISMOGRAPH COMPUTER Plan of Treatment Upcoming Encounters Date Type Department Care Team (Late st Contact Info) Description 08/09/2023 2:00 PM CDT Ancillary Procedure [facility] [address] [place] [address] 08/15/2023 11:10 AM CDT Office Visit [facility] [address] [place] [address] Prabha Nice PA [address] [place] [address] Health Maintenance Due Date Last Done Comments Hepatitis C screening for age 18-79 1963 Zoster (shingles) series for age 50+ (2 of 3) 09/03/2013 07/09/2013 Pneumococcal series for age 65+ (3 of 3 - PPSV23 or PCV20) 11/12/2015 11/11/2014, 09/28/2009, 05/01/2007 Medicare Wellness for age 65+ 02/23/2022 02/22/2021 Influenza for age 65+ 12/31/2023 02/06/2023 , 02/17/2022, 02/15/2021, Additional history exists BMI (ht and wt on same day) for age 18+ 05/11/2024 05/11/2023, 02/22/2021 Depression screening for age 12+ 05/11/2024 05/11/2023, 02/23/2021, 02/22/2021 Tetanus booster 12/27/2032 12/27/2022, 03/02, 09/28/2009 DEXA/DXA scan for age 65+ Addressed 2015 (Verified in Care Everywhere or Patient Record) Overridden with the intention of not completing the topic Tdap Completed 12/27/2022, 03/21/2012 COVID-19 vaccine series Completed 05/11/19, 03/09/2022, 02/22/2021, Additional history exists Procedures Procedure Name Priority Date/Time Associated Diagnosis Comments EXTENDED HOLTER Routine 08/04/2023 Paroxysmal atrial fibrillation (HC) BASIC METABOLIC PANEL Routine 07/11/2023 7:52 AM CDT Myocardial infarction type 2 (HC) ALBUMIN Routine 07/11/2023 7:52 AM CDT Myocardial infarction type 2 (HC) CBC W PLT NO DIFF Routine 07/11/2023 7:5 2 AM CDT Myocardial infarction type 2 (HC) RED CELL MORPHOLOGY Routine 06/20/2023 7 :06 AM SEISMOGRAPH COMPUTER Essential (primary) hypertension Anemia, unspecified PLATELET ESTIMATE Routine 06/20/2023 7:0 6 AM SEISMOGRAPH COMPUTER Essential (primary) hypertension Anemia, unspecified CBC WITH AUTO DIFFERENTIAL Routine 06/20/2023 7:06 AM SEISMOGRAPH COMPUTER Essential (primary) hypertension Anemia, unspecified COMP METABOLIC PANEL Routine 06/20/2023 7:06 AM SEISMOGRAPH COMPUTER Essential (primary) hypertension Anemia, unspecified CBC WITH AUTO DIFFERENTIAL Routine 06/20/2023 7:06 AM SEISMOGRAPH COMPUTER Essential (primary) hypertension Anemia, unspecified SCAN-OPERATIVE/PROCEDU RE REPORT 05/29/2023 12:00 AM SEISMOGRAPH COMPUTER SCAN-CT INTERPRETATION 12:[address] ABDOMEN PELVIS WO Routine 05/19/2023 1:36 PM SEISMOGRAPH COMPUTER Ileostomy status (HC) Abdominal pain, RLQ (right lower quadrant) CBC WITH AUTO DIFFERENTIAL Routine 05/11/2023 10:57 AM SEISMOGRAPH COMPUTER Ileostomy status (HC) Abdominal pain, RLQ (right lower quadrant) C-REACTIVE PROTEIN Routine 05/11/2023 10 :57 AM SEISMOGRAPH COMPUTER Ileostomy status (HC) Abdominal pain, RLQ (right lower quadrant) LIPASE Routine 05/11/2023 10:57 AM SEISMOGRAPH COMPUTER Ileostomy status (HC) Abdominal pain, RLQ (right lower quadrant) COMP METABOLIC PANEL Routine 05/11/2023 10:57 AM SEISMOGRAPH COMPUTER Ileostomy status (HC) Abdominal pain, RLQ (right lower quadrant) CBC WITH AUTO DIFFERENTIAL Routine 05/11/2023 10:57 AM SEISMOGRAPH COMPUTER Ileostomy status (HC) Abdominal pain, RLQ (right lower quadrant) from Last 3 Months Results * EXTENDED HOLTER (08/04/2023) Prabha [facility] [address] * (ABNORMAL) CBC W PLT NO DIFF (07/11/2023 7:52 AM CDT) WHITE BLOOD COUNT 6.4 4.5 - 11.0 thou/cu mm 07/11/2023 9:02 AM [facility] RED BLOOD COUNT 3.66(L) 4.00 - 5.20 mil/cu mm 07/11/2023 9:02 AM [facility] HEMOGLOBIN 10.7(L) 12.0 - 16.0 g/dL 07/11/2023 9:02 AM [facility] HEMATOCRIT 34.7 33.0 - 51.0 % 07/11/2023 9:02 AM [facility] MCV 95 80 - 100 fL 07/11/2023 9:02 AM [facility] MCH 29.2 26.0 - 34.0 pg 07/11/2023 9:02 AM [facility] MCHC 30.8(L) 32.0 - 36.0 g/dL 07/11/2023 9:02 AM [facility] RDW 15.9(H) 11.5 - 15.5 % 07/11/2023 9:02 AM [facility] PLATELET COUNT 355 140 - 440 thou/cu mm 07/11/2023 9:02 AM [facility] MPV 10.3 6.5 - 11.0 fL 07/11/2023 9:02 AM [facility] Blood BLOOD SPECIMEN / Unknown Butterfly / Unknown 07/11/2023 7:52 AM CDT 07/11/2023 8:53 AM CDT Westley Orta MD HEMATOLOGY [facility] [address] [place] [address] * (ABNORMAL) ALBUMIN (07/11/2023 7:52 AM CDT) ALBUMIN 3.6(L) 4.0 - 4.9 g/dL 07/11/2023 9:20 AM [facility] Blood BLOOD SPECIMEN / Unknown Butterfly / Unknown 07/11/2023 7:52 AM CDT 07/11/2023 8:53 AM CDT Westley Orta MD CHEMISTRY [facility] [address] [place] [address] * (ABNORMAL) BASIC METABOLIC PANEL (07/11/2023 7:52 AM CDT) SODIUM 132(L) 136 - 145 mmol/L 07/11/2023 9:20 AM [facility] POTASSIUM 4.7 3.5 - 5.1 mmol/L 07/11/2023 9:20 AM [facility] CHLORIDE 102 98 - 107 mmol/L 07/11/2023 9:20 AM [facility] CO2,TOTAL 21(L) 22 - 29 mmol/L 07/11/2023 9:20 AM [facility] ANION GAP 9 5 - 18 07/11/2023 9:20 AM [facility] GLUCOSE 129(H) 70 - 99 mg/dL 07/11/2023 9:20 AM [facility] CALCIUM 9.7 8.8 - 10.2 mg/dL 07/11/2023 9:20 AM [facility] BUN 10 8 - 23 mg/dL 07/11/2023 9:20 AM [facility] CREATININE 0.62 0.50 - 0.90 mg/dL 07/11/2023 9:20 AM [facility] BUN/CREAT RATIO 16 10 - 20 9:20 AM [facility] eGFR >90 >90 mL/min/1.7 3m2 07/11/2023 9:20 AM [facility] Comment:As of 2021, eG FR is calculated by the CKD-EPI creatinine equation without race adjustment. ??eGFR can be influenced by muscle mass, exercise, and diet. ??The reported eGFR is an estimation only and is only applicable if the renal function is stable. Blood BLOOD SPECIMEN / Unknown Butterfly / Unknown 07/11/2023 7:52 AM CDT 07/11/2023 8:53 AM CDT Westley Orta MD CHEMISTRY [facility] [address] [place] [address] * (ABNORMAL) CBC WITH AUTO DIFFERENTIAL (06/20/2023 7:06 AM [facility]) Only the most recent of2 resultswithin the time period is included. WHITE BLOOD COUNT 6.1 4.5 - 11.0 thou/cu mm 06/20/2023 8:39 AM [facility] RED BLOOD COUNT 2.91(L) 4.00 - 5.20 mil/cu mm 06/20/2023 8:39 AM [facility] HEMOGLOBIN 8.4(L) 12.0 - 16.0 g/dL 06/20/2023 8:39 AM [facility] HEMATOCRIT 28.6(L) 33.0 - 51.0 % 06/20/2023 8:39 AM [facility] MCV 98 80 - 100 fL 06/20/2023 8:39 AM [facility] MCH 28.9 26.0 - 34.0 pg 06/20/2023 8:39 AM [facility] MCHC 29.4(L) 32.0 - 36.0 g/dL 06/20/2023 8:39 AM [facility] RDW 16.4(H) 11.5 - 15.5 % 06/20/2023 8:39 AM [facility] PLATELET COUNT 429 140 - 440 thou/cu mm 06/20/2023 8:39 AM [facility] MPV 9.9 6.5 - 11.0 fL 06/20/2023 8:39 AM [facility] % NEUT 56.7 % 06/20/2023 8:39 AM [facility] % LYMPH 26.0 % 06/20/2023 8:39 AM [facility] % MONO 14.4 % 06/20/2023 8:39 AM [facility] % EOS 2.1 % 06/20/2023 8:39 AM [facility] % BASO 0.8 % 06/20/2023 8:39 AM [facility] ABSOLUTE NEUTROPHILS 3.5 1.7 - 7.0 thou/cu mm 06/20/2023 8:39 AM [facility] ABSOLUTE LYMPHOCYTES 1.6 0.9 - 2.9 thou/cu mm 06/20/2023 8:39 AM [facility] ABSOLUTE MONOCYTES 0.9(H) <0.9 thou/cu mm 06/20/2023 8:39 AM [facility] ABSOLUTE EOSINOPHILS 0.1 <0.5 thou/cu mm 06/20/2023 8:39 AM [facility] ABSOLUTE BASOPHILS 0.1 <0.3 thou/cu mm 06/20/2023 8:39 AM [facility] Blood BLOOD SPECIMEN / Unknown Butterfly / Unknown 06/20/2023 7:06 AM SEISMOGRAPH COMPUTER 06/20/2023 8:11 AM SEISMOGRAPH COMPUTER Westley Orta MD HEMATOLOGY [facility] [address] [place] [id number] * (ABNORMAL) RED CELL MORPHOLOGY (06/20/2023 7:06 AM SEISMOGRAPH COMPUTER) POLYCHROMASIA Slight 06/20/2023 8:39 AM [facility] RBC COMMENT Present(A) RBC morphology appears normal, RBC morphology within normal limits for newborns. 06/20/2023 8:39 AM [facility] Blood BLOOD SPECIMEN / Unknown Butterfly / Unknown 06/20/2023 7:06 AM SEISMOGRAPH COMPUTER 06/20/2023 8:11 AM SEISMOGRAPH COMPUTER Westley Orta MD HEMATOLOGY [facility] [address] [place] [address] * PLATELET ESTIMATE (06/20/2023 7:06 AM SEISMOGRAPH COMPUTER) Pathologist [facility] PLATELET ESTIMATE Adequate Adequate, No estimate 06/20/2023 8:39 AM [facility] Blood BLOOD SPECIMEN / Unknown Butterfly / Unknown 06/20/2023 7:06 AM SEISMOGRAPH COMPUTER 06/20/2023 8:11 AM SEISMOGRAPH COMPUTER Westley Orta MD HEMATOLOGY Performing Organization Address [facility]/ZIP Co de Phone Number [facility] [address] [place] [address] * (ABNORMAL) COMP METABOLIC PANEL (06/20/2023 7:06 AM SEISMOGRAPH COMPUTER) Only the most recent of2 resultswithin the time period is included. [facility] SODIUM 134(L) 136 - 145 mmol/L 06/20/2023 8:39 AM [facility] POTASSIUM 4.3 3.5 - 5.1 mmol/L 06/20/2023 8:39 AM [facility] CHLORIDE 96(L) 98 - 107 mmol/L 06/20/2023 8:39 AM [facility] CO2,TOTAL 29 22 - 29 mmol/L 06/20/2023 8:39 AM [facility] ANION GAP 9 5 - 18 06/20/2023 8:39 AM [facility] GLUCOSE 140(H) 70 - 99 mg/dL 06/20/2023 8:39 AM [facility] CALCIUM 9.2 8.8 - 10.2 mg/dL 06/20/2023 8:39 AM [facility] BUN 15 8 - 23 mg/dL 06/20/2023 8:39 AM [facility] CREATININE 0.76 0.50 - 0.90 mg/dL 06/20/2023 8:39 AM [facility] BUN/CREAT RATIO 20 10 - 20 8:39 AM [facility] eGFR 81(L) >90 mL/min/1.7 3m2 06/20/2023 8:39 AM [facility] Comment:As of 2021, eG FR is calculated by the CKD-EPI creatinine equation without race adjustment. ??eGFR can be influenced by muscle mass, exercise, and diet. ??The reported eGFR is an estimation only and is only applicable if the renal function is stable. ALBUMIN 3.2(L) 4.0 - 4.9 g/dL 06/20/2023 8:39 AM [facility] PROTEIN,TOTAL 6.8 6.0 - 8.0 g/dL 06/20/2023 8:39 AM [facility] BILIRUBIN,TOTAL 0.3 0.0 - 1.2 mg/dL 06/20/2023 8:39 AM [facility] ALK PHOSPHATASE 118(H) 35 - 104 IU/L 06/20/2023 8:39 AM [facility] ALT (SGPT) 10 10 - 35 IU/L 06/20/2023 8:39 AM [facility] AST (SGOT) 24 10 - 35 IU/L 06/20/2023 8:39 AM [facility] Blood BLOOD SPECIMEN / Unknown Butterfly / Unknown 06/20/2023 7:06 AM SEISMOGRAPH COMPUTER 06/20/2023 8:11 AM SEISMOGRAPH COMPUTER Westley Orta MD CHEMISTRY Performing Organization Address [facility] Co de Phone Number [facility] [address] [place] [phone] * SCAN-OPERATIVE/PROCEDURE REPORT (05/29/2023 12:00 AM SEISMOGRAPH COMPUTER) Scanner OTHER * SCAN-CT INTERPRETATION (05/24/2023 12:00 AM SEISMOGRAPH COMPUTER) Anatomical Region Laterality Modality Other Scanner OTHER * CT ABDOMEN PELVIS WO (05/19/2023 1:36 PM SEISMOGRAPH COMPUTER) Anatomical Region Laterality Modality Abdomen, Pelvis, AORTA, LIVER, SPLEEN Computed Tomography 05/19/2023 2:14 PM SEISMOGRAPH COMPUTER Narrative 05/19/2023 2:14 PM SEISMOGRAPH COMPUTER For Patients: ??As a result of the [...] 2:14PM (Electronically Signed) Prabha GORE CT * C-REACTIVE PROTEIN (05/11/2023 10:57 AM SEISMOGRAPH COMPUTER) [facility] C-REACTIVE PROTEIN <0.3 <0.5 mg/dL 05/11/2023 5:10 PM SEISMOGRAPH COMPUTER [facility] Blood BLOOD SPECIMEN / Unknown Venipuncture / Unknown 05/11/2023 10:57 AM SEISMOGRAPH COMPUTER 05/11/2023 10:59 AM SEISMOGRAPH COMPUTER Prabha [facility]ORE [facility] [address] [place] [address], * (ABNORMAL) LIPASE (05/11/2023 10:57 AM SEISMOGRAPH COMPUTER) Pathologist [facility] LIPASE 65.4(H) 13.0 - 60.0 IU/L 05/11/2023 3:41 PM SEISMOGRAPH COMPUTER [facility] Blood BLOOD SPECIMEN / Unknown Venipuncture / Unknown 05/11/2023 10:57 AM SEISMOGRAPH COMPUTER 05/11/2023 10:59 AM SEISMOGRAPH COMPUTER Prabha GORE CHEMISTRY [facility] [address] [place] [address], from Last 3 Months Advance Directives Documents on File Type Date Recorded Patient Diamond Grader Expl anation POLST 07/18/2023 Care Teams Drafting Engineer Relationship Specialty Start Date End Date Prabha Nice PA [address] [place] [address] PCP - General Physician Desulphuring Operator 05/18/23
--- OUTSIDE RECORDS SUMMARY | 2023-08-09 09:12 | XMS_ITS | Continuity of Care Document ---
Author Name [facility] Organization [facility] Care Team Providers Care Nurse Charge Rn Name Role Phone [facility] Unavailable Unavailable Medications Combined list of outpatient medications from Department of Defense and Veterans Affairs facilities.Medications provided include 1) outpatient medications from the last 15 months, and 2) patient-reported medications. Medication Details Route Status Patient Instructions Prescription Expires Prescription Number Last Dispense Date Ordering Provider Order Date Source ATORVASTATI N CALCIUM (ATORVASTAT IN CALCIUM), 20 MG, TABLET, ORAL, APOTEX ORION, 1000 ea. BOTTLE Active [id number] 2023 Pharmac y Data Transac tion Service Facilit y ATORVASTATI N CALCIUM (atorvastat in calcium), 20 MG, TABLET, ORAL, [employer] [facility], 500 ea. BOTTLE Active [id number] 4 2023 Pharmac y Data Transac tion Service Facilit y atorvastati n calcium ([employer]) 1000 TABLET in 1 BOTTLE Active [id number] 4 2023 Pharmac y Data Transac tion Service Facilit y atorvastati n calcium ([employer]) 1000 TABLET in 1 BOTTLE Active [id number] 4 2023 Pharmac y Data Transac tion Service Facilit y BUPROPION HCL (bupropion HCl), 100 MG, TABLET, ORAL, [facility], 100 ea. BOTTLE Active [id number] 4 2023 Pharmac y Data Transac tion Service Facilit y BUPROPION HCL (BUPROPION HCL), 100MG, TABLET, ORAL, APOTEX ORION, 100 ea. BOTTLE Active [id number] 2023 Pharmac y Data Transac tion Service Facilit y BUPROPION HCL (BUPROPION HCL), 100MG, TABLET, ORAL, APOTEX ORION, 100 ea. BOTTLE Active [id number] 4 2023 Pharmac y Data Transac tion Service Facilit y BUPROPION HCL (BUPROPION HCL), 100MG, TABLET, ORAL, APOTEX ORION, 100 ea. BOTTLE Active [id number] 2023 Pharmac y Data Transac tion Service Facilit y CETIRIZINE HCL (CETIRIZINE HCL), 5MG, TABLET, ORAL, MYLAN, 100 ea. BOTTLE Active [id number] 4 2023 Pharmac y Data Transac tion Service Facilit y CETIRIZINE HCL (CETIRIZINE HCL), 5MG, TABLET, ORAL, MYLAN, 100 ea. BOTTLE Active [id number] 2023 Pharmac y Data Transac tion Service Facilit y CETIRIZINE HCL (CETIRIZINE HCL), 5MG, TABLET, ORAL, MYLAN, 100 ea. BOTTLE Active [id number] 2023 Pharmac y Data Transac tion Service Facilit y FLUCONAZOLE (fluconazol e), 100 MG, TABLET, ORAL, [facility]ARMACEU, 100 ea. BOTTLE Active [id number] 2023 Pharmac y Data Transac tion Service Facilit y FUROSEMIDE (FUROSEMIDE ), 20MG, TABLET, ORAL, [facility] 1000 ea. BOTTLE Active [id number] 2023 Pharmac y Data Transac tion Service Facilit y FUROSEMIDE (FUROSEMIDE ), 20MG, TABLET, ORAL, [facility] 1000 ea. BOTTLE Active [id number] 2023 Pharmac y Data Transac tion Service Facilit y GABAPENTIN (gabapentin ), 600 MG, TABLET, ORAL, [facility], 500 ea. BOTTLE Active [id number] 4 2023 Pharmac y Data Transac tion Service Facilit y GABAPENTIN (GABAPENTIN ), 600 MG, TABLET, ORAL, [employer] [facility], 500 ea. BOTTLE Active [id number] 4 2023 Pharmac y Data Transac tion Service Facilit y GABAPENTIN (gabapentin ), 600 MG, TABLET, ORAL, [facility], 500 ea. BOTTLE Active [id number] 2023 Pharmac y Data Transac tion Service Facilit y GABAPENTIN (gabapentin ), 600 MG, TABLET, ORAL, [facility], 500 ea. BOTTLE Active [id number] 2023 Pharmac y Data Transac tion Service Facilit y HYDROCHLORO THIAZIDE (hydrochlor othiazide), 12.5 MG, CAPSULE, ORAL, [employer] [facility], 500 ea. BOTTLE Active [id number] 2023 Pharmac y Data Transac tion Service Facilit y HYDROCHLORO THIAZIDE (HYDROCHLOR OTHIAZIDE), 12.5 MG, TABLET, ORAL, [facility], 1000 ea. BOTTLE Active [id number] 2023 Pharmac y Data Transac tion Service Facilit y HYDROCHLORO THIAZIDE (HYDROCHLOR OTHIAZIDE), 12.5 MG, TABLET, ORAL, [facility], 1000 ea. BOTTLE Active [id number] 2023 Pharmac y Data Transac tion Service Facilit y HYDROCHLORO THIAZIDE (HYDROCHLOR OTHIAZIDE), 12.5 MG, TABLET, ORAL, [facility], 1000 ea. BOTTLE Active [id number] 2023 Pharmac y Data Transac tion Service Facilit y LEVOTHYROXI NE SODIUM (levothyrox ine sodium), 137 MCG, TABLET, ORAL, [facility], 1000 ea. BOTTLE Active [id number] 4 2023 Pharmac y Data Transac tion Service Facilit y LEVOTHYROXI NE SODIUM (levothyrox ine sodium), 137 MCG, TABLET, ORAL, [facility], 1000 ea. BOTTLE Active [id number] 4 2023 Pharmac y Data Transac tion Service Facilit y LEVOTHYROXI NE SODIUM (levothyrox ine sodium), 137 MCG, TABLET, ORAL, [facility], 1000 ea. BOTTLE Active [id number] 2023 Pharmac y Data Transac tion Service Facilit y LIDOCAINE-H YDROCORTISO NE (HYDROCORTI SONE AC/LIDOCAIN E), 0.5 %-3 %, CREAM (G), TOPICAL, [facility], 28.35 g TUBE Cancele d [id number] : 2023 Pharmac y Data Transac tion Service Facilit y LOSARTAN POTASSIUM (LOSARTAN POTASSIUM), 100 MG, TABLET, ORAL, [facility]ARM, 1000 ea. BOTTLE Active [id number] 4 2023 Pharmac y Data Transac tion Service Facilit y LOSARTAN POTASSIUM (LOSARTAN POTASSIUM), 100 MG, TABLET, ORAL, [facility], 1000 ea. BOTTLE Active [id number] 2023 Pharmac y Data Transac tion Service Facilit y LOSARTAN POTASSIUM (LOSARTAN POTASSIUM), 100 MG, TABLET, ORAL, [facility], 1000 ea. BOTTLE Active [id number] 2023 Pharmac y Data Transac tion Service Facilit y LOSARTAN POTASSIUM (LOSARTAN POTASSIUM), 100 MG, TABLET, ORAL, [facility], 1000 ea. BOTTLE Active [id number] 4 2023 Pharmac y Data Transac tion Service Facilit y LOSARTAN POTASSIUM (LOSARTAN POTASSIUM), 100 MG, TABLET, ORAL, [facility], 1000 ea. BOTTLE Active [id number] 4 2023 Pharmac y Data Transac tion Service Facilit y LOSARTAN POTASSIUM (LOSARTAN POTASSIUM), 50 MG, TABLET, ORAL, [facility], 1000 ea. BOTTLE Active [id number] 2023 Pharmac y Data Transac tion Service Facilit y OMEPRAZOLE (omeprazole ), 40 MG, CAPSULE DR, ORAL, [employer] [facility], 1000 ea. BOTTLE Active [id number] 4 2023 Pharmac y Data Transac tion Service Facilit y OMEPRAZOLE (omeprazole ), 40 MG, CAPSULE DR, ORAL, [employer] [facility], 1000 ea. BOTTLE Active [id number] 2023 Pharmac y Data Transac tion Service Facilit y OMEPRAZOLE (omeprazole ), 40 MG, CAPSULE DR, ORAL, [employer] [facility], 1000 ea. BOTTLE Active [id number] 2023 Pharmac y Data Transac tion Service Facilit y OMEPRAZOLE (omeprazole ), 40 MG, CAPSULE DR, ORAL, [employer] [facility], 1000 ea. BOTTLE Active [id number] 4 2023 Pharmac y Data Transac tion Service Facilit y OXYBUTYNIN CHLORIDE ER (OXYBUTYNIN CHLORIDE), 5 MG, TAB ER 24, ORAL, [employer], 500 ea. BOTTLE Active [id number] 4 2023 Pharmac y Data Transac tion Service Facilit y TRAMADOL HCL (tramadol HCl), 50 MG, TABLET, ORAL, AM[facility]AL [facility]ARM[facility], 500 ea. BOTTLE Active [id number] 4 2023 Pharmac y Data Transac tion Service Facilit y TRAMADOL HCL (tramadol HCl), 50 MG, TABLET, ORAL, [facility], 500 ea. BOTTLE Active [id number] 2023 Pharmac y Data Transac tion Service Facilit y VENLAFAXINE HCL (venlafaxin e HCl), 75 MG, TABLET, ORAL, [facility], 100 ea. BOTTLE Active [id number] 2023 Pharmac y Data Transac tion Service Facilit y VENLAFAXINE HCL (venlafaxin e HCl), 75 MG, TABLET, ORAL, [facility], 100 ea. BOTTLE Active [id number] 2023 Pharmac y Data Transac tion Service Facilit y VENLAFAXINE HCL (venlafaxin e HCl), 75 MG, TABLET, ORAL, [facility], 100 ea. BOTTLE Active [id number] 2023 Pharmac y Data Transac tion Service Facilit y VENLAFAXINE HCL (venlafaxin e HCl), 75 MG, TABLET, ORAL, [facility], 100 ea. BOTTLE Active [id number] 2023 Pharmac y Data Transac tion Service Facilit y VENLAFAXINE HCL (VENLAFAXIN E HCL), 75 MG, TABLET, ORAL, [facility], 100 ea. BOTTLE Active [id number] 4 2023 Pharmac y Data Transac tion Service Facilit y Social History Combined list of available smoking, tobacco, and other social history from Department of Defense and Veterans Affairs facilities. Social History Type Response Date Comment [facility] e This section is an empty social history section. DoD
--- OUTSIDE RECORDS SUMMARY | 2023-08-09 09:12 | XMS_ITS | Clinical Summary ---
Author Name Unknown Organization [place] Address [facility] [place] [address] Care Team Providers Care Senior Windows Systems Administrator Name Role Phone Juan Rojas MD Primary Care Provider [phone] Allergies Active Allergy Reactions Criticality Noted Date [...] unspecified 03/25/2023 SBO (small bowel obstruction) 03/22/2023 Family History Medical History Relation Comments Ulcerative [...] Comments Blood Pressure 155/66 03/27/2023 8:11 AM CAGE SHIFT MANAGER Pulse 90 03/27/2023 8:11 AM CAGE SHIFT MANAGER Temperature 36.5 ??C (97.7 ??F) 03/27/2023 8:11 AM CS T Respiratory Rate 18 03/27/2023 8:11 AM CAGE SHIFT MANAGER Oxygen Saturation 93% 03/27/2023 8:11 AM CAGE SHIFT MANAGER Inhaled Oxygen Concentration - - Weight 98.3 kg (216 lb 11.4 oz) 03/22/2023 3:57 PM CAGE SHIFT MANAGER Height 160 cm (5' 3) 03/22/2023 5:00 PM CAGE SHIFT MANAGER Body Mass Index 38.39 03/22/2023 3:57 PM CAGE SHIFT MANAGER Plan of Treatment Health Maintenance Due Date Last Done Comments ADVANCE CARE PLANNING 1945 ANNUAL REVIEW OF HM ORDERS 1946 DEXA 1945 LIPID 1946 TSH W/FREE T4 REFLEX 1946 HEPATITIS C SCREENING 1964 RSV VACCINE ( & 60+) (1 - 1-dose 60+ series) 2006 FALL RISK ASSESSMENT 2011 ZOSTER IMMUNIZATION (1 of 2) 09/03/2013 07/09/2013 Pneumococcal Vaccine: 65+ Years (4 of 4 - PPSV23 or PCV20) 11/12/2015 11/11/2014, 09/28/2009, 05/01/2007 MEDICARE ANNUAL WELLNESS VISIT 02/22/2022 02/22/2021 COVID-19 Vaccine (5 - season) 2022 03/09/2022, 02/22/2021, 07/29/2020, Additional history exists PHQ-2 (once per calendar year) 2023 GLUCOSE 03/27/2026 03/27/2023, 1109/2022, 03/25/2023, Additional history exists DTAP/TDAP/TD IMMUNIZATION (3 - Td or Tdap) [...] BASIC METABOLIC PANEL Routine 03/27/2023 6:31 AM CAGE SHIFT MANAGER from Last 3 Months or Most Recently Relevant to Health Maintenance Results * (ABNORMAL) Basic metabolic panel (03/27/2023 6:31 AM CAGE SHIFT MANAGER) Sodium 134(L) 135 - 145 mmol/L 03/27/2023 6:59 AM CAGE SHIFT MANAGER [facility] Comment:Reference intervals for this test were updated on 01/24/2023 to more accurately reflect our healthy population. There may be differences in the flagging of prior results with similar values performed with this method. Interpretation of those prior results can be made in the context of the updated reference intervals. Potassium 4.1 3.4 - 5.3 mmol/L 03/27/2023 6:59 AM CAGE SHIFT MANAGER [facility] Chloride 101 98 - 107 mmol/L 03/27/2023 6:59 AM CAGE SHIFT MANAGER [facility] Carbon Dioxide (CO2) 24 22 - 29 mmol/L 03/27/2023 6:59 AM CAGE SHIFT MANAGER LABORATORY Anion Gap 9 7 - 15 mmol/L 03/27/2023 6:59 AM CAGE SHIFT MANAGER LABORATORY Urea Nitrogen 15.5 8.0 - 23.0 mg/dL 03/27/2023 6:59 AM CAGE SHIFT MANAGER LABORATORY Creatinine 0.84 0.51 - 0.95 mg/dL 03/27/2023 6:59 AM CAGE SHIFT MANAGER LABORATORY GFR Estimate 72 >60 mL/min/1. 73m2 03/27/2023 6:59 AM [facility] Calcium 8.5(L) 8.8 - 10.2 mg/dL 03/27/2023 6:59 AM [facility] Glucose 102(H) 70 - 99 mg/dL 03/27/2023 6:59 AM [facility] Blood STRUCTURE OF RIGHT UPPER LIMB / Unknown Venipuncture / Unknown 03/27/2023 6:31 AM CAGE SHIFT MANAGER 03/27/2023 6:39 AM CAGE SHIFT MANAGER Bernice Stearns MD LAB - BLOOD ORDER MILE [facility] Acute [facility] Lab [address] Lab (1st floor, no room number) [place] [address], [facility] [phone] from Last 3 Months or Most Recently Relevant to Health Maintenance Advance Directives For more information, please contact: [phone] * Full Code (Latest Code Status on File) Date Activated Date Inactivated Comments 03/22/2023 6:21 PM 03/27/2023 3:49 PM All basic and advanced life-sustaining interventions are performed as appropriate Question Answer Comments Code status determined by: Discussion with patie nt/ legal decision maker Care Teams Senior Windows Systems Administrator Relationship Specialty Start Date End Date Juan Rojas MD [address] [place] [address] PCP - General Family Medicine 03/23/23
== END 2023-08-09 09:11 | disposition home or self-care (01) ==
LOC: WOUND 09:10
PROVIDERS: PCP Physician Assistant; Visit Provider Surgery
DX: T81.31XA Disruption of external operation (surgical) wound, not elsewhere classified, initial encounter (principal); S31.000A Unspecified open wound of lower back and pelvis without penetration into retroperitoneum, initial encounter
CPT/HCPCS: 97597

== ENCOUNTER 2023-08-16 10:51 | Outpatient (CLI) | payer MEDICARE, OTHER, SELFPAY ==
--- OUTSIDE RECORDS SUMMARY | 2023-08-16 10:53 | XMS_ITS | Continuity of Care Document ---
Author Name [facility] Organization [facility] Care Team Providers Care Safety Coordinator Name Role Phone [facility] Unavailable Unavailable Medications Combined list of outpatient medications from Department of Defense and Veterans Affairs facilities.Medications provided include 1) outpatient medications from the last 15 months, and 2) patient-reported medications. Medication Details Route Status Patient Instructions Prescription Expires Prescription Number Last Dispense Date Ordering Provider Order Date Order Qty Source ATORVASTATI N CALCIUM (ATORVASTAT IN CALCIUM), 20 MG, TABLET, ORAL, APOTEX ORION, 1000 ea. BOTTLE Active [id number] 2023 14 Pharmac y Data Transac tion Service Facilit y ATORVASTATI N CALCIUM (atorvastat in calcium), 20 MG, TABLET, ORAL, [facility], 500 ea. BOTTLE Active [id number] 4 2023 30 Pharmac y Data Transac tion Service Facilit y atorvastati n calcium ([employer]) 1000 TABLET in 1 BOTTLE Active [id number] 4 2023 30 Pharmac y Data Transac tion Service Facilit y atorvastati n calcium ([employer]) 1000 TABLET in 1 BOTTLE Active [id number] 4 2023 30 Pharmac y Data Transac tion Service Facilit y BUPROPION HCL (bupropion HCl), 100 MG, TABLET, ORAL, [facility], 100 ea. BOTTLE Active [id number] 2023 28 Pharmac y Data Transac tion Service Facilit y BUPROPION HCL (BUPROPION HCL), 100MG, TABLET, ORAL, APOTEX ORION, 100 ea. BOTTLE Active [id number] 2023 90 Pharmac y Data Transac tion Service Facilit y BUPROPION HCL (BUPROPION HCL), 100MG, TABLET, ORAL, APOTEX ORION, 100 ea. BOTTLE Active [id number] 2023 90 Pharmac y Data Transac tion Service Facilit y BUPROPION HCL (BUPROPION HCL), 100MG, TABLET, ORAL, APOTEX ORION, 100 ea. BOTTLE Active [id number] 2023 90 Pharmac y Data Transac tion Service Facilit y CETIRIZINE HCL (CETIRIZINE HCL), 5MG, TABLET, ORAL, MYLAN, 100 ea. BOTTLE Active [id number] 2023 15 Pharmac y Data Transac tion Service Facilit y CETIRIZINE HCL (CETIRIZINE HCL), 5MG, TABLET, ORAL, MYLAN, 100 ea. BOTTLE Active [id number] 2023 15 Pharmac y Data Transac tion Service Facilit y CETIRIZINE HCL (CETIRIZINE HCL), 5MG, TABLET, ORAL, MYLAN, 100 ea. BOTTLE Active [id number] 2023 15 Pharmac y Data Transac tion Service Facilit y FLUCONAZOLE (fluconazol e), 100 MG, TABLET, ORAL, [facility]US [facility]ARMACEU, 100 ea. BOTTLE Active [id number] 2023 14 Pharmac y Data Transac tion Service Facilit y FUROSEMIDE (FUROSEMIDE ), 20MG, TABLET, ORAL, [facility] 1000 ea. BOTTLE Active [id number] 2023 8 Pharmac y Data Transac tion Service Facilit y FUROSEMIDE (FUROSEMIDE ), 20MG, TABLET, ORAL, [facility] 1000 ea. BOTTLE Active [id number] 2023 8 Pharmac y Data Transac tion Service Facilit y GABAPENTIN (gabapentin ), 600 MG, TABLET, ORAL, [facility], 500 ea. BOTTLE Active [id number] 2023 120 Pharmac y Data Transac tion Service Facilit y GABAPENTIN (GABAPENTIN ), 600 MG, TABLET, ORAL, [facility], 500 ea. BOTTLE Active [id number] 2023 120 Pharmac y Data Transac tion Service Facilit y GABAPENTIN (gabapentin ), 600 MG, TABLET, ORAL, [facility], 500 ea. BOTTLE Active [id number] 2023 63 Pharmac y Data Transac tion Service Facilit y GABAPENTIN (gabapentin ), 600 MG, TABLET, ORAL, [facility], 500 ea. BOTTLE Active [id number] 2023 135 Pharmac y Data Transac tion Service Facilit y HYDROCHLORO THIAZIDE (hydrochlor othiazide), 12.5 MG, CAPSULE, ORAL, [facility], 500 ea. BOTTLE Active [id number] 2023 14 Pharmac y Data Transac tion Service Facilit y HYDROCHLORO THIAZIDE (HYDROCHLOR OTHIAZIDE), 12.5 MG, TABLET, ORAL, [facility], 1000 ea. BOTTLE Active [id number] 2023 30 Pharmac y Data Transac tion Service Facilit y HYDROCHLORO THIAZIDE (HYDROCHLOR OTHIAZIDE), 12.5 MG, TABLET, ORAL, [facility], 1000 ea. BOTTLE Active [id number] 2023 30 Pharmac y Data Transac tion Service Facilit y HYDROCHLORO THIAZIDE (HYDROCHLOR OTHIAZIDE), 12.5 MG, TABLET, ORAL, [facility], 1000 ea. BOTTLE Active [id number] 2023 30 Pharmac y Data Transac tion Service Facilit y LEVOTHYROXI NE SODIUM (levothyrox ine sodium), 137 MCG, TABLET, ORAL, [facility], 1000 ea. BOTTLE Active [id number] 2023 30 Pharmac y Data Transac tion Service Facilit y LEVOTHYROXI NE SODIUM (levothyrox ine sodium), 137 MCG, TABLET, ORAL, [facility], 1000 ea. BOTTLE Active [id number] 4 2023 30 Pharmac y Data Transac tion Service Facilit y LEVOTHYROXI NE SODIUM (levothyrox ine sodium), 137 MCG, TABLET, ORAL, [facility], 1000 ea. BOTTLE Active [id number] 2023 30 Pharmac y Data Transac tion Service Facilit y LIDOCAINE-H YDROCORTISO NE (HYDROCORTI SONE AC/LIDOCAIN E), 0.5 %-3 %, CREAM (G), TOPICAL, [facility], 28.35 g TUBE Cancele d [id number] : 2023 0 Pharmac y Data Transac tion Service Facilit y LOSARTAN POTASSIUM (LOSARTAN POTASSIUM), 100 MG, TABLET, ORAL, [facility], 1000 ea. BOTTLE Active [id number] 2023 14 Pharmac y Data Transac tion Service Facilit y LOSARTAN POTASSIUM (LOSARTAN POTASSIUM), 100 MG, TABLET, ORAL, [facility], 1000 ea. BOTTLE Active [id number] 2023 30 Pharmac y Data Transac tion Service Facilit y LOSARTAN POTASSIUM (LOSARTAN POTASSIUM), 100 MG, TABLET, ORAL, [facility], 1000 ea. BOTTLE Active [id number] 2023 30 Pharmac y Data Transac tion Service Facilit y LOSARTAN POTASSIUM (LOSARTAN POTASSIUM), 100 MG, TABLET, ORAL, [facility], 1000 ea. BOTTLE Active [id number] 2023 30 Pharmac y Data Transac tion Service Facilit y LOSARTAN POTASSIUM (LOSARTAN POTASSIUM), 100 MG, TABLET, ORAL, [facility], 1000 ea. BOTTLE Active [id number] 2023 30 Pharmac y Data Transac tion Service Facilit y LOSARTAN POTASSIUM (LOSARTAN POTASSIUM), 50 MG, TABLET, ORAL, [facility], 1000 ea. BOTTLE Active [id number] 2023 30 Pharmac y Data Transac tion Service Facilit y MUPIROCIN (MUPIROCIN) , 2%, OINT.(GM), TOPICAL, [employer] 22 g TUBE Active [id number] 4 2023 22 Pharmac y Data Transac tion Service Facilit y OMEPRAZOLE (omeprazole ), 40 MG, CAPSULE DR, ORAL, [employer] [facility]ARMA, 1000 ea. BOTTLE Active [id number] 2023 14 Pharmac y Data Transac tion Service Facilit y OMEPRAZOLE (omeprazole ), 40 MG, CAPSULE DR, ORAL, GL[employer]MARK [facility]ARMA, 1000 ea. BOTTLE Active [id number] 2023 30 Pharmac y Data Transac tion Service Facilit y OMEPRAZOLE (omeprazole ), 40 MG, CAPSULE DR, ORAL, [employer] [facility]ARMA, 1000 ea. BOTTLE Active [id number] 2023 30 Pharmac y Data Transac tion Service Facilit y OMEPRAZOLE (omeprazole ), 40 MG, CAPSULE DR, ORAL, [employer] [facility]ARMA, 1000 ea. BOTTLE Active [id number] 2023 30 Pharmac y Data Transac tion Service Facilit y OXYBUTYNIN CHLORIDE ER (OXYBUTYNIN CHLORIDE), 5 MG, TAB ER 24, ORAL, [employer], 500 ea. BOTTLE Active [id number] 2023 14 Pharmac y Data Transac tion Service Facilit y TRAMADOL HCL (tramadol HCl), 50 MG, TABLET, ORAL, AM[facility]AL [facility]ARMACE, 500 ea. BOTTLE Active [id number] 2023 30 Pharmac y Data Transac tion Service Facilit y TRAMADOL HCL (tramadol HCl), 50 MG, TABLET, ORAL, AM[facility]AL [facility]ARMACE, 500 ea. BOTTLE Active [id number] 2023 30 Pharmac y Data Transac tion Service Facilit y VENLAFAXINE HCL (venlafaxin e HCl), 75 MG, TABLET, ORAL, [facility], 100 ea. BOTTLE Active [id number] 2023 90 Pharmac y Data Transac tion Service Facilit y VENLAFAXINE HCL (venlafaxin e HCl), 75 MG, TABLET, ORAL, [facility], 100 ea. BOTTLE Active [id number] 2023 90 Pharmac y Data Transac tion Service Facilit y VENLAFAXINE HCL (venlafaxin e HCl), 75 MG, TABLET, ORAL, [facility], 100 ea. BOTTLE Active [id number] 2023 90 Pharmac y Data Transac tion Service Facilit y VENLAFAXINE HCL (venlafaxin e HCl), 75 MG, TABLET, ORAL, [facility], 100 ea. BOTTLE Active [id number] 2023 90 Pharmac y Data Transac tion Service Facilit y VENLAFAXINE HCL (VENLAFAXIN E HCL), 75 MG, TABLET, ORAL, [facility], 100 ea. BOTTLE Active [id number] 2023 42 Pharmac y Data Transac tion Service Facilit y Social History Combined list of available smoking, tobacco, and other social history from Department of Defense and Veterans Affairs facilities. Social History Type Response Date Comment [facility] e This section is an empty social history section. DoD
--- OUTSIDE RECORDS SUMMARY | 2023-08-16 10:53 | XMS_ITS | Clinical Summary ---
Author Name Unknown Organization [place] Address [facility] [place] [address] Care Team Providers Care Automobile Locator Name Role Phone Juan Rojas MD Primary Care Provider [phone] Allergies Active Allergy Reactions Criticality Noted Date [...] Comments Blood Pressure 155/66 03/27/2023 8:11 AM GUEST REQUEST RUNNER Pulse 90 03/27/2023 8:11 AM GUEST REQUEST RUNNER Temperature 36.5 ??C (97.7 ??F) 03/27/2023 8:11 AM CS T Respiratory Rate 18 03/27/2023 8:11 AM GUEST REQUEST RUNNER Oxygen Saturation 93% 03/27/2023 8:11 AM GUEST REQUEST RUNNER Inhaled Oxygen Concentration - - Weight 98.3 kg (216 lb 11.4 oz) 03/22/2023 3:57 PM GUEST REQUEST RUNNER Height 160 cm (5' 3) 03/22/2023 5:00 PM GUEST REQUEST RUNNER Body Mass Index 38.39 03/22/2023 3:57 PM GUEST REQUEST RUNNER Plan of Treatment Health Maintenance Due Date [...] BASIC METABOLIC PANEL Routine 03/27/2023 6:31 AM GUEST REQUEST RUNNER from Last 3 Months or Most Recently Relevant to Health Maintenance Results * (ABNORMAL) Basic metabolic panel (03/27/2023 6:31 AM GUEST REQUEST RUNNER) Sodium 134(L) 135 - 145 mmol/L 03/27/2023 6:59 AM GUEST REQUEST RUNNER [facility] Comment:Reference intervals for this test were updated on 01/24/2023 to more accurately reflect our healthy population. There may be differences in the flagging of prior results with similar values performed with this method. Interpretation of those prior results can be made in the context of the updated reference intervals. Potassium 4.1 3.4 - 5.3 mmol/L 03/27/2023 6:59 AM GUEST REQUEST RUNNER [facility] Chloride 101 98 - 107 mmol/L 03/27/2023 6:59 AM GUEST REQUEST RUNNER [facility] Carbon Dioxide (CO2) 24 22 - 29 mmol/L 03/27/2023 6:59 AM GUEST REQUEST RUNNER [facility] Anion Gap 9 7 - 15 mmol/L 03/27/2023 6:59 AM GUEST REQUEST RUNNER [facility] Urea Nitrogen 15.5 8.0 - 23.0 mg/dL 03/27/2023 6:59 AM GUEST REQUEST RUNNER [facility] Creatinine 0.84 0.51 - 0.95 mg/dL 03/27/2023 6:59 AM GUEST REQUEST RUNNER [facility] GFR Estimate 72 >60 mL/min/1. 73m2 03/27/2023 6:59 AM [facility] Calcium 8.5(L) 8.8 - 10.2 mg/dL 03/27/2023 6:59 AM [facility] Glucose 102(H) 70 - 99 mg/dL 03/27/2023 6:59 AM [facility] Blood STRUCTURE OF RIGHT UPPER LIMB / Unknown Venipuncture / Unknown 03/27/2023 6:31 AM GUEST REQUEST RUNNER 03/27/2023 6:39 AM GUEST REQUEST RUNNER Bernice Stearns MD LAB - BLOOD ORDER MILE [facility] Acute Care Lab [address] Lab (1st floor, no room number) [place] [address], [facility] [[email or web address]] [phone] from Last 3 Months or Most Recently Relevant to Health Maintenance Advance Directives For more information, please contact: [phone] * Full Code (Latest Code Status on File) Date Activated Date Inactivated Comments 03/22/2023 6:21 PM 03/27/2023 3:49 PM All basic and advanced life-sustaining interventions are performed as appropriate Question Answer Comments Code status determined by: Discussion with patie nt/ legal decision maker Care Teams Automobile Locator Relationship Specialty Start Date End Date Juan Rojas MD [address] [place] [place] [address] PCP - General Family Medicine 03/23/23
--- OUTSIDE RECORDS SUMMARY | 2023-08-16 10:53 | XMS_ITS | Clinical Summary ---
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 Normal LV size, mildly increased wall thickness, normal function withan estimated EF of 65 - 70%. 2. Right ventricular cavity size is normal, global systolic RV functionis normal. 3. Moderately enlarged left atrium. 4. Dynamic LVOT obstruction, peak gradient 94mmHg. The aortic valve opensnormally on 2D. 5. The mitral valve is sclerotic with significant MAC, mild mitralregurgitation. Severely elevated mean gradient (12mmHg, 82bpm SR) unableto calculate MVA w/ either p1/2 or continuity. 6. Mildly increased estimated pulmonary pressure (35 mmHg plus RAP). Comparison Compared to prior exam of 10/05/2021: The MV MG has increased 7-->12mmHg atsimilar HR. Chamber Sizes and Function Normal left ventricular size, mildly increased wall thickness, normalglobal systolic function with an estimated EF of 65 - 70%. Left atrialsize is moderately enlarged. Right ventricular cavity size is normal,global systolic RV function is normal. RV wall thickness is normal. Theright atrium is normal. The pulmonary artery is not well visualized. Thesinus of Valsalva is normal sized. The ascending aorta is normal sized. Valves, RV Pressures and Diastolic Function The aortic valve is normal in structure and trileaflet, no stenosis and noregurgitation. The mitral valve is sclerotic, mild mitral regurgitation.Indeterminate pattern of LV diastolic filling. The tricuspid valve isnormal in structure. Tricuspid regurgitation is mild regurgitation. Thetricuspid regurgitant velocity is 3.0 m/s, the estimated right ventricularsystolic pressure is 35 mmHg plus right atrial pressure. There is mildlyincreased estimated pulmonary pressure by tricuspid regurgitation velocityand right atrial pressure. The pulmonic valve is not well visualized.Trace pulmonary regurgitation. Masses, Effusion, Shunts There is no pericardial effusion. The inferior vena cava is normal sized,respiratory size variation greater than 50%. No left to right shunting wasdetected by limited color flow Doppler interrogation of the interatrialseptum. MEASUREMENTS AND CALCULATIONS 2-D Measurements and LV Function: LVID (d) 3.7 cm LV FS% (2D) 34 % LVID (s) 2.5 cm LVOT diameter 2.0 cm IVS (d) 1.5 cm HR 82 bpm LVPW (d) 1.3 cm RV Max 4C (d) 4.3 cm Ao Sinus 2.9 cm Asc Ao 3.1 cm LA 5.0 cm Diastology: Mitral Tissue Doppler E Peak 1.7 m/s e', Septum 0.04 m/s A Peak 2.1 m/s e', Lateral 0.06 m/s E/A 0.8 E/e' Average 36.88 DT 288 msec Aortic Valve: Vmax 2.1 m/s BEN (V) 7.22 cm? ? ? VTI 0.40 m BEN (I) 5.06 cm? ? ? LVOT V max 4.7 m/s Max PG 17 mmHg LVOT VTI 0.63 m Mean PG 9 mmHg SV 202 ml Dim Index 1.58 SV index 108 ml/m? ? ? CO 16.6 l/min CI 8.9 l/min/m? ? ? Mitral Valve: MVA 2.6 cm? ? ? MV P 1/2 84 msec MV Mean G 12 mmHg MV VTI 0.56 m Tricuspid Valve and estimated PA pressures: TR Vmax 3.0 m/s TAPSE 2.2 cm TR maxG 35 mmHg . This study was interpreted by an [facility] accredited facility. Final Prabha GORE ECHO ORD * EXTENDED HOLTER (08/04/2023) Prabha GORE CARDIAC SERVICES O RD * (ABNORMAL) CBC W PLT NO DIFF (07/11/2023 7:52 AM T) WHITE BLOOD COUNT 6.4 4.5 - 11.0 thou/cu mm 07/11/2023 9:02 AM [facility] RED BLOOD COUNT 3.66(L) 4.00 - 5.20 mil/cu mm 07/11/2023 9:02 AM [facility] HEMOGLOBIN 10.7(L) 12.0 - 16.0 g/dL 07/11/2023 9:02 AM [facility] HEMATOCRIT 34.7 33.0 - 51.0 % 07/11/2023 9:02 AM [facility] MCV 95 80 - 100 fL 07/11/2023 9:02 AM [facility] MCH 29.2 26.0 - 34.0 pg 07/11/2023 9:02 AM [facility] MCHC 30.8(L) 32.0 - 36.0 g/dL 07/11/2023 9:02 AM T [facility] RDW 15.9(H) 11.5 - 15.5 % 07/11/2023 9:02 AM T [facility] PLATELET COUNT 355 140 - 440 thou/cu mm 07/11/2023 9:02 AM T [facility] MPV 10.3 6.5 - 11.0 fL 07/11/2023 9:02 AM T [facility] Blood BLOOD SPECIMEN / Unknown Butterfly / Unknown 07/11/2023 7:52 AM CDT 07/11/2023 8:53 AM CDT Westley Orta MD HEMATOLOGY Performing Organization Address [facility]/ZIP Co de Phone Number [facility] [address] [place] [address] * (ABNORMAL) ALBUMIN (07/11/2023 7:52 AM CDT) Pathologist [facility] ALBUMIN 3.6(L) 4.0 - 4.9 g/dL 07/11/2023 9:20 AM T [facility] Blood BLOOD SPECIMEN / Unknown Butterfly / Unknown 07/11/2023 7:52 AM CDT 07/11/2023 8:53 AM CDT Westley Orta MD CHEMISTRY Performing Organization Address [facility]/State/ZIP Co de Phone Number [facility] [address] [place] [address] * (ABNORMAL) BASIC METABOLIC PANEL (07/11/2023 7:52 AM CDT) SODIUM 132(L) 136 - 145 mmol/L 07/11/2023 9:20 AM T [facility] POTASSIUM 4.7 3.5 - 5.1 mmol/L 07/11/2023 9:20 AM T [facility] CHLORIDE 102 98 - 107 mmol/L 07/11/2023 9:20 AM [facility] CO2,TOTAL 21(L) 22 - 29 mmol/L 07/11/2023 9:20 AM [facility] ANION GAP 9 5 - 18 07/11/2023 9:20 AM [facility] GLUCOSE 129(H) 70 - 99 mg/dL 07/11/2023 9:20 AM [facility] CALCIUM 9.7 8.8 - 10.2 mg/dL 07/11/2023 9:20 AM [facility] BUN 10 8 - 23 mg/dL 07/11/2023 9:20 AM [facility] CREATININE 0.62 0.50 - 0.90 mg/dL 07/11/2023 9:20 AM [facility] BUN/CREAT RATIO 16 10 - 20 9:20 AM [facility] eGFR >90 >90 mL/min/1.7 3m2 07/11/2023 9:20 AM [facility] Comment:As of 2021, eG FR is calculated by the CKD-EPI creatinine equation without race adjustment. ??eGFR can be influenced by muscle mass, exercise, and diet. ??The reported eGFR is an estimation only and is only applicable if the renal function is stable. Blood BLOOD SPECIMEN / Unknown Butterfly / Unknown 07/11/2023 7:52 AM CDT 07/11/2023 8:53 AM [facility] Westley Orta MD CHEMISTRY [facility] [address] [place] [address] * (ABNORMAL) RED CELL MORPHOLOGY (06/20/2023 7:06 AM HYDRAULIC BULL RIVETER OPERATOR) POLYCHROMASIA Slight 06/20/2023 8:39 AM HYDRAULIC BULL RIVETER OPERATOR [facility] RBC COMMENT Present(A) RBC morphology appears normal, RBC morphology within normal limits for newborns. 06/20/2023 8:39 AM [facility] Blood BLOOD SPECIMEN / Unknown Butterfly / Unknown 06/20/2023 7:06 AM HYDRAULIC BULL RIVETER OPERATOR 06/20/2023 8:11 AM HYDRAULIC BULL RIVETER OPERATOR Westley Orta MD HEMATOLOGY Performing Organization Address City/[facility]/ZIP Co de Phone Number [facility] [address] [place] [address] * PLATELET ESTIMATE (06/20/2023 7:06 AM HYDRAULIC BULL RIVETER OPERATOR) PLATELET ESTIMATE Adequate Adequate, No estimate 06/20/2023 8:39 AM HYDRAULIC BULL RIVETER OPERATOR [facility] Blood BLOOD SPECIMEN / Unknown Butterfly / Unknown 06/20/2023 7:06 AM HYDRAULIC BULL RIVETER OPERATOR 06/20/2023 8:11 AM HYDRAULIC BULL RIVETER OPERATOR Westley Orta MD HEMATOLOGY Performing Organization Address [facility] Co de Phone Number [facility] [address] [place] [address] * SCAN-OPERATIVE/PROCEDURE REPORT (05/29/2023 12:00 AM HYDRAULIC BULL RIVETER OPERATOR) Scanner OTHER * SCAN-CT INTERPRETATION (05/24/2023 12:00 AM HYDRAULIC BULL RIVETER OPERATOR) Anatomical Region Laterality Modality Other Scanner OTHER * CT ABDOMEN PELVIS WO (05/19/2023 1:36 PM HYDRAULIC BULL RIVETER OPERATOR) Anatomical Region Laterality Modality Abdomen, Pelvis, AORTA, LIVER, SPLEEN Computed Tomography 05/19/2023 2:14 PM HYDRAULIC BULL RIVETER OPERATOR Narrative 05/19/2023 2:14 PM HYDRAULIC BULL RIVETER OPERATOR For Patients: ??As a result of the 21st Century Cures Act, medical imaging exams and procedure [...] For Patients: As a result of the Century Cures Act, medical imagingexams and procedure [...] 2023 2:14PM (Electronically Signed) Prabha GORE CT from Last 3 Months Advance Directives Documents on File Type Date Recorded Patient Light Technician Expl anation POLST 07/18/2023 Care Teams Service Electrician Relationship Specialty Start Date End Date Prabha Nice PA [address] [place] [address] PCP - General Physician Forensic Economist 05/18/23
--- OUTSIDE RECORDS SUMMARY | 2023-08-16 10:53 | XMS_ITS | Referral Summary ---
Author Name Unknown Organization [place] Address [facility] [place] [address] Care Team Providers Care Audit Clerk Name Role Phone Juan Rojas MD Primary Care Provider [phone] Allergies Active Allergy Reactions Criticality Noted Date [...] Comments Blood Pressure 155/66 03/27/2023 8:11 AM SQUEEGEE FINISHER Pulse 90 03/27/2023 8:11 AM SQUEEGEE FINISHER Temperature 36.5 ??C (97.7 ??F) 03/27/2023 8:11 AM CS T Respiratory Rate 18 03/27/2023 8:11 AM SQUEEGEE FINISHER Oxygen Saturation 93% 03/27/2023 8:11 AM SQUEEGEE FINISHER Inhaled Oxygen Concentration - - Weight 98.3 kg (216 lb 11.4 oz) 03/22/2023 3:57 PM SQUEEGEE FINISHER Height 160 cm (5' 3) 03/22/2023 5:00 PM SQUEEGEE FINISHER Body Mass Index 38.39 03/22/2023 3:57 PM SQUEEGEE FINISHER Plan of Treatment Not on file Procedures Procedure Name Priority Date/Time Associated Diagnosis Comments BASIC METABOLIC PANEL Routine 03/27/2023 6:31 AM SQUEEGEE FINISHER from Last 3 Months or Most Recently Relevant to Health Maintenance Results * (ABNORMAL) Basic metabolic panel (03/27/2023 6:31 AM SQUEEGEE FINISHER) [facility] Sodium 134(L) 135 - 145 mmol/L 03/27/2023 6:59 AM SQUEEGEE FINISHER [facility] Comment:Reference intervals for this test were updated on 01/24/2023 to more accurately reflect our healthy population. There may be differences in the flagging of prior results with similar values performed with this method. Interpretation of those prior results can be made in the context of the updated reference intervals. Potassium 4.1 3.4 - 5.3 mmol/L 03/27/2023 6:59 AM [facility] Chloride 101 98 - 107 mmol/L 03/27/2023 6:59 AM [facility] Carbon Dioxide (CO2) 24 22 - 29 mmol/L 03/27/2023 6:59 AM [facility] Anion Gap 9 7 - 15 mmol/L 03/27/2023 6:59 AM SQUEEGEE FINISHER [facility] Urea Nitrogen 15.5 8.0 - 23.0 mg/dL 03/27/2023 6:59 AM SQUEEGEE FINISHER [facility] Creatinine 0.84 0.51 - 0.95 mg/dL 03/27/2023 6:59 AM [facility] GFR Estimate 72 >60 mL/min/1. 73m2 03/27/2023 6:59 AM [facility] Calcium 8.5(L) 8.8 - 10.2 mg/dL 03/27/2023 6:59 AM [facility] Glucose 102(H) 70 - 99 mg/dL 03/27/2023 6:59 AM [facility] Blood STRUCTURE OF RIGHT UPPER LIMB / Unknown Venipuncture / Unknown 03/27/2023 6:31 AM SQUEEGEE FINISHER 03/27/2023 6:39 AM SQUEEGEE FINISHER Bernice Stearns MD LAB - BLOOD ORDER [facility] [address] Lab (1st floor, no room number) [place] [address], [facility] [phone] from Last 3 Months or Most Recently Relevant to Health Maintenance Advance Directives For more information, please contact: [phone] * Full Code (Latest Code Status on File) Date Activated Date Inactivated Comments 03/22/2023 6:21 PM 03/27/2023 3:49 PM All basic and advanced life-sustaining interventions are performed as appropriate Question Answer Comments Code status determined by: Discussion with patie nt/ legal decision maker Care Teams Audit Clerk Relationship Specialty Start Date End Date Juan Rojas MD [facility] [address] [place] [place] [address] PCP - General Family Medicine 03/23/23
== END 2023-08-16 10:52 | disposition home or self-care (01) ==
LOC: WOUND 10:51
PROVIDERS: PCP Physician Assistant; Visit Provider Surgery
DX: T81.31XA Disruption of external operation (surgical) wound, not elsewhere classified, initial encounter (principal); S31.000A Unspecified open wound of lower back and pelvis without penetration into retroperitoneum, initial encounter
CPT/HCPCS: 11042

== ENCOUNTER 2023-08-23 10:51 | Outpatient (CLI) | payer MEDICARE, OTHER, SELFPAY ==
--- OUTSIDE RECORDS SUMMARY | 2023-08-23 10:53 | XMS_ITS | Clinical Summary ---
Author Name Unknown Organization [place] Address [facility] [place] [address] Care Team Providers Care Load Haul Dump Operator Name Role Phone Juan Rojas MD Primary Care Provider [phone] Allergies Active Allergy Reactions Criticality Noted Date [...] Comments Blood Pressure 155/66 03/27/2023 8:11 AM CUSTOMER SERVICE AND SALES CONSULTANT Pulse 90 03/27/2023 8:11 AM CUSTOMER SERVICE AND SALES CONSULTANT Temperature 36.5 ??C (97.7 ??F) 03/27/2023 8:11 AM CS T Respiratory Rate 18 03/27/2023 8:11 AM CUSTOMER SERVICE AND SALES CONSULTANT Oxygen Saturation 93% 03/27/2023 8:11 AM CUSTOMER SERVICE AND SALES CONSULTANT Inhaled Oxygen Concentration - - Weight 98.3 kg (216 lb 11.4 oz) 03/22/2023 3:57 PM CUSTOMER SERVICE AND SALES CONSULTANT Height 160 cm (5' 3) 03/22/2023 5:00 PM CUSTOMER SERVICE AND SALES CONSULTANT Body Mass Index 38.39 03/22/2023 3:57 PM CUSTOMER SERVICE AND SALES CONSULTANT Plan of Treatment Health Maintenance Due Date [...] BASIC METABOLIC PANEL Routine 03/27/2023 6:31 AM CUSTOMER SERVICE AND SALES CONSULTANT from Last 3 Months or Most Recently Relevant to Health Maintenance Results * (ABNORMAL) Basic metabolic panel (03/27/2023 6:31 AM CUSTOMER SERVICE AND SALES CONSULTANT) Sodium 134(L) 135 - 145 mmol/L 03/27/2023 6:59 AM CUSTOMER SERVICE AND SALES CONSULTANT [facility] Comment:Reference intervals for this test were updated on 01/24/2023 to more accurately reflect our healthy population. There may be differences in the flagging of prior results with similar values performed with this method. Interpretation of those prior results can be made in the context of the updated reference intervals. Potassium 4.1 3.4 - 5.3 mmol/L 03/27/2023 6:59 AM CUSTOMER SERVICE AND SALES CONSULTANT [facility] Chloride 101 98 - 107 mmol/L 03/27/2023 6:59 AM CUSTOMER SERVICE AND SALES CONSULTANT [facility] Carbon Dioxide (CO2) 24 22 - 29 mmol/L 03/27/2023 6:59 AM CUSTOMER SERVICE AND SALES CONSULTANT [facility] Anion Gap 9 7 - 15 mmol/L 03/27/2023 6:59 AM CUSTOMER SERVICE AND SALES CONSULTANT [facility] Urea Nitrogen 15.5 8.0 - 23.0 mg/dL 03/27/2023 6:59 AM CUSTOMER SERVICE AND SALES CONSULTANT [facility] Creatinine 0.84 0.51 - 0.95 mg/dL 03/27/2023 6:59 AM CUSTOMER SERVICE AND SALES CONSULTANT [facility] GFR Estimate 72 >60 mL/min/1. 73m2 03/27/2023 6:59 AM [facility] Calcium 8.5(L) 8.8 - 10.2 mg/dL 03/27/2023 6:59 AM [facility] Glucose 102(H) 70 - 99 mg/dL 03/27/2023 6:59 AM [facility] Blood STRUCTURE OF RIGHT UPPER LIMB / Unknown Venipuncture / Unknown 03/27/2023 6:31 AM CUSTOMER SERVICE AND SALES CONSULTANT 03/27/2023 6:39 AM CUSTOMER SERVICE AND SALES CONSULTANT Bernice Stearns MD LAB - BLOOD ORDER [facility] Acute Care Lab [address] Lab (1st floor, no room number) [place] [address], [facility] [phone] from Last 3 Months or Most Recently Relevant to Health Maintenance Advance Directives For more information, please contact: [phone] * Full Code (Latest Code Status on File) Date Activated Date Inactivated Comments 03/22/2023 6:21 PM 03/27/2023 3:49 PM All basic and advanced life-sustaining interventions are performed as appropriate Question Answer Comments Code status determined by: Discussion with patie nt/ legal decision maker Care Teams Load Haul Dump Operator Relationship Specialty Start Date End Date Juan Rojas MD [address] [place] [address] PCP - General Family Medicine 03/23/23
--- OUTSIDE RECORDS SUMMARY | 2023-08-23 10:53 | XMS_ITS | Referral Summary ---
Author Name Unknown Organization [place] Address [facility] [place] [address] Care Team Providers Care Digital Developer Name Role Phone Juan Rojas MD Primary Care Provider [phone] Allergies Active Allergy Reactions Criticality Noted Date [...] Comments Blood Pressure 155/66 03/27/2023 8:11 AM ATHLETIC INSTRUCTOR Pulse 90 03/27/2023 8:11 AM ATHLETIC INSTRUCTOR Temperature 36.5 ??C (97.7 ??F) 03/27/2023 8:11 AM CS T Respiratory Rate 18 03/27/2023 8:11 AM ATHLETIC INSTRUCTOR Oxygen Saturation 93% 03/27/2023 8:11 AM ATHLETIC INSTRUCTOR Inhaled Oxygen Concentration - - Weight 98.3 kg (216 lb 11.4 oz) 03/22/2023 3:57 PM ATHLETIC INSTRUCTOR Height 160 cm (5' 3) 03/22/2023 5:00 PM ATHLETIC INSTRUCTOR Body Mass Index 38.39 03/22/2023 3:57 PM ATHLETIC INSTRUCTOR Plan of Treatment Not on file Procedures Procedure Name Priority Date/Time Associated Diagnosis Comments BASIC METABOLIC PANEL Routine 03/27/2023 6:31 AM ATHLETIC INSTRUCTOR from Last 3 Months or Most Recently Relevant to Health Maintenance Results * (ABNORMAL) Basic metabolic panel (03/27/2023 6:31 AM ATHLETIC INSTRUCTOR) [facility] Sodium 134(L) 135 - 145 mmol/L 03/27/2023 6:59 AM ATHLETIC INSTRUCTOR [facility] Comment:Reference intervals for this test were updated on 01/24/2023 to more accurately reflect our healthy population. There may be differences in the flagging of prior results with similar values performed with this method. Interpretation of those prior results can be made in the context of the updated reference intervals. Potassium 4.1 3.4 - 5.3 mmol/L 03/27/2023 6:[address] [facility] Chloride 101 98 - 107 mmol/L 03/27/2023 6:[address] [facility] Carbon Dioxide (CO2) 24 22 - 29 mmol/L 03/27/2023 6:[address] [facility] Anion Gap 9 7 - 15 mmol/L 03/27/2023 6:59 AM ATHLETIC INSTRUCTOR LAB[facility] Urea Nitrogen 15.5 8.0 - 23.0 mg/dL 03/27/2023 6:59 AM ATHLETIC INSTRUCTOR LAB[facility]ORY Creatinine 0.84 0.51 - 0.95 mg/dL 03/27/2023 6:[address] [facility] GFR Estimate 72 >60 mL/min/1. 73m2 03/27/2023 6:[address] [facility] Calcium 8.5(L) 8.8 - 10.2 mg/dL 03/27/2023 6:[address] [facility] Glucose 102(H) 70 - 99 mg/dL 03/27/2023 6:[address] [facility] Blood STRUCTURE OF RIGHT UPPER LIMB / Unknown Venipuncture / Unknown 03/27/2023 6:31 AM ATHLETIC INSTRUCTOR 03/27/2023 6:39 AM ATHLETIC INSTRUCTOR Bernice Stearns MD LAB - BLOOD ORDER MILE [facility] Acute Care Lab [address] Lab (1st floor, no room number) [place] [address], [facility] [phone] from Last 3 Months or Most Recently Relevant to Health Maintenance Advance Directives For more information, please contact: [phone] * Full Code (Latest Code Status on File) Date Activated Date Inactivated Comments 03/22/2023 6:21 PM 03/27/2023 3:49 PM All basic and advanced life-sustaining interventions are performed as appropriate Question Answer Comments Code status determined by: Discussion with patie nt/ legal decision maker Care Teams Digital Developer Relationship Specialty Start Date End Date Juan Rojas MD [facility] [address] [place] [address] PCP - General Family Medicine 03/23/23
--- OUTSIDE RECORDS SUMMARY | 2023-08-23 10:54 | XMS_ITS | Continuity of Care Document ---
Author Name [facility] Organization [facility] Care Team Providers Care Staff Attorney Name Role Phone [facility] Unavailable Unavailable Medications Combined list of outpatient [...] ORAL, APOTEX ORION, 1000 ea. BOTTLE Active [id number] 4 2023 14 Pharmac y Data Transac tion Service Facilit y ATORVASTATI N CALCIUM (atorvastat in calcium), 20 MG, TABLET, ORAL, [facility], 500 ea. BOTTLE Active [id number] 4 2023 30 Pharmac y Data Transac tion Service Facilit y atorvastati n calcium ([employer]) 1000 TABLET in 1 BOTTLE Active [id number] 2023 30 Pharmac y Data Transac tion Service Facilit y atorvastati n calcium ([employer]) 1000 TABLET in 1 BOTTLE Active [id number] 4 2023 30 Pharmac y Data Transac tion Service Facilit y BUPROPION HCL (bupropion HCl), 100 MG, TABLET, ORAL, [employer] [facility], 100 ea. BOTTLE Active [id number] 4 2023 28 Pharmac y Data Transac tion Service Facilit y BUPROPION HCL (BUPROPION HCL), 100MG, TABLET, ORAL, APOTEX ORION, 100 ea. BOTTLE Active [id number] 4 2023 90 Pharmac y Data Transac tion Service Facilit y BUPROPION HCL (BUPROPION HCL), 100MG, TABLET, ORAL, APOTEX ORION, 100 ea. BOTTLE Active [id number] 4 2023 90 Pharmac y Data Transac tion Service Facilit y BUPROPION HCL (BUPROPION HCL), 100MG, TABLET, ORAL, APOTEX ORION, 100 ea. BOTTLE Active [id number] 4 2023 90 Pharmac y Data Transac tion Service Facilit y CETIRIZINE HCL (CETIRIZINE HCL), 5MG, TABLET, ORAL, MYLAN, 100 ea. BOTTLE Active [id number] 2023 15 Pharmac y Data Transac tion Service Facilit y CETIRIZINE HCL (CETIRIZINE HCL), 5MG, TABLET, ORAL, MYLAN, 100 ea. BOTTLE Active [id number] 2023 15 Pharmac y Data Transac tion Service Facilit y CETIRIZINE HCL (CETIRIZINE HCL), 5MG, TABLET, ORAL, MYLAN, 100 ea. BOTTLE Active [id number] 4 2023 15 Pharmac y Data Transac tion Service Facilit y FLUCONAZOLE (fluconazol e), 100 MG, TABLET, ORAL, [facility], 100 ea. BOTTLE Active [id number] 2023 14 Pharmac y Data Transac tion Service Facilit y FUROSEMIDE (FUROSEMIDE ), 20MG, TABLET, ORAL, [facility] 1000 ea. BOTTLE Active [id number] 4 2023 8 Pharmac y Data Transac tion Service Facilit y FUROSEMIDE (FUROSEMIDE ), 20MG, TABLET, ORAL, [facility] 1000 ea. BOTTLE Active [id number] 4 2023 8 Pharmac y Data Transac tion Service Facilit y GABAPENTIN (gabapentin ), 600 MG, TABLET, ORAL, [facility], 500 ea. BOTTLE Active [id number] 4 2023 120 Pharmac y Data Transac tion Service Facilit y GABAPENTIN (GABAPENTIN ), 600 MG, TABLET, ORAL, [facility], 500 ea. BOTTLE Active [id number] 4 2023 120 Pharmac y Data Transac tion Service Facilit y GABAPENTIN (gabapentin ), 600 MG, TABLET, ORAL, [employer] [facility], 500 ea. BOTTLE Active [id number] 4 2023 63 Pharmac y Data Transac tion Service Facilit y GABAPENTIN (gabapentin ), 600 MG, TABLET, ORAL, [facility], 500 ea. BOTTLE Active [id number] 4 2023 135 Pharmac y Data Transac tion Service Facilit y HYDROCHLORO THIAZIDE (hydrochlor othiazide), 12.5 MG, CAPSULE, ORAL, [facility], 500 ea. BOTTLE Active [id number] 4 2023 14 Pharmac y Data Transac tion Service Facilit y HYDROCHLORO THIAZIDE (HYDROCHLOR OTHIAZIDE), 12.5 MG, TABLET, ORAL, [facility], 1000 ea. BOTTLE Active [id number] 2023 30 Pharmac y Data Transac tion Service Facilit y HYDROCHLORO THIAZIDE (HYDROCHLOR OTHIAZIDE), 12.5 MG, TABLET, ORAL, [facility], 1000 ea. BOTTLE Active [id number] 4 2023 30 Pharmac y Data Transac tion Service Facilit y HYDROCHLORO THIAZIDE (HYDROCHLOR OTHIAZIDE), 12.5 MG, TABLET, ORAL, [facility], 1000 ea. BOTTLE Active [id number] 4 2023 30 Pharmac y Data Transac tion Service Facilit y LEVOTHYROXI NE SODIUM (levothyrox ine sodium), 137 MCG, TABLET, ORAL, [facility], 1000 ea. BOTTLE Active [id number] 2023 30 Pharmac y Data Transac tion Service Facilit y LEVOTHYROXI NE SODIUM (levothyrox ine sodium), 137 MCG, TABLET, ORAL, [facility], 1000 ea. BOTTLE Active [id number] 4 2023 30 Pharmac y Data Transac tion Service Facilit y LEVOTHYROXI NE SODIUM (levothyrox ine sodium), 137 MCG, TABLET, ORAL, [facility], 1000 ea. BOTTLE Active [id number] 4 2023 30 Pharmac y Data Transac tion Service Facilit y LIDOCAINE-H YDROCORTISO NE (HYDROCORTI SONE AC/LIDOCAIN E), 0.5 %-3 %, CREAM (G), TOPICAL, [facility], 28.35 g TUBE Cancele d [id number] : 2023 0 Pharmac y Data Transac tion Service Facilit y LOSARTAN POTASSIUM (LOSARTAN POTASSIUM), 100 MG, TABLET, ORAL, [facility], 1000 ea. BOTTLE Active [id number] 4 2023 14 Pharmac y Data Transac tion Service Facilit y LOSARTAN POTASSIUM (LOSARTAN POTASSIUM), 100 MG, TABLET, ORAL, [facility], 1000 ea. BOTTLE Active [id number] 2023 30 Pharmac y Data Transac tion Service Facilit y LOSARTAN POTASSIUM (LOSARTAN POTASSIUM), 100 MG, TABLET, ORAL, [facility], 1000 ea. BOTTLE Active [id number] 2023 30 Pharmac y Data Transac tion Service Facilit y LOSARTAN POTASSIUM (LOSARTAN POTASSIUM), 100 MG, TABLET, ORAL, [facility], 1000 ea. BOTTLE Active [id number] 2023 30 Pharmac y Data Transac tion Service Facilit y LOSARTAN POTASSIUM (LOSARTAN POTASSIUM), 100 MG, TABLET, ORAL, [facility], 1000 ea. BOTTLE Active [id number] 2023 30 Pharmac y Data Transac tion Service Facilit y LOSARTAN POTASSIUM (LOSARTAN POTASSIUM), 50 MG, TABLET, ORAL, [facility], 1000 ea. BOTTLE Active [id number] 2023 30 Pharmac y Data Transac tion Service Facilit y MUPIROCIN (MUPIROCIN) , 2%, OINT.(GM), TOPICAL, [employer] 22 g TUBE Active [id number] 4 2023 22 Pharmac y Data Transac tion Service Facilit y OMEPRAZOLE (omeprazole ), 40 MG, CAPSULE DR, ORAL, [employer] [facility], 1000 ea. BOTTLE Active [id number] 2023 14 Pharmac y Data Transac tion Service Facilit y OMEPRAZOLE (omeprazole ), 40 MG, CAPSULE DR, ORAL, [facility], 1000 ea. BOTTLE Active [id number] 4 2023 30 Pharmac y Data Transac tion Service Facilit y OMEPRAZOLE (omeprazole ), 40 MG, CAPSULE DR, ORAL, [employer] [facility], 1000 ea. BOTTLE Active [id number] 2023 30 Pharmac y Data Transac tion Service Facilit y OMEPRAZOLE (omeprazole ), 40 MG, CAPSULE DR, ORAL, [employer] [facility], 1000 ea. BOTTLE Active [id number] 2023 30 Pharmac y Data Transac tion Service Facilit y OXYBUTYNIN CHLORIDE ER (OXYBUTYNIN CHLORIDE), 5 MG, TAB ER 24, ORAL, [employer], 500 ea. BOTTLE Active [id number] 2023 14 Pharmac y Data Transac tion Service Facilit y TRAMADOL HCL (tramadol HCl), 50 MG, TABLET, ORAL, [facility], 500 ea. BOTTLE Active [id number] 2023 30 Pharmac y Data Transac tion Service Facilit y TRAMADOL HCL (tramadol HCl), 50 MG, TABLET, ORAL, [facility], 500 ea. BOTTLE Active [id number] 2023 30 Pharmac y Data Transac tion Service Facilit y VENLAFAXINE HCL (venlafaxin e HCl), 75 MG, TABLET, ORAL, [facility], 100 ea. BOTTLE Active [id number] 2023 90 Pharmac y Data Transac tion Service Facilit y VENLAFAXINE HCL (venlafaxin e HCl), 75 MG, TABLET, ORAL, [facility], 100 ea. BOTTLE Active [id number] 3 2023 90 Pharmac y Data Transac tion Service Facilit y VENLAFAXINE HCL (venlafaxin e HCl), 75 MG, TABLET, ORAL, [facility], 100 ea. BOTTLE Active [id number] 4 2023 90 Pharmac y Data Transac tion Service Facilit y VENLAFAXINE HCL (venlafaxin e HCl), 75 MG, TABLET, ORAL, [facility], 100 ea. BOTTLE Active [id number] 4 2023 90 Pharmac y Data Transac tion Service Facilit y VENLAFAXINE HCL (VENLAFAXIN E HCL), 75 MG, TABLET, ORAL, [employer] [facility], 100 ea. 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 Social History Type Response Date Comment [facility] e This section is an empty social history section. [employer]
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
== END 2023-08-23 10:52 | disposition home or self-care (01) ==
LOC: WOUND 10:51
PROVIDERS: PCP Physician Assistant; Visit Provider Family Medicine
DX: T81.31XA Disruption of external operation (surgical) wound, not elsewhere classified, initial encounter (principal)
CPT/HCPCS: 11042

== ENCOUNTER 2023-08-30 10:49 | Outpatient (CLI) | payer MEDICARE, OTHER, SELFPAY ==
--- OUTSIDE RECORDS SUMMARY | 2023-08-30 10:52 | XMS_ITS | Referral Summary ---
Author Name Unknown Organization [place] Address [facility] [place] [address] Care Team Providers Care Senior Tax Manager Name Role Phone Juan Rojas MD Primary Care Provider [phone] Allergies Active Allergy Reactions Criticality Noted Date [...] Comments Blood Pressure 155/66 03/27/2023 8:11 AM DRILLING FIELD OPERATOR Pulse 90 03/27/2023 8:11 AM DRILLING FIELD OPERATOR Temperature 36.5 ??C (97.7 ??F) 03/27/2023 8:11 AM CS T Respiratory Rate 18 03/27/2023 8:11 AM DRILLING FIELD OPERATOR Oxygen Saturation 93% 03/27/2023 8:11 AM DRILLING FIELD OPERATOR Inhaled Oxygen Concentration - - Weight 98.3 kg (216 lb 11.4 oz) 03/22/2023 3:57 PM DRILLING FIELD OPERATOR Height 160 cm (5' 3) 03/22/2023 5:00 PM DRILLING FIELD OPERATOR Body Mass Index 38.39 03/22/2023 3:57 PM DRILLING FIELD OPERATOR Plan of Treatment Not on file Procedures Procedure Name Priority Date/Time Associated Diagnosis Comments BASIC METABOLIC PANEL Routine 03/27/2023 6:31 AM DRILLING FIELD OPERATOR from Last 3 Months or Most Recently Relevant to Health Maintenance Results * (ABNORMAL) Basic metabolic panel (03/27/2023 6:31 AM DRILLING FIELD OPERATOR) [facility] Sodium 134(L) 135 - 145 mmol/L 03/27/2023 6:59 AM DRILLING FIELD OPERATOR [facility] Comment:Reference intervals for this test were updated on 01/24/2023 to more accurately reflect our healthy population. There may be differences in the flagging of prior results with similar values performed with this method. Interpretation of those prior results can be made in the context of the updated reference intervals. Potassium 4.1 3.4 - 5.3 mmol/L 03/27/2023 6:59 AM DRILLING FIELD OPERATOR LABORATORY Chloride 101 98 - 107 mmol/L 03/27/2023 6:59 AM [facility] Carbon Dioxide (CO2) 24 22 - 29 mmol/L 03/27/2023 6:59 AM DRILLING FIELD OPERATOR LABORATORY Anion Gap 9 7 - 15 mmol/L 03/27/2023 6:59 AM DRILLING FIELD OPERATOR LABORATORY Urea Nitrogen 15.5 8.0 - 23.0 mg/dL 03/27/2023 6:59 AM DRILLING FIELD OPERATOR LABORATORY Creatinine 0.84 0.51 - 0.95 mg/dL 03/27/2023 6:59 AM [facility] GFR Estimate 72 >60 mL/min/1. 73m2 03/27/2023 6:59 AM [facility] Calcium 8.5(L) 8.8 - 10.2 mg/dL 03/27/2023 6:59 AM [facility] Glucose 102(H) 70 - 99 mg/dL 03/27/2023 6:59 AM DRILLING FIELD OPERATOR LABORATORY Blood STRUCTURE OF RIGHT UPPER LIMB / Unknown Venipuncture / Unknown 03/27/2023 6:31 AM DRILLING FIELD OPERATOR 03/27/2023 6:39 AM DRILLING FIELD OPERATOR Bernice Stearns MD LAB - BLOOD ORDER [facility] [address] Lab (1st floor, no room number) [place] [address], [facility] [phone] from Last 3 Months or Most Recently Relevant to Health Maintenance Advance Directives For more information, please contact: [phone] * Full Code (Latest Code Status on File) Date Activated Date Inactivated Comments 03/22/2023 6:21 PM 03/27/2023 3:49 PM All basic and advanced life-sustaining interventions are performed as appropriate Question Answer Comments Code status determined by: Discussion with patie nt/ legal decision maker Care Teams Senior Tax Manager Relationship Specialty Start Date End Date Juan Rojas MD PCP - General Family Medicine 03/23/23
--- OUTSIDE RECORDS SUMMARY | 2023-08-30 10:52 | XMS_ITS | Continuity of Care Document ---
Author Name [facility] Organization [facility] Care Team Providers Care Abrasive Coating Machine Operator Name Role Phone [facility] Unavailable Unavailable Medications Combined list of outpatient [...] ORAL, APOTEX ORION, 1000 ea. BOTTLE Active [id number] 4 2023 14 Pharmac y Data Transac tion Service Facilit y ATORVASTATI N CALCIUM (atorvastat in calcium), 20 MG, TABLET, ORAL, [facility], 500 ea. BOTTLE Active [id number] 4 2023 30 Pharmac y Data Transac tion Service Facilit y atorvastati n calcium ([employer]) 1000 TABLET in 1 BOTTLE Active [id number] 4 2023 30 Pharmac y Data Transac tion Service Facilit y atorvastati n calcium ([employer]) 1000 TABLET in 1 BOTTLE Active [id number] 2023 30 Pharmac y Data Transac tion Service Facilit y BUPROPION HCL (bupropion HCl), 100 MG, TABLET, ORAL, [facility], 100 ea. BOTTLE Active [id number] 2023 28 Pharmac y Data Transac tion Service Facilit y BUPROPION HCL (BUPROPION HCL), 100MG, TABLET, ORAL, APOTEX ORION, 100 ea. BOTTLE Active [id number] 2023 90 Pharmac y Data Transac tion Service Facilit y BUPROPION HCL (BUPROPION HCL), 100MG, TABLET, ORAL, APOTEX ORION, 100 ea. BOTTLE Active [id number] 2023 90 Pharmac y Data Transac tion Service Facilit y BUPROPION HCL (BUPROPION HCL), 100MG, TABLET, ORAL, APOTEX ORION, 100 ea. BOTTLE Active [id number] 2023 90 Pharmac y Data Transac tion Service Facilit y CETIRIZINE HCL (CETIRIZINE HCL), 5MG, TABLET, ORAL, MYLAN, 100 ea. BOTTLE Active [id number] 2023 15 Pharmac y Data Transac tion Service Facilit y CETIRIZINE HCL (CETIRIZINE HCL), 5MG, TABLET, ORAL, MYLAN, 100 ea. BOTTLE Active [id number] 2023 15 Pharmac y Data Transac tion Service Facilit y CETIRIZINE HCL (CETIRIZINE HCL), 5MG, TABLET, ORAL, MYLAN, 100 ea. BOTTLE Active [id number] 2023 15 Pharmac y Data Transac tion Service Facilit y FLUCONAZOLE (fluconazol e), 100 MG, TABLET, ORAL, [facility], 100 ea. BOTTLE Active [id number] 2023 14 Pharmac y Data Transac tion Service Facilit y FUROSEMIDE (FUROSEMIDE ), 20MG, TABLET, ORAL, [facility] 1000 ea. BOTTLE Active [id number] 2023 8 Pharmac y Data Transac tion Service Facilit y FUROSEMIDE (FUROSEMIDE ), 20MG, TABLET, ORAL, JORGE L [facility] 1000 ea. BOTTLE Active [id number] 2023 8 Pharmac y Data Transac tion Service Facilit y GABAPENTIN (gabapentin ), 600 MG, TABLET, ORAL, [facility], 500 ea. BOTTLE Active [id number] 2023 120 Pharmac y Data Transac tion Service Facilit y GABAPENTIN (GABAPENTIN ), 600 MG, TABLET, ORAL, [facility], 500 ea. BOTTLE Active [id number] 4 2023 120 Pharmac y Data Transac tion Service Facilit y GABAPENTIN (gabapentin ), 600 MG, TABLET, ORAL, [facility], 500 ea. BOTTLE Active [id number] 2023 63 Pharmac y Data Transac tion Service Facilit y GABAPENTIN (gabapentin ), 600 MG, TABLET, ORAL, [facility], 500 ea. BOTTLE Active [id number] 2023 135 Pharmac y Data Transac tion Service Facilit y HYDROCHLORO THIAZIDE (hydrochlor othiazide), 12.5 MG, CAPSULE, ORAL, [facility], 500 ea. BOTTLE Active [id number] 2023 14 Pharmac y Data Transac tion Service Facilit y HYDROCHLORO THIAZIDE (HYDROCHLOR OTHIAZIDE), 12.5 MG, TABLET, ORAL, [facility], 1000 ea. BOTTLE Active [id number] 2023 30 Pharmac y Data Transac tion Service Facilit y HYDROCHLORO THIAZIDE (HYDROCHLOR OTHIAZIDE), 12.5 MG, TABLET, ORAL, [facility], 1000 ea. BOTTLE Active [id number] 2023 30 Pharmac y Data Transac tion Service Facilit y HYDROCHLORO THIAZIDE (HYDROCHLOR OTHIAZIDE), 12.5 MG, TABLET, ORAL, [facility], 1000 ea. BOTTLE Active [id number] 2023 30 Pharmac y Data Transac tion Service Facilit y LEVOTHYROXI NE SODIUM (levothyrox ine sodium), 137 MCG, TABLET, ORAL, [facility], 1000 ea. BOTTLE Active [id number] 2023 30 Pharmac y Data Transac tion Service Facilit y LEVOTHYROXI NE SODIUM (levothyrox ine sodium), 137 MCG, TABLET, ORAL, [facility], 1000 ea. BOTTLE Active [id number] 2023 30 Pharmac y Data Transac tion Service Facilit y LEVOTHYROXI NE SODIUM (levothyrox ine sodium), 137 MCG, TABLET, ORAL, [facility], 1000 ea. BOTTLE Active [id number] 2023 30 Pharmac y Data Transac tion Service Facilit y LIDOCAINE-H YDROCORTISO NE (HYDROCORTI SONE AC/LIDOCAIN E), 0.5 %-3 %, CREAM (G), TOPICAL, [facility], 28.35 g TUBE Cancele d [id number] : 2023 0 Pharmac y Data Transac tion Service Facilit y LOSARTAN POTASSIUM (LOSARTAN POTASSIUM), 100 MG, TABLET, ORAL, [facility], 1000 ea. BOTTLE Active [id number] 2023 14 Pharmac y Data Transac tion Service Facilit y LOSARTAN POTASSIUM (LOSARTAN POTASSIUM), 100 MG, TABLET, ORAL, [facility], 1000 ea. BOTTLE Active [id number] 2023 30 Pharmac y Data Transac tion Service Facilit y LOSARTAN POTASSIUM (LOSARTAN POTASSIUM), 100 MG, TABLET, ORAL, [facility], 1000 ea. BOTTLE Active [id number] 2023 30 Pharmac y Data Transac tion Service Facilit y LOSARTAN POTASSIUM (LOSARTAN POTASSIUM), 100 MG, TABLET, ORAL, [facility], 1000 ea. BOTTLE Active [id number] 2023 30 Pharmac y Data Transac tion Service Facilit y LOSARTAN POTASSIUM (LOSARTAN POTASSIUM), 100 MG, TABLET, ORAL, [facility], 1000 ea. BOTTLE Active [id number] 2023 30 Pharmac y Data Transac tion Service Facilit y LOSARTAN POTASSIUM (LOSARTAN POTASSIUM), 50 MG, TABLET, ORAL, [facility], 1000 ea. BOTTLE Active [id number] 2023 30 Pharmac y Data Transac tion Service Facilit y MUPIROCIN (MUPIROCIN) , 2%, OINT.(GM), TOPICAL, [employer] 22 g TUBE Active [id number] 2023 22 Pharmac y Data Transac tion Service Facilit y OMEPRAZOLE (omeprazole ), 40 MG, CAPSULE DR, ORAL, [employer] [facility], 1000 ea. BOTTLE Active [id number] 2023 14 Pharmac y Data Transac tion Service Facilit y OMEPRAZOLE (omeprazole ), 40 MG, CAPSULE DR, ORAL, [facility], 1000 ea. BOTTLE Active [id number] 2023 30 Pharmac y Data Transac tion Service Facilit y OMEPRAZOLE (omeprazole ), 40 MG, CAPSULE DR, ORAL, [employer] [facility]ARMA, 1000 ea. BOTTLE Active [id number] 2023 30 Pharmac y Data Transac tion Service Facilit y OMEPRAZOLE (omeprazole ), 40 MG, CAPSULE DR, ORAL, [employer] PHARMA, 1000 ea. BOTTLE Active [id number] 2023 30 Pharmac y Data Transac tion Service Facilit y OXYBUTYNIN CHLORIDE ER (OXYBUTYNIN CHLORIDE), 5 MG, TAB ER 24, ORAL, [employer], 500 ea. BOTTLE Active [id number] 2023 14 Pharmac y Data Transac tion Service Facilit y TRAMADOL HCL (tramadol HCl), 50 MG, TABLET, ORAL, [facility], 500 ea. BOTTLE Active [id number] 2023 30 Pharmac y Data Transac tion Service Facilit y TRAMADOL HCL (tramadol HCl), 50 MG, TABLET, ORAL, [facility], 500 ea. BOTTLE Active [id number] 2023 30 Pharmac y Data Transac tion Service Facilit y VENLAFAXINE HCL (venlafaxin e HCl), 75 MG, TABLET, ORAL, [facility], 100 ea. BOTTLE Active [id number] 2023 90 Pharmac y Data Transac tion Service Facilit y VENLAFAXINE HCL (venlafaxin e HCl), 75 MG, TABLET, ORAL, [facility], 100 ea. BOTTLE Active [id number] 2023 90 Pharmac y Data Transac tion Service Facilit y VENLAFAXINE HCL (venlafaxin e HCl), 75 MG, TABLET, ORAL, [facility], 100 ea. BOTTLE Active [id number] 4 2023 90 Pharmac y Data Transac tion Service Facilit y VENLAFAXINE HCL (venlafaxin e HCl), 75 MG, TABLET, ORAL, [facility], 100 ea. BOTTLE Active [id number] 2023 90 Pharmac y Data Transac tion Service Facilit y VENLAFAXINE HCL (VENLAFAXIN E HCL), 75 MG, TABLET, ORAL, [facility], 100 ea. BOTTLE Active [id number] 2023 42 Pharmac y Data Transac tion Service Facilit y Social History Combined list of available smoking, tobacco, and other social history from Department of Defense and Veterans Affairs facilities. Social History Type Response Date Comment [facility] e This section is an empty social history section. [employer]
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
--- OUTSIDE RECORDS SUMMARY | 2023-08-30 10:52 | XMS_ITS | Clinical Summary ---
Author Name Unknown Organization [place] Address [facility], [facility] [place] [address] Care Team Providers Care Preschool Teacher Name Role Phone Juan Rojas MD Primary Care Provider [phone] Allergies Active Allergy Reactions Criticality Noted Date [...] Comments Blood Pressure 155/66 03/27/2023 8:11 AM MUSCULOSKELETAL PHYSIOTHERAPIST Pulse 90 03/27/2023 8:11 AM MUSCULOSKELETAL PHYSIOTHERAPIST Temperature 36.5 ??C (97.7 ??F) 03/27/2023 8:11 AM CS T Respiratory Rate 18 03/27/2023 8:11 AM MUSCULOSKELETAL PHYSIOTHERAPIST Oxygen Saturation 93% 03/27/2023 8:11 AM MUSCULOSKELETAL PHYSIOTHERAPIST Inhaled Oxygen Concentration - - Weight 98.3 kg (216 lb 11.4 oz) 03/22/2023 3:57 PM MUSCULOSKELETAL PHYSIOTHERAPIST Height 160 cm (5' 3) 03/22/2023 5:00 PM MUSCULOSKELETAL PHYSIOTHERAPIST Body Mass Index 38.39 03/22/2023 3:57 PM MUSCULOSKELETAL PHYSIOTHERAPIST Plan of Treatment Health Maintenance Due Date [...] VISIT 02/22/2022 02/22/2021 COVID-19 Vaccine (5 - 2022- season) 2022 03/09/2022, 02/22/2021, 07/29/2020, Additional history [...] BASIC METABOLIC PANEL Routine 03/27/2023 6:31 AM MUSCULOSKELETAL PHYSIOTHERAPIST from Last 3 Months or Most Recently Relevant to Health Maintenance Results * (ABNORMAL) Basic metabolic panel (03/27/2023 6:31 AM MUSCULOSKELETAL PHYSIOTHERAPIST) Sodium 134(L) 135 - 145 mmol/L 03/27/2023 6:59 AM MUSCULOSKELETAL PHYSIOTHERAPIST [facility] Comment:Reference intervals for this test were updated on 01/24/2023 to more accurately reflect our healthy population. There may be differences in the flagging of prior results with similar values performed with this method. Interpretation of those prior results can be made in the context of the updated reference intervals. Potassium 4.1 3.4 - 5.3 mmol/L 03/27/2023 6:59 AM MUSCULOSKELETAL PHYSIOTHERAPIST [facility] Chloride 101 98 - 107 mmol/L 03/27/2023 6:59 AM MUSCULOSKELETAL PHYSIOTHERAPIST [facility] Carbon Dioxide (CO2) 24 22 - 29 mmol/L 03/27/2023 6:59 AM MUSCULOSKELETAL PHYSIOTHERAPIST LAB[facility]ATORY Anion Gap 9 7 - 15 mmol/L 03/27/2023 6:59 AM MUSCULOSKELETAL PHYSIOTHERAPIST LABORATORY Urea Nitrogen 15.5 8.0 - 23.0 mg/dL 03/27/2023 6:59 AM MUSCULOSKELETAL PHYSIOTHERAPIST LAB[facility]ATORY Creatinine 0.84 0.51 - 0.95 mg/dL 03/27/2023 6:59 AM MUSCULOSKELETAL PHYSIOTHERAPIST LABORATORY GFR Estimate 72 >60 mL/min/1. 73m2 03/27/2023 6:59 AM MUSCULOSKELETAL PHYSIOTHERAPIST LABORATORY Calcium 8.5(L) 8.8 - 10.2 mg/dL 03/27/2023 6:59 AM MUSCULOSKELETAL PHYSIOTHERAPIST LAB[facility]ATORY Glucose 102(H) 70 - 99 mg/dL 03/27/2023 6:59 AM MUSCULOSKELETAL PHYSIOTHERAPIST [facility]AT[facility] Blood STRUCTURE OF RIGHT UPPER LIMB / Unknown Venipuncture / Unknown 03/27/2023 6:31 AM MUSCULOSKELETAL PHYSIOTHERAPIST 03/27/2023 6:39 AM MUSCULOSKELETAL PHYSIOTHERAPIST Bernice Stearns MD LAB - BLOOD [facility] [address] Lab (1st floor, no room number) [place] [address], [facility] [phone] from Last 3 Months or Most Recently Relevant to Health Maintenance Advance Directives For more information, please contact: [phone] * Full Code (Latest Code Status on File) Date Activated Date Inactivated Comments 03/22/2023 6:21 PM 03/27/2023 3:49 PM All basic and advanced life-sustaining interventions are performed as appropriate Question Answer Comments Code status determined by: Discussion with patie nt/ legal decision maker Care Teams Preschool Teacher Relationship Specialty Start Date End Date Juan Rojas MD PCP - General Family Medicine 03/23/23
== END 2023-08-30 10:50 | disposition home or self-care (01) ==
PROVIDERS: PCP Physician Assistant; Visit Provider Surgery
DX: T81.31XA Disruption of external operation (surgical) wound, not elsewhere classified, initial encounter (principal); S31.000A Unspecified open wound of lower back and pelvis without penetration into retroperitoneum, initial encounter
CPT/HCPCS: 97597

== ENCOUNTER 2023-09-06 10:48 | Outpatient (CLI) | payer MEDICARE, OTHER, SELFPAY ==
--- OUTSIDE RECORDS SUMMARY | 2023-09-06 10:49 | XMS_ITS | Clinical Summary ---
Author Name Unknown Organization [place] Address [facility] [place] [address] Care Team Providers Care Special Education Case Manager Name Role Phone Juan Rojas MD Primary Care Provider [phone] Allergies Active Allergy Reactions Criticality Noted Date [...] Comments Blood Pressure 155/66 03/27/2023 8:11 AM CAUSTIC PREPARER Pulse 90 03/27/2023 8:11 AM CAUSTIC PREPARER Temperature 36.5 ??C (97.7 ??F) 03/27/2023 8:11 AM CS T Respiratory Rate 18 03/27/2023 8:11 AM CAUSTIC PREPARER Oxygen Saturation 93% 03/27/2023 8:11 AM CAUSTIC PREPARER Inhaled Oxygen Concentration - - Weight 98.3 kg (216 lb 11.4 oz) 03/22/2023 3:57 PM CAUSTIC PREPARER Height 160 cm (5' 3) 03/22/2023 5:00 PM CAUSTIC PREPARER Body Mass Index 38.39 03/22/2023 3:57 PM CAUSTIC PREPARER Plan of Treatment Health Maintenance Due Date [...] BASIC METABOLIC PANEL Routine 03/27/2023 6:31 AM CAUSTIC PREPARER from Last 3 Months or Most Recently Relevant to Health Maintenance Results * (ABNORMAL) Basic metabolic panel (03/27/2023 6:31 AM CAUSTIC PREPARER) Sodium 134(L) 135 - 145 mmol/L 03/27/2023 6:59 AM CAUSTIC PREPARER [facility] Comment:Reference intervals for this test were updated on 01/24/2023 to more accurately reflect our healthy population. There may be differences in the flagging of prior results with similar values performed with this method. Interpretation of those prior results can be made in the context of the updated reference intervals. Potassium 4.1 3.4 - 5.3 mmol/L 03/27/2023 6:59 AM CAUSTIC PREPARER [facility] Chloride 101 98 - 107 mmol/L 03/27/2023 6:59 AM CAUSTIC PREPARER [facility] Carbon Dioxide (CO2) 24 22 - 29 mmol/L 03/27/2023 6:59 AM CAUSTIC PREPARER [facility] Anion Gap 9 7 - 15 mmol/L 03/27/2023 6:59 AM CAUSTIC PREPARER [facility] Urea Nitrogen 15.5 8.0 - 23.0 mg/dL 03/27/2023 6:59 AM CAUSTIC PREPARER [facility] Creatinine 0.84 0.51 - 0.95 mg/dL 03/27/2023 6:59 AM CAUSTIC PREPARER [facility]AT[facility] GFR Estimate 72 >60 mL/min/1. 73m2 03/27/2023 6:59 AM CAUSTIC PREPARER [facility] Calcium 8.5(L) 8.8 - 10.2 mg/dL 03/27/2023 6:59 AM CAUSTIC PREPARER [facility] Glucose 102(H) 70 - 99 mg/dL 03/27/2023 6:59 AM CAUSTIC PREPARER [facility] Blood STRUCTURE OF RIGHT UPPER LIMB / Unknown Venipuncture / Unknown 03/27/2023 6:31 AM CAUSTIC PREPARER 03/27/2023 6:39 AM CAUSTIC PREPARER Bernice Stearns MD LAB - BLOOD [facility] [address] Lab (1st floor, no room number) [place] [address], [facility] [phone] from Last 3 Months or Most Recently Relevant to Health Maintenance Advance Directives For more information, please contact: [phone] * Full Code (Latest Code Status on File) Date Activated Date Inactivated Comments 03/22/2023 6:21 PM 03/27/2023 3:49 PM All basic and advanced life-sustaining interventions are performed as appropriate Question Answer Comments Code status determined by: Discussion with patie nt/ legal decision maker Care Teams Special Education Case Manager Relationship Specialty Start Date End Date Juan Rojas MD PCP - General Family Medicine 03/23/23
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
--- OUTSIDE RECORDS SUMMARY | 2023-09-06 10:50 | XMS_ITS | Continuity of Care Document ---
Author Name [facility] Organization [facility] Care Team Providers Care Liquid Yeast Supervisor Name Role Phone [facility] Unavailable Unavailable Medications Combined list of outpatient [...] ORAL, APOTEX ORION, 1000 ea. BOTTLE Active [id number] 4 2023 14 Pharmac y Data Transac tion Service Facilit y ATORVASTATI N CALCIUM (atorvastat in calcium), 20 MG, TABLET, ORAL, [facility], 500 ea. BOTTLE Active [id number] 4 2023 30 Pharmac y Data Transac tion Service Facilit y atorvastati n calcium ([employer]) 1000 TABLET in 1 BOTTLE Active [id number] 4 2023 30 Pharmac y Data Transac tion Service Facilit y atorvastati n calcium ([employer]) 1000 TABLET in 1 BOTTLE Active [id number] 4 2023 30 Pharmac y Data Transac tion Service Facilit y BUPROPION HCL (bupropion HCl), 100 MG, TABLET, ORAL, [facility], 100 ea. BOTTLE Active [id number] 4 2023 28 Pharmac y Data Transac tion Service Facilit y BUPROPION HCL (BUPROPION HCL), 100MG, TABLET, ORAL, APOTEX ORION, 100 ea. BOTTLE Active [id number] 2023 90 Pharmac y Data Transac tion Service Facilit y BUPROPION HCL (BUPROPION HCL), 100MG, TABLET, ORAL, APOTEX ORION, 100 ea. BOTTLE Active [id number] 4 2023 90 Pharmac y Data Transac tion Service Facilit y BUPROPION HCL (BUPROPION HCL), 100MG, TABLET, ORAL, APOTEX ORION, 100 ea. BOTTLE Active [id number] 2023 90 Pharmac y Data Transac tion Service Facilit y CETIRIZINE HCL (CETIRIZINE HCL), 5MG, TABLET, ORAL, MYLAN, 100 ea. BOTTLE Active [id number] 4 2023 15 Pharmac y Data Transac tion Service Facilit y CETIRIZINE HCL (CETIRIZINE HCL), 5MG, TABLET, ORAL, MYLAN, 100 ea. BOTTLE Active [id number] 4 2023 15 Pharmac y Data Transac tion Service Facilit y CETIRIZINE HCL (CETIRIZINE HCL), 5MG, TABLET, ORAL, MYLAN, 100 ea. BOTTLE Active [id number] 2023 15 Pharmac y Data Transac tion Service Facilit y FLUCONAZOLE (fluconazol e), 100 MG, TABLET, ORAL, [facility], 100 ea. BOTTLE Active [id number] 2023 14 Pharmac y Data Transac tion Service Facilit y FUROSEMIDE (FUROSEMIDE ), 20MG, TABLET, ORAL, [facility] 1000 ea. BOTTLE Active [id number] 4 2023 8 Pharmac y Data Transac tion Service Facilit y FUROSEMIDE (FUROSEMIDE ), 20MG, TABLET, ORAL, [facility] 1000 ea. BOTTLE Active [id number] 4 2023 8 Pharmac y Data Transac tion Service Facilit y GABAPENTIN (gabapentin ), 600 MG, TABLET, ORAL, [facility], 500 ea. BOTTLE Active [id number] 4 2023 120 Pharmac y Data Transac tion Service Facilit y GABAPENTIN (GABAPENTIN ), 600 MG, TABLET, ORAL, [facility], 500 ea. BOTTLE Active [id number] 4 2023 120 Pharmac y Data Transac tion Service Facilit y GABAPENTIN (gabapentin ), 600 MG, TABLET, ORAL, [facility], 500 ea. BOTTLE Active [id number] 2023 63 Pharmac y Data Transac tion Service Facilit y GABAPENTIN (gabapentin ), 600 MG, TABLET, ORAL, [facility], 500 ea. BOTTLE Active [id number] 4 2023 135 Pharmac y Data Transac tion Service Facilit y HYDROCHLORO THIAZIDE (hydrochlor othiazide), 12.5 MG, CAPSULE, ORAL, [facility], 500 ea. BOTTLE Active [id number] 2023 14 Pharmac y Data Transac tion Service Facilit y HYDROCHLORO THIAZIDE (HYDROCHLOR OTHIAZIDE), 12.5 MG, TABLET, ORAL, [facility], 1000 ea. BOTTLE Active [id number] 2023 30 Pharmac y Data Transac tion Service Facilit y HYDROCHLORO THIAZIDE (HYDROCHLOR OTHIAZIDE), 12.5 MG, TABLET, ORAL, [facility], 1000 ea. BOTTLE Active [id number] 4 2023 30 Pharmac y Data Transac tion Service Facilit y HYDROCHLORO THIAZIDE (HYDROCHLOR OTHIAZIDE), 12.5 MG, TABLET, ORAL, [facility], 1000 ea. BOTTLE Active [id number] 2023 30 Pharmac y Data Transac tion Service Facilit y LEVOTHYROXI NE SODIUM (levothyrox ine sodium), 137 MCG, TABLET, ORAL, [facility], 1000 ea. BOTTLE Active [id number] 2023 30 Pharmac y Data Transac tion Service Facilit y LEVOTHYROXI NE SODIUM (levothyrox ine sodium), 137 MCG, TABLET, ORAL, [facility], 1000 ea. BOTTLE Active [id number] 2023 30 Pharmac y Data Transac tion Service Facilit y LEVOTHYROXI NE SODIUM (levothyrox ine sodium), 137 MCG, TABLET, ORAL, [facility], 1000 ea. BOTTLE Active [id number] 4 2023 30 Pharmac y Data Transac tion Service Facilit y LIDOCAINE-H YDROCORTISO NE (HYDROCORTI SONE AC/LIDOCAIN E), 0.5 %-3 %, CREAM (G), TOPICAL, [facility], 28.35 g TUBE Cancele d [id number] : 2023 0 Pharmac y Data Transac tion Service Facilit y LOSARTAN POTASSIUM (LOSARTAN POTASSIUM), 100 MG, TABLET, ORAL, [facility], 1000 ea. BOTTLE Active [id number] 4 2023 14 Pharmac y Data Transac tion Service Facilit y LOSARTAN POTASSIUM (LOSARTAN POTASSIUM), 100 MG, TABLET, ORAL, [facility], 1000 ea. BOTTLE Active [id number] 2023 30 Pharmac y Data Transac tion Service Facilit y LOSARTAN POTASSIUM (LOSARTAN POTASSIUM), 100 MG, TABLET, ORAL, [facility], 1000 ea. BOTTLE Active [id number] 2023 30 Pharmac y Data Transac tion Service Facilit y LOSARTAN POTASSIUM (LOSARTAN POTASSIUM), 100 MG, TABLET, ORAL, [facility], 1000 ea. BOTTLE Active [id number] 2023 30 Pharmac y Data Transac tion Service Facilit y LOSARTAN POTASSIUM (LOSARTAN POTASSIUM), 100 MG, TABLET, ORAL, [facility], 1000 ea. BOTTLE Active [id number] 4 2023 30 Pharmac y Data Transac tion Service Facilit y LOSARTAN POTASSIUM (LOSARTAN POTASSIUM), 50 MG, TABLET, ORAL, [facility], 1000 ea. BOTTLE Active [id number] 2023 30 Pharmac y Data Transac tion Service Facilit y MUPIROCIN (MUPIROCIN) , 2%, OINT.(GM), TOPICAL, [employer] 22 g TUBE Active [id number] 4 2023 22 Pharmac y Data Transac tion Service Facilit y OMEPRAZOLE (omeprazole ), 40 MG, CAPSULE DR, ORAL, [employer] [facility], 1000 ea. BOTTLE Active [id number] 2023 14 Pharmac y Data Transac tion Service Facilit y OMEPRAZOLE (omeprazole ), 40 MG, CAPSULE DR, ORAL, [facility], 1000 ea. BOTTLE Active [id number] 2023 30 Pharmac y Data Transac tion Service Facilit y OMEPRAZOLE (omeprazole ), 40 MG, CAPSULE DR, ORAL, [employer] [facility], 1000 ea. BOTTLE Active [id number] 2023 30 Pharmac y Data Transac tion Service Facilit y OMEPRAZOLE (omeprazole ), 40 MG, CAPSULE DR, ORAL, [employer] [facility], 1000 ea. BOTTLE Active [id number] 4 2023 30 Pharmac y Data Transac tion Service Facilit y OXYBUTYNIN CHLORIDE ER (OXYBUTYNIN CHLORIDE), 5 MG, TAB ER 24, ORAL, [employer], 500 ea. BOTTLE Active [id number] 4 2023 14 Pharmac y Data Transac tion Service Facilit y TRAMADOL HCL (tramadol HCl), 50 MG, TABLET, ORAL, [facility]AL [facility]ARMACE, 500 ea. BOTTLE Active [id number] 4 2023 30 Pharmac y Data Transac tion Service Facilit y TRAMADOL HCL (tramadol HCl), 50 MG, TABLET, ORAL, [facility], 500 ea. BOTTLE Active [id number] 4 2023 30 Pharmac y Data Transac tion Service Facilit y VENLAFAXINE HCL (venlafaxin e HCl), 75 MG, TABLET, ORAL, [facility], 100 ea. BOTTLE Active [id number] 4 2023 90 Pharmac y Data Transac tion Service Facilit y VENLAFAXINE HCL (venlafaxin e HCl), 75 MG, TABLET, ORAL, [facility], 100 ea. BOTTLE Active [id number] 3 2023 90 Pharmac y Data Transac tion Service Facilit y VENLAFAXINE HCL (venlafaxin e HCl), 75 MG, TABLET, ORAL, [facility], 100 ea. BOTTLE Active [id number] 4 2023 90 Pharmac y Data Transac tion Service Facilit y VENLAFAXINE HCL (venlafaxin e HCl), 75 MG, TABLET, ORAL, [facility], 100 ea. BOTTLE Active [id number] 4 2023 90 Pharmac y Data Transac tion Service Facilit y VENLAFAXINE HCL (VENLAFAXIN E HCL), 75 MG, TABLET, ORAL, [facility], 100 ea. 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 Social History Type Response Date Comment [facility] e This section is an empty social history section. DoD
--- OUTSIDE RECORDS SUMMARY | 2023-09-06 10:50 | XMS_ITS | Referral Summary ---
Author Name Unknown Organization [place] Address [facility] [place] [address] Care Team Providers Care Tourist Information Assistant Name Role Phone Juan Rojas MD Primary Care Provider [phone] Allergies Active Allergy Reactions Criticality Noted Date [...] Comments Blood Pressure 155/66 03/27/2023 8:11 AM TEST TECHNICIAN Pulse 90 03/27/2023 8:11 AM TEST TECHNICIAN Temperature 36.5 ??C (97.7 ??F) 03/27/2023 8:11 AM CS T Respiratory Rate 18 03/27/2023 8:11 AM TEST TECHNICIAN Oxygen Saturation 93% 03/27/2023 8:11 AM TEST TECHNICIAN Inhaled Oxygen Concentration - - Weight 98.3 kg (216 lb 11.4 oz) 03/22/2023 3:57 PM TEST TECHNICIAN Height 160 cm (5' 3) 03/22/2023 5:00 PM TEST TECHNICIAN Body Mass Index 38.39 03/22/2023 3:57 PM TEST TECHNICIAN Plan of Treatment Not on file Procedures Procedure Name Priority Date/Time Associated Diagnosis Comments BASIC METABOLIC PANEL Routine 03/27/2023 6:31 AM TEST TECHNICIAN from Last 3 Months or Most Recently Relevant to Health Maintenance Results * (ABNORMAL) Basic metabolic panel (03/27/2023 6:31 AM TEST TECHNICIAN) [facility] Sodium 134(L) 135 - 145 mmol/L 03/27/2023 6:59 AM TEST TECHNICIAN [facility] Comment:Reference intervals for this test were updated on 01/24/2023 to more accurately reflect our healthy population. There may be differences in the flagging of prior results with similar values performed with this method. Interpretation of those prior results can be made in the context of the updated reference intervals. Potassium 4.1 3.4 - 5.3 mmol/L 03/27/2023 6:59 AM TEST TECHNICIAN LABORATORY Chloride 101 98 - 107 mmol/L 03/27/2023 6:59 AM [facility] Carbon Dioxide (CO2) 24 22 - 29 mmol/L 03/27/2023 6:59 AM TEST TECHNICIAN LABORATORY Anion Gap 9 7 - 15 mmol/L 03/27/2023 6:59 AM TEST TECHNICIAN LABORATORY Urea Nitrogen 15.5 8.0 - 23.0 mg/dL 03/27/2023 6:59 AM TEST TECHNICIAN LABORATORY Creatinine 0.84 0.51 - 0.95 mg/dL 03/27/2023 6:59 AM [facility] GFR Estimate 72 >60 mL/min/1. 73m2 03/27/2023 6:59 AM [facility] Calcium 8.5(L) 8.8 - 10.2 mg/dL 03/27/2023 6:59 AM [facility] Glucose 102(H) 70 - 99 mg/dL 03/27/2023 6:59 AM TEST TECHNICIAN LABORATORY Blood STRUCTURE OF RIGHT UPPER LIMB / Unknown Venipuncture / Unknown 03/27/2023 6:31 AM TEST TECHNICIAN 03/27/2023 6:39 AM TEST TECHNICIAN Bernice Stearns MD LAB - BLOOD ORDER IMLE [facility] Acute Care Lab [address] Lab (1st floor, no room number) [place] [address], [facility] [phone] from Last 3 Months or Most Recently Relevant to Health Maintenance Advance Directives For more information, please contact: [phone] * Full Code (Latest Code Status on File) Date Activated Date Inactivated Comments 03/22/2023 6:21 PM 03/27/2023 3:49 PM All basic and advanced life-sustaining interventions are performed as appropriate Question Answer Comments Code status determined by: Discussion with patie nt/ legal decision maker Care Teams Tourist Information Assistant Relationship Specialty Start Date End Date Juan Rojas MD PCP - General Family Medicine 03/23/23
== END 2023-09-06 10:49 | disposition home or self-care (01) ==
LOC: WOUND 10:48
PROVIDERS: PCP Physician Assistant; Visit Provider Surgery
DX: T81.31XA Disruption of external operation (surgical) wound, not elsewhere classified, initial encounter (principal)
CPT/HCPCS: G0463

== ENCOUNTER 2024-02-06 10:07 | Outpatient (CLI) | payer MEDICARE, OTHER, SELFPAY ==
--- OUTSIDE RECORDS SUMMARY | 2024-02-06 11:23 | XMS_ITS | Referral Summary ---
Author Organization [place] Address [facility] [place] [address] Care Team Providers Care Ware Cleaner Name Role Phone Juan Rojas MD Primary Care Provider [phone] Allergies Active Allergy Reactions Criticality Noted Date [...] Comments Blood Pressure 155/66 03/27/2023 8:11 AM BEADWORKER Pulse 90 03/27/2023 8:11 AM BEADWORKER Temperature 36.5 ??C (97.7 ??F) 03/27/2023 8:11 AM CS T Respiratory Rate 18 03/27/2023 8:11 AM BEADWORKER Oxygen Saturation 93% 03/27/2023 8:11 AM BEADWORKER Inhaled Oxygen Concentration - - Weight 98.3 kg (216 lb 11.4 oz) 03/22/2023 3:57 PM BEADWORKER Height 160 cm (5' 3) 03/22/2023 5:00 PM BEADWORKER Body Mass Index 38.39 03/22/2023 3:57 PM BEADWORKER Plan of Treatment Not on file Procedures Procedure Name Priority Date/Time Associated Diagnosis Comments BASIC METABOLIC PANEL Routine 03/27/2023 6:31 AM BEADWORKER from Last 3 Months or Most Recently Relevant to Health Maintenance Results * (ABNORMAL) Basic metabolic panel (03/27/2023 6:31 AM BEADWORKER) [facility] Sodium 134(L) 135 - 145 mmol/L 03/27/2023 6:59 AM BEADWORKER [facility] Comment:Reference intervals for this test were updated on 01/24/2023 to more accurately reflect our healthy population. There may be differences in the flagging of prior results with similar values performed with this method. Interpretation of those prior results can be made in the context of the updated reference intervals. Potassium 4.1 3.4 - 5.3 mmol/L 03/27/2023 6:59 AM [facility] Chloride 101 98 - 107 mmol/L 03/27/2023 6:59 AM [facility] Carbon Dioxide (CO2) 24 22 - 29 mmol/L 03/27/2023 6:59 AM [facility] Anion Gap 9 7 - 15 mmol/L 03/27/2023 6:59 AM [facility] Urea Nitrogen 15.5 8.0 - 23.0 mg/dL 03/27/2023 6:59 AM [facility] Creatinine 0.84 0.51 - 0.95 mg/dL 03/27/2023 6:59 AM [facility] GFR Estimate 72 >60 mL/min/1. 73m2 03/27/2023 6:59 AM [facility] Calcium 8.5(L) 8.8 - 10.2 mg/dL 03/27/2023 6:59 AM [facility] Glucose 102(H) 70 - 99 mg/dL 03/27/2023 6:59 AM [facility] Blood STRUCTURE OF RIGHT UPPER LIMB / Unknown Venipuncture / Unknown 03/27/2023 6:31 AM BEADWORKER 03/27/2023 6:39 AM BEADWORKER Bernice Stearns MD LAB - BLOOD ORDER [facility]LE [facility] Acute Care Lab [address] Lab (1st floor, no room number) [place] [address], [facility] [phone] from Last 3 Months or Most Recently Relevant to Health Maintenance Advance Directives For more information, please contact: [phone] * Full Code (Latest Code Status on File) Date Activated Date Inactivated Comments 03/22/2023 6:21 PM 03/27/2023 3:49 PM All basic and advanced life-sustaining interventions are performed as appropriate Question Answer Comments Code status determined by: Discussion with ty nt/ legal decision maker Care Teams Ware Cleaner Relationship Specialty Start Date End Date Juan Rojas MD PCP - General Family Medicine 03/23/23
--- OUTSIDE RECORDS SUMMARY | 2024-02-06 11:23 | XMS_ITS | Clinical Summary ---
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 Name Role Phone Prabha Nice Primary Care Provider [phone] Allergies Active Allergy Reactions Criticality Noted Date Comments Droperidol Rash 02/22/2021 Polyglactin 370 Rash 04/29/2011 Vicryl sutures--rash, itching Metoclopramide Rash 02/22/2021 Sulfa (Sulfonamide Antibiotics) Rash 02/22/2021 Sulfamethoxazole-Trimethoprim Rash Medium 2011 Sutures Rash 04/29/2011 Vicryl sutures--rash, itching Medications Medication Sig Dispensed Refills Start Date End Date Status lactase (LACTAID) 3,000 unit tabletIndications: Lactose intolerance Take 1 Tablet (3,000 units) by mouth 4 times daily if needed for Lactose Intolerance. 100 Tablet 2 4 Active Lidocaine-Hydrocor tisone Lamont 3-0.5 % topical creamIndications:P eripheral sensory neuropathy Apply topically to affected area(s) at bedtime if needed (nerupathy in feet). 28.3 g 2 4 Active metoprolol succinate (Toprol XL) 50 mg sustained-release tabletIndications: Nonrheumatic mitral valve stenosis Take 1 Tablet (50 mg) by mouth once daily. 90 Tablet 3 4 Active furosemide (LASIX) 20 mg tabletIndications: Peripheral edema TAKE ONE TABLET BY MOUTH EVERY MONDAY AND MONDAY 30 Tablet 2 4 Active diclofenac topical (VOLTAREN) 1 % gelIndications:Chr onic pain of both knees Apply 4 g topically to affected area(s) four times daily. 100 g 9 4 Active fluticasone (50 mcg per actuation) nasal solution (FLONASE)Indicatio ns:Non-seasonal allergic rhinitis due to pollen Inhale 2 Sprays to both nostrils once daily. 48 g 3 4 Active gabapentin (NEURONTIN) 600 mg tabletIndications: Other chronic pain Take 1.5 Tablets (900 mg) by mouth three times daily. 405 Tablet 2 4 Active buPROPion (WELLBUTRIN) 100 mg tabletIndications: MDD (major depressive disorder), recurrent episode, moderate (HC) Take 1 Tablet (100 mg) by mouth three times daily. Based on updated ISMP guidelines, DO NOT crush or chew. 270 Tablet 2 4 Active cetirizine (ZYRTEC) 10 mg tabletIndications: Seasonal allergic rhinitis due to pollen Take 1 Tablet (10 mg) by mouth once daily. 90 Tablet 3 4 Active atorvastatin (LIPITOR) 20 mg tabletIndications: Mixed hyperlipidemia Take 1 Tablet (20 mg) by mouth at bedtime. 90 Tablet 2 4 Active omeprazole (PRILOSEC) 40 mg Delayed-Release capsuleIndications :Chronic GERD Take 1 Capsule (40 mg) by mouth once daily before a meal. 90 Capsule 2 4 Active oxybutynin XL (DITROPAN XL) 5 mg CR tabletIndications: OAB (overactive bladder) Take 1 Tablet (5 mg) by mouth once daily. 90 Tablet 2 4 Active venlafaxine (EFFEXOR) 75 mg tabletIndications: MDD (major depressive disorder), recurrent episode, moderate (HC) Take 1 Tablet (75 mg) by mouth three times daily. 270 Tablet 1 4 Active losartan (COZAAR) 100 mg tabletIndications: Primary hypertension Take 1 Tablet (100 mg) by mouth once daily. 90 Tablet 1 4 Active nystatin powder (MYCOSTATIN) powder Apply topically to affected area(s) each time if needed. 4 Active albuterol HFA (PRO-AIR; VENTOLIN; PROVENTIL) 90 mcg/actuation inhalerIndications :Non-seasonal allergic rhinitis due to pollen Inhale 1-2 Puffs by mouth every 4 hours if needed for Shortness Of Breath or Wheezing. 4 Active ammonium lactate 12 % lotionIndications: Keratosis pilaris Apply topically to affected area(s) two times daily. 225 g 3 4 Active melatonin 3 mg tabletIndications: Insomnia, idiopathic TAKE 1 & 1/2 TABLETS (4.5 MG) BY MOUTH EVERY NIGHT AT BEDTIME 135 Tablet 3 4 Active docusate (COLACE) 100 mg capsuleIndications :Chronic constipation TAKE 1 CAPSULE BY MOUTH DAILY 90 Capsule 3 4 Active cholecalciferol, Vitamin D3, 2,000 unit tabletIndications: Vitamin D deficiency TAKE 1 TABLET BY MOUTH DAILY 90 Tablet 3 4 Active Multivitamin Cmb No.21-Iron-FA (Certavite-Antioxi dant) 18-400 mg-mcg tabIndications:Ile ostomy status (HC) TAKE 2 TABLETS BY MOUTH DAILY 180 Tablet 3 4 Active acetaminophen (TYLENOL EXTRA STRGTH) 500 mg tabletIndications: Chronic low back pain, unspecified back pain laterality, unspecified whether sciatica present Take 2 Tablets (1,000 mg) by mouth three times daily. 180 Tablet 11 4 Active multivitamin (MVI) tabletIndications: Ileostomy status (HC) Take 1 Tablet by mouth once daily. 90 Tablet 3 4 Active cholecalciferol (Vitamin D-3) 2,000 unit capsuleIndications :Vitamin D deficiency Take 1 Capsule (2,000 units) by mouth once daily. 90 Capsule 3 4 Active hydroCHLOROthiazid e 12.5 mg tabletIndications: Primary hypertension Take 1 Tablet (12.5 mg) by mouth once daily in the morning. 90 Tablet 2 4 Active levothyroxine (SYNTHROID) 175 mcg tabletIndications: Hypothyroidism (acquired) Take 1 Tablet (175 mcg) by mouth before breakfast. 90 Tablet 4 Active hydrOXYzine HCL (ATARAX) 25 mg tabletIndications: Panic attacks TAKE 1 TABLET BY MOUTH EVERY SIX HOURS NEEDED FOR ANXIETY 30 Tablet 2 4 Active cyanocobalamin (Vitamin B-12) 1,000 mcg tabletIndications: B12 deficiency Take 1 Tablet (1,000 mcg) by mouth once daily. 90 Tablet 2 4 01/22/20 24 Discontinued(*Me d complete/Regimen complete/Level of care change) hydrOXYzine HCL (ATARAX) 25 mg tabletIndications: Panic attacks Take 1 Tablet (25 mg) by mouth every 6 hours if needed for Anxiety. 30 Tablet 1 4 01/19/20 24 Discontinued Active Problems Problem Noted Date Diagnosed Date Peripheral sensory neuropathy 11/28/2023 Stage 3a chronic kidney disease 05/14/2023 PMR (polymyalgia rheumatica) 02/22/2021 Mild persistent asthma without complication 01/30 Overview (02/22/2021): PFT 06/2017 The patient underwent spirometry testing. Spirometry testing does show evidence of a mild restrictive process. FEV1 to FVC shows 0.74. FEV1 74% of predicted, FVC is 76% of predicted. Small airway is 69% of predicted. Post-bronchodilator, small global improvement in lung flow. FVC improves by 10% and FEV1 by 11%. Fibromuscular dysplasia of renal artery 02/23/20 Overview (02/22/2021): diagnosed day 2009 HTN (hypertension) 02/22/2021 Hypothyroidism (acquired) 02/22/2021 CORAL (obstructive sleep apnea) 02/22/2021 Ileostomy status 02/22/2021 Gastroesophageal reflux disease without esophagi tis 02/22/2021 Overview (02/22/2021): EGD 11/15: GE junction @ 40 cm. No endoscopic evidence of reflux or Bermeo's. The pouch measured 4-5 cm in size with a widely patent gastro-enteral anastomosis. No anastomotic ulcers. No strictures no narrowing.biopsies were taken.. Intention tremor 02/22/2021 BIENVENIDO (generalized anxiety disorder) 02/22/2021 COPD (chronic obstructive pulmonary disease) Concentric left ventricular hypertrophy 07/05/19 Nonrheumatic mitral valve stenosis 07/04/2020 Pulmonary HTN 05/18/2018 Overview (02/22/2021): Echo 05/2018: RVSP 52, increased intracavitary gradient, mild aortic and mitral stenosis. Dyslipidemia (high LDL; low HDL) 03/01/2018 History of gastric bypass 03/01/2018 Overview (02/22/2021): Iam en y. Prediabetes 03/01/2018 Major depressive disorder, recurrent episode, mo derate 02/06/2018 Bursitis of shoulder 01/14/2014 Resolved Problems Problem Noted Date Diagnosed Date Resolved Date Neuropathy due to chemotherapeutic drug 05/14/2023 11/28/2023 Paroxysmal A-fib 05/14/2023 08/15/2023 Aortic stenosis 06/06/2018 08/15/2023 Encounters Date Type Department Care Team Description 02/01/2024 Nurse Triage [facility] [address] [place] [address] Prabha Nice PA Ear Pain/problem 01/30/2024 Telephone [facility] [address] [facility] [address] [place] [phone] Westley Rosenbaum MD Results (FELIPE) 01/22/2024 Telephone [facility] [address] [place] [address] Prabha Nice PA Refill Request (cyanocobalamin (Vitamin B-12) 1,000 mcg tablet) 01/16/2024 10:30 AM CDT - 01/16/2024 11:59 PM CDT Hospital Encounter [facility] [address] [place] [address] Westley Rosenbaum MD Laber, Michael Nonrheumatic mitral valve stenosis 01/16/2024 Travel 01/15/2024 Telephone [facility] [address] [facility] [address] [place] [phone] Westley Rosenbaum MD Error-please disregard 01/15/2024 Refill [facility] [address] [place] [address] Prabha Nice PA Refill Request (Hydroxyzine Hcl) 01/12/2024 10:20 AM CDT Office Visit [facility] [address] [place] [address] Eddie Fatima MD Musculoskeletal Problem (Consult back pain) 01/12/2024 Travel 01/10/2024 10:00 AM CDT Orders Only [address] [address] Lab, [place] [facility] 01/10/2024 Travel 01/01/[address] [address] Preeti Esposito MD Abnormal Lab Results 12/25/[address] [address] Prabha Nice PA Refill Request 12/22/2023 Orders Only [address] [address] Preeti Esposito MD 1 scan: (1-Ord) [id number] 12/18/[address] [address] Prabha Nice PA Refill Request (Melatonin, Docusate, Cholecalciferol (Vitamin D3), Certavite-antioxidant) 12/14/2023 8:40 AM CDT Office Visit [address] [address] Preeti Esposito MD Pre-Op Exam (CATARACT SURGERY / DOS 12/19 & 01/02 / [facility] / DR. JANINE SOLOMON / FAX [phone]) 12/14/2023 Travel 12/11/[address] [address] Prabha Nice PA Refill Request (Omeprazole, Oxybutynin Chloride ER, Venlafaxine HCL ,Atorvastatin, Losartan) 12/08/2023 Telephone [facility] [address] [facility] [address] [place] [phone] Westley Rosenbaum MD Cardiovascular Diagnostic Testing 12/08/2023 Telephone [facility] [address] [place] [address] Prabha Nice PA Referral (CARDIOLOGY); Error-please disregard 11/29/2023 Telephone [facility] [address] [place] [address] Prabha Nice PA Results 11/28/2023 12:50 PM CDT Office Visit [facility] [address] [place] [address] Prabha Nice PA Foot Problem (neuropathy); Anxiety (since hospital visit few months back-pill camera- needs catarct surgery-housing) 11/28/2023 Travel 11/22/2023 Refill [facility] [address] [place] [address] Prabha Nice PA Refill Request (Bupropion HCL 100mg, Synthroid 137mcg, Cetirizine 5mg) 11/17/2023 Refill [facility] [address] [place] [address] Prabha Nice PA Need Meds 11/16/2023 Refill [facility] [address] [place] [address] Prabha Nice PA Refill Request (Oxybutynin CL ER Tabs 5mg ) 11/14/2023 Telephone [facility] [address] [place] [address] Prabha Nice PA Error-please disregard (A user error has taken place: encounter opened in error, closed for administrative reasons ) 11/14/2023 Refill [facility] [address] [place] [address] Prabha Nice PA Refill Request (Certirizine, Venlafaxine) 11/13/2023 Refill [facility] [address] [place] [address] Prabha Nice PA Refill Request; FLUTICASONE 11/13/[address] [address] Prabha Nice PA Medication Management 11/13/[address] [address] Prabha Nice PA Refill Request (Hydrochlorothiazide 12.5 90 day supply, Bupropion HCL- 90 day, Losartan 100mg, Synthroid 137mcg - 90 day) 11/13/[address] [address] Prabha Nice PA Refill Request (OXYBUTYNIN CHLORIDE ER TABS) 11/09/[address] [address] Prabha Nice PA Refill Request (Metoprolol Succ ER Tabs 50mg) 11/07/[address] [address] Prabha Nice PA Results 11/06/2023 10:15 AM CDT Ancillary Procedure [address] [address] 11/06/[address] [address] Prabha Nice PA Refill Request (Cetirizine, Levothyroxine, lidocain cream, Losartan, toprol, Omeprazole, Venlafaxine, Bupropion, Atorvastatin, b12, voltaren gel, lasix, gabapentin, Hydrochlorothiazide, lactase) 11/06/2023 Travel from Last 3 Months Immunizations Name Administration Dates Next Due COVID-19 VACCINE SPIKEVAX (Yun BOND 50MCG/0.5ML) 12YO+ PFS 05/11/2023 COVID-19 vaccine (eyeOS-Bio NTech 30mcg/0.3mL) PF, MDV 02/22/2021 Influenza A (H1N1), Inactivated 05/19/2009 Influenza Virus, Unspecified 03/01/2011 Influenza, High-dose Inactivated 019,03/01/2018,01/19/2017,2015,03/20/2015,02/17/2015,02/10/2015,0 01/14/2014,01/14/2013 Influenza, High-dose Quadriv alent Inactivated 02/06/2023,02/17/2022,02/15/2021,2019,02/21/2019,03/01/2018,01/19/2017,1 ,03/20/2015,02/17/2015, 015,01/14/2014,01/14/2013 Influenza, IIV3 (Age 6-35 mos) 02/06/2012,2010,01/20/2010 Influenza, IIV3 (Age >=3 years) 01/30/20 09,03/05/2008,02/09/2007,2005,02/08/2005,02/10/2004,02/25/2002 Influenza, split (incl. sherine fied surface antigen) 03/01/2011 Pneumococcal Conj 20-valent (Prevnar 20) 08/15/2023 Pneumococcal [...] Never Smokeless Tobacco: Never Tobacco Cessation:Counseling Given: Yes Alcohol Use Standard Drinks/Week Comments Not Currently 0 (1 standard drink = 0.6 oz pur e alcohol) occ wine PHQ-2 Answer Date Recorded PHQ-2 TOTAL SCORE 3 11/28/2023 Social Connections Answer Date Recorded Frequency of [...] Sign Reading Time Taken Comments Blood Pressure 139/66 01/16/2024 1:10 PM CDT Pulse 65 01/16/2024 1:10 PM CDT Temperature 37.2 ??C (98.9 ??F) 01/12/2024 10:28 AM C DT Respiratory Rate 18 01/16/2024 1:10 PM CDT Oxygen Saturation 93% 01/16/2024 1:10 PM CDT Inhaled Oxygen Concentration - - Weight 91.2 kg (201 lb) 01/12/2024 10:28 AM CDT Height 158 cm (5' 2.21) 08/15/2023 11:16 AM CDT Body Mass Index 36.52 08/15/2023 11:16 AM CDT Plan of Treatment Upcoming Encounters Date Type Department Care Team (Late st Contact Info) Description 02/13/2024 11:10 AM CDT Office Visit [facility] [address] [place] [address] Prabha Nice PA [address] [place] [address] Health Maintenance Due Date Last Done Comments Hepatitis C screening for age 18-79 1963 Zoster (shingles) series for age 50+ (2 of 3) 09/03/2013 07/09/2013 RSV vaccine for adults or (1 - 1-dose 75+ series) 2021 COVID-19 vaccine series ( season) 2023 05/11/2023, 03/09/2022, 02/22/2021, Additional history exists Influenza for age 65+ 12/31/2023 02/06/2023 , 02/17/2022, 02/15/2021, Additional history exists BMI (ht and wt on same day) for age 18+ 08/14/2024 08/15/2023, 05/11/2023, 02/22/2021 Medicare Wellness for age 65+ 08/15/2024 08/15/2023, 02/22/2021 Depression screening for age 12+ 11/28/2024 11/29/2023, 11/28/2023, 08/18/2023, Additional history exists Tetanus booster 12/27/2032 12/27/2022, 03/02, 09/28/2009 DEXA/DXA scan for age 65+ Addressed 2015 (Verified in Care Everywhere or Patient Record) Overridden with the intention of not completing the topic Tdap Completed 12/27/2022, 03/21/2012 Pneumococcal series for age 65+ Completed 08/15/2023, 11/11/2014, 09/28/2009, Additional history exists Procedures Procedure Name Priority Date/Time Associated Diagnosis Comments AMB EPIDURAL STEROID INJECTION Routine 02/06/2024 8:21 AM CDT Chronic lumbar radiculopathy DDD (degenerative disc disease), lumbar Degenerative scoliosis in adult patient ECHO FELIPE WO CONTRAST W COLOR W LTD DOPPLER W BUBBLE Routine 01/16/2024 1:00 PM CDT Nonrheumatic mitral valve stenosis CBC WITH AUTO DIFFERENTIAL Routine 01/10/2024 9:58 AM CDT Anemia of unknown etiology VITAMIN B12 Routine 01/10/2024 9:58 AM CDT Anemia of unknown etiology FERRITIN Routine 01/10/2024 9:58 AM CDT Anemia of unknown etiology CBC WITH AUTO DIFFERENTIAL Routine 01/10/2024 9:58 AM CDT Anemia of unknown etiology TSH Routine 01/10/2024 9:58 AM CDT Hypothyroidism (acquired) TX READING EKG - NO CHARGE, COMP ONLY Routine 12/22/2023 8:52 AM CDT Preoperative examination EKG 12 LEAD Routine 12/22/2023 8:52 AM CDT Preoperative examination TSH Routine 12/14/2023 10:40 AM CDT Hypothyroidism (acquired) CBC WITH AUTO DIFFERENTIAL Routine 12/14/2023 10:40 AM CDT Preoperative examination BASIC METABOLIC PANEL Routine 12/14/2023 10:40 AM CDT Preoperative examination CBC WITH AUTO DIFFERENTIAL Routine 12/14/2023 10:40 AM CDT Preoperative examination TSH Routine 11/28/2023 1:29 PM CDT Hypothyroidism (acquired) MR SPINE LUMBAR WO Routine 11/06/2023 10 :25 AM CDT Chronic lumbar radiculopathy from Last 3 Months Results * ECHO FELIPE WO CONTRAST W COLOR W LTD DOPPLER W BUBBLE (01/16/2024 1:00 PM CDT) PEAK TR VELOCITY 4.3 m/s EJECTION FRACTION 55 - 60% Anatomical Region Laterality Modality Ultrasound 01/16/2024 11:1 6 AM CDT Narrative 01/16/2024 2:02 PM CDT TRANSESOPHAGEAL ECHOCARDIOGRAM BINU M VAGT ? Accession#: ?? [id number] : ?1945 78 years Study Date: ?? 01/16/2024 11:16:25 AM Gender: F ?BP: ? 168/79 mmHg Height: 158.00 cm ?BSA: ?1.92 m? ? ? Weight: 91.00 kg ? Tech: ? MBL ? Referring MD: WESTLEY ROSENBAUM Site: ? [facility] Reading Location: [facility] Patient Location: Inpatient. Procedure: FELIPE, Color Doppler, Limited Spectral Doppler and 3D Imaging. Indication for study: Mitral Stenosis Cardiac Rhythm: Regular.Study quality: Excellent. Final Impressions: 1. Normal left ventricular size, normal global systolic function with an estimated EF of 55 - 60%. 2. There is flow acceleration in the LVOT. LVOT gradient was not reliable due to angle of incidence. 3. The mitral valve is calcified with moderate regurgitation and severely increased mean gradient of 11.0 mmHg at a heart rate of 72. MVA by PISA 0.7 cm2. 4. Severely enlarged left atrium. 5. Severely increased estimated pulmonary pressures by tricuspid regurgitation velocity and right atrial pressure (74 mmHg plus RAP). 6. Right ventricular cavity size is mildly enlarged, global systolic RV function is normal. 7. Mild-moderate tricuspid regurgitation. 8. No evidence of thrombus present in the left atrial appendage. 9. Negative bubble study. Procedure comments: Indications, goals, risks and alternatives of the procedure were discussed with the patient and informed consent was obtained. The patient received oral Lidocaine to anesthetized the posterior oropharynx, conscious sedation of intravenous Versed and intravenous Fentanyl. See procedural record for anesthesia details. Prior to performance of procedure, time out was called to accurately identify the patient and procedure. The Echo probe was passed without difficulty. FELIPE, Color Doppler, Limited Spectral Doppler and 3D Imaging was performed. I performed the study with fellow [id number] Natanael Burns MD. I was present throughout the examination and participated in the performance of the examination throughout the procedure. The patient developed no apparent complications during the procedure. Estimated Blood Loss: 0 ml Versed: Specimen Collected: ?Proceduralist: Natanael Mcneill MD Chamber Sizes and Function Normal left ventricular size, normal global systolic function with an estimated EF of 55 - 60%. Left atrial size is severely enlarged. The left atrial appendage is well visualized and there is no evidence of thrombus present. Normal left atrial appendage flow velocities. Right ventricular cavity size is mildly enlarged, global systolic RV function is normal. The right atrium is normal. The pulmonary artery is of normal size and origin. The sinus of Valsalva is normal sized. The ascending aorta is normal sized. Aortic arch is normal sized. Descending aorta is normal sized. Valves, RV Pressures and Diastolic Function The aortic valve is trileaflet and sclerotic, no stenosis and no regurgitation. The mitral valve is calcified, moderate mitral regurgitation. The mitral valve peak velocity is 2.11 m/s and the mean gradient is 11.0 mmHg. A severely increased gradient of 11.0 mmHg at a heart rate of 72 is calculated across the mitral valve using continuous Doppler examination. The tricuspid valve is normal in structure. Tricuspid regurgitation is mild- moderate. The tricuspid regurgitant velocity is 4.3 m/s, the estimated right ventricular systolic pressure is 74 mmHg plus right atrial pressure. There is severely increased estimated pulmonary pressure by tricuspid regurgitation velocity and right atrial pressure. The pulmonic valve is normal. Trace pulmonary regurgitation. Pulmonary veins show a normal flow pattern. The left upper, left lower , right upper and right lower pulmonary veins were well visualized. Masses, Effusion, Shunts There is no pericardial effusion. Atrial septum is intact. Agitated saline injection showed no right to left shunt at rest or following Valsalva manuever. MEASUREMENTS AND CALCULATIONS 2-D Measurements and LV Function: Ao Sinus 2.5 cm HR 72 bpm Asc Ao ?? 2.9 cm Mitral Valve: MV Mean G 11 mmHg Tricuspid Valve and estimated PA pressures: TR Vmax 4.3 m/s TR maxG 74 mmHg . This study was interpreted by an [facility] accredited facility. ??Final ?? Procedure Note Natanael Mcneill MD - 01/16/2024 TRANSESOPHAGEAL ECHOCARDIOGRAM BINU FLETCHER : 1945 78 years Study Date: 01/16/2024 11:16:25 AM Gender: F BP: 168/79 mmHg Height: 158.00 cm BSA: 1.92 m? ? ? Weight: 91.00 kg Tech: [facility] Referring MD: WESTLEY ROSENBAUM Site: [facility] Reading Location: [facility] Patient Location: Inpatient. Procedure: FELIPE, Color Doppler, Limited Spectral Doppler and 3D Imaging. Indication for study: Mitral Stenosis Cardiac Rhythm: Regular.Study quality: Excellent. Final Impressions: 1. Normal left ventricular size, normal global systolic function with anestimated EF of 55 - 60%. 2. There is flow acceleration in the LVOT. LVOT gradient was not reliabledue to angle of incidence. 3. The mitral valve is calcified with moderate regurgitation and severelyincreased mean gradient of 11.0 mmHg at a heart rate of 72. MVA by PISA0.7 cm2. 4. Severely enlarged left atrium. 5. Severely increased estimated pulmonary pressures by tricuspidregurgitation velocity and right atrial pressure (74 mmHg plus RAP). 6. Right ventricular cavity size is mildly enlarged, global systolic RVfunction is normal. 7. Mild-moderate tricuspid regurgitation. 8. No evidence of thrombus present in the left atrial appendage. 9. Negative bubble study. Procedure comments: Indications, goals, risks and alternatives of theprocedure were discussed with the patient and informed consent wasobtained. The patient received oral Lidocaine to anesthetized theposterior oropharynx, conscious sedation of intravenous Versed andintravenous Fentanyl. See procedural record for anesthesia details. Priorto performance of procedure, time out was called to accurately identifythe patient and procedure. The Echo probe was passed without difficulty.FELIPE, Color Doppler, Limited Spectral Doppler and 3D Imaging was performed.I performed the study with fellow [id number] Natanael Burns MD. I was presentthroughout the examination and participated in the performance of theexamination throughout the procedure. The patient developed no apparentcomplications during the procedure. Estimated Blood Loss: 0 ml Versed: Specimen Collected: Proceduralist: Natanael Mcneill MD Chamber Sizes and Function Normal left ventricular size, normal global systolic function with anestimated EF of 55 - 60%. Left atrial size is severely enlarged. The leftatrial appendage is well visualized and there is no evidence of thrombuspresent. Normal left atrial appendage flow velocities. Right ventricularcavity size is mildly enlarged, global systolic RV function is normal. Theright atrium is normal. The pulmonary artery is of normal size and origin.The sinus of Valsalva is normal sized. The ascending aorta is normalsized. Aortic arch is normal sized. Descending aorta is normal sized. Valves, RV Pressures and Diastolic Function The aortic valve is trileaflet and sclerotic, no stenosis and noregurgitation. The mitral valve is calcified, moderate mitralregurgitation. The mitral valve peak velocity is 2.11 m/s and the meangradient is 11.0 mmHg. A severely increased gradient of 11.0 mmHg at aheart rate of 72 is calculated across the mitral valve using continuousDoppler examination. The tricuspid valve is normal in structure. Tricuspid regurgitation ismild- moderate. The tricuspid regurgitant velocity is 4.3 m/s, theestimated right ventricular systolic pressure is 74 mmHg plus right atrialpressure. There is severely increased estimated pulmonary pressure bytricuspid regurgitation velocity and right atrial pressure. The pulmonicvalve is normal. Trace pulmonary regurgitation. Pulmonary veins show anormal flow pattern. The left upper, left lower , right upper and rightlower pulmonary veins were well visualized. Masses, Effusion, Shunts There is no pericardial effusion. Atrial septum is intact. Agitated salineinjection showed no right to left shunt at rest or following Valsalvamanuever. MEASUREMENTS AND CALCULATIONS 2-D Measurements and LV Function: Ao Sinus 2.5 cm HR 72 bpm Asc Ao 2.9 cm Mitral Valve: MV Mean G 11 mmHg Tricuspid Valve and estimated PA pressures: TR Vmax 4.3 m/s TR maxG 74 mmHg . This study was interpreted by an [facility] accredited facility. Final Westley Rosenbaum MD ECHO ORD * (ABNORMAL) CBC WITH AUTO DIFFERENTIAL (01/10/2024 9:58 AM CDT) Only the most recent of2 resultswithin the time period is included. WHITE BLOOD COUNT 6.1 4.5 - 11.0 thou/cu mm 01/10/2024 10:05 AM CDT [facility] RED BLOOD COUNT 3.82(L) 4.00 - 5.20 mil/cu mm 01/10/2024 10:05 AM CDT [facility] HEMOGLOBIN 12.0 12.0 - 16.0 g/dL 01/10/2024 10:05 AM CDT [facility] HEMATOCRIT 35.6 33.0 - 51.0 % 01/10/2024 10:05 AM CDT [facility] MCV 93 80 - 100 fL 01/10/2024 10:05 AM CDT [facility] MCH 31.4 26.0 - 34.0 pg 01/10/2024 10:05 AM CDT [facility] MCHC 33.7 32.0 - 36.0 g/dL 01/10/2024 10:05 AM CDT [facility] RDW 14.1 11.5 - 15.5 % 01/10/2024 10:05 AM CDT [facility] PLATELET COUNT 239 140 - 440 thou/cu mm 01/10/2024 10:05 AM CDT [facility] MPV 9.8 6.5 - 11.0 fL 01/10/2024 10:05 AM CDT [facility] % NEUT 48.8 % 01/10/2024 10:05 AM CDT [facility] % LYMPH 38.4 % 01/10/2024 10:05 AM CDT [facility] % MONO 11.2 % 01/10/2024 10:05 AM CDT [facility] % EOS 0.8 % 01/10/2024 10:05 AM CDT [facility] % BASO 0.8 % 01/10/2024 10:05 AM CDT [facility] ABSOLUTE NEUTROPHILS 3.0 1.7 - 7.0 thou/cu mm 01/10/2024 10:05 AM CDT [facility] ABSOLUTE LYMPHOCYTES 2.3 0.9 - 2.9 thou/cu mm 01/10/2024 10:05 AM CDT [facility] ABSOLUTE MONOCYTES 0.7 <0.9 thou/cu mm 01/10/2024 10:05 AM CDT [facility] ABSOLUTE EOSINOPHILS 0.1 <0.5 thou/cu mm 01/10/2024 10:05 AM CDT [facility] ABSOLUTE BASOPHILS 0.1 <0.3 thou/cu mm 01/10/2024 10:05 AM CDT [facility] Blood BLOOD SPECIMEN / Unknown Butterfly / Unknown 01/10/2024 9:58 AM CDT 01/10/2024 9:58 AM CDT Preeti Esposito MD HEMATOLOGY [facility] [address] [place] [address], * TSH (01/10/2024 9:58 AM CDT) Only the most recent of3 resultswithin the time period is included. TSH 3.47 0.27 - 4.20 uIU/mL 01/10/2024 6:34 PM CDT [facility] Blood BLOOD SPECIMEN / Unknown Butterfly / Unknown 01/10/2024 9:58 AM CDT 01/10/2024 9:58 AM CDT Narrative [facility] - 01/10/2024 6:34 PM CDT In Adults, TSH values between 5.00 and 10.00 uIU/ml do not necessarily indicate the presence of Hypothyroidism. Correlation with clinical findings such as presence of goiter and/or Thyroperoxidase (TPO) Antibody may be helpful. For more information please refer to KIRILL 2004; 291: 228-238. Prabha GORE CHEMISTRY [facility] [address] [place] [phone], * (ABNORMAL) FERRITIN (01/10/2024 9:58 AM CDT) FERRITIN 174.0(H) 15.0 - 150.0 ng/mL 01/10/2024 6:34 PM CDT [facility] Blood BLOOD SPECIMEN / Unknown Butterfly / Unknown 01/10/2024 9:58 AM CDT 01/10/2024 9:58 AM CDT Preeti Esposito MD CHEMISTRY Performing Organization Address [facility] Co de Phone Number [facility] [address] [place] [phone], * (ABNORMAL) VITAMIN B12 (01/10/2024 9:58 AM CDT) Pathologist [facility] VITAMIN B12 2,901(H) 232 - 1,245 pg/mL 01/10/2024 7:09 PM CDT [facility] Blood BLOOD SPECIMEN / Unknown Butterfly / Unknown 01/10/2024 9:58 AM CDT 01/10/2024 9:58 AM CDT Narrative [facility] - 01/10/2024 7:09 PM CDT Biotin supplements may cause clinically significant interference for this test assay. ??If interference is suspected, it is strongly recommended that biotin is discontinued for at least one week prior to retesting. Preeti Esposito MD CHEMISTRY Performing Organization Address [facility] Co de Phone Number [facility] [address] [place] [phone], * EKG 12 LEAD (12/22/2023 8:52 AM CDT) Preeti Esposito MD EKG ORD * TX READING EKG - NO CHARGE, COMP ONLY (12/22/2023 8:52 AM CDT) Preeti Esposito MD PB - PROVIDER READINGS * (ABNORMAL) BASIC METABOLIC PANEL (12/14/2023 10:40 AM CDT) [facility] SODIUM 137 136 - 145 mmol/L 12/14/2023 5:58 PM CDT [facility] POTASSIUM 4.9 3.5 - 5.1 mmol/L 12/14/2023 5:58 PM CDT [facility] CHLORIDE 102 98 - 107 mmol/L 12/14/2023 5:58 PM CDT [facility] CO2,TOTAL 24 22 - 29 mmol/L 12/14/2023 5:58 PM CDT [facility] ANION GAP 11 5 - 18 12/14/2023 5:58 PM CDT [facility] GLUCOSE 89 70 - 99 mg/dL 12/14/2023 5:58 PM CDT [facility] CALCIUM 9.0 8.8 - 10.2 mg/dL 12/14/2023 5:58 PM CDT [facility] BUN 18 8 - 23 mg/dL 12/14/2023 5:58 PM CDT [facility] CREATININE 0.87 0.50 - 0.90 mg/dL 12/14/2023 5:58 PM CDT [facility] BUN/CREAT RATIO 21(H) 10 - 20 5:58 PM CDT [facility] eGFR 69(L) >90 mL/min/1.7 3m2 12/14/2023 5:58 PM CDT [facility] Comment:As of 2021, eG FR is calculated by the CKD-EPI creatinine equation without race adjustment. ??eGFR can be influenced by muscle mass, exercise, and diet. ??The reported eGFR is an estimation only and is only applicable if the renal function is stable. Blood BLOOD SPECIMEN / Unknown Butterfly / Unknown 12/14/2023 10:40 AM CDT 12/14/2023 10:41 AM CDT Preeti Esposito MD CHEMISTRY [facility] [address] [place] [address], * MR SPINE LUMBAR WO (11/06/2023 10:25 AM CDT) Anatomical Region Laterality Modality Spine, LUMBAR SPINE Magnetic Res onance 11/06/2023 1:26 PM CDT Narrative 11/06/2023 1:26 PM CDT For Patients: ??As a result of the Cures Act, medical imaging exams and procedure reports are released immediately into your electronic medical record. ??You may view this report before your referring provider. ??If you have questions, please contact your health care provider. Indication: Chronic lumbar radiculopathy Technique: Multiplanar, multisequence, MRI of the lumbar spine, obtained without contrast. Comparison: Lumbar spine x-ray 08/15/2023 Findings: Levoscoliosis, apex at L2-3, with right lateral listhesis at T12-L1, L1-2, left lateral listhesis at L3-4. Accentuated lumbar lordosis, with trace retrolisthesis at L2-3. No acute osseous abnormality. Mixed Modic changes at the opposing endplates at T12-L1 through L3-L4. No suspicious bone marrow lesion. The conus medullaris terminates at L1-L2. No suspicious findings identified in the paraspinal soft tissues. The included SI joints are unremarkable. T12-L1 through L2-L3: Diffuse disc bulge. No neural foraminal or spinal canal stenosis. L3-L4: Diffuse right eccentric disc bulge, facet arthropathy. No left, mild right neural foraminal narrowing. No spinal canal stenosis. L4-L5: Mild diffuse disc bulge, moderately advanced left asymmetric facet arthropathy. Mild right, moderate left neural foraminal stenosis. Severe spinal canal stenosis with potential descending L5 nerve root impingement along both lateral recesses. L5-S1: Minimal left eccentric disc bulge, moderately advanced left asymmetric facet arthropathy. No right, mild left neural foraminal narrowing. No spinal canal stenosis. Impression: 1. Lumbar spondylosis, levoscoliosis, multilevel spondylolisthesis and Modic endplate changes as detailed. 2. At L4-L5, severe spinal canal stenosis with potential descending L5 nerve root impingement along both lateral recesses, and moderate left neural foraminal stenosis. 3. Additional mild neural foraminal narrowing elsewhere. Dictated by Aline Estrada MD @ 11/06/2023 1:26:15 PM (Electronically Signed) Procedure Note Aline Estrada DO - 11/06/2023 For Patients: As a result of the Century Cures Act, medical imagingexams and procedure reports are released immediately into your electronicmedical record. You may view this report before your referring provider.If you have questions, please contact your health care provider. Indication: Chronic lumbar radiculopathy Technique: Multiplanar, multisequence, MRI of the lumbar spine, obtained withoutcontrast. Comparison: Lumbar spine x-ray 08/15/2023 Findings: Levoscoliosis, apex at L2-3, with right lateral listhesis at T12-L1, L1-2,left lateral listhesis at L3-4. Accentuated lumbar lordosis, with traceretrolisthesis at L2-3. No acute osseous abnormality. Mixed Modic changesat the opposing endplates at T12-L1 through L3-L4. No suspicious bonemarrow lesion. The conus medullaris terminates at L1-L2. No suspiciousfindings identified in the paraspinal soft tissues. The included SI jointsare unremarkable. T12-L1 through L2-L3: Diffuse disc bulge. No neural foraminal or spinalcanal stenosis. L3-L4: Diffuse right eccentric disc bulge, facet arthropathy. No left,mild right neural foraminal narrowing. No spinal canal stenosis. L4-L5: Mild diffuse disc bulge, moderately advanced left asymmetric facetarthropathy. Mild right, moderate left neural foraminal stenosis. Severespinal canal stenosis with potential descending L5 nerve root impingementalong both lateral recesses. L5-S1: Minimal left eccentric disc bulge, moderately advanced leftasymmetric facet arthropathy. No right, mild left neural foraminalnarrowing. No spinal canal stenosis. Impression: 1. Lumbar spondylosis, levoscoliosis, multilevel spondylolisthesis andModic endplate changes as detailed. 2. At L4-L5, severe spinal canal stenosis with potential descending A8ihekr root impingement along both lateral recesses, and moderate leftneural foraminal stenosis. 3. Additional mild neural foraminal narrowing elsewhere. Dictated by Aline Estrada MD @ 11/06/2023 1:26:15 PM (Electronically Signed) Prabha GORE MR from Last 3 Months Advance Directives Documents on File Type Date Recorded Patient Library Monitor Maureen ALMENDAREZ 07/18/2023 * Full Code (Latest Code Status on File) Date Activated Date Inactivated Comments 01/16/2024 11:27 AM 01/17/2024 2:07 AM Question Answer Comments Code Status Discussion: Reviewed Preferences Care Teams Groover And Striper Operator Relationship Specialty Start Date End Date Prabha Nice PA [address] [place] [address] PCP - General Physician Sales Attendant [employer] 05/18/23
--- OUTSIDE RECORDS SUMMARY | 2024-02-06 11:23 | XMS_ITS | Continuity of Care Document ---
Author Name [facility] Organization [facility] Care Team Providers Care Laboratory [facility] Name Role Phone [facility] Unavailable Unavailable Medications Combined list of outpatient [...] ORAL, APOTEX ORION, 1000 ea. BOTTLE Active [id number] 2023 14 Pharmac y Data Transac tion Service Facilit y ATORVASTATI N CALCIUM (atorvastat in calcium), 20 MG, TABLET, ORAL, [facility], 500 ea. BOTTLE Active [id number] 4 2023 30 Pharmac y Data Transac tion Service Facilit y ATORVASTATI N CALCIUM (atorvastat in calcium), 20 MG, TABLET, ORAL, [employer] [facility], 500 ea. BOTTLE Active [id number] 4 2023 30 Pharmac y Data Transac tion Service Facilit y atorvastati n calcium ([employer]) 1000 TABLET in 1 BOTTLE Active [id number] 2023 30 Pharmac y Data Transac tion Service Facilit y atorvastati n calcium ([employer]) 1000 TABLET in 1 BOTTLE Active [id number] 2023 30 Pharmac y Data Transac tion Service Facilit y BUPROPION HCL (bupropion HCl), 100 MG, TABLET, ORAL, [facility], 100 ea. BOTTLE Active [id number] 2023 28 Pharmac y Data Transac tion Service Facilit y BUPROPION HCL (BUPROPION HCL), 100MG, TABLET, ORAL, APOTEX ORION, 100 ea. BOTTLE Active [id number] 4 2023 90 Pharmac y Data Transac tion Service Facilit y CETIRIZINE HCL (cetirizine HCl), 10 MG, TABLET, ORAL, [facility], 300 ea. BOTTLE Active [id number] 2023 30 Pharmac y Data Transac tion Service Facilit y CETIRIZINE HCL (CETIRIZINE HCL), 5MG, TABLET, ORAL, MYLAN, 100 ea. BOTTLE Cancele d [id number] : 2023 0 Pharmac y Data Transac tion Service Facilit y CETIRIZINE HCL (CETIRIZINE HCL), 5MG, TABLET, ORAL, MYLAN, 100 ea. BOTTLE Active [id number] 2023 15 Pharmac y Data Transac tion Service Facilit y CETIRIZINE HCL (CETIRIZINE HCL), 5MG, TABLET, ORAL, MYLAN, 100 ea. BOTTLE Active [id number] 2023 15 Pharmac y Data Transac tion Service Facilit y CETIRIZINE HCL (CETIRIZINE HCL), 5MG, TABLET, ORAL, MYLAN, 100 ea. BOTTLE Active [id number] 2023 15 Pharmac y Data Transac tion Service Facilit y FLUCONAZOLE (fluconazol e), 100 MG, TABLET, ORAL, ZYDUS [facility]ARMACEU, 100 ea. BOTTLE Active [id number] 2023 14 Pharmac y Data Transac tion Service Facilit y FUROSEMIDE (FUROSEMIDE ), 20MG, TABLET, ORAL, [facility] 1000 ea. BOTTLE Active [id number] 2023 8 Pharmac y Data Transac tion Service Facilit y FUROSEMIDE (FUROSEMIDE ), 20MG, TABLET, ORAL, [facility] 1000 ea. BOTTLE Active [id number] 2023 8 Pharmac y Data Transac tion Service Facilit y FUROSEMIDE (FUROSEMIDE ), 20MG, TABLET, ORAL, [facility] 1000 ea. BOTTLE Active [id number] 2023 8 Pharmac y Data Transac tion Service Facilit y GABAPENTIN (gabapentin ), 600 MG, TABLET, ORAL, [facility], 500 ea. BOTTLE Active [id number] 2023 120 Pharmac y Data Transac tion Service Facilit y GABAPENTIN (GABAPENTIN ), 600 MG, TABLET, ORAL, [facility], 500 ea. BOTTLE Active [id number] 2023 120 Pharmac y Data Transac tion Service Facilit y GABAPENTIN (gabapentin ), 600 MG, TABLET, ORAL, [facility], 500 ea. BOTTLE Active [id number] 2023 63 Pharmac y Data Transac tion Service Facilit y GABAPENTIN (gabapentin ), 600 MG, TABLET, ORAL, [facility], 500 ea. BOTTLE Active [id number] 2023 135 Pharmac y Data Transac tion Service Facilit y GABAPENTIN (gabapentin ), 600 MG, TABLET, ORAL, [facility], 500 ea. BOTTLE Active [id number] 2023 135 Pharmac y Data Transac tion Service Facilit y HYDROCHLORO THIAZIDE (hydrochlor othiazide), 12.5 MG, CAPSULE, ORAL, [facility], 500 ea. BOTTLE Active [id number] 2023 14 Pharmac y Data Transac tion Service Facilit y HYDROCHLORO THIAZIDE (HYDROCHLOR OTHIAZIDE), 12.5 MG, TABLET, ORAL, [facility], 1000 ea. BOTTLE Active [id number] 2023 30 Pharmac y Data Transac tion Service Facilit y HYDROCHLORO THIAZIDE (HYDROCHLOR OTHIAZIDE), 12.5 MG, TABLET, ORAL, [facility], 1000 ea. BOTTLE Active [id number] 2023 30 Pharmac y Data Transac tion Service Facilit y HYDROCHLORO THIAZIDE (HYDROCHLOR OTHIAZIDE), 12.5 MG, TABLET, ORAL, [facility], 1000 ea. BOTTLE Active [id number] 2023 30 Pharmac y Data Transac tion Service Facilit y HYDROCHLORO THIAZIDE (HYDROCHLOR OTHIAZIDE), 12.5 MG, TABLET, ORAL, [facility], 1000 ea. BOTTLE Active [id number] 2023 30 Pharmac y Data Transac tion Service Facilit y LEVOTHYROXI NE SODIUM (levothyrox ine sodium), 137 MCG, TABLET, ORAL, [facility], 1000 ea. BOTTLE Active [id number] 2023 30 Pharmac y Data Transac tion Service Facilit y LEVOTHYROXI NE SODIUM (levothyrox ine sodium), 137 MCG, TABLET, ORAL, [facility], 1000 ea. BOTTLE Active [id number] 2023 30 Pharmac y Data Transac tion Service Facilit y LEVOTHYROXI NE SODIUM (levothyrox ine sodium), 137 MCG, TABLET, ORAL, [facility], 1000 ea. BOTTLE Active [id number] 2023 30 Pharmac y Data Transac tion Service Facilit y LEVOTHYROXI NE SODIUM (levothyrox ine sodium), 137 MCG, TABLET, ORAL, [facility], 1000 ea. BOTTLE Active [id number] 2023 30 Pharmac y Data Transac tion Service Facilit y LEVOTHYROXI NE SODIUM (levothyrox ine sodium), 150 MCG, TABLET, ORAL, [facility], 1000 ea. BOTTLE Active [id number] 2023 30 Pharmac y Data Transac tion Service Facilit y LIDOCAINE-H YDROCORTISO NE (HYDROCORTI SONE AC/LIDOCAIN E), 0.5 %-3 %, CREAM (G), TOPICAL, [facility], 28.35 g TUBE Cancele d [id number] : 2023 0 Pharmac y Data Transac tion Service Facilit y LOSARTAN POTASSIUM (LOSARTAN POTASSIUM), 100 MG, TABLET, ORAL, [facility], 1000 ea. BOTTLE Active [id number] 2023 14 Pharmac y Data Transac tion Service Facilit y LOSARTAN POTASSIUM (LOSARTAN POTASSIUM), 100 MG, TABLET, ORAL, [facility], 1000 ea. BOTTLE Active [id number] 2023 30 Pharmac y Data Transac tion Service Facilit y LOSARTAN POTASSIUM (LOSARTAN POTASSIUM), 100 MG, TABLET, ORAL, [facility], 1000 ea. BOTTLE Active [id number] 2023 30 Pharmac y Data Transac tion Service Facilit y LOSARTAN POTASSIUM (LOSARTAN POTASSIUM), 100 MG, TABLET, ORAL, [facility], 1000 ea. BOTTLE Active [id number] 2023 30 Pharmac y Data Transac tion Service Facilit y LOSARTAN POTASSIUM (LOSARTAN POTASSIUM), 100 MG, TABLET, ORAL, [facility], 1000 ea. BOTTLE Active [id number] 2023 30 Pharmac y Data Transac tion Service Facilit y LOSARTAN POTASSIUM (LOSARTAN POTASSIUM), 100 MG, TABLET, ORAL, [facility], 1000 ea. BOTTLE Active [id number] 2023 30 Pharmac y Data Transac tion Service Facilit y LOSARTAN POTASSIUM (LOSARTAN POTASSIUM), 50 MG, TABLET, ORAL, [facility], 1000 ea. BOTTLE Active [id number] 2023 30 Pharmac y Data Transac tion Service Facilit y MUPIROCIN (MUPIROCIN) , 2%, OINT.(GM), TOPICAL, [employer] 22 g TUBE Active [id number] 2023 22 Pharmac y Data Transac tion Service Facilit y OMEPRAZOLE (omeprazole ), 40 MG, CAPSULE , ORAL, [employer]ENMARK [facility]ARMA, 1000 ea. BOTTLE Active [id number] 2023 30 Pharmac y Data Transac tion Service Facilit y OMEPRAZOLE (omeprazole ), 40 MG, CAPSULE , ORAL, GLENMARK PHARMA, 1000 ea. BOTTLE Active [id number] 2023 14 Pharmac y Data Transac tion Service Facilit y OMEPRAZOLE (omeprazole ), 40 MG, CAPSULE , ORAL, GLENMARK PHARMA, 1000 ea. BOTTLE Active [id number] 2023 30 Pharmac y Data Transac tion Service Facilit y OMEPRAZOLE (omeprazole ), 40 MG, CAPSULE , ORAL, GLENMARK PHARMA, 1000 ea. BOTTLE Active [id number] 2023 30 Pharmac y Data Transac tion Service Facilit y OMEPRAZOLE (omeprazole ), 40 MG, CAPSULE DR, ORAL, [employer], 1000 ea. BOTTLE Active [id number] 2023 30 Pharmac y Data Transac tion Service Facilit y OXYBUTYNIN CHLORIDE ER (OXYBUTYNIN CHLORIDE), 5 MG, TAB ER 24, ORAL, [employer], 500 ea. BOTTLE Active [id number] 2023 14 Pharmac y Data Transac tion Service Facilit y TRAMADOL HCL (tramadol HCl), 50 MG, TABLET, ORAL, AMNEAL PHARMACE, 500 ea. BOTTLE Active [id number] 2023 30 Pharmac y Data Transac tion Service Facilit y TRAMADOL HCL (tramadol HCl), 50 MG, TABLET, ORAL, AMNEAL PHARMACE, 500 ea. BOTTLE Active [id number] 2023 30 Pharmac y Data Transac tion Service Facilit y VENLAFAXINE HCL (venlafaxin e HCl), 75 MG, TABLET, ORAL, [facility]ARM[facility], 100 ea. BOTTLE Active [id number] 2023 90 Pharmac y Data Transac tion Service Facilit y VENLAFAXINE HCL (venlafaxin e HCl), 75 MG, TABLET, ORAL, [facility], 100 ea. BOTTLE Active [id number] 2023 90 Pharmac y Data Transac tion Service Facilit y VENLAFAXINE HCL (venlafaxin e HCl), 75 MG, TABLET, ORAL, [facility], 100 ea. BOTTLE Active [id number] 2023 90 Pharmac y Data Transac tion Service Facilit y VENLAFAXINE HCL (venlafaxin e HCl), 75 MG, TABLET, ORAL, [facility]ARM[facility], 100 ea. BOTTLE Active [id number] 2023 90 Pharmac y Data Transac tion Service Facilit y VENLAFAXINE HCL (venlafaxin e HCl), 75 MG, TABLET, ORAL, [facility]ARM[facility], 100 ea. BOTTLE Active [id number] 2023 90 Pharmac y Data Transac tion Service Facilit y VENLAFAXINE HCL (VENLAFAXIN E HCL), 75 MG, TABLET, ORAL, [facility], 100 ea. BOTTLE Active [id number] 2023 42 Pharmac y Data Transac tion Service Facilit y Social History Combined list of available smoking, tobacco, and other social history from Department of Defense and Veterans Affairs facilities. Social History Type Response Date Comment [facility] This section is an empty social history section. [employer]
--- OUTSIDE RECORDS SUMMARY | 2024-02-06 11:23 | XMS_ITS | Clinical Summary ---
Author Organization [place] Address [facility] [place] [address] Care Team Providers Care Aircraft Captain Name Role Phone Juan Rojas MD Primary Care Provider [phone] Allergies Active Allergy Reactions Criticality Noted Date [...] Comments Blood Pressure 155/66 03/27/2023 8:11 AM MISSION ANALYST Pulse 90 03/27/2023 8:11 AM MISSION ANALYST Temperature 36.5 ??C (97.7 ??F) 03/27/2023 8:11 AM CS T Respiratory Rate 18 03/27/2023 8:11 AM MISSION ANALYST Oxygen Saturation 93% 03/27/2023 8:11 AM MISSION ANALYST Inhaled Oxygen Concentration - - Weight 98.3 kg (216 lb 11.4 oz) 03/22/2023 3:57 PM MISSION ANALYST Height 160 cm (5' 3) 03/22/2023 5:00 PM MISSION ANALYST Body Mass Index 38.39 03/22/2023 3:57 PM MISSION ANALYST Plan of Treatment Health Maintenance Due Date Last Done Comments ADVANCE CARE PLANNING 1945 ANNUAL REVIEW OF HM ORDERS 1945 DEXA 1945 LIPID 1946 TSH W/FREE T4 REFLEX 1946 HEPATITIS C SCREENING 1964 FALL RISK ASSESSMENT 2011 ZOSTER IMMUNIZATION (2 of 3) 09/03/2013 07/09/2013 Pneumococcal Vaccine: 65+ Years (3 of 3 - PPSV23 or PCV20) 11/12/2019 11/11/2014, 09/28/2009, 05/01/2007 RSV VACCINE (1 - 1-dose 75+ series) 2021 MEDICARE ANNUAL WELLNESS VISIT 02/22/2022 02/22/2021 PHQ-2 (once per calendar year) 2023 COVID-19 Vaccine (5 - season) 2023 03/09/2022, 02/22/2021, 07/29/2020, Additional history exists INFLUENZA VACCINE (#1) 2023 , 02/17/2022, 02/15/2021, Additional history exists GLUCOSE 03/27/2026 03/27/2023, 03/02, 03/25/2023, Additional history exists DTAP/TDAP/TD IMMUNIZATION (3 - Td or Tdap) 12/27/2032 12/27/2022, 03/21/2012, 09/28/2009, Additional history exists HPV IMMUNIZATION Aged Out [...] BASIC METABOLIC PANEL Routine 03/27/2023 6:31 AM MISSION ANALYST from Last 3 Months or Most Recently Relevant to Health Maintenance Results * (ABNORMAL) Basic metabolic panel (03/27/2023 6:31 AM MISSION ANALYST) Sodium 134(L) 135 - 145 mmol/L 03/27/2023 6:59 AM MISSION ANALYST [facility] Comment:Reference intervals for this test were updated on 01/24/2023 to more accurately reflect our healthy population. There may be differences in the flagging of prior results with similar values performed with this method. Interpretation of those prior results can be made in the context of the updated reference intervals. Potassium 4.1 3.4 - 5.3 mmol/L 03/27/2023 6:59 AM MISSION ANALYST [facility] Chloride 101 98 - 107 mmol/L 03/27/2023 6:59 AM [facility]ION ANA[facility]ST [facility] Carbon Dioxide (CO2) 24 22 - 29 mmol/L 03/27/2023 6:59 AM [facility] Anion Gap 9 7 - 15 mmol/L 03/27/2023 6:59 AM [facility] Urea Nitrogen 15.5 8.0 - 23.0 mg/dL 03/27/2023 6:59 AM [facility] Creatinine 0.84 0.51 - 0.95 mg/dL 03/27/2023 6:59 AM [facility] GFR Estimate 72 >60 mL/min/1. 73m2 03/27/2023 6:59 AM [facility] Calcium 8.5(L) 8.8 - 10.2 mg/dL 03/27/2023 6:59 AM [facility] Glucose 102(H) 70 - 99 mg/dL 03/27/2023 6:59 AM [facility] Blood STRUCTURE OF RIGHT UPPER LIMB / Unknown Venipuncture / Unknown 03/27/2023 6:31 AM MISSION ANALYST 03/27/2023 6:39 AM MISSION ANALYST Bernice Stearns MD LAB - BLOOD ORDER [facility] [address] Lab (1st floor, no room number) [place] [address], [facility] [phone] from Last 3 Months or Most Recently Relevant to Health Maintenance Advance Directives For more information, please contact: [phone] * Full Code (Latest Code Status on File) Date Activated Date Inactivated Comments 03/22/2023 6:21 PM 03/27/2023 3:49 PM All basic and advanced life-sustaining interventions are performed as appropriate Question Answer Comments Code status determined by: Discussion with radhae nt/ legal decision maker Care Teams Aircraft Captain Relationship Specialty Start Date End Date Juan Rojas MD PCP - General Family Medicine 03/23/23
== END 2024-02-06 10:08 | disposition home or self-care (01) ==
LOC: INJ CL 10:09
PROVIDERS: PCP Physician Assistant; Visit Provider Family Medicine
DX: M54.16 Radiculopathy, lumbar region (principal); M51.369 Other intervertebral disc degeneration, lumbar region without mention of lumbar back pain or lower extremity pain
CPT/HCPCS: 62323; J0702; Q9966

== ENCOUNTER 2024-03-04 13:59 | Emergency (ER) | payer MEDICARE, OTHER, SELFPAY ==
[2024-03-04 14:06] VITALS: BP 153/57; PULSE 62; RESP 18; TEMP 36.1; O2SAT 94; BMI 35.4
--- NOTE | 2024-03-04 14:33 | CRLHL7_ITS ---
For Patients: As a result of the Century Cures Act, medical imaging exams and procedure reports are released immediately into your electronic medical record. You may view this report before your referring provider. If you have questions, please contact your health care provider. INDICATION: Dizziness COMPARISON: None. TECHNIQUE: CT of the head without contrast. FINDINGS: Brain, ventricles, and extra-axial spaces: No acute intracranial hemorrhage. Brandt-white differentiation is grossly preserved. Bhyd-nj-mjjmeaor hypoattenuating changes in the white matter which are nonspecific, but commonly attributable to chronic microangiopathic change. Size of the ventricles and sulci appears to be commensurate with age. There are intracranial vascular calcifications. Bones: No acute osseous findings. Visualized paranasal sinuses are clear. Visualized mastoid air cells are clear. Miscellaneous: Status post bilateral lens replacement. IMPRESSION: No acute intracranial noncontrast CT findings. Please note that all CT scans at this facility use dose modulation, iterative reconstruction, and/or weight-based dosing when appropriate to reduce radiation dose to as low as reasonably achievable. Dictated by Stefano Olivier MD @ 03/04/2024 3:54:14 PM (Electronically Signed)
--- NOTE | 2024-03-04 14:38 | ED.GENADULT ---
HPI - General Adult General Date Seen: 03/04/24 <Henrik Lyons - Last Filed: 03/04/24 17:31> Chief complaint: Dizziness/Vertigo <Henrik Lyons - Last Filed: 03/04/24 17:31> Stated complaint: Dizzy <Henrik Lyons - Last Filed: 03/04/24 17:31> Time Seen by Provider: 03/04/24 14:13 <Henrik Lyons - Last Filed: 03/04/24 17:31> Source: patient <Henrik Lyons DO - Last Filed: 03/04/24 17:31> Mode of arrival: ambulatory <Henrik Lyons - Last Filed: 03/04/24 17:31> Limitations: no limitations <Henrik Lyons - Last Filed: 03/04/24 17:31> History of Present Illness HPI narrative: Patient is a 78-year-old female presenting to the emergency department for difficulty hearing, dizziness, shortness of breath. The past 2 months she has been having muffled hearing and describes this ?feels like there are marbles rolling around.She is scheduled to see the education consultant for this tomorrow. She also states for the past 4 days she has been having episodes of dizziness it seems to come and go. It is worse when she gets up and then after she stands for a short while the symptoms resolved. She does have some mild dizziness they and bed to. She states that is worse a few days ago whole room is spinning but currently while laying in bed she still has a slight sensation of the room spinning but it is much slowe. The the the she is also concerned about her shortness of breath. She has been having chronic shortness of breath but states it has been much worse over the past couple days and she is having some difficulty ambulating due to the shortness of breath. She is scheduled to see a plater printed circuit board panels due to a heart murmur she has. S she states all these dizziness is making her nauseated but she is not having any associated abdominal pain. Has been able to eat and drink without issues. She does states she currently feels slightly nauseated. Has had a blood clot back in the 1960s. Has not noticed any lower extremity swelling at this time. Denies headache, vision changes, weakness, numbness, chest pain, diarrhea, constipation. <Henrik Lyons, DO - Last Filed: 03/04/24 17:31> Related Data Home medications: Home Medications ?Medication ?Instructions ?Recorded ?Confirmed cyanocobalamin (vitamin B-12) 2,000 mcg PO DAILY@1200 12/27/22 03/04/24 1,000 mcg tablet diclofenac sodium 1 % topical gel 4 g topical QID PRN pain 12/27/22 03/04/24 docusate sodium 100 mg capsule 100 mg PO HS 12/27/22 03/04/24 fluticasone propionate 50 2 spray intranasal DAILY PRN 12/27/22 03/04/24 mcg/actuation nasal spray,suspension melatonin 3 mg tablet 4.5 mg PO HS insomnia 12/27/22 03/04/24 multivitamin with minerals-folic 2 tab PO DAILY@1200 12/27/22 03/04/24 acid 80 mcg chewable tablet (Centrum Adult 50 Plus) omeprazole 40 mg capsule,delayed 40 mg PO DAILY 12/27/22 03/04/24 release venlafaxine 75 mg tablet 75 mg PO TID 12/27/22 03/04/24 acetaminophen 500 mg tablet 1,000 mg PO 3XD 03/22/23 03/04/24 atorvastatin 20 mg tablet 20 mg PO HS 03/22/23 03/04/24 cholecalciferol (vitamin D3) 50 50 mcg PO DAILY@1200 03/22/23 03/04/24 mcg (2,000 unit) capsule furosemide 20 mg tablet 20 mg PO MOFR 03/22/23 03/04/24 cetirizine 5 mg tablet 10 mg PO Q48H 09/15/23 03/04/24 hydrochlorothiazide 12.5 mg tablet 12.5 mg PO QAM 09/15/23 03/04/24 hydrocodone 10 mg-acetaminophen 15 ml PO Q4-6H PRN 09/15/23 09/15/23 325 mg/15 mL (15 mL) oral solution lactase 3,000 unit tablet 3,000 unit PO .4xd 09/15/23 03/04/24 losartan 50 mg tablet 100 mg PO HS 09/15/23 03/04/24 metoprolol succinate 50 mg 50 mg PO QDAY 10/12/23 03/04/24 tablet,extended release 24 hr Previous Rx's ?Medication ?Instructions ?Recorded bupropion HCl 100 mg tablet 100 mg PO BID #180 tabs 02/06/23 gabapentin 600 mg tablet 900 mg (1.5 x 600 mg) PO TID #405 02/06/23 tabs hydrocortisone 2.5 % topical cream 1 applic topical BID PRN rash #28 02/06/23 grams levothyroxine 137 mcg tablet 137 mcg PO DAILY #90 tabs 02/06/23 tramadol 50 mg tablet 50 mg PO QAM #90 tabs 02/06/23 nystatin 100,000 unit/gram topical 1 applic topical TID #15 grams 09/15/23 powder meclizine 12.5 mg tablet 12.5 mg PO TID PRN #20 tabs 03/04/24 <Henrik Lyons DO - Last Filed: 03/04/24 17:31> Allergies/adverse reactions: Allergies Allergy/AdvReac Type Severity Reaction Status Date / Time droperidol Allergy Unknown Verified 03/04/24 17:16 metoclopramide (From Reglan) Allergy Unknown Verified 03/04/24 17:16 Polyglactin Allergy Unknown Verified 03/04/24 17:16 Sulfa (Sulfonamide Allergy Unknown Verified 03/04/24 17:16 Antibiotics) Reglan Allergy Unknown Uncoded 03/04/24 17:16 <Henrik Lyons DO - Last Filed: 03/04/24 17:31> Review of Systems Status of ROS: Reports: 10 or more systems reviewed and unremarkable except as noted in History and below <Henrik Lyons DO - Last Filed: 03/04/24 17:31> [facility] Medical History: Medical History Small bowel obstruction ?K56.609 - Unspecified intestinal obstruction, unspecified as to partial versus complete obstruction (ICD-10) POLST (Physician Orders for Life-Sustaining Treatment) (~08/26/21) ?Z78.9 - Other specified health status (ICD-10) History of renal stone ?Z87.442 - Personal history of urinary calculi (ICD-10) History of DVT (deep vein thrombosis) ?Z86.718 - Personal history of other venous thrombosis and embolism (ICD-10) History of ischemic bowel disease (~2005) ?Z87.19 - Personal history of other diseases of the digestive system (ICD-10) Bleeding gastric varices (~2012) ?I86.4 - Gastric varices (ICD-10) <Henrik Lyons DO - Last Filed: 03/04/24 17:31> Surgical History: Surgical History S/P bunionectomy ?Z98.890 - Other specified postprocedural states (ICD-10) S/P repair of ventral hernia ?Z98.890 - Other specified postprocedural states (ICD-10) ?Z87.19 - Personal history of other diseases of the digestive system (ICD-10) H/O thumb surgery ?Z98.890 - Other specified postprocedural states (ICD-10) S/P carpal tunnel release ?Z98.890 - Other specified postprocedural states (ICD-10) Status post bilateral knee replacements (~2014) ?Z96.653 - Presence of artificial knee joint, bilateral (ICD-10) S/P colectomy ?Z90.49 - Acquired absence of other specified parts of digestive tract (ICD-10) S/P gastric bypass ?Z98.84 - Bariatric surgery status (ICD-10) <Henrik Lyons DO - Last Filed: 03/04/24 17:31> Social History: Social History What is your current living situation?: I presently have a place to live Problems where you live: no known problems In the past 12 months, utilities in danger of being shut off: no In past 12 months, lack of transportation kept you from medical appts, meetings, work, or getting things needed for daily living: no In the past 12 mos, have been you worried that your food would run out before you had money to buy more?: never true In the past 12 mos, the food you bought just didn't last and you didn't have money to buy more?: sometimes true Smoking Status: Never smoker Do you use any of these nicotine containing products: None Second hand tobacco smoke exposure: No How often do you have a drink containing alcohol: monthly or less How many standard drinks containing alcohol do you have on a typical day: 1 or 2 AUDIT-C Alcohol total score: 1 Non-prescribed substance use: denies use How often does anyone, including family, friends and others, physically hurt you: never How often does anyone, including family, friends and others, insult or talk down to you: never How often does anyone, including family, friends and others, threaten you with harm: never How often does anyone, including family, friends and others, scream or curse at you: never Little interest or pleasure in doing things: several days Feeling down, depressed, or hopeless: several days service: No <Henrik Lyons DO - Last Filed: 03/04/24 17:31> Exam Narrative: Exam Narrative: Const: Well-nourished, Well-developed, in mild distress Eyes: PERRL, no conjunctival injection, and symmetrical lids HENT: Atraumatic external nose and ears. Moist mucous membranes. Neck: Symmetric, trachea midline, No thyromegaly. CVS: RRR, diastolic murmur heard is in the right 2nd intercostal space. Peripheral pulses 2+ and equal in all extremities RESP: Unlabored respiratory effort. Clear to auscultation bilaterally. GI: Nontender/Nondistended, No rebound or guarding. MSK:Extremities w/o deformity, Normal Active ROM Skin: Warm, Dry. No rashes or lesions. Neuro: Normal Muscle tone, No focal neurological deficits. See case noted on head impulse test, no abnormality on test of skew, nystagmus to the right Psych: Awake, Alert, & Oriented x3. Appropriate mood and affect. <Henrik Lyons DO - Last Filed: 03/04/24 17:31> Const: Vital Signs, click to edit/add: Vital Signs - 24 hr 03/04/24 14:06 03/04/24 14:51 03/04/24 18:00 Temperature 97.0 F L 98.0 F Pulse Rate [Pulse Oximeter] 62 72 Pulse Rate [orthos tatic lying] 67 Pulse Rate [orthos tatic sitting] 67 Pulse Rate [orthos tatic standing] 96 Respiratory Rate 18 18 Blood Pressure [Ri ght Upper Arm] 153/57 H 197/90 H Blood Pressure [or thostatic lying] 151/77 H Blood Pressure [or thostatic sitting] 166/73 H Blood Pressure [or thostatic standing ] 157/71 H Pulse Oximetry 94 96 Oxygen Delivery Me thod Room Air Room Air <Henrik Lyons DO - Last Filed: 03/04/24 17:31> Vital Signs, click to edit/add: Vital Signs - 24 hr 03/04/24 14:06 03/04/24 14:51 03/04/24 18:00 Temperature 97.0 F L 98.0 F Pulse Rate [Pulse Oximeter] 62 72 Pulse Rate [orthos tatic lying] 67 Pulse Rate [orthos tatic sitting] 67 Pulse Rate [orthos tatic standing] 96 Respiratory Rate 18 18 Blood Pressure [Ri ght Upper Arm] 153/57 H 197/90 H Blood Pressure [or thostatic lying] 151/77 H Blood Pressure [or thostatic sitting] 166/73 H Blood Pressure [or thostatic standing ] 157/71 H Pulse Oximetry 94 96 Oxygen Delivery Me thod Room Air Room Air <Prabha Michaud MD - Last Filed: 03/04/24 19:23> Course Vital Signs Vital signs: Initial Vital Signs Temperature 97.0 F L 03/04/24 14:06 Temperature Source Temporal Artery Scan 03/04/24 14:06 Pulse Rate 62 03/04/24 14:06 Respiratory Rate 18 03/04/24 14:06 Blood Pressure 153/57 H 03/04/24 14:06 Blood Pressure Mean 89 03/04/24 14:06 Blood Pressure Position Supine 03/04/24 14:06 Pulse Oximetry 94 03/04/24 14:06 Oxygen Delivery Method Room Air 03/04/24 14:06 Vital Signs Temperature 97.0 F L 03/04/24 14:06 Pulse Rate 62 03/04/24 14:06 Respiratory Rate 18 03/04/24 14:06 Blood Pressure 153/57 H 03/04/24 14:06 Pulse Oximetry 94 03/04/24 14:06 Oxygen Delivery Method Room Air 03/04/24 14:06 Temperature 98.0 F 03/04/24 18:00 Pulse Rate 72 03/04/24 18:00 Respiratory Rate 18 03/04/24 18:00 Blood Pressure 197/90 H 03/04/24 18:00 Pulse Oximetry 96 03/04/24 18:00 Oxygen Delivery Method Room Air 03/04/24 18:00 <Henrik Lyons DO - Last Filed: 03/04/24 17:31> Initial Vital Signs Temperature 97.0 F L 03/04/24 14:06 Temperature Source Temporal Artery Scan 03/04/24 14:06 Pulse Rate 62 03/04/24 14:06 Respiratory Rate 18 03/04/24 14:06 Blood Pressure 153/57 H 03/04/24 14:06 Blood Pressure Mean 89 03/04/24 14:06 Blood Pressure Position Supine 03/04/24 14:06 Pulse Oximetry 94 03/04/24 14:06 Oxygen Delivery Method Room Air 03/04/24 14:06 Vital Signs Temperature 97.0 F L 03/04/24 14:06 Pulse Rate 62 03/04/24 14:06 Respiratory Rate 18 03/04/24 14:06 Blood Pressure 153/57 H 03/04/24 14:06 Pulse Oximetry 94 03/04/24 14:06 Oxygen Delivery Method Room Air 03/04/24 14:06 Temperature 98.0 F 03/04/24 18:00 Pulse Rate 72 03/04/24 18:00 Respiratory Rate 18 03/04/24 18:00 Blood Pressure 197/90 H 03/04/24 18:00 Pulse Oximetry 96 03/04/24 18:00 Oxygen Delivery Method Room Air 03/04/24 18:00 <Prabha Michaud MD - Last Filed: 03/04/24 19:23> Medications Administered Medications: Discontinued Medications Generic Name Dose Route Start Last Admin Trade Name Isidoroq PRN Reason Stop Dose Admin Furosemide 40 mg 03/04/24 18:58 03/04/24 19:10 Furosemide 10 Mg/Ml Inj IVP 03/04/24 18:59 40 mg ONCE ONE Administration Sodium Chloride 500 mls @ 1,000 mls/hr 03/04/24 15:03 03/04/24 16:51 0.9 % Sodium Chloride 500 Ml IV 03/04/24 15:32 Infused .Q30M ONE Infusion Meclizine HCl 25 mg 03/04/24 17:03 03/04/24 17:29 Meclizine Hcl 25 Mg Tablet PO 03/04/24 17:04 25 mg ONCE ONE Administration Ondansetron HCl 4 mg 03/04/24 14:33 03/04/24 15:20 Ondansetron 2 Mg/Ml Inj IVP 03/04/24 14:34 Not Given ONCE ONE <Henrik Lyons DO - Last Filed: 03/04/24 17:31> Discontinued Medications Generic Name Dose Route Start Last Admin Trade Name Charly PRN Reason Stop Dose Admin Furosemide 40 mg 03/04/24 18:58 03/04/24 19:10 Furosemide 10 Mg/Ml Inj IVP 03/04/24 18:59 40 mg ONCE ONE Administration Sodium Chloride 500 mls @ 1,000 mls/hr 03/04/24 15:03 03/04/24 16:51 0.9 % Sodium Chloride 500 Ml IV 03/04/24 15:32 Infused .Q30M ONE Infusion Meclizine HCl 25 mg 03/04/24 17:03 03/04/24 17:29 Meclizine Hcl 25 Mg Tablet PO 03/04/24 17:04 25 mg ONCE ONE Administration Ondansetron HCl 4 mg 03/04/24 14:33 03/04/24 15:20 Ondansetron 2 Mg/Ml Inj IVP 03/04/24 14:34 Not Given ONCE ONE <Prabha Michaud MD - Last Filed: 03/04/24 19:23> Medical Decision Making MDM Narrative Medical decision making narrative: Patient is a 78-year-old female presenting for multiple complaints. The differential diagnosis of vertigo is broad and includes common etiologies such as menieres disease, labyrinthitis, benign positional vertigo, otitis media, etc. More serious etiologies considered include central etiologies such as tumor, intracerebral bleed, dissection, ischemic cerebral vascular accident. With the associated hearing issues Meniere's disease is high on my list. Will do a CT scan for better evaluation. Pending CTA and MRI pending rest of workup. The differential diagnosis of shortness of breath is broad and includes common etiologies such as COPD, asthma, pneumonia, viral syndrome, etc. More serious etiologies considered include PE, CHF, coronary artery disease, pneumothorax, aortic dissection, aortic aneurysm. With a murmur have more concern for CHF and a BNP will be ordered. There was also concern for a PE considering her history so I will order a D-dimer. Will also order EKG, troponin. CBC, CMP, lipase, magnesium, urinalysis, COVID/flu/RSV all also ordered. She is having some nausea so I did order some abdominal labs but she is not having any other pain in the nausea seems associated with the dizziness so I do not believe imaging is necessary. Head CT reviewed myself the radiologist shows no acute concerning abnormalities. CBC, CMP, lipase, urinalysis showed no concerning abnormalities. Viral swabs are negative. Troponin within normal limits. EKG shows no concerning findings. Her BNP is elevated at 1100 but she is not showing any other clear signs of CHF exacerbation at this time. I did consider doing CTA of her head and neck but yet she also has not of a D-dimer just needs a CTA of her chest. As we are unable to do this at the same time and she would need 2 rounds of contrast. I am hesitant to give a 78-year-old female 2 rounds of contrast at the same time. Instead I will do an MRI of the brain. It seems unlikely this would be a stroke causing the symptoms and CTA of the head and neck seems less beneficial at this time compared to the CTA of the chest as the shortness of breath is more acute. Of note we did do some orthostatic blood pressures and while her blood pressure did not change she did become more tachycardic when she stood. She does states she had some symptoms that resolved after short amount of time standing. Some this may it due to dehydration I will give her a 500 bag of fluids Patient's CT and MRI are pending at this time and patient will be signed out to my colleague. Expected disposition happened my shift is to be discharged home <Henrik Lyons DO - Last Filed: 03/04/24 17:31> Patient is a 78-year-old female presenting for multiple complaints. The differential diagnosis of vertigo is broad and includes common etiologies such as menieres disease, labyrinthitis, benign positional vertigo, otitis media, etc. More serious etiologies considered include central etiologies such as tumor, intracerebral bleed, dissection, ischemic cerebral vascular accident. With the associated hearing issues Meniere's disease is high on my list. Will do a CT scan for better evaluation. Pending CTA and MRI pending rest of workup. The differential diagnosis of shortness of breath is broad and includes common etiologies such as COPD, asthma, pneumonia, viral syndrome, etc. More serious etiologies considered include PE, CHF, coronary artery disease, pneumothorax, aortic dissection, aortic aneurysm. With a murmur have more concern for CHF and a BNP will be ordered. There was also concern for a PE considering her history so I will order a D-dimer. Will also order EKG, troponin. CBC, CMP, lipase, magnesium, urinalysis, COVID/flu/RSV all also ordered. She is having some nausea so I did order some abdominal labs but she is not having any other pain in the nausea seems associated with the dizziness so I do not believe imaging is necessary. Head CT reviewed myself the radiologist shows no acute concerning abnormalities. CBC, CMP, lipase, urinalysis showed no concerning abnormalities. Viral swabs are negative. Troponin within normal limits. EKG shows no concerning findings. Her BNP is elevated at 1100 but she is not showing any other clear signs of CHF exacerbation at this time. I did consider doing CTA of her head and neck but yet she also has not of a D-dimer just needs a CTA of her chest. As we are unable to do this at the same time and she would need 2 rounds of contrast. I am hesitant to give a 78-year-old female 2 rounds of contrast at the same time. Instead I will do an MRI of the brain. It seems unlikely this would be a stroke causing the symptoms and CTA of the head and neck seems less beneficial at this time compared to the CTA of the chest as the shortness of breath is more acute. Of note we did do some orthostatic blood pressures and while her blood pressure did not change she did become more tachycardic when she stood. She does states she had some symptoms that resolved after short amount of time standing. Some this may it due to dehydration I will give her a 500 bag of fluids Patient's CT and MRI are pending at this time and patient will be signed out to my colleague. Expected disposition happened my shift is to be discharged home Gail was signed out into my care by Dr. Lyons. Patient had CT pending and it was negative for PE. However, it did show mild to moderate pulmonary edema. There was also noted to be sequela a of chronic aspiration. Did not appear to be any active infection. 1. CHF flare-proBNP elevated to 1100 but we do not have previous value for comparison. Patient is currently on Lasix 20 mg daily and hydrochlorothiazide 12.5 mg daily. She is given Lasix 40 mg here in the ED. will not change her medications at this time she has a follow-up with Cardiology on March 07. She and her caregiver do not wish to wait and I did state that likely potential need to go to the bathroom as soon as she gets home. She will probably need assistance for this. I have asked that she insure the use of a walker or cane in her home. According to [facility] notes patient does have severe mitral stenosis and is a [facility]. I do offer patient overnight stay for diuresis and she declines. 2. Dizziness-no evidence of stroke. Patient notes that her symptoms have resolved since she received meclizine [address] Lyons wish, patient is attentive prescription for meclizine 12.5 mg p.o. t.i.d. p.r.n. 20. With no refills to [facility]. 3. Disposition-home with her at [facility]. Return as needed for worsening symptoms. They feel safe going home at this time. <Prabha Michaud MD - Last Filed: 03/04/24 19:23> Medical Records Medical records reviewed: Yes I reviewed the patient's medical records <Prabha Michaud MD - Last Filed: 03/04/24 19:23> Lab Data Lab results reviewed: Yes I reviewed the patient's lab results <Prabha Michaud MD - Last Filed: 03/04/24 19:23> Labs: Lab Results 03/04/24 03/04/24 Range/Units 14:55 15:17 WBC 6.38 (4.50-11.00) K/uL RBC 3.81 L (4.00-5.20) m/uL Hgb 11.6 L (12.0-16.0) gm/dL Hct 35.7 (33.0-51.0) % MCV 94 (80-100) fL MCH 30 (26-34) pg MCHC 33 (32-36) gm/dL RDW Coeff of [place] 13.7 (11.5-15.5) % Plt Count 331 (140-440) K/uL Neut % (Auto) 42.8 (42.0-72.0) % Lymph % (Auto) 40.3 (20-44) % Wirt % (Auto) 14.9 H (0.0-11.0) % Eos % (Auto) 1.3 (0.0-7.0) % Baso % (Auto) 0.5 (0.0-3.0) % Neut # (Auto) 2.74 (1.7-7.0) K/uL Lymph # (Auto) 2.57 (0.90-2.90) K/uL Wirt # (Auto) 1.00 H (0.00-0.90) K/UL Eos # (Auto) 0.08 (0.00-0.50) K/uL Baso # (Auto) 0.03 (0.00-0.30) K/uL Abs Immat Gran (auto) 0.01 (0.00-0.30) K/uL Imm/Tot Granulo (auto) 0.2 % D-Dimer Quant (PE/DVT) 1.22 H (0.00-0.50) ug/ml Sodium 133 L (135-149) mmol/L Potassium 4.3 (3.6-5.1) mmol/L Chloride 96 (96-114) mmol/L Carbon Dioxide 29 (20-32) mmol/L Anion Gap 8 (7-15) mEq/L BUN 19 (7-30) mg/dL Creatinine 0.9 (0.5-1.5) mg/dL Estimated Creat Clear 38.97 Estimated GFR 66 ml/min Glucose 86 (60-115) mg/dL Calcium 9.0 (8.4-10.6) mg/dL Magnesium 2.0 (1.5-2.6) mg/dL Total Bilirubin 0.3 (0.1-1.5) mg/dL AST 39 H (12-35) U/L ALT 21 (4-35) U/L Alkaline Phosphatase 118 (40-150) U/L Troponin I < 0.01 L (0.01-0.04) ng/mL NT-Pro-B Natriuret Pep 1100 pg/mL Total Protein 7.3 (6.0-8.3) g/dL Albumin 4.0 (3.3-5.0) g/dL Lipase 136 (23-300) U/L Urine Color Yellow (Yellow) Urine Appearance Clear (Clear) Urine pH 6.0 (5.0-8.5) Ur Specific [place] 1.020 (1.000-1.030) Urine Protein Negative (Negative) Urine Glucose (UA) Negative (Negative) Urine Ketones Negative (Negative) Urine Blood Negative (Negative) Urine Nitrite Negative (Negative) Urine Bilirubin Negative (Negative) Urine Urobilinogen 0.2 (0.2-1.0) Ur Leukocyte Esterase 1+ A (Negative) Urine RBC 2-5 A (0-2) Urine WBC 2-5 (0-5) Ur Squamous Epith Cells None (None-Few) Amorphous Sediment Few A (None) Urine Bacteria None (None) SARS-CoV-2 (PCR) Negative SARS-CoV-2 (Negative) Influenza Type A (PCR) Negative PCR FLU A (Negative) Influenza Type B (PCR) Negative PCR FLU B (Negative) RSV (PCR) Negative PCR RSV (Negative) <Henrik Lyons, DO - Last Filed: 03/04/24 17:31> Lab Results 03/04/24 03/04/24 Range/Units 14:55 15:17 WBC 6.38 (4.50-11.00) K/uL RBC 3.81 L (4.00-5.20) m/uL Hgb 11.6 L (12.0-16.0) gm/dL Hct 35.7 (33.0-51.0) % MCV 94 (80-100) fL MCH 30 (26-34) pg MCHC 33 (32-36) gm/dL RDW Coeff of [place] 13.7 (11.5-15.5) % Plt Count 331 (140-440) K/uL Neut % (Auto) 42.8 (42.0-72.0) % Lymph % (Auto) 40.3 (20-44) % Wirt % (Auto) 14.9 H (0.0-11.0) % Eos % (Auto) 1.3 (0.0-7.0) % Baso % (Auto) 0.5 (0.0-3.0) % Neut # (Auto) 2.74 (1.7-7.0) K/uL Lymph # (Auto) 2.57 (0.90-2.90) K/uL Wirt # (Auto) 1.00 H (0.00-0.90) K/UL Eos # (Auto) 0.08 (0.00-0.50) K/uL Baso # (Auto) 0.03 (0.00-0.30) K/uL Abs Immat Gran (auto) 0.01 (0.00-0.30) K/uL Imm/Tot Granulo (auto) 0.2 % D-Dimer Quant (PE/DVT) 1.22 H (0.00-0.50) ug/ml Sodium 133 L (135-149) mmol/L Potassium 4.3 (3.6-5.1) mmol/L Chloride 96 (96-114) mmol/L Carbon Dioxide 29 (20-32) mmol/L Anion Gap 8 (7-15) mEq/L BUN 19 (7-30) mg/dL Creatinine 0.9 (0.5-1.5) mg/dL Estimated Creat Clear 38.97 Estimated GFR 66 ml/min Glucose 86 (60-115) mg/dL Calcium 9.0 (8.4-10.6) mg/dL Magnesium 2.0 (1.5-2.6) mg/dL Total Bilirubin 0.3 (0.1-1.5) mg/dL AST 39 H (12-35) U/L ALT 21 (4-35) U/L Alkaline Phosphatase 118 (40-150) U/L Troponin I < 0.01 L (0.01-0.04) ng/mL NT-Pro-B Natriuret Pep 1100 pg/mL Total Protein 7.3 (6.0-8.3) g/dL Albumin 4.0 (3.3-5.0) g/dL Lipase 136 (23-300) U/L Urine Color Yellow (Yellow) Urine Appearance Clear (Clear) Urine pH 6.0 (5.0-8.5) Ur Specific [place] 1.020 (1.000-1.030) Urine Protein Negative (Negative) Urine Glucose (UA) Negative (Negative) Urine Ketones Negative (Negative) Urine Blood Negative (Negative) Urine Nitrite Negative (Negative) Urine Bilirubin Negative (Negative) Urine Urobilinogen 0.2 (0.2-1.0) Ur Leukocyte Esterase 1+ A (Negative) Urine RBC 2-5 A (0-2) Urine WBC 2-5 (0-5) Ur Squamous Epith Cells None (None-Few) Amorphous Sediment Few A (None) Urine Bacteria None (None) SARS-CoV-2 (PCR) Negative SARS-CoV-2 (Negative) Influenza Type A (PCR) Negative PCR FLU A (Negative) Influenza Type B (PCR) Negative PCR FLU B (Negative) RSV (PCR) Negative PCR RSV (Negative) <Prabha Michaud MD - Last Filed: 03/04/24 19:23> Imaging Data CT scan - head: Attestation: I have reviewed the pertinent imaging results. <Henrik Lyons DO - Last Filed: 03/04/24 17:31> Radiologist's impression: No acute intracranial noncontrast CT findings. Please note that all CT scans at this facility use dose modulation, iterative reconstruction, and/or weight-based dosing when appropriate to reduce radiation dose to as low as reasonably achievable. Dictated by Stefano Olivier MD @ 03/04/2024 3:54:14 PM <Henrik Lyons DO - Last Filed: 03/04/24 17:31> CTA chest: Attestation: I have reviewed the pertinent imaging results. <Prabha Michaud MD - Last Filed: 03/04/24 19:23> Radiologist's impression: Medical devices: None. Thyroid: Normal. Lymph nodes: No supraclavicular, axillary, mediastinal, or hilar lymphadenopathy. Calcified mediastinal lymph nodes. Other mediastinal structures: Small hiatal hernia. Lung parenchyma: Moderate patchy bilateral ground-glass airspace opacities. Scattered calcified granulomata. Mild interlobular septal thickening. Airways: Moderate bronchial wall thickening. Scattered areas of ymnd-xb-xkyokxws bronchiectasis. Pleura: No significant abnormality. Chest wall: No significant abnormality. Upper abdomen: Status post cholecystectomy. Postsurgical changes are seen from likely gastric bypass. Rectus diastasis. Musculoskeletal: Moderate degenerative changes of the visualized spine. Uoip-ph-oldjapmo S shaped curvature of the visualized spine. Impression: 1. No acute pulmonary embolism. 2. Moderate patchy bilateral ground-glass airspace opacities with mild interlobular septal thickening are favored to represent ndow-kk-ujahkgkr pulmonary edema. 3. Scattered areas of gndv-ng-oopgcmwe bronchiectasis may represent sequela of chronic aspiration or infection/inflammation. <Prabha Michaud MD - Last Filed: 03/04/24 19:23> MR Brain: Attestation: I have reviewed the pertinent imaging results. <Prabha Michaud MD - Last Filed: 03/04/24 19:23> Radiologist's impression: 1. No radiographic evidence of acute intracranial abnormalities. 2. Moderate supratentorial and infratentorial white matter changes are non-specific but most likely related to small vessel ischemic disease. Mild cerebral volume loss. Dictated by Hill Berger MD @ 03/04/2024 5:12:10 PM <Henrik Lyons DO - Last Filed: 03/04/24 17:31> ECG Data Attestation: I personally reviewed and interpreted this ECG as follows: <Henrik Lyons DO - Last Filed: 03/04/24 17:31> Prior ECG tracings: available for review <Henrik Lyons DO - Last Filed: 03/04/24 17:31> Interpretation: Normal sinus rhythm with a rate of 68 beats per minute, normal intervals, normal axis, no ST or T-wave abnormalities. Appears similar previous EKGs on file. <Henrik Lyons DO - Last Filed: 03/04/24 17:31> Discharge Plan Discharge Clinical Impression: Dizziness, Congestive heart failure Hearing loss Qualifiers: Hearing loss type: unspecified Laterality: bilateral Qualified Code(s): H91.93 - Unspecified hearing loss, bilateral <Henrik Lyons DO - Last Filed: 03/04/24 17:31> Instructions: Hearing Loss (ED), Dizziness (ED) <Henrik Lyons DO - Last Filed: 03/04/24 17:31> Additional Instructions: Make sure to follow-up with the education consultant tomorrow. They may have you follow-up with ENT after. Also make sure to keep your appointment with cardiology. Return for new or worsening symptoms. Tonight to we gave you a dose of a medicine called Lasix would should help bring some fluid off of your lungs and make breathing easier. Please talk to your plater [employer] to see if they would like to increase your dose of hydrochlorothiazide also known as hydrochlorothiazide. It is also a diuretic like Lasix. Meclizine is a medication that you received tonight for dizziness. I will send a prescription to your pharmacy for this medication. Take if you need to for dizziness. Please return to the emergency room for worsening symptoms. Please be sure to move slowly throughout your apartment as I do not want you to fall. If you are dizzy, please use a walker if you must be up. For your [employer] appointment on : CT of the chest showed increased lung markings consistent with uavv-lq-dbthnffr pulmonary edema. EKG did not show any acute changes. Potassium was 4.3 and creatinine 0.9. ProBNP was 1100 with no previous values available for comparison. Patient received Lasix 40 mg in the ED. I did not change current dosing of home Lasix or hydrochlorothiazide. <Henrik Lyons, DO - Last Filed: 03/04/24 17:31> Prescriptions: New meclizine 12.5 mg tablet 12.5 mg PO TID PRNQty: 20 0RF No Action metoprolol succinate 50 mg tablet extended release 24 hr 50 mg PO QDAY bupropion HCl 100 mg tablet 100 mg PO BID Qty: 180 3RF gabapentin 600 mg tablet 900 mg PO TID Qty: 405 3RF hydrocortisone 2.5 % cream 1 applic topical BID PRN (Reason: rash) Qty: 28 3RF levothyroxine 137 mcg tablet 137 mcg PO DAILY Qty: 90 3RF Patient Comments: pt states the pill wasn't in her pill box to take tramadol 50 mg tablet 50 mg PO QAM Qty: 90 1RF hydrochlorothiazide 12.5 mg tablet 12.5 mg PO QAM hydrocodone-acetaminophen 10-325 mg/15 mL(15 mL) solution 15 ml PO Q4-6H PRN lactase 3,000 unit tablet 3,000 unit PO .4xd Rx Instructions: administer with meals and/or snacks nystatin 100,000 unit/gram powder 1 applic topical TID Qty: 15 1RF Rx Instructions: apply to groin folds three times daily as needed. acetaminophen 500 mg tablet 1,000 mg PO 3XD cholecalciferol (vitamin D3) 50 mcg (2,000 unit) capsule 50 mcg PO DAILY@1200 atorvastatin 20 mg tablet 20 mg PO HS furosemide 20 mg tablet 20 mg PO MOFR Rx Instructions: MON AND FRI cetirizine 5 mg tablet 10 mg PO Q48H Rx Instructions: EVERY OTHER DAY AT HS losartan 50 mg tablet 100 mg PO HS Centrum Adult 50 Plus 80 mcg tablet,chewable 2 tab PO DAILY@1200 venlafaxine 75 mg tablet 75 mg PO TID cyanocobalamin (vitamin B-12) 1,000 mcg tablet 2,000 mcg PO DAILY@1200 melatonin 3 mg tablet 4.5 mg PO HS omeprazole 40 mg capsule,delayed release(DR/EC) 40 mg PO DAILY docusate sodium 100 mg capsule 100 mg PO HS fluticasone propionate 50 mcg/actuation spray,suspension 2 spray INTRANASAL DAILY PRN diclofenac sodium 1 % gel 4 g topical QID PRN (Reason: pain) <Henrik Lyons DO - Last Filed: 03/04/24 17:31> Follow Up/Referrals: Prabha Nice PA-C [Primary Care Provider] - <Henrik Lyons DO - Last Filed: 03/04/24 17:31> Stand [facility] <Henrik Lyons DO - Last Filed: 03/04/24 17:31>
--- OUTSIDE RECORDS SUMMARY | 2024-03-04 14:43 | XMS_ITS | Continuity of Care Document ---
Author Name [facility] Organization [facility] Care Team Providers Care Joiners Supervisor Name Role Phone [facility] Unavailable Unavailable Medications Combined list of outpatient [...] ORAL, APOTEX ORION, 1000 ea. BOTTLE Active [id number] 4 2023 14 Pharmac y Data Transac tion Service Facilit y ATORVASTATI N CALCIUM (atorvastat in calcium), 20 MG, TABLET, ORAL, [employer], 500 ea. BOTTLE Active [id number] 2023 30 Pharmac y Data Transac tion Service Facilit y ATORVASTATI N CALCIUM (atorvastat in calcium), 20 MG, TABLET, ORAL, [employer], 500 ea. BOTTLE Active [id number] 4 2023 30 Pharmac y Data Transac tion Service Facilit y atorvastati n calcium ([employer]) 1000 TABLET in 1 BOTTLE Active [id number] 2023 30 Pharmac y Data Transac tion Service Facilit y atorvastati n calcium ([employer]) 1000 TABLET in 1 BOTTLE Active [id number] 4 2023 30 Pharmac y Data Transac tion Service Facilit y BUPROPION HCL (bupropion HCl), 100 MG, TABLET, ORAL, [employer] [facility], 100 ea. BOTTLE Active [id number] 4 2023 28 Pharmac y Data Transac tion Service Facilit y BUPROPION HCL (BUPROPION HCL), 100MG, TABLET, ORAL, APOTEX ORION, 100 ea. BOTTLE Active [id number] 4 2023 90 Pharmac y Data Transac tion Service Facilit y CETIRIZINE HCL (cetirizine HCl), 10 MG, TABLET, ORAL, [employer], 300 ea. BOTTLE Active [id number] 2023 30 Pharmac y Data Transac tion Service Facilit y CETIRIZINE HCL (CETIRIZINE HCL), 5MG, TABLET, ORAL, MYLAN, 100 ea. BOTTLE Cancele d [id number] : 2023 0 Pharmac y Data Transac tion Service Facilit y CETIRIZINE HCL (CETIRIZINE HCL), 5MG, TABLET, ORAL, MYLAN, 100 ea. BOTTLE Active [id number] 2023 15 Pharmac y Data Transac tion Service Facilit y CETIRIZINE HCL (CETIRIZINE HCL), 5MG, TABLET, ORAL, MYLAN, 100 ea. BOTTLE Active [id number] 2023 15 Pharmac y Data Transac tion Service Facilit y CETIRIZINE HCL (CETIRIZINE HCL), 5MG, TABLET, ORAL, MYLAN, 100 ea. BOTTLE Active [id number] 2023 15 Pharmac y Data Transac tion Service Facilit y FLUCONAZOLE (fluconazol e), 100 MG, TABLET, ORAL, [employer], 100 ea. BOTTLE Active [id number] 2023 14 Pharmac y Data Transac tion Service Facilit y FUROSEMIDE (FUROSEMIDE ), 20MG, TABLET, ORAL, [facility] 1000 ea. BOTTLE Active [id number] 2023 8 Pharmac y Data Transac tion Service Facilit y FUROSEMIDE (FUROSEMIDE ), 20MG, TABLET, ORAL, [facility] 1000 ea. BOTTLE Active [id number] 2023 8 Pharmac y Data Transac tion Service Facilit y FUROSEMIDE (FUROSEMIDE ), 20MG, TABLET, ORAL, [facility] 1000 ea. BOTTLE Active [id number] 4 2023 8 Pharmac y Data Transac tion Service Facilit y GABAPENTIN (gabapentin ), 600 MG, TABLET, ORAL, [facility], 500 ea. BOTTLE Active [id number] 2023 120 Pharmac y Data Transac tion Service Facilit y GABAPENTIN (GABAPENTIN ), 600 MG, TABLET, ORAL, [employer], 500 ea. BOTTLE Active [id number] 4 2023 120 Pharmac y Data Transac tion Service Facilit y GABAPENTIN (gabapentin ), 600 MG, TABLET, ORAL, [employer], 500 ea. BOTTLE Active [id number] 2023 63 Pharmac y Data Transac tion Service Facilit y GABAPENTIN (gabapentin ), 600 MG, TABLET, ORAL, [employer], 500 ea. BOTTLE Active [id number] 2023 135 Pharmac y Data Transac tion Service Facilit y GABAPENTIN (gabapentin ), 600 MG, TABLET, ORAL, [employer] [facility], 500 ea. BOTTLE Active [id number] 2023 135 Pharmac y Data Transac tion Service Facilit y HYDROCHLORO THIAZIDE (hydrochlor othiazide), 12.5 MG, CAPSULE, ORAL, [employer] [facility], 500 ea. BOTTLE Active [id number] 2023 14 Pharmac y Data Transac tion Service Facilit y HYDROCHLORO THIAZIDE (HYDROCHLOR OTHIAZIDE), 12.5 MG, TABLET, ORAL, [facility], 1000 ea. BOTTLE Active [id number] 2023 30 Pharmac y Data Transac tion Service Facilit y HYDROCHLORO THIAZIDE (HYDROCHLOR OTHIAZIDE), 12.5 MG, TABLET, ORAL, [facility], 1000 ea. BOTTLE Active [id number] 2023 30 Pharmac y Data Transac tion Service Facilit y HYDROCHLORO THIAZIDE (HYDROCHLOR OTHIAZIDE), 12.5 MG, TABLET, ORAL, [facility], 1000 ea. BOTTLE Active [id number] 2023 30 Pharmac y Data Transac tion Service Facilit y HYDROCHLORO THIAZIDE (HYDROCHLOR OTHIAZIDE), 12.5 MG, TABLET, ORAL, [facility], 1000 ea. BOTTLE Active [id number] 2023 30 Pharmac y Data Transac tion Service Facilit y LEVOTHYROXI NE SODIUM (levothyrox ine sodium), 137 MCG, TABLET, ORAL, [facility], 1000 ea. BOTTLE Active [id number] 2023 30 Pharmac y Data Transac tion Service Facilit y LEVOTHYROXI NE SODIUM (levothyrox ine sodium), 137 MCG, TABLET, ORAL, [facility], 1000 ea. BOTTLE Active [id number] 2023 30 Pharmac y Data Transac tion Service Facilit y LEVOTHYROXI NE SODIUM (levothyrox ine sodium), 137 MCG, TABLET, ORAL, [facility], 1000 ea. BOTTLE Active [id number] 2023 30 Pharmac y Data Transac tion Service Facilit y LEVOTHYROXI NE SODIUM (levothyrox ine sodium), 137 MCG, TABLET, ORAL, [facility], 1000 ea. BOTTLE Active [id number] 2023 30 Pharmac y Data Transac tion Service Facilit y LEVOTHYROXI NE SODIUM (levothyrox ine sodium), 150 MCG, TABLET, ORAL, [facility], 1000 ea. BOTTLE Active [id number] 2023 30 Pharmac y Data Transac tion Service Facilit y LIDOCAINE-H YDROCORTISO NE (HYDROCORTI SONE AC/LIDOCAIN E), 0.5 %-3 %, CREAM (G), TOPICAL, [facility], 28.35 g TUBE Cancele d [id number] : 2023 0 Pharmac y Data Transac tion Service Facilit y LOSARTAN POTASSIUM (LOSARTAN POTASSIUM), 100 MG, TABLET, ORAL, [employer] [facility], 1000 ea. BOTTLE Active [id number] 2023 14 Pharmac y Data Transac tion Service Facilit y LOSARTAN POTASSIUM (LOSARTAN POTASSIUM), 100 MG, TABLET, ORAL, [facility], 1000 ea. BOTTLE Active [id number] 2023 30 Pharmac y Data Transac tion Service Facilit y LOSARTAN POTASSIUM (LOSARTAN POTASSIUM), 100 MG, TABLET, ORAL, [facility], 1000 ea. BOTTLE Active [id number] 2023 30 Pharmac y Data Transac tion Service Facilit y LOSARTAN POTASSIUM (LOSARTAN POTASSIUM), 100 MG, TABLET, ORAL, [facility], 1000 ea. BOTTLE Active [id number] 2023 30 Pharmac y Data Transac tion Service Facilit y LOSARTAN POTASSIUM (LOSARTAN POTASSIUM), 100 MG, TABLET, ORAL, [facility], 1000 ea. BOTTLE Active [id number] 2023 30 Pharmac y Data Transac tion Service Facilit y LOSARTAN POTASSIUM (LOSARTAN POTASSIUM), 100 MG, TABLET, ORAL, [facility], 1000 ea. BOTTLE Active [id number] 2023 30 Pharmac y Data Transac tion Service Facilit y LOSARTAN POTASSIUM (LOSARTAN POTASSIUM), 50 MG, TABLET, ORAL, [facility], 1000 ea. BOTTLE Active [id number] 2023 30 Pharmac y Data Transac tion Service Facilit y MUPIROCIN (MUPIROCIN) , 2%, OINT.(GM), TOPICAL, [employer] 22 g TUBE Active [id number] 2023 22 Pharmac y Data Transac tion Service Facilit y OMEPRAZOLE (omeprazole ), 40 MG, CAPSULE , ORAL, [employer]ARMA, 1000 ea. BOTTLE Active [id number] 2023 30 Pharmac y Data Transac tion Service Facilit y OMEPRAZOLE (omeprazole ), 40 MG, CAPSULE , ORAL, [employer]ARMA, 1000 ea. BOTTLE Active [id number] 2023 14 Pharmac y Data Transac tion Service Facilit y OMEPRAZOLE (omeprazole ), 40 MG, CAPSULE , ORAL, [employer]ARMA, 1000 ea. BOTTLE Active [id number] 2023 30 Pharmac y Data Transac tion Service Facilit y OMEPRAZOLE (omeprazole ), 40 MG, CAPSULE , ORAL, [employer] PHARMA, 1000 ea. BOTTLE Active [id number] 2023 30 Pharmac y Data Transac tion Service Facilit y OMEPRAZOLE (omeprazole ), 40 MG, CAPSULE DR, ORAL, [employer], 1000 ea. BOTTLE Active [id number] 2023 30 Pharmac y Data Transac tion Service Facilit y OXYBUTYNIN CHLORIDE ER (OXYBUTYNIN CHLORIDE), 5 MG, TAB ER 24, ORAL, [employer], 500 ea. BOTTLE Active [id number] 2023 14 Pharmac y Data Transac tion Service Facilit y TRAMADOL HCL (tramadol HCl), 50 MG, TABLET, ORAL, AMNEAL PHARMACE, 500 ea. BOTTLE Active [id number] 2023 30 Pharmac y Data Transac tion Service Facilit y TRAMADOL HCL (tramadol HCl), 50 MG, TABLET, ORAL, AM[employer]AL [employer]ARMACE, 500 ea. BOTTLE Active [id number] 2023 30 Pharmac y Data Transac tion Service Facilit y VENLAFAXINE HCL (venlafaxin e HCl), 75 MG, TABLET, ORAL, [employer], 100 ea. BOTTLE Active [id number] 2023 90 Pharmac y Data Transac tion Service Facilit y VENLAFAXINE HCL (venlafaxin e HCl), 75 MG, TABLET, ORAL, [employer], 100 ea. BOTTLE Active [id number] 2023 90 Pharmac y Data Transac tion Service Facilit y VENLAFAXINE HCL (venlafaxin e HCl), 75 MG, TABLET, ORAL, [employer], 100 ea. BOTTLE Active [id number] 2023 90 Pharmac y Data Transac tion Service Facilit y VENLAFAXINE HCL (venlafaxin e HCl), 75 MG, TABLET, ORAL, [employer], 100 ea. BOTTLE Active [id number] 2023 90 Pharmac y Data Transac tion Service Facilit y VENLAFAXINE HCL (venlafaxin e HCl), 75 MG, TABLET, ORAL, [employer], 100 ea. BOTTLE Active [id number] 2023 90 Pharmac y Data Transac tion Service Facilit y VENLAFAXINE HCL (VENLAFAXIN E HCL), 75 MG, TABLET, ORAL, [employer], 100 ea. BOTTLE Active [id number] 2023 42 Pharmac y Data Transac tion Service Facilit y Social History Combined list of available smoking, tobacco, and other social history from Department of Defense and Veterans Affairs facilities. Social History Type Response Date Comment [facility] e This section is an empty social history section. [employer]
--- OUTSIDE RECORDS SUMMARY | 2024-03-04 14:43 | XMS_ITS | Clinical Summary ---
Author Organization [facility] Address [place], [place] [address] Care Team Providers Care Plastics Fabricator And Assembler Name Role Phone Prabah Nice Primary Care Provider [phone] Allergies Active Allergy Reactions Criticality Noted Date Comments Blood-Group Specific Substance Other - Describe In Comment Field 02/13/2024 Patient has an anti-Rose Mary antibody. Blood products may be delayed. Draw patient 24 hours prior to transfusion. For [employer] testing, draw one red top and two purple top tubes for all Type and Screen orders. Droperidol Rash 02/22/2021 Polyglactin 370 Rash 04/29/2011 Vicryl sutures--rash, itching Metoclopramide Rash 02/22/2021 Sulfa (Sulfonamide Antibiotics) Rash 02/22/2021 Sulfamethoxazole-Trimetho prim Rash Medium 05/23/2011 Sutures Rash 04/29/2011 Vicryl sutures--rash, itching Medications Medication Sig Dispensed Refills Start Date End Date Status lactase (LACTAID) 3,000 unit tabletIndications:La ctose intolerance Take 1 Tablet (3,000 units) by mouth 4 times daily if needed for Lactose Intolerance. 100 Tablet 2 11/07/2023 Active Lidocaine-Hydrocorti sone Lamont 3-0.5 % topical creamIndications:Per ipheral sensory neuropathy Apply topically to affected area(s) at bedtime if needed (nerupathy in feet). 28.3 g 2 11/07/2023 Active metoprolol succinate (Toprol XL) 50 mg sustained-release tabletIndications:No nrheumatic mitral valve stenosis Take 1 Tablet (50 mg) by mouth once daily. 90 Tablet 3 11/07/2023 Active diclofenac topical (VOLTAREN) 1 % gelIndications:Chron ic pain of both knees Apply 4 g topically to affected area(s) four times daily. 100 g 9 11/17/2023 Active fluticasone (50 mcg per actuation) nasal solution (FLONASE)Indications :Non-seasonal allergic rhinitis due to pollen Inhale 2 Sprays to both nostrils once daily. 48 g 3 11/17/2023 Active gabapentin (NEURONTIN) 600 mg tabletIndications:Ot her chronic pain Take 1.5 Tablets (900 mg) by mouth three times daily. 405 Tablet 2 11/17/2023 Active buPROPion (WELLBUTRIN) 100 mg tabletIndications:MD Baig (major depressive disorder), recurrent episode, moderate (HC) Take 1 Tablet (100 mg) by mouth three times daily. Based on updated ISMP guidelines, DO NOT crush or chew. 270 Tablet 2 11/28/2023 Active cetirizine (ZYRTEC) 10 mg tabletIndications:Se asonal allergic rhinitis due to pollen Take 1 Tablet (10 mg) by mouth once daily. 90 Tablet 3 11/28/2023 Active atorvastatin (LIPITOR) 20 mg tabletIndications:Mi xed hyperlipidemia Take 1 Tablet (20 mg) by mouth at bedtime. 90 Tablet 2 12/13/2023 Active omeprazole (PRILOSEC) 40 mg Delayed-Release capsuleIndications:C hronic GERD Take 1 Capsule (40 mg) by mouth once daily before a meal. 90 Capsule 2 12/13/2023 Active oxybutynin XL (DITROPAN XL) 5 mg CR tabletIndications:OA B (overactive bladder) Take 1 Tablet (5 mg) by mouth once daily. 90 Tablet 2 12/13/2023 Active venlafaxine (EFFEXOR) 75 mg tabletIndications:MD Baig (major depressive disorder), recurrent episode, moderate (HC) Take 1 Tablet (75 mg) by mouth three times daily. 270 Tablet 1 12/13/2023 Active losartan (COZAAR) 100 mg tabletIndications:Pr imary hypertension Take 1 Tablet (100 mg) by mouth once daily. 90 Tablet 1 12/13/2023 Active nystatin powder (MYCOSTATIN) powder Apply topically to affected area(s) each time if needed. 10/31/2023 Active albuterol HFA (PRO-AIR; VENTOLIN; PROVENTIL) 90 mcg/actuation inhalerIndications:N on-seasonal allergic rhinitis due to pollen Inhale 1-2 Puffs by mouth every 4 hours if needed for Shortness Of Breath or Wheezing. 12/14/2023 Active melatonin 3 mg tabletIndications:In somnia, idiopathic TAKE 1 & 1/2 TABLETS (4.5 MG) BY MOUTH EVERY NIGHT AT BEDTIME 135 Tablet 3 12/25/2023 Active docusate (COLACE) 100 mg capsuleIndications:C hronic constipation TAKE 1 CAPSULE BY MOUTH DAILY 90 Capsule 3 12/25/2023 Active cholecalciferol, Vitamin D3, 2,000 unit tabletIndications:Vi tamin D deficiency TAKE 1 TABLET BY MOUTH DAILY 90 Tablet 3 12/25/2023 Active Multivitamin Cmb No.21-Iron-FA (Certavite-Antioxida nt) 18-400 mg-mcg tabIndications:Ileos enoch status (HC) TAKE 2 TABLETS BY MOUTH DAILY 180 Tablet 3 12/25/2023 Active acetaminophen (TYLENOL EXTRA STRGTH) 500 mg tabletIndications:Ch ronic low back pain, unspecified back pain laterality, unspecified whether sciatica present Take 2 Tablets (1,000 mg) by mouth three times daily. 180 Tablet 11 12/28/2023 Active multivitamin (MVI) tabletIndications:Il eostomy status (HC) Take 1 Tablet by mouth once daily. 90 Tablet 3 12/28/2023 Active cholecalciferol (Vitamin D-3) 2,000 unit capsuleIndications:V itamin D deficiency Take 1 Capsule (2,000 units) by mouth once daily. 90 Capsule 3 12/28/2023 Active hydroCHLOROthiazide 12.5 mg tabletIndications:Pr imary hypertension Take 1 Tablet (12.5 mg) by mouth once daily in the morning. 90 Tablet 2 12/28/2023 Active levothyroxine (SYNTHROID) 175 mcg tabletIndications:Hy pothyroidism (acquired) Take 1 Tablet (175 mcg) by mouth before breakfast. 90 Tablet 01/01/2024 Active hydrOXYzine HCL (ATARAX) 25 mg tabletIndications:Pa kacey attacks TAKE 1 TABLET BY MOUTH EVERY SIX HOURS NEEDED FOR ANXIETY 30 Tablet 2 01/19/2024 Active triamcinolone 0.1 % ointmentIndications: Contact dermatitis, unspecified contact dermatitis type, unspecified trigger Apply topically to affected area(s) two times daily. 80 g 02/13/2024 Active furosemide (LASIX) 20 mg tabletIndications:Pe ripheral edema TAKE ONE TABLET BY MOUTH EVERY MONDAY AND MONDAY 30 Tablet 1 02/20/2024 Active furosemide (LASIX) 20 mg tabletIndications:Pe ripheral edema TAKE ONE TABLET BY MOUTH EVERY MONDAY AND MONDAY 30 Tablet 2 11/06/2023 4 Discontinue d(Reorder (E-cancel not sent)) ammonium lactate 12 % lotionIndications:Ke ratosis pilaris Apply topically to affected area(s) two times daily. 225 g 3 12/14/2023 4 Discontinue d(*Med complete/Re gimen complete/Le edilma of care change) Active Problems Problem Noted Date Diagnosed Date [...] Fibromuscular dysplasia of renal artery 02/23/20 21 Overview (02/22/2021): diagnosed day 2010 HTN (hypertension) 02/22/2021 Hypothyroidism [...] Encounters Date Type Department Care Team Description 03/04/2024 Nurse Triage [facility] [address] [place] [address] Prabha Nice PA Dizziness 03/04/2024 Refill [facility] [address] [place] [address] Prabha Nice PA Refill Request (Hydroxyzine Hcl) 02/20/2024 Telephone [facility] [address] [place] [address] Prabha Nice PA Refill Request (Furosemide 20 mg tablet/) 02/13/2024 11:30 AM CDT Orders Only [facility] [address] [place] [address] Lab, [place] [facility] 02/13/2024 11:10 AM CDT Office Visit [address] [place] [address] Prabha Nice PA Rash 02/13/2024 Travel 02/08/2024 Telephone [facility] [address] [place] [address] Prabha Nice PA Medication Management (Can these be cheaper : cholecalciferol, Vitamin D3, 2,000 unit tablet/docusate (COLACE) 100 mg capsule/multivitamin (MVI) tablet/acetaminophen (TYLENOL EXTRA STRGTH) 500 mg tablet/melatonin 3 mg tablet/lotion for arthritis ) 02/07/2024 Telephone [place] [id number] [facility] [address] [place] [phone] Westley Rosenbaum MD Procedure Scheduling 02/07/2024 Nurse Triage [facility] [address] [place] [address] Prabha Nice PA Ear Pain/problem 02/06/2024 10:20 AM CDT Office Visit [facility] [address] [place] [address] Eddie Fatima MD Procedure (L4-5 ILESI) 02/01/2024 Nurse Triage [facility] [address] [place] [address] Prabha Nice PA Ear Pain/problem 01/30/[address] [place] [phone] Westley Rosenbaum MD Results (FELIPE) 01/22/2024 Telephone [facility] [address] [place] [address] Prabha Nice PA Refill Request (cyanocobalamin (Vitamin B-12) 1,000 mcg tablet) 01/16/2024 10:30 AM CDT - 01/16/2024 11:59 PM CDT Hospital Encounter [facility] [address] [address] Westley Rosenbaum MD LaberDavy Nonrheumatic mitral valve stenosis 01/16/2024 Travel 01/15/2024 Telephone [facility] [address] [facility] [address] [place] [phone] Westley Rosenbaum MD Error-please disregard 01/15/2024 Refill [facility] [address] [place] [address] Prabha Nice PA Refill Request (Hydroxyzine Hcl) 01/12/2024 10:20 AM CDT Office Visit [address] [address] Eddie Fatima MD Musculoskeletal Problem (Consult back pain) 01/12/2024 Travel 01/10/2024 10:00 AM CDT Orders Only [address] [address] Lab[facility] [place] [facility] 01/10/2024 Travel 01/01/2024 Telephone [facility] [address] [place] [address] Preeti Esposito MD Abnormal Lab Results 12/25/[address] [address] Prabha Nice PA Refill Request 12/22/2023 Orders Only [address] [address] Preeti Esposito MD 1 scan: (1-Ord) NFLD-EKG-8.15.24 12/18/2023 Refill [facility] [address] [place] [address] Prabha Nice PA Refill Request (Melatonin, Docusate, Cholecalciferol (Vitamin D3), Certavite-antioxidant) 12/14/2023 8:40 AM CDT Office Visit [address] [address] Preeti Esposito MD Pre-Op Exam (CATARACT SURGERY / DOS 12/19 & 01/02 / [facility] / DR. JANINE SOLOMON / FAX [phone]) 12/14/2023 Travel 12/11/2023 Refill [facility] [address] [place] [address] Prabha Nice PA Refill Request (Omeprazole, Oxybutynin Chloride ER, Venlafaxine HCL ,Atorvastatin, Losartan) 12/08/2023 Telephone [facility] [address] [facility] [address] [place] [address] Westley Rosenbaum MD Cardiovascular Diagnostic Testing 12/08/2023 Telephone [facility] [address] [place] [address] Prabha Nice PA Referral (CARDIOLOGY); Error-please disregard from Last 3 Months Immunizations Name Administration Dates Next Due COVID-19 VACCINE SPIKEVAX (M ODERNA 50MCG/0.5ML) 12YO+ PFS 02/13/2024,05/11/2023 COVID-19 vaccine (Pfizer-Bio NTech 30mcg/0.3mL) PF, MDV 02/22/2021 Influenza A (H1N1), Inactivated 05/19/2009 Influenza Virus, Unspecified 03/01/2011 Influenza, High-dose Inactivated 019,03/01/2018,01/19/2017,2015,03/20/2015,02/17/2015,02/10/2015,0 01/14/2014,01/14/2013 Influenza, High-dose Quadriv alent Inactivated 02/06/2023,02/17/2022,02/15/2021,2019,02/21/2019,03/01/2018,01/19/2017,1 ,03/20/2015,02/17/2015, 015,01/14/2014,01/14/2013 Influenza, IIV3 (Age 6-35 mos) 02/06/2012,2010,01/20/2010 Influenza, IIV3 (Age >=3 years) 01/30/20 09,03/05/2008,02/09/2007,2005,02/08/2005,02/10/2004,02/25/2002 Influenza, Inactivated IIV3 (Age 65+ Years) Preserv Free 02/13/2024 Influenza, split (incl. sherine fied surface antigen) [...] 3 11/28/2023 Social Connections Answer Date Recorded Do you often feel lonely or isolated from those around you? 0 08/15/2023 Financial Resource Strain Answer Date R ecorded Difficulty of Paying Living Expenses 2 08/15/2023 Difficulty of Paying Living Expenses 1 08/15/2023 Food Insecurity Answer Date Recorded Do you worry your food will run out before you are able to buy more? 1 08/15/2023 Transportation Needs Answer Date Record ed Does lack of transportation keep you from medica l appointments? 1 08/15/2023 Does lack of transportation keep you from work, meetings or getting things that you need? 1 08/15/2023 Housing Stability Answer Date Recorded What is your housing situation today? 1 08/15/2023 Sex and Gender Information Value Date Recorded Sex Assigned at Not on file Gender Identity Not on file Sexual Orientation Not on file Obstetrics History Last Filed Vital Signs Vital Sign Reading Time Taken Comments Blood Pressure 118/74 02/13/2024 11:25 AM CDT Pulse 64 02/13/2024 11:25 AM CDT Temperature 37.2 ??C (98.9 ??F) 01/12/2024 10:28 AM C DT Respiratory Rate 18 01/16/2024 1:10 PM CDT Oxygen Saturation 100% 02/13/2024 11:25 AM CDT Inhaled Oxygen Concentration - - Weight 91.2 kg (201 lb) 02/13/2024 11:25 AM CDT Height 158 cm (5' 2.21) 08/15/2023 11:16 AM CDT Body Mass Index 36.52 08/15/2023 11:16 AM CDT Plan of Treatment Upcoming Encounters Date Type Department Care Team (Late st Contact Info) Description 03/05/2024 11:00 AM WEDDING CAKE DESIGNER Office Visit [facility] [address] [place] [address] [facility] [address] [place] [address] 03/07/2024 10:50 AM WEDDING CAKE DESIGNER Orders Only [facility] [address] [facility] [address] [place] [phone] 03/07/2024 11:00 AM WEDDING CAKE DESIGNER Hospital Encounter [facility] [address] [place] [address] Mohit Olsen MD [address] [facility] [address] [place] [address] 03/07/2024 2:00 PM WEDDING CAKE DESIGNER Office Visit [facility] [address] [phone] Adina Lim 03/07/2024 3:00 PM WEDDING CAKE DESIGNER Office Visit [facility] [address] [facility] [address] [place] [phone] Ottoniel Babb MD [address] [facility] [address] [place] [address] Health Maintenance Due Date Last Done Comments Hepatitis C screening for age 18-79 1963 Zoster (shingles) series for age 50+ (2 of 3) 09/03/2013 07/09/2013 RSV vaccine for adults or (1 - 1-dose 75+ series) 2021 BMI (ht and wt on same day) [...] Completed 08/15/2023, 11/11/2014, 09/28/2009, Additional history exists COVID-19 vaccine series Completed 02/13/20, 05/11/2023, 03/09/2022, Additional history exists Influenza for age 65+ Completed 02/13/2024 , 02/06/2023, 02/17/2022, Additional history exists Procedures Procedure Name Priority Date/Time Associated Diagnosis Comments ANTIBODY IDENTIFICATION EACH PANEL Routine 02/13/2024 12:23 PM CDT ANTIBODY IDENTIFICATION LAB USE ONLY Routine 02/13/2024 12:18 PM CDT Mitral valve stenosis, unspecified etiology PATIENT ROSE MARY MONOCLONAL TEST LAB USE ONLY Routine 02/13/2024 12:18 PM CDT Mitral valve stenosis, unspecified etiology TYPE & SCREEN Routine 02/13/2024 12:18 PM CDT Mitral valve stenosis, unspecified etiology BASIC METABOLIC PANEL Routine 02/13/2024 12:18 PM CDT Mitral valve stenosis, unspecified etiology CBC W PLT NO DIFF Routine 02/13/2024 12: 18 PM CDT Mitral valve stenosis, unspecified etiology AMB EPIDURAL STEROID INJECTION Routine 02/06/2024 12:00 AM CDT Chronic lumbar radiculopathy Degenerative scoliosis in adult patient ECHO FELIPE [...] Routine 01/10/2024 9:58 AM CDT Hypothyroidism (acquired) SC READING EKG - NO CHARGE, COMP ONLY [...] Routine 12/14/2023 10:40 AM CDT Preoperative examination from Last 3 Months Results * ANTIBODY IDENTIFICATION EACH PANEL (02/13/2024 12:23 PM CDT) [facility] QUANTITY 1 [facility] BLOOD BANK PANEL KIRBY ID Panel Antib[facility] Mohit Olsen MD BLOOD BANK [facility] LAB BLOOD BANK [address] [place] [address], [place] [phone] * PATIENT ROSE MARY MONOCLONAL TEST LAB USE ONLY (02/13/2024 12:18 PM CDT) [facility] ROSE MARY ANTIGEN Testing Complete 02/13/2024 9:01 PM CDT [facility] LAB BLOOD BANK Blood BLOOD SPECIMEN / Unknown Non-Lab Venipuncture / Unknown 02/13/2024 12:18 PM CDT 02/13/2024 12:18 PM CDT Mohit Olsen MD BLOOD BANK [facility] LAB BLOOD BANK [address] [place] [address], [place] [phone] * (ABNORMAL) TYPE & SCREEN (02/13/2024 12:18 PM CDT) [facility] ABORH O Rh Positive 02/13/2024 8:39 PM CDT [facility] LAB BLOOD BANK ANTIBODY SCREEN Positive(A) Negative 02/13/2024 8:39 PM CDT [facility] BLOOD BANK SPECIMEN EXPIRATION DATE/TIME 02/16/24 23:59 02/13/2024 8:39 PM CDT [facility] BLOOD BANK Blood BLOOD SPECIMEN / Unknown Non-Lab Venipuncture / Unknown 02/13/2024 12:18 PM CDT 02/13/2024 12:18 PM CDT Mohit Olsen MD BLOOD BANK [facility] BLOOD BANK [address] [place] [address], [place] [phone] * (ABNORMAL) ANTIBODY IDENTIFICATION LAB USE ONLY (02/13/2024 12:18 PM CDT) Pathologist [facility] ANTIBODY IDENTIFICATION Anti-Purdys (A) 02/13/2024 9:02 PM CDT [facility] BLOOD BANK Blood BLOOD SPECIMEN / Unknown Non-Lab Venipuncture / Unknown 02/13/2024 12:18 PM CDT 02/13/2024 12:18 PM CDT Narrative [facility] BLOOD BANK - 02/13/2024 9:02 PM CDT Blood products may be delayed. Draw patient 24 hours prior to transfusion. Draw one red top and two purple top tubes for all Type and Screen orders. This patient's serological work-up may have included protocols and/or reagents that have not been cleared or approved by the U.S. Food and Drug Administration. If specific information is required, please contact the performing laboratory Mohit Olsen MD BLOOD BANK [facility] BLOOD BANK [address] [place] [address], [place] [phone] * CBC W PLT NO DIFF (02/13/2024 12:18 PM CDT) Pathologist [facility] WHITE BLOOD CELL COUNT 9.2 3.8 - 10.8 Thousand/u L [facility] RED BLOOD CELL COUNT 3.99 3.80 - 5.10 Million/uL [facility] HEMOGLOBIN 12.4 11.7 - 15.5 g/dL [facility] HEMATOCRIT 37.9 35.0 - 45.0 % [facility] MCV 95.0 80.0 - 100.0 fL [facility] MCH 31.1 27.0 - 33.0 pg [facility] MCHC 32.7 32.0 - 36.0 g/dL [facility] Comment: For adults, a slight decrease in the calculated MCHC value (in the range of 30 to 32 g/dL) is most likely not clinically significant; however, it should be interpreted with caution in correlation with other red cell parameters and the patient's clinical condition. RDW 13.1 11.0 - 15.0 % [facility] PLATELET COUNT 363 140 - 400 Thousand/u L [facility] ethan Matthewe MPV 9.9 7.5 - 12.5 fL [facility] Blood BLOOD SPECIMEN / Unknown 02/13/2024 12:18 PM CDT 02/13/2024 12:19 PM CDT Mohit Olsen MD HEMATOLOGY [facility] [address] [place] [address], [facility] [address] [place] [address] * (ABNORMAL) BASIC METABOLIC PANEL (02/13/2024 12:18 PM CDT) Only the most recent of2 resultswithin the time period is included. [facility] GLUCOSE 87 65 - 99 mg/dL [facility] Lo[facility] Comment: ? Fasting reference interval UREA NITROGEN (BUN) 26(H) 7 - 25 mg/dL [facility] ethan Matthewe CREATININE 0.92 0.60 - 1.00 mg/dL [facility] EGFR 64 > OR = 60 mL/min/1.7 3m2 [facility] BUN/CREATININE RATIO 28(H) 6 - 22 (calc) [facility] SODIUM 139 135 - 146 mmol/L [facility] POTASSIUM 5.3 3.5 - 5.3 mmol/L [facility] CHLORIDE 103 98 - 110 mmol/L [facility] CARBON DIOXIDE 26 20 - 32 mmol/L [facility] ELECTROLYTE BALANCE 10 7 - 17 mmol/L (calc) [facility] CALCIUM 9.4 8.6 - 10.4 mg/dL [facility] Blood BLOOD SPECIMEN / Unknown 02/13/2024 12:18 PM CDT 02/13/2024 12:19 PM CDT Mohit Olsen MD CHEMISTRY [facility] [address] [facility] [place] [address], [facility] [address] [place] [address] * AMB EPIDURAL STEROID INJECTION (02/06/2024 12:00 AM CDT) Eddie Fatima MD NEUROLOGY ORD * ECHO FELIPE WO CONTRAST W COLOR W LTD DOPPLER W BUBBLE (01/16/2024 1:00 PM CDT) PEAK TR VELOCITY 4.3 m/s EJECTION FRACTION 55 - 60% Anatomical Region Laterality Modality Ultrasound 01/16/2024 11:1 6 AM CDT Narrative 01/16/2024 2:02 PM CDT TRANSESOPHAGEAL ECHOCARDIOGRAM BINU BARRAGANT ? Accession#: ?? [id number] : ?1945 78 years Study Date: ?? 01/16/2024 11:16:25 AM Gender: F ?BP: ? 168/79 mmHg Height: 158.00 cm ?BSA: ?1.92 m? ? ? Weight: 91.00 kg ? Tech: ? MBL ? Referring MD: WESTLEY ROSENBAUM Site: ? [facility] Reading Location: ANW OP Patient Location: [...] performed. I performed the study with fellow [id number] Natanael Burns MD. I was present throughout [...] . This study was interpreted by an [facility] accredited facility. ??Final ?? Procedure Note Natanael Mcneill MD - 01/16/2024 TRANSESOPHAGEAL ECHOCARDIOGRAM BINU HUYNH : 1945 78 years Study Date: 01/16/2024 11:16:25 AM Gender: F BP: 168/79 mmHg Height: 158.00 cm BSA: 1.92 m? ? ? Weight: 91.00 kg Tech: [facility] Referring MD: WESTLEY ROSENBAUM Site: [facility] Reading Location: ANW OP Patient Location: [...] was performed.I performed the study with fellow [id number] Natanael Burns MD. I was presentthroughout the [...] . This study was interpreted by an [facility] accredited facility. Final Westley Rosenbaum MD ECHO ORD * (ABNORMAL) CBC WITH AUTO DIFFERENTIAL (01/10/2024 9:58 AM CDT) Only the most recent of2 resultswithin the time period is included. WHITE BLOOD COUNT 6.1 4.5 - 11.0 thou/cu mm 01/10/2024 10:05 AM CDT [facility] RED BLOOD COUNT 3.82(L) 4.00 - 5.20 mil/cu mm 01/10/2024 10:05 AM CDT [facility] HEMOGLOBIN 12.0 12.0 - 16.0 g/dL 01/10/2024 10:05 AM CDT [facility] HEMATOCRIT 35.6 33.0 - 51.0 % 01/10/2024 10:05 AM CDT [facility] MCV 93 80 - 100 fL 01/10/2024 10:05 AM CDT [facility] MCH 31.4 26.0 - 34.0 pg 01/10/2024 10:05 AM CDT [facility] MCHC 33.7 32.0 - 36.0 g/dL 01/10/2024 10:05 AM CDT [facility] RDW 14.1 11.5 - 15.5 % 01/10/2024 10:05 AM CDT [facility] PLATELET COUNT 239 140 - 440 thou/cu mm 01/10/2024 10:05 AM CDT [facility] MPV 9.8 6.5 - 11.0 fL 01/10/2024 10:05 AM CDT [facility] % NEUT 48.8 % 01/10/2024 10:05 AM CDT [facility] % LYMPH 38.4 % 01/10/2024 10:05 AM CDT [facility] % MONO 11.2 % 01/10/2024 10:05 AM CDT [facility] % EOS 0.8 % 01/10/2024 10:05 AM CDT [facility] % BASO 0.8 % 01/10/2024 10:05 AM CDT [facility] ABSOLUTE NEUTROPHILS 3.0 1.7 - 7.0 thou/cu mm 01/10/2024 10:05 AM CDT [facility] ABSOLUTE LYMPHOCYTES 2.3 0.9 - 2.9 thou/cu mm 01/10/2024 10:05 AM CDT [facility] ABSOLUTE MONOCYTES 0.7 <0.9 thou/cu mm 01/10/2024 10:05 AM CDT [facility] ABSOLUTE EOSINOPHILS 0.1 <0.5 thou/cu mm 01/10/2024 10:05 AM CDT [facility] ABSOLUTE BASOPHILS 0.1 <0.3 thou/cu mm 01/10/2024 10:05 AM CDT [facility] Blood BLOOD SPECIMEN / Unknown Butterfly / Unknown 01/10/2024 9:58 AM CDT 01/10/2024 9:58 AM CDT Preeti Esposito MD HEMATOLOGY [facility] [address] [place] [address], * TSH (01/10/2024 9:58 AM CDT) Only the most recent of2 resultswithin the time period is included. TSH 3.47 0.27 - 4.20 uIU/mL 01/10/2024 6:34 PM CDT [facility] Blood BLOOD SPECIMEN / Unknown Butterfly / Unknown 01/10/2024 9:58 AM CDT 01/10/2024 9:58 AM CDT Narrative [facility] - 01/10/2024 6:34 PM CDT In Adults, TSH values between 5.00 and 10.00 uIU/ml do not necessarily indicate the presence of Hypothyroidism. Correlation with clinical findings such as presence of goiter and/or Thyroperoxidase (TPO) Antibody may be helpful. For more information please refer to KIRILL 2004; 291: 228-238. Prabha GORE CHEMISTRY Performing Organization Address [facility]/ZIP Co de Phone Number [facility] [address] [place] [address], * (ABNORMAL) FERRITIN (01/10/2024 9:58 AM CDT) FERRITIN 174.0(H) 15.0 - 150.0 ng/mL 01/10/2024 6:34 PM CDT [facility] Blood BLOOD SPECIMEN / Unknown Butterfly / Unknown 01/10/2024 9:58 AM CDT 01/10/2024 9:58 AM CDT Preeti Esposito MD CHEMISTRY Performing Organization Address City/[facility]/ZIP Co de Phone Number [facility] [address] [place] [address], * (ABNORMAL) VITAMIN B12 (01/10/2024 9:58 AM CDT) VITAMIN B12 2,901(H) 232 - 1,245 pg/mL 01/10/2024 7:09 PM CDT [facility] Blood BLOOD SPECIMEN / Unknown Butterfly / Unknown 01/10/2024 9:58 AM CDT 01/10/2024 9:58 AM CDT Narrative [facility] - 01/10/2024 7:09 PM CDT Biotin supplements may cause clinically significant interference for this test assay. ??If interference is suspected, it is strongly recommended that biotin is discontinued for at least one week prior to retesting. Preeti Esposito MD CHEMISTRY [facility] [address] [place] [address], * EKG 12 LEAD (12/22/2023 8:52 AM CDT) Preeti Esposito MD EKG ORD * SC READING EKG - NO CHARGE, COMP ONLY (12/22/2023 8:52 AM CDT) Preeti Esposito MD PB - PROVIDER READINGS from Last 3 Months Advance Directives Documents on File Type Date Recorded Patient Client Support Manager Expl anation POLST 07/18/2023 * Full Code (Latest Code Status on File) Date Activated Date Inactivated Comments 01/16/2024 11:27 AM 01/17/2024 2:07 AM Question Answer Comments Code Status Discussion: Reviewed Preferences Care Teams Plastics Fabricator And Assembler Relationship Specialty Start Date End Date Prabha Nice PA [address] [place] [address] PCP - General Physician Relations Director 05/18/23
--- OUTSIDE RECORDS SUMMARY | 2024-03-04 14:43 | XMS_ITS | Referral Summary ---
Author Organization [place] Address [facility] [place] [address] Care Team Providers Care Senior Maintenance Machinist Name Role Phone Juan Rojas MD Primary Care Provider [phone] Allergies Active Allergy Reactions Criticality Noted Date Comments Droperidol Hallucination 03/22/2023 Metoclopramide Hallucination 03/22/2023 Sulfa Antibiotics Rash Low 03/22/2023 Patient experienced a rash while using Sulfa-cream product 5 or 6 years ago Medications atorvastatin (LIPITOR) 20 MG tablet Take 20 mg by mouth daily Active buPROPion (WELLBUTRIN) 100 MG tablet Take 100 mg by mouth 2 times daily Active cetirizine (ZYRTEC) 10 MG tablet Take 10 mg by mouth daily Active levothyroxine (SYNTHROID/LEVO THROID) 137 MCG tablet Take 137 mcg by [...] mcg by mouth daily Active vitamin D3 (CHOLECALCIFERO L) 50 mcg (2000 units) tablet Take 1 tablet by mouth daily Active traMADol (ULTRAM) 25 mg TABS half-tab Take 25 mg by mouth every 6 hours as needed for moderate to severe pain Active hydrochlorothia zide (HYDRODIURIL) 12.5 MG tablet Take 12.5 mg by mouth daily Active multivitamin (CENTRUM SILVER) tablet Take 2 tablets by mouth daily Active acetaminophen (TYLENOL) 500 MG tablet Take 500 mg by mouth every 8 hours as needed for mild pain Active oxyCODONE (ROXICODONE) 5 MG tabletIndicatio ns:SBO (small bowel obstruction) (H) Take 0.5-1 tablets [...] School Help Needed Not on file 03/22 Comments Unknown Sex and Gender Information Value Date Recorded Sex Assigned at Not on file Legal Sex Female 3:41 AM REHAB DIRECTOR OCCUPATIONAL THERAPIST Gender Identity Not on file Sexual Orientation Not on file Last Filed Vital Signs Vital Sign Reading Time Taken Comments Blood Pressure 155/66 03/27/2023 8:11 AM REHAB DIRECTOR OCCUPATIONAL THERAPIST Pulse 90 03/27/2023 8:11 AM REHAB DIRECTOR OCCUPATIONAL THERAPIST Temperature 36.5 ??C (97.7 ??F) 03/27/2023 8:11 AM CS T Respiratory Rate 18 03/27/2023 8:11 AM REHAB DIRECTOR OCCUPATIONAL THERAPIST Oxygen Saturation 93% 03/27/2023 8:11 AM REHAB DIRECTOR OCCUPATIONAL THERAPIST Inhaled Oxygen Concentration - - Weight 98.3 kg (216 lb 11.4 oz) 03/22/2023 3:57 PM REHAB DIRECTOR OCCUPATIONAL THERAPIST Height 160 cm (5' 3) 03/22/2023 5:00 PM REHAB DIRECTOR OCCUPATIONAL THERAPIST Body Mass Index 38.39 03/22/2023 3:57 PM REHAB DIRECTOR OCCUPATIONAL THERAPIST Plan of Treatment Not on file Procedures Procedure Name Priority Date/Time Associated Diagnosis Comments BASIC METABOLIC PANEL Routine 03/27/2023 6:31 AM REHAB DIRECTOR OCCUPATIONAL THERAPIST from Last 3 Months or Most Recently Relevant to Health Maintenance Results * (ABNORMAL) Basic metabolic panel (03/27/2023 6:31 AM REHAB DIRECTOR OCCUPATIONAL THERAPIST) Sodium 134(L) 135 - 145 mmol/L 03/27/2023 6:59 AM REHAB DIRECTOR OCCUPATIONAL THERAPIST [facility] Comment:Reference intervals for this test were updated on 01/24/2023 to more accurately reflect our healthy population. There may be differences in the flagging of prior results with similar values performed with this method. Interpretation of those prior results can be made in the context of the updated reference intervals. Potassium 4.1 3.4 - 5.3 mmol/L 03/27/2023 6:59 AM [facility] Chloride 101 98 - 107 mmol/L 03/27/2023 6:59 AM [facility] Carbon Dioxide (CO2) 24 22 - 29 mmol/L 03/27/2023 6:59 AM [facility] Anion Gap 9 7 - 15 mmol/L 03/27/2023 6:59 AM [facility] Urea Nitrogen 15.5 8.0 - 23.0 mg/dL 03/27/2023 6:59 AM [facility] Creatinine 0.84 0.51 - 0.95 mg/dL 03/27/2023 6:59 AM [facility] GFR Estimate 72 >60 mL/min/1. 73m2 03/27/2023 6:59 AM [facility] Calcium 8.5(L) 8.8 - 10.2 mg/dL 03/27/2023 6:59 AM [facility] Glucose 102(H) 70 - 99 mg/dL 03/27/2023 6:59 AM [facility] Blood STRUCTURE OF RIGHT UPPER LIMB / Unknown Venipuncture / Unknown 03/27/2023 6:31 AM REHAB DIRECTOR OCCUPATIONAL THERAPIST 03/27/2023 6:39 AM REHAB DIRECTOR OCCUPATIONAL THERAPIST us Bernice Stearns MD LAB - BLOOD ORDERABLES Fi nal Result LABORATORY [facility] [address] Lab (1st floor, no room number) [place] [address], [facility] [phone] from Last 3 Months or Most Recently Relevant to Health Maintenance Insurance [employer] MEDICARE ADVANTAGE Advance Directives For more information, please contact: [phone] * Full Code (Latest Code Status on File) Date Activated Date Inactivated Comments 03/22/2023 6:21 PM 03/27/2023 3:49 PM All basic and advanced life-sustaining interventions are performed as appropriate Question Answer Comments Code status determined by: Discussion with ty nt/ legal decision maker Care Teams Senior Maintenance Machinist Relationship Specialty Start Date End Date Juan Rojas MD PCP - General Family Medicine 03/23/23
--- OUTSIDE RECORDS SUMMARY | 2024-03-04 14:43 | XMS_ITS | Clinical Summary ---
Author Organization [place] Address [facility] [place] [address] Care Team Providers Care Cloth Measurer Machine Name Role Phone Juan Rojas MD Primary Care Provider [phone] Allergies Active Allergy Reactions Criticality Noted Date [...] on file Legal Sex Female 3:41 AM BONBON DIPPER Gender Identity Not on file Sexual Orientation Not on file Last Filed Vital Signs Vital Sign Reading Time Taken Comments Blood Pressure 155/66 03/27/2023 8:11 AM BONBON DIPPER Pulse 90 03/27/2023 8:11 AM BONBON DIPPER Temperature 36.5 ??C (97.7 ??F) 03/27/2023 8:11 AM CS T Respiratory Rate 18 03/27/2023 8:11 AM BONBON DIPPER Oxygen Saturation 93% 03/27/2023 8:11 AM BONBON DIPPER Inhaled Oxygen Concentration - - Weight 98.3 kg (216 lb 11.4 oz) 03/22/2023 3:57 PM BONBON DIPPER Height 160 cm (5' 3) 03/22/2023 5:00 PM BONBON DIPPER Body Mass Index 38.39 03/22/2023 3:57 PM BONBON DIPPER Plan of Treatment Health Maintenance Due Date [...] BASIC METABOLIC PANEL Routine 03/27/2023 6:31 AM BONBON DIPPER from Last 3 Months or Most Recently Relevant to Health Maintenance Results * (ABNORMAL) Basic metabolic panel (03/27/2023 6:31 AM BONBON DIPPER) Sodium 134(L) 135 - 145 mmol/L 03/27/2023 6:59 AM BONBON DIPPER [facility] Comment:Reference intervals for this test were updated on 01/24/2023 to more accurately reflect our healthy population. There may be differences in the flagging of prior results with similar values performed with this method. Interpretation of those prior results can be made in the context of the updated reference intervals. Potassium 4.1 3.4 - 5.3 mmol/L 03/27/2023 6:59 AM BONBON DIPPER [facility] Chloride 101 98 - 107 mmol/L 03/27/2023 6:59 AM [facility] Carbon Dioxide (CO2) 24 22 - 29 mmol/L 03/27/2023 6:59 AM [facility] Anion Gap 9 7 - 15 mmol/L 03/27/2023 6:59 AM [facility] Urea Nitrogen 15.5 8.0 - 23.0 mg/dL 03/27/2023 6:59 AM [facility] Creatinine 0.84 0.51 - 0.95 mg/dL 03/27/2023 6:59 AM [facility] GFR Estimate 72 >60 mL/min/1. 73m2 03/27/2023 6:59 AM [facility] Calcium 8.5(L) 8.8 - 10.2 mg/dL 03/27/2023 6:59 AM [facility] Glucose 102(H) 70 - 99 mg/dL 03/27/2023 6:59 AM [facility] Blood STRUCTURE OF RIGHT UPPER LIMB / Unknown Venipuncture / Unknown 03/27/2023 6:31 AM BONBON DIPPER 03/27/2023 6:39 AM BONBON DIPPER us Bernice Stearns MD LAB - BLOOD ORDERABLES Fi nal Result LABORATORY [facility] Acute Care Lab [address] [facility] Lab (1st floor, no room number) [place] [address], [facility] [phone] from Last 3 Months or Most Recently Relevant to Health Maintenance Insurance [facility] [place] [address] [employer] [address] Advance Directives For more information, please contact: [phone] * Full Code (Latest Code Status on File) Date Activated Date Inactivated Comments 03/22/2023 6:21 PM 03/27/2023 3:49 PM All basic and advanced life-sustaining interventions are performed as appropriate Question Answer Comments Code status determined by: Discussion with ty nt/ legal decision maker Care Teams Cloth Measurer Machine Relationship Specialty Start Date End Date Juan Rojas MD PCP - General Family Medicine 03/23/23
[2024-03-04 14:51] VITALS: BP 151/77; BP 157/71; BP 166/73; PULSE 67; PULSE 96
[2024-03-04 15:11] LABS: Appearance Urine Clear (Clear); Bilirubin Urine Negative (Negative); Blood Urine Negative (Negative); Color Urine Yellow (Yellow); Glucose Urine Negative (Negative); Ketones Urine Negative (Negative); Leukocyte Esterase Urine 1+ (Negative); Nitrite Urine Negative (Negative); Protein Urine Negative (Negative); Urobilinogen Urine 0.2 (0.2-1.0)
[2024-03-04 15:20] LABS: Basophils Absolute Auto 0.03 K/uL (0.00-0.30); Basophils Percent Auto 0.5 % (0.0-3.0); Eosinophils Absolute Auto 0.08 K/uL (0.00-0.50); Eosinophils Percent Auto 1.3 % (0.0-7.0); Hematocrit 35.7 % (33.0-51.0); Hemoglobin* 11.6 gm/dL (12.0-16.0); Immature Granulocytes Abs Auto 0.01 K/uL (0.00-0.30); Immature Granulocytes Pct Auto 0.2 %; Lymphocytes Absolute Auto 2.57 K/uL (0.90-2.90); Lymphocytes Percent Auto 40.3 % (20-44); Mean Corpuscular HGB Conc 33 gm/dL (32-36); Mean Corpuscular Hemoglobin 30 pg (26-34); Mean Corpuscular Volume 94 fL (80-100); Monocytes Percent Auto 14.9 % (0.0-11.0); Neutrophils Absolute Auto 2.74 K/uL (1.7-7.0); Neutrophils Percent Auto 42.8 % (42.0-72.0); Platelet Count* 331 K/uL (140-440); RDW Coefficient of Variation % 13.7 % (11.5-15.5); Red Blood Count 3.81 m/uL (4.00-5.20); White Blood Count* 6.38 K/uL (4.50-11.00)
[2024-03-04 15:27] LABS: Slide Review Reflex No
[2024-03-04 15:34] LABS: Amorphous Sediment Urine Few
[2024-03-04 15:41] LABS: Alanine Aminotransferase* 21 U/L (4-35); Alkaline Phosphatase* 118 U/L (40-150); Anion Gap 8 mEq/L (7-15); Aspartate Amino Transferase* 39 U/L (12-35); Bilirubin Total* 0.3 mg/dL (0.1-1.5); Blood Urea Nitrogen* 19 mg/dL (7-30); Carbon Dioxide* 29 mmol/L (20-32); Chloride* 96 mmol/L (96-114); Creatinine* 0.9 mg/dL (0.5-1.5); Est. Creatinine Clearance* 38.97; Estimated Glomerular Filt Rate 66 ml/min; Glucose* 86 mg/dL (60-115); Potassium* 4.3 mmol/L (3.6-5.1); Sodium* 133 mmol/L (135-149); Total Protein* 7.3 g/dL (6.0-8.3)
[2024-03-04] MEDS: 0.9 % SODIUM CHLORIDE 500 ML 500 ML 1000 ML IV (15:41)
[2024-03-04 15:51] LABS: D Dimer Quantitative* 1.22 ug/ml (0.00-0.50)
--- NOTE | 2024-03-04 15:55 | CRLHL7_ITS ---
For Patients: As a result of the Century Cures Act, medical imaging exams and procedure reports are released immediately into your electronic medical record. You may view this report before your referring provider. If you have questions, please contact your health care provider. Indication: SOB Technique: CT angiogram of the chest was performed for evaluation of pulmonary embolism. 95 mL of Isovue 370 intravenous contrast was administered. Comparison: 10/04/2021. Findings: CARDIOVASCULAR: Diagnostic quality: Contrast opacification of the pulmonary arterial circulation is adequate for assessment of pulmonary embolism. Study is not significantly limited by respiratory motion artifact. Pulmonary arteries: No filling defects to suggest pulmonary embolism. Not enlarged. Heart: No interventricular septal deviation. Left atrial enlargement. Mild coronary artery calcification. Moderate mitral annular calcification. Pericardium: No pericardial effusion. Thoracic aorta: Mild aortic calcification. Normal cervical branching. REMAINING CHEST: Medical devices: None. Thyroid: Normal. Lymph nodes: No supraclavicular, axillary, mediastinal, or hilar lymphadenopathy. Calcified mediastinal lymph nodes. Other mediastinal structures: Small hiatal hernia. Lung parenchyma: Moderate patchy bilateral ground-glass airspace opacities. Scattered calcified granulomata. Mild interlobular septal thickening. Airways: Moderate bronchial wall thickening. Scattered areas of mwpb-gp-ijtzsvwu bronchiectasis. Pleura: No significant abnormality. Chest wall: No significant abnormality. Upper abdomen: Status post cholecystectomy. Postsurgical changes are seen from likely gastric bypass. Rectus diastasis. Musculoskeletal: Moderate degenerative changes of the visualized spine. Abdv-hi-uksljrxt S shaped curvature of the visualized spine. Impression: 1. No acute pulmonary embolism. 2. Moderate patchy bilateral ground-glass airspace opacities with mild interlobular septal thickening are favored to represent hgts-dp-spbwriwc pulmonary edema. 3. Scattered areas of cndr-kl-cbxbivkf bronchiectasis may represent sequela of chronic aspiration or infection/inflammation. Please note that all CT scans at this facility use dose modulation, iterative reconstruction, and/or weight-based dosing when appropriate to reduce radiation dose to as low as reasonably achievable. Dictated by Royce Dominguez MD @ 03/04/2024 6:07:19 PM (Electronically Signed)
[2024-03-04 15:58] LABS: PCR FLU A Negative PCR FLU A (Negative); PCR FLU B Negative PCR FLU B (Negative); PCR RSV Negative PCR RSV (Negative); SARS PCR* Negative SARS-CoV-2 (Negative)
--- NOTE | 2024-03-04 16:01 | CRLHL7_ITS ---
For Patients: As a result of the Century Cures Act, medical imaging exams and procedure reports are released immediately into your electronic medical record. You may view this report before your referring provider. If you have questions, please contact your health care provider. Indication: Dizziness and hearing loss. Technique: Noncontrast sagittal T1 weighted, axial T2 fast spin echo, FLAIR, and diffusion weighted images of the head. Comparison: CT 03/04/2024 Findings: Multiple scattered foci of increased T2 signal within the periventricular and subcortical white matter of both cerebral hemispheres, as well as in the brainstem. Mild cerebral volume loss. The pituitary gland, optic chiasm, pineal gland, and cerebellar tonsils are unremarkable. No pathologic susceptibility artifacts. The ventricles, sulci and gyri are of normal size, shape and contour for age and degree of atrophy. No regions of restricted diffusion. Midline structures are centrally located. No convincing evidence of suspicious intra- or extra-axial fluid collections. Patient is edentulous. Bilateral pseudophakia. Impression: 1. No radiographic evidence of acute intracranial abnormalities. 2. Moderate supratentorial and infratentorial white matter changes are non-specific but most likely related to small vessel ischemic disease. Mild cerebral volume loss. Dictated by Hill Berger MD @ 03/04/2024 5:12:10 PM (Electronically Signed)
[2024-03-04 16:06] LABS: Lipase* 136 U/L (23-300)
[2024-03-04 16:20] LABS: NT Pro B Type NatriureticPept* 1100 pg/mL; Troponin I* < 0.01 ng/mL (0.01-0.04)
[2024-03-04] MEDS: MECLIZINE HCL 25 MG TABLET PO (17:29)
[2024-03-04 18:00] VITALS: BP 197/90; PULSE 72; RESP 18; TEMP 36.7; O2SAT 96
[2024-03-04] MEDS: FUROSEMIDE 10 MG/ML inj 40 MG IVP (19:10)
[2024-03-04 19:20] VITALS: RESP 16; TEMP 36.4
[2024-03-04 19:21] VITALS: BP 168/78; PULSE 72
[2024-03-26 13:27] LABS: Creatinine, Point-of-Care* 1.1 mg/dl (0.6-1.3)
== END 2024-03-04 19:21 | disposition home or self-care (01) ==
PROVIDERS: Student in an Organized Health Care Education/Training Program; Emergency Provider Family Medicine; PCP Physician Assistant
DX: R42 Dizziness and giddiness (principal); I50.9 Heart failure, unspecified; H91.93 Unspecified hearing loss, bilateral
CPT/HCPCS: 36415; 70450; 70551; 71275; 80053; 81001; 82565; 83690; 83735; 83880; 84484; 85025; 85379; 87086; 87631; 93005; 96361; 96374; 96375; 99284; 99285; A9270; J1940; J7030; Q9967

== ENCOUNTER 2024-03-17 08:47 | Emergency (ER) | payer MEDICARE, OTHER, SELFPAY ==
[2024-03-17 08:50] VITALS: BP 133/78; PULSE 75; RESP 18; TEMP 36.2; O2SAT 95; BMI 34.3
--- NOTE | 2024-03-17 09:47 | PC.NURSE ---
Was asked by the rooming house keeper Ayaka to see patient. She has been going without her ostomy appliance for 2 days due to burning. Her skin around the stoma was very inflamed. After getting the patient's consent i gently cleansed area with warm soapy water. Allow this to dry. Then used the no sting barrier wipe over her skin and put a light dusting of stoma adhesive powder. Then used the patient's barrier ring and stripes and applied those. then using a convex 2 piece appliance placed this after measuring her stoma which was 1/4 cm. After all things were in place patient did not complain of any burning or stinging. Explain to patient she needs to make an appointment to see Beverly RIZZO at the [facility] regarding her skin breakdown. all questions have been answered.
--- NOTE | 2024-03-17 09:54 | ED.GENADULT ---
HPI - General Adult General Date Seen: 03/17/24 Chief complaint: Unspecified Complaint, Adult Stated complaint: Stoma Time Seen by Provider: 03/17/24 09:47 History of Present Illness HPI narrative: 78-year-old female with a history of a colostomy and stoma placed at [facility] in 2004. She also has a history of hyperlipidemia, hypertension, COPD, paroxysmal AFib, peripheral neuropathy, GERD, aortic stenosis. She has been having trouble with her stoma for the past several months and follows with the [facility]ound [facility] here in [place] for it. There is some scar tissue on her abdominal wall just on the medial border of her stoma which makes it hard for her stoma dressing to firmly adhere to her abdominal wall. She has been having trouble with liquid in feces linking under her stoma off and on for a while. She reports that she had been having trouble with feces leaking under her stoma for a few days last week. This led to significant skin irritation of her abdominal wall so she was not able to keep her stoma dressing in place and therefore had nothing to attach her stoma bag to. She has been letting her stoma drained open air and catching the feces and drainage on paper towel for the past few days. She has developed increasing redness and skin irritation of her abdominal wall around the stoma. She knows she needs to go see the wound clinic for this but they are closed on the weekend so she came here to the ER today. She is not having any abdominal pain. No vomiting. No unusual stoma output. No bloody stool. No fevers. Related Data Home Medications ?Medication ?Instructions ?Recorded ?Confirmed cyanocobalamin (vitamin B-12) 2,000 mcg PO DAILY@119912/27/22 03/04/24 1,000 mcg tablet diclofenac sodium 1 % topical gel 4 g topical QID PRN pain 12/27/22 03/04/24 docusate sodium 100 mg capsule 100 mg PO HS 12/27/22 03/04/24 fluticasone propionate 50 2 spray intranasal DAILY PRN 12/27/22 03/04/24 mcg/actuation nasal spray,suspension melatonin 3 mg tablet 4.5 mg PO HS insomnia 12/27/22 03/04/24 multivitamin with minerals-folic 2 tab PO DAILY@1200 12/27/22 03/04/24 acid 80 mcg chewable tablet (Centrum Adult 50 Plus) omeprazole 40 mg capsule,delayed 40 mg PO DAILY 12/27/22 03/04/24 release venlafaxine 75 mg tablet 75 mg PO TID 12/27/22 03/04/24 acetaminophen 500 mg tablet 1,000 mg PO 3XD 03/22/23 03/04/24 atorvastatin 20 mg tablet 20 mg PO HS 03/22/23 03/04/24 cholecalciferol (vitamin D3) 50 50 mcg PO DAILY@1200 03/22/23 03/04/24 mcg (2,000 unit) capsule furosemide 20 mg tablet 20 mg PO MOFR 03/22/23 03/04/24 cetirizine 5 mg tablet 10 mg PO Q48H 09/15/23 03/04/24 hydrochlorothiazide 12.5 mg tablet 12.5 mg PO QAM 09/15/23 03/04/24 hydrocodone 10 mg-acetaminophen 15 ml PO Q4-6H PRN 09/15/23 09/15/23 325 mg/15 mL (15 mL) oral solution lactase 3,000 unit tablet 3,000 unit PO .4xd 09/15/23 03/04/24 losartan 50 mg tablet 100 mg PO HS 09/15/23 03/04/24 metoprolol succinate 50 mg 50 mg PO QDAY 10/12/23 03/04/24 tablet,extended release 24 hr Previous Rx's ?Medication ?Instructions ?Recorded bupropion HCl 100 mg tablet 100 mg PO BID #180 tabs 02/06/23 gabapentin 600 mg tablet 900 mg (1.5 x 600 mg) PO TID #405 02/06/23 tabs hydrocortisone 2.5 % topical cream 1 applic topical BID PRN rash #28 02/06/23 grams levothyroxine 137 mcg tablet 137 mcg PO DAILY #90 tabs 02/06/23 tramadol 50 mg tablet 50 mg PO QAM #90 tabs 02/06/23 nystatin 100,000 unit/gram topical 1 applic topical TID #15 grams 09/15/23 powder meclizine 12.5 mg tablet 12.5 mg PO TID PRN #20 tabs 03/04/24 Allergies Allergy/AdvReac Type Severity Reaction Status Date / Time droperidol Allergy Unknown Verified 03/17/24 08:58 metoclopramide (From Reglan) Allergy Unknown Verified 03/17/24 08:58 Polyglactin Allergy Unknown Verified 03/17/24 08:58 Sulfa (Sulfonamide Allergy Unknown Verified 03/17/24 08:58 Antibiotics) Reglan Allergy Unknown Uncoded 03/04/24 17:16 PFSH PFSH Medical History Small bowel obstruction ?K56.609 - Unspecified intestinal obstruction, unspecified as to partial versus complete obstruction (ICD-10) POLST (Physician Orders for Life-Sustaining Treatment) (~08/26/21) ?Z78.9 - Other specified health status (ICD-10) History of renal stone ?Z87.442 - Personal history of urinary calculi (ICD-10) History of DVT (deep vein thrombosis) ?Z86.718 - Personal history of other venous thrombosis and embolism (ICD-10) History of ischemic bowel disease (~2005) ?Z87.19 - Personal history of other diseases of the digestive system (ICD-10) Bleeding gastric varices (~2012) ?I86.4 - Gastric varices (ICD-10) Surgical History S/P bunionectomy ?Z98.890 - Other specified postprocedural states (ICD-10) S/P repair of ventral hernia ?Z98.890 - Other specified postprocedural states (ICD-10) ?Z87.19 - Personal history of other diseases of the digestive system (ICD-10) H/O thumb surgery ?Z98.890 - Other specified postprocedural states (ICD-10) S/P carpal tunnel release ?Z98.890 - Other specified postprocedural states (ICD-10) Status post bilateral knee replacements (~2014) ?Z96.653 - Presence of artificial knee joint, bilateral (ICD-10) S/P colectomy ?Z90.49 - Acquired absence of other specified parts of digestive tract (ICD-10) S/P gastric bypass ?Z98.84 - Bariatric surgery status (ICD-10) Social History What is your current living situation?: I presently have a place to live Problems where you live: no known problems In the past 12 months, utilities in danger of being shut off: no In the past 12 mos, have been you worried that your food would run out before you had money to buy more?: never true In the past 12 mos, the food you bought just didn't last and you didn't have money to buy more?: sometimes true Smoking Status: Never smoker Do you use any of these nicotine containing products: None Second hand tobacco smoke exposure: No How often do you have a drink containing alcohol: monthly or less How many standard drinks containing alcohol do you have on a typical day: 1 or 2 AUDIT-C Alcohol total score: 1 Non-prescribed substance use: denies use How often does anyone, including family, friends and others, physically hurt you: never How often does anyone, including family, friends and others, insult or talk down to you: never How often does anyone, including family, friends and others, threaten you with harm: never How often does anyone, including family, friends and others, scream or curse at you: never service: No Health Related Social Needs: food insecurity (Z59.41) Exam Narrative: Exam Narrative: Constitutional: Appears well-developed and well-nourished. Active. Non-toxic appearing. HENT: Head: Atraumatic. No signs of injury. Nose: No nasal discharge. Mouth/Throat: Mucous membranes are moist. Pharynx is normal. Tonsils symmetric. Uvula midline. Airway patent. Eyes: Conjunctivae normal and EOM are normal. Pupils are equal, round, and reactive to light. Right eye exhibits no discharge. Left eye exhibits no discharge. No icterus. Neck: Normal range of motion. Neck supple. No adenopathy. No stridor. Cardiovascular: Normal rate and regular rhythm. No murmur heard. No murmurs, rubs, or gallops. Brisk capillary refill Pulmonary/Chest: Effort normal. No stridor. No respiratory distress. No wheezes.No rhonchi. No rales. No retractions. Abdominal: Soft. Bowel sounds are normal. No distension. No mass. There is no tenderness. There is no rebound and no guarding. Musculoskeletal: Normal range of motion. No edema. No tenderness. No deformity. Neurological: Alert. Normal strength. No cranial nerve deficit or sensory deficit. Coordination normal. GCS eye subscore is 4. GCS verbal subscore is 5. GCS motor subscore is 6. Skin: She has an ostomy in her right mid/right lower quadrant of her abdomen. The ostomy mucosa looks pink and normal. It is actively draining a little bit of liquid and semi formed brown stool. No diarrhea. No bloody. The skin surrounding the stoma site is erythematous and irritated. This appears to be a contact dermatitis. Not really confluent erythema to suggest cellulitis. Skin is otherwise normal and pink and warm. No other rash noted. Const: Vital Signs, click to edit/add: Vital Signs - 24 hr 03/17/24 08:50 Temperature 97.1 F L Pulse Rate [Right Pulse Oximeter] 75 Respiratory Rate 18 Blood Pressure [Ri ght Upper Arm] 133/78 Pulse Oximetry 95 Oxygen Delivery Me thod Room Air Course Vital Signs Vital signs: Initial Vital Signs Temperature 97.1 F L 03/17/24 08:50 Temperature Source Temporal Artery Scan 03/17/24 08:50 Pulse Rate 75 03/17/24 08:50 Pulse Rhythm Regular 03/17/24 08:50 Respiratory Rate 18 03/17/24 08:50 Blood Pressure 133/78 03/17/24 08:50 Blood Pressure Mean 96 03/17/24 08:50 Blood Pressure Position Sitting 03/17/24 08:50 Pulse Oximetry 95 03/17/24 08:50 Oxygen Delivery Method Room Air 03/17/24 08:50 Vital Signs Temperature 97.1 F L 03/17/24 08:50 Pulse Rate 75 03/17/24 08:50 Respiratory Rate 18 03/17/24 08:50 Blood Pressure 133/78 03/17/24 08:50 Pulse Oximetry 95 03/17/24 08:50 Oxygen Delivery Method Room Air 03/17/24 08:50 Temperature 97.1 F L 03/17/24 08:50 Pulse Rate 75 03/17/24 08:50 Respiratory Rate 18 03/17/24 08:50 Blood Pressure 133/78 03/17/24 08:50 Pulse Oximetry 95 03/17/24 08:50 Oxygen Delivery Method Room Air 03/17/24 08:50 Medical Decision Making MDM Narrative Medical decision making narrative: 78-year-old female who has had a stoma in place for 19 years. She has had trouble with getting her stoma dressing diff adhere to her abdominal wall because of scar tissue on the medial aspect of the wall which is led to irritation off and on for quite some time. She normally follows with the [facility] here in [place] for this. She has been having recurrent skin irritation for the past several days, apparently triggered when her stoma rib dressing would not adhere to her abdominal wall leading to redness. She does have redness surrounding her stoma site today because she is completely taken the entire stoma dressing and bag off for the past few days and has been letting her stoma drained air and catching the feces on a paper towel. I think the redness is consistent with a dermatitis from the feces on the skin. I do not think this represents an active abdominal wall cellulitis or yeast infection. At this point only she is antibiotic or antifungal. We did have nursing here in the ER and they were able to do wound care, apply barrier cream and stoma powder and then they were able to get a new ostomy dressing with her ring and a new bag attached to the ring. At this point were able to catch all the draining feces in the bag. This will help stop the irritant affect on her skin. Of note, the patient was initially resistant to putting a new stoma bag on because she says her skins to irritated and having the dressing adherent to her skin might be painful. I wonder if there is some degree of confusion with the patient which is keeping her from doing her good wound care at home. She was initially fairly resistant to nurse's efforts to help her clean the skin and applied a new dressing to keep it from getting further irritated but ultimately was accepting. Or all she is alert and conversant. I think she does have the ability to care for self at home and the ability to arrange for follow-up. Patient will call the wound care clinic tomorrow for a recheck appointment. Discharge Plan Discharge Clinical Impression: Complication of ostomy, Contact dermatitis Patient Disposition: Home, Self-Care Condition: Stable Instructions: Contact Dermatitis (DC) Additional Instructions: As we discussed, please keep your stoma dressing in place because this will help keep stool in feces and liquid draining onto your skin of your abdominal wall in for causing further irritation. Call the [facility] tomorrow morning to arrange an ER follow-up visit for Monday or Monday. If you have any further problems such as increasing redness, worsening pain, fever, if her ostomy falls off again or starts leaking, or if you have any problems, please come back to the ER to be rechecked. Prescriptions: No Action metoprolol succinate 50 mg tablet extended release 24 hr 50 mg PO QDAY bupropion HCl 100 mg tablet 100 mg PO BID Qty: 180 3RF gabapentin 600 mg tablet 900 mg PO TID Qty: 405 3RF hydrocortisone 2.5 % cream 1 applic topical BID PRN (Reason: rash) Qty: 28 3RF levothyroxine 137 mcg tablet 137 mcg PO DAILY Qty: 90 3RF Patient Comments: pt states the pill wasn't in her pill box to take tramadol 50 mg tablet 50 mg PO QAM Qty: 90 1RF hydrochlorothiazide 12.5 mg tablet 12.5 mg PO QAM hydrocodone-acetaminophen 10-325 mg/15 mL(15 mL) solution 15 ml PO Q4-6H PRN lactase 3,000 unit tablet 3,000 unit PO .4xd Rx Instructions: administer with meals and/or snacks nystatin 100,000 unit/gram powder 1 applic topical TID Qty: 15 1RF Rx Instructions: apply to groin folds three times daily as needed. acetaminophen 500 mg tablet 1,000 mg PO 3XD cholecalciferol (vitamin D3) 50 mcg (2,000 unit) capsule 50 mcg PO DAILY@1200 atorvastatin 20 mg tablet 20 mg PO HS furosemide 20 mg tablet 20 mg PO MOFR Rx Instructions: MON AND MON cetirizine 5 mg tablet 10 mg PO Q48H Rx Instructions: EVERY OTHER DAY AT HS losartan 50 mg tablet 100 mg PO HS Centrum Adult 50 Plus 80 mcg tablet,chewable 2 tab PO DAILY@1200 venlafaxine 75 mg tablet 75 mg PO TID cyanocobalamin (vitamin B-12) 1,000 mcg tablet 2,000 mcg PO DAILY@1200 melatonin 3 mg tablet 4.5 mg PO HS omeprazole 40 mg capsule,delayed release(DR/EC) 40 mg PO DAILY docusate sodium 100 mg capsule 100 mg PO HS fluticasone propionate 50 mcg/actuation spray,suspension 2 spray INTRANASAL DAILY PRN diclofenac sodium 1 % gel 4 g topical QID PRN (Reason: pain) meclizine 12.5 mg tablet 12.5 mg PO TID PRNQty: 20 0RF Follow Up/Referrals: Prabha Nice PA-C [Primary Care Provider] - Stand Alone Forms: [employer] Info Instructions
--- OUTSIDE RECORDS SUMMARY | 2024-03-17 09:54 | XMS_ITS | Continuity of Care Document ---
Author Name [facility] Organization [facility] Care Team Providers Care Budget Officer Name Role Phone [facility] Unavailable Unavailable Medications Combined list of outpatient [...] ORAL, APOTEX ORION, 1000 ea. BOTTLE Active [id number] 4 2023 14 Pharmac y Data Transac tion Service Facilit y ATORVASTATI N CALCIUM (atorvastat in calcium), 20 MG, TABLET, ORAL, [employer]ARM[employer], 500 ea. BOTTLE Active [id number] 2023 30 Pharmac y Data Transac tion Service Facilit y ATORVASTATI N CALCIUM (atorvastat in calcium), 20 MG, TABLET, ORAL, NOVADOZ PHARMAC, 500 ea. BOTTLE Active [id number] 2023 30 Pharmac y Data Transac tion Service Facilit y atorvastati n calcium ([employer]) 1000 TABLET in 1 BOTTLE Active [id number] 2023 30 Pharmac y Data Transac tion Service Facilit y atorvastati n calcium ([employer]) 1000 TABLET in 1 BOTTLE Active [id number] 2023 30 Pharmac y Data Transac tion Service Facilit y BUPROPION HCL (bupropion HCl), 100 MG, TABLET, ORAL, [facility], 100 ea. BOTTLE Active [id number] 2023 28 Pharmac y Data Transac tion Service Facilit y BUPROPION HCL (BUPROPION HCL), 100MG, TABLET, ORAL, APOTEX ORION, 100 ea. BOTTLE Active [id number] 2023 90 Pharmac y Data Transac tion Service Facilit y CETIRIZINE HCL (cetirizine HCl), 10 MG, TABLET, ORAL, [facility], 300 ea. BOTTLE Active [id number] 2023 30 Pharmac y Data Transac tion Service Facilit y CETIRIZINE HCL (CETIRIZINE HCL), 5MG, TABLET, ORAL, MYLAN, 100 ea. BOTTLE Cancele d [id number] : 2023 0 Pharmac y Data Transac tion Service Facilit y CETIRIZINE HCL (CETIRIZINE HCL), 5MG, TABLET, ORAL, MYLAN, 100 ea. BOTTLE Active [id number] 2023 15 Pharmac y Data Transac tion Service Facilit y CETIRIZINE HCL (CETIRIZINE HCL), 5MG, TABLET, ORAL, MYLAN, 100 ea. BOTTLE Active [id number] 2023 15 Pharmac y Data Transac tion Service Facilit y CETIRIZINE HCL (CETIRIZINE HCL), 5MG, TABLET, ORAL, MYLAN, 100 ea. BOTTLE Active [id number] 2023 15 Pharmac y Data Transac tion Service Facilit y FLUCONAZOLE (fluconazol e), 100 MG, TABLET, ORAL, ZYDUS PHARMACEU, 100 ea. BOTTLE Active [id number] 2023 14 Pharmac y Data Transac tion Service Facilit y FUROSEMIDE (FUROSEMIDE ), 20MG, TABLET, ORAL, JORGE [facility] 1000 ea. BOTTLE Active [id number] 2023 8 Pharmac y Data Transac tion Service Facilit y FUROSEMIDE (FUROSEMIDE ), 20MG, TABLET, ORAL, JORGE L LABS., 1000 ea. BOTTLE Active [id number] 2023 8 Pharmac y Data Transac tion Service Facilit y FUROSEMIDE (FUROSEMIDE ), 20MG, TABLET, ORAL, JORGE L LABS., 1000 ea. BOTTLE Active [id number] 2023 8 Pharmac y Data Transac tion Service Facilit y GABAPENTIN (gabapentin ), 600 MG, TABLET, ORAL, [facility], 500 ea. BOTTLE Active [id number] 2023 63 Pharmac y Data Transac tion Service Facilit y GABAPENTIN (gabapentin ), 600 MG, TABLET, ORAL, CAMBER PHARMACE, 500 ea. BOTTLE Active [id number] 2023 135 Pharmac y Data Transac tion Service Facilit y GABAPENTIN (gabapentin ), 600 MG, TABLET, ORAL, CAMBER [employer]ARMACE, 500 ea. BOTTLE Active [id number] 2023 135 Pharmac y Data Transac tion Service Facilit y HYDROCHLORO THIAZIDE (hydrochlor othiazide), 12.5 MG, CAPSULE, ORAL, SCIEGEN PHARMAC, 500 ea. BOTTLE Active [id number] 2023 14 Pharmac y Data Transac tion Service Facilit y HYDROCHLORO THIAZIDE (HYDROCHLOR OTHIAZIDE), 12.5 MG, TABLET, ORAL, [facility], 1000 ea. BOTTLE Active [id number] 2023 30 Pharmac y Data Transac tion Service Facilit y HYDROCHLORO THIAZIDE (HYDROCHLOR OTHIAZIDE), 12.5 MG, TABLET, ORAL, [facility], 1000 ea. BOTTLE Active [id number] 2023 30 Pharmac y Data Transac tion Service Facilit y HYDROCHLORO THIAZIDE (HYDROCHLOR OTHIAZIDE), 12.5 MG, TABLET, ORAL, [facility], 1000 ea. BOTTLE Active [id number] 2023 30 Pharmac y Data Transac tion Service Facilit y HYDROCHLORO THIAZIDE (HYDROCHLOR OTHIAZIDE), 12.5 MG, TABLET, ORAL, [facility], 1000 ea. BOTTLE Active [id number] 2023 30 Pharmac y Data Transac tion Service Facilit y LEVOTHYROXI NE SODIUM (levothyrox ine sodium), 137 MCG, TABLET, ORAL, [facility], 1000 ea. BOTTLE Active [id number] 2023 30 Pharmac y Data Transac tion Service Facilit y LEVOTHYROXI NE SODIUM (levothyrox ine sodium), 137 MCG, TABLET, ORAL, [facility], 1000 ea. BOTTLE Active [id number] 2023 30 Pharmac y Data Transac tion Service Facilit y LEVOTHYROXI NE SODIUM (levothyrox ine sodium), 137 MCG, TABLET, ORAL, [facility], 1000 ea. BOTTLE Active [id number] 2023 30 Pharmac y Data Transac tion Service Facilit y LEVOTHYROXI NE SODIUM (levothyrox ine sodium), 137 MCG, TABLET, ORAL, [facility], 1000 ea. BOTTLE Active [id number] 2023 30 Pharmac y Data Transac tion Service Facilit y LEVOTHYROXI NE SODIUM (levothyrox ine sodium), 150 MCG, TABLET, ORAL, [facility], 1000 ea. BOTTLE Active [id number] 2023 30 Pharmac y Data Transac tion Service Facilit y LIDOCAINE-H YDROCORTISO NE (HYDROCORTI SONE AC/LIDOCAIN E), 0.5 %-3 %, CREAM (G), TOPICAL, [facility]ON [facility], 28.35 g TUBE Cancele d [id number] : 2023 0 Pharmac y Data Transac tion Service Facilit y LOSARTAN POTASSIUM (LOSARTAN POTASSIUM), 100 MG, TABLET, ORAL, AUROBINDO PHARM, 1000 ea. BOTTLE Active [id number] 2023 14 Pharmac y Data Transac tion Service Facilit y LOSARTAN POTASSIUM (LOSARTAN POTASSIUM), 100 MG, TABLET, ORAL, [facility], 1000 ea. BOTTLE Active [id number] 2023 30 Pharmac y Data Transac tion Service Facilit y LOSARTAN POTASSIUM (LOSARTAN POTASSIUM), 100 MG, TABLET, ORAL, [facility], 1000 ea. BOTTLE Active [id number] 2023 30 Pharmac y Data Transac tion Service Facilit y LOSARTAN POTASSIUM (LOSARTAN POTASSIUM), 100 MG, TABLET, ORAL, [facility], 1000 ea. BOTTLE Active [id number] 2023 30 Pharmac y Data Transac tion Service Facilit y LOSARTAN POTASSIUM (LOSARTAN POTASSIUM), 100 MG, TABLET, ORAL, [facility], 1000 ea. BOTTLE Active [id number] 2023 30 Pharmac y Data Transac tion Service Facilit y LOSARTAN POTASSIUM (LOSARTAN POTASSIUM), 100 MG, TABLET, ORAL, [facility], 1000 ea. BOTTLE Active [id number] 2023 30 Pharmac y Data Transac tion Service Facilit y LOSARTAN POTASSIUM (LOSARTAN POTASSIUM), 50 MG, TABLET, ORAL, [facility], 1000 ea. BOTTLE Active [id number] 2023 30 Pharmac y Data Transac tion Service Facilit y MUPIROCIN (MUPIROCIN) , 2%, OINT.(GM), TOPICAL, [employer] 22 g TUBE Active [id number] 2023 22 Pharmac y Data Transac tion Service Facilit y OMEPRAZOLE (omeprazole ), 40 MG, CAPSULE DR, ORAL, [employer]ARMA, 1000 ea. BOTTLE Active [id number] 2023 30 Pharmac y Data Transac tion Service Facilit y OMEPRAZOLE (omeprazole ), 40 MG, CAPSULE DR, ORAL, GLENMARK PHARMA, 1000 ea. BOTTLE Active [id number] 2023 14 Pharmac y Data Transac tion Service Facilit y OMEPRAZOLE (omeprazole ), 40 MG, CAPSULE DR, ORAL, GLENMARK PHARMA, 1000 ea. BOTTLE Active [id number] 2023 30 Pharmac y Data Transac tion Service Facilit y OMEPRAZOLE (omeprazole ), 40 MG, CAPSULE DR, ORAL, GLENMARK PHARMA, 1000 ea. BOTTLE Active [id number] 2023 30 Pharmac y Data Transac tion Service Facilit y OMEPRAZOLE (omeprazole ), 40 MG, CAPSULE , ORAL, GLENMARK PHARMA, 1000 ea. BOTTLE Active [id number] 2023 30 Pharmac y Data Transac tion Service Facilit y OXYBUTYNIN CHLORIDE ER (OXYBUTYNIN CHLORIDE), 5 MG, TAB ER 24, ORAL, IVONNE WOODSON, 500 ea. BOTTLE Active [id number] 2023 14 Pharmac y Data Transac tion Service Facilit y TRAMADOL HCL (tramadol HCl), 50 MG, TABLET, ORAL, AMNEAL PHARMACE, 500 ea. BOTTLE Active [id number] 2023 30 Pharmac y Data Transac tion Service Facilit y TRAMADOL HCL (tramadol HCl), 50 MG, TABLET, ORAL, AMNEAL PHARMACE, 500 ea. BOTTLE Active [id number] 2023 30 Pharmac y Data Transac tion Service Facilit y VENLAFAXINE HCL (venlafaxin e HCl), 75 MG, TABLET, ORAL, ALEMBIC PHARMAC, 100 ea. BOTTLE Active [id number] 2023 90 Pharmac y Data Transac tion Service Facilit y VENLAFAXINE HCL (venlafaxin e HCl), 75 MG, TABLET, ORAL, ALEMBIC PHARMAC, 100 ea. BOTTLE Active [id number] 2023 90 Pharmac y Data Transac tion Service Facilit y VENLAFAXINE HCL (venlafaxin e HCl), 75 MG, TABLET, ORAL, ALEMBIC PHARMAC, 100 ea. BOTTLE Active [id number] 2023 90 Pharmac y Data Transac tion Service Facilit y VENLAFAXINE HCL (venlafaxin e HCl), 75 MG, TABLET, ORAL, ALEMBIC PHARMAC, 100 ea. BOTTLE Active [id number] 2023 90 Pharmac y Data Transac tion Service Facilit y VENLAFAXINE HCL (venlafaxin e HCl), 75 MG, TABLET, ORAL, ALEMBIC PHARMAC, 100 ea. BOTTLE Active [id number] 2023 90 Pharmac y Data Transac tion Service Facilit y VENLAFAXINE HCL (VENLAFAXIN E HCL), 75 MG, TABLET, ORAL, [facility], 100 ea. BOTTLE Active [id number] 2023 42 Pharmac y Data Transac tion Service Facilit y Social History Combined list of available smoking, tobacco, and other social history from Department of Defense and Veterans Affairs facilities. Social History Type Response Date Comment [facility] e This section is an empty social history section. [employer]
--- OUTSIDE RECORDS SUMMARY | 2024-03-17 09:54 | XMS_ITS | Clinical Summary ---
Author Organization [place] Address [facility] [place] [address] Care Team Providers Care Controls Engineer Name Role Phone Juan Rojas MD Primary Care Provider [phone] Allergies Active Allergy Reactions Criticality Noted Date [...] on file Legal Sex Female 3:41 AM HEALTHCARE FACILITY ADMINISTRATOR Gender Identity Not on file Sexual Orientation Not on file Last Filed Vital Signs Vital Sign Reading Time Taken Comments Blood Pressure 155/66 03/27/2023 8:11 AM HEALTHCARE FACILITY ADMINISTRATOR Pulse 90 03/27/2023 8:11 AM HEALTHCARE FACILITY ADMINISTRATOR Temperature 36.5 ??C (97.7 ??F) 03/27/2023 8:11 AM CS T Respiratory Rate 18 03/27/2023 8:11 AM HEALTHCARE FACILITY ADMINISTRATOR Oxygen Saturation 93% 03/27/2023 8:11 AM HEALTHCARE FACILITY ADMINISTRATOR Inhaled Oxygen Concentration - - Weight 98.3 kg (216 lb 11.4 oz) 03/22/2023 3:57 PM HEALTHCARE FACILITY ADMINISTRATOR Height 160 cm (5' 3) 03/22/2023 5:00 PM HEALTHCARE FACILITY ADMINISTRATOR Body Mass Index 38.39 03/22/2023 3:57 PM HEALTHCARE FACILITY ADMINISTRATOR Plan of Treatment Health Maintenance Due Date [...] BASIC METABOLIC PANEL Routine 03/27/2023 6:31 AM HEALTHCARE FACILITY ADMINISTRATOR from Last 3 Months or Most Recently Relevant to Health Maintenance Results * (ABNORMAL) Basic metabolic panel (03/27/2023 6:31 AM HEALTHCARE FACILITY ADMINISTRATOR) Sodium 134(L) 135 - 145 mmol/L 03/27/2023 6:59 AM HEALTHCARE FACILITY ADMINISTRATOR [facility] Comment:Reference intervals for this test were updated on 01/24/2023 to more accurately reflect our healthy population. There may be differences in the flagging of prior results with similar values performed with this method. Interpretation of those prior results can be made in the context of the updated reference intervals. Potassium 4.1 3.4 - 5.3 mmol/L 03/27/2023 6:59 AM HEALTHCARE FACILITY ADMINISTRATOR [facility] Chloride 101 98 - 107 mmol/L 03/27/2023 6:59 AM HEALTHCARE FACILITY ADMINISTRATOR LABORATORY Carbon Dioxide (CO2) 24 22 - 29 mmol/L 03/27/2023 6:59 AM HEALTHCARE FACILITY ADMINISTRATOR LABORATORY Anion Gap 9 7 - 15 mmol/L 03/27/2023 6:59 AM HEALTHCARE FACILITY ADMINISTRATOR LABORATORY Urea Nitrogen 15.5 8.0 - 23.0 mg/dL 03/27/2023 6:59 AM HEALTHCARE FACILITY ADMINISTRATOR LABORATORY Creatinine 0.84 0.51 - 0.95 mg/dL 03/27/2023 6:59 AM HEALTHCARE FACILITY ADMINISTRATOR LABORATORY GFR Estimate 72 >60 mL/min/1. 73m2 03/27/2023 6:59 AM HEALTHCARE FACILITY ADMINISTRATOR LABORATORY Calcium 8.5(L) 8.8 - 10.2 mg/dL 03/27/2023 6:59 AM HEALTHCARE FACILITY ADMINISTRATOR LABORATORY Glucose 102(H) 70 - 99 mg/dL 03/27/2023 6:59 AM HEALTHCARE FACILITY ADMINISTRATOR LABORATORY Blood STRUCTURE OF RIGHT UPPER LIMB / Unknown Venipuncture / Unknown 03/27/2023 6:31 AM HEALTHCARE FACILITY ADMINISTRATOR 03/27/2023 6:39 AM HEALTHCARE FACILITY ADMINISTRATOR us Bernice Stearns MD LAB - BLOOD ORDERABLES Fi nal Result LABORATORY [facility] Acute Care Lab [address] [facility] (1st floor, no room number) [place] [address], [facility] [phone] from Last 3 Months or Most Recently Relevant to Health Maintenance Insurance [facility] MEDICARE ADVANTAGE [employer] MEDICARE ADVANTAGE Advance Directives For more information, please contact: [phone] * Full Code (Latest Code Status on File) Date Activated Date Inactivated Comments 03/22/2023 6:21 PM 03/27/2023 3:49 PM All basic and advanced life-sustaining interventions are performed as appropriate Question Answer Comments Code status determined by: Discussion with ty nt/ legal decision maker Care Teams Controls Engineer Relationship Specialty Start Date End Date Juan Rojas MD PCP - General Family Medicine 03/23/23
--- OUTSIDE RECORDS SUMMARY | 2024-03-17 09:54 | XMS_ITS | Clinical Summary ---
Author Organization [employer] Address [place], [place] [address] Care Team Providers Care Residential Housekeeper Name Role Phone Prabha Nice Primary Care Provider [phone] Allergies Active Allergy Reactions Criticality Noted Date Comments Blood-Group Specific Substance Other - Describe In Comment Field 02/13/2024 Patient has an anti-Clinton antibody. Blood products may be delayed. Draw patient 24 hours prior to transfusion. For [employer] testing, draw one red top and two purple top tubes for all Type and Screen orders. Droperidol Rash 02/22/2021 Polyglactin *Unknown 03/04/2024 Polyglactin 370 Rash 04/29/2011 Vicryl sutures--rash, itching [...] once daily. 90 Tablet 3 4 Active diclofenac topical (VOLTAREN) [...] Shortness Of Breath or Wheezing. 4 Active melatonin 3 mg tabletIndications: Insomnia, [...] mouth before breakfast. 90 Tablet 4 Active triamcinolone 0.1 % ointmentIndication s:Contact dermatitis, unspecified contact dermatitis type, unspecified trigger Apply topically to affected area(s) two times daily. 80 g 4 Active furosemide (LASIX) 20 mg tabletIndications: Peripheral edema TAKE ONE TABLET BY MOUTH EVERY MONDAY AND MONDAY 30 Tablet 1 4 Active hydrOXYzine HCL (ATARAX) 25 mg tabletIndications: Panic attacks TAKE 1 TABLET BY MOUTH EVERY SIX HOURS NEEDED FOR ANXIETY 30 Tablet 4 Active furosemide (LASIX) 20 mg tabletIndications: Peripheral edema TAKE ONE TABLET BY MOUTH EVERY MONDAY AND MONDAY 30 Tablet 2 4 02/20/20 24 Discontinued(Reo rder (E-cancel not sent)) hydrOXYzine HCL (ATARAX) 25 mg tabletIndications: Panic attacks TAKE 1 TABLET BY MOUTH EVERY SIX HOURS NEEDED FOR ANXIETY 30 Tablet 2 4 03/07/20 24 Discontinued Active Problems Problem Noted Date [...] Encounters Date Type Department Care Team Description 03/12/2024 Refill [facility] [address] [place] [address] Prabha Nice PA Refill Request (Meclizine) 03/06/2024 Orders Only [facility] [address] [place] [address] Ottoniel Babb MD <No scans attached> 03/04/2024 Orders Only [facility] Scanner 1 scan: (1-Ord) [facility], [facility] ANGIO CHEST PE PROTOCOL, 03/04/2024 03/04/2024 Orders Only [facility] Scanner 1 scan: (1-Ord) [facility], HEAD/BRAIN, 03/04/2024 03/04/2024 Orders Only [facility] Scanner 1 scan: (1-Ord) [facility], HEAD W/O CONTRAST , 03/04/2024 03/04/2024 Nurse Triage [facility] [address] [place] [address] Prabha Nice PA Dizziness 03/04/2024 Refill [facility] [address] [place] [address] Prabha Nice PA Refill Request (Hydroxyzine Hcl) 02/20/2024 Telephone [facility] [address] [place] [address] Prabha Nice PA Refill Request (Furosemide 20 mg tablet/) 02/13/2024 11:30 AM CDT Orders Only [facility] [address] [place] [address] Lab, [place] 02/13/2024 11:10 AM CDT Office Visit [facility] [address] [place] [address] Prabha Nice PA Rash 02/13/2024 Travel 02/08/2024 Telephone [facility] [address] [place] [address] Prabha Nice PA Medication Management (Can these be cheaper : cholecalciferol, Vitamin D3, 2,000 unit tablet/docusate (COLACE) 100 mg capsule/multivitamin (MVI) tablet/acetaminophen (TYLENOL EXTRA STRGTH) 500 mg tablet/melatonin 3 mg tablet/lotion for arthritis ) 02/07/[address] [place] [phone] Westley Rosenbaum MD Procedure Scheduling 02/07/2024 Nurse Triage [facility] [address] [place] [address] Prabha Nice PA Ear Pain/problem 02/06/2024 10:20 AM CDT Office Visit [facility] at [facility] [address] [place] [phone] Eddie Fatima MD Procedure (L4-5 ILESI) 02/01/2024 Nurse Triage [facility] [address] [place] [address] Prabha Nice PA Ear Pain/problem 01/30/2024 Telephone [facility] [address] [place] [address] Westley Rosenbaum MD Results (FELIPE) 01/22/2024 Telephone [facility] [address] [place] [address] Prabha Nice PA Refill Request (cyanocobalamin (Vitamin B-12) 1,000 mcg tablet) 01/16/2024 10:30 AM CDT - 01/16/2024 11:59 PM CDT Hospital Encounter [facility] [address] [place] [address] Westley Rosenbaum MD Laber, Michael Nonrheumatic mitral valve stenosis 01/16/2024 Travel 01/15/2024 Telephone [facility] [id number] [facility] [address] [place] [phone] Westley Rosenbaum MD Error-please disregard 01/15/2024 Refill [facility] [address] [place] [address] Prabha Nice PA Refill Request (Hydroxyzine Hcl) 01/12/2024 10:20 AM CDT Office Visit [facility] [address] [place] [address] Eddie Fatima MD Musculoskeletal Problem (Consult back pain) 01/12/2024 Travel 01/10/2024 10:00 AM CDT Orders Only [facility] [address] [place] [address] Lab, [place] 01/10/2024 Travel 01/01/2024 Telephone [facility] [address] [place] [address] Preeti Esposito MD Abnormal Lab Results 12/25/2023 Refill [facility] [address] [place] [address] Prabha Nice PA Refill Request 12/22/2023 Orders Only [facility] [address] [place] [address] Preeti Esposito MD 1 scan: (1-Ord) [id number]-8.15.24 12/18/2023 Refill [facility] [address] [place] [address] Prabha Nice PA Refill Request (Melatonin, Docusate, Cholecalciferol (Vitamin D3), Certavite-antioxidant) from Last 3 Months Immunizations Name Administration [...] Care Team (Late st Contact Info) Description 03/19/2024 1:20 PM GANG RIPSAW OPERATOR Orders Only [facility] [address] [facility] [address] [place] [phone] 03/19/2024 1:30 PM GANG RIPSAW OPERATOR Appointment [facility] [address] [place] [address] 03/19/2024 4:00 PM GANG RIPSAW OPERATOR Office Visit [facility] [address] [facility] [address] [place] [phone] [facility] [address] [place] [address] 03/19/2024 4:30 PM GANG RIPSAW OPERATOR Office Visit [facility] [address] [place] [address] Ottoniel Babb MD [address] [facility] [address] [place] [address] 03/21/2024 12:30 PM GANG RIPSAW OPERATOR Office Visit [facility] [address] [place] [address] [address] [facility] [address] [place] [phone] Health Maintenance Due Date Last Done Comments [...] Associated Diagnosis Comments SCAN-CT INTERPRETATION 12:00 AM GANG RIPSAW OPERATOR SCAN-MRI INTERPRETATION 03/04/2024 12:00 AM GANG RIPSAW OPERATOR SCAN-CT INTERPRETATION 12:00 AM GANG RIPSAW OPERATOR ANTIBODY IDENTIFICATION EACH PANEL Routine 02/13/2024 12:23 PM CDT ANTIBODY IDENTIFICATION LAB USE ONLY Routine 02/13/2024 12:18 PM CDT Mitral valve stenosis, unspecified etiology PATIENT ARTURO MONOCLONAL TEST LAB USE ONLY Routine 02/13/2024 [...] Routine 12/22/2023 8:52 AM CDT Preoperative examination from Last 3 Months Results * SCAN-MRI INTERPRETATION (03/04/2024 12:00 AM GANG RIPSAW OPERATOR) Anatomical Region Laterality Modality Other Scanner OTHER * SCAN-CT INTERPRETATION (03/04/2024 12:00 AM GANG RIPSAW OPERATOR) Only the most recent of2 resultswithin the time period is included. Anatomical Region Laterality Modality Other Scanner OTHER * ANTIBODY IDENTIFICATION EACH PANEL (02/13/2024 12:23 PM CDT) QUANTITY 1 [facility] LAB BLOOD BANK PANEL KIRBY ID Panel Antibody ID [facility] LAB BLOOD BANK Mohit Olsen MD BLOOD BANK [facility] [facility]OD BANK [address] [place] [address], [place] [phone] * PATIENT ARTURO MONOCLONAL TEST LAB USE ONLY (02/13/2024 12:18 PM CDT) Pathologist [facility] ARTURO ANTIGEN Testing Complete 02/13/2024 9:01 PM CDT [facility] BLOOD BANK Blood BLOOD SPECIMEN / Unknown Non-Lab Venipuncture / Unknown 02/13/2024 12:18 PM CDT 02/13/2024 12:18 PM CDT Mohit Olsen MD BLOOD BANK Performing Organization Address City/[facility]/ZIP Co de Phone Number [facility] BLOOD BANK [address] [place] [address], [place] [phone] * (ABNORMAL) TYPE & SCREEN (02/13/2024 12:18 PM CDT) Pathologist [facility] ABORH O Rh Positive 02/13/2024 8:39 PM CDT [facility] BLOOD BANK ANTIBODY SCREEN Positive(A) Negative 02/13/2024 8:39 PM CDT [facility] [employer] [facility] BLOOD BANK SPECIMEN EXPIRATION DATE/TIME 02/16/24 23:59 02/13/2024 8:39 PM CDT [facility] [employer] [facility] BLOOD BANK Blood BLOOD SPECIMEN / Unknown Non-Lab Venipuncture / Unknown 02/13/2024 12:18 PM CDT 02/13/2024 12:18 PM CDT Mohit Olsen MD BLOOD BANK [facility]OD BANK [address] [place] [address], [place] [phone] * (ABNORMAL) ANTIBODY IDENTIFICATION LAB USE ONLY (02/13/2024 12:18 PM CDT) Pathologist [facility] ANTIBODY IDENTIFICATION Anti-Clinton (A) 02/13/2024 9:02 PM CDT [facility] LAB BLOOD BANK Blood BLOOD SPECIMEN / Unknown Non-Lab Venipuncture / Unknown 02/13/2024 12:18 PM CDT 02/13/2024 12:18 PM CDT Narrative [facility] BLOOD BANK - 02/13/2024 9:02 PM CDT [...] performing laboratory Mohit Olsen MD BLOOD BANK [facility] BLOOD BANK [address] [place] [address], * CBC W PLT NO DIFF (02/13/2024 12:18 PM CDT) Pathologist [facility] WHITE BLOOD CELL COUNT 9.2 3.8 - [...] condition. RDW 13.1 11.0 - 15.0 % [facility] PLATELET COUNT 363 140 - 400 Thousand/u L [facility] MPV 9.9 7.5 - 12.5 fL [facility] Blood BLOOD SPECIMEN / Unknown 02/13/2024 12:18 PM CDT 02/13/2024 12:19 PM CDT Mohit Olsen MD HEMATOLOGY [email or web address] [facility] [address] [place] [address], [facility] [address] [place] [address] * (ABNORMAL) BASIC METABOLIC PANEL (02/13/2024 12:18 PM CDT) Pathologist [facility] GLUCOSE 87 65 - 99 mg/dL [facility] Comment: ? Fasting reference interval UREA NITROGEN (BUN) 26(H) 7 - 25 mg/dL [facility] CREATININE 0.92 0.60 - 1.00 mg/dL [facility] EGFR 64 > OR = 60 mL/min/1.7 3m2 [facility] BUN/CREATININE RATIO 28(H) 6 - 22 (calc) [facility] SODIUM 139 135 - 146 mmol/L [facility] POTASSIUM 5.3 3.5 - 5.3 mmol/L [facility] CHLORIDE 103 98 - 110 mmol/L [facility] CARBON DIOXIDE 26 20 - 32 mmol/L [facility] ELECTROLYTE BALANCE 10 7 - 17 mmol/L (calc) [facility] CALCIUM 9.4 8.6 - 10.4 mg/dL [facility] Blood BLOOD SPECIMEN / Unknown 02/13/2024 12:18 PM CDT 02/13/2024 12:19 PM CDT Mohit Olsen MD CHEMISTRY [email or web address] [facility] [address] [place] [address], [facility] [address] [place] [address] * AMB EPIDURAL STEROID INJECTION (02/06/2024 12:00 AM CDT) Eddie Fatima MD NEUROLOGY ORD * ECHO FELIPE WO CONTRAST W COLOR W LTD DOPPLER W BUBBLE (01/16/2024 1:00 PM CDT) PEAK TR VELOCITY 4.3 m/s EJECTION FRACTION 55 - 60% Anatomical Region Laterality Modality Ultrasound 01/16/2024 11:1 6 AM CDT Narrative 01/16/2024 2:02 PM CDT TRANSESOPHAGEAL ECHOCARDIOGRAM BINU M VAGT ? Accession#: ?? [id number] : ?1945 78 years Study Date: ?? 01/16/2024 11:16:25 AM Gender: F ?BP: ? 168/79 mmHg Height: 158.00 cm ?BSA: ?1.92 m? ? ? Weight: 91.00 kg ? Tech: ? MBL ? Referring MD: WESTLEY ROSENBAMU Site: ? [facility] Reading Location: ANW OP Patient Location: [...] performed. I performed the study with fellow [id number] Natanael Burns MD. I was present throughout [...] . This study was interpreted by an [facility] accredited facility. ??Final ?? Procedure Note Natanael Mcneill MD - 01/16/2024 TRANSESOPHAGEAL ECHOCARDIOGRAM BINU HUYNH : 1945 78 years Study Date: 01/16/2024 11:16:25 AM Gender: F BP: 168/79 mmHg Height: 158.00 cm BSA: 1.92 m? ? ? Weight: 91.00 kg Tech: [facility] Referring MD: WESTLEY ROSENBAUM Site: [facility] Reading Location: ANW OP Patient Location: [...] was performed.I performed the study with fellow [id number] Natanael Burns MD. I was presentthroughout the [...] . This study was interpreted by an [facility] accredited facility. Final Westley Rosenbaum MD ECHO ORD * (ABNORMAL) CBC WITH AUTO DIFFERENTIAL (01/10/2024 9:58 AM CDT) WHITE BLOOD COUNT 6.1 4.5 - 11.0 thou/cu mm 01/10/2024 10:05 AM CDT [facility] RED BLOOD COUNT 3.82(L) 4.00 - 5.20 mil/cu mm 01/10/2024 10:05 AM CDT [facility] HEMOGLOBIN 12.0 12.0 - 16.0 g/dL 01/10/2024 10:05 AM CDT [facility] HEMATOCRIT 35.6 33.0 - 51.0 % 01/10/2024 10:05 AM CDT [facility] MCV 93 80 - 100 fL 01/10/2024 10:05 AM CDT [facility] MCH 31.4 26.0 - 34.0 pg 01/10/2024 10:05 AM CDT [facility] MCHC 33.7 32.0 - 36.0 g/dL 01/10/2024 10:05 AM CDT [facility] RDW 14.1 11.5 - 15.5 % 01/10/2024 10:05 AM CDT [facility] PLATELET COUNT 239 140 - 440 thou/cu mm 01/10/2024 10:05 AM CDT [facility] MPV 9.8 6.5 - 11.0 fL 01/10/2024 10:05 AM CDT [facility] % NEUT 48.8 % 01/10/2024 10:05 AM CDT [facility] % LYMPH 38.4 % 01/10/2024 10:05 AM CDT [facility] % MONO 11.2 % 01/10/2024 10:05 AM CDT [facility] % EOS 0.8 % 01/10/2024 10:05 AM CDT [facility] % BASO 0.8 % 01/10/2024 10:05 AM CDT [facility] ABSOLUTE NEUTROPHILS 3.0 1.7 - 7.0 thou/cu mm 01/10/2024 10:05 AM CDT [facility] ABSOLUTE LYMPHOCYTES 2.3 0.9 - 2.9 thou/cu mm 01/10/2024 10:05 AM CDT [facility] ABSOLUTE MONOCYTES 0.7 <0.9 thou/cu mm 01/10/2024 10:05 AM CDT [facility] ABSOLUTE EOSINOPHILS 0.1 <0.5 thou/cu mm 01/10/2024 10:05 AM CDT [facility] ABSOLUTE BASOPHILS 0.1 <0.3 thou/cu mm 01/10/2024 10:05 AM CDT [facility] Blood BLOOD SPECIMEN / Unknown Butterfly / Unknown 01/10/2024 9:58 AM CDT 01/10/2024 9:58 AM CDT Preeti Esposito MD HEMATOLOGY [facility] [address] [place] [address], * TSH (01/10/2024 9:58 AM CDT) TSH 3.47 0.27 - 4.20 uIU/mL 01/10/2024 6:34 PM CDT [facility] Blood BLOOD SPECIMEN / Unknown Butterfly / Unknown 01/10/2024 9:58 AM CDT 01/10/2024 9:58 AM CDT Narrative [facility] - 01/10/2024 6:34 PM CDT In Adults, TSH values between 5.00 and 10.00 uIU/ml do not necessarily indicate the presence of Hypothyroidism. Correlation with clinical findings such as presence of goiter and/or Thyroperoxidase (TPO) Antibody may be helpful. For more information please refer to KIRILL 2004; 291: 228-238. Prabha GORE CHEMISTRY Performing Organization Address [facility] Co de Phone Number [facility] [address] [place] [address], * (ABNORMAL) FERRITIN (01/10/2024 9:58 AM CDT) FERRITIN 174.0(H) 15.0 - 150.0 ng/mL 01/10/2024 6:34 PM CDT [facility] Blood BLOOD SPECIMEN / Unknown Butterfly / Unknown 01/10/2024 9:58 AM CDT 01/10/2024 9:58 AM CDT Preeti Esposito MD CHEMISTRY Performing Organization Address [facility] de Phone Number [facility] [address] [place] [address], * (ABNORMAL) VITAMIN B12 (01/10/2024 9:58 AM CDT) VITAMIN B12 2,901(H) 232 - 1,245 pg/mL 01/10/2024 7:09 PM CDT [facility] Blood BLOOD SPECIMEN / Unknown Butterfly / Unknown 01/10/2024 9:58 AM CDT 01/10/2024 9:58 AM CDT Narrative [facility] - 01/10/2024 7:09 PM CDT Biotin supplements may cause clinically significant interference for this test assay. ??If interference is suspected, it is strongly recommended that biotin is discontinued for at least one week prior to retesting. Preeti Esposito MD CHEMISTRY Performing Organization Address [facility] de Phone Number [facility] [address] [place] [address], [place] * EKG 12 LEAD (12/22/2023 8:52 AM CDT) Preeti Esposito MD EKG ORD * [place] READING EKG - NO CHARGE, COMP ONLY (12/22/2023 8:52 AM CDT) Preeti Esposito MD PB - PROVIDER READINGS from Last 3 Months Advance Directives Documents on File Type Date Recorded Patient Rapid Transit Operator Expl anation POLST 07/18/2023 * Full Code (Latest Code Status on File) Date Activated Date Inactivated Comments 01/16/2024 11:27 AM 01/17/2024 2:07 AM Question Answer Comments Code Status Discussion: Reviewed Preferences Care Teams Residential Housekeeper Relationship Specialty Start Date End Date Prabha Nice PA [address] [place] [address] PCP - General Physician Battery Container Finishing Hand 05/18/23
--- OUTSIDE RECORDS SUMMARY | 2024-03-17 09:54 | XMS_ITS | Referral Summary ---
Author Organization [facility] [place] [address] Care Team Providers Care Engraver [employer] Name Role Phone Juan Rojas MD Primary Care Provider [phone] Allergies Active Allergy Reactions Criticality Noted Date [...] on file Legal Sex Female 3:41 AM LONG LINE TEAMSTER Gender Identity Not on file Sexual Orientation Not on file Last Filed Vital Signs Vital Sign Reading Time Taken Comments Blood Pressure 155/66 03/27/2023 8:11 AM LONG LINE TEAMSTER Pulse 90 03/27/2023 8:11 AM LONG LINE TEAMSTER Temperature 36.5 ??C (97.7 ??F) 03/27/2023 8:11 AM CS T Respiratory Rate 18 03/27/2023 8:11 AM LONG LINE TEAMSTER Oxygen Saturation 93% 03/27/2023 8:11 AM LONG LINE TEAMSTER Inhaled Oxygen Concentration - - Weight 98.3 kg (216 lb 11.4 oz) 03/22/2023 3:57 PM LONG LINE TEAMSTER Height 160 cm (5' 3) 03/22/2023 5:00 PM LONG LINE TEAMSTER Body Mass Index 38.39 03/22/2023 3:57 PM LONG LINE TEAMSTER Plan of Treatment Not on file Procedures Procedure Name Priority Date/Time Associated Diagnosis Comments BASIC METABOLIC PANEL Routine 03/27/2023 6:31 AM LONG LINE TEAMSTER from Last 3 Months or Most Recently Relevant to Health Maintenance Results * (ABNORMAL) Basic metabolic panel (03/27/2023 6:31 AM LONG LINE TEAMSTER) Sodium 134(L) 135 - 145 mmol/L 03/27/2023 6:59 AM LONG LINE TEAMSTER [facility] Comment:Reference intervals for this test were updated on 01/24/2023 to more accurately reflect our healthy population. There may be differences in the flagging of prior results with similar values performed with this method. Interpretation of those prior results can be made in the context of the updated reference intervals. Potassium 4.1 3.4 - 5.3 mmol/L 03/27/2023 6:59 AM [facility] Chloride 101 98 - 107 mmol/L 03/27/2023 6:59 AM [facility] Carbon Dioxide (CO2) 24 22 - 29 mmol/L 03/27/2023 6:59 AM [facility] Anion Gap 9 7 - 15 mmol/L 03/27/2023 6:59 AM [facility] Urea Nitrogen 15.5 8.0 - 23.0 mg/dL 03/27/2023 6:59 AM [facility] Creatinine 0.84 0.51 - 0.95 mg/dL 03/27/2023 6:59 AM [facility] GFR Estimate 72 >60 mL/min/1. 73m2 03/27/2023 6:59 AM [facility] Calcium 8.5(L) 8.8 - 10.2 mg/dL 03/27/2023 6:59 AM [facility] Glucose 102(H) 70 - 99 mg/dL 03/27/2023 6:59 AM [facility] Blood STRUCTURE OF RIGHT UPPER LIMB / Unknown Venipuncture / Unknown 03/27/2023 6:31 AM LONG LINE TEAMSTER 03/27/2023 6:39 AM LONG LINE TEAMSTER us Bernice Stearns MD LAB - BLOOD ORDERABLES Fi nal Result LABORATORY [facility] Acute Care Lab [address] Lab (1st floor, no room number) [place] [address], [facility] [phone] from Last 3 Months or Most Recently Relevant to Health Maintenance Insurance [employer] MEDICARE ADVANTAGE Advance Directives For more information, please contact: [phone] * Full Code (Latest Code Status on File) Date Activated Date Inactivated Comments 03/22/2023 6:21 PM 03/27/2023 3:49 PM All basic and advanced life-sustaining interventions are performed as appropriate Question Answer Comments Code status determined by: Discussion with ty nt/ legal decision maker Care Teams Engraver [employer] Relationship Specialty Start Date End Date Juan Rojas MD PCP - General Family Medicine 03/23/23
== END 2024-03-17 10:16 | disposition home or self-care (01) ==
PROVIDERS: Emergency Provider Emergency Medicine; PCP Physician Assistant
DX: K94.09 Other complications of colostomy (principal); L23.9 Allergic contact dermatitis, unspecified cause
CPT/HCPCS: 99282; 99283

== ENCOUNTER 2024-05-25 04:14 | Outpatient (CLI) | payer MEDICARE, OTHER, SELFPAY | END 2024-05-25 04:15 | disposition home or self-care (01) | LOC: AMB 06-02 07:37 | PROVIDERS: PCP Physician Assistant; Visit Provider Family Medicine | DX: R10.9 Unspecified abdominal pain (principal); K94.03 Colostomy malfunction | CPT/HCPCS: A0425; A0429 ==

== ENCOUNTER 2024-05-25 04:50 | Observation (INO) | payer MEDICARE, OTHER, SELFPAY ==
[2024-05-25] VITALS (34 sets, daily range): BP systolic 128–196; BP diastolic 42–90; PULSE 65–102; RESP 14–20; TEMP 36.1–36.8; O2SAT 87–100; BMI 31.9; BMI 35.0
--- OUTSIDE RECORDS SUMMARY | 2024-05-25 04:52 | XMS_ITS | Clinical Summary ---
Author Organization [facility] [place] [address] Care Team Providers Care Glassie Name Role Phone Juan Rojas MD Primary Care Provider [phone] Allergies Active Allergy Reactions Criticality Noted Date [...] on file Legal Sex Female 3:41 AM FORENSIC SCIENCE EXAMINER Gender Identity Not on file Sexual Orientation Not on file Last Filed Vital Signs Vital Sign Reading Time Taken Comments Blood Pressure 155/66 03/27/2023 8:11 AM FORENSIC SCIENCE EXAMINER Pulse 90 03/27/2023 8:11 AM FORENSIC SCIENCE EXAMINER Temperature 36.5 C (97.7 F) 03/27/2023 8:11 AM FORENSIC SCIENCE EXAMINER Respiratory Rate 18 03/27/2023 8:11 AM FORENSIC SCIENCE EXAMINER Oxygen Saturation 93% 03/27/2023 8:11 AM FORENSIC SCIENCE EXAMINER Inhaled Oxygen Concentration - - Weight 98.3 kg (216 lb 11.4 oz) 03/22/2023 3:57 PM FORENSIC SCIENCE EXAMINER Height 160 cm (5' 3) 03/22/2023 5:00 PM FORENSIC SCIENCE EXAMINER Body Mass Index 38.39 03/22/2023 3:57 PM FORENSIC SCIENCE EXAMINER Plan of Treatment Health Maintenance Due Date Last Done Comments ADVANCE CARE PLANNING 1945 ANNUAL REVIEW OF HM ORDERS 1945 DEXA 1945 LIPID 1945 TSH W/FREE T4 REFLEX 1946 HEPATITIS C SCREENING 1964 FALL RISK ASSESSMENT 2011 ZOSTER IMMUNIZATION (2 of 3) 09/03/2013 07/09/2013 Pneumococcal Vaccine: 50+ Years (3 of 3 - PCV20 or PCV21) 11/12/2019 11/11/2014, 09/28/2009, 05/01/2007 RSV VACCINE (1 - 1-dose 75+ series) 2021 MEDICARE ANNUAL WELLNESS VISIT 02/22/2022 02/22/2021 COVID-19 Vaccine (5 - season) 2023 03/09/2022, 02/22/2021, 07/29/2020, Additional history exists INFLUENZA VACCINE (#1) 2023 , 02/17/2022, 02/15/2021, Additional history exists PHQ-2 (once per calendar year) 2024 GLUCOSE 03/27/2026 03/27/2023, 03/02, 03/25/2023, Additional history [...] BASIC METABOLIC PANEL Routine 03/27/2023 6:31 AM FORENSIC SCIENCE EXAMINER from Last 3 Months or Most Recently Relevant to Health Maintenance Results * (ABNORMAL) Basic metabolic panel (03/27/2023 6:31 AM FORENSIC SCIENCE EXAMINER) Sodium 134(L) 135 - 145 mmol/L 03/27/2023 6:59 AM FORENSIC SCIENCE EXAMINER [facility] Comment:Reference intervals for this test were updated on 01/24/2023 to more accurately reflect our healthy population. There may be differences in the flagging of prior results with similar values performed with this method. Interpretation of those prior results can be made in the context of the updated reference intervals. Potassium 4.1 3.4 - 5.3 mmol/L 03/27/2023 6:59 AM FORENSIC SCIENCE EXAMINER [facility] Chloride 101 98 - 107 mmol/L 03/27/2023 6:59 AM FORENSIC SCIENCE EXAMINER [facility] Carbon Dioxide (CO2) 24 22 - 29 mmol/L 03/27/2023 6:59 AM FORENSIC SCIENCE EXAMINER LABORATORY Anion Gap 9 7 - 15 mmol/L 03/27/2023 6:59 AM FORENSIC SCIENCE EXAMINER LABORATORY Urea Nitrogen 15.5 8.0 - 23.0 mg/dL 03/27/2023 6:59 AM FORENSIC SCIENCE EXAMINER LABORATORY Creatinine 0.84 0.51 - 0.95 mg/dL 03/27/2023 6:59 AM FORENSIC SCIENCE EXAMINER LABORATORY GFR Estimate 72 >60 mL/min/1. 73m2 03/27/2023 6:59 AM FORENSIC SCIENCE EXAMINER LABORATORY Calcium 8.5(L) 8.8 - 10.2 mg/dL 03/27/2023 6:59 AM FORENSIC SCIENCE EXAMINER LABORATORY Glucose 102(H) 70 - 99 mg/dL 03/27/2023 6:59 AM FORENSIC SCIENCE EXAMINER LABORATORY Blood STRUCTURE OF RIGHT UPPER LIMB / Unknown Venipuncture / Unknown 03/27/2023 6:31 AM FORENSIC SCIENCE EXAMINER 03/27/2023 6:39 AM FORENSIC SCIENCE EXAMINER us Bernice Stearns MD LAB - BLOOD ORDERABLES Fi nal Result LABORATORY [facility] Acute Care Lab [address] Lab (1st floor, no room number) [place] [address], [facility] [phone] from Last 3 Months or Most Recently Relevant to Health Maintenance Insurance [facility] MEDICARE ADVANTAGE [employer] MEDICARE ADVANTAGE Advance Directives For more information, please contact: [phone] * Full Code (Latest Code Status on File) Date Activated Date Inactivated Comments 03/22/2023 6:21 PM 03/27/2023 3:49 PM All basic and advanced life-sustaining interventions are performed as appropriate Question Answer Comments Code status determined by: Discussion with ty nt/ legal decision maker Care Teams Glassie Relationship Specialty Start Date End Date Juan Rojas MD PCP - General Family Medicine 03/23/23
--- OUTSIDE RECORDS SUMMARY | 2024-05-25 04:52 | XMS_ITS | Referral Summary ---
Author Organization [place] Address [facility] [place] [address] Care Team Providers Care Otolaryngology Nurse Name Role Phone Juan Rojas MD Primary Care Provider Allergies Active Allergy Reactions Criticality Noted Date [...] on file Legal Sex Female 3:41 AM INTRAVENOUS THERAPY NURSE Gender Identity Not on file Sexual Orientation Not on file Last Filed Vital Signs Vital Sign Reading Time Taken Comments Blood Pressure 155/66 03/27/2023 8:11 AM INTRAVENOUS THERAPY NURSE Pulse 90 03/27/2023 8:11 AM INTRAVENOUS THERAPY NURSE Temperature 36.5 C (97.7 F) 03/27/2023 8:11 AM INTRAVENOUS THERAPY NURSE Respiratory Rate 18 03/27/2023 8:11 AM INTRAVENOUS THERAPY NURSE Oxygen Saturation 93% 03/27/2023 8:11 AM INTRAVENOUS THERAPY NURSE Inhaled Oxygen Concentration - - Weight 98.3 kg (216 lb 11.4 oz) 03/22/2023 3:57 PM INTRAVENOUS THERAPY NURSE Height 160 cm (5' 3) 03/22/2023 5:00 PM INTRAVENOUS THERAPY NURSE Body Mass Index 38.39 03/22/2023 3:57 PM INTRAVENOUS THERAPY NURSE Plan of Treatment Not on file Procedures Procedure Name Priority Date/Time Associated Diagnosis Comments BASIC METABOLIC PANEL Routine 03/27/2023 6:31 AM INTRAVENOUS THERAPY NURSE from Last 3 Months or Most Recently Relevant to Health Maintenance Results * (ABNORMAL) Basic metabolic panel (03/27/2023 6:31 AM INTRAVENOUS THERAPY NURSE) Sodium 134(L) 135 - 145 mmol/L 03/27/2023 6:59 AM INTRAVENOUS THERAPY NURSE [facility] Comment:Reference intervals for this test were updated on 01/24/2023 to more accurately reflect our healthy population. There may be differences in the flagging of prior results with similar values performed with this method. Interpretation of those prior results can be made in the context of the updated reference intervals. Potassium 4.1 3.4 - 5.3 mmol/L 03/27/2023 6:59 AM [facility] Chloride 101 98 - 107 mmol/L 03/27/2023 6:59 AM [facility] Carbon Dioxide (CO2) 24 22 - 29 mmol/L 03/27/2023 6:59 AM [facility] Anion Gap 9 7 - 15 mmol/L 03/27/2023 6:59 AM INTRAVENOUS THERAPY NURSE LABORATORY Urea Nitrogen 15.5 8.0 - 23.0 mg/dL 03/27/2023 6:59 AM [facility] Creatinine 0.84 0.51 - 0.95 mg/dL 03/27/2023 6:59 AM [facility] GFR Estimate 72 >60 mL/min/1. 73m2 03/27/2023 6:59 AM [facility] Calcium 8.5(L) 8.8 - 10.2 mg/dL 03/27/2023 6:59 AM [facility] Glucose 102(H) 70 - 99 mg/dL 03/27/2023 6:59 AM [facility] Blood STRUCTURE OF RIGHT UPPER LIMB / Unknown Venipuncture / Unknown 03/27/2023 6:31 AM INTRAVENOUS THERAPY NURSE 03/27/2023 6:39 AM INTRAVENOUS THERAPY NURSE us Bernice Stearns MD LAB - BLOOD ORDERABLES nal Result LABORATORY [facility] [address] (1st floor, no room number) [place] [address], [facility] [phone] from Last 3 Months or Most Recently Relevant to Health Maintenance Insurance [employer]AGE [employer]AGE Advance Directives For more information, please contact: [phone] * Full Code (Latest Code Status on File) Date Activated Date Inactivated Comments 03/22/2023 6:21 PM 03/27/2023 3:49 PM All basic and advanced life-sustaining interventions are performed as appropriate Question Answer Comments Code status determined by: Discussion with radhae nt/ legal decision maker Care Teams Otolaryngology Nurse Relationship Specialty Start Date End Date Juan Rojas MD PCP - General Family Medicine 03/23/23
--- OUTSIDE RECORDS SUMMARY | 2024-05-25 04:52 | XMS_ITS | Clinical Summary ---
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 Blood products may be delayed. Draw patient 24 hours prior to transfusion. For [facility] testing, draw one red top and two purple top tubes for all Type and Screen orders. Droperidol Rash 02/22/2021 Polyglactin *Unknown 03/04/2024 Polyglactin 370 Rash 04/29/2011 Vicryl sutures--rash, itching Metoclopramide Rash 02/22/2021 Sulfa (Sulfonamide Antibiotics) Rash 02/22/2021 Sulfamethoxazole-Trimetho prim Rash Medium 05/23/2011 Sutures Rash 04/29/2011 Vicryl sutures--rash, itching Medications lactase (LACTAID) 3,000 unit tabletIndications: Lactose intolerance Take 1 Tablet (3,000 units) by mouth 4 times daily if needed for Lactose Intolerance. 100 Tablet 2 11/07/19 24 Active Lidocaine-Hydrocor tisone Lamont 3-0.5 % topical creamIndications:P eripheral sensory neuropathy Apply topically to affected area(s) at bedtime if needed (nerupathy in feet). 28.3 g 2 11/07/19 24 Active metoprolol succinate (Toprol XL) 50 mg sustained-release tabletIndications: Nonrheumatic mitral valve stenosis Take 1 Tablet (50 mg) by mouth once daily. 90 Tablet 3 11/07/19 24 Active diclofenac topical (VOLTAREN) 1 % gelIndications:Chr onic pain of both knees Apply 4 g topically to affected area(s) four times daily. 100 g 9 11/17/19 24 Active fluticasone (50 mcg per actuation) nasal solution (FLONASE)Indicatio ns:Non-seasonal allergic rhinitis due to pollen Inhale 2 Sprays to both nostrils once daily. 48 g 3 11/17/19 24 Active buPROPion (WELLBUTRIN) 100 mg tabletIndications: MDD (major depressive disorder), recurrent episode, moderate (HC) Take 1 Tablet (100 mg) by mouth three times daily. Based on updated ISMP guidelines, DO NOT crush or chew. 270 Tablet 2 11/28/19 24 Active cetirizine (ZYRTEC) 10 mg tabletIndications: Seasonal allergic rhinitis due to pollen Take 1 Tablet (10 mg) by mouth once daily. 90 Tablet 3 11/28/19 24 Active atorvastatin (LIPITOR) 20 mg tabletIndications: Mixed hyperlipidemia Take 1 Tablet (20 mg) by mouth at bedtime. 90 Tablet 2 12/13/19 24 Active omeprazole (PRILOSEC) 40 mg Delayed-Release capsuleIndications :Chronic GERD Take 1 Capsule (40 mg) by mouth once daily before a meal. 90 Capsule 2 12/13/19 24 Active oxybutynin XL (DITROPAN XL) 5 mg CR tabletIndications: OAB (overactive bladder) Take 1 Tablet (5 mg) by mouth once daily. 90 Tablet 2 12/13/19 24 Active venlafaxine (EFFEXOR) 75 mg tabletIndications: MDD (major depressive disorder), recurrent episode, moderate (HC) Take 1 Tablet (75 mg) by mouth three times daily. 270 Tablet 1 12/13/19 24 Active losartan (COZAAR) 100 mg tabletIndications: Primary hypertension Take 1 Tablet (100 mg) by mouth once daily. 90 Tablet 1 12/13/19 24 Active nystatin powder (MYCOSTATIN) powder Apply topically to affected area(s) each time if needed. 10/31/19 24 Active albuterol HFA (PRO-AIR; VENTOLIN; PROVENTIL) 90 mcg/actuation inhalerIndications :Non-seasonal allergic rhinitis due to pollen Inhale 1-2 Puffs by mouth every 4 hours if needed for Shortness Of Breath or Wheezing. 12/14/19 24 Active melatonin 3 mg tabletIndications: Insomnia, idiopathic TAKE 1 & 1/2 TABLETS (4.5 MG) BY MOUTH EVERY NIGHT AT BEDTIME 135 Tablet 3 12/25/19 24 Active docusate (COLACE) 100 mg capsuleIndications :Chronic constipation TAKE 1 CAPSULE BY MOUTH DAILY 90 Capsule 3 12/25/19 24 Active cholecalciferol, Vitamin D3, 2,000 unit tabletIndications: Vitamin D deficiency TAKE 1 TABLET BY MOUTH DAILY 90 Tablet 3 12/25/19 24 Active Multivitamin Cmb No.21-Iron-FA (Certavite-Antioxi dant) 18-400 mg-mcg tabIndications:Ile ostomy status (HC) TAKE 2 TABLETS BY MOUTH DAILY 180 Tablet 3 12/25/19 24 Active acetaminophen (TYLENOL EXTRA STRGTH) 500 mg tabletIndications: Chronic low back pain, unspecified back pain laterality, unspecified whether sciatica present Take 2 Tablets (1,000 mg) by mouth three times daily. 180 Tablet 11 12/28/19 24 Active multivitamin (MVI) tabletIndications: Ileostomy status (HC) Take 1 Tablet by mouth once daily. 90 Tablet 3 12/28/19 24 Active cholecalciferol (Vitamin D-3) 2,000 unit capsuleIndications :Vitamin D deficiency Take 1 Capsule (2,000 units) by mouth once daily. 90 Capsule 3 12/28/19 24 Active hydroCHLOROthiazid e 12.5 mg tabletIndications: Primary hypertension Take 1 Tablet (12.5 mg) by mouth once daily in the morning. 90 Tablet 2 12/28/19 24 Active triamcinolone 0.1 % ointmentIndication s:Contact dermatitis, unspecified contact dermatitis type, unspecified trigger Apply topically to affected area(s) two times daily. 80 g 02/13/20 24 Active furosemide (LASIX) 20 mg tabletIndications: Peripheral edema TAKE ONE TABLET BY MOUTH EVERY MONDAY AND MONDAY 30 Tablet 1 02/20/20 24 Active meclizine (ANTIVERT) 12.5 mg tabletIndications: Vertigo TAKE ONE TABLET BY MOUTH THREE TIMES DAILY NEEDED 60 Tablet 1 03/18/20 24 Active levothyroxine (SYNTHROID) 175 mcg tabletIndications: Hypothyroidism (acquired) Take 1 Tablet (175 mcg) by mouth before breakfast. 90 Tablet 2 03/24/20 24 Active hydrOXYzine HCL (ATARAX) 25 mg tabletIndications: Panic attacks Take 25 mg bid for anxiety. Doses must be taken at least 6 hours apart. 180 Tablet 3 03/25/20 24 Active cephalexin 500 mg capsuleIndications :Cellulitis, abdominal wall Take 1 Capsule (500 mg) by mouth three times daily. 21 Capsule 03/26/20 24 Active pregabalin (LYRICA) 75 mg capsuleIndications :Peripheral sensory neuropathy Take 1 Capsule (75 mg) by mouth two times daily. 180 Capsule 1 05/03/19 25 Active gabapentin (NEURONTIN) 600 mg tabletIndications: Other chronic pain Take 1.5 Tablets (900 mg) by mouth three times daily. 405 Tablet 2 11/17/19 24 025 Discontin ued(*Medi cation adjustmen t) Active Problems Problem Noted Date Diagnosed Date [...] artery 02/23/20 21 Overview (02/22/2021): diagnosed day 2009 HTN (hypertension) [...] Encounters Date Type Department Care Team Description 05/03/2024 11:10 AM PARISH VISITOR Phone Office Visit [facility] [address] [place] [address] Prabha Nice PA Foot Pain/problem (Constant burning pain in feet for last two weeks); Phone Visit (No vitals taken) 05/03/2024 Travel 05/02/2024 Telephone [facility] [address] [place] [address] Prabha Nice PA Questions 04/18/2024 Refill [facility] [address] [place] [address] Prabha Nice PA Refill Request (meclizine (ANTIVERT) 12.5 mg tablet /) 04/16/2024 Telephone [facility] [address] [phone] Ana Anthony RN Heart Problem (Mitral Valve Disease) 04/10/2024 Nurse Triage [facility] [address] [place] [address] Prabha Nice PA Cough 03/26/2024 1:30 PM PARISH VISITOR Office Visit [facility] [address] [place] [address] Prabha Nice PA Anxiety; General Illness/Other (Stoma problem) 03/26/2024 Travel 03/25/2024 Telephone [facility] [address] [place] [address] Prabha Nice PA Medication Management 03/21/2024 12:30 PM PARISH VISITOR Office Visit [facility] [address] [place] [address] [address] [place], AuD Hearing Problem 03/21/2024 Travel 03/21/2024 Refill [facility] [address] [place] [address] Prabha Nice PA Refill Request (Levothyroxine, Hydroxyzine Hcl) 03/19/2024 4:30 PM PARISH VISITOR Office [place] [facility] [address] [phone] Ottoniel Babb MD, PhD CV Valve New (MS, CT MORPH PRIOR, NEEDS EKG,KCCQ12, LETTER SENT, HJK REFERRAL ROBI//PCP: SOFÍA Sheldon/) 03/19/2024 4:00 PM PARISH VISITOR [place] [facility] [address] [facility] [address] [place] [phone] Catalina Charles MD CV Valve New (MS, CT MORPH PRIOR, NEEDS EKG,KCCQ12, LETTER SENT, HJK REFERRAL ROBI//PCP: SOFÍA Sheldon/) 03/19/2024 1:20 PM PARISH VISITOR Orders Only [facility] [address] [place] [phone] Lab 03/19/2024 12:54 PM PARISH VISITOR - 03/19/2024 11:59 PM PARISH VISITOR Hospital Encounter [facility] [address] [place] [address] Mohit Olsen MD Mitral valve stenosis, unspecified etiology; Mitral valve stenosis, non-rheumatic 03/19/2024 Travel 03/12/2024 Refill [facility] [address] [place] [address] Prabha Nice PA Refill Request (Meclizine) 03/06/2024 Orders Only [facility] [address] [place] [phone] Ottoniel Babb MD, PhD <No scans attached> 03/04/2024 Orders Only [facility] Scanner 1 scan: (1-Ord) [facility], CT ANGIO CHEST PE PROTOCOL, 03/04/2024 03/04/2024 Orders Only [facility] Scanner 1 scan: (1-Ord) [facility], HEAD/BRAIN, 03/04/2024 03/04/2024 Orders Only [facility] Scanner 1 scan: (1-Ord) [facility], HEAD W/O CONTRAST , 03/04/2024 03/04/2024 Nurse Triage [facility] [address] [place] [address] Prabha Nice PA Dizziness 03/04/2024 Refill [facility] [address] [place] [address] Prabha Nice PA Refill Request (Hydroxyzine Hcl) from Last 3 Months Immunizations Name Administration Dates Next Due COVID-19 VACCINE SPIKEVAX (M ODERNA 50MCG/0.5ML) 12YO+ PFS 02/13/2024,05/11/2023 COVID-19 vaccine (AfraxisBio NTech 30mcg/0.3mL) PF, MDV 02/22/2021 Influenza A [...] is your housing situation today? 1 08/15/2023 Utilities Answer Date Recorded Do you have trouble paying f or utilities (for example, heat, electricity, water, phone)? 1 08/15/2023 Comments No Sex and Gender Information Value Date Recorded Sex Assigned at Not on file Legal Sex Female 5:18 AM PARISH VISITOR Gender Identity Not on file Sexual Orientation Not on file Obstetrics History Last Filed Vital Signs Vital Sign Reading Time Taken Comments Blood Pressure 125/79 03/26/2024 1:34 PM PARISH VISITOR Pulse 56 03/26/2024 1:34 PM PARISH VISITOR Temperature 37.2 C (98.9 F) 01/12/2024 10:28 AM CDT Respiratory Rate 18 01/16/2024 1:10 PM CDT Oxygen Saturation 92% 03/26/2024 1:34 PM PARISH VISITOR Inhaled Oxygen Concentration - - Weight 90.3 kg (199 lb) 03/26/2024 1:34 PM PARISH VISITOR Height 156 cm (5' 1.42) 03/19/2024 4:28 PM PARISH VISITOR Body Mass Index 37.09 03/19/2024 4:28 PM PARISH VISITOR Plan of Treatment Health Maintenance Due Date Last Done Comments Hepatitis C screening for age 18-79 1963 Zoster (shingles) series for age 50+ (2 of 3) 09/03/2013 07/09/2013 RSV vaccine for adults or (1 - 1-dose 75+ series) 2021 Medicare Wellness for age 65+ 08/15/2024 08/15/2023, 02/22/2021 Depression screening for age 12+ 11/28/2024 11/29/2023, 11/28/2023, 08/18/2023, Additional history exists BMI (ht and wt on same day) for age 18+ 03/19/2025 03/19/2024, 03/19/2024, 08/15/2023, Additional history exists Tetanus booster 12/27/2032 12/27/2022, 03/02, 09/28/2009 DEXA/DXA scan for age 65+ Addressed 2015 (Verified in Care Everywhere or Patient Record) Overridden with the intention of not completing the topic Tdap Completed 12/27/2022, 03/21/2012 Pneumococcal series for age 50+ Completed 08/15/2023, 11/11/2014, 09/28/2009, Additional history exists COVID-19 vaccine series Completed 02/13/20, 05/11/2023, 03/09/2022, Additional history exists Influenza for age 65+ Completed 02/13/2024 , 02/06/2023, 02/17/2022, Additional history exists Procedures Procedure Name Priority Date/Time Associated Diagnosis Comments EKG 12 LEAD Routine 03/19/2024 4:25 PM PARISH VISITOR Nonrheumatic mitral valve stenosis CTA CHEST ABDOMEN PELVIS - DUAL Routine 03/19/2024 2:03 PM PARISH VISITOR Mitral valve stenosis, unspecified etiology Mitral valve stenosis, non-rheumatic CT CARDIAC MORPHOLOGY W DUAL READ Routine 03/19/2024 2:03 PM PARISH VISITOR Mitral valve stenosis, unspecified etiology Mitral valve stenosis, non-rheumatic CREATININE,ISTAT Routine 03/19/2024 1:37 PM PARISH VISITOR ISTAT CHEM 8 Routine 03/19/2024 1:25 PM PARISH VISITOR CBC W PLT NO DIFF Routine 03/19/2024 1:0 7 PM PARISH VISITOR Mitral valve stenosis, unspecified etiology BASIC METABOLIC PANEL Routine 03/19/2024 1:07 PM PARISH VISITOR Mitral valve stenosis, unspecified etiology SCAN-CT INTERPRETATION 12:00 AM PARISH VISITOR SCAN-MRI INTERPRETATION 03/04/2024 12:00 AM PARISH VISITOR SCAN-CT INTERPRETATION 12:00 AM PARISH VISITOR from Last 3 Months Results * EKG 12 LEAD (03/19/2024 4:25 PM PARISH VISITOR) Interpretation Normal sinus rhythm Possible Left atrial enlargement Poor R-wave progression ; consider anterior infarct, lead placement, or normal variant Abnormal ECG Ventricular Rate 83 BPM Atrial Rate 83 BPM P-R Interval 190 ms QRS Duration 90 ms QT 380 ms QTc 446 ms P Staley 59 degrees R Staley -2 degrees T Staley 74 degrees 03/19/2024 4:25 PM PARISH VISITOR 03/20/2024 7:37 PM PARISH VISITOR us Ottoniel Babb MD, PhD EKG ORD Fin al Result * CTA CHEST ABDOMEN PELVIS - DUAL (03/19/2024 2:03 PM PARISH VISITOR) Anatomical Region Laterality Modality Abdomen, CHEST Computed Tomogra phy Impressions 03/20/2024 5:43 PM PARISH VISITOR 1. No acute nonvascular findings in the chest, abdomen, and pelvis. 2. Please refer to separately dictated report for evaluation of cardiovascular structures. Please note that all CT scans at this facility use dose modulation, iterative reconstruction, and/or weight-based dosing when appropriate to reduce radiation dose to as low as reasonably achievable. Dictated by Miguel Barnett MD @ 03/19/2024 6:38:56 PM Narrative 03/20/2024 5:43 PM PARISH VISITOR Images from the original result were not included. STUDY: CT CARDIAC MORPHOLOGY and CTA CHEST ABD PELVIS Study date: 03/19/2024 Indication: 78 year-old female with history of mitral stenosis referred for evaluation of left ventricular and mitral valve anatomy to help determine candidacy for transcatheter mitral valve prosthesis implantation procedure. STUDY PARAMETERS: Scanner: Siemens Definition Force Contrast: 90 ml of Omnipaque 350 Scan protocol: Sequential / spiral / flash Radiation dose length product: 2116 Image quality: Excellent FINDINGS: Mitral valve: Thickened mitral leaflets with restricted leaflet mobility and extensive near-circumferential MAC. Planimetered orifice area = 1.6 cm2. Mitral annulus in systole (35%): Mitral annulus in diastole (0%): TMVR Device Modeling: #29 mm Shiraz 3 (50% atrialized) Skirt ofelia-LVOT Left atrium: No CAMRYN thrombus Coronary arteries: Evaluation limited by cardiac motion - cannot exclude obstructive CAD. Aortic valve: Trileaflet with mild calcification. . Tricuspid valve: Normal morphology. Left ventricle: Normal systolic function with an estimated ejection fraction of 65-70% . Right ventricle: Normal size and systolic function Thoracic aorta: Normal size, no acute morphology. Mild-mod atheromatous disease. Abdominal aorta: Normal caliber. Normal branch arteries. Diffuse non-obstructive atheromatous disease. Ileofemoral vessels: Patent bilaterally with non-obstructive atheromatous disease. Noncardiac findings: Please see separate radiology report. FINAL IMPRESSIONS: Thickened mitral leaflets with restricted leaflet mobility and extensive, near-circumferential MAC. Planimetered orifice area = 1.6 cm2. Mitral annular dimensions in systole and diastole are demonstrated above. When modeling for TMVR using #29 S3 in MAC, there is no residual ofelia-LVOT with 50% device atrialization. If LAMPOON were to be considered, the skirt-neoLVOT remains small at 1.1 cm2 (related to small LV cavity size and prominent septal knuckle). Richard Gomez MD [facility] For Patients: As a result of the Century Cures Act, medical imaging exams and procedure reports are released immediately into your electronic medical record. You may view this report before your referring provider. If you have questions, please contact your health care provider. OVER-READ OVER-READ OVER-READ OVER-READ: DETAILED RADIOLOGY EXTRACARDIAC OVER-READ OF CARDIAC CT 02/05/2024 TECHNIQUE: Please see cardiology report for technical information. 90 cc Omnipaque 350. This exam is being performed in conjunction with the services provided by the [facility] (I). CLINICAL HISTORY: Mitral valve stenosis. Cardiac over-read. FINDINGS: Chest: Thyroid appears diminutive but grossly unremarkable. Calcified mediastinal lymph nodes. Additional enlarged mediastinal lymph node measuring up to 1.2 cm in short axis diameter in the pretracheal station (series 1, image 148). Lung parenchyma demonstrates a mosaic pattern of attenuation which may reflect small-vessel/small airway disease. Benign right lower lobe calcified granuloma. Tree-in-bud reticulonodular opacities most pronounced in the subpleural right upper lobe with nodular components measuring up to 3 mm. Abdomen/Pelvis: Liver: Unremarkable. Gallbladder: Absent. Spleen: Unremarkable. Adrenal glands: Unremarkable. Kidneys: Enhance symmetrically without hydronephrosis. Focal cortical atrophy/scarring involving the anterior interpolar region of the right kidney. Pancreas: Unremarkable. Lymph nodes: No retroperitoneal, mesenteric, inguinal, or pelvic adenopathy by CT criteria. Bowel: Status post subtotal colectomy with right lower quadrant ileostomy. No bowel obstruction. Urinary bladder: Mildly distended but otherwise grossly unremarkable. Reproductive structures: Unremarkable for patient`s age. No abdominal/pelvis ascites or free intraperitoneal air. Musculoskeletal: Visualized osseous structures demonstrate diffuse degenerative changes. us Mohit Olsen MD CT Final Result * CT CARDIAC MORPHOLOGY W DUAL READ (03/19/2024 2:03 PM PARISH VISITOR) Anatomical Region Laterality Modality HEART Computed Tomogra phy Impressions 03/20/2024 5:43 PM PARISH VISITOR 1. No acute nonvascular findings in the visualized chest. 2. Please refer to separately dictated report for evaluation of cardiovascular structures. Please note that all CT scans at this facility use dose modulation, iterative reconstruction, and/or weight-based dosing when appropriate to reduce radiation dose to as low as reasonably achievable. Dictated by Miguel Barnett MD @ 03/19/2024 4:50:10 PM Narrative 03/20/2024 5:43 PM PARISH VISITOR Images from the original result were not included. STUDY: CT CARDIAC MORPHOLOGY and CTA CHEST ABD PELVIS Study date: 03/19/2024 Indication: 78 year-old female with history of mitral stenosis referred for evaluation of left ventricular and mitral valve anatomy to help determine candidacy for transcatheter mitral valve prosthesis implantation procedure. STUDY PARAMETERS: Scanner: Siemens Definition Force Contrast: 90 ml of Omnipaque 350 Scan protocol: Sequential / spiral / flash Radiation dose length product: 2116 Image quality: Excellent FINDINGS: Mitral valve: Thickened mitral leaflets with restricted leaflet mobility and extensive near-circumferential MAC. Planimetered orifice area = 1.6 cm2. Mitral annulus in systole (35%): Mitral annulus in diastole (0%): TMVR Device Modeling: #29 mm Shiraz 3 (50% atrialized) Skirt ofelia-LVOT Left atrium: No CAMRYN thrombus Coronary arteries: Evaluation limited by cardiac motion - cannot exclude obstructive CAD. Aortic valve: Trileaflet with mild calcification. . Tricuspid valve: Normal morphology. Left ventricle: Normal systolic function with an estimated ejection fraction of 65-70% . Right ventricle: Normal size and systolic function Thoracic aorta: Normal size, no acute morphology. Mild-mod atheromatous disease. Abdominal aorta: Normal caliber. Normal branch arteries. Diffuse non-obstructive atheromatous disease. Ileofemoral vessels: Patent bilaterally with non-obstructive atheromatous disease. Noncardiac findings: Please see separate radiology report. FINAL IMPRESSIONS: Thickened mitral leaflets with restricted leaflet mobility and extensive, near-circumferential MAC. Planimetered orifice area = 1.6 cm2. Mitral annular dimensions in systole and diastole are demonstrated above. When modeling for TMVR using #29 S3 in MAC, there is no residual ofelia-LVOT with 50% device atrialization. If LAMPOON were to be considered, the skirt-neoLVOT remains small at 1.1 cm2 (related to small LV cavity size and prominent septal knuckle). Richard Gomez MD [facility] FOR PATIENT: Results are automatically released to your [employer] account once available, in compliance with federal regulations. This means that you may see your results before your provider has had a chance to review them. Please allow 2-3 business days for your provider to comment on the results. For Patients: As a result of the Century Cures Act, medical imaging exams and procedure reports are released immediately into your electronic medical record. You may view this report before your referring provider. If you have questions, please contact your health care provider. OVER-READ OVER-READ OVER-READ OVER-READ: DETAILED RADIOLOGY EXTRACARDIAC OVER-READ OF CARDIAC CT 02/05/2024 TECHNIQUE: Please see cardiology report for technical information. 90 cc Omnipaque 350. This exam is being performed in conjunction with the services provided by the [facility] ([facility]). CLINICAL HISTORY: Mitral valve stenosis. Cardiac over-read. FINDINGS: Visualized Chest: No central evidence of pulmonary embolism. No significant hilar lymphadenopathy. Bronchiectasis with bronchial wall thickening most pronounced in the visualized right middle lobe. Right lower lobe calcified granuloma. No acute findings in the visualized upper abdomen. Postsurgical changes of gastric bypass. Degenerative changes in the spine. Mohit Olsen MD CT Final Result * (ABNORMAL) CREATININE,ISTAT (03/19/2024 1:37 PM PARISH VISITOR) CREATININE, POCT 0.90 0.57 - 1.11 mg/dL 03/20/2024 11:43 AM PARISH VISITOR [facility] [employer] [facility] Comment:Caution: Patients ta billy Hydroxyurea have falsely increased iStat Creatinine results. Verify creatinine results ordering a Creatinine (16106.2) eGFR 66(L) >90 mL/min/1.7 3m2 03/20/2024 11:43 AM PARISH VISITOR [facility] [employer] [facility] Comment:As of 2021, eG FR is calculated by the CKD-EPI creatinine equation without race adjustment. eGFR can be influenced by muscle mass, exercise, and diet. The reported eGFR is an estimation only and is only applicable if the renal function is stable. Blood BLOOD SPECIMEN / Unknown 03/19/2024 1:37 PM PARISH VISITOR 03/20/2024 11:43 AM PARISH VISITOR Mohit Olsen MD CHEMISTRY Final Result [facility] [address] [place] [place] [address], * (ABNORMAL) ISTAT CHEM 8 (03/19/2024 1:25 PM PARISH VISITOR) SODIUM, POCT 137 135 - 145 mmol/L 03/20/2024 11:43 AM PARISH VISITOR [facility] POTASSIUM, POCT 4.6 3.5 - 5.0 mmol/L 03/20/2024 11:43 AM PARISH VISITOR [facility] CHLORIDE, POCT 101 98 - 107 mmol/L 03/20/2024 11:43 AM PARISH VISITOR [facility] CO2,TOTAL, POCT 27 21 - 31 mmol/L 03/20/2024 11:43 AM PARISH VISITOR [facility] ANION GAP, POCT 15 5 - 18 4 11:43 AM PARISH VISITOR [facility] GLUCOSE, POCT 98 70 - 99 mg/dL 03/20/2024 11:43 AM PARISH VISITOR [facility] BUN, POCT 16 8 - 25 mg/dL 03/20/2024 11:43 AM PARISH VISITOR [facility] BUN/CREAT RATIO, POCT 16 10 - 20 03/20/2024 11:43 AM PARISH [facility] eGFR 58(L) >90 mL/min/1.7 3m2 03/20/2024 11:43 AM [facility] Comment:As of 2021, eG FR is calculated by the CKD-EPI creatinine equation without race adjustment. eGFR can be influenced by muscle mass, exercise, and diet. The reported eGFR is an estimation only and is only applicable if the renal function is stable. HEMATOCRIT, POCT 39.0 33.0 - 51.0 % 03/20/2024 11:43 AM PARISH VISITOR [facility] HEMOGLOBIN, POCT 13.3 12.0 - 16.0 g/dL 03/20/2024 11:43 AM [facility] Blood BLOOD SPECIMEN / Unknown 03/19/2024 1:25 PM PARISH VISITOR 03/20/2024 11:43 AM PARISH VISITOR Mohit Olsen MD CHEMISTRY Final Result [facility] [address] [place] [address], * (ABNORMAL) CBC W PLT NO DIFF (03/19/2024 1:07 PM PARISH VISITOR) WHITE BLOOD COUNT 7.3 4.5 - 11.0 thou/cu mm 03/19/2024 1:24 PM PARISH VISITOR [facility] RED BLOOD COUNT 4.05 4.00 - 5.20 mil/cu mm 03/19/2024 1:24 PM PARISH VISITOR [facility] HEMOGLOBIN 12.0 12.0 - 16.0 g/dL 03/19/2024 1:24 PM PARISH VISITOR [facility] HEMATOCRIT 37.7 33.0 - 51.0 % 03/19/2024 1:24 PM PARISH VISITOR [facility] MCV 93 80 - 100 fL 03/19/2024 1:24 PM PARISH VISITOR [facility] MCH 29.6 26.0 - 34.0 pg 03/19/2024 1:24 PM PARISH VISITOR [facility] MCHC 31.8(L) 32.0 - 36.0 g/dL 03/19/2024 1:24 PM [facility] RDW 13.5 11.5 - 15.5 % 03/19/2024 1:24 PM [facility] PLATELET COUNT 322 140 - 440 thou/cu mm 03/19/2024 1:24 PM [facility] MPV 9.1 6.5 - 11.0 fL 03/19/2024 1:24 PM PARISH VISITOR [facility] NRBC 0.0 % 03/19/2024 1:24 PM [facility] ABS NRBC 0.0 thou /cu mm 03/19/2024 1:24 PM [facility] Blood BLOOD SPECIMEN / Unknown Venipuncture / Unknown 03/19/2024 1:07 PM PARISH VISITOR 03/19/2024 1:14 PM PARISH VISITOR us Ottoniel Babb MD, PhD HEMATOLOGY Fin al Result [facility] [address] [place] [place] [address], * (ABNORMAL) BASIC METABOLIC PANEL (03/19/2024 1:07 PM PARISH VISITOR) SODIUM 138 136 - 145 mmol/L 03/19/2024 2:01 PM PARISH VISITOR [facility] POTASSIUM 03/19/2024 2:01 PM PAR[facility] VISITOR [facility] Comment:Canceled- Specimen H emolyzed, Disposition Per Policy CHLORIDE 101 98 - 107 mmol/L 03/19/2024 2:01 PM [facility] CO2,TOTAL 27 22 - 29 mmol/L 03/19/2024 2:01 PM [facility] ANION GAP 10 5 - 18 03/19/2024 2:01 PM [facility] GLUCOSE 109(H) 70 - 99 mg/dL 03/19/2024 2:01 PM [facility] CALCIUM 9.5 8.8 - 10.4 mg/dL 03/19/2024 2:01 PM [facility] Comment: Reference ranges for this test were updated on 03/05/2024 to reflect our healthy population more accurately. Reference range changes are not retroactively applied to results, but previous results using the same methodology can be interpreted in the context of the new reference range. BUN 15 8 - 23 mg/dL 03/19/2024 2:[address] [facility] CREATININE 0.92(H) 0.50 - 0.90 mg/dL 03/19/2024 2:01 PM [facility] BUN/CREAT RATIO 16 10 - 20 2:[address] [facility] eGFR 64(L) >90 mL/min/1. 73m2 03/19/2024 2:01 PM [facility] Comment:As of 2021, eG FR is calculated by the CKD-EPI creatinine equation without race adjustment. eGFR can be influenced by muscle mass, exercise, and diet. The reported eGFR is an estimation only and is only applicable if the renal function is stable. Blood BLOOD SPECIMEN / Unknown Venipuncture / Unknown 03/19/2024 1:07 PM PARISH VISITOR 03/19/2024 1:14 PM PARISH VISITOR us Ottoniel Babb MD, PhD CHEMISTRY Fin al Result [facility] [address] [place] [address], [place] * SCAN-MRI INTERPRETATION (03/04/2024 12:00 AM PARISH VISITOR) Anatomical Region Laterality Modality Other us Scanner OTHER Final Result * SCAN-CT INTERPRETATION (03/04/2024 12:00 AM PARISH VISITOR) Only the most recent of2 resultswithin the time period is included. Anatomical Region Laterality Modality Other us Scanner OTHER Final Result from Last 3 Months Insurance [id number] [facility] [place] [address] [facility] MR/MS[facility] MEDICARE PART A HB ONLY Advance Directives Documents on File Type Date Recorded Patient [employer] POLST 07/18/2023 * Full Code (Latest Code Status on File) Date Activated Date Inactivated Comments 01/16/2024 11:27 AM 01/17/2024 2:07 AM Question Answer Comments Code Status Discussion: Reviewed Preferences Care Teams Engine Cleaner Relationship Specialty Start Date End Date Prabha Nice PA [address] [place] [address] PCP - General Physician Bow Rehairer 05/18/23
--- NOTE | 2024-05-25 05:03 | ED_ITS ---
HPI - General Adult General Chief complaint: Abdominal Pain Stated complaint: abdominal pain Time Seen by Provider: 05/25/24 04:53 History of Present Illness HPI narrative: abd pain across abd, denies nausea or vomiting. has ostomy, states small liquid with solids but not much output. states this pain feels same as her last obstructions. 78-year-old woman presenting to the emergency department via EMS with complaint of abdominal pain. She is not having any nausea. Went to bed at 10:00 p.m. about 7 hours ago and woke up an hour later with pain. Notes a history of small-bowel obstructions and this feels similar. She does have an ileostomy. No fever. Requesting something to moisten her lips. Related Data Home Medications ?Medication ?Instructions ?Recorded ?Confirmed diclofenac sodium 1 % topical gel 4 g topical QID PRN pain 12/27/22 05/25/24 fluticasone propionate 50 2 spray intranasal DAILY PRN 12/27/22 05/25/24 mcg/actuation nasal spray,suspension melatonin 3 mg tablet 4.5 mg PO HS insomnia 12/27/22 05/25/24 multivitamin with minerals-folic 2 tab PO DAILY@1200 12/27/22 05/25/24 acid 80 mcg chewable tablet (Centrum Adult 50 Plus) omeprazole 40 mg capsule,delayed 40 mg PO DAILY 12/27/22 05/25/24 release venlafaxine 75 mg tablet 75 mg PO TID 12/27/22 05/25/24 acetaminophen 500 mg tablet 1,000 mg PO 3XD 03/22/23 05/25/24 cholecalciferol (vitamin D3) 50 50 mcg PO DAILY@1200 03/22/23 05/25/24 mcg (2,000 unit) capsule furosemide 20 mg tablet 20 mg PO MOFR 03/22/23 05/25/24 cetirizine 5 mg tablet 10 mg PO Q48H 09/15/23 05/25/24 hydrochlorothiazide 12.5 mg tablet 12.5 mg PO QAM 09/15/23 05/25/24 lactase 3,000 unit tablet 3,000 unit PO QID PRN 09/15/23 05/25/24 losartan 50 mg tablet 100 mg PO HS 09/15/23 05/25/24 metoprolol succinate 50 mg 50 mg PO QDAY 10/12/23 05/25/24 tablet,extended release 24 hr hydroxyzine HCl 25 mg tablet 25 mg PO Q6H PRN 05/25/24 05/25/24 Previous Rx's ?Medication ?Instructions ?Recorded bupropion HCl 100 mg tablet 100 mg PO BID #180 tabs 02/06/23 gabapentin 600 mg tablet 900 mg (1.5 x 600 mg) PO TID #405 02/06/23 tabs levothyroxine 137 mcg tablet 137 mcg PO DAILY #90 tabs 02/06/23 nystatin 100,000 unit/gram topical 1 applic topical TID #15 grams 09/15/23 powder meclizine 12.5 mg tablet 12.5 mg PO TID PRN #20 tabs 03/04/24 Allergies Allergy/AdvReac Type Severity Reaction Status Date / Time droperidol Allergy Unknown Verified 05/25/24 06:29 metoclopramide (From Reglan) Allergy Unknown Verified 05/25/24 06:29 Polyglactin Allergy Unknown Verified 05/25/24 06:29 Sulfa (Sulfonamide Allergy Unknown Verified 05/25/24 06:29 Antibiotics) Reglan Allergy Unknown Uncoded 05/25/24 06:29 Review of Systems Status of ROS: Reports: 6 or more systems reviewed and unremarkable except as noted in History and below [facility] Medical History Small bowel obstruction ?K56.609 - Unspecified intestinal obstruction, unspecified as to partial versus complete obstruction (ICD-10) POLST (Physician Orders for Life-Sustaining Treatment) (~08/26/21) ?Z78.9 - Other specified health status (ICD-10) History of renal stone ?Z87.442 - Personal history of urinary calculi (ICD-10) History of DVT (deep vein thrombosis) ?Z86.718 - Personal history of other venous thrombosis and embolism (ICD-10) History of ischemic bowel disease (~2005) ?Z87.19 - Personal history of other diseases of the digestive system (ICD-10) Bleeding gastric varices (~2012) ?I86.4 - Gastric varices (ICD-10) Surgical History S/P bunionectomy ?Z98.890 - Other specified postprocedural states (ICD-10) S/P repair of ventral hernia ?Z98.890 - Other specified postprocedural states (ICD-10) ?Z87.19 - Personal history of other diseases of the digestive system (ICD-10) H/O thumb surgery ?Z98.890 - Other specified postprocedural states (ICD-10) S/P carpal tunnel release ?Z98.890 - Other specified postprocedural states (ICD-10) Status post bilateral knee replacements (~2015) ?Z96.653 - Presence of artificial knee joint, bilateral (ICD-10) S/P colectomy ?Z90.49 - Acquired absence of other specified parts of digestive tract (ICD- 10) S/P gastric bypass ?Z98.84 - Bariatric surgery status (ICD-10) Social History What is your current living situation?: I presently have a place to live Problems where you live: no known problems In the past 12 months, utilities in danger of being shut off: no In past 12 months, lack of transportation kept you from medical appts, meetings, work, or getting things needed for daily living: no In the past 12 mos, have been you worried that your food would run out before you had money to buy more?: never true In the past 12 mos, the food you bought just didn't last and you didn't have money to buy more?: sometimes true Smoking Status: Never smoker Do you use any of these nicotine containing products: None Second hand tobacco smoke exposure: No How often do you have a drink containing alcohol: monthly or less How many standard drinks containing alcohol do you have on a typical day: 1 or 2 AUDIT-C Alcohol total score: 1 Non-prescribed substance use: denies use How often does anyone, including family, friends and others, physically hurt you : never How often does anyone, including family, friends and others, insult or talk down to you: never How often does anyone, including family, friends and others, threaten you with harm: never How often does anyone, including family, friends and others, scream or curse at you: never service: No Health Related Social Needs: food insecurity (Z59.41) Exam Narrative: Exam Narrative: Pleasant. Edentulous. Does appear to be uncomfortable. Moving all extremities without difficulty. Well-perfused. No lower extremity edema. Abdomen with extensive surgical scars. Right-sided ostomy with partially digested food/stool. There is no blood. There is no periosteal swelling or inflammation. Abdomen with present bowel sounds and tympanitic is diffusely q uite tender. Heart in regular rate and rhythm with 2/6 systolic crescendo murmur across precordium. Lungs appear to be clear. Const: Vital Signs, click to edit/add: Vital Signs - 24 hr 05/25/24 04:55 05/25/24 05:15 05/25/24 05:32 Temperature 98.0 F Pulse Rate 75 75 Pulse Rate [Pulse Oximeter] 74 Respiratory Rate 18 Blood Pressure Blood Pressure [Ri ght Upper Arm] 143/66 H Pulse Oximetry 98 95 93 Oxygen Delivery Me thod Room Air Oxygen Flow Rate 05/25/24 05:45 05/25/24 06:00 05/25/24 06:00 Temperature Pulse Rate 72 68 Pulse Rate [Pulse Oximeter] Respiratory Rate Blood Pressure Blood Pressure [Ri ght Upper Arm] Pulse Oximetry 96 95 100 Oxygen Delivery Me thod Oxygen Flow Rate 05/25/24 06:00 05/25/24 06:03 05/25/24 06:09 Temperature Pulse Rate 65 69 Pulse Rate [Pulse Oximeter] Respiratory Rate Blood Pressure 128/42 L Blood Pressure [Ri ght Upper Arm] Pulse Oximetry 100 93 87 L Oxygen Delivery Me thod Nasal Cannula Oxygen Flow Rate 2 05/25/24 06:29 05/25/24 06:30 05/25/24 06:31 Temperature Pulse Rate 82 83 83 Pulse Rate [Pulse Oximeter] Respiratory Rate 14 Blood Pressure 196/82 H Blood Pressure [Ri ght Upper Arm] Pulse Oximetry 100 99 99 Oxygen Delivery Me thod Nasal Cannula Oxygen Flow Rate 2 05/25/24 06:45 Temperature Pulse Rate 82 Pulse Rate [Pulse Oximeter] Respiratory Rate Blood Pressure Blood Pressure [Ri ght Upper Arm] Pulse Oximetry 100 Oxygen Delivery Me thod Oxygen Flow Rate Documenting provider has reviewed patient's vital signs: yes Course Vital Signs Vital signs: Initial Vital Signs Temperature 98.0 F 05/25/24 04:55 Temperature Source Temporal Artery Scan 05/25/24 04:55 Pulse Rate 74 05/25/24 04:55 Respiratory Rate 18 05/25/24 04:55 Blood Pressure 143/66 H 05/25/24 04:55 Blood Pressure Mean 91 05/25/24 04:55 Blood Pressure Position Sitting 05/25/24 04:55 Pulse Oximetry 98 05/25/24 04:55 Oxygen Delivery Method Room Air 05/25/24 04:55 Vital Signs Temperature 98.0 F 05/25/24 04:55 Pulse Rate 74 05/25/24 04:55 Respiratory Rate 18 05/25/24 04:55 Blood Pressure 143/66 H 05/25/24 04:55 Pulse Oximetry 98 05/25/24 04:55 Oxygen Delivery Method Room Air 05/25/24 04:55 Temperature 98.0 F 05/25/24 04:55 Pulse Rate 82 05/25/24 06:45 Respiratory Rate 14 05/25/24 06:30 Blood Pressure 196/82 H 05/25/24 06:30 Pulse Oximetry 100 05/25/24 06:45 Oxygen Delivery Method Nasal Cannula 05/25/24 06:30 Oxygen Flow Rate 2 05/25/24 06:30 Medications Administered Medications: Discontinued Medications Generic Name Dose Route Start Last Admin Trade Name Freq PRN Reason Stop Dose Admin Fentanyl 50 mcg 05/25/24 06:01 05/25/24 06:15 Fentanyl 100 Mcg/2 Ml Inj IVP 05/25/24 06:02 50 mcg ONCE ONE Administration Hydromorphone HCl 0.5 mg 05/25/24 05:30 05/25/24 05:32 Hydromorphone 0.5 Mg/0.5 Ml Inj IVP 05/25/24 05:31 0.5 mg ONCE ONE Administration Medical Decision Making MDM Narrative Medical decision making narrative: Appears to have had relatively recent stomal output. Certainly may be evolving a bowel obstruction. Abdomen is quite tender diffusely and with history I think warrants imaging. It could be developing enteritis otherwise. Does not appear to have symptoms otherwise of allergic reaction. Symptoms I think are too diffuse for typical diverticulitis or mesenteric adenitis. Vascular disruption? Is having a good deal of pain. Dosing Dilaudid. Normal saline IV hydration. White count is mildly elevated at 12.6. IV contrasted CT abdomen and pelvis independently reviewed by me shows diffuse areas of what looks to be a small-bowel edema and air-fluid levels and I would suspect small bowel obstruction. No nausea or vomiting and without large stomach (though in the setting of gastric bypass history) I think can defer NG at this point For increased pain again is given some fentanyl. Opiate dosing necessitates some oxygen support via nasal cannula Radiology over-read below Indication: Diffuse abdominal pain, concern for bowel obstruction. Technique: CT of the abdomen and pelvis was performed following the administration of 89 mL of Isovue 370. Comparison: 05/24/2023. Findings: Visualized lung bases: Calcified granuloma in the right lower lobe. Mitral annular calcifications. Mild atherosclerotic coronary artery calcifications. Liver: Mild hepatic steatosis. Post cholecystectomy. Similar mild prominence of the intrahepatic bile ducts. Common bile duct is normal in diameter. Pancreas: Unremarkable. Spleen: Unremarkable. Adrenals: Unremarkable. Kidneys: Unchanged calcification along the anterior interpolar right kidney. Too small to characterize hypodensity within the right kidney. No hydronephrosis. Aorta/IVC: Moderate atherosclerotic aortic calcifications without aneurysmal dilation. Lymph nodes: No lymphadenopathy. Bowel: Postoperative changes following colectomy with right lower quadrant end ileostomy. There are multiple dilated small bowel loops throughout the abdomen and pelvis. Transition point is along the anterior abdominal wall at the patient`s ileostomy. Status post Iam-en-Y gastric bypass. No intraperitoneal free air or free fluid. Stool is seen within the rectal stump. Pelvis: Unremarkable. Bones/body wall: Ventral abdominal wall laxity. Osseous demineralization. Multilevel degenerative disc disease. Impression: 1. Status post colectomy and right lower quadrant end ileostomy. Small bowel obstruction with transition point along the anterior abdominal wall at the ileostomy site. 2. Hepatic steatosis. 3. Cholecystectomy with similar mild prominence of the intrahepatic bile ducts. Please note that all CT scans at this facility use dose modulation, iterative reconstruction, and/or weight-based dosing when appropriate to reduce radiation dose to as low as reasonably achievable. Dictated by Kavita Herrera MD @ 05/25/2024 7:23:26 AM I do think demonstrated degree of discomfort will require admission for bowel rest IV hydration and pain management. Alerted General surgery. Calling hospitalist for admission. Medical Records Medical records reviewed: Yes I reviewed the patient's medical records Lab Data Lab results reviewed: Yes I reviewed the patient's lab results Labs: Lab Results 01/25/25 01/25/25 Range/Units 05:45 05:48 WBC 12.55 H (4.50-11.00) K/uL RBC 4.36 (4.00-5.20) m/uL Hgb 12.7 (12.0-16.0) gm/dL Hct 39.3 (33.0-51.0) % MCV 90 (80-100) fL MCH 29 (26-34) pg MCHC 32 (32-36) gm/dL RDW Coeff of Deedee 13.8 (11.5-15.5) % Plt Count 276 (140-440) K/uL Neut % (Auto) 84.7 H (42.0-72.0) % Lymph % (Auto) 8.8 L (20-44) % Jenkins % (Auto) 5.3 (0.0-11.0) % Eos % (Auto) 0.0 (0.0-7.0) % Baso % (Auto) 0.2 (0.0-3.0) % Neut # (Auto) 10.60 H (1.7-7.0) K/uL Lymph # (Auto) 1.10 (0.90-2.90) K/uL Jenkins # (Auto) 0.70 (0.00-0.90) K/UL Eos # (Auto) 0.00 (0.00-0.50) K/uL Baso # (Auto) 0.00 (0.00-0.30) K/uL Abs Immat Gran (auto) 0.10 (0.00-0.30) K/uL Imm/Tot Granulo (auto) 1.0 % Sodium 137 (135-149) mmol/L Potassium 4.8 (3.6-5.1) mmol/L Chloride 106 (96-114) mmol/L Carbon Dioxide 22 (20-32) mmol/L Anion Gap 9 (7-15) mEq/L BUN 23 (7-30) mg/dL Creatinine 0.8 (0.5-1.5) mg/dL Estimated Creat Clear 38.97 Estimated GFR 76 ml/min Glucose 135 H (60-115) mg/dL Calcium 9.4 (8.4-10.6) mg/dL POC Creatinine 0.9 (0.6-1.3) mg/dl Discharge Plan Discharge Clinical Impression: Small bowel obstruction, Abdominal pain Patient Disposition: Admitted As Observation Condition: Stable
--- NOTE | 2024-05-25 05:12 | CRLHL7_ITS ---
For Patients: As a result of the Century Cures Act, medical imaging exams and procedure reports are released immediately into your electronic medical record. You may view this report before your referring provider. If you have questions, please contact your health care provider. Indication: Diffuse abdominal pain, concern for bowel obstruction. Technique: CT of the abdomen and pelvis was performed following the administration of 89 mL of Isovue 370. Comparison: 05/24/2023. Findings: Visualized lung bases: Calcified granuloma in the right lower lobe. Mitral annular calcifications. Mild atherosclerotic coronary artery calcifications. Liver: Mild hepatic steatosis. Post cholecystectomy. Similar mild prominence of the intrahepatic bile ducts. Common bile duct is normal in diameter. Pancreas: Unremarkable. Spleen: Unremarkable. Adrenals: Unremarkable. Kidneys: Unchanged calcification along the anterior interpolar right kidney. Too small to characterize hypodensity within the right kidney. No hydronephrosis. Aorta/IVC: Moderate atherosclerotic aortic calcifications without aneurysmal dilation. Lymph nodes: No lymphadenopathy. Bowel: Postoperative changes following colectomy with right lower quadrant end ileostomy. There are multiple dilated small bowel loops throughout the abdomen and pelvis. Transition point is along the anterior abdominal wall at the patient`s ileostomy. Status post Iam-en-Y gastric bypass. No intraperitoneal free air or free fluid. Stool is seen within the rectal stump. Pelvis: Unremarkable. Bones/body wall: Ventral abdominal wall laxity. Osseous demineralization. Multilevel degenerative disc disease. Impression: 1. Status post colectomy and right lower quadrant end ileostomy. Small bowel obstruction with transition point along the anterior abdominal wall at the ileostomy site. 2. Hepatic steatosis. 3. Cholecystectomy with similar mild prominence of the intrahepatic bile ducts. Please note that all CT scans at this facility use dose modulation, iterative reconstruction, and/or weight-based dosing when appropriate to reduce radiation dose to as low as reasonably achievable. Dictated by Kavita Herrera MD @ 05/25/2024 7:23:26 AM (Electronically Signed)
--- OUTSIDE RECORDS SUMMARY | 2024-05-25 05:28 | XMS_ITS | Referral Summary ---
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 Gender Identity Not on file Sexual Orientation Not on file Last Filed Vital Signs Vital Sign Reading Time Taken Comments Blood Pressure 155/66 03/27/2023 8:11 AM ELECTRIC MOTORS SALESPERSON Pulse 90 03/27/2023 8:11 AM ELECTRIC MOTORS SALESPERSON Temperature 36.5 C (97.7 F) 03/27/2023 8:11 AM ELECTRIC MOTORS SALESPERSON Respiratory Rate 18 03/27/2023 8:11 AM ELECTRIC MOTORS SALESPERSON Oxygen Saturation 93% 03/27/2023 8:11 AM ELECTRIC MOTORS SALESPERSON Inhaled Oxygen Concentration - - Weight 98.3 kg (216 lb 11.4 oz) 03/22/2023 3:57 PM ELECTRIC MOTORS SALESPERSON Height 160 cm (5' 3) 03/22/2023 5:00 PM ELECTRIC MOTORS SALESPERSON Body Mass Index 38.39 03/22/2023 3:57 PM ELECTRIC MOTORS SALESPERSON Plan of Treatment Not on file Procedures Procedure Name Priority Date/Time Associated Diagnosis Comments BASIC METABOLIC PANEL Routine 03/27/2023 6:31 AM ELECTRIC MOTORS SALESPERSON from Last 3 Months or Most Recently Relevant to Health Maintenance Results * (ABNORMAL) Basic metabolic panel (03/27/2023 6:31 AM ELECTRIC MOTORS SALESPERSON) Sodium 134(L) 135 - 145 mmol/L 03/27/2023 6:59 AM ELECTRIC MOTORS SALESPERSON [facility] Comment:Reference intervals for this test were updated on 01/24/2023 to more accurately reflect our healthy population. There may be differences in the flagging of prior results with similar values performed with this method. Interpretation of those prior results can be made in the context of the updated reference intervals. Potassium 4.1 3.4 - 5.3 mmol/L 03/27/2023 6:59 AM [facility] Chloride 101 98 - 107 mmol/L 03/27/2023 6:59 AM [facility] Carbon Dioxide (CO2) 24 22 - 29 mmol/L 03/27/2023 6:59 AM [facility] Anion Gap 9 7 - 15 mmol/L 03/27/2023 6:59 AM ELECTRIC MOTORS SALESPERSON LABORATORY Urea Nitrogen 15.5 8.0 - 23.0 mg/dL 03/27/2023 6:59 AM [facility] Creatinine 0.84 0.51 - 0.95 mg/dL 03/27/2023 6:59 AM [facility] GFR Estimate 72 >60 mL/min/1. 73m2 03/27/2023 6:59 AM [facility] Calcium 8.5(L) 8.8 - 10.2 mg/dL 03/27/2023 6:59 AM [facility] Glucose 102(H) 70 - 99 mg/dL 03/27/2023 6:59 AM [facility] Blood STRUCTURE OF RIGHT UPPER LIMB / Unknown Venipuncture / Unknown 03/27/2023 6:31 AM ELECTRIC MOTORS SALESPERSON 03/27/2023 6:39 AM ELECTRIC MOTORS SALESPERSON us Bernice Stearns MD LAB - BLOOD ORDERABLES nal Result LABORATORY [facility] [address] Lab (1st floor, no room number) [place] [address], [facility] [phone] from Last 3 Months or Most Recently Relevant to Health Maintenance Insurance [employer] MEDICARE ADVANTAGE [employer] MEDICARE ADVANTAGE Advance Directives For more information, please contact: [phone] * Full Code (Latest Code Status on File) Date Activated Date Inactivated Comments 03/22/2023 6:21 PM 03/27/2023 3:49 PM All basic and advanced life-sustaining interventions are performed as appropriate Question Answer Comments Code status determined by: Discussion with radhae nt/ legal decision maker Care Teams Miller Wood Flour Relationship Specialty Start Date End Date Juan Rojas MD PCP - General Family Medicine 03/23/23
--- OUTSIDE RECORDS SUMMARY | 2024-05-25 05:28 | XMS_ITS | Clinical Summary ---
Author Organization [employer] [facility] Address [place], [place] [address] Care Team Providers Care Meatman Name Role Phone Prabha Nice Primary Care Provider [phone] Allergies Active Allergy Reactions Criticality Noted Date Comments Blood-Group Specific Substance Other - Describe In Comment Field 02/13/2024 Patient has an anti-Hallock antibody. Blood products may be delayed. Draw patient 24 hours prior to transfusion. For [employer] testing, draw one red top and two [...] cm. No endoscopic evidence of reflux or Bemreo's. The pouch measured 4-5 cm in size [...] Department Care Team Description 05/03/2024 11:10 AM TEXTILE ENGRAVER Phone Office Visit [facility] [address] [place] [address] Prabha Nice PA Foot Pain/problem (Constant burning pain in feet for last two weeks); Phone Visit (No vitals taken) 05/03/2024 Travel 05/02/2024 Telephone [facility] [address] [place] [address] Prabha Nice PA Questions 04/18/2024 Refill [facility] [address] [place] [address] Prabha Nice PA Refill Request (meclizine (ANTIVERT) 12.5 mg tablet /) 04/16/2024 Telephone [facility] [address] [phone] Ana Anthony RN Heart Problem (Mitral Valve Disease) 04/10/2024 Nurse Triage [facility] [address] [place] [address] Prabha iNce PA Cough 03/26/2024 1:30 PM TEXTILE ENGRAVER Office Visit [facility] [address] [place] [address] Prabha Nice PA Anxiety; General Illness/Other (Stoma problem) 03/26/2024 Travel 03/25/2024 Telephone [facility] [address] [place] [address] Prabha Nice PA Medication Management 03/21/2024 12:30 PM TEXTILE ENGRAVER Office Visit [facility] [address] [place] [address] vA Hoover, AuD Hearing Problem 03/21/2024 Travel 03/21/2024 Refill [facility] [address] [place] [address] Prabha Nice PA Refill Request (Levothyroxine, Hydroxyzine Hcl) 03/19/2024 4:30 PM TEXTILE ENGRAVER [place] [facility] [address] [address] Ottoniel Babb MD, PhD CV Valve New (MS, CT MORPH PRIOR, NEEDS EKG,KCCQ12, LETTER SENT, HJK REFERRAL ROBI//PCP: SOFÍA Sheldon/) 03/19/2024 4:00 PM TEXTILE ENGRAVER Office [place] [facility] [address] [facility] [address] [place] [phone] Catalina Charles MD CV Valve New (MS, CT MORPH PRIOR, NEEDS EKG,KCCQ12, LETTER SENT, HJK REFERRAL ROBI//PCP: SOFÍA Sheldon/) 03/19/2024 1:20 PM TEXTILE ENGRAVER Orders Only [facility] [place] [address] [place] [address] Lab 03/19/2024 12:54 PM TEXTILE ENGRAVER - 03/19/2024 11:59 PM TEXTILE ENGRAVER Hospital Encounter [facility] [address] [place] [address] Mohit Olsen MD Mitral valve stenosis, unspecified etiology; Mitral valve stenosis, non-rheumatic 03/19/2024 Travel 03/12/2024 Refill [facility] [address] [place] [address] Prabha Nice PA Refill Request (Meclizine) 03/06/2024 Orders Only [facility] [address] [place] [address] Ottoniel Babb MD, PhD <No scans attached> 03/04/2024 Orders Only [facility] Scanner 1 scan: (1-Ord) [facility], CT ANGIO CHEST PE PROTOCOL, 03/04/2024 03/04/2024 Orders Only [facility] Scanner 1 scan: (1-Ord) [facility], HEAD/BRAIN, 03/04/2024 03/04/2024 Orders Only [facility] Scanner 1 scan: (1-Ord) [facility], HEAD W/O CONTRAST , 03/04/2024 03/04/2024 Nurse Triage [facility] [address] [place] [address] Prabha Nice PA Dizziness 03/04/2024 Refill [facility] [address] [place] [address] Prabha Nice PA Refill Request (Hydroxyzine Hcl) from Last 3 Months Immunizations Name Administration Dates Next Due COVID-19 VACCINE SPIKEVAX (M ODERNA 50MCG/0.5ML) 12YO+ PFS 02/13/2024,05/11/2023 COVID-19 vaccine (Peers App[employer] NTech 30mcg/0.3mL) PF, MDV 02/22/2021 Influenza A [...] on file Legal Sex Female 5:18 AM TEXTILE ENGRAVER Gender Identity Not on file Sexual Orientation Not on file Obstetrics History Last Filed Vital Signs Vital Sign Reading Time Taken Comments Blood Pressure 125/79 03/26/2024 1:34 PM TEXTILE ENGRAVER Pulse 56 03/26/2024 1:34 PM TEXTILE ENGRAVER Temperature 37.2 C (98.9 F) 01/12/2024 10:28 AM CDT Respiratory Rate 18 01/16/2024 1:10 PM CDT Oxygen Saturation 92% 03/26/2024 1:34 PM TEXTILE ENGRAVER Inhaled Oxygen Concentration - - Weight 90.3 kg (199 lb) 03/26/2024 1:34 PM TEXTILE ENGRAVER Height 156 cm (5' 1.42) 03/19/2024 4:28 PM TEXTILE ENGRAVER Body Mass Index 37.09 03/19/2024 4:28 PM TEXTILE ENGRAVER Plan of Treatment Health Maintenance Due Date [...] EKG 12 LEAD Routine 03/19/2024 4:25 PM TEXTILE ENGRAVER Nonrheumatic mitral valve stenosis CTA CHEST ABDOMEN PELVIS - DUAL Routine 03/19/2024 2:03 PM TEXTILE ENGRAVER Mitral valve stenosis, unspecified etiology Mitral valve stenosis, non-rheumatic CT CARDIAC MORPHOLOGY W DUAL READ Routine 03/19/2024 2:03 PM TEXTILE ENGRAVER Mitral valve stenosis, unspecified etiology Mitral valve stenosis, non-rheumatic CREATININE,ISTAT Routine 03/19/2024 1:37 PM TEXTILE ENGRAVER ISTAT CHEM 8 Routine 03/19/2024 1:25 PM TEXTILE ENGRAVER CBC W PLT NO DIFF Routine 03/19/2024 1:0 7 PM TEXTILE ENGRAVER Mitral valve stenosis, unspecified etiology BASIC METABOLIC PANEL Routine 03/19/2024 1:07 PM TEXTILE ENGRAVER Mitral valve stenosis, unspecified etiology SCAN-CT INTERPRETATION 12:00 AM TEXTILE ENGRAVER SCAN-MRI INTERPRETATION 03/04/2024 12:00 AM TEXTILE ENGRAVER SCAN-CT INTERPRETATION 12:00 AM TEXTILE ENGRAVER from Last 3 Months Results * EKG 12 LEAD (03/19/2024 4:25 PM TEXTILE ENGRAVER) Interpretation Normal sinus rhythm Possible Left atrial enlargement Poor R-wave progression ; consider anterior infarct, lead placement, or normal variant Abnormal ECG Ventricular Rate 83 BPM Atrial Rate 83 BPM P-R Interval 190 ms QRS Duration 90 ms QT 380 ms QTc 446 ms P [place] 59 degrees R [place] -2 degrees T [place] 74 degrees 03/19/2024 4:25 PM TEXTILE ENGRAVER 03/20/2024 7:37 PM TEXTILE ENGRAVER us Ottoniel Babb MD, PhD EKG ORD Fin al Result * CTA CHEST ABDOMEN PELVIS - DUAL (03/19/2024 2:03 PM TEXTILE ENGRAVER) Anatomical Region Laterality Modality Abdomen, CHEST Computed Tomogra phy Impressions 03/20/2024 5:43 PM TEXTILE ENGRAVER 1. No acute nonvascular findings in the [...] 03/19/2024 6:38:56 PM Narrative 03/20/2024 5:43 PM TEXTILE ENGRAVER Images from the original result were not [...] and prominent septal knuckle). Richard Gomez MD [facility] For Patients: As a result of the [...] conjunction with the services provided by the [facility] [place] (I). CLINICAL HISTORY: Mitral valve stenosis. Cardiac [...] MORPHOLOGY W DUAL READ (03/19/2024 2:03 PM TEXTILE ENGRAVER) Anatomical Region Laterality Modality HEART Computed Tomogra phy Impressions 03/20/2024 5:43 PM TEXTILE ENGRAVER 1. No acute nonvascular findings in the visualized chest. 2. Please refer to separately dictated report for evaluation of cardiovascular structures. Please note that all CT scans at this facility use dose modulation, iterative reconstruction, and/or weight-based dosing when appropriate to reduce radiation dose to as low as reasonably achievable. Dictated by Miguel Barnett MD @ 03/19/2024 4:50:10 PM Narrative 03/20/2024 5:43 PM TEXTILE ENGRAVER Images from the original result were not [...] and prominent septal knuckle). Richard Gomez MD [facility] FOR PATIENT: Results are automatically released to your [employer] account once available, in compliance with federal [...] conjunction with the services provided by the [facility] [place] ([facility]). CLINICAL HISTORY: Mitral valve stenosis. Cardiac over-read. [...] Result * (ABNORMAL) CREATININE,ISTAT (03/19/2024 1:37 PM TEXTILE ENGRAVER) CREATININE, POCT 0.90 0.57 - 1.11 mg/dL 03/20/2024 11:43 AM TEXTILE ENGRAVER [facility] [employer] [facility] Comment:Caution: Patients ta billy Hydroxyurea have falsely increased iStat Creatinine results. Verify creatinine results ordering a Creatinine (65377.2) eGFR 66(L) >90 mL/min/1.7 3m2 03/20/2024 11:43 AM TEXTILE ENGRAVER [facility] [employer] [facility] Comment:As of 2021, eG FR is calculated by the CKD-EPI creatinine equation without race adjustment. eGFR can be influenced by muscle mass, exercise, and diet. The reported eGFR is an estimation only and is only applicable if the renal function is stable. Blood BLOOD SPECIMEN / Unknown 03/19/2024 1:37 PM TEXTILE ENGRAVER 03/20/2024 11:43 AM TEXTILE ENGRAVER Mohit Olsen MD CHEMISTRY Final Result [facility] [address] [place] [address], * (ABNORMAL) ISTAT CHEM 8 (03/19/2024 1:25 PM TEXTILE ENGRAVER) SODIUM, POCT 137 135 - 145 mmol/L 03/20/2024 11:43 AM TEXTILE ENGRAVER [facility] POTASSIUM, POCT 4.6 3.5 - 5.0 mmol/L 03/20/2024 11:43 AM TEXTILE ENGRAVER [facility] CHLORIDE, POCT 101 98 - 107 mmol/L 03/20/2024 11:43 AM TEXTILE ENGRAVER [facility] CO2,TOTAL, POCT 27 21 - 31 mmol/L 03/20/2024 11:43 AM TEXTILE ENGRAVER [facility] ANION GAP, POCT 15 5 - 18 4 11:43 AM TEXTILE ENGRAVER [facility] GLUCOSE, POCT 98 70 - 99 mg/dL 03/20/2024 11:43 AM TEXTILE ENGRAVER [facility] BUN, POCT 16 8 - 25 mg/dL 03/20/2024 11:43 AM TEXTILE ENGRAVER [facility] BUN/CREAT RATIO, POCT 16 10 - 20 03/20/2024 11:43 AM TEXTILE ENGRAVER [facility] eGFR 58(L) >90 mL/min/1.7 3m2 03/20/2024 11:43 AM [facility] Comment:As of 2021, eG FR is calculated by the CKD-EPI creatinine equation without race adjustment. eGFR can be influenced by muscle mass, exercise, and diet. The reported eGFR is an estimation only and is only applicable if the renal function is stable. HEMATOCRIT, POCT 39.0 33.0 - 51.0 % 03/20/2024 11:43 AM TEXTILE ENGRAVER [facility] HEMOGLOBIN, POCT 13.3 12.0 - 16.0 g/dL 03/20/2024 11:43 AM [facility] Blood BLOOD SPECIMEN / Unknown 03/19/2024 1:25 PM TEXTILE ENGRAVER 03/20/2024 11:43 AM TEXTILE ENGRAVER Mohit Olsen MD CHEMISTRY Final Result [facility] [address] [place] [address], * (ABNORMAL) CBC W PLT NO DIFF (03/19/2024 1:07 PM TEXTILE ENGRAVER) WHITE BLOOD COUNT 7.3 4.5 - 11.0 thou/cu mm 03/19/2024 1:24 PM TEXTILE ENGRAVER [facility] RED BLOOD COUNT 4.05 4.00 - 5.20 mil/cu mm 03/19/2024 1:24 PM TEXTILE ENGRAVER [facility] HEMOGLOBIN 12.0 12.0 - 16.0 g/dL 03/19/2024 1:24 PM TEXTILE ENGRAVER [facility] HEMATOCRIT 37.7 33.0 - 51.0 % 03/19/2024 1:24 PM TEXTILE ENGRAVER [facility] MCV 93 80 - 100 fL 03/19/2024 1:24 PM TEXTILE ENGRAVER [facility] MCH 29.6 26.0 - 34.0 pg 03/19/2024 1:24 PM TEXTILE ENGRAVER [facility] MCHC 31.8(L) 32.0 - 36.0 g/dL 03/19/2024 1:24 PM [facility] RDW 13.5 11.5 - 15.5 % 03/19/2024 1:24 PM [facility] PLATELET COUNT 322 140 - 440 thou/cu mm 03/19/2024 1:24 PM [facility] MPV 9.1 6.5 - 11.0 fL 03/19/2024 1:24 PM TEXTILE ENGRAVER [facility] NRBC 0.0 % 03/19/2024 1:24 PM [facility] ABS NRBC 0.0 thou /cu mm 03/19/2024 1:24 PM [facility] Blood BLOOD SPECIMEN / Unknown Venipuncture / Unknown 03/19/2024 1:07 PM TEXTILE ENGRAVER 03/19/2024 1:14 PM TEXTILE ENGRAVER us Ottoniel Babb MD, PhD HEMATOLOGY Fin al Result [facility] [address] [place] [address], * (ABNORMAL) BASIC METABOLIC PANEL (03/19/2024 1:07 PM TEXTILE ENGRAVER) SODIUM 138 136 - 145 mmol/L 03/19/2024 2:01 PM TEXTILE ENGRAVER [facility] POTASSIUM 03/19/2024 2:01 PM TEXTILE ENGRAVER [facility] Comment:Canceled- Specimen H emolyzed, Disposition Per Policy CHLORIDE 101 98 - 107 mmol/L 03/19/2024 2:01 PM [facility] CO2,TOTAL 27 22 - 29 mmol/L 03/19/2024 2:01 PM [facility] ANION GAP 10 5 - 18 03/19/2024 2:01 PM [facility] GLUCOSE 109(H) 70 - 99 mg/dL 03/19/2024 2:01 PM [facility] CALCIUM 9.5 8.8 - 10.4 mg/dL 03/19/2024 2:01 PM [facility] Comment: Reference ranges for this test were updated on 03/05/2024 to reflect our healthy population more accurately. Reference range changes are not retroactively applied to results, but previous results using the same methodology can be interpreted in the context of the new reference range. BUN 15 8 - 23 mg/dL 03/19/2024 2:01 PM [facility] CREATININE 0.92(H) 0.50 - 0.90 mg/dL 03/19/2024 2:01 PM [facility] BUN/CREAT RATIO 16 10 - 20 2:01 PM [facility] eGFR 64(L) >90 mL/min/1. 73m2 03/19/2024 2:01 PM [facility] Comment:As of 2021, eG FR is calculated by the CKD-EPI creatinine equation without race adjustment. eGFR can be influenced by muscle mass, exercise, and diet. The reported eGFR is an estimation only and is only applicable if the renal function is stable. Blood BLOOD SPECIMEN / Unknown Venipuncture / Unknown 03/19/2024 1:07 PM TEXTILE ENGRAVER 03/19/2024 1:14 PM TEXTILE ENGRAVER us Ottoniel Babb MD, PhD CHEMISTRY Fin al Result [facility] [address] [place] [address], [place] * SCAN-MRI INTERPRETATION (03/04/2024 12:00 AM TEXTILE ENGRAVER) Anatomical Region Laterality Modality Other us Scanner OTHER Final Result * SCAN-CT INTERPRETATION (03/04/2024 12:00 AM TEXTILE ENGRAVER) Only the most recent of2 resultswithin the time period is included. Anatomical Region Laterality Modality Other us Scanner OTHER Final Result from Last 3 Months Insurance [id number] [facility] [place] [address] [facility] MR/MS[facility] MEDICARE PART A HB ONLY Advance Directives Documents on File Type Date Recorded Patient Pit Steward Expl anation POLST 07/18/2023 * Full Code (Latest Code Status on File) Date Activated Date Inactivated Comments 01/16/2024 11:27 AM 01/17/2024 2:07 AM Question Answer Comments Code Status Discussion: Reviewed Preferences Care Teams Meatman Relationship Specialty Start Date End Date Prabha Nice PA [address] [place] [address] PCP - General Physician Ultrasonic Solderer 05/18/23
--- OUTSIDE RECORDS SUMMARY | 2024-05-25 05:28 | XMS_ITS | Continuity of Care Document ---
Author Organization [facility] Address [address] [place] [address] Phone Care Team Providers Care Dietary Aid Name Role Phone Jani EASLEY MD, Augustine Unavailable Unavailable Advance Directives Directive Yes / No Effective Date File Name No Information Encounters Encounter Description Practice Location Reason(s) For Visit Diagnoses Date Provider Providers Copied on Encounter [facility], [address], [place], [place], [id number], [place] tel:[phone] No Information 200 [address] Jani EASLEY Augustine. [address], [facility], [place], [address], [place]. tel:[phone] Referring Provider: Fransisco Cortes MD, [address] [place] [address] [facility], [address]. tel:[phone] Family History Family Member Type Diagnosis Age At Onset No Information Payers Payer name Insurance type Covered alliance party ID Authordemetriaa eusebia(s) [facility] [id number] Social History Type Description Quantity Date Captured [...]
--- OUTSIDE RECORDS SUMMARY | 2024-05-25 05:28 | XMS_ITS | Clinical Summary ---
Author Organization [place] Address [facility] [place] [address] Care Team Providers Care Intake Clerk Name Role Phone Juan Rojas MD Primary Care Provider [phone] Allergies Active Allergy Reactions Criticality Noted Date [...] on file Legal Sex Female 3:41 AM SKID WORKER Gender Identity Not on file Sexual Orientation Not on file Last Filed Vital Signs Vital Sign Reading Time Taken Comments Blood Pressure 155/66 03/27/2023 8:11 AM SKID WORKER Pulse 90 03/27/2023 8:11 AM SKID WORKER Temperature 36.5 C (97.7 F) 03/27/2023 8:11 AM SKID WORKER Respiratory Rate 18 03/27/2023 8:11 AM SKID WORKER Oxygen Saturation 93% 03/27/2023 8:11 AM SKID WORKER Inhaled Oxygen Concentration - - Weight 98.3 kg (216 lb 11.4 oz) 03/22/2023 3:57 PM SKID WORKER Height 160 cm (5' 3) 03/22/2023 5:00 PM SKID WORKER Body Mass Index 38.39 03/22/2023 3:57 PM SKID WORKER Plan of Treatment Health Maintenance Due Date [...] BASIC METABOLIC PANEL Routine 03/27/2023 6:31 AM SKID WORKER from Last 3 Months or Most Recently Relevant to Health Maintenance Results * (ABNORMAL) Basic metabolic panel (03/27/2023 6:31 AM SKID WORKER) Sodium 134(L) 135 - 145 mmol/L 03/27/2023 6:59 AM SKID WORKER [facility] Comment:Reference intervals for this test were updated on 01/24/2023 to more accurately reflect our healthy population. There may be differences in the flagging of prior results with similar values performed with this method. Interpretation of those prior results can be made in the context of the updated reference intervals. Potassium 4.1 3.4 - 5.3 mmol/L 03/27/2023 6:59 AM SKID WORKER [facility] Chloride 101 98 - 107 mmol/L 03/27/2023 6:59 AM SKID WORKER [facility] Carbon Dioxide (CO2) 24 22 - 29 mmol/L 03/27/2023 6:59 AM SKID WORKER LABORATORY Anion Gap 9 7 - 15 mmol/L 03/27/2023 6:59 AM SKID WORKER LABORATORY Urea Nitrogen 15.5 8.0 - 23.0 mg/dL 03/27/2023 6:59 AM SKID WORKER LABORATORY Creatinine 0.84 0.51 - 0.95 mg/dL 03/27/2023 6:59 AM SKID WORKER LABORATORY GFR Estimate 72 >60 mL/min/1. 73m2 03/27/2023 6:59 AM SKID WORKER LABORATORY Calcium 8.5(L) 8.8 - 10.2 mg/dL 03/27/2023 6:59 AM SKID WORKER LABORATORY Glucose 102(H) 70 - 99 mg/dL 03/27/2023 6:59 AM SKID WORKER LABORATORY Blood STRUCTURE OF RIGHT UPPER LIMB / Unknown Venipuncture / Unknown 03/27/2023 6:31 AM SKID WORKER 03/27/2023 6:39 AM SKID WORKER us Bernice Stearns MD LAB - BLOOD ORDERABLES Fi nal Result LABORATORY [facility] [address] Lab (1st floor, no room number) [place] [address], [facility] [phone] from Last 3 Months or Most Recently Relevant to Health Maintenance Insurance [facility] MEDICARE ADVANTAGE [employer] MEDICARE ADVANTAGE Advance Directives For more information, please contact: [phone] * Full Code (Latest Code Status on File) Date Activated Date Inactivated Comments 03/22/2023 6:21 PM 03/27/2023 3:49 PM All basic and advanced life-sustaining interventions are performed as appropriate Question Answer Comments Code status determined by: Discussion with ty nt/ legal decision maker Care Teams Intake Clerk Relationship Specialty Start Date End Date Juan Rojas MD PCP - General Family Medicine 03/23/23
[2024-05-25] MEDS: HYDROmorphone 0.5 mg/0.5 ml inj IVP ×4 (05:32→22:05)
[2024-05-25 05:52] LABS: Creatinine, Point-of-Care* 0.9 mg/dl (0.6-1.3)
[2024-05-25 05:55] LABS: Basophils Percent Auto 0.2 % (0.0-3.0); Hematocrit 39.3 % (33.0-51.0); Hemoglobin* 12.7 gm/dL (12.0-16.0); Lymphocytes Percent Auto 8.8 % (20-44); Mean Corpuscular HGB Conc 32 gm/dL (32-36); Mean Corpuscular Hemoglobin 29 pg (26-34); Mean Corpuscular Volume 90 fL (80-100); Monocytes Percent Auto 5.3 % (0.0-11.0); Neutrophils Percent Auto 84.7 % (42.0-72.0); Platelet Count* 276 K/uL (140-440); RDW Coefficient of Variation % 13.8 % (11.5-15.5); Red Blood Count 4.36 m/uL (4.00-5.20); White Blood Count* 12.55 K/uL (4.50-11.00)
[2024-05-25 06:00] LABS: Slide Review Reflex No
[2024-05-25 06:07] LABS: Chloride* 106 mmol/L (96-114); Potassium* 4.8 mmol/L (3.6-5.1); Sodium* 137 mmol/L (135-149)
[2024-05-25 06:09] LABS: Creatinine* 0.8 mg/dL (0.5-1.5); Est. Creatinine Clearance* 38.97; Estimated Glomerular Filt Rate 76 ml/min
[2024-05-25 06:10] LABS: Anion Gap 9 mEq/L (7-15); Blood Urea Nitrogen* 23 mg/dL (7-30); Calcium* 9.4 mg/dL (8.4-10.6); Carbon Dioxide* 22 mmol/L (20-32); Glucose* 135 mg/dL (60-115)
[2024-05-25] MEDS: fentaNYL 100 MCG/2 ML inj 50 MCG IVP ×2 (06:15→08:20)
[2024-05-25] MEDS: 0.9 % SODIUM CHLORIDE 1000 ml 1,000 ML IV ×2 (08:24→22:10)
--- NOTE | 2024-05-25 10:44 | PM.IMHP1 ---
Hospitalist- H&P: HPI History of Present Illness Date Seen: 05/25/24 Chief complaint: abdominal pain Narrative: Gail Huynh is a 78 year old female past medical history significant for hypertension, hyperlipidemia, COPD, paroxysmal atrial fibrillation, hypothyroidism, mild cognitive impairment, as well as a significant surgical history with colectomy and revisions, gastric bypass is admitted to the medical floor from the ED with small-bowel obstruction. Patient reports onset of abdominal pain last evening, mid abdomen area, intense with onset, short-lived, recurring often. Denies any nausea or recent vomiting with this pain. Has an ileostomy and reports a large loose stool output yesterday as well as a small amount of stool this morning. Has continued to pass gas. Denies fevers or chills. Denies headache or dizziness. Denies chest pain or shortness of breath. Nonsmoker. Rare alcohol use. PCP is Dr. Nice. Wishes to be a full code, nothing life-sustaining. Review of Systems Narrative: REVIEW OF SYSTEMS: Complete review of systems performed and negative unless otherwise stated in HPI or below. [facility] Medical History (Updated 05/25/24 @ 15:57 by Dominga Hearn PA-C) Hepatic steatosis ?K76.0 - Fatty (change of) liver, not elsewhere classified (ICD-10) SBO (small bowel obstruction) (03/22/23) ?K56.609 - Unspecified intestinal obstruction, unspecified as to partial versus complete obstruction (ICD-10) Pulmonary HTN (05/18/18) ?I27.20 - Pulmonary hypertension, unspecified (ICD-10) CORAL (obstructive sleep apnea) (02/22/21) ?G47.33 - Obstructive sleep apnea (adult) (pediatric) (ICD-10) HTN (hypertension) (02/22/21) ?I10 - Essential (primary) hypertension (ICD-10) COPD (chronic obstructive pulmonary disease) (02/22/21) ?J44.9 - Chronic obstructive pulmonary disease, unspecified (ICD-10) Stage 3a chronic kidney disease (05/14/23) ?N18.31 - Chronic kidney disease, stage 3a (ICD-10) PMR (polymyalgia rheumatica) (02/22/21) ?M35.3 - Polymyalgia rheumatica (ICD-10) Peripheral sensory neuropathy (11/28/23) ?G60.8 - Other hereditary and idiopathic neuropathies (ICD-10) Major depressive disorder, recurrent episode, moderate (02/06/18) ?F33.1 - Major depressive disorder, recurrent, moderate (ICD-10) BIENVENIDO (generalized anxiety disorder) (02/22/21) ?F41.1 - Generalized anxiety disorder (ICD-10) Fibromuscular dysplasia of renal artery (02/22/21) ?I77.3 - Arterial fibromuscular dysplasia (ICD-10) Dyslipidemia (high LDL; low HDL) (03/01/18) ?E78.5 - Hyperlipidemia, unspecified (ICD-10) Acute kidney failure, unspecified (03/25/23) ?N17.9 - Acute kidney failure, unspecified (ICD-10) Small bowel obstruction ?K56.609 - Unspecified intestinal obstruction, unspecified as to partial versus complete obstruction (ICD-10) POLST (Physician Orders for Life-Sustaining Treatment) (~08/26/21) ?Z78.9 - Other specified health status (ICD-10) History of renal stone ?Z87.442 - Personal history of urinary calculi (ICD-10) History of DVT (deep vein thrombosis) ?Z86.718 - Personal history of other venous thrombosis and embolism (ICD-10) History of ischemic bowel disease (~2005) ?Z87.19 - Personal history of other diseases of the digestive system (ICD-10) Bleeding gastric varices (~2012) ?I86.4 - Gastric varices (ICD-10) Surgical History H/O gastrostomy ?Z98.890 - Other specified postprocedural states (ICD-10) S/P laparotomy with lysis of adhesions ?Z98.890 - Other specified postprocedural states (ICD-10) Ileostomy status (02/22/21) ?Z93.2 - Ileostomy status (ICD-10) S/P bunionectomy ?Z98.890 - Other specified postprocedural states (ICD-10) S/P repair of ventral hernia ?Z98.890 - Other specified postprocedural states (ICD-10) ?Z87.19 - Personal history of other diseases of the digestive system (ICD-10) H/O thumb surgery ?Z98.890 - Other specified postprocedural states (ICD-10) S/P carpal tunnel release ?Z98.890 - Other specified postprocedural states (ICD-10) Status post bilateral knee replacements (~2014) ?Z96.653 - Presence of artificial knee joint, bilateral (ICD-10) S/P colectomy ?Z90.49 - Acquired absence of other specified parts of digestive tract (ICD-10) S/P gastric bypass ?Z98.84 - Bariatric surgery status (ICD-10) Social History What is your current living situation?: I presently have a place to live Problems where you live: no known problems Problems where you live details: n/a In the past 12 months, utilities in danger of being shut off: no In past 12 months, lack of transportation kept you from medical appts, meetings, work, or getting things needed for daily living: no In the past 12 mos, have been you worried that your food would run out before you had money to buy more?: never true In the past 12 mos, the food you bought just didn't last and you didn't have money to buy more?: sometimes true Smoking Status: Never smoker Do you use any of these nicotine containing products: None Second hand tobacco smoke exposure: No How often do you have a drink containing alcohol: monthly or less How many standard drinks containing alcohol do you have on a typical day: 1 or 2 AUDIT-C Alcohol total score: 1 Non-prescribed substance use: denies use How often does anyone, including family, friends and others, physically hurt you: never How often does anyone, including family, friends and others, insult or talk down to you: never How often does anyone, including family, friends and others, threaten you with harm: never How often does anyone, including family, friends and others, scream or curse at you: never service: No Health Related Social Needs: food insecurity (Z59.41) Meds Home Medications and Allergies Home Medications ?Medication ?Instructions ?Recorded ?Confirmed ?Type diclofenac sodium 1 % topical gel 4 g topical QID PRN pain 12/27/22 05/25/24 History fluticasone propionate 50 2 spray intranasal DAILY PRN 12/27/22 05/25/24 History mcg/actuation nasal spray,suspension melatonin 3 mg tablet 4.5 mg PO HS insomnia 12/27/22 05/25/24 History multivitamin with minerals-folic 2 tab PO DAILY@1200 12/27/22 05/25/24 History acid 80 mcg chewable tablet (Centrum Adult 50 Plus) omeprazole 40 mg capsule,delayed 40 mg PO DAILY 12/27/22 05/25/24 History release venlafaxine 75 mg tablet 75 mg PO TID 12/27/22 05/25/24 History acetaminophen 500 mg tablet 1,000 mg PO 3XD 03/22/23 05/25/24 History cholecalciferol (vitamin D3) 50 50 mcg PO DAILY 03/22/23 05/25/24 History mcg (2,000 unit) capsule furosemide 20 mg tablet 20 mg PO MOFR 03/22/23 05/25/24 History cetirizine 5 mg tablet 10 mg PO Q48H 09/15/23 05/25/24 History hydrochlorothiazide 12.5 mg tablet 12.5 mg PO DAILY 09/15/23 05/25/24 History lactase 3,000 unit tablet 3,000 unit PO QID PRN 09/15/23 05/25/24 History metoprolol succinate 50 mg 50 mg PO DAILY 10/12/23 05/25/24 History tablet,extended release 24 hr atorvastatin 20 mg tablet 20 mg PO HS 05/25/24 05/25/24 History bupropion HCl 100 mg tablet 100 mg PO TID 05/25/24 05/25/24 History docusate sodium 100 mg capsule 100 mg PO DAILY 05/25/24 05/25/24 History hydroxyzine HCl 25 mg tablet 25 mg PO Q6H PRN 05/25/24 05/25/24 History levothyroxine 175 mcg tablet 175 mcg PO DAILY 05/25/24 05/25/24 History losartan 100 mg tablet 100 mg PO DAILY 05/25/24 05/25/24 History nystatin 100,000 unit/gram topical 1 applic topical TID PRN 05/25/24 05/25/24 History powder oxybutynin chloride 5 mg 5 mg PO DAILY 05/25/24 05/25/24 History tablet,extended release 24 hr pregabalin 75 mg capsule 75 mg PO BID 05/25/24 05/25/24 History Allergies Allergy/AdvReac Type Severity Reaction Status Date / Time droperidol Allergy Unknown Verified 05/25/24 06:29 metoclopramide (From Reglan) Allergy Unknown Verified 05/25/24 06:29 Polyglactin Allergy Unknown Verified 05/25/24 06:29 Sulfa (Sulfonamide Allergy Unknown Verified 05/25/24 06:29 Antibiotics) Exam Narrative: Exam Narrative: PHYSICAL EXAM General: Pleasant, conversant, NAD HEENT: Normocephalic, atraumatic, sclera white, EOMI, oral mucosa moist Cardiovascular: RRR, S1S2. No pitting edema Pulmonary: CTA bilaterally without rhonchi, rales, expiratory wheezes. No dyspnea Abdominal: Soft, nondistended, several old scars, tender middle of abdomen epigastric to lower region, some guarding Neurological: Alert, answering questions appropriately, cranial nerves intact, no focal findings Extremities: No gross joint deformity or swelling. AROMI. Neurovascularly intact Skin: Warm, dry. Const: Vital Signs, click to edit/add: Vital Signs - 24 hr 05/25/24 04:55 05/25/24 05:15 05/25/24 05:20 Temperature 98.0 F Pulse Rate 75 Pulse Rate [Pulse Oximeter] 74 Respiratory Rate 18 Blood Pressure Blood Pressure [Ri ght Upper Arm] 143/66 H Pulse Oximetry 98 95 93 Oxygen Delivery Me thod Room Air Oxygen Flow Rate 05/25/24 05:32 05/25/24 05:45 05/25/24 05:50 Temperature Pulse Rate 75 72 Pulse Rate [Pulse Oximeter] Respiratory Rate Blood Pressure Blood Pressure [Ri ght Upper Arm] Pulse Oximetry 93 96 92 Oxygen Delivery Me thod Oxygen Flow Rate 05/25/24 06:00 05/25/24 06:00 05/25/24 06:00 Temperature Pulse Rate 68 Pulse Rate [Pulse Oximeter] Respiratory Rate Blood Pressure Blood Pressure [Ri ght Upper Arm] Pulse Oximetry 95 100 100 Oxygen Delivery Me thod Nasal Cannula Oxygen Flow Rate 2 05/25/24 06:03 05/25/24 06:09 05/25/24 06:10 Temperature Pulse Rate 65 69 Pulse Rate [Pulse Oximeter] Respiratory Rate Blood Pressure 128/42 L Blood Pressure [Ri ght Upper Arm] Pulse Oximetry 93 87 L 90 Oxygen Delivery Me thod Oxygen Flow Rate 05/25/24 06:29 05/25/24 06:30 05/25/24 06:31 Temperature Pulse Rate 82 83 83 Pulse Rate [Pulse Oximeter] Respiratory Rate 14 Blood Pressure 196/82 H Blood Pressure [Ri ght Upper Arm] Pulse Oximetry 100 99 99 Oxygen Delivery Me thod Nasal Cannula Oxygen Flow Rate 2 05/25/24 06:40 05/25/24 06:45 05/25/24 06:50 Temperature Pulse Rate 82 Pulse Rate [Pulse Oximeter] Respiratory Rate Blood Pressure Blood Pressure [Ri ght Upper Arm] Pulse Oximetry 98 100 99 Oxygen Delivery Me thod Oxygen Flow Rate 05/25/24 07:07 05/25/24 07:10 05/25/24 07:15 Temperature Pulse Rate 80 81 Pulse Rate [Pulse Oximeter] Respiratory Rate Blood Pressure Blood Pressure [Ri ght Upper Arm] Pulse Oximetry 97 100 100 Oxygen Delivery Me thod Oxygen Flow Rate 05/25/24 07:20 05/25/24 07:30 05/25/24 07:40 Temperature Pulse Rate 83 Pulse Rate [Pulse Oximeter] Respiratory Rate Blood Pressure Blood Pressure [Ri ght Upper Arm] Pulse Oximetry 100 98 100 Oxygen Delivery Me thod Oxygen Flow Rate 05/25/24 07:45 05/25/24 07:50 05/25/24 08:00 Temperature Pulse Rate 81 81 Pulse Rate [Pulse Oximeter] Respiratory Rate Blood Pressure Blood Pressure [Ri ght Upper Arm] Pulse Oximetry 100 99 99 Oxygen Delivery Me thod Oxygen Flow Rate 05/25/24 08:04 05/25/24 08:10 05/25/24 08:15 Temperature Pulse Rate 85 82 Pulse Rate [Pulse Oximeter] Respiratory Rate Blood Pressure 150/89 H Blood Pressure [Ri ght Upper Arm] Pulse Oximetry 100 98 99 Oxygen Delivery Me thod Oxygen Flow Rate 05/25/24 08:20 Temperature Pulse Rate Pulse Rate [Pulse Oximeter] Respiratory Rate Blood Pressure Blood Pressure [Ri ght Upper Arm] Pulse Oximetry 98 Oxygen Delivery Me thod Oxygen Flow Rate Hospitalist - H&P: Result Labs Labs: Short CBC 05/25/24 Range/Units 05:45 WBC 12.55 H (4.50-11.00) K/uL Hgb 12.7 (12.0-16.0) gm/dL Hct 39.3 (33.0-51.0) % Plt Count 276 (140-440) K/uL [facility] 05/25/24 05:45 Sodium 137 Potassium 4.8 Chloride 106 Carbon Dioxide 22 BUN 23 Creatinine 0.8 Glucose 135 H Calcium 9.[address] abdomen pelvis: Attestation: I have reviewed the pertinent imaging results. Radiologist's impression: Visualized lung bases: Calcified granuloma in the right lower lobe. Mitral annular calcifications. Mild atherosclerotic coronary artery calcifications. Liver: Mild hepatic steatosis. Post cholecystectomy. Similar mild prominence of the intrahepatic bile ducts. Common bile duct is normal in diameter. Pancreas: Unremarkable. Spleen: Unremarkable. Adrenals: Unremarkable. Kidneys: Unchanged calcification along the anterior interpolar right kidney. Too small to characterize hypodensity within the right kidney. No hydronephrosis. Aorta/IVC: Moderate atherosclerotic aortic calcifications without aneurysmal dilation. Lymph nodes: No lymphadenopathy. Bowel: Postoperative changes following colectomy with right lower quadrant end ileostomy. There are multiple dilated small bowel loops throughout the abdomen and pelvis. Transition point is along the anterior abdominal wall at the patient`s ileostomy. Status post Humberto-en-Y gastric bypass. No intraperitoneal free air or free fluid. Stool is seen within the rectal stump. Pelvis: Unremarkable. Bones/body wall: Ventral abdominal wall laxity. Osseous demineralization. Multilevel degenerative disc disease. Impression: 1. Status post colectomy and right lower quadrant end ileostomy. Small bowel obstruction with transition point along the anterior abdominal wall at the ileostomy site. 2. Hepatic steatosis. 3. Cholecystectomy with similar mild prominence of the intrahepatic bile ducts. Assessment and Plan Assessment and plan (1) Small bowel obstruction: Problem comment: -acute on chronic recurrent. Previous history of humberto-en Y, ventral hernia repair, total colectomy with colostomy with revisions - complex interventions -CT shows status post colectomy and right lower quadrant end ileostomy. Small bowel obstruction with transition point along the anterior abdominal wall at the ileostomy site -abdominal pain, no nausea no vomiting. No NGT placed -mild leukocytosis, will defer antibiotics for now -IVF, NPO, pain and nausea management as needed -General surgery consulted. Plan for Gastrografin challenge. May need transfer to tertiary center if no improvement or worsening given complexity of prior abdominal surgeries -lactate 2.2, continue IVF and recheck Status: Acute (2) Hypertension: Problem comment: -continue home meds Status: Acute (3) Hyperlipidemia: Problem comment: -continue statin Status: Acute (4) Hypothyroidism: Problem comment: -TSH ordered -continue levothyroxine Status: Acute (5) Obstructive sleep apnea: Problem comment: -not using CPAP. abstracted from [facility] record Status: Acute (6) Paroxysmal atrial fibrillation with rapid ventricular response: Problem comment: -noted EMR -she is on a beta-mihaela, no chronic anticoagulation -Enoxaparin Status: Acute (7) COPD (chronic obstructive pulmonary disease): Problem comment: -per [facility] record mild persistent asthma -monitor, incentive spirometry Status: Acute (8) Mild cognitive impairment: Problem comment: -noted from EMR, not overt, monitor Status: Acute (9) Hepatic steatosis: Problem comment: -noted on CT, AST chronically elevated Status: Acute Total Time Spent Total Time Spent: Total time spent caring for the patient today was 75 minutes. This includes time spent for the visit reviewing the chart, time spent during the visit, time spent after the visit and documentation and planning in coordination of care.
[2024-05-25 12:08] LABS: Albumin* 4.4 g/dL (3.3-5.0)
[2024-05-25 12:11] LABS: Alanine Aminotransferase* 27 U/L (4-35); Alkaline Phosphatase* 128 U/L (40-150); Aspartate Amino Transferase* 36 U/L (12-35); Bilirubin Direct* 0.2 mg/dL (0.0-0.5); Bilirubin Total* 0.4 mg/dL (0.1-1.5); Magnesium* 2.1 mg/dL (1.5-2.6); Phosphorus* 4.2 mg/dL (2.5-4.5); Total Protein* 7.7 g/dL (6.0-8.3)
--- NOTE | 2024-05-25 12:34 | P.GSCN_ITS ---
History of Present Illness Consult details Date Seen: 05/25/24 Consult date: 05/25/24 Narrative: The patient is a 78-year-old female who presented to the emergency department last evening with severe abdominal pain. She states that she woke up in the middle the night with abdominal pain. She states that it was ?[place]. ? Yesterday afternoon noon she states that she had eaten ice cream and then had diarrhea from her stoma site. She has a complex abdominal history. She has a history of gastric bypass. 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 This was done at [facility] in 2004. She states she has had bowel obstructions in the past 3 or 4 times previously. 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 In March of 2023, similarly she presented to our emergency department with appearance of the small bowel obstruction. Because of her surgical complexity, she was transferred to [facility]. She underwent laparoscopy converted to laparotomy with lysis of adhesions, partial mesh explantation and repair of small-bowel enterotomy after finding a phytobezoar. The operative report from that stay showed frozen abdomen requiring extensive adhesiolysis to locate small bowel - the fascia was opened around the ostomy, widening it, and a large phytobezoar was evacuated through an enterotomy which was repaired. Most recently she was transferred from the [facility] Emergency Department to [place] for small bowel obstruction. There she underwent an exploratory laparotomy and lysis of adhesions and gastrostomy tube placement. Operative report was reviewed. 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 Because of the frozen abdomen, a gastrostomy tube was placed. CT scan at that time showed high-grade stenosis at the site of the right-sided ileostomy with fecalization of the distal small bowel suggesting slow flow. There was no discrete transition point seen at that time. This was complicated by sepsis and encephalopathy as well as SVT. She was intubated she for several days postoperatively. The patient states that she was in the hospital and does not remember 3 weeks of her hospital stay. Currently, she complains of severe abdominal pain across her mid abdomen. This is relieved with Dilaudid. She has not been vomiting. She had not had stoma output since yesterday when she had the diarrhea. [facility] Medical History Small bowel obstruction ?K56.609 - Unspecified intestinal obstruction, unspecified as to partial versus complete obstruction (ICD-10) POLST (Physician Orders for Life-Sustaining Treatment) (~08/26/21) ?Z78.9 - Other specified health status (ICD-10) History of renal stone ?Z87.442 - Personal history of urinary calculi (ICD-10) History of DVT (deep vein thrombosis) ?Z86.718 - Personal history of other venous thrombosis and embolism (ICD-10) History of ischemic bowel disease (~2005) ?Z87.19 - Personal history of other diseases of the digestive system (ICD-10) Bleeding gastric varices (~2012) ?I86.4 - Gastric varices (ICD-10) Surgical History S/P bunionectomy ?Z98.890 - Other specified postprocedural states (ICD-10) S/P repair of ventral hernia ?Z98.890 - Other specified postprocedural states (ICD-10) ?Z87.19 - Personal history of other diseases of the digestive system (ICD-10) H/O thumb surgery ?Z98.890 - Other specified postprocedural states (ICD-10) S/P carpal tunnel release ?Z98.890 - Other specified postprocedural states (ICD-10) Status post bilateral knee replacements (~2014) ?Z96.653 - Presence of artificial knee joint, bilateral (ICD-10) S/P colectomy ?Z90.49 - Acquired absence of other specified parts of digestive tract (ICD- 10) S/P gastric bypass ?Z98.84 - Bariatric surgery status (ICD-10) Social History What is your current living situation?: I presently have a place to live Problems where you live: no known problems In the past 12 months, utilities in danger of being shut off: no In past 12 months, lack of transportation kept you from medical appts, meetings, work, or getting things needed for daily living: no In the past 12 mos, have been you worried that your food would run out before you had money to buy more?: never true In the past 12 mos, the food you bought just didn't last and you didn't have money to buy more?: sometimes true Smoking Status: Never smoker Do you use any of these nicotine containing products: None Second hand tobacco smoke exposure: No How often do you have a drink containing alcohol: monthly or less How many standard drinks containing alcohol do you have on a typical day: 1 or 2 AUDIT-C Alcohol total score: 1 Non-prescribed substance use: denies use How often does anyone, including family, friends and others, physically hurt you : never How often does anyone, including family, friends and others, insult or talk down to you: never How often does anyone, including family, friends and others, threaten you with harm: never How often does anyone, including family, friends and others, scream or curse at you: never service: No Health Related Social Needs: food insecurity (Z59.41) Meds Home Medications and Allergies Home Medications ?Medication ?Instructions ?Recorded ?Confirmed ?Type diclofenac sodium 1 % topical gel 4 g topical QID PRN pain 12/27/22 05/25/24 History fluticasone propionate 50 2 spray intranasal DAILY PRN 12/27/22 05/25/24 History mcg/actuation nasal spray,suspension melatonin 3 mg tablet 4.5 mg PO HS insomnia 12/27/22 05/25/24 History multivitamin with minerals-folic 2 tab PO DAILY@1200 12/27/22 05/25/24 History acid 80 mcg chewable tablet (Centrum Adult 50 Plus) omeprazole 40 mg capsule,delayed 40 mg PO DAILY 12/27/22 05/25/24 History release venlafaxine 75 mg tablet 75 mg PO TID 12/27/22 05/25/24 History acetaminophen 500 mg tablet 1,000 mg PO 3XD 03/22/23 05/25/24 History cholecalciferol (vitamin D3) 50 50 mcg PO DAILY 03/22/23 05/25/24 History mcg (2,000 unit) capsule furosemide 20 mg tablet 20 mg PO MOFR 03/22/23 05/25/24 History cetirizine 5 mg tablet 10 mg PO Q48H 09/15/23 05/25/24 History hydrochlorothiazide 12.5 mg tablet 12.5 mg PO DAILY 09/15/23 05/25/24 History lactase 3,000 unit tablet 3,000 unit PO QID PRN 09/15/23 05/25/24 History metoprolol succinate 50 mg 50 mg PO DAILY 10/12/23 05/25/24 History tablet,extended release 24 hr atorvastatin 20 mg tablet 20 mg PO HS 05/25/24 05/25/24 History bupropion HCl 100 mg tablet 100 mg PO TID 05/25/24 05/25/24 History docusate sodium 100 mg capsule 100 mg PO DAILY 05/25/24 05/25/24 History hydroxyzine HCl 25 mg tablet 25 mg PO Q6H PRN 05/25/24 05/25/24 History levothyroxine 175 mcg tablet 175 mcg PO DAILY 05/25/24 05/25/24 History losartan 100 mg tablet 100 mg PO DAILY 05/25/24 05/25/24 History nystatin 100,000 unit/gram topical 1 applic topical TID PRN 05/25/24 05/25/24 History powder oxybutynin chloride 5 mg 5 mg PO DAILY 05/25/24 05/25/24 History tablet,extended release 24 hr pregabalin 75 mg capsule 75 mg PO BID 05/25/24 05/25/24 History Allergies Allergy/AdvReac Type Severity Reaction Status Date / Time droperidol Allergy Unknown Verified 05/25/24 06:29 metoclopramide (From Reglan) Allergy Unknown Verified 05/25/24 06:29 Polyglactin Allergy Unknown Verified 05/25/24 06:29 Sulfa (Sulfonamide Allergy Unknown Verified 05/25/24 06:29 Antibiotics) Exam Narrative: Exam Narrative: General: Patient is resting comfortably in bed, however she does complain of significant abdominal pain in her mid abdomen. CV: Regular rate Respiratory: Breathing is nonlabored on room air Abdomen: Abdomen is soft. She does have firmness noted about her stoma. This corresponds to an area of small bowel with inspissated stool sitting under the stoma. I am able to digitally probe the stoma. My pinky finger does pass through what appears to be fascia. Const: Vital Signs, click to edit/add: Vital Signs - 24 hr 05/25/24 04:55 05/25/24 05:15 05/25/24 05:20 Temperature 98.0 F Pulse Rate 75 Pulse Rate [Pulse Oximeter] 74 Respiratory Rate 18 Blood Pressure Blood Pressure [Ri ght Upper Arm] 143/66 H Pulse Oximetry 98 95 93 Oxygen Delivery Me thod Room Air Oxygen Flow Rate 05/25/24 05:32 05/25/24 05:45 05/25/24 05:50 Temperature Pulse Rate 75 72 Pulse Rate [Pulse Oximeter] Respiratory Rate Blood Pressure Blood Pressure [Ri ght Upper Arm] Pulse Oximetry 93 96 92 Oxygen Delivery Me thod Oxygen Flow Rate 05/25/24 06:00 05/25/24 06:00 05/25/24 06:00 Temperature Pulse Rate 68 Pulse Rate [Pulse Oximeter] Respiratory Rate Blood Pressure Blood Pressure [Ri ght Upper Arm] Pulse Oximetry 95 100 100 Oxygen Delivery Me thod Nasal Cannula Oxygen Flow Rate 2 05/25/24 06:03 05/25/24 06:09 05/25/24 06:10 Temperature Pulse Rate 65 69 Pulse Rate [Pulse Oximeter] Respiratory Rate Blood Pressure 128/42 L Blood Pressure [Ri ght Upper Arm] Pulse Oximetry 93 87 L 90 Oxygen Delivery Me thod Oxygen Flow Rate 05/25/24 06:29 05/25/24 06:30 05/25/24 06:31 Temperature Pulse Rate 82 83 83 Pulse Rate [Pulse Oximeter] Respiratory Rate 14 Blood Pressure 196/82 H Blood Pressure [Ri ght Upper Arm] Pulse Oximetry 100 99 99 Oxygen Delivery Me thod Nasal Cannula Oxygen Flow Rate 2 05/25/24 06:40 05/25/24 06:45 05/25/24 06:50 Temperature Pulse Rate 82 Pulse Rate [Pulse Oximeter] Respiratory Rate Blood Pressure Blood Pressure [Ri ght Upper Arm] Pulse Oximetry 98 100 99 Oxygen Delivery Me thod Oxygen Flow Rate 05/25/24 07:07 05/25/24 07:10 05/25/24 07:15 Temperature Pulse Rate 80 81 Pulse Rate [Pulse Oximeter] Respiratory Rate Blood Pressure Blood Pressure [Ri ght Upper Arm] Pulse Oximetry 97 100 100 Oxygen Delivery Me thod Oxygen Flow Rate 05/25/24 07:20 05/25/24 07:30 05/25/24 07:40 Temperature Pulse Rate 83 Pulse Rate [Pulse Oximeter] Respiratory Rate Blood Pressure Blood Pressure [Ri ght Upper Arm] Pulse Oximetry 100 98 100 Oxygen Delivery Me thod Oxygen Flow Rate 05/25/24 07:45 05/25/24 07:50 05/25/24 08:00 Temperature Pulse Rate 81 81 Pulse Rate [Pulse Oximeter] Respiratory Rate Blood Pressure Blood Pressure [Ri ght Upper Arm] Pulse Oximetry 100 99 99 Oxygen Delivery Me thod Oxygen Flow Rate 05/25/24 08:04 05/25/24 08:10 05/25/24 08:15 Temperature Pulse Rate 85 82 Pulse Rate [Pulse Oximeter] Respiratory Rate Blood Pressure 150/89 H Blood Pressure [Ri ght Upper Arm] Pulse Oximetry 100 98 99 Oxygen Delivery Me thod Oxygen Flow Rate 05/25/24 08:20 Temperature Pulse Rate Pulse Rate [Pulse Oximeter] Respiratory Rate Blood Pressure Blood Pressure [Ri ght Upper Arm] Pulse Oximetry 98 Oxygen Delivery Me thod Oxygen Flow Rate Results Labs Labs: White blood cell count was 12.5 with a left shift. Electrolytes within normal limits. AST mildly elevated at 36 but remainder of LFTs normal. Imaging Abdomen CT scan report/results: report reviewed and image reviewed Additional studies: CT Abdomen/Pelvis Impression: 1. Status post colectomy and right lower quadrant end ileostomy. Small bowel obstruction with transition point along the anterior abdominal wall at the ileostomy site. 2. Hepatic steatosis. 3. Cholecystectomy with similar mild prominence of the intrahepatic bile ducts. 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 Discussed images with Radiology and compared to prior CT scan. No evidence of ischemia. I do not think a closed loop obstruction is possible given her frozen abdomen, however it appears as though the transition point is at the abdominal wall. This appears similar to prior CT scans - although she did have surgery after each of those because of the stricture. -white blood cell count and abdominal pain are concerning to me, however I am able to pass my finger through the fascia and, on exam, she has thick vegetable matter/stool that has passed through the stoma since admission. -I think that the patient is a high risk surgical candidate, previously at tertiary centers she was unable to undergo lysis of adhesion and most recently had a prolonged hospital stay. -check a lactate, CRP is she has not had these done -we will try a Gastrografin challenge to see if this may help open up the obstruction since she does have partial return of bowel function and again I am able to pass my finger through the fascia. -if she does not improve, or appears to worsen clinically, I do strongly feel she needs transfer to tertiary center given the complexity of the findings of her prior abdominal surgeries. She may benefit from re-siting of her stoma, however based on the prior operative reports, I am not sure if this is even possible. She has at high risk for enterotomy and complications from surgery. Time Spent With Patient Total time spent: I spent a total of 60 minutes on the day of the visit. This was spent reviewing previous images and notes, discussing the case with consultants, and examining the patient.
[2024-05-25] MEDS: fentaNYL 100 MCG/2 ML inj 25 MCG IVP ×2 (12:57→15:09)
--- NOTE | 2024-05-25 13:17 | REH.OT ---
Pt with significant pain, still getting settled and oriented to her new room, as recently admitted. Will hold OT today, and intiate efforts next available date, as appropriate.
--- NOTE | 2024-05-25 13:50 | REH.PT ---
PT eval order received, hold per nsg. PT to eval 05/26.
[2024-05-25 13:54] LABS: C Reactive Protein* 0.9 mg/dL (0.5-1.0)
[2024-05-25] MEDS: DIATRIZOATE MEGLUMINE, SODIUM 120 ML SOLUTION 90 ML PO (14:03)
[2024-05-25] MEDS: 0.9 % SODIUM CHLORIDE 1000 ml 1,000 ML 100 ML IV (14:17)
[2024-05-25] MEDS: buPROPion HCL 75 MG TABLET 93.75 MG PO ×2 (15:07→21:05)
[2024-05-25] MEDS: VENLAFAXINE HCL 37.5 MG TABLET 75 MG PO ×2 (15:08→21:04)
[2024-05-25 15:51] LABS: Lactate* 2.2 mmol/L (0.5-1.9)
[2024-05-25 18:03] LABS: Lactate* 2.9 mmol/L (0.5-1.9)
[2024-05-25 18:04] LABS: Basophils Percent Auto 0.2 % (0.0-3.0); Eosinophils Percent Auto 0.1 % (0.0-7.0); Hematocrit 42.4 % (33.0-51.0); Hemoglobin* 13.8 gm/dL (12.0-16.0); Immature Granulocytes Pct Auto 0.1 %; Mean Corpuscular HGB Conc 33 gm/dL (32-36); Mean Corpuscular Hemoglobin 29 pg (26-34); Mean Corpuscular Volume 90 fL (80-100); Monocytes Percent Auto 5.3 % (0.0-11.0); Neutrophils Percent Auto 81.3 % (42.0-72.0); Platelet Count* 293 K/uL (140-440); Red Blood Count 4.71 m/uL (4.00-5.20); White Blood Count* 13.03 K/uL (4.50-11.00)
[2024-05-25 18:06] LABS: Slide Review Reflex No
[2024-05-25] MEDS: 0.9 % SODIUM CHLORIDE 500 ML 500 ML IV (18:33)
--- NOTE | 2024-05-25 18:52 | PC.NURSE ---
Patient admitted into room 260 around 0830 this morning. Patient experiencing abdominal pain in her lower abdomen. Fentanyl and Dilaudid given for pain. Patient states her last significant ostomy output was yesterday evening with minimal output since. Gastrografin drank by patient around 1500. After this, patient has had increased pain. Remains afebrile however pulse rate has increased into the 110's. Pt is sweaty and clammy - given ice pack for comfort.
[2024-05-25] MEDS: ATORVASTATIN 10 MG TABLET 20 MG PO (21:03)
[2024-05-25] MEDS: ENOXAPARIN 40 MG/0.4 ML INJ SUBCUT (21:05)
[2024-05-25] MEDS: PREGABALIN 75 MG CAPSULE PO (21:11)
[2024-05-25] MEDS: ACETAMINOPHEN 325 MG TABLET PO (21:12)
[2024-05-25] MEDS: 0.9 % SODIUM CHLORIDE 1000 ml 1,000 ML 125 ML IV (22:01)
--- NOTE | 2024-05-25 22:03 | CRLHL7_ITS ---
For Patients: As a result of the Century Cures Act, medical imaging exams and procedure reports are released immediately into your electronic medical record. You may view this report before your referring provider. If you have questions, please contact your health care provider. Indication: NG tube placement Technique: Single frontal view of the abdomen Comparison: Same day CT abdomen Findings/impression : Enteric tube tip is below the diaphragm, but the side port remains above it. Consider advancement by 10 cm for optimal function. Unremarkable bowel gas pattern. Cholecystectomy clips. Lung bases are clear. Spinal degenerative changes. Levoconvex curvature of the lumbar spine. Dictated by Hill Yoon MD @ 05/25/2024 11:10:27 PM (Electronically Signed)
--- NOTE | 2024-05-25 22:12 | PM.DST ---
Transfer Discharge Sum: Prov Provider Date Seen: 05/25/24 Date of admission: 05/25/24 08:29 Primary care physician: Prabha Nice PA-C Admitting clinician: Dominga Hearn Consults: 05/25/24 10:55 Consult to Occupational Therapy [CONS] Routine Comment: Reason(s) for OT Consult:: Evaluate and Treat Any Restrictions?:: No Restrictions Consult to Physical Therapy [CONS] Routine Comment: Reason(s) for PT Consult:: Evaluate and Treat Any Restrictions?:: No Restrictions Consult to Physician [CONS] Routine Comment: Consulting Provider: Juliane Thomas Has provider been notified: Yes Attending physician on discharge: Francesca Thomas Anticipated date of transfer: 05/25/24 Receiving physician/facility: [facility] DS: Diagnosis Discharge Diagnosis (1) Small bowel obstruction: Status: Acute Problem details: -acute on chronic recurrent. Previous history of humberto-en Y, ventral hernia repair, total colectomy with colostomy with revisions - complex interventions -CT: s/p colectomy and right lower quadrant end ileostomy. Small bowel obstruction with transition point along the anterior abdominal wall at the ileostomy site -abdominal pain, no nausea no vomiting. No NGT placed -mild leukocytosis, will defer antibiotics for now -IVF, NPO, pain and nausea management as needed -General surgery consulted, plan for Gastrografin challenge -given increasing lactate and tachycardia, recommend transfer to tertiary center 05/25/24 (2) Paroxysmal atrial fibrillation with rapid ventricular response: Status: Acute Problem details: -noted per EMR -she is on a beta-mihaela, no chronic anticoagulation -Enoxaparin during stay (3) COPD (chronic obstructive pulmonary disease): Status: Acute Problem details: -per [place] record mild persistent asthma -monitor, incentive spirometry, stable on RA (4) Pulmonary hypertension: Status: Acute Problem details: RVP 50 mm Hg (5) Ileostomy present: Status: Acute (6) Stricture intestinal: Status: Acute Problem details: -stoma site stricture Transfer Discharge Sum: Med Medications Active and Home Medications: Home Medications diclofenac sodium 1 % topical gel 4 g topical QID PRN pain 12/27/22 [History Confirmed 05/25/24] fluticasone propionate 50 mcg/actuation nasal spray,suspension 2 spray intranasal DAILY PRN 12/27/22 [History Confirmed 05/25/24] melatonin 3 mg tablet 4.5 mg PO HS insomnia 12/27/22 [History Confirmed 05/25/24] multivitamin with minerals-folic acid 80 mcg chewable tablet (Centrum Adult 50 Plus) 2 tab PO DAILY@1200 12/27/22 [History Confirmed 05/25/24] omeprazole 40 mg capsule,delayed release 40 mg PO DAILY 12/27/22 [History Confirmed 05/25/24] venlafaxine 75 mg tablet 75 mg PO TID 12/27/22 [History Confirmed 05/25/24] acetaminophen 500 mg tablet 1,000 mg PO 3XD 03/22/23 [History Confirmed 05/25/24] cholecalciferol (vitamin D3) 50 mcg (2,000 unit) capsule 50 mcg PO DAILY 03/22/23 [History Confirmed 05/25/24] furosemide 20 mg tablet 20 mg PO MOFR 03/22/23 [History Confirmed 05/25/24] cetirizine 5 mg tablet 10 mg PO Q48H 09/15/23 [History Confirmed 05/25/24] hydrochlorothiazide 12.5 mg tablet 12.5 mg PO DAILY 09/15/23 [History Confirmed 05/25/24] lactase 3,000 unit tablet 3,000 unit PO QID PRN 09/15/23 [History Confirmed 05/25/24] metoprolol succinate 50 mg tablet,extended release 24 hr 50 mg PO DAILY 10/12/23 [History Confirmed 05/25/24] meclizine 12.5 mg tablet 12.5 mg PO TID PRN #20 tabs 03/04/24 [Rx Confirmed 05/25/24] atorvastatin 20 mg tablet 20 mg PO HS 05/25/24 [History Confirmed 05/25/24] bupropion HCl 100 mg tablet 100 mg PO TID 05/25/24 [History Confirmed 05/25/24] docusate sodium 100 mg capsule 100 mg PO DAILY 05/25/24 [History Confirmed 05/25/24] hydroxyzine HCl 25 mg tablet 25 mg PO Q6H PRN 05/25/24 [History Confirmed 05/25/24] levothyroxine 175 mcg tablet 175 mcg PO DAILY 05/25/24 [History Confirmed 05/25/24] losartan 100 mg tablet 100 mg PO DAILY 05/25/24 [History Confirmed 05/25/24] nystatin 100,000 unit/gram topical powder 1 applic topical TID PRN 05/25/24 [History Confirmed 05/25/24] oxybutynin chloride 5 mg tablet,extended release 24 hr 5 mg PO DAILY 05/25/24 [History Confirmed 05/25/24] pregabalin 75 mg capsule 75 mg PO BID 05/25/24 [History Confirmed 05/25/24] Active Medications Acetaminophen (Acetaminophen 325 Mg Tablet) 650 - 975 mg PO Q6H PRN Last Admin: 05/25/24 21:12 Dose: 650 mg Atorvastatin Calcium (Atorvastatin 10 Mg Tablet) 20 mg PO HS [facility] Last Admin: 05/25/24 21:03 Dose: 20 mg Bupropion HCl (Bupropion Hcl 75 Mg Tablet) 93.75 mg PO TID [facility] Last Admin: 05/25/24 21:05 Dose: 93.75 mg Cetirizine HCl (Cetirizine Hcl 10 Mg Tablet) 10 mg PO Q48H [facility] Last Admin: 05/25/24 21:20 Dose: Not Given Enoxaparin Sodium (Enoxaparin 40 Mg/0.4 Ml Inj) 40 mg SUBCUT HS [facility] Last Admin: 05/25/24 21:05 Dose: 40 mg Fentanyl (Fentanyl 100 Mcg/2 Ml Inj) 25 mcg IVP Q2H PRN Last Admin: 05/25/24 15:09 Dose: 25 mcg Hydrochlorothiazide (Hydrochlorothiazide 12.5 Mg Capsule) 12.5 mg PO DAILY [facility] Hydromorphone HCl (Hydromorphone 0.5 Mg/0.5 Ml Inj) 0.5 mg IVP Q2H PRN PRN Reason: Pain Last Admin: 05/25/24 22:05 Dose: 0.5 mg Hydroxyzine Pamoate (Hydroxyzine Pamoate 25 Mg Capsule) 25 mg PO Q6H PRN Sodium Chloride (0.9 % Sodium Chloride 1000 Ml) 1,000 mls @ 125 mls/hr IV .Q8H [facility] Last Admin: 05/25/24 22:01 Dose: 125 mls/hr Ampicillin Sodium/Sulbactam (Sodium 3 gm/ Sodium Chloride) 100 mls @ 200 mls/hr IVPB Q6H [facility] Sodium Chloride (0.9 % Sodium Chloride 1000 Ml) 1,000 mls @ 1,000 mls/hr IV .Q1H [facility] Stop: 05/25/24 23:01 Last Admin: 05/25/24 22:10 Dose: 1,000 mls/hr Levothyroxine Sodium (Levothyroxine 100 Mcg Tablet) 100 mcg PO DAILY [facility] Levothyroxine Sodium (Levothyroxine 75 Mcg Tablet) 75 mcg PO DAILY [facility] Losartan Potassium (Losartan Potassium 50 Mg Tablet) 100 mg PO DAILY [facility] Melatonin (Melatonin 3 Mg Tablet) 4.5 mg PO HS [facility] Last Admin: 05/25/24 21:20 Dose: Not Given Metoprolol Succinate (Metoprolol Succinate (Xl) 50 Mg Tab) 50 mg PO DAILY [facility] Lactase 3,000 Unit (Tablet) 0 unit PO QID PRN Omeprazole (Omeprazole [address]) 40 mg PO DAILY [facility] Ondansetron HCl (Ondansetron 2 Mg/Ml Inj) 4 mg IVP Q4H PRN PRN Reason: Nausea Oxybutynin Chloride (Oxybutynin Chloride 5 Mg Tab.Er.24) 5 mg PO DAILY [facility] Pregabalin (Pregabalin 75 Mg Capsule) 75 mg PO BID [facility] Last Admin: 05/25/24 21:11 Dose: 75 mg Sodium Chloride (Sodium Chloride 0.9 % (Flush) 10 Ml Syringe) 5 ml IVF .FLUSH PRN Sodium Chloride (Sodium Chloride 0.9 % (Flush) 10 Ml Syringe) 5 ml IVF BID [facility] Last Admin: 05/25/24 21:14 Dose: Not Given Venlafaxine HCl (Venlafaxine Hcl 37.5 Mg Tablet) 75 mg PO TID [facility] Last Admin: 05/25/24 21:04 Dose: 75 mg Transfer Discharge Sum: Hosp Hospital Course Hospital course: Gail Huynh is a 78 year old female who presented to our hospital's ER on 05/24/24 with severe abdominal pain. 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 Per General Surgeon H&P: In March of 2023, similarly she presented to our emergency department with appearance of the small bowel obstruction. Because of her surgical complexity, she was transferred to [facility]. She underwent laparoscopy converted to laparotomy with lysis of adhesions, partial mesh explantation and repair of small-bowel enterotomy after finding a phytobezoar. The operative report from that stay showed frozen abdomen requiring extensive adhesiolysis to locate small bowel - the fascia was opened around the ostomy, widening it, and a large phytobezoar was evacuated through an enterotomy which was repaired. Most recently she was transferred from the [facility] Emergency Department to [place] for small bowel obstruction. There she underwent an exploratory laparotomy and lysis of adhesions and gastrostomy tube placement. Operative report was reviewed. 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 Because of the frozen abdomen, a gastrostomy tube was placed. CT scan at that time showed high-grade stenosis at the site of the right-sided ileostomy with fecalization of the distal small bowel suggesting slow flow. There was no discrete transition point seen at that time. This was complicated by sepsis and encephalopathy as well as SVT. She was intubated she for several days postoperatively. The patient states that she was in the hospital and does not remember 3 weeks of her hospital stay. In the ER, CT findings: Impression: 1. Status post colectomy and right lower quadrant end ileostomy. Small bowel obstruction with transition point along the anterior abdominal wall at the ileostomy site. 2. Hepatic steatosis. 3. Cholecystectomy with similar mild prominence of the intrahepatic bile ducts. Patient admitted for nonoperative management. Upon admission, plan was to initiate Gastrografin challenge. Patient was fairly tolerant of this, although continued to have abdominal pain. No nausea or vomiting. Despite IV fluid resuscitation, lactate increased during stay (1.0 -->2.2--> 2.9), and heart rate also noted to increase from 80s to 110s. Blood pressure remained stable. Patient is not a surgical candidate for facility; given worsening clinical status, reviewed case with Dr. Patel (hospitalist) and Dr. Perez (general surgery) at [facility], who accept the patient for transfer. We will place an NG and give Unasyn, in addition to another fluid bolus, prior to transfer. Time Spent with Patient Time attestation: Total time spent providing and/or coordinating transfer services: Total time spent: Greater than 30 minutes Exam Narrative: Exam Narrative: Patient resting comfortably in bed. Abdomen is soft, mild discomfort with palpation. There was some matter in the ostomy during exam earlier today. Const: Vital Signs, click to edit/add: Vital Signs - 24 hr 05/25/24 04:55 05/25/24 05:15 05/25/24 05:20 Temperature 98.0 F Pulse Rate 75 Pulse Rate [Pulse Oximeter] 74 Respiratory Rate 18 Blood Pressure Blood Pressure [Le ft Arm] Blood Pressure [Ri ght Upper Arm] 143/66 H Pulse Oximetry 98 95 93 Oxygen Delivery Me thod Room Air Oxygen Flow Rate 05/25/24 05:32 05/25/24 05:45 05/25/24 05:50 Temperature Pulse Rate 75 72 Pulse Rate [Pulse Oximeter] Respiratory Rate Blood Pressure Blood Pressure [Le ft Arm] Blood Pressure [Ri ght Upper Arm] Pulse Oximetry 93 96 92 Oxygen Delivery Me thod Oxygen Flow Rate 05/25/24 06:00 05/25/24 06:00 05/25/24 06:00 Temperature Pulse Rate 68 Pulse Rate [Pulse Oximeter] Respiratory Rate Blood Pressure Blood Pressure [Le ft Arm] Blood Pressure [Ri ght Upper Arm] Pulse Oximetry 95 100 100 Oxygen Delivery Me thod Nasal Cannula Oxygen Flow Rate 2 05/25/24 06:03 05/25/24 06:09 05/25/24 06:10 Temperature Pulse Rate 65 69 Pulse Rate [Pulse Oximeter] Respiratory Rate Blood Pressure 128/42 L Blood Pressure [Le ft Arm] Blood Pressure [Ri ght Upper Arm] Pulse Oximetry 93 87 L 90 Oxygen Delivery Me thod Oxygen Flow Rate 05/25/24 06:29 05/25/24 06:30 05/25/24 06:31 Temperature Pulse Rate 82 83 83 Pulse Rate [Pulse Oximeter] Respiratory Rate 14 Blood Pressure 196/82 H Blood Pressure [Le ft Arm] Blood Pressure [Ri ght Upper Arm] Pulse Oximetry 100 99 99 Oxygen Delivery Me thod Nasal Cannula Oxygen Flow Rate 2 05/25/24 06:40 05/25/24 06:45 05/25/24 06:50 Temperature Pulse Rate 82 Pulse Rate [Pulse Oximeter] Respiratory Rate Blood Pressure Blood Pressure [Le ft Arm] Blood Pressure [Ri ght Upper Arm] Pulse Oximetry 98 100 99 Oxygen Delivery Me thod Oxygen Flow Rate 05/25/24 07:07 05/25/24 07:10 05/25/24 07:15 Temperature Pulse Rate 80 81 Pulse Rate [Pulse Oximeter] Respiratory Rate Blood Pressure Blood Pressure [Le ft Arm] Blood Pressure [Ri ght Upper Arm] Pulse Oximetry 97 100 100 Oxygen Delivery Me thod Oxygen Flow Rate 05/25/24 07:20 05/25/24 07:30 05/25/24 07:40 Temperature Pulse Rate 83 Pulse Rate [Pulse Oximeter] Respiratory Rate Blood Pressure Blood Pressure [Le ft Arm] Blood Pressure [Ri ght Upper Arm] Pulse Oximetry 100 98 100 Oxygen Delivery Me thod Oxygen Flow Rate 05/25/24 07:45 05/25/24 07:50 05/25/24 08:00 Temperature Pulse Rate 81 81 Pulse Rate [Pulse Oximeter] Respiratory Rate Blood Pressure Blood Pressure [Le ft Arm] Blood Pressure [Ri ght Upper Arm] Pulse Oximetry 100 99 99 Oxygen Delivery Me thod Oxygen Flow Rate 05/25/24 08:04 05/25/24 08:10 05/25/24 08:15 Temperature Pulse Rate 85 82 Pulse Rate [Pulse Oximeter] Respiratory Rate Blood Pressure 150/89 H Blood Pressure [Le ft Arm] Blood Pressure [Ri ght Upper Arm] Pulse Oximetry 100 98 99 Oxygen Delivery Me thod Oxygen Flow Rate 05/25/24 08:20 05/25/24 09:51 05/25/24 09:51 Temperature 97.9 F Pulse Rate Pulse Rate [Pulse Oximeter] Respiratory Rate 16 16 Blood Pressure Blood Pressure [Le ft Arm] 136/67 Blood Pressure [Ri ght Upper Arm] Pulse Oximetry 98 98 98 Oxygen Delivery Me thod Nasal Cannula Nasal Cannula Oxygen Flow Rate 2 2 05/25/24 10:55 05/25/24 15:00 05/25/24 15:00 Temperature 97.9 F Pulse Rate Pulse Rate [Pulse Oximeter] Respiratory Rate 16 16 Blood Pressure Blood Pressure [Le ft Arm] 136/67 Blood Pressure [Ri ght Upper Arm] Pulse Oximetry 98 98 Oxygen Delivery Me thod Nasal Cannula Oxygen Flow Rate 2 05/25/24 17:36 05/25/24 19:28 Temperature 98.2 F 97.0 F L Pulse Rate Pulse Rate [Pulse Oximeter] 102 H Respiratory Rate 16 20 Blood Pressure Blood Pressure [Le ft Arm] 166/90 H 143/62 H Blood Pressure [Ri ght Upper Arm] Pulse Oximetry 98 96 Oxygen Delivery Me thod Room Air Room Air Oxygen Flow Rate Discharge Plan Discharge Disposition: [facility] Date of Admission: 05/25/24 08:29 Attending Provider on Discharge: Francesca Thomas Primary Care Provider: Prabha Nice Condition: Stable Discharge Orders: Transfer of Care to Other Hospital (ORDER); Ordered 05/25/24 Ordered By: Francesca Thomas Oxygen: No Urinary Catheter: No Drips/Lines: Unasyn, IVFs
--- NOTE | 2024-05-25 23:15 | PC.NURSE ---
A7O and cooperative. reporting 10/10 intermittent abd pain. see eMAR for interventions. Intermittently tachy otherwise VSS. pt reported nausea upon initial assessment but refused any antinausea. travel writer attempted to educate pt on medication but pt did not want any. bowel sounds active but no output from stoma. pt transfer to [facility] via EMS at 2310.
== END 2024-05-25 23:05 | disposition short-term general hospital (02) ==
LOC: ED 07:55 → MEDSURG 08:32
PROVIDERS: Family Medicine; Physician Assistant; Surgery; Admitting Provider Family Medicine; Emergency Provider Family Medicine; PCP Physician Assistant; Visit Provider Family Medicine
DX: K56.609 Unspecified intestinal obstruction, unspecified as to partial versus complete obstruction (principal); R10.9 Unspecified abdominal pain; K56.699 Other intestinal obstruction unspecified as to partial versus complete obstruction; D72.829 Elevated white blood cell count, unspecified; Z93.2 Ileostomy status; K76.0 Fatty (change of) liver, not elsewhere classified; I48.0 Paroxysmal atrial fibrillation; I10 Essential (primary) hypertension; E78.5 Hyperlipidemia, unspecified; G47.33 Obstructive sleep apnea (adult) (pediatric); J44.9 Chronic obstructive pulmonary disease, unspecified; J45.30 Mild persistent asthma, uncomplicated; I27.20 Pulmonary hypertension, unspecified; G31.84 Mild cognitive impairment of uncertain or unknown etiology; E03.9 Hypothyroidism, unspecified; K21.9 Gastro-esophageal reflux disease without esophagitis; Z78.9 Other specified health status; Z87.19 Personal history of other diseases of the digestive system; Z90.49 Acquired absence of other specified parts of digestive tract; Z98.84 Bariatric surgery status
CPT/HCPCS: 36415; 74018; 74177; 80048; 80076; 81001; 82565; 83605; 83735; 84100; 84443; 85025; 86140; 94761; 96361; 96372; 96374; 96375; 96376; 99284; 99285; A9270; G0378; J1171; J1650; J2405; J3010; J7030; Q9967

== ENCOUNTER 2024-05-25 22:48 | Outpatient (CLI) | payer MEDICARE, OTHER, SELFPAY | END 2024-05-25 22:49 | disposition home or self-care (01) | LOC: AMB 06-02 08:14 | PROVIDERS: PCP Physician Assistant; Visit Provider Family Medicine | DX: K56.609 Unspecified intestinal obstruction, unspecified as to partial versus complete obstruction (principal); Z93.2 Ileostomy status | CPT/HCPCS: A0425; A0427 ==

== ENCOUNTER 2024-08-27 09:53 | Emergency (ER) | payer MEDICARE, OTHER, SELFPAY ==
--- OUTSIDE RECORDS SUMMARY | 2024-08-27 09:55 | XMS_ITS | Clinical Summary ---
Author Organization [facility] Address [address] [place] [address] Care Team Providers Care Chief Operating Officer Name Role Phone Prabha Nice PA-C Primary Care Provider [phone] Allergies Active Allergy Reactions Criticality Noted Date [...] by mouth daily Active levothyroxine (SYNTHROID/LEVO THROID) 175 MCG tablet Take 175 mcg by mouth daily. Active losartan (COZAAR) 100 MG tablet Take 100 mg by mouth daily. Active omeprazole (PRILOSEC) [address] capsule Take 40 mg by mouth daily Active venlafaxine (EFFEXOR) 75 MG tablet Take 75 mg by mouth 3 times daily Active cyanocobalamin (VITAMIN B-12) 1000 MCG tablet Take 2,000 mcg by mouth daily Active vitamin D3 (CHOLECALCIFERO L) 50 mcg (2000 units) tablet Take 1 tablet by mouth daily Active hydrochlorothia zide (HYDRODIURIL) 12.5 MG tablet [...] for severe pain 10 tablet 03/27/2023 Active pregabalin (LYRICA) 75 MG capsule Take 75 mg by mouth 2 times daily. Active oxyBUTYnin ER (DITROPAN XL) 5 MG 24 hr tablet Take 5 mg by mouth daily. Active metoprolol succinate ER (TOPROL XL) 50 MG 24 hr tablet Take 50 mg by mouth daily. Active furosemide (LASIX) 20 MG tablet Take 20 mg by mouth 2 times daily. Active hydrOXYzine HCl (ATARAX) 25 MG tablet Take 25 mg by mouth 2 times daily. Active Active Problems Problem Noted Date Diagnosed Date Bowel obstruction 05/26/2024 Acute kidney failure, unspecified 03/25/2023 SBO (small [...] School Help Needed Not on file 03/22 Food Insecurity Answer Date Recorded Within the past 12 months, d id you worry that your food would run out before you got money to buy more? No 05/26/2024 Within the past 12 months, d id the food you bought just not last and you didn t have money to get more? No 05/26/2024 Housing Stability Answer Date Recorded Do you have housing? (Kranthi g is defined as stable permanent housing and does not include staying outside in a car, in a tent, in an abandoned building, in an overnight detention, or couch-surfing.) No 05/26/2024 Are you worried about losing your housing? No 05/26/2024 Financial Resource Strain Answer Date R ecorded Within the past 12 months, h ave you or your family members you live with been unable to get utilities (heat, electricity) when it was really needed? No 05/26/2024 Transportation Needs Answer Date Record ed Within the past 12 months, h as lack of transportation kept you from medical appointments, getting your medicines, non-medical meetings or appointments, work, or from getting things that you need? Yes 05/26/2024 Interpersonal Safety Answer Date Record ed Do you feel physically and e motionally safe where you currently live? Yes 05/26/2024 Within the past 12 months, h ave you been hit, slapped, kicked or otherwise physically hurt by someone? No 05/26/2024 Within the past 12 months, h ave you been humiliated or emotionally abused in other ways by your partner or ex-partner? No 05/26/2024 Comments Unknown Sex and Gender Information Value Date Recorded Sex Assigned at Not on file Legal Sex Female 3:41 AM LOCATION AND MEASUREMENT TECHNICIAN Gender Identity Not on file Sexual Orientation Not on file Last Filed Vital Signs Vital Sign Reading Time Taken Comments Blood Pressure 135/76 05/27/2024 3:25 PM LOCATION AND MEASUREMENT TECHNICIAN Pulse 96 05/27/2024 3:25 PM LOCATION AND MEASUREMENT TECHNICIAN Temperature 36.9 C (98.4 F) 05/27/2024 3:25 PM LOCATION AND MEASUREMENT TECHNICIAN Respiratory Rate 18 05/27/2024 3:25 PM LOCATION AND MEASUREMENT TECHNICIAN Oxygen Saturation 97% 05/27/2024 3:25 PM LOCATION AND MEASUREMENT TECHNICIAN Inhaled Oxygen Concentration - - Weight 90.6 kg (199 lb 11.2 oz) 05/26/2024 8:42 AM LOCATION AND MEASUREMENT TECHNICIAN Height 160 cm (5' 3) 05/26/2024 8:42 AM LOCATION AND MEASUREMENT TECHNICIAN Body Mass Index 35.38 05/26/2024 8:42 AM LOCATION AND MEASUREMENT TECHNICIAN Plan of Treatment Health Maintenance Due Date Last Done Comments ADVANCE CARE PLANNING 1945 ANNUAL REVIEW OF HM ORDERS 1945 LIPID 1946 TSH W/FREE T4 REFLEX 1946 HEPATITIS C SCREENING 1964 FALL RISK ASSESSMENT 2011 ZOSTER IMMUNIZATION (2 of 3) 09/03/2013 07/09/2013 RSV VACCINE (1 - 1-dose 75+ series) 2021 PHQ-2 (once per calendar year) 2024 COVID-19 Vaccine ( season) 2024 02/13/2024, 05/11/2023, 03/09/2022, Additional history exists MEDICARE ANNUAL WELLNESS VISIT 08/14/2024 08/15/2023, 02/22/2021 DIABETES SCREENING 05/26/2027 05/26/2024, 0 05/25/2024, 03/27/2023, Additional history exists DEXA 08/11/2030 08/12/2015, 08/12/2015 DTAP/TDAP/TD IMMUNIZATION (3 - Td or Tdap) 12/27/2032 12/27/2022, 03/21/2012, 09/28/2009 Pneumococcal Vaccine: 50+ Years Completed 08/15/2023, 11/11/2014, 09/28/2009, Additional history exists INFLUENZA VACCINE Completed 02/13/2024, , 02/17/2022, Additional history exists HPV IMMUNIZATION Aged Out No longer e ligible based on patient's age to complete this topic MENINGITIS IMMUNIZATION Aged Out No l onger eligible based on patient's age to complete this topic Procedures Procedure Name Priority Date/Time Associated Diagnosis Comments BASIC METABOLIC PANEL Timed 05/26/2024 3:09 AM LOCATION AND MEASUREMENT TECHNICIAN from Last 3 Months or Most Recently Relevant to Health Maintenance Results * (ABNORMAL) Basic metabolic panel (05/26/2024 3:09 AM LOCATION AND MEASUREMENT TECHNICIAN) Sodium 141 135 - 145 mmol/L 05/26/2024 3:53 AM [facility] Potassium 4.9 3.4 - 5.3 mmol/L 05/26/2024 3:53 AM [facility] Chloride 107 98 - 107 mmol/L 05/26/2024 3:53 AM [facility] Carbon Dioxide (CO2) 24 22 - 29 mmol/L 05/26/2024 3:53 AM [facility] Anion Gap 10 7 - 15 mmol/L 05/26/2024 3:53 AM [facility] Urea Nitrogen 25.2(H) 8.0 - 23.0 mg/dL 05/26/2024 3:53 AM [facility] Creatinine 0.78 0.51 - 0.95 mg/dL 05/26/2024 3:53 AM [facility] GFR Estimate 78 >60 mL/min/1.7 3m2 05/26/2024 3:53 AM [facility] Comment:eGFR calculated usin g 2020 CKD-EPI equation. Calcium 8.9 8.8 - 10.4 mg/dL 05/26/2024 3:53 AM [facility] Comment:Reference intervals for this test were updated on 11/14/2023 to reflect our healthy population more accurately. There may be differences in the flagging of prior results with similar values performed with this method. Those prior results can be interpreted in the context of the updated reference intervals. Glucose 139(H) 70 - 99 mg/dL 05/26/2024 3:53 AM [facility] Blood STRUCTURE OF RIGHT UPPER LIMB / Unknown Venipuncture / Unknown 05/26/2024 3:09 AM LOCATION AND MEASUREMENT TECHNICIAN 05/26/2024 3:26 AM LOCATION AND MEASUREMENT TECHNICIAN us Heriberto Morocho MD LAB - BLOOD ORDERABLES Final Result LABORATORY [facility] [address], [address] [place] [address], [facility] [phone] from Last 3 Months or Most Recently Relevant to Health Maintenance Insurance [employer] MEDICARE ADVANTAGE [employer] ADVANTAGE Advance Directives For more information, please contact: [phone] * Full Code (Latest Code Status on File) Date Activated Date Inactivated Comments 05/26/2024 12:55 AM 05/27/2024 6:58 PM All basic a nd advanced life-sustaining interventions are performed as appropriate Question Answer Comments Code status determined by: Discussion with radhae nt/ legal decision maker * Full Code Date Activated Date Inactivated Comments 03/22/2023 6:21 PM 03/27/2023 3:49 PM All basic and advanced life-sustaining interventions are performed as appropriate Question Answer Comments Code status determined by: Discussion with radhae nt/ legal decision maker Care Teams Chief Operating Officer Relationship Specialty Start Date End Date Prabha Nice PA-C [address] [place] [address] PCP - General 05/26/24
--- OUTSIDE RECORDS SUMMARY | 2024-08-27 09:55 | XMS_ITS | Clinical Summary ---
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 Blood products may be delayed. Draw patient 24 hours prior to transfusion. For [facility] testing, draw one red top and two [...] daily. 48 g 3 11/17/19 24 Active cetirizine (ZYRTEC) 10 mg tabletIndications: [...] daily. 90 Tablet 2 12/13/19 24 Active losartan (COZAAR) 100 mg tabletIndications: Primary hypertension Take 1 Tablet (100 mg) by mouth once daily. 90 Tablet 1 12/13/19 24 Active nystatin powder (MYCOSTATIN) powder Apply topically to affected area(s) each time if needed. 10/31/19 24 Active melatonin 3 mg tabletIndications: Insomnia, [...] MONDAY 30 Tablet 1 02/20/20 24 Active levothyroxine (SYNTHROID) 175 mcg tabletIndications: Hypothyroidism (acquired) Take 1 Tablet (175 mcg) by mouth before breakfast. 90 Tablet 2 03/24/20 24 Active hydrOXYzine HCL (ATARAX) 25 mg tabletIndications: Panic attacks Take 25 mg bid for anxiety. Doses must be taken at least 6 hours apart. 180 Tablet 3 03/25/20 24 Active pregabalin (LYRICA) 100 mg capsuleIndications :Peripheral sensory neuropathy Take 1 Capsule (100 mg) by mouth two times daily. 180 Capsule 1 05/30/19 25 Active meclizine (ANTIVERT) 12.5 mg tabletIndications: Vertigo Take 1 Tablet (12.5 mg) by mouth 3 times daily if needed for Vertigo. 60 Tablet 2 06/27/19 25 Active albuterol HFA 90 mcg/actuation inhalerIndications :Wheezing Inhale 1-2 Puffs by mouth every 4 hours if needed for Shortness Of Breath or Wheezing. 18 g 07/17/19 25 Active umeclidinium 62.5 mcg/actuation inhalerIndications :Other emphysema (HC) Inhale 1 Puff by mouth once daily. Discard inhaler 6 weeks after opening or when the counter reads '0' (after all blisters have been used), whichever comes first. 30 Each 07/19/19 25 Active buPROPion 100 mg HCl tabletIndications: MDD (major depressive disorder), recurrent episode, moderate (HC) Take 1 Tablet (100 mg) by mouth two times daily. Based on updated ISMP guidelines, DO NOT crush or chew. 180 Tablet 3 08/02/19 25 Active venlafaxine 75 mg tabletIndications: MDD (major depressive disorder), recurrent episode, moderate (HC) Take 1 Tablet (75 mg) by mouth two times daily. 180 Tablet 08/02/19 25 Active nortriptyline 10 mg capsuleIndications :Chronic insomnia,Periphera l sensory neuropathy Take 1 Capsule (10 mg) by mouth at bedtime. 90 Capsule 08/09/19 25 Active buPROPion (WELLBUTRIN) 100 mg tabletIndications: MDD (major depressive disorder), recurrent episode, moderate (HC) Take 1 Tablet (100 mg) by mouth three times daily. Based on updated ISMP guidelines, DO NOT crush or chew. 270 Tablet 2 11/28/19 24 025 Discontin ued(Reord er (E-cancel not sent)) venlafaxine (EFFEXOR) 75 mg tabletIndications: MDD (major depressive disorder), recurrent episode, moderate (HC) Take 1 Tablet (75 mg) by mouth three times daily. 270 Tablet 1 12/13/19 24 025 Discontin ued(Reord er (E-cancel not sent)) cephalexin 500 mg capsuleIndications :Cellulitis, abdominal wall Take 1 Capsule (500 mg) by mouth three times daily. 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 Overview (02/22/2021): diagnosed neptune 2009 HTN (hypertension) 02/22/2021 Hypothyroidism (acquired) 02/22/2021 [...] Encounters Date Type Department Care Team Description 08/26/2024 Nurse Triage [facility] [address] [place] [address] Prabha Nice PA Rash 08/08/2024 Telephone [facility] [address] [place] [address] Prabha Nice PA Questions (Sleep medication ) 08/01/2024 9:50 AM CDT Office Visit [address] [address] Prabha Nice PA Tremors (When she gets anxious she starts to shake and her hands with jerk); Referral (Cancelled cardiology appt as she didn't have a ride-never got rescheduled-wants to make sure it's ok that she hasn't gone yet); Sleep Problem (Unable to sleep at night) 08/01/2024 Telephone [facility] [id number] [place] [address] [address] [place] [address] Ehsan Richter RN Follow Up (CT prep) 08/01/2024 Travel 07/18/2024 Telephone [facility] [address] [place] [address] Prabha Nice PA Medication Management 07/16/[address] [address] Prabha Nice PA Refill Request (/albuterol HFA (PRO-AIR; VENTOLIN; PROVENTIL) ) 06/26/2024 Refill [facility] [address] [place] [address] Prabha Nice PA Refill Request (Meclizine) 06/11/2024 Orders Only [facility] [address] [place] [address] Catalina Charles MD <No scans attached> 05/29/2024 Telephone [facility] [address] [place] [address] Prabha Nice PA Medication Management (pregabalin (LYRICA) 75 mg capsule) from Last 3 Months Immunizations Immunization Administration Dates Next Due COVID-19 VACCINE SPIKEVAX [...] on file Legal Sex Female 5:18 AM FABRICATOR ARTIFICIAL BREAST Gender Identity Not on file Sexual Orientation Not on file Obstetrics History Last Filed Vital Signs Vital Sign Reading Time Taken Comments Blood Pressure 129/82 08/01/2024 9:54 AM CDT Pulse 60 08/01/2024 9:54 AM CDT Temperature 37.2 C (98.9 F) 01/12/2024 10:28 AM CDT Respiratory Rate 18 01/16/2024 1:10 PM CDT Oxygen Saturation 97% 08/01/2024 9:54 AM CDT Inhaled Oxygen Concentration - - Weight 90.7 kg (200 lb) 08/01/2024 9:54 AM CDT Height 156 cm (5' 1.42) 03/19/2024 4:28 PM FABRICATOR ARTIFICIAL BREAST Body Mass Index 37.28 03/19/2024 4:28 PM FABRICATOR ARTIFICIAL BREAST Plan of Treatment Health Maintenance Due Date Last Done Comments Hepatitis C screening for age 18-79 1963 Zoster (shingles) series for age 50+ (2 of 3) 09/03/2013 07/09/2013 RSV vaccine for adults or (1 - 1-dose 75+ series) 2021 COVID-19 vaccine series (2023- season) 2024 02/13/2024, 05/11/2023, 03/09/2022, Additional history exists Medicare Wellness for age 65+ 08/15/2024 08/15/2023, [...] Completed 08/15/2023, 11/11/2014, 09/28/2009, Additional history exists Influenza Vaccine Completed 02/13/2024, , 03/01/2018, Additional history exists Insurance [facility] MR MEDICARE PART A HB ONLY Advance Directives Documents on File Type Date Recorded Patient Electrician Research Maureen eng POL 07/18/2023 * Full Code (Latest Code Status on File) Date Activated Date Inactivated Comments 01/16/2024 11:27 AM 01/17/2024 2:07 AM Question Answer Comments Code Status Discussion: Reviewed Preferences Care Teams Forensic Anthropologist Relationship Specialty Start Date End Date Prabha Nice PA [address] [facility] [address] PCP - General Physician Phone Technician 05/18/23
[2024-08-27 09:58] VITALS: BP 115/69; PULSE 69; RESP 22; TEMP 35.7; BMI 33.5
--- NOTE | 2024-08-27 10:23 | ED_ITS ---
HPI - Skin/Abscess/Foreign Bdy General Date Seen: 08/27/24 Chief complaint: Skin/Abscess/Foreign Body Stated complaint: shingles Time Seen by Provider: 08/27/24 09:57 Source: patient Mode of arrival: ambulatory Limitations: no limitations History of Present Illness HPI narrative: This pleasant 71-year-old female presents here with history of a rash just under her left breast, he wondering if she has shingles as she has been told by the nurses in [place] where she lives at the [facility] that she probably does she has been told to not come out with the rest of the residence. She notices pain over this area, keeping her up at night time, and she is presenting here she has not seen anyone else for this, she is unsure if she has had chickenpox in the past. She only has the rash in the 1 area. She is taking Tylenol for her discomfort which she says she takes 3 times a day. No fevers or chills, no nausea vomiting, Past history of a colostomy on the right side, she tells me this is from her colon being twisted in . She has had 2 previous revisions. No history of any renal failure and I see a note from a GFR from May of 2024 having normal function MD complaint: rash Tetanus up to date: yes Quality: burning and stabbing Associated symptoms: denies other symptoms Treatments prior to arrival: none Related Data Home Medications ?Medication ?Instructions ?Recorded ?Confirmed diclofenac sodium 1 % topical gel 4 g topical QID PRN pain 12/27/22 08/27/24 fluticasone propionate 50 2 spray intranasal DAILY PRN 12/27/22 08/27/24 mcg/actuation nasal spray,suspension melatonin 3 mg tablet 5 mg PO HS insomnia 12/27/22 08/27/24 multivitamin with minerals-folic 2 tab PO DAILY@1200 12/27/22 08/27/24 acid 80 mcg chewable tablet (Centrum Adult 50 Plus) omeprazole 40 mg capsule,delayed 40 mg PO DAILY 12/27/22 08/27/24 release venlafaxine 75 mg tablet 75 mg PO Q12H 12/27/22 08/27/24 acetaminophen 500 mg tablet 1,000 mg PO 3XD PRN 03/22/23 08/27/24 cholecalciferol (vitamin D3) 50 50 mcg PO DAILY 03/22/23 08/27/24 mcg (2,000 unit) capsule furosemide 20 mg tablet 20 mg PO MOFR 03/22/23 08/27/24 cetirizine 5 mg tablet 10 mg PO HS PRN 09/15/23 08/27/24 hydrochlorothiazide 12.5 mg tablet 12.5 mg PO DAILY 09/15/23 08/27/24 lactase 3,000 unit tablet 3,000 unit PO QID PRN 09/15/23 08/27/24 metoprolol succinate 50 mg 50 mg PO DAILY 10/12/23 08/27/24 tablet,extended release 24 hr atorvastatin 20 mg tablet 20 mg PO HS 05/25/24 05/25/24 bupropion HCl 100 mg tablet 100 mg PO TID 05/25/24 08/27/24 docusate sodium 100 mg capsule 100 mg PO DAILY 05/25/24 08/27/24 hydroxyzine HCl 25 mg tablet 25 mg PO Q6H PRN 05/25/24 08/27/24 levothyroxine 175 mcg tablet 175 mcg PO DAILY 05/25/24 08/27/24 losartan 100 mg tablet 100 mg PO HS 05/25/24 08/27/24 nystatin 100,000 unit/gram topical 1 applic topical TID PRN 05/25/24 08/27/24 powder oxybutynin chloride 5 mg 5 mg PO DAILY 05/25/24 08/27/24 tablet,extended release 24 hr pregabalin 75 mg capsule 100 mg PO BID 05/25/24 08/27/24 biotin 10,000 mcg chewable tablet 1 mcg PO DAILY 08/27/24 08/27/24 (Hair, Skin and Nails (biotin)) sennosides 8.6 mg tablet 8.6 mg PO BID PRN 08/27/24 08/27/24 (Evac-U-Gen (sennosides)) Previous Rx's ?Medication ?Instructions ?Recorded meclizine 12.5 mg tablet 12.5 mg PO TID PRN #20 tabs 03/04/24 oxycodone 5 mg tablet 5 mg PO QHS PRN pain #10 tabs 08/27/24 valacyclovir 1 gram tablet 1,000 mg PO TID #21 tabs 08/27/24 (Valtrex) Allergies Allergy/AdvReac Type Severity Reaction Status Date / Time droperidol Allergy Unknown Verified 08/27/24 10:01 metoclopramide (From Reglan) Allergy Unknown Verified 08/27/24 10:01 Polyglactin Allergy Unknown Verified 08/27/24 10:01 Sulfa (Sulfonamide Allergy Unknown Verified 08/27/24 10:01 Antibiotics) Review of Systems Status of ROS: Reports: 10 or more systems reviewed and unremarkable except as noted in History and below PFS PFS Medical History Paroxysmal atrial fibrillation with rapid ventricular response ?I48.0 - Paroxysmal atrial fibrillation (ICD-10) Obstructive sleep apnea ?G47.33 - Obstructive sleep apnea (adult) (pediatric) (ICD-10) Mild cognitive impairment ?G31.84 - Mild cognitive impairment of uncertain or unknown etiology (ICD-10) COPD (chronic obstructive pulmonary disease) ?J44.9 - Chronic obstructive pulmonary disease, unspecified (ICD-10) Hypothyroidism ?E03.9 - Hypothyroidism, unspecified (ICD-10) Hyperlipidemia ?E78.5 - Hyperlipidemia, unspecified (ICD-10) Hypertension ?I10 - Essential (primary) hypertension (ICD-10) Hepatic steatosis ?K76.0 - Fatty (change of) liver, not elsewhere classified (ICD-10) SBO (small bowel obstruction) (03/22/23) ?K56.609 - Unspecified intestinal obstruction, unspecified as to partial versus complete obstruction (ICD-10) Pulmonary HTN (05/18/18) ?I27.20 - Pulmonary hypertension, unspecified (ICD-10) CORAL (obstructive sleep apnea) (02/22/21) ?G47.33 - Obstructive sleep apnea (adult) (pediatric) (ICD-10) HTN (hypertension) (02/22/21) ?I10 - Essential (primary) hypertension (ICD-10) COPD (chronic obstructive pulmonary disease) (02/22/21) ?J44.9 - Chronic obstructive pulmonary disease, unspecified (ICD-10) Stage 3a chronic kidney disease (05/14/23) ?N18.31 - Chronic kidney disease, stage 3a (ICD-10) PMR (polymyalgia rheumatica) (02/22/21) ?M35.3 - Polymyalgia rheumatica (ICD-10) Peripheral sensory neuropathy (11/28/23) ?G60.8 - Other hereditary and idiopathic neuropathies (ICD-10) Major depressive disorder, recurrent episode, moderate (02/06/18) ?F33.1 - Major depressive disorder, recurrent, moderate (ICD-10) BIENVENIDO (generalized anxiety disorder) (02/22/21) ?F41.1 - Generalized anxiety disorder (ICD-10) Fibromuscular dysplasia of renal artery (02/22/21) ?I77.3 - Arterial fibromuscular dysplasia (ICD-10) Dyslipidemia (high LDL; low HDL) (03/01/18) ?E78.5 - Hyperlipidemia, unspecified (ICD-10) Acute kidney failure, unspecified (03/25/23) ?N17.9 - Acute kidney failure, unspecified (ICD-10) Small bowel obstruction ?K56.609 - Unspecified intestinal obstruction, unspecified as to partial versus complete obstruction (ICD-10) POLST (Physician Orders for Life-Sustaining Treatment) (~08/26/21) ?Z78.9 - Other specified health status (ICD-10) History of renal stone ?Z87.442 - Personal history of urinary calculi (ICD-10) History of DVT (deep vein thrombosis) ?Z86.718 - Personal history of other venous thrombosis and embolism (ICD-10) History of ischemic bowel disease (~2005) ?Z87.19 - Personal history of other diseases of the digestive system (ICD-10) Bleeding gastric varices (~2012) ?I86.4 - Gastric varices (ICD-10) Surgical History H/O gastrostomy ?Z98.890 - Other specified postprocedural states (ICD-10) S/P laparotomy with lysis of adhesions ?Z98.890 - Other specified postprocedural states (ICD-10) Ileostomy status (02/22/21) ?Z93.2 - Ileostomy status (ICD-10) S/P bunionectomy ?Z98.890 - Other specified postprocedural states (ICD-10) S/P repair of ventral hernia ?Z98.890 - Other specified postprocedural states (ICD-10) ?Z87.19 - Personal history of other diseases of the digestive system (ICD-10) H/O thumb surgery ?Z98.890 - Other specified postprocedural states (ICD-10) S/P carpal tunnel release ?Z98.890 - Other specified postprocedural states (ICD-10) Status post bilateral knee replacements (~2014) ?Z96.653 - Presence of artificial knee joint, bilateral (ICD-10) S/P colectomy ?Z90.49 - Acquired absence of other specified parts of digestive tract (ICD- 10) S/P gastric bypass ?Z98.84 - Bariatric surgery status (ICD-10) Social History What is your current living situation?: I presently have a place to live Problems where you live: no known problems Problems where you live details: n/a In the past 12 months, utilities in danger of being shut off: no In past 12 months, lack of transportation kept you from medical appts, meetings, work, or getting things needed for daily living: no In the past 12 mos, have been you worried that your food would run out before you had money to buy more?: never true In the past 12 mos, the food you bought just didn't last and you didn't have money to buy more?: sometimes true Smoking Status: Never smoker Do you use any of these nicotine containing products: None Second hand tobacco smoke exposure: No How often do you have a drink containing alcohol: monthly or less How many standard drinks containing alcohol do you have on a typical day: 1 or 2 AUDIT-C Alcohol total score: 1 Non-prescribed substance use: denies use How often does anyone, including family, friends and others, physically hurt you : never How often does anyone, including family, friends and others, insult or talk down to you: never How often does anyone, including family, friends and others, threaten you with harm: never How often does anyone, including family, friends and others, scream or curse at you: never service: No Health Related Social Needs: food insecurity (Z59.41) Exam Narrative: Exam Narrative: On examination in room 4, on the left side just under her right breast, clearly a rash of shingles. Corresponding to the T5 dermatome. Lesions are not yet all crusted, and there appears to be some fresh, dew drops on a joaquin [place] no secondary infection is noted, Const: Vital Signs, click to edit/add: Vital Signs - 24 hr 08/27/24 09:58 Temperature 96.3 F L Pulse Rate [Pulse Oximeter] 69 Respiratory Rate 22 Blood Pressure [Ri ght Upper Arm] 115/69 Oxygen Delivery Me thod Room Air Documenting provider has reviewed patient's vital signs: yes Course Vital Signs Vital signs: Initial Vital Signs Temperature 96.3 F L 08/27/24 09:58 Temperature Source Temporal Artery Scan 08/27/24 09:58 Pulse Rate 69 08/27/24 09:58 Respiratory Rate 22 08/27/24 09:58 Blood Pressure 115/69 08/27/24 09:58 Blood Pressure Mean 84 08/27/24 09:58 Blood Pressure Position Sitting 08/27/24 09:58 Oxygen Delivery Method Room Air 08/27/24 09:58 Vital Signs Temperature 96.3 F L 08/27/24 09:58 Pulse Rate 69 08/27/24 09:58 Respiratory Rate 22 08/27/24 09:58 Blood Pressure 115/69 08/27/24 09:58 Oxygen Delivery Method Room Air 08/27/24 09:58 Temperature 96.3 F L 08/27/24 09:58 Pulse Rate 69 08/27/24 09:58 Respiratory Rate 22 08/27/24 09:58 Blood Pressure 115/69 08/27/24 09:58 Oxygen Delivery Method Room Air 08/27/24 09:58 MDM - Skin/Abscess/Foreign Bdy MDM Narrative Medical decision making narrative: I suspect that this is shingles given the dermatomal distribution, she would be within the [place]. Treatment, not 72 hours but given her age, but her immunocompromised state. In the fact that there is still lesions erupting. I do not recommend prednisone here, but some low-dose oxycodone at nighttime especially will help her pain, she does not have to worry about constipation as she has ileostomy. I did warn her about combination with alcohol and she said she does not drink. Differential Diagnosis Differential diagnosis: Likely abscess of skin or subcutaneous tissue, viral exanthem, dermatophytosis, urticaria, herpes zoster, allergic reaction to drug, cellulitis, eczema, insect bites, impetigo and contact dermatitis Medical Records Attestation: I reviewed the patient's medical records. Lab Data Attestation: I reviewed the patient's lab results. Lab results narrative: Previous GFR was normal Discharge Plan Discharge Clinical Impression: Shingles rash Patient Disposition: Home, Self-Care Condition: Stable Instructions: Shingles (ED) Additional Instructions: Home rest use the valtrex (antiviral medication) for the prescribed period of time, recommend use of the low-dose oxycodone at night to help his sleep. Covering this area will limit the contagiousness of this. It is only transmitted by touch in the issue cover this up you can transmitted to anywhere else. I recommend you follow-up with your primary care physician within the next 10-12 days for recheck. Activity Level: Light activity Discharge Diet: Regular Prescriptions: New valacyclovir [Valtrex] 1 gram tablet 1,000 mg PO TID Qty: 21 2RF oxycodone 5 mg tablet 5 mg PO QHS PRN (Reason: pain) Qty: 10 0RF No Action metoprolol succinate 50 mg tablet extended release 24 hr 50 mg PO DAILY hydrochlorothiazide 12.5 mg tablet 12.5 mg PO DAILY lactase 3,000 unit tablet 3,000 unit PO QID PRN Rx Instructions: administer with meals and/or snacks acetaminophen 500 mg tablet 1,000 mg PO 3XD PRN cholecalciferol (vitamin D3) 50 mcg (2,000 unit) capsule 50 mcg PO DAILY furosemide 20 mg tablet 20 mg PO MOFR Rx Instructions: MON AND FRI cetirizine 5 mg tablet 10 mg PO HS PRN sennosides [Evac-U-Gen (sennosides)] 8.6 mg tablet 8.6 mg PO BID PRN Hair, Skin and Nails (biotin) 10,000 mcg tablet,chewable 1 mcg PO DAILY Centrum Adult 50 Plus 80 mcg tablet,chewable 2 tab PO DAILY@1200 venlafaxine 75 mg tablet 75 mg PO Q12H melatonin 3 mg tablet 5 mg PO HS omeprazole 40 mg capsule,delayed release(DR/EC) 40 mg PO DAILY fluticasone propionate 50 mcg/actuation spray,suspension 2 spray INTRANASAL DAILY PRN diclofenac sodium 1 % gel 4 g topical QID PRN (Reason: pain) meclizine 12.5 mg tablet 12.5 mg PO TID PRNQty: 20 0RF hydroxyzine HCl 25 mg tablet 25 mg PO Q6H PRN levothyroxine 175 mcg tablet 175 mcg PO DAILY losartan 100 mg tablet 100 mg PO HS pregabalin 75 mg capsule 100 mg PO BID atorvastatin 20 mg tablet 20 mg PO HS docusate sodium 100 mg capsule 100 mg PO DAILY oxybutynin chloride 5 mg tablet extended release 24hr 5 mg PO DAILY bupropion HCl 100 mg tablet 100 mg PO TID nystatin 100,000 unit/gram powder 1 applic topical TID PRN Rx Instructions: apply to groin folds three times daily as needed. Follow Up/Referrals: Prabha Nice PA-C [Primary Care Provider] - Stand Alone Forms: [facility] Info Instructions
--- OUTSIDE RECORDS SUMMARY | 2024-08-27 10:23 | XMS_ITS | Clinical Summary ---
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 Blood products may be delayed. Draw patient 24 hours prior to transfusion. 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 Overview (02/22/2021): diagnosed [place] 2009 HTN (hypertension) 02/22/2021 Hypothyroidism (acquired) 02/22/2021 [...] Department Care Team Description 08/26/2024 Nurse Triage [facility] [address] [place] [address] Prabha Nice PA Rash 08/08/2024 Telephone [facility] [address] [place] [address] Prabha Nice PA Questions (Sleep medication ) 08/01/2024 9:50 AM CDT Office Visit [address] [address] Prabha Nice PA Tremors (When she gets anxious she starts to shake and her hands with jerk); Referral (Cancelled cardiology appt as she didn't have a ride-never got rescheduled-wants to make sure it's ok that she hasn't gone yet); Sleep Problem (Unable to sleep at night) 08/01/2024 Telephone [facility] [id number] [place] [address] [address] [place] [address] Ehsan Richter RN Follow Up (CT prep) 08/01/2024 Travel 07/18/2024 Telephone [facility] [address] [place] [address] Prabha Nice PA Medication Management 07/16/[address] [address] Prabha Nice PA Refill Request (/albuterol HFA (PRO-AIR; VENTOLIN; PROVENTIL) ) 06/26/2024 Refill [facility] [address] [place] [address] Prabha Nice PA Refill Request (Meclizine) 06/11/2024 Orders Only [facility] [address] [place] [address] Catalina Charles MD <No scans attached> 05/29/2024 Telephone [facility] [address] [place] [address] Prabha Nice PA Medication Management [...] on file Legal Sex Female 5:18 AM INCLUSION MANAGER Gender Identity Not on file Sexual Orientation [...] 156 cm (5' 1.42) 03/19/2024 4:28 PM INCLUSION MANAGER Body Mass Index 37.28 03/19/2024 4:28 PM INCLUSION MANAGER Plan of Treatment Health Maintenance Due [...] 02/13/2024, , 03/01/2018, Additional history exists Insurance [facility] MR MEDICARE PART A HB ONLY Advance Directives Documents on File Type Date Recorded Patient Rn Research Maureen eng POL 07/18/2023 * Full Code (Latest Code Status on File) Date Activated Date Inactivated Comments 01/16/2024 11:27 AM 01/17/2024 2:07 AM Question Answer Comments Code Status Discussion: Reviewed Preferences Care Teams Scarf And Anneal Operator Relationship Specialty Start Date End Date Prabha Nice PA [address] [facility] [address] PCP - General Physician Occupational Health And Safety Officer 05/18/23
--- OUTSIDE RECORDS SUMMARY | 2024-08-27 10:23 | XMS_ITS | Clinical Summary ---
Author Organization [facility] Address [address] [place] [address] Care Team Providers Care Chief Deputy Court Clerk Name Role Phone Prabha Nice PA-C Primary Care Provider Allergies Active Allergy Reactions [...] in an abandoned building, in an overnight senior care, or couch-surfing.) No 05/26/2024 Are you worried [...] on file Legal Sex Female 3:41 AM FACILITY SALES AND ADMIN Gender Identity Not on file Sexual Orientation Not on file Last Filed Vital Signs Vital Sign Reading Time Taken Comments Blood Pressure 135/76 05/27/2024 3:25 PM FACILITY SALES AND ADMIN Pulse 96 05/27/2024 3:25 PM FACILITY SALES AND ADMIN Temperature 36.9 C (98.4 F) 05/27/2024 3:25 PM FACILITY SALES AND ADMIN Respiratory Rate 18 05/27/2024 3:25 PM FACILITY SALES AND ADMIN Oxygen Saturation 97% 05/27/2024 3:25 PM FACILITY SALES AND ADMIN Inhaled Oxygen Concentration - - Weight 90.6 kg (199 lb 11.2 oz) 05/26/2024 8:42 AM FACILITY SALES AND ADMIN Height 160 cm (5' 3) 05/26/2024 8:42 AM FACILITY SALES AND ADMIN Body Mass Index 35.38 05/26/2024 8:42 AM FACILITY SALES AND ADMIN Plan of Treatment Health Maintenance Due Date [...] BASIC METABOLIC PANEL Timed 05/26/2024 3:09 AM FACILITY SALES AND ADMIN from Last 3 Months or Most Recently Relevant to Health Maintenance Results * (ABNORMAL) Basic metabolic panel (05/26/2024 3:09 AM FACILITY SALES AND ADMIN) Sodium 141 135 - 145 mmol/L 05/26/2024 3:53 AM [facility] Potassium 4.9 3.4 - 5.3 mmol/L 05/26/2024 3:53 AM [facility] Chloride 107 98 - 107 mmol/L 05/26/2024 3:53 AM [facility] Carbon Dioxide (CO2) 24 22 - 29 mmol/L 05/26/2024 3:53 AM [facility] Anion Gap 10 7 - 15 mmol/L 05/26/2024 3:53 AM [facility] Urea Nitrogen 25.2(H) 8.0 - 23.0 mg/dL 05/26/2024 3:53 AM [facility] Creatinine 0.78 0.51 - 0.95 mg/dL 05/26/2024 3:53 AM [facility] GFR Estimate 78 >60 mL/min/1.7 3m2 05/26/2024 3:53 AM [facility] Comment:eGFR calculated usin g 2020 CKD-EPI equation. Calcium 8.9 8.8 - 10.4 mg/dL 05/26/2024 3:53 AM [facility] Comment:Reference intervals for this test were updated on 11/14/2023 to reflect our healthy population more accurately. There may be differences in the flagging of prior results with similar values performed with this method. Those prior results can be interpreted in the context of the updated reference intervals. Glucose 139(H) 70 - 99 mg/dL 05/26/2024 3:53 AM [facility] Blood STRUCTURE OF RIGHT UPPER LIMB / Unknown Venipuncture / Unknown 05/26/2024 3:09 AM FACILITY SALES AND ADMIN 05/26/2024 3:26 AM FACILITY SALES AND ADMIN us Heriberto Morocho MD LAB - BLOOD ORDERABLES Final Result LABORATORY [facility] [address], [address] [place] [address], [facility] [phone] from Last 3 Months or Most Recently Relevant to Health Maintenance Insurance [employer] MEDICARE ADVANTAGE [employer] MEDICARE [employer]VANTAGE Advance Directives For more information, please contact: [phone] * Full Code (Latest Code Status on [...] nt/ legal decision maker Care Teams Chief Deputy Court Clerk Relationship Specialty Start Date End Date Prabha Nice PA-C [address] [place] [address] PCP - General 05/26/24
== END 2024-08-27 10:28 | disposition home or self-care (01) ==
PROVIDERS: Emergency Provider Family Medicine; PCP Physician Assistant
DX: B02.9 Zoster without complications (principal)
CPT/HCPCS: 99283

== ENCOUNTER 2024-11-14 11:49 | Outpatient (CLI) | payer MEDICARE, OTHER, SELFPAY | END 2024-11-14 11:50 | disposition home or self-care (01) | PROVIDERS: PCP Physician Assistant; Visit Provider Family Medicine | DX: R06.02 Shortness of breath (principal); R42 Dizziness and giddiness | CPT/HCPCS: A0425; A0429 ==

== ENCOUNTER 2024-11-14 12:35 | Emergency (ER) | payer MEDICARE, OTHER, SELFPAY ==
--- OUTSIDE RECORDS SUMMARY | 2002-02-11 19:00 | XMS_ITS | Continuity of Care Document ---
Author Organization MALKA Mirza Address [address] [place] [address] Phone Care Team Providers Care Armhole Baster Hand Name Role Phone Jani EASLEY MD, Augustine Unavailable Unavailable Advance Directives Directive Yes / No Effective Date File Name No Information Encounters Encounter Description Practice Location Reason(s) For Visit Diagnoses Date Provider Providers Copied on Encounter MALKA Mirza, [address], [place], [place], [id number], [place] tel:[phone] No Information 5200 2 Jani EASLEY Augustine. [address], [facility], [place], [address], [place]. tel:[phone] Referring Provider: Fransisco Cortes MD, [address] [place] [address] [facility], [place], [address]. tel:[phone] Family History Family Member Type Diagnosis Age At Onset No Information Payers Payer name Insurance type Covered green party ID Authordemetriaa eusebia(s) [facility] [id number] Social History Type Description Quantity Date Captured [...]
[2024-11-14] VITALS (19 sets, daily range): BP systolic 129–162; BP diastolic 56–100; PULSE 63–84; RESP 15–21; TEMP 36.2; O2SAT 92–99; BMI 35.4
--- OUTSIDE RECORDS SUMMARY | 2024-11-14 12:37 | XMS_ITS | Clinical Summary ---
Author Organization [employer] [facility] Address [address] [place] [address] Care Team Providers Care Hl7 Interface Developer Name Role Phone Prabha Nice Primary Care Provider [phone] Allergies Active Allergy Reactions Criticality Noted Date Comments Blood-Group Specific Substance Other - Describe In Comment Field 02/13/2024 Patient has an anti-Rose Mary antibody. Blood products may be delayed. Draw patient 24 hours prior to transfusion. For [employer] testing, draw one red top and two purple top tubes for all Type and Screen orders. Droperidol Rash 02/22/2021 Polyglactin *Unknown 03/04/2024 Polyglactin 370 Rash 04/29/2011 Vicryl sutures--rash, itching Metoclopramide Rash 02/22/2021 Sulfa (Sulfonamide Antibiotics) Rash 02/22/2021 Sulfamethoxazole-Trimetho prim Rash Medium 05/23/2011 Sutures Rash 04/29/2011 Vicryl sutures--rash, itching Medications acetaminophen 500 mg tabletIndications: Chronic low back pain, unspecified back pain laterality, unspecified whether sciatica present Take 2 Tablets (1,000 mg) by mouth three times daily. 180 Tablet 11 10/01/19 25 Active albuterol HFA 90 mcg/actuation inhalerIndications :Wheezing Inhale 1-2 Puffs by mouth every 4 hours if needed for Shortness Of Breath or Wheezing. 18 g 11 10/01/19 25 Active atorvastatin 20 mg tabletIndications: Mixed hyperlipidemia Take 1 Tablet (20 mg) by mouth at bedtime. 90 Tablet 3 10/01/19 25 Active buPROPion 100 mg HCl tabletIndications: MDD (major depressive disorder), recurrent episode, moderate (HC) Take 1 Tablet (100 mg) by mouth two times daily. Based on updated ISMP guidelines, DO NOT crush or chew. 180 Tablet 10/01/19 25 Active cetirizine 10 mg tabletIndications: Seasonal allergic rhinitis due to pollen Take 1 Tablet (10 mg) by mouth once daily. 90 Tablet 10/01/19 25 Active cholecalciferol (Vitamin D-3) 2,000 unit capsuleIndications :Vitamin D deficiency Take 1 Capsule (2,000 units) by mouth once daily. 90 Capsule 10/01/19 25 Active diclofenac topical 1 % gelIndications:Chr onic pain of both knees Apply 4 g topically to affected area(s) four times daily. 100 g 10/01/19 25 Active docusate 100 mg capsuleIndications :Chronic constipation Take 1 Capsule (100 mg) by mouth once daily. 90 Capsule 10/01/19 25 Active fluticasone (50 mcg per actuation) nasal solution (FLONASE)Indicatio ns:Non-seasonal allergic rhinitis due to pollen Inhale 2 Sprays in both nostrils once daily. 48 g 10/01/19 25 Active furosemide 20 mg tabletIndications: Peripheral edema TAKE 1 TABLET BY MOUTH EVERY MONDAY AND MONDAY 24 Tablet 10/01/19 25 Active hydroCHLOROthiazid e 12.5 mg tabletIndications: Primary hypertension Take 1 Tablet (12.5 mg) by mouth once daily in the morning. 90 Tablet 10/01/19 25 Active hydrOXYzine HCL 25 mg tabletIndications: Panic attacks Take 25 mg bid for anxiety. Doses must be taken at least 6 hours apart. 180 Tablet 10/01/19 25 Active lactase 3,000 unit tabletIndications: Lactose intolerance Take 1 Tablet (3,000 units) by mouth 4 times daily if needed for Lactose Intolerance. 100 Tablet 10/01/19 25 Active levothyroxine 175 mcg tabletIndications: Hypothyroidism (acquired) Take 1 Tablet (175 mcg) by mouth before breakfast. 90 Tablet 10/01/19 25 Active Lidocaine-Hydrocor tisone Lamont 3-0.5 % topical creamIndications:P eripheral sensory neuropathy Apply topically to affected area(s) at bedtime if needed (nerupathy in feet). 28.3 g 2 10/01/19 25 Active losartan 100 mg tabletIndications: Primary hypertension Take 1 Tablet (100 mg) by mouth once daily. 90 Tablet 10/01/19 25 Active meclizine 12.5 mg tabletIndications: Vertigo Take 1 Tablet (12.5 mg) by mouth 3 times daily if needed for Vertigo. 60 Tablet 2 10/01/19 25 Active melatonin 3 mg tabletIndications: Insomnia, idiopathic TAKE 1 & 1/2 TABLETS (4.5 MG) BY MOUTH EVERY NIGHT AT BEDTIME 135 Tablet 10/01/19 25 Active metoprolol succinate (Toprol XL) 50 mg sustained-release tabletIndications: Nonrheumatic mitral valve stenosis Take 1 Tablet (50 mg) by mouth once daily. 90 Tablet 10/01/19 25 Active Multivitamin Cmb No.21-Iron-FA (Certavite-Antioxi dant) 18-400 mg-mcg tabIndications:Ile ostomy status (HC) Take 2 Tablets by mouth once daily. 180 Tablet 10/01/19 25 Active nortriptyline 10 mg capsuleIndications :Peripheral sensory neuropathy,Chronic insomnia Take 1 Capsule (10 mg) by mouth at bedtime. 90 Capsule 10/01/19 25 Active omeprazole 40 mg Delayed-Release capsuleIndications :Chronic GERD Take 1 Capsule (40 mg) by mouth once daily before a meal. 90 Capsule 10/01/19 25 Active oxybutynin 5 mg tabletIndications: OAB (overactive bladder) Take 1 Tablet (5 mg) by mouth two times daily. 180 Tablet 10/01/19 25 Active triamcinolone 0.1 % ointmentIndication s:Contact dermatitis, unspecified contact dermatitis type, unspecified trigger Apply topically to affected area(s) two times daily. 80 g 10/01/19 25 Active umeclidinium 62.5 mcg/actuation inhalerIndications :Other emphysema (HC) Inhale 1 Puff by mouth once daily. Discard inhaler 6 weeks after opening or when the counter reads '0' (after all blisters have been used), whichever comes first. 30 Each 10/01/19 25 Active venlafaxine 75 mg tabletIndications: MDD (major depressive disorder), recurrent episode, moderate (HC) Take 1 Tablet (75 mg) by mouth two times daily. 180 Tablet 3 10/01/19 25 Active nystatin powder powderIndications: Intertriginous candidiasis Apply 1 Strip topically to affected area(s) each time if needed (rash in groin, under breasts, around stoma, toes). 60 g 2 10/01/19 25 Active pregabalin 150 mg capsuleIndications :Peripheral sensory neuropathy Take 1 Capsule (150 mg) by mouth two times daily. 180 Capsule 1 10/29/19 25 Active pregabalin 100 mg capsuleIndications :Peripheral sensory neuropathy Take 1 Capsule (100 mg) by mouth two times daily. 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 02/23/20 21 Overview (02/22/2021): diagnosed pelahatchie 2009 HTN (hypertension) 02/22/2021 Hypothyroidism (acquired) 02/22/2021 [...] of gastric bypass 03/01/2018 Overview (02/22/2021): Iam huff Prediabetes 03/01/2018 Major depressive disorder, recurrent episode, mo derate 02/06/2018 Bursitis of shoulder 01/14/2014 Resolved Problems Problem Noted Date Diagnosed Date Resolved Date Neuropathy due to chemotherapeutic drug 05/14/2023 11/28/2023 Paroxysmal A-fib 05/14/2023 08/15/2023 Aortic stenosis 06/06/2018 08/15/2023 Encounters Date Type Department Care Team Description 11/14/2024 Nurse Triage [facility] [address] [place] [address] Prabha Nice PA Fatigue 10/31/2024 Telephone [facility] [address] [place] [address] Prabha Nice PA Questions (pain) 10/25/2024 Telephone [facility] [address] [place] [address] Prabha Nice PA Follow Up 09/30/2024 12:50 PM CDT Office Visit [facility] [address] [place] [address] Prabha Nice PA Medicare ANNUAL (subsequent) Visit 09/30/2024 Travel 09/12/2024 Refill [facility] [address] [place] [address] Prabha Nice PA Refill Request (Furosemide, Hydrochlorothiazide) 09/05/2024 Refill [facility] [address] [facility] [address] Prabha Nice PA Refill Request (Omeprazole) 08/26/2024 Nurse Triage [facility] [address] [facility] [place] [address] Prabha Nice PA Rash from Last 3 Months Immunizations Immunization Administration [...] Answer Date Recorded PHQ-2 TOTAL SCORE 3 09/30/2024 Social Connections Answer Date Recorded Do you often feel lonely or isolated from those around you? 0 09/30/2024 Financial Resource Strain Answer Date R ecorded Difficulty of Paying Living Expenses 3 09/30/2024 Difficulty of Paying Living Expenses Not on file 09/30/2024 Food Insecurity Answer Date Recorded Do you worry your food will run out before you are able to buy more? 1 09/30/2024 Transportation Needs Answer Date Record ed Does lack of transportation keep you from medica l appointments? 2 09/30/2024 Does lack of transportation keep you from work, meetings or getting things that you need? 2 09/30/2024 Housing Stability Answer Date Recorded What is your housing situation today? 1 09/30/2024 Utilities Answer Date Recorded Do you have trouble paying f or utilities (for example, heat, electricity, water, phone)? 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 Gender Identity Not on file Sexual Orientation Not on file Obstetrics History Last Filed Vital Signs Vital Sign Reading Time Taken Comments Blood Pressure 137/76 09/30/2024 12:51 PM CDT Pulse 57 09/30/2024 12:51 PM CDT Temperature 37.2 C (98.9 F) 01/12/2024 10:28 AM CDT Respiratory Rate 18 01/16/2024 1:10 PM CDT Oxygen Saturation 95% 09/30/2024 12:51 PM CDT Inhaled Oxygen Concentration - - Weight 91.6 kg (202 lb) 09/30/2024 12:51 PM CDT Height 158 cm (5' 2.21) 09/30/2024 12:51 PM CDT Body Mass Index 36.7 09/30/2024 12:51 PM CDT Plan of Treatment Health Maintenance Due Date Last Done Comments Hepatitis C screening for age 18-79 1963 Zoster (shingles) series for age 50+ (2 of 3) 09/03/2013 07/09/2013 RSV vaccine for adults or (1 - 1-dose 75+ series) 2021 COVID-19 vaccine series ( season) 2024 02/13/2024, 05/11/2023, 03/09/2022, Additional history exists Influenza Vaccine (#1) 2024 , 02/21/2019, 03/01/2018, Additional history exists BMI (ht and wt on same day) for age 18+ 09/30/2025 09/30/2024, 03/19/2024, 03/19/2024, Additional history exists Depression screening for age 12+ 09/30/2025 09/30/2024, 11/29/2023, 11/28/2023, Additional history exists Medicare Wellness for age 65+ 10/01/2025 09/30/2024, 08/15/2023, 02/22/2021 Tetanus booster 12/27/2032 12/27/2022, 03/02, 09/28/2009 DEXA/DXA scan for age 65+ Addressed 2015 (Verified in Care Everywhere or Patient Record) Overridden with the intention of not completing the topic Pneumococcal series for age 50+ Completed 08/15/2023, 11/11/2014, 09/28/2009, Additional history exists Hepatitis B series for 19+ Aged Out N o longer eligible based on patient's age to complete this topic Procedures Procedure Name Priority Date/Time Associated Diagnosis Comments TSH Routine 09/30/2024 1:52 PM CDT Hypothyroidism (acquired) LIPID PANEL W REFLEX MEASURED LDL Routine 09/30/2024 1:52 PM CDT Hyperlipidemia, unspecified hyperlipidemia type COMP METABOLIC PANEL Routine 09/30/2024 1:52 PM CDT Primary hypertension HEMOGLOBIN A1C Routine 09/30/2024 1:52 PM CDT Hyperglycemia CBC WITH AUTO DIFFERENTIAL Routine 09/30/2024 1:52 PM CDT Primary hypertension CREATININE,ISTAT Routine 09/30/2024 1:51 PM CDT Preprocedural cardiovascular examination from Last 3 Months Results * HEMOGLOBIN A1C (09/30/2024 1:52 PM CDT) HEMOGLOBIN A1C 5.6 <5.7 % [facility] Comment: For the purpose of screening for the presence of diabetes: <5.7% Consistent with the absence of diabetes 5.7-6.4% Consistent with increased risk for diabetes (prediabetes) > or =6.5% Consistent with diabetes This assay result is consistent with a decreased risk of diabetes. Currently, no consensus exists regarding use of hemoglobin A1c for diagnosis of diabetes in children. According to [place] Diabetes Association (ADA) guidelines, hemoglobin A1c <7.0% represents optimal control in non- diabetic patients. Different metrics may apply to specific patient populations. Standards of Medical Care in Diabetes(ADA). Blood BLOOD SPECIMEN / Unknown 09/30/2024 1:52 PM CDT 09/30/2024 1:55 PM CDT Prabha GORE CHEMISTRY Final Resu lt Research Journalist [facility] [address] [place] [address], [facility] [address] [place] [address] * (ABNORMAL) LIPID PANEL W REFLEX MEASURED LDL (09/30/2024 1:52 PM CDT) CHOLESTEROL, TOTAL 197 <200 mg/dL [facility] HDL CHOLESTEROL 54 > OR = 50 mg/dL [facility] TRIGLYCERIDES 282(H) <150 mg/dL [facility] Comment: If a non-fasting specimen was collected, consider repeat triglyceride testing on a fasting specimen if clinically indicated. Nolvia et al. J. of Clin. Lipidol. 2015;9:129-169. LDL-CHOLESTEROL 103(H) mg/dL (calc) [facility] Comment: Reference range: <100 Desirable range <100 mg/dL for primary prevention; <70 mg/dL for patients with CHD or diabetic patients with > or = 2 CHD risk factors. LDL-C is now calculated using the Efra-Laith calculation, which is a validated novel method providing better accuracy than the Friedewald equation in the estimation of LDL-C. Efra SS et al. KIRILL. 2013;310(19): 5947-4608 (http://education.[employer]/faq/HNC355) CHOL/HDLC RATIO 3.6 <5.0 (calc) [facility] NON HDL CHOLESTEROL 143(H) <130 mg/dL (calc) [facility] Comment: For patients with diabetes plus 1 major ASCVD risk factor, treating to a non-HDL-C goal of <100 mg/dL (LDL-C of <70 mg/dL) is considered a therapeutic option. Blood BLOOD SPECIMEN / Unknown 09/30/2024 1:52 PM CDT 09/30/2024 1:55 PM CDT us Prabha GORE CHEMISTRY Final Resu lt Research Journalist [facility] [address] [place] [address], [place] [phone] [facility] [address] [place] [address] * TSH (09/30/2024 1:52 PM CDT) Pathologist [facility] TSH 1.05 0.40 - 4.50 mIU/L [facility] Blood BLOOD SPECIMEN / Unknown 09/30/2024 1:52 PM CDT 09/30/2024 1:55 PM CDT Prabha GORE CHEMISTRY Final Resu lt [facility] [address] [place] [address], [facility] [address] [place] [address] * (ABNORMAL) CBC AND DIFFERENTIAL (09/30/2024 1:52 PM CDT) [facility] WHITE BLOOD CELL COUNT 5.4 3.8 - 10.8 Thousand/u L [facility] RED BLOOD CELL COUNT 4.27 3.80 - 5.10 Million/uL [facility] HEMOGLOBIN 12.5 11.7 - 15.5 g/dL [facility] HEMATOCRIT 39.3 35.0 - 45.0 % [facility] MCV 92.0 80.0 - 100.0 fL [facility] MCH 29.3 27.0 - 33.0 pg [facility] MCHC 31.8(L) 32.0 - 36.0 g/dL [facility] Comment: For adults, a slight decrease in the calculated MCHC value (in the range of 30 to 32 g/dL) is most likely not clinically significant; however, it should be interpreted with caution in correlation with other red cell parameters and the patient's clinical condition. RDW 14.2 11.0 - 15.0 % [facility] PLATELET COUNT 286 140 - 400 Thousand/u L [facility] MPV 10.1 7.5 - 12.5 fL [facility] ABSOLUTE NEUTROPHILS 2,074 1,500 - 7,800 cells/uL [facility] ABSOLUTE LYMPHOCYTES 2,435 850 - 3,900 cells/uL [facility] ABSOLUTE MONOCYTES 707 200 - 950 cells/uL [facility] ABSOLUTE EOSINOPHILS 113 15 - 500 cells/uL [facility] ABSOLUTE BASOPHILS 70 0 - 200 cells/uL [facility] NEUTROPHILS 38.4 % [facility] LYMPHOCYTES 45.1 % [facility] MONOCYTES 13.1 % [facility] EOSINOPHILS 2.1 % [facility] BASOPHILS 1.3 % [facility] Blood BLOOD SPECIMEN / Unknown 09/30/2024 1:52 PM CDT 09/30/2024 1:55 PM CDT us Prabha GORE HEMATOLOGY Final Resu lt Research Journalist [facility] [address] [place] [address], [employer] [address] * (ABNORMAL) COMP METABOLIC PANEL (09/30/2024 1:52 PM CDT) [facility] GLUCOSE 91 65 - 99 mg/dL [facility] Comment: Fasting reference interval UREA NITROGEN (BUN) 22 7 - 25 mg/dL [facility] CREATININE 0.96 0.60 - 1.00 mg/dL [facility] EGFR 61 > OR = 60 mL/min/1. 73m2 [facility] BUN/CREATININE RATIO SEE NOTE: 6 - 22 (calc) [facility] Comment: Not Reported: BUN and Creatinine are within reference range. SODIUM 134(L) 135 - 146 mmol/L [facility] POTASSIUM 5.4(H) 3.5 - 5.3 mmol/L [facility] CHLORIDE 97(L) 98 - 110 mmol/L [facility] CARBON DIOXIDE 29 20 - 32 mmol/L [facility] CALCIUM 9.9 8.6 - 10.4 mg/dL [facility] PROTEIN, TOTAL 7.4 6.1 - 8.1 g/dL [facility] ALBUMIN 4.2 3.6 - 5.1 g/dL [facility] GLOBULIN 3.2 1.9 - 3.7 g/dL (calc) [facility] ALBUMIN/GLOBULIN RATIO 1.3 1.0 - 2.5 (calc) [facility] BILIRUBIN, TOTAL 0.4 0.2 - 1.2 mg/dL [facility] ALKALINE PHOSPHATASE 113 37 - 153 U/L [facility] AST 32 10 - 35 U/L [facility] ALT 21 6 - 29 U/L [facility] Blood BLOOD SPECIMEN / Unknown 09/30/2024 1:52 PM CDT 09/30/2024 1:55 PM CDT us Prabha GORE CHEMISTRY Final Resu lt [facility] [address] [place] [address], [place] [phone] [facility] [address] [place] [address] * CREATININE,ISTAT (09/30/2024 1:51 PM CDT) POCT,CREATININ E, ISTAT 1.1 0.6 - 1.3 mg/dL [employer] Blood BLOOD SPECIMEN / Unknown 09/30/2024 1:51 PM CDT 09/30/2024 1:51 PM CDT us Sergio Solorio MD CHEMISTRY Final Resu lt [facility] [address] [place] [address], [place] [phone] [employer] [employer] [address] [place] [address] from Last 3 Months Insurance [id number] [facility] [place] [id number] [facility] MR MEDICARE PART A HB ONLY Advance Directives Documents on File Type Date Recorded 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
--- OUTSIDE RECORDS SUMMARY | 2024-11-14 12:37 | XMS_ITS | Clinical Summary ---
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 Gender Identity Not on file Sexual Orientation Not on file Last Filed Vital Signs Vital Sign Reading Time Taken Comments Blood Pressure 135/76 05/27/2024 3:25 PM DISPLAY COORDINATOR Pulse 96 05/27/2024 3:25 PM DISPLAY COORDINATOR Temperature 36.9 C (98.4 F) 05/27/2024 3:25 PM DISPLAY COORDINATOR Respiratory Rate 18 05/27/2024 3:25 PM DISPLAY COORDINATOR Oxygen Saturation 97% 05/27/2024 3:25 PM DISPLAY COORDINATOR Inhaled Oxygen Concentration - - Weight 90.6 kg (199 lb 11.2 oz) 05/26/2024 8:42 AM DISPLAY COORDINATOR Height 160 cm (5' 3) 05/26/2024 8:42 AM DISPLAY COORDINATOR Body Mass Index 35.38 05/26/2024 8:42 AM DISPLAY COORDINATOR Plan of Treatment Health Maintenance Due Date Last Done Comments ADVANCE CARE PLANNING 1945 ANNUAL REVIEW OF HM ORDERS 1945 LIPID 1945 TSH W/FREE T4 REFLEX 1945 HEPATITIS C SCREENING 1964 FALL RISK ASSESSMENT 2011 ZOSTER VACCINE (2 of 3) 09/03/2013 07/09/2013 RSV VACCINE (1 - 1-dose 75+ series) 2021 PHQ-2 (once per calendar year) 2024 COVID-19 VACCINE ( season) 2024 02/13/2024, 05/11/2023, 03/09/2022, Additional history exists MEDICARE ANNUAL WELLNESS VISIT 08/14/2024 08/15/2023, 02/22/2021 INFLUENZA VACCINE (#1) 2024 , 02/06/2023, 02/17/2022, Additional history exists DIABETES SCREENING 05/26/2027 05/26/2024, 0 05/25/2024, 03/27/2023, Additional history exists DEXA 08/11/2030 08/12/2015, 08/12/2015 DTAP/TDAP/TD VACCINE (3 - Td or Tdap) 12/27/2032 12/27/2022, 03/21/2012, 09/28/2009 PNEUMOCOCCAL VACCINE 50+ YEARS Completed 08/15/2023, 11/11/2014, 09/28/2009, Additional history exists HPV VACCINE Aged Out No longer eligi ble based on patient's age to complete this topic MENINGITIS VACCINE Aged Out No longer eligible based on patient's age to complete this topic Procedures Procedure Name Priority Date/Time Associated Diagnosis Comments BASIC METABOLIC PANEL Timed 05/26/2024 3:09 AM DISPLAY COORDINATOR from Last 3 Months or Most Recently Relevant to Health Maintenance Results * (ABNORMAL) Basic metabolic panel (05/26/2024 3:09 AM DISPLAY COORDINATOR) Sodium 141 135 - 145 mmol/L 05/26/2024 3:53 AM [facility] Potassium 4.9 3.4 - 5.3 mmol/L 05/26/2024 3:53 AM [facility] Chloride 107 98 - 107 mmol/L 05/26/2024 3:53 AM [facility] Carbon Dioxide (CO2) 24 22 - 29 mmol/L 05/26/2024 3:53 AM [facility] Anion Gap 10 7 - 15 mmol/L 05/26/2024 3:53 AM [facility] Urea Nitrogen 25.2(H) 8.0 - 23.0 mg/dL 05/26/2024 3:53 AM [facility] Creatinine 0.78 0.51 - 0.95 mg/dL 05/26/2024 3:53 AM [facility] GFR Estimate 78 >60 mL/min/1.7 3m2 05/26/2024 3:53 AM [facility] Comment:eGFR calculated usin g 2020 CKD-EPI equation. Calcium 8.9 8.8 - 10.4 mg/dL 05/26/2024 3:53 AM [facility] Comment:Reference intervals for this test were updated on 11/14/2023 to reflect our healthy population more accurately. There may be differences in the flagging of prior results with similar values performed with this method. Those prior results can be interpreted in the context of the updated reference intervals. Glucose 139(H) 70 - 99 mg/dL 05/26/2024 3:53 AM [facility] Blood STRUCTURE OF RIGHT UPPER LIMB / Unknown Venipuncture / Unknown 05/26/2024 3:09 AM DISPLAY COORDINATOR 05/26/2024 3:26 AM DISPLAY COORDINATOR Heriberto Morocho MD LAB - BLOOD ORDERABLES Final Result LABORATORY [facility] [address], [address] [place] [address], [facility] [phone] from Last 3 Months or Most Recently Relevant to Health Maintenance Insurance [employer] MEDICARE ADVANTAGE [employer] MEDICARE ADVANTAGE Advance Directives For more information, please contact: [phone] * Full Code (Latest Code Status on File) Date Activated Date Inactivated Comments 05/26/2024 12:55 AM 05/27/2024 6:58 PM All basic a nd advanced life-sustaining interventions are performed as appropriate Question Answer Comments Code status determined by: Discussion with ty nt/ legal decision maker * Full Code Date Activated Date Inactivated Comments 03/22/2023 6:21 PM 03/27/2023 3:49 PM All basic and advanced life-sustaining interventions are performed as appropriate Question Answer Comments Code status determined by: Discussion with ty nt/ legal decision maker Care Teams Furniture Delivery Driver Relationship Specialty Start Date End Date Prabha Nice PA-C [address] [place] [address] PCP - General 05/26/24
--- NOTE | 2024-11-14 13:16 | CRLHL7_ITS ---
For Patients: As a result of the Century Cures Act, medical imaging exams and procedure reports are released immediately into your electronic medical record. You may view this report before your referring provider. If you have questions, please contact your health care provider. INDICATION: Dyspnea. TECHNIQUE: Chest radiographs, 2 views. COMPARISON: CTA chest 03/04/2024. chest radiograph 10/04/2021. FINDINGS: Cardiovascular/Mediastinum: Normal heart size. Unremarkable. Lungs: No focal consolidation. Linear bandlike opacification in the lungs bilaterally, likely subsegmental atelectasis and/or scarring. Mildly coarsened interstitial lung markings. Airways: Trachea remains midline. Pleura: No pleural effusions or pneumothorax. Bones: No acute osseous abnormalities. Upper abdomen: Unremarkable. IMPRESSION: Mildly coarsened interstitial lung markings diffusely, can be seen with atypical infection or reactive airways disease. No focal consolidation suggestive of pneumonia. Dictated by Bernard Benson MD @ 11/14/2024 3:04:03 PM (Electronically Signed)
[2024-11-14 13:56] LABS: Hematocrit* 34.4 % (33.0-51.0); Hemoglobin* 11.4 gm/dL (12.0-16.0); Immature Granulocytes Abs Auto 0.01 K/uL (0.00-0.30); Immature Granulocytes Pct Auto 0.2 %; Lymphocytes Absolute Auto 2.11 K/uL (0.90-2.90); Mean Corpuscular HGB Conc 33 gm/dL (32-36); Mean Corpuscular Hemoglobin 30 pg (26-34); Mean Corpuscular Volume 89 fL (80-100); RDW Coefficient of Variation % 13.9 % (11.5-15.5); Red Blood Count* 3.87 m/uL (4.00-5.20); White Blood Count* 5.44 K/uL (4.50-11.00)
[2024-11-14 14:05] LABS: Slide Review Reflex No
--- NOTE | 2024-11-14 14:15 | ED.GENADULT ---
HPI - General Adult General Date Seen: 11/14/24 Chief complaint: Unspecified Complaint, Adult Stated complaint: Dizziness Time Seen by Provider: 11/14/24 12:51 Source: patient Mode of arrival: EMS Limitations: no limitations History of Present Illness HPI narrative: Patient is a 79-year-old female presenting to the emergency department on recommendations by her provider. She states she was going to her 10:00 coffee meeting at the [facility]. She states other residents state the patient the pale and more short of breath. Patient states she is always short of breath but does admit she is having increasing shortness of breath over the past 2-3 weeks. When the nurse came and talked to her the staff also thought the patient seemed more short of breath. Patient states she is not feeling any different today than she did 3 weeks ago when the shortness of breath got worse. Denies any associated dizziness, chest pain, headache, vision changes, weakness, numbness, abdominal pain, diarrhea, constipation, fevers, chills. States she feels at her baseline. Last how she is feeling at this time she states she feels very relaxed. She does see a life cycle assessment analyst for heart issue. She is unsure with a heart issue is at this time but last saw the a month ago. States she has had quite a few test done through them in this post a follow-up with them again but was unable to get transport. She is currently working getting medical assistance so she get transported to the appointment. States overall at this point she feels asymptomatic. Related Data Home Medications ?Medication ?Instructions ?Recorded ?Confirmed diclofenac sodium 1 % topical gel 4 g topical QID PRN pain 12/27/22 11/14/24 fluticasone propionate 50 2 spray intranasal DAILY PRN 12/27/22 11/14/24 mcg/actuation nasal spray,suspension melatonin 3 mg tablet 5 mg PO HS insomnia 12/27/22 11/14/24 multivitamin with minerals-folic 2 tab PO DAILY@1200 12/27/22 11/14/24 acid 80 mcg chewable tablet (Centrum Adult 50 Plus) omeprazole 40 mg capsule,delayed 40 mg PO DAILY 12/27/22 11/14/24 release venlafaxine 75 mg tablet 75 mg PO Q12H 12/27/22 11/14/24 acetaminophen 500 mg tablet 1,000 mg PO 3XD PRN 03/22/23 11/14/24 cholecalciferol (vitamin D3) 50 50 mcg PO DAILY 03/22/23 11/14/24 mcg (2,000 unit) capsule furosemide 20 mg tablet 20 mg PO MOFR 03/22/23 11/14/24 cetirizine 5 mg tablet 10 mg PO HS PRN 09/15/23 11/14/24 hydrochlorothiazide 12.5 mg tablet 12.5 mg PO DAILY 09/15/23 11/14/24 lactase 3,000 unit tablet 3,000 unit PO QID PRN 09/15/23 11/14/24 metoprolol succinate 50 mg 50 mg PO DAILY 10/12/23 11/14/24 tablet,extended release 24 hr bupropion HCl 100 mg tablet 100 mg PO TID 05/25/24 11/14/24 docusate sodium 100 mg capsule 100 mg PO DAILY 05/25/24 11/14/24 hydroxyzine HCl 25 mg tablet 25 mg PO Q6H PRN 05/25/24 11/14/24 levothyroxine 175 mcg tablet 175 mcg PO DAILY 05/25/24 11/14/24 losartan 100 mg tablet 100 mg PO HS 05/25/24 11/14/24 nystatin 100,000 unit/gram topical 1 applic topical TID PRN 05/25/24 11/14/24 powder oxybutynin chloride 5 mg 5 mg PO DAILY 05/25/24 11/14/24 tablet,extended release 24 hr pregabalin 75 mg capsule 150 mg PO BID 05/25/24 11/14/24 biotin 10,000 mcg chewable tablet 1 mcg PO DAILY 08/27/24 08/27/24 (Hair, Skin and Nails (biotin)) sennosides 8.6 mg tablet 8.6 mg PO BID PRN 08/27/24 11/14/24 (Evac-U-Gen (sennosides)) Previous Rx's ?Medication ?Instructions ?Recorded meclizine 12.5 mg tablet 12.5 mg PO TID PRN #20 tabs 03/04/24 valacyclovir 1 gram tablet 1,000 mg PO TID #21 tabs 08/27/24 (Valtrex) Allergies Allergy/AdvReac Type Severity Reaction Status Date / Time droperidol Allergy Unknown Verified 08/27/24 10:01 metoclopramide (From Reglan) Allergy Unknown Verified 08/27/24 10:01 Polyglactin Allergy Unknown Verified 08/27/24 10:01 Sulfa (Sulfonamide Allergy Unknown Verified 08/27/24 10:01 Antibiotics) Review of Systems Status of ROS: Reports: 10 or more systems reviewed and unremarkable except as noted in History and below [facility] Medical History Paroxysmal atrial fibrillation with rapid ventricular response ?I48.0 - Paroxysmal atrial fibrillation (ICD-10) Obstructive sleep apnea ?G47.33 - Obstructive sleep apnea (adult) (pediatric) (ICD-10) Mild cognitive impairment ?G31.84 - Mild cognitive impairment of uncertain or unknown etiology (ICD-10) COPD (chronic obstructive pulmonary disease) ?J44.9 - Chronic obstructive pulmonary disease, unspecified (ICD-10) Hypothyroidism ?E03.9 - Hypothyroidism, unspecified (ICD-10) Hyperlipidemia ?E78.5 - Hyperlipidemia, unspecified (ICD-10) Hypertension ?I10 - Essential (primary) hypertension (ICD-10) Hepatic steatosis ?K76.0 - Fatty (change of) liver, not elsewhere classified (ICD-10) SBO (small bowel obstruction) (03/22/23) ?K56.609 - Unspecified intestinal obstruction, unspecified as to partial versus complete obstruction (ICD-10) Pulmonary HTN (05/18/18) ?I27.20 - Pulmonary hypertension, unspecified (ICD-10) CORAL (obstructive sleep apnea) (02/22/21) ?G47.33 - Obstructive sleep apnea (adult) (pediatric) (ICD-10) HTN (hypertension) (02/22/21) ?I10 - Essential (primary) hypertension (ICD-10) COPD (chronic obstructive pulmonary disease) (02/22/21) ?J44.9 - Chronic obstructive pulmonary disease, unspecified (ICD-10) Stage 3a chronic kidney disease (05/14/23) ?N18.31 - Chronic kidney disease, stage 3a (ICD-10) PMR (polymyalgia rheumatica) (02/22/21) ?M35.3 - Polymyalgia rheumatica (ICD-10) Peripheral sensory neuropathy (11/28/23) ?G60.8 - Other hereditary and idiopathic neuropathies (ICD-10) Major depressive disorder, recurrent episode, moderate (02/06/18) ?F33.1 - Major depressive disorder, recurrent, moderate (ICD-10) BIENVENIDO (generalized anxiety disorder) (02/22/21) ?F41.1 - Generalized anxiety disorder (ICD-10) Fibromuscular dysplasia of renal artery (02/22/21) ?I77.3 - Arterial fibromuscular dysplasia (ICD-10) Dyslipidemia (high LDL; low HDL) (03/01/18) ?E78.5 - Hyperlipidemia, unspecified (ICD-10) Acute kidney failure, unspecified (03/25/23) ?N17.9 - Acute kidney failure, unspecified (ICD-10) Small bowel obstruction ?K56.609 - Unspecified intestinal obstruction, unspecified as to partial versus complete obstruction (ICD-10) POLST (Physician Orders for Life-Sustaining Treatment) (~08/26/21) ?Z78.9 - Other specified health status (ICD-10) History of renal stone ?Z87.442 - Personal history of urinary calculi (ICD-10) History of DVT (deep vein thrombosis) ?Z86.718 - Personal history of other venous thrombosis and embolism (ICD-10) History of ischemic bowel disease (~2005) ?Z87.19 - Personal history of other diseases of the digestive system (ICD-10) Bleeding gastric varices (~2012) ?I86.4 - Gastric varices (ICD-10) Surgical History H/O gastrostomy ?Z98.890 - Other specified postprocedural states (ICD-10) S/P laparotomy with lysis of adhesions ?Z98.890 - Other specified postprocedural states (ICD-10) Ileostomy status (02/22/21) ?Z93.2 - Ileostomy status (ICD-10) S/P bunionectomy ?Z98.890 - Other specified postprocedural states (ICD-10) S/P repair of ventral hernia ?Z98.890 - Other specified postprocedural states (ICD-10) ?Z87.19 - Personal history of other diseases of the digestive system (ICD-10) H/O thumb surgery ?Z98.890 - Other specified postprocedural states (ICD-10) S/P carpal tunnel release ?Z98.890 - Other specified postprocedural states (ICD-10) Status post bilateral knee replacements (~2014) ?Z96.653 - Presence of artificial knee joint, bilateral (ICD-10) S/P colectomy ?Z90.49 - Acquired absence of other specified parts of digestive tract (ICD-10) S/P gastric bypass ?Z98.84 - Bariatric surgery status (ICD-10) Social History What is your current living situation?: I presently have a place to live Problems where you live: no known problems Problems where you live details: n/a In the past 12 months, utilities in danger of being shut off: no In past 12 months, lack of transportation kept you from medical appts, meetings, work, or getting things needed for daily living: no In the past 12 mos, have been you worried that your food would run out before you had money to buy more?: never true In the past 12 mos, the food you bought just didn't last and you didn't have money to buy more?: sometimes true Smoking Status: Never smoker Do you use any of these nicotine containing products: None Second hand tobacco smoke exposure: No How often do you have a drink containing alcohol: monthly or less How many standard drinks containing alcohol do you have on a typical day: 1 or 2 AUDIT-C Alcohol total score: 1 Non-prescribed substance use: denies use How often does anyone, including family, friends and others, physically hurt you: never How often does anyone, including family, friends and others, insult or talk down to you: never How often does anyone, including family, friends and others, threaten you with harm: never How often does anyone, including family, friends and others, scream or curse at you: never service: No Health Related Social Needs: food insecurity (Z59.41) Exam Narrative: Exam Narrative: Const: Well-nourished, Well-developed, in no distress Eyes: PERRL, no conjunctival injection, and symmetrical lids HENT: Atraumatic external nose and ears. Moist mucous membranes. Neck: Symmetric, trachea midline, No thyromegaly. CVS: RRR, No murmurs or gallops. Peripheral pulses 2+ and equal in all extremities RESP: Unlabored respiratory effort. Clear to auscultation bilaterally. GI: Nontender/Nondistended, No rebound or guarding. Colostomy bag in place MSK:Extremities w/o deformity, Normal Active ROM Skin: Warm, Dry. No rashes or lesions. Neuro: Normal Muscle tone, No focal neurological deficits. Psych: Awake, Alert, & Oriented x3. Appropriate mood and affect. Const: Vital Signs, click to edit/add: Vital Signs - 24 hr 11/14/24 12:39 11/14/24 12:45 11/14/24 13:00 Temperature 97.1 F L Pulse Rate 65 69 Pulse Rate [Pulse Oximeter] 63 Respiratory Rate 16 Blood Pressure Blood Pressure [Le ft Upper Arm] 136/67 Pulse Oximetry 97 94 93 Oxygen Delivery Me thod Room Air 11/14/24 13:03 11/14/24 13:04 11/14/24 13:15 Temperature Pulse Rate 68 69 64 Pulse Rate [Pulse Oximeter] Respiratory Rate 16 16 Blood Pressure 146/56 H Blood Pressure [Le ft Upper Arm] Pulse Oximetry 93 92 96 Oxygen Delivery Me thod 11/14/24 13:30 11/14/24 13:33 11/14/24 14:06 Temperature Pulse Rate 66 68 80 Pulse Rate [Pulse Oximeter] Respiratory Rate 15 Blood Pressure 147/69 H 142/100 H Blood Pressure [Le ft Upper Arm] Pulse Oximetry 95 95 99 Oxygen Delivery Me thod 11/14/24 14:15 11/14/24 14:30 11/14/24 14:33 Temperature Pulse Rate 69 69 68 Pulse Rate [Pulse Oximeter] Respiratory Rate 21 20 Blood Pressure 162/68 H Blood Pressure [Le ft Upper Arm] Pulse Oximetry 98 96 98 Oxygen Delivery Me thod Course Vital Signs Vital signs: Initial Vital Signs Temperature 97.1 F L 11/14/24 12:39 Temperature Source Temporal Artery Scan 11/14/24 12:39 Pulse Rate 63 11/14/24 12:39 Respiratory Rate 16 11/14/24 12:39 Blood Pressure 136/67 11/14/24 12:39 Blood Pressure Mean 90 11/14/24 12:39 Blood Pressure Position Supine 11/14/24 12:39 Pulse Oximetry 97 11/14/24 12:39 Oxygen Delivery Method Room Air 11/14/24 12:39 Vital Signs Temperature 97.1 F L 11/14/24 12:39 Pulse Rate 63 11/14/24 12:39 Respiratory Rate 16 11/14/24 12:39 Blood Pressure 136/67 11/14/24 12:39 Pulse Oximetry 97 11/14/24 12:39 Oxygen Delivery Method Room Air 11/14/24 12:39 Temperature 97.1 F L 11/14/24 12:39 Pulse Rate 68 11/14/24 14:33 Respiratory Rate 20 11/14/24 14:33 Blood Pressure 162/68 H 11/14/24 14:33 Pulse Oximetry 98 11/14/24 14:33 Oxygen Delivery Method Room Air 11/14/24 12:39 Medical Decision Making MDM Narrative Medical decision making narrative: Patient is a 79-year-old female presenting for shortness of breath. The differential diagnosis of shortness of breath is broad and includes common etiologies such as COPD, asthma, pneumonia, viral syndrome, etc. More serious etiologies considered include PE, CHF, coronary artery disease, pneumothorax, aortic dissection, aortic aneurysm. She is currently asymptomatic according her but does admit to the shortness of breath that she has at her baseline getting worse over the past 3 weeks. This referral could be related to this heart issue she has full in all 4 but able to work her up to make sure there is nothing else going on. Will do a CBC, BMP, EKG, troponin, magnesium, chest x-ray, D-dimer, BNP, viral swabs. Lab work returned showing no acute concerning abnormalities. BNP appears at baseline. Does have a slightly low sodium with slightly elevated potassium but not enough be of concern. Troponin EKG within normal limits. Chest x-ray shows some mild interstitial lung markings that can be seen for atypical infection or reactive air disease but no obvious signs pneumonia. With her otherwise appearing well I do not believe this is an atypical infection and does not appear to be reactive airway disease. On my review vital signs are stable throughout time in in the emergency department. Oximetry stayed in the mid to high 90s. 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 At this time she is safe for discharge. She is agreeable to this plan. Lab Data Labs: Lab Results 11/14/24 11/14/24 11/14/24 Range/Units 13:16 13:17 13:40 WBC 5.44 (4.50-11.00) K/uL RBC 3.87 L (4.00-5.20) m/uL Hgb 11.4 L (12.0-16.0) gm/dL Hct 34.4 (33.0-51.0) % MCV 89 (80-100) fL MCH 30 (26-34) pg MCHC 33 (32-36) gm/dL RDW Coeff of Deedee 13.9 (11.5-15.5) % Plt Count 238 (140-440) K/uL Neut % (Auto) 45.7 (42.0-72.0) % Lymph % (Auto) 38.8 (20-44) % Johnson % (Auto) 14.2 H (0.0-11.0) % Eos % (Auto) 0.7 (0.0-7.0) % Baso % (Auto) 0.4 (0.0-3.0) % Neut # (Auto) 2.49 (1.7-7.0) K/uL Lymph # (Auto) 2.11 (0.90-2.90) K/uL Johnson # (Auto) 0.80 (0.00-0.90) K/UL Eos # (Auto) 0.04 (0.00-0.50) K/uL Baso # (Auto) 0.02 (0.00-0.30) K/uL Abs Immat Gran (auto) 0.01 (0.00-0.30) K/uL Imm/Tot Granulo (auto) 0.2 % D-Dimer Quant (PE/DVT) 0.45 (0.00-0.50) ug/ml Sodium 131 L (135-149) mmol/L Potassium 5.3 H (3.6-5.1) mmol/L Chloride 100 (96-114) mmol/L Carbon Dioxide 27 (20-32) mmol/L Anion Gap 4 L (7-15) mEq/L BUN 23 (7-30) mg/dL Creatinine 0.8 (0.5-1.5) mg/dL Estimated Creat Clear 38.35 Estimated GFR 75 ml/min Glucose 92 (60-115) mg/dL Calcium 9.4 (8.4-10.6) mg/dL Magnesium 2.1 (1.5-2.6) mg/dL NT-Pro-B Natriuret Pep 1310 H (See Note) pg/mL SARS-CoV-2 (PCR) Negative SARS-CoV-2 (Negative) Influenza Type A (PCR) Negative PCR FLU A (Negative) Influenza Type B (PCR) Negative PCR FLU B (Negative) RSV (PCR) Negative PCR RSV (Negative) POC Creatinine 0.9 (0.6-1.3) mg/dl POC Troponin I 0.00 L (0.01-0.04) ng/ml Imaging Data Chest x-ray: Attestation: I have reviewed the pertinent imaging results. Radiologist's impression: Mildly coarsened interstitial lung markings diffusely, can be seen with atypical infection or reactive airways disease. No focal consolidation suggestive of pneumonia. Dictated by Bernard Benson MD @ 11/14/2024 3:04:03 PM ECG Data Attestation: I personally reviewed and interpreted this ECG as follows: Prior ECG tracings: available for review Interpretation: Normal sinus rhythm with a first-degree AV block, rate 62 beats per minute, normal QRS interval, normal axis, no ST or T-wave abnormalities. Overall EKG looks similar to previous EKG from 03/04/2024 other than now the slightly delayed OR interval Discharge Plan Discharge Clinical Impression: Chronic shortness of breath Patient Disposition: Home, Self-Care Condition: Stable Instructions: Shortness of Breath (ED) Additional Instructions: Continue to work toward scan your fall appointment with cardiology. Return to emergency department for new or worsening symptoms. Recommend follow-up with your primary care provider. Prescriptions: No Action metoprolol succinate 50 mg tablet extended release 24 hr 50 mg PO DAILY hydrochlorothiazide 12.5 mg tablet 12.5 mg PO DAILY lactase 3,000 unit tablet 3,000 unit PO QID PRN Rx Instructions: administer with meals and/or snacks acetaminophen 500 mg tablet 1,000 mg PO 3XD PRN cholecalciferol (vitamin D3) 50 mcg (2,000 unit) capsule 50 mcg PO DAILY furosemide 20 mg tablet 20 mg PO MOFR Rx Instructions: MON AND FRI cetirizine 5 mg tablet 10 mg PO HS PRN sennosides [Evac-U-Gen (sennosides)] 8.6 mg tablet 8.6 mg PO BID PRN Hair, Skin and Nails (biotin) 10,000 mcg tablet,chewable 1 mcg PO DAILY valacyclovir [Valtrex] 1 gram tablet 1,000 mg PO TID Qty: 21 2RF Centrum Adult 50 Plus 80 mcg tablet,chewable 2 tab PO DAILY@1200 venlafaxine 75 mg tablet 75 mg PO Q12H melatonin 3 mg tablet 5 mg PO HS omeprazole 40 mg capsule,delayed release(DR/EC) 40 mg PO DAILY fluticasone propionate 50 mcg/actuation spray,suspension 2 spray INTRANASAL DAILY PRN diclofenac sodium 1 % gel 4 g topical QID PRN (Reason: pain) meclizine 12.5 mg tablet 12.5 mg PO TID PRNQty: 20 0RF hydroxyzine HCl 25 mg tablet 25 mg PO Q6H PRN levothyroxine 175 mcg tablet 175 mcg PO DAILY losartan 100 mg tablet 100 mg PO HS pregabalin 75 mg capsule 150 mg PO BID docusate sodium 100 mg capsule 100 mg PO DAILY oxybutynin chloride 5 mg tablet extended release 24hr 5 mg PO DAILY bupropion HCl 100 mg tablet 100 mg PO TID nystatin 100,000 unit/gram powder 1 applic topical TID PRN Rx Instructions: apply to groin folds three times daily as needed. Follow Up/Referrals: Prabha Nice PA-C [Primary Care Provider, Family Practice] Stand Alone Forms: [facility] Info Instructions
[2024-11-14 14:22] LABS: Troponin, Point-of-Care* 0.00 ng/ml (0.01-0.04)
[2024-11-14 14:23] LABS: Creatinine, Point-of-Care* 0.9 mg/dl (0.6-1.3)
[2024-11-14 14:31] LABS: PCR FLU A Negative PCR FLU A (Negative); PCR FLU B Negative PCR FLU B (Negative); PCR RSV Negative PCR RSV (Negative); SARS PCR* Negative SARS-CoV-2 (Negative)
[2024-11-14 15:07] LABS: D Dimer Quantitative* 0.45 ug/ml (0.00-0.50)
[2024-11-14 15:25] LABS: Potassium* 5.3 mmol/L (3.6-5.1); Sodium* 131 mmol/L (135-149)
[2024-11-14 15:26] LABS: Anion Gap 4 mEq/L (7-15); Blood Urea Nitrogen* 23 mg/dL (7-30); Calcium* 9.4 mg/dL (8.4-10.6); Carbon Dioxide* 27 mmol/L (20-32); Chloride* 100 mmol/L (96-114); Creatinine* 0.8 mg/dL (0.5-1.5); Est. Creatinine Clearance* 38.35; Estimated Glomerular Filt Rate 75 ml/min; Glucose* 92 mg/dL (60-115); NT Pro B Type NatriureticPept* 1310 pg/mL (See Note)
== END 2024-11-14 15:51 | disposition home or self-care (01) ==
PROVIDERS: Emergency Provider Student in an Organized Health Care Education/Training Program; PCP Physician Assistant
DX: R06.02 Shortness of breath (principal)
CPT/HCPCS: 36415; 71046; 80048; 82565; 83735; 83880; 84484; 85025; 85379; 87637; 99284

== ENCOUNTER 2024-12-14 00:59 | Outpatient (CLI) | payer MEDICARE, OTHER, SELFPAY | END 2024-12-14 01:00 | disposition home or self-care (01) | LOC: AMB 12-16 12:43 | PROVIDERS: PCP Physician Assistant; Visit Provider Internal Medicine | DX: S09.93XA Unspecified injury of face, initial encounter (principal); W01.0XXA Fall on same level from slipping, tripping and stumbling without subsequent striking against object, initial encounter; Y92.008 Other place in unspecified non-institutional (private) residence as the place of occurrence of the external cause | CPT/HCPCS: A0425; A0427 ==

== ENCOUNTER 2024-12-22 07:53 | Outpatient (CLI) | payer MEDICARE, OTHER, SELFPAY | END 2024-12-22 07:54 | disposition home or self-care (01) | PROVIDERS: PCP Physician Assistant; Visit Provider Family Medicine | DX: S09.93XA Unspecified injury of face, initial encounter (principal); W18.30XA Fall on same level, unspecified, initial encounter; Y92.129 Unspecified place in nursing home as the place of occurrence of the external cause | CPT/HCPCS: A0425; A0428; A0429 ==

== ENCOUNTER 2024-12-22 08:33 | Emergency (ER) | payer MEDICARE, OTHER, SELFPAY ==
--- OUTSIDE RECORDS SUMMARY | 2002-02-11 19:00 | XMS_ITS | Continuity of Care Document ---
Author Organization MALKA Mirza Address [address] [place] [address] Phone Care Team Providers Care Phosphoric Acid Supervisor Name Role Phone Jani EASLEY MD, Augustine Unavailable Unavailable Advance Directives Directive Yes / No Effective Date File Name No Information Encounters Encounter Description Practice Location Reason(s) For Visit Diagnoses Date Provider Providers Copied on Encounter [facility]za, [address], [place], [place], [id number], [place] tel:[phone] No Information 200 2 Jani EASLEY Augustine. [address], [facility], [place], [address], [place]. tel:[phone] Referring Provider: Fransisco Cortes MD, [address] [place] [address] [facility] [place], [address]. tel:[phone] Family History Family Member Type Diagnosis Age At Onset No Information Payers Payer name Insurance type Covered constitution party ID Authordemetriaa eusebia(s) [facility] [id number] Social History Type Description Quantity Date Captured Comments Sex Female Smoking Status No Information Chief Complaint And Reason For Visit No Information Reason For Referral Reason For Referral No Information History Of Present Illness Encounter Date Complaint History Of Prese nt Illness No Information Functional Status Date Functional Assessmen t No Information Instructions Date Instruction Additional Infor mation No Information Assessments Type Assessment Date No Information Patient Care Teams Name Effective Dates (start - stop) Status Members No Information
--- OUTSIDE RECORDS SUMMARY | 2002-02-11 19:00 | XMS_ITS | Continuity of Care Document ---
Author Organization MALKA Mirza Address [address] [place] [address] Phone Care Team Providers Care Installment Account Checker Name Role Phone Jani EASLEY MD, Augustine Unavailable Unavailable Advance Directives Directive Yes / No Effective Date File Name No Information Encounters Encounter Description Practice Location Reason(s) For Visit Diagnoses Date Provider Providers Copied on Encounter MALKA Mirza, [address], [place], [place], [id number], [place] tel:[phone] No Information 200 2 Jani EASLEY Augustine. [address], [facility], [place], [address], [place]. tel:[phone] Referring Provider: Fransisco Cortes MD, [address] [place] [address] [place], [address]. tel:[phone] Family History Family Member Type Diagnosis Age At Onset No Information Payers Payer name Insurance type Covered democrat ID Authordemetriaa eusebia(s) [facility] [id number] Social History Type Description Quantity Date Captured [...]
--- OUTSIDE RECORDS SUMMARY | 2024-12-14 01:56 | XMS_ITS | Encounter Summary ---
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 Role Phone Prabha Nice PA-C Primary Care Provider [phone] Prabha Nice PA-C Unavailable [phone] Reason for Visit * Reason Comments Fall Laceration Encounter Details Date Type Department Care Team ([facility] st Contact Info) Description 12/14/2024 1:56 AM CDT - 12/14/2024 8:03 AM CDT Emergency [facility] Emergency Dept [address] [place] [address] Kirby Bush MD [facility] [address] [place], [place] [id number] Fransisco Fairbanks DO [facility] [address] [facility] [place] [address] Fall, initial encounter (Primary Dx); Complex lacerations of face, initial encounter Discharge Disposition: Home or Self Care Social History Tobacco Use Types Packs/Day Years Used Date Smoking Tobacco: Never Assessed Adolescent Education Answer Date Record ed Getting [...] Date Recorded Do you have housing? 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 Gender Identity Not on file Sexual Orientation Not on file documented as of this encounter Last Filed Vital Signs Vital Sign Reading Time Taken Comments Blood Pressure 153/79 12/14/2024 7:55 AM CDT Pulse 77 12/14/2024 7:55 AM CDT Temperature 36.4 C (97.5 F) 12/14/2024 4:05 AM CDT Respiratory Rate 18 12/14/2024 7:55 AM CDT Oxygen Saturation 94% 12/14/2024 7:55 AM CDT Inhaled Oxygen Concentration - - Weight 93 kg (205 lb) 12/14/2024 4:02 AM CDT Height - - Body Mass Index 36.31 05/26/2024 8:42 AM 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 Your provider examined your laceration for any problemssuch a buried foreign body (like glass, a splinter, or gravel), or injury to blood vessels, tendons, and nerves. Your provider may have also rinsed and/or scrubbed your laceration to help prevent an infection. It may not be possible to find all problems with your laceration on the first visit; occasionally foreign bodies or a tendon injury can go undetected. Your laceration may have been closed in one of several ways: No closure: many wounds will heal just fine without closure. Stitches: regular stitches that require removal. Tish: skin tish are often used in the scalp/head. Wound adhesive (glue): skin glue can be used for certain lacerations and doesn???t require removal. Wound strips (aka Butterfly bandages or steri-strips): these are bandages that help to close a wound. Absorbable stitches: ???dissolving?? stitches that go away on their own and usually don???t require removal. A small percentage of wounds will develop an infection regardless of how well the wound is cared for. Antibiotics are generally not indicated to prevent an infection so are only given for a small number of high-risk wounds. Some lacerations are too high risk to close, and are left open to heal because closure can increase the likelihood that an infection will develop. Remember that all lacerations, no matter how expertly repaired, will cause scarring. We consider many factors, techniques, and materials, in our efforts to provide the best possible cosmetic outcome. Generally, every Emergency Department visit should have a follow-up clinic visit with either a primary or a specialty clinic/provider. Please follow-up as instructed by your emergency provider today. Return to the Emergency Department right away if: You have more redness, swelling, pain, drainage (pus), a bad smell, or red streaking from your laceration as these symptoms could indicate an infection. You have a fever of 100.4??F or more. You have bleeding that you cannot stop at home. If your cut starts to bleed, hold pressure on the bleeding area with a clean cloth or put pressure over the bandage. If the bleeding does not stop after using constant pressure for 30 minutes, you should return to the Emergency Department for further treatment. An area past the laceration is cool, pale, or blue compared with the other side, or has a slower return of color when squeezed. Your dressing seems too tight or starts to get uncomfortable or painful. For children, signs of a problem might be irritability or restlessness. You have loss of normal function or use of an area, such as being unable to straighten or bend a finger normally. You have a numb area past the laceration. Return to the Emergency Department or see your regular provider if: The laceration starts to come open. You have something coming out of the cut or a feeling that there is something in the laceration. Your wound will not heal, or keeps breaking open. There can always be glass, wood, dirt or other things in any wound. They will not always show up, even on x-rays. If a wound does not heal, this may be why, and it is important to follow-up with your regular provider. Home Care: Take your dressing off in 12-24 hours, or as instructed by your provider, to check your laceration.Remove the dressing sooner if it seems too tight or painful, or if it is getting numb, tingly, or pale past the dressing. Gently wash your laceration 1-2 times daily with clean water and mild soap. It is okay to shower orrun clean water over the laceration, but do not let the laceration soak in water (no swimming). If your laceration was closed with wound adhesive or strips: pat it dry and leave it open to the air. For all other repairs: after you wash your laceration, or at least 2 times a day, apply antibiotic ointment (such as Neosporin?? or Bacitracin??) to the laceration, then cover it with a Band-Aid?? or gauze. Keep the laceration clean. Wear gloves or other protective clothing if you are around dirt. Follow-up for removal: If your wound was closed with tish or regular stitches, they need to be removed according to theinstructions and timeline specified by your provider today. If your wound was closed with absorbable (???dissolving?? ) sutures, they should fall out, dissolve, or not be visible in about one week. If they are still visible, then they should be removed according to the instructions and timeline specified by your provider today. Scars: To help minimize scarring: Wear sunscreen over the healed laceration when out in the sun. Massage the area regularly once healed. You may apply Vitamin E to the healed wound. Wait. Scars improve in appearance over months and years. If you were given a prescription for medicine here today, be sure to read all of the information (including the package insert) that comes with your prescription. This will include important information about the medicine, its side effects, and any warnings that you need to know about. The pharmacist who fills the prescription can provide more information and answer questions you may have about the medicine. If you have questions or concerns that the pharmacist cannot address, please call or return to the Emergency Department. Remember that you can always come back to the Emergency Department if you are not able to see your regular provider in the amount of time listed above, if you get any new symptoms, or if there is anything that worries you. documented in this encounter Medications at Time of Discharge acetaminophen (TYLENOL) 500 MG tablet Take 500 mg by mouth every 8 hours as needed for mild pain atorvastatin (LIPITOR) 20 MG tablet Take 20 mg by mouth daily buPROPion (WELLBUTRIN) 100 MG tablet Take 100 mg by mouth 2 times daily BUPROPION HCL PO Take by mouth. cetirizine (ZYRTEC) 10 MG tablet Take 10 mg by mouth daily. cetirizine (ZYRTEC) 10 MG tablet Take 10 mg by mouth daily cyanocobalamin (VITAMIN B-12) 1000 MCG tablet Take 2,000 mcg by mouth daily furosemide (LASIX) 20 MG tablet Take 20 mg by mouth 2 times daily. FUROSEMIDE PO Take by mouth. GABAPENTIN PO Take by mouth. hydrochlorothiazi de (HYDRODIURIL) 12.5 MG tablet Take 12.5 mg by mouth daily HYDROCHLOROTHIAZI DE PO Take by mouth. hydrOXYzine HCl (ATARAX) 25 MG tablet Take 25 mg by mouth 2 times daily. HYDROXYZINE HCL PO Take by mouth. levothyroxine (SYNTHROID/LEVOTH ROID) 175 MCG tablet Take 175 mcg by mouth daily. Levothyroxine Sodium (SYNTHROID PO) Take by mouth. losartan (COZAAR) 100 MG tablet Take 100 mg by mouth daily. LOSARTAN POTASSIUM PO Take by mouth. metoprolol succinate ER (TOPROL XL) 50 MG 24 hr tablet Take 50 mg by mouth daily. METOPROLOL SUCCINATE PO Take by mouth. multivitamin (CENTRUM SILVER) tablet Take 2 tablets by mouth daily omeprazole (PRILOSEC) [address] capsule Take 40 mg by mouth daily OMEPRAZOLE PO Take by mouth. oxyBUTYnin ER (DITROPAN XL) 5 MG 24 hr tablet Take 5 mg by mouth daily. oxyCODONE (ROXICODONE) 5 MG tabletIndications :SBO (small bowel obstruction) (H) Take 0.5-1 tablets (2.5-5 mg) by mouth every 4 hours as needed for severe pain 10 tablet 03/27/2023 pregabalin (LYRICA) 75 MG capsule Take 75 mg by mouth 2 times daily. venlafaxine (EFFEXOR) 75 MG tablet Take 75 mg by mouth 3 times daily VENLAFAXINE HCL PO Take by mouth. vitamin D3 (CHOLECALCIFEROL) 50 mcg (2000 units) tablet Take 1 tablet by mouth daily cephALEXin (KEFLEX) 500 MG capsule Take 1 capsule (500 mg) by mouth 3 times daily for 7 days. 21 capsule 12/14/2024 12/21/2024 documented as of this encounter ED Notes * Kirby Bush MD - 12/14/2024 2:00 AM CDT Images from the original note were not included. Emergency Department Note History of Present Illness Chief Complaint Fall and Laceration HPI Sharmila Huynh is a 79 year old female with history of hypertension who presents to the ED with a fall and laceration. Patient reports she was getting ready for bed tonight when she slipped out of her chair and hit her forehead. There is a large laceration to her forehead. She denies pain or loss of consciousness. Independent Historian None Review of External Notes I reviewed Care Everywhere and updated Epic Past Medical History Medical History and Problem List Past Medical History: Diagnosis Date Depressive disorder Gastroesophageal reflux disease Hypertension Hypothyroidism Medications BUPROPION HCL PO cetirizine (ZYRTEC) 10 MG tablet FUROSEMIDE PO GABAPENTIN PO HYDROCHLOROTHIAZIDE PO HYDROXYZINE HCL PO Levothyroxine Sodium (SYNTHROID PO) LOSARTAN POTASSIUM PO METOPROLOL SUCCINATE PO OMEPRAZOLE PO VENLAFAXINE HCL PO [place] Surgical History No past surgical history on file. Physical Exam Patient Vitals for the past 24 hrs: BP Temp Temp src Pulse Resp SpO2 Weight 12/14/245 -- 97.5 ??F (36.4 ??C) Temporal -- -- -- -- 12/14/24401 -- -- -- -- -- -- 93 kg (205 lb) 12/14/24 0202 169/95 -- -- 70 16 96 % -- Physical Exam Nursing note and vitals reviewed. Constitutional: Cooperative. HENT: Mouth/Throat: Mucous membranes are normal. Freely moving neck. No cervical spinous tenderness Eyes: Pupils are equal, round, and reactive to light. Extraocular movements intact Cardiovascular: Normal rate, regular rhythm and normal heart sounds. No murmur. Pulmonary/Chest: Effort normal and breath sounds normal. No respiratory distress. No wheezes. No rales. Abdominal: Soft. Appearance. Nontender Musculoskeletal: Normal range of motion of extremities. Neurological: Alert. GCS 15. Oriented x 3 Skin: Skin is warm and dry. No rash noted. Large complex forehead laceration extending to the bridge of the nose. See photograph below Psychiatric: Normal mood and affect. Diagnostics Lab Results Labs Ordered and Resulted from Time of ED Arrival to Time of ED Departure BASIC METABOLIC PANEL (LIMITED OCCURRENCES) - Abnormal Result Value Sodium 131 (*) Potassium 4.3 Chloride 95 (*) Carbon Dioxide (CO2) 26 Anion Gap 10 Urea Nitrogen 17.7 Creatinine 0.86 GFR Estimate 69 Calcium 9.1 Glucose 103 (*) CBC WITH PLATELETS (LIMITED OCCURRENCES) - Abnormal WBC Count 5.68 RBC Count 3.90 Hemoglobin 11.5 (*) Hematocrit 33.7 (*) MCV 86.4 MCH 29.5 MCHC 34.1 RDW 14.0 Platelet Count [address] Cervical Spine w/o Contrast Final Result IMPRESSION: CERVICAL SPINE CT: 1. No fracture or posttraumatic subluxation. 2. No high-grade spinal canal or neural foraminal stenosis. CT Facial Bones without Contrast Final Result IMPRESSION: FACIAL BONE CT: 1. No facial bone or mandibular fracture. 2. Scalp laceration anterior frontal region extending to nasal bridge. Head CT w/o contrast Final Result IMPRESSION: HEAD CT: 1. No CT finding of a mass, hemorrhage or focal area suggestive of acute infarct. 2. Minimal age related changes. There EKG ECG taken at 0156, ECG read at 0156 Sinus rhythm with 1st degree AV block Possible left atrial enlargement Anterior infarct, age undetermined Rate 67 bpm. OR interval 214 ms. QRS duration 84 ms. QT/QTc 400/422 ms. P-R-T axes 36 0 48. Independent Interpretation None ED Course Medications Administered Medications Tdap (yvzafxs-wmihqudenv-agndy pertussis) (ADACEL) injection 0.5 mL (has no administration in time range) lidocaine 1% with EPINEPHrine 1:100,000 1 %-1:040004 injection (has no administration in time range) Procedures Laceration Repair #1 Procedure: Laceration Repair Indication: Laceration Consent: Verbal Tetanus status reviewed Location: Left forehead Length: 8.5 cm Preparation: Irrigation with Sterile Saline. Anesthesia/Sedation: 13cc of Lidocaine with Epinephrine - 1% Treatment/Exploration: Wound explored, no foreign bodies found Closure: The wound was closed with two layers. Skin/superficial layer was closed with 19 x 5-0 Fastgut absorbable using Running sutures. Subcutaneous layer was closed with 9 x 5-0 Vicryl using Interrupted sutures. Patient Status: The patient tolerated the procedure well: Yes. There were no complications. Laceration Repair #2 Procedure: Laceration Repair Indication: Laceration Consent: Verbal Tetanus status reviewed Location: Left nose Length: 5 cm Preparation: Irrigation with Sterile Saline. Anesthesia/Sedation: 13cc of Lidocaine with Epinephrine - 1% Treatment/Exploration: Wound explored, no foreign bodies found Closure: The wound was closed with two layers. Skin/superficial layer was closed with 11 x 5-0 Fastgut absorbable using Running sutures. Subcutaneous layer was closed with 6 x 5-0 Vicryl using Interrupted sutures. Patient Status: The patient tolerated the procedure well: Yes. There were no complications. Discussion of Management None ED Course ED Course as of 12/14/24 0423 Sat Dec 14, 2024 0157 I obtained history and examined the patient as noted above. Additional Documentation None Medical Decision Making / Diagnosis JUDD Huynh is a 79 year old female who presents with a mechanical fall. I do not have concern cee acute cardiogenic or neurologic cause that she simply lost her balance. She sustained significant lacerations to the bridge of her nose and forehead as described in the physical exam along with medical photography. These were repaired as per the procedure notes with good cosmetic outcome and no loss of soft tissue. Given the extent of the wounds, would err on the side of treatment with antibiotics. Tetanus status updated. Imaging negative for traumatic fracture or hemorrhage to the cervical spine face and head. Plan for discharge home with close primary care wound care follow-up Disposition The patient was discharged. Diagnosis ICD-10-CM 1. Fall, initial encounter W19.XXXA 2. Complex laceration of face, initial encounter S01.91XA Discharge Medications New Prescriptions CEPHALEXIN (KEFLEX) 500 MG CAPSULE Take 1 capsule (500 mg) by mouth 3 times daily for 7 days. Scribe Disclosure: Jonny Escalona, am serving as a scribe at 2:44 AM on 12/14/2024 to document services personally performed by Kirby Bush MD based on my observations and the provider's statements to me. Kirby Bush MD 12/14/24 0424 * Ginny Tilley RN - 12/14/2024 1:58 AM CDT [facility] while getting to bed. left frontal scalp avulsion.bleeding controlled no LOC no thinners. AO VSS BG 168. * Jaci Gardiner RN - 12/14/2024 1:56 AM CDT Bed: ED02 Expected date: 12/14/24 Expected time: 1:52 AM Means of arrival: Comments: NF documented in this encounter Plan of Treatment Not on file documented as of this encounter Procedures Procedure Name Priority Date/Time Associated Diagnosis Comments EXTRA TUBE STAT 12/14/2024 2:43 AM CDT EXTRA RED TOP TUBE STAT 12/14/2024 2: 43 AM CDT EXTRA BLUE TOP TUBE STAT 12/14/2024 2 :43 AM CDT CBC WITH PLATELETS (LIMITED OCCURRENCES) STAT 12/14/2024 2:43 AM CDT BASIC METABOLIC PANEL (LIMITED OCCURRENCES) STAT 12/14/2024 2:[address] CERVICAL SPINE W/O CONTRAST STAT 12/14/2024 2:[address] FACIAL BONES WITHOUT CONTRAST STAT 12/14/2024 2:[address] HEAD W/O CONTRAST STAT 12/14/2024 2:31 AM CDT EKG 12-LEAD, TRACING ONLY STAT 12/14/2024 1:56 AM CDT documented in this encounter Results * Extra Red Top Tube (12/14/2024 2:43 AM CDT) Hold Specimen [facility] 12/14/2024 3:46 AM CDT [facility] Blood BLOOD SPECIMEN / Unknown Venipuncture / Unknown 12/14/2024 2:43 AM CDT 12/14/2024 2:45 AM CDT Kirby Bush MD LAB - BLOOD ORDERABLES Final Res ult LABORATORY [facility] [address] Lab (1st floor, no room number) [place] [address], [facility] * Extra Blue Top Tube (12/14/2024 2:43 AM CDT) Hold Specimen [facility] 12/14/2024 3:46 AM CDT LABORATORY Blood BLOOD SPECIMEN / Unknown Venipuncture / Unknown 12/14/2024 2:43 AM CDT 12/14/2024 2:45 AM CDT us Kirby Bush MD LAB - BLOOD ORDERABLES Final Res ult LABORATORY [facility] [address] Lab (1st floor, no room number) [place] [address], [facility] * (ABNORMAL) CBC with Platelets (Limited Occurrences) (12/14/2024 2:43 AM CDT) [facility] WBC Count 5.68 4.00 - 11.00 10e3/uL 12/14/2024 3:03 AM CDT [facility] RBC Count 3.90 3.80 - 5.20 10e6/uL 12/14/2024 3:03 AM CDT [facility] Hemoglobin 11.5(L) 11.7 - 15.7 g/dL 12/14/2024 3:03 AM CDT [facility] Hematocrit 33.7(L) 35.0 - 47.0 % 12/14/2024 3:03 AM CDT [facility] MCV 86.4 78.0 - 100.0 fL 12/14/2024 3:03 AM CDT [facility] MCH 29.5 26.5 - 33.0 pg 12/14/2024 3:03 AM CDT [facility] MCHC 34.1 31.5 - 36.5 g/dL 12/14/2024 3:03 AM CDT [facility] RDW 14.0 10.0 - 15.0 % 12/14/2024 3:03 AM CDT [facility] Platelet Count 253 150 - 450 10e3/uL 12/14/2024 3:03 AM CDT [facility] Blood BLOOD SPECIMEN / Unknown Venipuncture / Unknown 12/14/2024 2:43 AM CDT 12/14/2024 2:45 AM CDT us Kirby Bush MD LAB - BLOOD ORDERABLES Final Res ult LABORATORY [facility] [address] Lab (1st floor, no room number) [place] [address], [facility] * (ABNORMAL) Basic Metabolic Panel (Limited Occurrences) (12/14/2024 2:43 AM CDT) Sodium 131(L) 135 - 145 mmol/L 12/14/2024 3:05 AM CDT LABORATORY Potassium 4.3 3.4 - 5.3 mmol/L 12/14/2024 3:05 AM CDT LABORATORY Chloride 95(L) 98 - 107 mmol/L 12/14/2024 3:05 AM CDT LABORATORY Carbon Dioxide (CO2) 26 22 - 29 mmol/L 12/14/2024 3:05 AM CDT LABORATORY Anion Gap 10 7 - 15 mmol/L 12/14/2024 3:05 AM CDT LABORATORY Urea Nitrogen 17.7 8.0 - 23.0 mg/dL 12/14/2024 3:05 AM CDT LABORATORY Creatinine 0.86 0.51 - 0.95 mg/dL 12/14/2024 3:05 AM CDT LABORATORY GFR Estimate 69 >60 mL/min/1.7 3m2 12/14/2024 3:05 AM CDT LABORATORY Comment:eGFR calculated us2020 CKD-EPI equation. Calcium 9.1 8.8 - 10.4 mg/dL 12/14/2024 3:05 AM CDT LABORATORY Glucose 103(H) 70 - 99 mg/dL 12/14/2024 3:05 AM CDT LABORATORY Blood BLOOD SPECIMEN / Unknown Venipuncture / Unknown 12/14/2024 2:43 AM CDT 12/14/2024 2:45 AM CDT us Kirby Bush MD LAB - BLOOD ORDERABLES Final Res ult LABORATORY [facility] [address] Lab (1st floor, no room number) [place] [address], [facility] * CT Cervical Spine w/o Contrast (12/14/2024 2:32 AM CDT) Anatomical Region Laterality Modality Spine, SUBRAD CT NEURO, SUBR AD CT NEURO, UMP CT SPINE, RAD CT Computed Tomography 12/14/2024 2:32 AM CDT Impressions 12/14/2024 3:20 AM CDT IMPRESSION: HEAD CT: 1. No CT finding of a mass, hemorrhage or focal area suggestive of acute infarct. 2. Minimal age related changes. FACIAL BONE CT: 1. No facial bone or mandibular fracture. 2. Scalp laceration anterior frontal region extending to nasal bridge. CERVICAL SPINE CT: 1. No fracture or posttraumatic subluxation. 2. No high-grade spinal canal or neural foraminal stenosis. Narrative 12/14/2024 3:20 AM CDT EXAM: CT HEAD W/O CONTRAST, CT CERVICAL SPINE W/O CONTRAST, CT FACIAL BONES WITHOUT CONTRAST LOCATION: [facility] DATE: 12/14/2024 INDICATION: Fall, facial trauma COMPARISON: None. TECHNIQUE: 1) Routine CT Head without IV contrast. Multiplanar reformats. Dose reduction techniques were used. 2) Routine CT Facial Bones without IV contrast. Multiplanar reformats. Dose reduction techniques were used. 3) Routine CT Cervical Spine without IV contrast. Multiplanar reformats. Dose reduction techniques were used. FINDINGS: HEAD CT: INTRACRANIAL CONTENTS: No intracranial hemorrhage, extraaxial collection, or mass effect. No CT evidence of acute infarct. Mild diffuse small vessel ischemic disease. Minimal volume loss for age. OSSEOUS STRUCTURES/SOFT TISSUES: The calvarium is intact. There is a scalp laceration in the anterior frontal regions. FACIAL BONE CT: OSSEOUS STRUCTURES/SOFT TISSUES: Again visualized is the scalp laceration involving the anterior frontal regions extending down to the nasal bridge. No facial bone fracture or malalignment. No evidence for dental trauma or periapical abscess. ORBITAL CONTENTS: No acute abnormality. SINUSES: No paranasal sinus mucosal disease. CERVICAL SPINE CT: VERTEBRA: There is a slight anterior listhesis of C7 in relation to T1. The vertebral body heights are well-maintained throughout. No fracture or posttraumatic subluxation. CANAL/FORAMINA: There is prominent degenerative disc disease from the C3-4 to the C7-T1 disc space levels. These levels have a significant loss of disc space height, endplate changes and tiny anterior osteophyte formations. There is mild diffuse facet arthropathy visualized. At the C3-4 disc space level there is moderate right neural foraminal narrowing. At the C5-6 and the C6-7 disc space levels there is mild left neural foraminal narrowing. There is no significant canal compromise throughout the cervical spine. PARASPINAL: No extraspinal abnormality. Visualized lung herrera are clear. Procedure Note Renee Cartagena MD - 12/14/2024 EXAM: CT HEAD W/O CONTRAST, CT CERVICAL SPINE W/O CONTRAST, CT FACIALBONES WITHOUT CONTRAST LOCATION: [facility] DATE: 12/14/2024 INDICATION: Fall, facial trauma COMPARISON: None. TECHNIQUE: 1) Routine CT Head without IV contrast. Multiplanar reformats. Dosereduction techniques were used. 2) Routine CT Facial Bones without IV contrast. Multiplanar reformats.Dose reduction techniques were used. 3) Routine CT Cervical Spine without IV contrast. Multiplanar reformats.Dose reduction techniques were used. FINDINGS: HEAD CT: INTRACRANIAL CONTENTS: No intracranial hemorrhage, extraaxial collection,or mass effect. No CT evidence of acute infarct. Mild diffuse smallvessel ischemic disease. Minimal volume loss for age. OSSEOUS STRUCTURES/SOFT TISSUES: The calvarium is intact. There is a scalplaceration in the anterior frontal regions. FACIAL BONE CT: OSSEOUS STRUCTURES/SOFT TISSUES: Again visualized is the scalp lacerationinvolving the anterior frontal regions extending down to the nasal bridge.No facial bone fracture or malalignment. No evidence for dental trauma orperiapical abscess. ORBITAL CONTENTS: No acute abnormality. SINUSES: No paranasal sinus mucosal disease. CERVICAL SPINE CT: VERTEBRA: There is a slight anterior listhesis of C7 in relation to T1.The vertebral body heights are well-maintained throughout. No fracture orposttraumatic subluxation. CANAL/FORAMINA: There is prominent degenerative disc disease from the C3-4to the C7-T1 disc space levels. These levels have a significant loss ofdisc space height, endplate changes and tiny anterior osteophyteformations. There is mild diffuse facet arthropathy visualized. At the C3-4 disc space level there is moderate right neural foraminalnarrowing. At the C5-6 and the C6-7 disc space levels there is mild left neuralforaminal narrowing. There is no significant canal compromise throughout the cervical spine. PARASPINAL: No extraspinal abnormality. Visualized lung herrera areclear. IMPRESSION: HEAD CT: 1. No CT finding of a mass, hemorrhage or focal area suggestive of acuteinfarct. 2. Minimal age related changes. FACIAL BONE CT: 1. No facial bone or mandibular fracture. 2. Scalp laceration anterior frontal region extending to nasal bridge. CERVICAL SPINE CT: 1. No fracture or posttraumatic subluxation. 2. No high-grade spinal canal or neural foraminal stenosis. Kirby Bush MD IM CT ORDERABLES Final Result * CT Facial Bones without Contrast (12/14/2024 2:31 AM CDT) Anatomical Region Laterality Modality Head, SUBRAD CT NEURO, UMP CT NEURO, RAD CT Computed Tomography 12/14/2024 2:31 AM CDT Impressions 12/14/2024 3:20 AM CDT IMPRESSION: HEAD CT: 1. No CT finding of a mass, hemorrhage or focal area suggestive of acute infarct. 2. Minimal age related changes. FACIAL BONE CT: 1. No facial bone or mandibular fracture. 2. Scalp laceration anterior frontal region extending to nasal bridge. CERVICAL SPINE CT: 1. No fracture or posttraumatic subluxation. 2. No high-grade spinal canal or neural foraminal stenosis. Narrative 12/14/2024 3:20 AM CDT EXAM: CT HEAD W/O CONTRAST, CT CERVICAL SPINE W/O CONTRAST, CT FACIAL BONES WITHOUT CONTRAST LOCATION: [facility] DATE: 12/14/2024 INDICATION: Fall, facial trauma COMPARISON: None. TECHNIQUE: 1) Routine CT Head without IV contrast. Multiplanar reformats. Dose reduction techniques were used. 2) Routine CT Facial Bones without IV contrast. Multiplanar reformats. Dose reduction techniques were used. 3) Routine CT Cervical Spine without IV contrast. Multiplanar reformats. Dose reduction techniques were used. FINDINGS: HEAD CT: INTRACRANIAL CONTENTS: No intracranial hemorrhage, extraaxial collection, or mass effect. No CT evidence of acute infarct. Mild diffuse small vessel ischemic disease. Minimal volume loss for age. OSSEOUS STRUCTURES/SOFT TISSUES: The calvarium is intact. There is a scalp laceration in the anterior frontal regions. FACIAL BONE CT: OSSEOUS STRUCTURES/SOFT TISSUES: Again visualized is the scalp laceration involving the anterior frontal regions extending down to the nasal bridge. No facial bone fracture or malalignment. No evidence for dental trauma or periapical abscess. ORBITAL CONTENTS: No acute abnormality. SINUSES: No paranasal sinus mucosal disease. CERVICAL SPINE CT: VERTEBRA: There is a slight anterior listhesis of C7 in relation to T1. The vertebral body heights are well-maintained throughout. No fracture or posttraumatic subluxation. CANAL/FORAMINA: There is prominent degenerative disc disease from the C3-4 to the C7-T1 disc space levels. These levels have a significant loss of disc space height, endplate changes and tiny anterior osteophyte formations. There is mild diffuse facet arthropathy visualized. At the C3-4 disc space level there is moderate right neural foraminal narrowing. At the C5-6 and the C6-7 disc space levels there is mild left neural foraminal narrowing. There is no significant canal compromise throughout the cervical spine. PARASPINAL: No extraspinal abnormality. Visualized lung herrera are clear. Procedure Note Renee Cartagena MD - 12/14/2024 EXAM: CT HEAD W/O CONTRAST, CT CERVICAL SPINE W/O CONTRAST, CT FACIALBONES WITHOUT CONTRAST LOCATION: [facility] DATE: 12/14/2024 INDICATION: Fall, facial trauma COMPARISON: None. TECHNIQUE: 1) Routine CT Head without IV contrast. Multiplanar reformats. Dosereduction techniques were used. 2) Routine CT Facial Bones without IV contrast. Multiplanar reformats.Dose reduction techniques were used. 3) Routine CT Cervical Spine without IV contrast. Multiplanar reformats.Dose reduction techniques were used. FINDINGS: HEAD CT: INTRACRANIAL CONTENTS: No intracranial hemorrhage, extraaxial collection,or mass effect. No CT evidence of acute infarct. Mild diffuse smallvessel ischemic disease. Minimal volume loss for age. OSSEOUS STRUCTURES/SOFT TISSUES: The calvarium is intact. There is a scalplaceration in the anterior frontal regions. FACIAL BONE CT: OSSEOUS STRUCTURES/SOFT TISSUES: Again visualized is the scalp lacerationinvolving the anterior frontal regions extending down to the nasal bridge.No facial bone fracture or malalignment. No evidence for dental trauma orperiapical abscess. ORBITAL CONTENTS: No acute abnormality. SINUSES: No paranasal sinus mucosal disease. CERVICAL SPINE CT: VERTEBRA: There is a slight anterior listhesis of C7 in relation to T1.The vertebral body heights are well-maintained throughout. No fracture orposttraumatic subluxation. CANAL/FORAMINA: There is prominent degenerative disc disease from the C3-4to the C7-T1 disc space levels. These levels have a significant loss ofdisc space height, endplate changes and tiny anterior osteophyteformations. There is mild diffuse facet arthropathy visualized. At the C3-4 disc space level there is moderate right neural foraminalnarrowing. At the C5-6 and the C6-7 disc space levels there is mild left neuralforaminal narrowing. There is no significant canal compromise throughout the cervical spine. PARASPINAL: No extraspinal abnormality. Visualized lung herrera areclear. IMPRESSION: HEAD CT: 1. No CT finding of a mass, hemorrhage or focal area suggestive of acuteinfarct. 2. Minimal age related changes. FACIAL BONE CT: 1. No facial bone or mandibular fracture. 2. Scalp laceration anterior frontal region extending to nasal bridge. CERVICAL SPINE CT: 1. No fracture or posttraumatic subluxation. 2. No high-grade spinal canal or neural foraminal stenosis. Kirby Bush MD IMG CT ORDERABLES Final Result * Head CT w/o contrast (12/14/2024 2:31 AM CDT) Anatomical Region Laterality Modality Head, SUBRAD CT NEURO, SUBRA D CT NEURO, UMP CT NEURO, RAD CT Computed Tomography 12/14/2024 2:31 AM CDT Impressions 12/14/2024 3:20 AM CDT IMPRESSION: HEAD CT: 1. No CT finding of a mass, hemorrhage or focal area suggestive of acute infarct. 2. Minimal age related changes. FACIAL BONE CT: 1. No facial bone or mandibular fracture. 2. Scalp laceration anterior frontal region extending to nasal bridge. CERVICAL SPINE CT: 1. No fracture or posttraumatic subluxation. 2. No high-grade spinal canal or neural foraminal stenosis. Narrative 12/14/2024 3:20 AM CDT EXAM: CT HEAD W/O CONTRAST, CT CERVICAL SPINE W/O CONTRAST, CT FACIAL BONES WITHOUT CONTRAST LOCATION: [facility] DATE: 12/14/2024 INDICATION: Fall, facial trauma COMPARISON: None. TECHNIQUE: 1) Routine CT Head without IV contrast. Multiplanar reformats. Dose reduction techniques were used. 2) Routine CT Facial Bones without IV contrast. Multiplanar reformats. Dose reduction techniques were used. 3) Routine CT Cervical Spine without IV contrast. Multiplanar reformats. Dose reduction techniques were used. FINDINGS: HEAD CT: INTRACRANIAL CONTENTS: No intracranial hemorrhage, extraaxial collection, or mass effect. No CT evidence of acute infarct. Mild diffuse small vessel ischemic disease. Minimal volume loss for age. OSSEOUS STRUCTURES/SOFT TISSUES: The calvarium is intact. There is a scalp laceration in the anterior frontal regions. FACIAL BONE CT: OSSEOUS STRUCTURES/SOFT TISSUES: Again visualized is the scalp laceration involving the anterior frontal regions extending down to the nasal bridge. No facial bone fracture or malalignment. No evidence for dental trauma or periapical abscess. ORBITAL CONTENTS: No acute abnormality. SINUSES: No paranasal sinus mucosal disease. CERVICAL SPINE CT: VERTEBRA: There is a slight anterior listhesis of C7 in relation to T1. The vertebral body heights are well-maintained throughout. No fracture or posttraumatic subluxation. CANAL/FORAMINA: There is prominent degenerative disc disease from the C3-4 to the C7-T1 disc space levels. These levels have a significant loss of disc space height, endplate changes and tiny anterior osteophyte formations. There is mild diffuse facet arthropathy visualized. At the C3-4 disc space level there is moderate right neural foraminal narrowing. At the C5-6 and the C6-7 disc space levels there is mild left neural foraminal narrowing. There is no significant canal compromise throughout the cervical spine. PARASPINAL: No extraspinal abnormality. Visualized lung herrera are clear. Procedure Note Renee Cartagena MD - 12/14/2024 EXAM: CT HEAD W/O CONTRAST, CT CERVICAL SPINE W/O CONTRAST, CT FACIALBONES WITHOUT CONTRAST LOCATION: [facility] DATE: 12/14/2024 INDICATION: Fall, facial trauma COMPARISON: None. TECHNIQUE: 1) Routine CT Head without IV contrast. Multiplanar reformats. Dosereduction techniques were used. 2) Routine CT Facial Bones without IV contrast. Multiplanar reformats.Dose reduction techniques were used. 3) Routine CT Cervical Spine without IV contrast. Multiplanar reformats.Dose reduction techniques were used. FINDINGS: HEAD CT: INTRACRANIAL CONTENTS: No intracranial hemorrhage, extraaxial collection,or mass effect. No CT evidence of acute infarct. Mild diffuse smallvessel ischemic disease. Minimal volume loss for age. OSSEOUS STRUCTURES/SOFT TISSUES: The calvarium is intact. There is a scalplaceration in the anterior frontal regions. FACIAL BONE CT: OSSEOUS STRUCTURES/SOFT TISSUES: Again visualized is the scalp lacerationinvolving the anterior frontal regions extending down to the nasal bridge.No facial bone fracture or malalignment. No evidence for dental trauma orperiapical abscess. ORBITAL CONTENTS: No acute abnormality. SINUSES: No paranasal sinus mucosal disease. CERVICAL SPINE CT: VERTEBRA: There is a slight anterior listhesis of C7 in relation to T1.The vertebral body heights are well-maintained throughout. No fracture orposttraumatic subluxation. CANAL/FORAMINA: There is prominent degenerative disc disease from the C3-4to the C7-T1 disc space levels. These levels have a significant loss ofdisc space height, endplate changes and tiny anterior osteophyteformations. There is mild diffuse facet arthropathy visualized. At the C3-4 disc space level there is moderate right neural foraminalnarrowing. At the C5-6 and the C6-7 disc space levels there is mild left neuralforaminal narrowing. There is no significant canal compromise throughout the cervical spine. PARASPINAL: No extraspinal abnormality. Visualized lung herrera areclear. IMPRESSION: HEAD CT: 1. No CT finding of a mass, hemorrhage or focal area suggestive of acuteinfarct. 2. Minimal age related changes. FACIAL BONE CT: 1. No facial bone or mandibular fracture. 2. Scalp laceration anterior frontal region extending to nasal bridge. CERVICAL SPINE CT: 1. No fracture or posttraumatic subluxation. 2. No high-grade spinal canal or neural foraminal stenosis. Kirby Bush MD IMG CT ORDERABLES Final Result * EKG 12 lead (12/14/2024 1:56 AM CDT) Systolic Blood Pressure mmHg RADIOLOGY RESULTS Diastolic Blood Pressure mmHg RADIOLOGY RESULTS Ventricular Rate 67 BPM RAD IOLOGY RESULTS Atrial Rate 67 BPM RADIOLOG Y RESULTS OR Interval 214 ms RADIOLOG Y RESULTS QRS Duration 84 ms RADIOLO GY RESULTS QT 400 ms RADIOLOGY RESULTS QTc 422 ms RADIOLOGY RESULTS P [place] 36 degrees RADIOLOGY RESULTS R AXIS 0 degrees RADIOLOGY RESULTS T [place] 48 degrees RADIOLOGY RESULTS Interpretation ECG Unconfirmed report - interpretation of this ECG is computer generated - see medical record for final interpretation Sinus rhythm with 1st degree A-V block Possible Left atrial enlargement Anterior infarct , age undetermined Abnormal ECG No previous ECGs available Confirmed by - EMERGENCY ROOM, PHYSICIAN (Felipe), manager editorial ADRIANNA VANCE (Nav) on 12/16/2024 7:13:14 AM RADIOLOGY RESULTS 12/14/2024 1:56 AM CDT 12/16/2024 7:13 AM CDT Kirby Bush MD ECG ORDERABLES Edited Result - Final RADIOLOGY RESULTS documented in this encounter Visit Diagnoses Diagnosis Fall, initial encounter- Primary Complex lacerations of face, initial encounter documented in this encounter Administered Medications Inactive Administered Medications - up to 3 most recent administrations Medication Order MAR Action Action Date Dose Rate Site acetaminophen (TYLENOL) tablet 500 mg 500 mg, Oral, EVERY 4 HOURS PRN, fever, Starting on 12/14/24 at 0622, Maximum acetaminophen dose from all sources = 75 mg/kg/day not to exceed 4 gram $Given 12/14/2024 6:25 AM CDT 500 mg documented in this encounter Active and Recently Administered Medications Times are shown in CDT. 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
--- OUTSIDE RECORDS SUMMARY | 2024-12-22 08:35 | XMS_ITS | Encounter Summary ---
Author Organization [facility] Address [address] [facility] [place] [address] Care Team Providers Care Ultrasound Sonographer Name Role Phone Prabha Nice PA-C Primary Care Provider [phone] Prabha Nice PA-C Unavailable [phone] Encounter Details Date Type Department Care Team (Latest Contact Info) Description 12/14/2024 Travel Social History Tobacco Use Types Packs/Day Years [...] in an abandoned building, in an overnight [facility], or couch-surfing.) No 05/26/2024 Are you worried [...] on file Legal Sex Female 3:41 AM [employer] Gender Identity Not on file Sexual Orientation Not on file documented as of this encounter Plan of Treatment Not on file documented as of this encounter Visit Diagnoses Not on filedocumented in this encounter Care Teams Ultrasound Sonographer Relationship Specialty Start Date End Date Prabha Nice PA-C [address] [place] [address] PCP - General 12/14/24 Prabha Nice PA-C [address] [place] [address] 12/14/24 documented as of this encounter
--- OUTSIDE RECORDS SUMMARY | 2024-12-22 08:35 | XMS_ITS | Clinical Summary ---
Author Organization [facility] Address [address] [place] [address] Care Team Providers Care Outcomes Specialist Name Role Phone Prabha Nice Primary Care Provider [phone] Allergies Active Allergy Reactions Criticality Noted Date Comments Blood-Group Specific Substance Other - Describe In Comment Field 02/13/2024 Patient has an anti-Ashuelot antibody. Blood products may be delayed. Draw patient 24 hours prior to transfusion. For [facility] testing, draw one red top and two purple top tubes for all Type and Screen orders. Droperidol Rash 02/22/2021 Polyglactin *Unknown 03/04/2024 Polyglactin 370 Rash 04/29/2011 Vicryl sutures--rash, itching Metoclopramide Rash 02/22/2021 Sulfa (Sulfonamide Antibiotics) Rash 02/22/2021 Sulfamethoxazole-Trimetho prim Rash Medium 05/23/2011 Sutures Rash 04/29/2011 Vicryl sutures--rash, itching Medications acetaminophen 500 mg tabletIndications :Chronic low back pain, unspecified back pain laterality, unspecified whether sciatica present Take 2 Tablets (1,000 mg) by mouth three times daily. 180 Tablet 10/01/19 25 Active albuterol HFA 90 mcg/actuation inhalerIndication s:Wheezing Inhale 1-2 Puffs by mouth every 4 hours if needed for Shortness Of Breath or Wheezing. 18 g 11 10/01/19 25 Active atorvastatin 20 mg tabletIndications :Mixed hyperlipidemia Take 1 Tablet (20 mg) by mouth at bedtime. 90 Tablet 3 10/01/19 25 Active buPROPion 100 mg HCl tabletIndications :MDD (major depressive disorder), recurrent episode, moderate (HC) Take 1 Tablet (100 mg) by mouth two times daily. Based on updated ISMP guidelines, DO NOT crush or chew. 180 Tablet 10/01/19 25 Active cetirizine 10 mg tabletIndications :Seasonal allergic rhinitis due to pollen Take 1 Tablet (10 mg) by mouth once daily. 90 Tablet 10/01/19 25 Active cholecalciferol (Vitamin D-3) 2,000 unit capsuleIndication s:Vitamin D deficiency Take 1 Capsule (2,000 units) by mouth once daily. 90 Capsule 10/01/19 25 Active docusate 100 mg capsuleIndication s:Chronic constipation Take 1 Capsule (100 mg) by mouth once daily. 90 Capsule 10/01/19 25 Active fluticasone (50 mcg per actuation) nasal solution (FLONASE)Indicati ons:Non-seasonal allergic rhinitis due to pollen Inhale 2 Sprays in both nostrils once daily. 48 g 10/01/19 25 Active furosemide 20 mg tabletIndications :Peripheral edema TAKE 1 TABLET BY MOUTH EVERY MONDAY AND MONDAY 24 Tablet 10/01/19 25 Active hydroCHLOROthiazi de 12.5 mg tabletIndications :Primary hypertension Take 1 Tablet (12.5 mg) by mouth once daily in the morning. 90 Tablet 10/01/19 25 Active hydrOXYzine HCL 25 mg tabletIndications :Panic attacks Take 25 mg bid for anxiety. Doses must be taken at least 6 hours apart. 180 Tablet 10/01/19 25 Active lactase 3,000 unit tabletIndications :Lactose intolerance Take 1 Tablet (3,000 units) by mouth 4 times daily if needed for Lactose Intolerance. 100 Tablet 10/01/19 25 Active levothyroxine 175 mcg tabletIndications :Hypothyroidism (acquired) Take 1 Tablet (175 mcg) by mouth before breakfast. 90 Tablet 10/01/19 25 Active Lidocaine-Hydroco rtisone Lamont 3-0.5 % topical creamIndications: Peripheral sensory neuropathy Apply topically to affected area(s) at bedtime if needed (nerupathy in feet). 28.3 g 10/01/19 25 Active losartan 100 mg tabletIndications :Primary hypertension Take 1 Tablet (100 mg) by mouth once daily. 90 Tablet 3 10/01/19 25 Active meclizine 12.5 mg tabletIndications :Vertigo Take 1 Tablet (12.5 mg) by mouth 3 times daily if needed for Vertigo. 60 Tablet 2 10/01/19 25 Active melatonin 3 mg tabletIndications :Insomnia, idiopathic TAKE 1 & 1/2 TABLETS (4.5 MG) BY MOUTH EVERY NIGHT AT BEDTIME 135 Tablet 3 10/01/19 25 Active metoprolol succinate (Toprol XL) 50 mg sustained-release tabletIndications :Nonrheumatic mitral valve stenosis Take 1 Tablet (50 mg) by mouth once daily. 90 Tablet 3 10/01/19 25 Active Multivitamin Cmb No.21-Iron-FA (Certavite-Antiox idant) 18-400 mg-mcg tabIndications:Il eostomy status (HC) Take 2 Tablets by mouth once daily. 180 Tablet 3 10/01/19 25 Active nortriptyline 10 mg capsuleIndication s:Peripheral sensory neuropathy,Chroni c insomnia Take 1 Capsule (10 mg) by mouth at bedtime. 90 Capsule 3 10/01/19 25 Active omeprazole 40 mg Delayed-Release capsuleIndication s:Chronic GERD Take 1 Capsule (40 mg) by mouth once daily before a meal. 90 Capsule 3 10/01/19 25 Active oxybutynin 5 mg tabletIndications :OAB (overactive bladder) Take 1 Tablet (5 mg) by mouth two times daily. 180 Tablet 3 10/01/19 25 Active triamcinolone 0.1 % ointmentIndicatio ns:Contact dermatitis, unspecified contact dermatitis type, unspecified trigger Apply topically to affected area(s) two times daily. 80 g 2 10/01/19 25 Active umeclidinium 62.5 mcg/actuation inhalerIndication s:Other emphysema (HC) Inhale 1 Puff by mouth once daily. Discard inhaler 6 weeks after opening or when the counter reads '0' (after all blisters have been used), whichever comes first. 30 Each 10/01/19 25 Active venlafaxine 75 mg tabletIndications :MDD (major depressive disorder), recurrent episode, moderate (HC) Take 1 Tablet (75 mg) by mouth two times daily. 180 Tablet 3 10/01/19 25 Active nystatin powder powderIndications :Intertriginous candidiasis Apply 1 Strip topically to affected area(s) each time if needed (rash in groin, under breasts, around stoma, toes). 60 g 2 10/01/19 25 Active diclofenac topical (VOLTAREN) 1 % gelIndications:Ch ronic pain of both knees Apply 4 grams topically to affected joint BID. 100 g 9 12/04/19 25 Active pregabalin (LYRICA) 150 mg capsuleIndication s:Peripheral sensory neuropathy TAKE 1 CAPSULE BY MOUTH TWICE A DAY 180 Capsule 1 12/07/19 25 Active diclofenac topical 1 % gelIndications:Ch ronic pain of both knees Apply 4 g topically to affected area(s) four times daily. 100 g 9 10/01/19 25 2024 Discontinued(R eorder (E-cancel not sent)) pregabalin 150 mg capsuleIndication s:Peripheral sensory neuropathy Take 1 Capsule (150 mg) by mouth two times daily. 180 Capsule 1 10/29/19 25 2024 Discontinued Active Problems Problem Noted Date Diagnosed [...] Encounters Date Type Department Care Team Description 12/10/2024 Telephone [facility] [address] [facility] [address] [place] [id number] Ottoniel Babb MD, PhD Referral 12/05/2024 Telephone [facility] [address] [place] [address] Prabha Nice PA Medication Management (pregabalin 150 mg capsule ) 12/04/2024 Refill [facility] [address] [place] [address] Prabha Nice PA Refill Request (Pregabalin) 12/02/2024 Telephone [facility] [address] [place] [address] Prabha Nice PA Questions 11/14/2024 Orders Only [facility] Scanner 1 scan: (1-Ord) 11/14/2024 11/14/2024 Orders Only [facility] Scanner 1 scan: (1-Ord) [facility], XR CHEST 2V, 11/14/2024 11/14/2024 Nurse Triage [facility] [address] [place] [address] Prabha Nice PA Fatigue 10/31/2024 Telephone [facility] [address] [place] [address] Prabha Nice PA Questions (pain) 10/25/2024 Telephone [facility] [address] [place] [address] Prabha Nice PA Follow Up 09/30/2024 12:50 PM CDT Office Visit [facility] [address] [place] [address] Prabha Nice PA Medicare ANNUAL (subsequent) Visit 09/30/2024 Travel from Last 3 Months Immunizations Immunization Administration Dates Next Due COVID-19 VACCINE SPIKEVAX (M ODERNA 50MCG/0.5ML) 12YO+ PFS 02/13/2024,05/11/2023 COVID-19 vaccine (Bluesocket-Bio NTech 30mcg/0.3mL) PF, MDV 02/22/2021 Influenza A [...] on file Legal Sex Female 5:18 AM 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 Gender Identity Not on file Sexual Orientation [...] 09/30/2024 12:51 PM CDT Plan of Treatment Upcoming Encounters Date Type Department Care Team (Late st Contact Info) Description 12/27/2024 9:50 AM CDT Office Visit [facility] [address] [place] [address] Prabha Nice PA [address] [place] [address] 03/17/2025 10:30 AM 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 Office Visit [facility] [address] [facility] [address] [place] [address] Ottoniel Babb MD, PhD [address] [facility] [address] [place] [address] Health Maintenance Due Date Last Done Comments [...] Procedure Name Priority Date/Time Associated Diagnosis Comments SCAN-ELECTROCARDIOGR AM EKG 11/14/2024 12:00 AM CDT SCAN-RADIOLOGY REPORT 11/14/2024 12:00 AM CDT TSH Routine 09/30/2024 1:52 PM CDT Hypothyroidism [...] examination from Last 3 Months Results * SCAN-RADIOLOGY REPORT (11/14/2024 12:00 AM CDT) Anatomical Region Laterality Modality Other us Scanner OTHER Final Result * SCAN-ELECTROCARDIOGRAM EKG (11/14/2024 12:00 AM CDT) us Scanner OTHER Final Result * HEMOGLOBIN A1C (09/30/2024 1:52 PM CDT) HEMOGLOBIN A1C 5.6 <5.7 % [employer] [facility] Comment: For the purpose of screening for the presence of diabetes: <5.7% Consistent with the absence of diabetes 5.7-6.4% Consistent with increased risk for diabetes (prediabetes) > or =6.5% Consistent with diabetes This assay result is consistent with a decreased risk of diabetes. Currently, no consensus exists regarding use of hemoglobin A1c for diagnosis of diabetes in children. According to [place] Diabetes Association (ADA) guidelines, hemoglobin A1c <7.0% represents optimal control in non- diabetic patients. Different metrics may apply to specific patient populations. Standards of Medical Care in Diabetes(ADA). Blood BLOOD SPECIMEN / Unknown 09/30/2024 1:52 PM CDT 09/30/2024 1:55 PM CDT us Prabha GORE CHEMISTRY Final Resu lt [facility] [address] [place] [address], [place] [phone] [facility] [address] [place] [address] * (ABNORMAL) LIPID PANEL W REFLEX MEASURED LDL (09/30/2024 1:52 PM CDT) [facility] Signature CHOLESTEROL, TOTAL 197 <200 mg/dL [employer] HDL CHOLESTEROL 54 > OR = 50 mg/dL [employer] TRIGLYCERIDES 282(H) <150 mg/dL [facility] Comment: If a non-fasting specimen was collected, consider repeat triglyceride testing on a fasting specimen if clinically indicated. Nolvia et al. J. of Clin. Lipidol. 2015;9:129-169. LDL-CHOLESTEROL 103(H) mg/dL (calc) [employer] Comment: Reference range: <100 Desirable range <100 mg/dL for primary prevention; <70 mg/dL for patients with CHD or diabetic patients with > or = 2 CHD risk factors. LDL-C is now calculated using the Herson calculation, which is a validated novel method providing better accuracy than the Friedewald equation in the estimation of LDL-C. Efra SS et al. KIRILL. 2013;310(19): 3413-1439 (http://education.[employer]/faq/JAW863) CHOL/HDLC RATIO 3.6 <5.0 (calc) [employer] NON HDL CHOLESTEROL 143(H) <130 mg/dL (calc) [employer] [facility] Comment: For patients with diabetes plus 1 major ASCVD risk factor, treating to a non-HDL-C goal of <100 mg/dL (LDL-C of <70 mg/dL) is considered a therapeutic option. Blood BLOOD SPECIMEN / Unknown 09/30/2024 1:52 PM CDT 09/30/2024 1:55 PM CDT us Prabha GORE CHEMISTRY Final Resu lt [facility] [employer] [address] [place] [address], [facility] [address] [place] [address] * TSH (09/30/2024 1:52 PM CDT) Pathologist [facility] TSH 1.05 0.40 - 4.50 mIU/L [facility] Blood BLOOD SPECIMEN / Unknown 09/30/2024 1:52 PM CDT 09/30/2024 1:55 PM CDT Prabha GORE CHEMISTRY Final Resu lt [facility] [address] [place] [address], [facility] [address] [place] [address] * (ABNORMAL) CBC AND DIFFERENTIAL (09/30/2024 1:52 PM CDT) [facility] WHITE BLOOD CELL COUNT 5.4 3.8 - [...] us Prabha GORE HEMATOLOGY Final Resu lt [employer] [address] [place] [address], [facility] [address] [place] [address] * (ABNORMAL) COMP METABOLIC PANEL (09/30/2024 1:52 PM CDT) Pathologist [facility] GLUCOSE 91 65 - 99 mg/dL [facility] Comment: Fasting reference interval UREA [...] GORE CHEMISTRY Final Resu lt [facility] [address] [place] [address], [place] [phone] [facility] [address] [place] [address] * CREATININE,ISTAT (09/30/2024 1:51 PM CDT) POCT,CREATININ E, ISTAT 1.1 0.6 - 1.3 mg/dL [facility] Blood BLOOD SPECIMEN / Unknown 09/30/2024 1:51 PM CDT 09/30/2024 1:51 PM CDT Sergio Solorio MD CHEMISTRY Final Resu lt [facility] [address] [place] [address], [place] [phone] [facility] [address] [place] [address] from Last 3 Months Insurance [id number] [place] [address] [facility] MEDICARE PART A HB ONLY Advance Directives Documents on File Type Date Recorded 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
--- OUTSIDE RECORDS SUMMARY | 2024-12-22 08:35 | XMS_ITS | Clinical Summary ---
Author Organization [facility] Address [address] [place] [address] Care Team Providers Care Vocational Auto Body Instructor Name Role Phone Prabha Nice PA-C Primary Care Provider [phone] Prabha Nice PA-C Unavailable [phone] Allergies Active Allergy Reactions Criticality Noted Date [...] mg by mouth 2 times daily. Active BUPROPION HCL PO Take by mouth. Active cetirizine (ZYRTEC) 10 MG tablet Take 10 mg by mouth daily. Active FUROSEMIDE PO Take by mouth. Active GABAPENTIN PO Take by mouth. Active Levothyroxine Sodium (SYNTHROID PO) Take by mouth. Active HYDROCHLOROTHIA ZIDE PO Take by mouth. Active HYDROXYZINE HCL PO Take by mouth. Active LOSARTAN POTASSIUM PO Take by mouth. Active METOPROLOL SUCCINATE PO Take by mouth. Active VENLAFAXINE HCL PO Take by mouth. Active OMEPRAZOLE PO Take by mouth. Active cephALEXin (KEFLEX) 500 MG capsule Take 1 capsule (500 mg) by mouth 3 times daily for 7 days. 21 capsule 12/14/2024 12/22/19 25 Active Problems Problem Noted Date Diagnosed Date Bowel obstruction 05/26/2024 Acute kidney failure, unspecified 03/25/2023 SBO (small bowel obstruction) 03/22/2023 Encounters Date Type Department Care Team Description 12/14/2024 1:56 AM CDT - 12/14/2024 8:03 AM CDT [facility] [address] [place] [address] Kirby Bush MD Burns, Bradley Joseph, DO Fall, initial encounter (Primary Dx); Complex lacerations of face, initial encounter Discharge Disposition: Home or Self Care 12/14/2024 Travel from Last 3 Months Immunizations Immunization Administration Dates Next Due TDAP (Adacel,Boostrix) 12/14/2024 Family History Medical History Relation Comments Ulcerative [...] Answer Date Recorded Do you have housing? 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 Gender Identity Not on file Sexual Orientation [...] (205 lb) 12/14/2024 4:02 AM CDT Height 160 cm (5' 3) 05/26/2024 8:42 AM LABOR RELATIONS OR PERSONNEL NEGOTIATOR Body Mass Index 36.31 05/26/2024 8:42 AM LABOR RELATIONS OR PERSONNEL NEGOTIATOR Plan of Treatment Health Maintenance Due Date [...] 02/06/2023, 02/17/2022, Additional history exists DIABETES SCREENING 12/15/2027 12/14/2024, 0 05/26/2024, 05/25/2024, Additional history exists DEXA 08/11/2030 08/12/2015, 08/12/2015 DTAP/TDAP/TD VACCINE (4 - Td or Tdap) 12/14/2034 12/14/2024, 12/27/2022, 03/21/2012, Additional history exists PNEUMOCOCCAL VACCINE 50+ YEARS Completed 08/15/2023, 11/11/2014, 09/28/2009, Additional history exists HPV VACCINE (No Doses Required) Completed MENINGITIS VACCINE Aged Out No longer eligible based on patient's age to complete this topic Procedures Procedure Name Priority Date/Time Associated Diagnosis Comments EXTRA RED TOP TUBE STAT 12/14/2024 2: 43 AM CDT EXTRA BLUE TOP TUBE STAT 12/14/2024 2 :43 AM CDT EXTRA TUBE STAT 12/14/2024 2:43 AM CDT CBC WITH PLATELETS (LIMITED OCCURRENCES) STAT 12/14/2024 2:43 AM CDT BASIC METABOLIC PANEL (LIMITED OCCURRENCES) STAT 12/14/2024 2:[address] CERVICAL SPINE W/O CONTRAST STAT 12/14/2024 2:[address] FACIAL BONES WITHOUT CONTRAST STAT 12/14/2024 2:[address] HEAD W/O CONTRAST STAT 12/14/2024 2:31 AM CDT EKG 12-LEAD, TRACING ONLY STAT 12/14/2024 1:56 AM CDT from Last 3 Months Results * Extra Red Top Tube (12/14/2024 2:43 AM CDT) Hold Specimen [facility] 12/14/2024 3:46 AM CDT LABORATORY Blood BLOOD SPECIMEN / Unknown Venipuncture / Unknown 12/14/2024 2:43 AM CDT 12/14/2024 2:45 AM CDT us Kirby Bush MD LAB - BLOOD ORDERABLES Final Res ult LABORATORY [facility] [address] [facility] Lab (1st floor, no room number) [place] [address], [facility] * Extra Blue Top Tube (12/14/2024 2:43 AM CDT) Hold Specimen [facility] 12/14/2024 3:46 AM CDT [facility] LABORATORY Blood BLOOD SPECIMEN / Unknown Venipuncture / Unknown 12/14/2024 2:43 AM CDT 12/14/2024 2:45 AM CDT Kirby Bush MD LAB - BLOOD ORDERABLES Final Res ult RH LABORATORY [facility] [address] Lab (1st floor, no room number) [place] [address], [facility] * (ABNORMAL) CBC with Platelets (Limited Occurrences) (12/14/2024 2:43 AM CDT) WBC Count 5.68 4.00 - 11.00 10e3/uL [...] - BLOOD ORDERABLES Final Res ult LABORATORY [facility] [address] Lab (1st floor, no room number) [place] [address], [facility] * (ABNORMAL) Basic Metabolic Panel (Limited [...] 12/14/2024 3:05 AM CDT LABORATORY Comment:eGFR calculated usin 2020 CKD-EPI equation. Calcium 9.1 8.8 - 10.4 mg/dL 12/14/2024 3:05 AM CDT LABORATORY Glucose 103(H) 70 - 99 mg/dL 12/14/2024 3:05 AM CDT LABORATORY Blood BLOOD SPECIMEN / Unknown Venipuncture / Unknown 12/14/2024 2:43 AM CDT 12/14/2024 2:45 AM CDT Kirby Bush MD LAB - BLOOD ORDERABLES Final Res ult LABORATORY [facility] [address] Lab (1st floor, no room number) [place] [address] * CT Cervical Spine w/o Contrast (12/14/2024 [...] CONTRAST, CT FACIAL BONES WITHOUT CONTRAST LOCATION: [facility] DATE: 12/14/2024 INDICATION: Fall, facial trauma COMPARISON: [...] W/O CONTRAST, CT FACIALBONES WITHOUT CONTRAST LOCATION: [facility] DATE: 12/14/2024 INDICATION: Fall, facial trauma COMPARISON: [...] MD IMG CT ORDERABLES Final Result * CT Facial [...] CONTRAST, CT FACIAL BONES WITHOUT CONTRAST LOCATION: [facility] DATE: 12/14/2024 INDICATION: Fall, facial trauma COMPARISON: [...] W/O CONTRAST, CT FACIALBONES WITHOUT CONTRAST LOCATION: [facility] DATE: 12/14/2024 INDICATION: Fall, facial trauma COMPARISON: [...] or neural foraminal stenosis. Kirby Bush MD [facility] ORDERABLES Final Result * Head CT [...] CONTRAST, CT FACIAL BONES WITHOUT CONTRAST LOCATION: [facility] DATE: 12/14/2024 INDICATION: Fall, facial trauma COMPARISON: [...] W/O CONTRAST, CT FACIALBONES WITHOUT CONTRAST LOCATION: [facility] DATE: 12/14/2024 INDICATION: Fall, facial trauma COMPARISON: [...] Atrial Rate 67 BPM RADIOLOG Y RESULTS IA Interval 214 ms RADIOLOG Y RESULTS QRS Duration 84 ms RADIOLO GY RESULTS QT 400 ms RADIOLOGY RESULTS QTc 422 ms RADIOLOGY RESULTS P [place] 36 degrees RADIOLOGY RESULTS R AXIS 0 degrees RADIOLOGY RESULTS T [place] 48 degrees RADIOLOGY RESULTS Interpretation ECG Unconfirmed report - interpretation of this ECG is computer generated - see medical record for final interpretation Sinus rhythm with 1st degree A-V block Possible Left atrial enlargement Anterior infarct , age undetermined Abnormal ECG No previous ECGs available Confirmed by - EMERGENCY ROOM, PHYSICIAN ([id number]), assistant production editor ADRIANNA VANCE ([id number]) on 12/16/2024 7:13:14 AM RADIOLOGY RESULTS 12/14/2024 1:56 AM CDT 12/16/2024 7:13 AM CDT Kirby Bush MD ECG ORDERABLES Edited Result - Final Performing Organization Address City/State/[facility] Co de Phone Number RADIOLOGY RESULTS from Last 3 Months Insurance [employer] MEDICARE ADVANTAGE MEDICAID [place] LIMITED / MEDICAID [place] [employer] MEDICARE ADVANTAGE [facility] MEDICARE ADVANTAGE MEDICAID [place] LIMITED / MEDICAID [place] [employer] MEDICARE ADVANTAGE Advance Directives For more information, please contact: [phone] * Full Code (Latest Code Status on File) Date Activated Date Inactivated Comments 05/26/2024 12:55 AM 05/27/2024 6:58 PM All basic a nd advanced life-sustaining interventions are performed as appropriate Question Answer Comments Code status determined by: Discussion with patie nt/ legal decision maker * Full Code Date Activated Date Inactivated Comments 03/22/2023 6:21 PM 03/27/2023 3:49 PM All basic and advanced life-sustaining interventions are performed as appropriate Question Answer Comments Code status determined by: Discussion with ty nt/ legal decision maker Care Teams Vocational Auto Body Instructor Relationship Specialty Start Date End Date Prabha Nice PA-C [address] [place] [address] PCP - General 12/14/24 Prabha Nice PA-C [address] [place] [address] 12/14/24
[2024-12-22 08:41] VITALS: BP 172/76; PULSE 72; RESP 18; TEMP 36.5; O2SAT 96; BMI 36.3
--- NOTE | 2024-12-22 08:50 | CRLHL7_ITS ---
For Patients: As a result of the Century Cures Act, medical imaging exams and procedure reports are released immediately into your electronic medical record. You may view this report before your referring provider. If you have questions, please contact your health care provider. INDICATION: Fall. TECHNIQUE: CT of the face without contrast. Coronal reconstructions are included. COMPARISON: None. FINDINGS: No acute fracture of the maxillofacial bones. A large frontal scalp contusion. The orbital contents are normal in appearance. There is no evidence for penetrating injury to the ocular globes. The lenses are situated in their normally expected anterior locations. No radiodense or metallic foreign body is demonstrated. The sinonasal cavities are clear. The nasal septum is relatively midline. The visualized portions of the brain are normal in appearance. IMPRESSION: 1. No acute fracture of the maxillofacial bones. 2. A large frontal scalp contusion. Please note that all CT scans at this facility use dose modulation, iterative reconstruction, and/or weight-based dosing when appropriate to reduce radiation dose to as low as reasonably achievable. Dictated by Jared Beckman MD @ 12/22/2024 9:34:13 AM (Electronically Signed)
--- NOTE | 2024-12-22 08:50 | CRLHL7_ITS ---
For Patients: As a result of the Century Cures Act, medical imaging exams and procedure reports are released immediately into your electronic medical record. You may view this report before your referring provider. If you have questions, please contact your health care provider. INDICATION: Fall. TECHNIQUE: CT of the head without contrast. Coronal and sagittal reformats are included. COMPARISON: None. FINDINGS: No acute intracranial hemorrhage. No mass effect or midline shift. No hydrocephalus or extra-axial collections. Scattered white matter hypoattenuation, typical for chronic microvascular ischemic change. No acute osseous abnormalities. Mastoid air cells and paranasal sinuses are clear. A large frontal scalp contusion. IMPRESSION: IMPRESSION: 1. No acute intracranial abnormalities. Please note that all CT scans at this facility use dose modulation, iterative reconstruction, and/or weight-based dosing when appropriate to reduce radiation dose to as low as reasonably achievable. Dictated by Jaerd Beckman MD @ 12/22/2024 9:37:20 AM (Electronically Signed)
--- NOTE | 2024-12-22 09:09 | ED.GENADULT ---
HPI - General Adult General Chief complaint: Head Injury/Pain Stated complaint: fall/head injury Time Seen by Provider: 12/22/24 08:36 Source: patient Mode of arrival: EMS Limitations: no limitations History of Present Illness HPI narrative: 79-year-old female, resident at the [facility] presents today after falling last night. She states that she fell forward and caught herself on the way down, did not hit her head. However she told nursing staff that she fell last night in her POA want her to be seen. She states that she has a headache across her forehead and down into her nose but again states that she did not hit her head yesterday. She did fall last week, was seen at another hospital and had a laceration repair of the forehead. She states that last night before her fall she noticed that the bump underneath her laceration was getting bigger. She states that it is grown quite a bit in the last 12 hours. She is not on any blood thinners. She denies vision changes, ringing in her ears, confusion or any neurologic changes. She denies neck pain. Related Data Home Medications ?Medication ?Instructions ?Recorded ?Confirmed diclofenac sodium 1 % topical gel 4 g topical QID PRN pain 12/27/22 11/14/24 fluticasone propionate 50 2 spray intranasal DAILY PRN 12/27/22 11/14/24 mcg/actuation nasal spray,suspension melatonin 3 mg tablet 5 mg PO HS insomnia 12/27/22 11/14/24 multivitamin with minerals-folic 2 tab PO DAILY@1200 12/27/22 11/14/24 acid 80 mcg chewable tablet (Centrum Adult 50 Plus) omeprazole 40 mg capsule,delayed 40 mg PO DAILY 12/27/22 11/14/24 release venlafaxine 75 mg tablet 75 mg PO Q12H 12/27/22 11/14/24 acetaminophen 500 mg tablet 1,000 mg PO 3XD PRN 03/22/23 11/14/24 cholecalciferol (vitamin D3) 50 50 mcg PO DAILY 03/22/23 11/14/24 mcg (2,000 unit) capsule furosemide 20 mg tablet 20 mg PO MOFR 03/22/23 11/14/24 cetirizine 5 mg tablet 10 mg PO HS PRN 09/15/23 11/14/24 hydrochlorothiazide 12.5 mg tablet 12.5 mg PO DAILY 09/15/23 11/14/24 lactase 3,000 unit tablet 3,000 unit PO QID PRN 09/15/23 11/14/24 metoprolol succinate 50 mg 50 mg PO DAILY 10/12/23 11/14/24 tablet,extended release 24 hr bupropion HCl 100 mg tablet 100 mg PO TID 05/25/24 11/14/24 docusate sodium 100 mg capsule 100 mg PO DAILY 05/25/24 11/14/24 hydroxyzine HCl 25 mg tablet 25 mg PO Q6H PRN 05/25/24 11/14/24 levothyroxine 175 mcg tablet 175 mcg PO DAILY 05/25/24 11/14/24 losartan 100 mg tablet 100 mg PO HS 05/25/24 11/14/24 nystatin 100,000 unit/gram topical 1 applic topical TID PRN 05/25/24 11/14/24 powder oxybutynin chloride 5 mg 5 mg PO DAILY 05/25/24 11/14/24 tablet,extended release 24 hr pregabalin 75 mg capsule 150 mg PO BID 05/25/24 11/14/24 biotin 10,000 mcg chewable tablet 1 mcg PO DAILY 08/27/24 08/27/24 (Hair, Skin and Nails (biotin)) sennosides 8.6 mg tablet 8.6 mg PO BID PRN 08/27/24 11/14/24 (Evac-U-Gen (sennosides)) Previous Rx's ?Medication ?Instructions ?Recorded meclizine 12.5 mg tablet 12.5 mg PO TID PRN #20 tabs 03/04/24 valacyclovir 1 gram tablet 1,000 mg PO TID #21 tabs 08/27/24 (Valtrex) Allergies Allergy/AdvReac Type Severity Reaction Status Date / Time droperidol Allergy Unknown Verified 08/27/24 10:01 metoclopramide (From Reglan) Allergy Unknown Verified 08/27/24 10:01 Polyglactin Allergy Unknown Verified 08/27/24 10:01 Sulfa (Sulfonamide Allergy Unknown Verified 08/27/24 10:01 Antibiotics) Review of Systems Status of ROS: Reports: 10 or more systems reviewed and unremarkable except as noted in History and below [facility] Medical History Paroxysmal atrial fibrillation with rapid ventricular response ?I48.0 - Paroxysmal atrial fibrillation (ICD-10) Obstructive sleep apnea ?G47.33 - Obstructive sleep apnea (adult) (pediatric) (ICD-10) Mild cognitive impairment ?G31.84 - Mild cognitive impairment of uncertain or unknown etiology (ICD-10) COPD (chronic obstructive pulmonary disease) ?J44.9 - Chronic obstructive pulmonary disease, unspecified (ICD-10) Hypothyroidism ?E03.9 - Hypothyroidism, unspecified (ICD-10) Hyperlipidemia ?E78.5 - Hyperlipidemia, unspecified (ICD-10) Hypertension ?I10 - Essential (primary) hypertension (ICD-10) Hepatic steatosis ?K76.0 - Fatty (change of) liver, not elsewhere classified (ICD-10) SBO (small bowel obstruction) (03/22/23) ?K56.609 - Unspecified intestinal obstruction, unspecified as to partial versus complete obstruction (ICD-10) Pulmonary HTN (05/18/18) ?I27.20 - Pulmonary hypertension, unspecified (ICD-10) CORAL (obstructive sleep apnea) (02/22/21) ?G47.33 - Obstructive sleep apnea (adult) (pediatric) (ICD-10) HTN (hypertension) (02/22/21) ?I10 - Essential (primary) hypertension (ICD-10) COPD (chronic obstructive pulmonary disease) (02/22/21) ?J44.9 - Chronic obstructive pulmonary disease, unspecified (ICD-10) Stage 3a chronic kidney disease (05/14/23) ?N18.31 - Chronic kidney disease, stage 3a (ICD-10) PMR (polymyalgia rheumatica) (02/22/21) ?M35.3 - Polymyalgia rheumatica (ICD-10) Peripheral sensory neuropathy (11/28/23) ?G60.8 - Other hereditary and idiopathic neuropathies (ICD-10) Major depressive disorder, recurrent episode, moderate (02/06/18) ?F33.1 - Major depressive disorder, recurrent, moderate (ICD-10) BIENVENIDO (generalized anxiety disorder) (02/22/21) ?F41.1 - Generalized anxiety disorder (ICD-10) Fibromuscular dysplasia of renal artery (02/22/21) ?I77.3 - Arterial fibromuscular dysplasia (ICD-10) Dyslipidemia (high LDL; low HDL) (03/01/18) ?E78.5 - Hyperlipidemia, unspecified (ICD-10) Acute kidney failure, unspecified (03/25/23) ?N17.9 - Acute kidney failure, unspecified (ICD-10) Small bowel obstruction ?K56.609 - Unspecified intestinal obstruction, unspecified as to partial versus complete obstruction (ICD-10) POLST (Physician Orders for Life-Sustaining Treatment) (~08/26/21) ?Z78.9 - Other specified health status (ICD-10) History of renal stone ?Z87.442 - Personal history of urinary calculi (ICD-10) History of DVT (deep vein thrombosis) ?Z86.718 - Personal history of other venous thrombosis and embolism (ICD-10) History of ischemic bowel disease (~2005) ?Z87.19 - Personal history of other diseases of the digestive system (ICD-10) Bleeding gastric varices (~2012) ?I86.4 - Gastric varices (ICD-10) Surgical History H/O gastrostomy ?Z98.890 - Other specified postprocedural states (ICD-10) S/P laparotomy with lysis of adhesions ?Z98.890 - Other specified postprocedural states (ICD-10) Ileostomy status (02/22/21) ?Z93.2 - Ileostomy status (ICD-10) S/P bunionectomy ?Z98.890 - Other specified postprocedural states (ICD-10) S/P repair of ventral hernia ?Z98.890 - Other specified postprocedural states (ICD-10) ?Z87.19 - Personal history of other diseases of the digestive system (ICD-10) H/O thumb surgery ?Z98.890 - Other specified postprocedural states (ICD-10) S/P carpal tunnel release ?Z98.890 - Other specified postprocedural states (ICD-10) Status post bilateral knee replacements (~2014) ?Z96.653 - Presence of artificial knee joint, bilateral (ICD-10) S/P colectomy ?Z90.49 - Acquired absence of other specified parts of digestive tract (ICD-10) S/P gastric bypass ?Z98.84 - Bariatric surgery status (ICD-10) Social History What is your current living situation?: I presently have a place to live Problems where you live: no known problems Problems where you live details: n/a In the past 12 months, utilities in danger of being shut off: no In past 12 months, lack of transportation kept you from medical appts, meetings, work, or getting things needed for daily living: no In the past 12 mos, have been you worried that your food would run out before you had money to buy more?: never true In the past 12 mos, the food you bought just didn't last and you didn't have money to buy more?: sometimes true Smoking Status: Never smoker Do you use any of these nicotine containing products: None Second hand tobacco smoke exposure: No How often do you have a drink containing alcohol: monthly or less How many standard drinks containing alcohol do you have on a typical day: 1 or 2 AUDIT-C Alcohol total score: 1 Non-prescribed substance use: denies use How often does anyone, including family, friends and others, physically hurt you: never How often does anyone, including family, friends and others, insult or talk down to you: never How often does anyone, including family, friends and others, threaten you with harm: never How often does anyone, including family, friends and others, scream or curse at you: never service: No Health Related Social Needs: food insecurity (Z59.41) Exam Narrative: Exam Narrative: Well-nourished well-developed patient in no acute distress. Alert and oriented x3. Answers questions appropriately. No tangential or magical thinking noted. Patient speaks in full sentences without needing to catch her breath. GCS is 15. She is not in any respiratory distress. Speaks without difficulty. HEENT: Patient has a large hematoma over her forehead. She has healing laceration, sutures have already been removed. She has tenderness over the hematoma and tenderness over the bridge of her nose. Pupils are equally round reactive to light. Extraocular muscles are intact. Conjunctivae are moist without any icterus noted. Moist mucous membranes. Posterior pharynx is normal. Neck is soft. Patient has no tenderness to palpation at the cervical, thoracic or lumbar spine. Patient has full range of motion at the neck with flexion, extension, side way bending and rotation without pain. No pain over the anterior chest wall or abdomen. Cardiovascular is regular rate and rhythm. Lungs are clear bilaterally. Const: Vital Signs, click to edit/add: Vital Signs - 24 hr 12/22/24 08:41 Temperature 97.7 F Pulse Rate [Pulse Oximeter] 72 Respiratory Rate 18 Blood Pressure [Ri ght Upper Arm] 172/76 H Pulse Oximetry 96 Oxygen Delivery Me thod Room Air Course Course ED Course: Head and facial bone CT do not show any acute injuries. Large frontal scalp contusion noted. Vital Signs Vital signs: Initial Vital Signs Temperature 97.7 F 12/22/24 08:41 Temperature Source Temporal Artery Scan 12/22/24 08:41 Pulse Rate 72 12/22/24 08:41 Pulse Rhythm Regular 12/22/24 08:41 Respiratory Rate 18 12/22/24 08:41 Blood Pressure 172/76 H 12/22/24 08:41 Blood Pressure Mean 108 H 12/22/24 08:41 Blood Pressure Position Sitting 12/22/24 08:41 Pulse Oximetry 96 12/22/24 08:41 Oxygen Delivery Method Room Air 12/22/24 08:41 Vital Signs Temperature 97.7 F 12/22/24 08:41 Pulse Rate 72 12/22/24 08:41 Respiratory Rate 18 12/22/24 08:41 Blood Pressure 172/76 H 12/22/24 08:41 Pulse Oximetry 96 12/22/24 08:41 Oxygen Delivery Method Room Air 12/22/24 08:41 Temperature 97.7 F 12/22/24 08:41 Pulse Rate 72 12/22/24 08:41 Respiratory Rate 18 12/22/24 08:41 Blood Pressure 172/76 H 12/22/24 08:41 Pulse Oximetry 96 12/22/24 08:41 Oxygen Delivery Method Room Air 12/22/24 08:41 Medical Decision Making MDM Narrative Medical decision making narrative: 79-year-old female status post fall 1 week ago with a contusion or hematoma of the frontal scalp. No new injuries. No new injuries per patient's own account. Discharge home at this time. Recommend icing frontal area of the face. Imaging Data CT facial bones: Attestation: I have reviewed the pertinent imaging results. Radiologist's impression: TECHNIQUE: CT of the face without contrast. Coronal reconstructions are included. COMPARISON: None. FINDINGS: No acute fracture of the maxillofacial bones. A large frontal scalp contusion. The orbital contents are normal in appearance. There is no evidence for penetrating injury to the ocular globes. The lenses are situated in their normally expected anterior locations. No radiodense or metallic foreign body is demonstrated. The sinonasal cavities are clear. The nasal septum is relatively midline. The visualized portions of the brain are normal in appearance. IMPRESSION: 1. No acute fracture of the maxillofacial bones. 2. A large frontal scalp contusion. CT scan - head: Attestation: I have reviewed the pertinent imaging results. Radiologist's impression: TECHNIQUE: CT of the head without contrast. Coronal and sagittal reformats are included. COMPARISON: None. FINDINGS: No acute intracranial hemorrhage. No mass effect or midline shift. No hydrocephalus or extra-axial collections. Scattered white matter hypoattenuation, typical for chronic microvascular ischemic change. No acute osseous abnormalities. Mastoid air cells and paranasal sinuses are clear. A large frontal scalp contusion. IMPRESSION: IMPRESSION: 1. No acute intracranial abnormalities. Discharge Plan Discharge Clinical Impression: Fall, Contusion of forehead Patient Disposition: Home, Self-Care Condition: Stable Additional Instructions: Head and facial CT did not show any acute injuries. Recommend icing the forehead for 20 minutes at a time every 2-3 hours for the next 24 hours. Do not apply ice directly to the skin. Prescriptions: No Action metoprolol succinate 50 mg tablet extended release 24 hr 50 mg PO DAILY hydrochlorothiazide 12.5 mg tablet 12.5 mg PO DAILY lactase 3,000 unit tablet 3,000 unit PO QID PRN Rx Instructions: administer with meals and/or snacks acetaminophen 500 mg tablet 1,000 mg PO 3XD PRN cholecalciferol (vitamin D3) 50 mcg (2,000 unit) capsule 50 mcg PO DAILY furosemide 20 mg tablet 20 mg PO MOFR Rx Instructions: MON AND FRI cetirizine 5 mg tablet 10 mg PO HS PRN sennosides [Evac-U-Gen (sennosides)] 8.6 mg tablet 8.6 mg PO BID PRN Hair, Skin and Nails (biotin) 10,000 mcg tablet,chewable 1 mcg PO DAILY valacyclovir [Valtrex] 1 gram tablet 1,000 mg PO TID Qty: 21 2RF Centrum Adult 50 Plus 80 mcg tablet,chewable 2 tab PO DAILY@1200 venlafaxine 75 mg tablet 75 mg PO Q12H melatonin 3 mg tablet 5 mg PO HS omeprazole 40 mg capsule,delayed release(DR/EC) 40 mg PO DAILY fluticasone propionate 50 mcg/actuation spray,suspension 2 spray INTRANASAL DAILY PRN diclofenac sodium 1 % gel 4 g topical QID PRN (Reason: pain) meclizine 12.5 mg tablet 12.5 mg PO TID PRNQty: 20 0RF hydroxyzine HCl 25 mg tablet 25 mg PO Q6H PRN levothyroxine 175 mcg tablet 175 mcg PO DAILY losartan 100 mg tablet 100 mg PO HS pregabalin 75 mg capsule 150 mg PO BID docusate sodium 100 mg capsule 100 mg PO DAILY oxybutynin chloride 5 mg tablet extended release 24hr 5 mg PO DAILY bupropion HCl 100 mg tablet 100 mg PO TID nystatin 100,000 unit/gram powder 1 applic topical TID PRN Rx Instructions: apply to groin folds three times daily as needed. Follow Up/Referrals: Prabha Nice PA-C [Primary Care Provider, Family Practice] Stand Alone Forms: [facility] Info Instructions
== END 2024-12-22 10:16 | disposition home or self-care (01) ==
PROVIDERS: Emergency Provider Family Medicine; PCP Physician Assistant
DX: S00.93XA Contusion of unspecified part of head, initial encounter (principal); W19.XXXA Unspecified fall, initial encounter
CPT/HCPCS: 70450; 70486; 99283; 99284

== ENCOUNTER 2024-12-22 10:09 | Outpatient (CLI) | payer MEDICARE, OTHER, SELFPAY | END 2024-12-22 10:10 | disposition home or self-care (01) | LOC: AMB 12-31 10:14 | PROVIDERS: PCP Physician Assistant; Visit Provider Family Medicine | DX: R51.9 Headache, unspecified (principal) | CPT/HCPCS: A0425; A0428 ==